=== PATIENT | female | born 1945 | race Caucasian/White ===

== ENCOUNTER 2019-10-05 13:44 | Outpatient (CLI) | payer MEDICARE, SELFPAY ==
[2019-10-05 15:43] LABS: Hepatitis B Surface Antigen Negative (Negative)
[2019-10-05 15:49] LABS: HAV RESULT Negative (Negative); Hepatitis B Core IgM Result Negative (Negative)
[2019-10-05 16:01] LABS: Hepatitis C Virus Antibody Negative (Negative)
[2019-10-08 00:22] LABS: NIL 0.01 IU/mL; Quantiferon TB Plus, 1T NEGATIVE (NEGATIVE); TB1-NIL 0.27 IU/mL
== END 2019-10-05 13:45 | disposition home or self-care (01) ==
PROVIDERS: PCP Family Medicine
DX: L40.0 Psoriasis vulgaris (principal); Z11.9 Encounter for screening for infectious and parasitic diseases, unspecified; Z79.899 Other long term (current) drug therapy
CPT/HCPCS: 36415; 80074; 86480; 86803

== ENCOUNTER 2019-10-08 12:17 | Outpatient (CLI) | payer MEDICARE, SELFPAY ==
--- NOTE | 2019-10-08 13:23 | ECG_ITS ---
Measurements Intervals [place] Rate: 75 P: 33 OR: 180 QRS: -13 QRSD: 84 T: -8 QT: 342 QTc: 383 Interpretive Statements SINUS RHYTHM LOW QRS VOLTAGE IN PRECORDIAL LEADS VOLTAGE CRITERIA FOR LVH BORDERLINE ST-T WAVE ABNORMALITY- ANT/INF LEADS BASELINE ARTIFACT- I, II, III, AVR, AVL, AVF BORDERLINE ECG Electronically Signed On 10-08-2019 13:45:44 AIRCRAFT STRU[employer] DESIGN ENGINEER by Glenn Feliz D.O.
[2019-10-08 13:54] LABS: Albumin Level 4.5 g/dL (3.5-5.1)
[2019-10-08 13:57] LABS: Hemoglobin A1C 5.9 % (<5.7)
[2019-10-08 13:58] LABS: Blood Urea Nitrogen 20 mg/dL (7-17); Calcium 11.7 mg/dL (8.4-10.2); Carbon Dioxide 33 mmol/L (22-30); Chloride 98 mmol/L (98-107); Estimated Glomerular Filt Rate 49; Glucose 94 mg/dL (65-105); Potassium 3.6 mmol/L (3.4-5.0); Sodium 140 mmol/L (137-145)
[2019-10-08 13:59] LABS: Basophils Percent Auto 0.2 % (0.2-1.2); Eosinophils Absolute Auto 0.1 K/mm3 (0-0.3); Eosinophils Percent Auto 1.9 % (0-4.4); Hematocrit 39.6 % (37.0-47.0); Hemoglobin 13.2 g/dL (12.0-15.0); Immature Granulocyte Absolute 0.02 K/mm3 (0.00-0.031); Immature Granulocyte Percent A 0.4 % (0-0.5); Lymphocytes Percent Auto 21.1 % (18.3-44.2); Mean Corpuscular HGB Conc 33.3 g/dl (32-36); Mean Corpuscular Hemoglobin 30.7 pg (26-34); Mean Corpuscular Volume 92.1 fl (80-100); Mean Platelet Volume 11.6 fl (7.4-10.4); Monocytes Absolute Auto 0.3 K/mm3 (0.1-0.6); Monocytes Percent Auto 5.8 % (2.6-8.5); Neutrophils Percent Auto 70.6 % (45.5-73.1); Platelet Count Result 217 k/mm3 (150-375); White Blood Count 5.7 K/mm3 (4.5-10.0)
[2019-10-08 14:00] LABS: Urine Cotinine NEGATIVE
== END 2019-10-08 12:18 | disposition home or self-care (01) ==
LOC: ANHSURGERY 12:21
PROVIDERS: Anesthesiology; PCP Family Medicine; Visit Provider Orthopaedic Surgery
DX: M17.0 Bilateral primary osteoarthritis of knee (principal); I10 Essential (primary) hypertension; R94.31 Abnormal electrocardiogram [ECG] [EKG]
CPT/HCPCS: 36415; 80048; 80307; 82040; 83036; 85025; 87081; 93005

== ENCOUNTER 2019-10-29 09:05 | Inpatient (IN) | payer MEDICARE, SELFPAY ==
[2019-10-08 12:28] VITALS: BMI 31.1
[2019-10-08 13:19] VITALS: BP 141/79; PULSE 74; RESP 18; TEMP 36.9; O2SAT 96
[2019-10-27] VITALS (13 sets, daily range): BP systolic 101–131; BP diastolic 50–93; PULSE 79–94; RESP 14–20; TEMP 36.3–36.9; O2SAT 92–100; BMI 33.3
--- NOTE | 2019-10-27 09:07 | WPDANESEPPF ---
Anes - Initial Pre Proc Eval Procedure: Operation Date: 10/27/19 11:00 Proposed Procedures p Left Total Knee Arthroplasty - Abiodun Santana MD Date/Time: 10/27/19 09:07 Surgeon: Abiodun Santana MD Pre Op Diagnosis: OA Left Knee Patient Data Age: 74 Gender: F Height: 1.55 m Weight: 74.7 kg Last Vital Signs Temp 36.9 C 10/08/19 13:19 Pulse 74 10/08/19 13:19 Resp 18 10/08/19 13:19 BP 141/79 H 10/08/19 13:19 Pulse Ox 96 10/08/19 13:19 Allergies Allergy/AdvReac Type Severity Reaction Status Date / Time No Known Allergies Allergy Unverified 10/27/19 09:32 Home Medications Medication Instructions Recorded Confirmed Type albuterol sulfate [Ventolin HFA] 2 puff INHALATION PRN PRN 10/08/19 10/08/19 History apremilast [Otezla] 30 mg PO BID 10/08/19 10/08/19 History atorvastatin 20 mg PO DAILY 10/08/19 10/08/19 History cholecalciferol (vitamin D3) 2,000 unit PO DAILY 10/08/19 10/08/19 History citalopram 10 mg PO DAILY 10/08/19 10/08/19 History cyanocobalamin (vitamin B-12) 1,000 mcg PO DAILY 10/08/19 10/08/19 History fenofibrate 150 mg PO DAILY 10/08/19 10/08/19 History furosemide 20 mg PO DAILY 10/08/19 10/08/19 History lisinopril-hydrochlorothiazide 1 tablet PO DAILY 10/08/19 10/08/19 History lorazepam 0.5 mg PO PRN PRN 10/08/19 10/08/19 History meloxicam 7.5 mg PO DAILY 10/08/19 10/08/19 History pantoprazole 40 mg PO QAM 10/08/19 10/08/19 History ECG: Date of Service: 10/08/19 Procedure(s): CA 12 lead EKG Accession Number(s): [id number] cc: ~ Measurements Intervals [place] Rate: 75 P: 33 PA: 180 QRS: -13 QRSD: 84 T: -8 QT: 342 QTc: 383 Interpretive Statements SINUS RHYTHM LOW QRS VOLTAGE IN PRECORDIAL LEADS VOLTAGE CRITERIA FOR LVH BORDERLINE ST-T WAVE ABNORMALITY- ANT/INF LEADS BASELINE ARTIFACT- I, II, III, AVR, AVL, AVF BORDERLINE ECG Electronically Signed On 10-08-2019 13:45:44 AIR CREW OFFICER by Glenn Feliz D.O. Dictated By: Glenn Feliz DO 10/08/19 1353 Patient hx anesthesia problems: none Family hx anesthesia problems: none PMFSH Past Medical History Medical History (Updated 10/27/19 @ 09:15 by Scar Ace MD) Anxiety Asthma Cancer UTERINE Diabetes Essential hypertension Gastroesophageal reflux disease Hypercholesterolemia Localized osteoarthritis of left knee Obstructive sleep apnea (adult) (pediatric) DEJA (obstructive sleep apnea) Psoriasis SOB (shortness of breath) Surgical History Surgical History Osteoarthritis of both knees Social History Social History Smoking status: Never smoker Alcohol intake: never Anes - Eval Final PreProcedure Day of Procedure 10/27/19 09:07 Patient weight: obese Heart: regular rate and rhythm Lungs: clear to auscultation and normal air movement Airway: Mallampati scale class II Neurological: alert and oriented Last oral intake: >/= 8 hours ASA classification: III Emergent: no Anesthetic plan: proceed Anesthesia type and monitoring: general LMA Informed Consent: The patient's anesthetic plan and its attendant risks and benefits were discussed with the patient/family/POA. Questions were solicited and answers provided to the satisfaction of the patient/family/POA.
--- NOTE | 2019-10-27 09:57 | WPDANESPNB ---
Anes - Peripheral Nerve Block Date/Time: 10/27/19 09:57 I have discussed with the patient/family/POA the placement of a peripheral nerve block for post-operative pain management, including associated risks, benefits, complications, and side effects. Alternative methods of post-operative analgesia were detailed. Questions were solicited and answers provided to the satisfaction of the patient/family/POA. Time-Out: A pre-procedural Time-Out was completed immediately before starting the procedure and confirmed: Patient Identification, Site, Procedure, Patient Position and the Availability of Requisite Equipment. Clinical Indications: Acute post-operative pain management requested by the operative surgeon. Nerve Block Insertion Note Anes-nerve block: adductor canal left Patient position: supine Skin prep: chlorhexidine Needle: 22 gauge, stimulating, insulated echogenic needle. Needle length: 80 mm Technique: ultrasound Technique comment: in plane Injectate: bupivacaine 0.5% with epi 5 mcg/ml (30cc) Observations: tolerated well Complications: none Procedure start time:: 1105 Procedure end time:: 1110
[2019-10-27] MEDS: LACTATED RINGERS 1,000 ML 30 ML IV CONT ×2 (10:00→13:24)
[2019-10-27 10:01] LABS: Estimated CRCL calculation 45 ml/min; Estimated Glomerular Filt Rate > 60
--- NOTE | 2019-10-27 10:38 | WPDHPUPDATE1 ---
History and Physical Update Update Date/Time: 10/27/19 10:38 History and Physical has been reviewed, including an updated exam of the patient. There are NO changes in the patient's condition. Risks, benefits, and alternatives have been discussed and questions answered. Patient agrees to proceed with procedure.
--- NOTE | 2019-10-27 11:26 | SUR.PREOP ---
[id number]. [facility] AND [facility]VROSE AWARE OF TODAY'S GFR RESULT, WILL PROCEED.
[2019-10-27] MEDS: ceFAZolin 2 GM/D5W 50 ML 2 GM/50 ML BAG IVPB (11:27)
[2019-10-27] MEDS: GENTAMICIN BONE CEMENT REFOBACIN 1 EACH TOPICAL (12:07)
--- NOTE | 2019-10-27 13:17 | PM.PROC ---
Procedure Note - Detailed Date of procedure: 10/27/19 Pre-op diagnosis: OA Left Knee Post-op diagnosis: same Procedure performed: Total knee arthroplasty, left Implants: [place] [employer] size 3 press-fit femur, size 3 cemented low-profile tibia, 13mm CS polyethylene insert, 35mm asymmetric metal backed patellar component. Anesthesia: GETA and regional (subsartorial nerve block) Surgeon: Abiodun Santana MD Drains: No Complications: None Findings: Fair bone quality. Very large medial release. PCL good quality. Standard bone resections. OPERATIVE DETAILS: The patient was given a nerve block preoperatively, and then brought to the operating room. A general anesthetic was administered. The leg was prepped and draped in the usual sterile fashion. The limb was elevated and the tourniquet inflated to 300 mmHg during initial exposure. A longitudinal incision was created along the medial border of the patella and patellar tendon, and a minimally invasive optimized mid-vastus approach to the knee was performed. A large medial release was taken. The knee was then flexed. The osteophytes were carefully removed. The intramedullary guide was placed in the femoral canal. The distal femoral resection was then taken with the oscillating saw. The collateral ligaments were carefully protected. The tibia was carefully exposed. The jig was applied, and the proximal tibia was resected according to preoperative plan. The knee was balanced in extension. Appropriate releases were taken where needed. The anterior cruciate ligament and meniscal remnants were removed. The posterior cruciate ligament was preserved. The patella was measured. Patellar resection was carried out with the oscillating saw. The lug holes drilled. The femur was sized and rotation assessed using a combination of gap balancing, posterior referencing, and the AP axis. The 4 in 1 cutting block was used to finish the femoral cuts after equal gaps were assured. The lug holes were drilled. The osteophytes were carefully removed from the back of the knee. The knee was copiously irrigated with antibiotic solution periodically throughout the procedure. The meniscal remnants were removed. The spacer block was used to confirm equal flexion and extension gaps. Further releases were performed as needed. The tibia was sized and broached. The bony surfaces were prepared for cementing with pulsatile lavage. The real tibial component was cemented into position followed by press fitting the femoral component. Excess cement was carefully removed. The patella component was press-fit. Patellar tracking was carefully assessed. No additional releases were required. The wound was closed with #1 Vycril suture, #2 Quill suture, 0-Quill suture, and 2-0 Quill suture followed by Steri-Strips. A sterile bulky dressing was applied. Meticulous hemostasis was maintained throughout the procedure. There were no complications. The patient was extubated and brought to the recovery room in stable condition after the application of sterile dressing with Zeke bandage.
--- NOTE | 2019-10-27 13:43 | SUR.PHASEI ---
1325 raduiology at bedside to do xray lt knee
--- NOTE | 2019-10-27 14:35 | SUR.PHASEI ---
1435 sbar faxed to floor, family updated and sent to floor
--- NOTE | 2019-10-27 15:28 | ADMGEN ---
This patient, Leia Jane, was admitted to [facility] Surg Room 328-01. Patient/family oriented to hospital policies and general routines including ID bracelet, bed and alarms, visiting hours, pain management, procedures, bathroom and other care routines, personal items, smoking policy, room service/diet, and visiting hours. Valuables list has been completed. Information on how to activate the Rapid Response Team has been discussed. Patient/Family are encouraged to report perceived risks to care and to ask questions if they do not understand what they are told or what they should do.
[2019-10-27] MEDS: DOCUSATE SODIUM 100 MG CAPSULE PO (17:50)
[2019-10-27] MEDS: ASPIRIN 81 MG ENTERIC TABLET PO (17:50)
--- NOTE | 2019-10-27 18:34 | P.CONIM_ITS ---
Assessment and Plan Assessment and plan (1) Localized osteoarthritis of left knee: Code(s): M17.12 - Unilateral primary osteoarthritis, left knee Status: Acute Assessment and Plan: * Doing well POD 0 Left TKA (2) Hypercalcemia: Code(s): E83.52 - Hypercalcemia Status: Acute Assessment and Plan: * DDx includes medication induced (HCTZ), hyperparathyroidism, paraneoplastic, myeloma * Hold HCTZ * f/u BMP, Phos, Mag, PTH, 25-OHD, protein (3) Diabetes: Qualifiers: Diabetes mellitus type: type 2 Diabetes mellitus exterminator helper termite insulin use: without exterminator helper termite use Diabetes mellitus complication status: without compli cation Qualified Code(s): E11.9 - Type 2 diabetes mellitus without complic ations Code(s): E11.9 - Type 2 diabetes mellitus without complications Status: Acute Assessment and Plan: * A1c 5.9 on diet control * Monitor AM sugar (4) Essential hypertension: Code(s): I10 - Essential (primary) hypertension Status: Acute Assessment and Plan: * Hold HCTZ and furosemide * Hold lisinopril as BP is 117 systolic tonight * Monitor (5) Gastroesophageal reflux disease: Qualifiers: Esophagitis presence: without esophagitis Qualified Code(s): K21.9 - Gastro-esophageal reflux disease without esophagitis Code(s): K21.9 - Gastro-esophageal reflux disease without esophagitis Status: Acute Assessment and Plan: * Doing well since weight loss * PRN antacid (6) DEJA (obstructive sleep apnea): Code(s): G47.33 - Obstructive sleep apnea (adult) (pediatric) Status: Acute Assessment and Plan: * Monitor for s/sx (7) Asthma: Qualifiers: Asthma severity: mild Asthma persistence: intermittent Asthma complication type: uncomplicated Qualified Code(s): J45.20 - Mild intermittent asthma, uncomplicated Code(s): J45.909 - Unspecified asthma, uncomplicated Status: Acute Assessment and Plan: * Mild, intermittent * Continue prn albuterol (8) Psoriasis: Code(s): L40.9 - Psoriasis, unspecified Status: Chronic Assessment and Plan: * Continue otezla HPI Data of Consult Consult date: 10/27/19 Requesting Physician: Abiodun Santana MD Primary Care Provider: Khang Greer MD Consult Narrative Narrative: Leia Jane is a 74 year old female with a history of chronic osteoarthritis of her knees. Over last year so she has been getting steroid injections in her knees every 3 months in order to maintain her mobility. The pain is progressed the point where she was having rest pain in her left knee. It would pop in clinic. It interfered with the activities she was to part icipate in. Her right knee was also causing problems. But the left was worsened she wished to fix it 1st. Today she had an uneventful left total knee arthroplasty. She is now alert and enjoying her evening meal. She has only minor pain at the incision site She denied other arthritic pains. She denied swollen hot red or tender joints. She denied fevers chills sweats. She denied chronic cough dyspnea or chest pain. She does have a history of asthma and has occasional wheezing. She has i nhaler to use intermittently. She has no swelling in the feet. No bowel or bladder issues. No abnormal bleeding. She does have sleep apnea but stopped using her CPAP after she lost several lb for her surgery. Review of Systems Review of Systems: All systems reviewed & are unremarkable except as noted in
--- NOTE | 2019-10-27 18:34 | PM.IMCN ---
Assessment and Plan Assessment and plan (1) Localized osteoarthritis of left knee: Code(s): M17.12 - Unilateral primary osteoarthritis, left knee Status: Acute Assessment and Plan: Doing well POD 0 Left TKA (2) Hypercalcemia: Code(s): E83.52 - Hypercalcemia Status: Acute Assessment and Plan: DDx includes medication induced (HCTZ), hyperparathyroidism, paraneoplastic, myeloma Hold HCTZ f/u BMP, Phos, Mag, PTH, 25-OHD, protein (3) Diabetes: Qualifiers: Diabetes mellitus type: type 2 Diabetes mellitus fci insulin use: without oysterman use Diabetes mellitus complication status: without complication Qualified Code(s): E11.9 - Type 2 diabetes mellitus without complications Code(s): E11.9 - Type 2 diabetes mellitus without complications Status: Acute Assessment and Plan: A1c 5.9 on diet control Monitor AM sugar (4) Essential hypertension: Code(s): I10 - Essential (primary) hypertension Status: Acute Assessment and Plan: Hold HCTZ and furosemide Hold lisinopril as BP is 117 systolic tonight Monitor (5) Gastroesophageal reflux disease: Qualifiers: Esophagitis presence: without esophagitis Qualified Code(s): K21.9 - Gastro-esophageal reflux disease without esophagitis Code(s): K21.9 - Gastro-esophageal reflux disease without esophagitis Status: Acute Assessment and Plan: Doing well since weight loss PRN antacid (6) DEJA (obstructive sleep apnea): Code(s): G47.33 - Obstructive sleep apnea (adult) (pediatric) Status: Acute Assessment and Plan: Monitor for s/sx (7) Asthma: Qualifiers: Asthma severity: mild Asthma persistence: intermittent Asthma complication type: uncomplicated Qualified Code(s): J45.20 - Mild intermittent asthma, uncomplicated Code(s): J45.909 - Unspecified asthma, uncomplicated Status: Acute Assessment and Plan: Mild, intermittent Continue prn albuterol (8) Psoriasis: Code(s): L40.9 - Psoriasis, unspecified Status: Chronic Assessment and Plan: Continue otezla HPI Data of Consult Consult date: 10/27/19 Requesting Physician: Abiodun Santana MD Primary Care Provider: Khang Greer MD Consult Narrative Narrative: Leia Jane is a 74 year old female with a history of chronic osteoarthritis of her knees. Over last year so she has been getting steroid injections in her knees every 3 months in order to maintain her mobility. The pain is progressed the point where she was having rest pain in her left knee. It would pop in clinic. It interfered with the activities she was to participate in. Her right knee was also causing problems. But the left was worsened she wished to fix it 1st. Today she had an uneventful left total knee arthroplasty. She is now alert and enjoying her evening meal. She has only minor pain at the incision site She denied other arthritic pains. She denied swollen hot red or tender joints. She denied fevers chills sweats. She denied chronic cough dyspnea or chest pain. She does have a history of asthma and has occasional wheezing. She has inhaler to use intermittently. She has no swelling in the feet. No bowel or bladder issues. No abnormal bleeding. She does have sleep apnea but stopped using her CPAP after she lost several lb for her surgery. Review of Systems Review of Systems: All systems reviewed & are unremarkable except as noted in HPI and below PMFSH Past Medical History Medical History (Updated 10/27/19 @ 18:55 by Rashad Escobar MD) Anxiety Asthma Cancer UTERINE Diabetes Essential hypertension Gastroesophageal reflux disease Hx of malignant neoplasm of uterine body Hypercholesterolemia Localized osteoarthritis of left knee Obstructive sleep apnea (adult) (pediatric) DEJA (obstructive sleep apnea) Psoriasis SOB (shortness of deya
[2019-10-28 02:00] VITALS: BP 107/57; PULSE 68; RESP 18; TEMP 36.4; O2SAT 98
[2019-10-28 06:00] VITALS: BP 108/60; PULSE 69; RESP 18; TEMP 36.4; O2SAT 100
[2019-10-28 06:08] LABS: Basophils Percent Auto 0.1 % (0.2-1.2); Eosinophils Percent Auto 0.1 % (0-4.4); Hematocrit 32.3 % (37.0-47.0); Hemoglobin 10.7 g/dL (12.0-15.0); Immature Granulocyte Absolute 0.04 K/mm3 (0.00-0.031); Immature Granulocyte Percent A 0.5 % (0-0.5); Lymphocytes Absolute Auto 0.79 K/mm3 (0.9-3.2); Lymphocytes Percent Auto 9.7 % (18.3-44.2); Mean Corpuscular HGB Conc 33.1 g/dl (32-36); Mean Corpuscular Hemoglobin 30.7 pg (26-34); Mean Corpuscular Volume 92.8 fl (80-100); Mean Platelet Volume 11.7 fl (7.4-10.4); Monocytes Absolute Auto 0.5 K/mm3 (0.1-0.6); Monocytes Percent Auto 6.4 % (2.6-8.5); Neutrophils Absolute Auto 6.8 K/mm3 (1.3-6.7); Neutrophils Percent Auto 83.2 % (45.5-73.1); Platelet Count Result 166 k/mm3 (150-375); Red Blood Count 3.48 M/mm3 (4.2-5.4); Red Cell Distribution Width 11.9 % (11.5-14.5); White Blood Count 8.1 K/mm3 (4.5-10.0)
[2019-10-28 06:32] LABS: Parathyroid Intact 57.9 pg/mL (7.5-53.5)
[2019-10-28 06:33] LABS: Alanine Aminotransferase 25 U/L (4-35); Albumin Level 3.6 g/dL (3.5-5.1); Alkaline Phosphatase 54 U/L (38-126); Aspartate Amino Transferase 42 U/L (14-36); Bilirubin,Total 0.4 mg/dL (0.2-1.3); Blood Urea Nitrogen 23 mg/dL (7-17); Calcium 11.2 mg/dL (8.4-10.2); Carbon Dioxide 30 mmol/L (22-30); Chloride 98 mmol/L (98-107); Estimated CRCL calculation 42 ml/min; Estimated Glomerular Filt Rate 54; Glucose 136 mg/dL (65-105); Magnesium 1.6 mg/dL (1.6-2.3); Phosphorus 2.8 mg/dL (2.5-4.5); Potassium 3.9 mmol/L (3.4-5.0); Sodium 135 mmol/L (137-145)
[2019-10-28 07:07] LABS: Vitamin D 25 Hydroxy 76.4 ng/mL
[2019-10-28] MEDS: PANTOPRAZOLE 40 MG TABLET PO (07:52)
[2019-10-28] MEDS: FENOFIBRATE 160 MG TABLET PO (07:53)
[2019-10-28] MEDS: CYANOCOBALAMIN 1,000 MCG TABLET 1000 MCG PO (07:53)
[2019-10-28] MEDS: DOCUSATE SODIUM 100 MG CAPSULE PO ×2 (07:53→16:54)
[2019-10-28] MEDS: CHOLECALCIFEROL 1,000 UNIT TABLET 2000 UNITS PO (07:53)
[2019-10-28] MEDS: ASPIRIN 81 MG ENTERIC TABLET PO ×2 (07:53→16:54)
[2019-10-28] MEDS: CITALOPRAM HYDROBROMIDE 10 MG TABLET PO (07:53)
[2019-10-28] MEDS: MELOXICAM 7.5 MG TABLET PO (07:53)
[2019-10-28] MEDS: ATORVASTATIN 20 MG TABLET PO (07:53)
--- NOTE | 2019-10-28 13:37 | P.PNAN_ITS ---
Anes - Prog Note Post-Op Date/Time: 10/28/19 13:37 Cardiovascular status: normal Respiratory status: normal Airway patency: baseline Mental status: baseline Post-Op hydration status: normal Vital Signs: Last Vital Signs Temp 36.4 C 10/28/19 06:00 Pulse 69 10/28/19 06:00 Resp 18 10/28/19 06:00 BP 108/60 10/28/19 06:00 Pulse Ox 100 10/28/19 06:00 I/O: Intake & Output 10/27/19 10/28/19 10/28/19 23:59 07:59 15:59 Intake Total 590 600 270 Output Total 200 Balance 590 400 270 Laboratory Tests 10/28/19 05:44 10/28/19 05:44 10/28/19 10/28/19 10/28/19 05:44 05:44 05:44 WBC 8.1 RBC 3.48 L Hgb 10.7 L Hct 32.3 L MCV 92.8 MCH 30.7 MCHC 33.1 RDW 11.9 Plt Count 166 MPV 11.7 H Immature Gran % (Auto) 0.5 Neut % (Auto) 83.2 H Lymph % (Auto) 9.7 L [place] % (Auto) 6.4 Eos % (Auto) 0.1 Baso % (Auto) 0.1 L Lymph # (Auto) 0.79 L [place] # (Auto) 0.5 Eos # (Auto) 0.0 Baso # (Auto) 0.0 Abs Immat Gran (auto) 0.04 H Absolute Neuts (auto) 6.8 H Absolute Nucleated RBC 0.0 Nucleated RBC % 0.0 Sodium 135 L Potassium 3.9 Chloride 98 Carbon Dioxide 30 BUN 23 H Creatinine 1.00 Estim Creat Clear Calc 42 Estimated GFR 54 L Glucose 136 H Calcium 11.2 H Phosphorus 2.8 Magnesium 1.6 Total Bilirubin 0.4 Direct Bilirubin 0.0 AST 42 H ALT 25 Alkaline Phosphatase 54 Total Protein 6.0 L Albumin 3.6 Vitamin D 25-Hydroxy 76.4 PTH Intact 57.9 H Post-procedural complaints: none Patient Feedback: Patient satisfied with anesthetic care.
[2019-10-28 14:00] VITALS: BP 116/58; PULSE 68; RESP 16; TEMP 36.7; O2SAT 100
--- NOTE | 2019-10-28 14:09 | PM.IMPN ---
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 insulin use: without half-way use Diabetes mellitus complication status: without complication Qualified Code(s): E11.9 - Type 2 diabetes mellitus without complications Code(s): E11.9 - Type 2 diabetes mellitus without complications Status: Acute Assessment and Plan: A1c 5.9 on diet control Monitor AM sugar (4) Essential hypertension: Code(s): I10 - Essential (primary) hypertension Status: Acute Assessment and Plan: Hold HCTZ and furosemide Hold lisinopril as BP is 108/60 Monitor (5) Gastroesophageal reflux disease: Qualifiers: Esophagitis presence: without esophagitis Qualified Code(s): K21.9 - Gastro-esophageal reflux disease without esophagitis Code(s): K21.9 - Gastro-esophageal reflux disease without esophagitis Status: Acute Assessment and Plan: Doing well since weight loss PRN antacid (6) DEJA (obstructive sleep apnea): Code(s): G47.33 - Obstructive sleep apnea (adult) (pediatric) Status: Acute Assessment and Plan: Monitor for s/sx (7) Asthma: Qualifiers: Asthma severity: mild Asthma persistence: intermittent Asthma complication type: uncomplicated Qualified Code(s): J45.20 - Mild intermittent asthma, uncomplicated Code(s): J45.909 - Unspecified asthma, uncomplicated Status: Acute Assessment and Plan: Mild, intermittent Continue prn albuterol (8) Psoriasis: Code(s): L40.9 - Psoriasis, unspecified Status: Chronic Assessment and Plan: Continue otezla Subjective Date/time seen: 10/28/19 14:09 Interval history: Moderate pain and stiffness left knee. No other c/o. Tolerated PT/OT w/o CP or sob or dizziness. No BM yet. No dysuria. Review of Systems Review of Systems: All systems reviewed & are unremarkable except as noted in HPI and below Exam Narrative: Exam Narrative: HEENT: EOMI, PERRL, sclerae nonicteric, pharyngeal mucosa pink and intact NECK: No JVD, adenopathy, or thyromegaly CHEST: Clear to auscultation. Normal effort. HEART: NL S1/S2, regular, no murmur ABDOMEN: BS+, soft, nontender, no mass, no bruits EXTREMITIES: No cyanosis, edema, or clubbing NEUROLOGIC: CN intact and symmetric to inspection. MUSCULOSKELETAL: Tone and strength symmetric. PSYCH: Alert. Oriented to person, place, and time. Objective Data Vital Signs Vital Signs: Vital Signs - 24 hr 10/27/19 14:21 10/27/19 14:38 10/27/19 14:55 Temperature Pulse Rate 92 92 83 Respiratory Rate 14 14 16 Blood Pressure 111/52 L 108/93 H 113/59 L Pulse Oximetry 92 92 95 10/27/19 15:15 10/27/19 16:00 10/27/19 16:30 Temperature 97.5 F L Pulse Rate 84 84 85 Respiratory Rate 16 16 16 Blood Pressure 101/69 112/50 L 101/70 Pulse Oximetry 95 93 93 10/27/19 17:00 10/27/19 22:00 10/28/19 02:00 Temperature 97.8 F 97.8 F 97.5 F L Pulse Rate 94 82 68 Respiratory Rate 16 16 18 Blood Pressure 117/71 127/70 107/57 L Pulse Oximetry 95 97 98 10/28/19 06:00 Temperature 97.6 F Pulse Rate 69 Respiratory Rate 18 Blood Pressure 108/60 Pulse Oximetry 100 Intake/Output Intake/Output: Intake & Output 10/25/19 10/26/19 10/27/19 10/28/19 23:59 23:59 23:59 23:59 Intake Total 1240 870 Output Total 200 Balance 1240 670 Meds/Results Medications: Active Medications Generic Name Dose Route Start Last Admin Trade Name Freq
--- NOTE | 2019-10-28 14:28 | PCCCNOTE ---
On 10/28/19, the student, [ Belinda Elmore], provided care and completed [facility] documentation on this patient. I have reviewed the student's documentation and agree with the findings.
--- NOTE | 2019-10-28 17:28 | PM.PNORT ---
Progress Note: A&P Assessment and Plan (1) Aftercare following knee joint replacement surgery: Code(s): Z47.1 - Aftercare following joint replacement surgery; Z96.659 - Presence of unspecified artificial knee joint Status: Acute Assessment and Plan: Increasing pain. Mobilizing slowly. Possible discharge tomorrow. Subjective Subjective Date/Time Seen: 10/28/19 17:28 Interval history: Patient is doing well. Moderate pain. Mobilizing slowly. Exam Narrative: Exam Narrative: Wound is healing well. No drainage, or hematoma. Anterior tibialis and EHL 5/5. No edema. Calves non tender. Const: Orientation/consciousness: patient oriented x3 Neuro: General: patient oriented x3 Extrem: General: capillary refill normal, no calf tenderness bilaterally and no pedal edema Psych: Affect: normal affect Objective Data Vital Signs Vital Signs: Vital Signs - 24 hr 10/27/19 22:00 10/28/19 02:00 10/28/19 06:00 Temperature 36.6 C 36.4 C L 36.4 C Pulse Rate 82 68 69 Respiratory Rate 16 18 18 Blood Pressure 127/70 107/57 L 108/60 Pulse Oximetry 97 98 100 Intake/Output Intake/Output: Intake & Output 10/25/19 10/26/19 10/27/19 10/28/19 23:59 23:59 23:59 23:59 Intake Total 1240 870 Output Total 200 Balance 1240 670 Meds/Results Medications: Active Medications Generic Name Dose Route Start Last Admin Trade Name Freq PRN Reason Stop Dose Admin Albuterol 2 puff 10/27/19 15:07 Proventil Hfa INHALATION PRN PRN Shortness Of Breath Aspirin 81 mg 10/27/19 17:00 10/28/19 16:54 Aspirin Ec PO 81 mg BID MARK Administration Atorvastatin Calcium 20 mg 10/28/19 09:00 10/28/19 07:53 Lipitor PO 20 mg DAILY MARK Administration Citalopram Hydrobromide 10 mg 10/28/19 09:00 10/28/19 07:53 Celexa PO 10 mg DAILY MARK Administration Cyanocobalamin 1,000 mcg 10/28/19 09:00 10/28/19 07:53 Vitamin B-12 Tab PO 1,000 mcg DAILY MARK Administration Diphenhydramine HCl 25 mg 03/03/20 15:07 Benadryl Inj IV PUSH Q6H PRN Itching Docusate Sodium 100 mg 10/27/19 17:00 10/28/19 16:54 Colace Capsule PO 100 mg BID MARK Administration Fenofibrate 160 mg 10/28/19 09:00 10/28/19 07:53 Fenofibrate PO 11/27/19 09:01 160 mg DAILY MARK Administration Furosemide 20 mg 10/28/19 09:00 Lasix Tablet PO DAILY MARK Hydrochlorothiazide 25 mg 10/28/19 09:00 Hydrochlorothiazide PO QAM MARK Acetaminophen 1,000 mg in 100 mls @ 400 mls/hr 10/27/19 18:00 10/28/19 17:00 Ofirmev 1,000 Mg Ivpb IVPB 10/28/19 18:01 400 mls/hr Q6HR MARK Administration Lisinopril 20 mg 10/28/19 09:00 Prinivil PO QAM MARK Lorazepam 0.5 mg 10/27/19 15:07 Ativan Tab PO PRN PRN Anxiety Meloxicam 7.5 mg 10/28/19 09:00 10/28/19 07:53 Mobic PO 7.5 mg DAILY [facility] Administration Naloxone HCl 0.1 mg 10/27/19 15:07 Narcan IV PUSH Q2M PRN Opiate Reversal Non-Formulary Medication 30 mg 10/27/19 17:00 Apremilast [Otezla] PO 11/26/19 17:01 BID [facility] Ondansetron HCl 4 mg 10/27/19 15:07 Zofran Inj IV PUSH Q4H PRN Nausea And Vomiting Oxycodone HCl 5 mg 10/27/19 15:07 10/27/19 21:37 Roxicodone Ir Tablet PO 5 mg Q4H PRN Administration Pain Rated 4-6 Oxycodone HCl 10 mg 10/27/19 15:07 10/28/19 16:54 Roxicodone Ir Tablet PO 10 mg Q4H PRN Administration Pain Rated 7-10 Pantoprazole Sodium 40 mg 10/28/19 09:00 10/28/19 07:52 Protonix PO 40 mg QAM [facility] Administration Vitamin D 2,000 unit 10/28/19 09:00 10/28/19 07:53 Vitamin D PO 2,000 unit DAILY MARK Administration Radiology Results: ITS Impressions Knee X-Ray 10/27/19 13:42 IMPRESSION: 1. New total left knee arthroplasty. Labs Labs: Laboratory Results - last 24 hr 10/28/19 10/28/19 10/28/19 05:44 05:44 05:44 WBC 8.1 RBC 3.48 L Hgb 10.7
[2019-10-28 22:00] VITALS: BP 122/61; PULSE 77; RESP 16; TEMP 36.6; O2SAT 96
--- NOTE | ~2019-10-29 | XR_ITS ---
EXAMINATION: XR knee LT 2V DATE: 10/27/2019 13:35 INDICATION: Left knee arthroplasty. Postop. TECHNIQUE: 2 views of left knee were obtained. COMPARISON: Left knee radiographs 07/16/2017 FINDINGS: There is a total left knee arthroplasty with patellar resurfacing. Tibia demonstrate 8 degr ees posterior angulation with respect to tibial component. No fracture. There is gas in the knee join t and soft tissues, consistent with recent surgery. IMPRESSION: 1. New total left knee arthroplasty. Reviewed, dictated and finalized at location A. [facility]
[2019-10-29 06:00] VITALS: BP 144/85; PULSE 95; RESP 18; TEMP 36.6; O2SAT 94
[2019-10-29 06:55] LABS: Hematocrit 33.4 % (37.0-47.0); Mean Corpuscular HGB Conc 32.9 g/dl (32-36); Mean Corpuscular Hemoglobin 30.9 pg (26-34); Mean Corpuscular Volume 93.8 fl (80-100); Mean Platelet Volume 11.7 fl (7.4-10.4); Platelet Count Result 168 k/mm3 (150-375); Red Blood Count 3.56 M/mm3 (4.2-5.4); Red Cell Distribution Width 11.9 % (11.5-14.5); White Blood Count 7.7 K/mm3 (4.5-10.0)
[2019-10-29 07:02] LABS: Blood Urea Nitrogen 18 mg/dL (7-17); Calcium 10.6 mg/dL (8.4-10.2); Carbon Dioxide 37 mmol/L (22-30); Chloride 98 mmol/L (98-107); Estimated CRCL calculation 42 ml/min; Estimated Glomerular Filt Rate 54; Glucose 134 mg/dL (65-105); Potassium 4.3 mmol/L (3.4-5.0); Sodium 136 mmol/L (137-145)
[2019-10-29] MEDS: ASPIRIN 81 MG ENTERIC TABLET PO ×2 (08:01→16:18)
[2019-10-29] MEDS: CITALOPRAM HYDROBROMIDE 10 MG TABLET PO (08:01)
[2019-10-29] MEDS: CYANOCOBALAMIN 1,000 MCG TABLET 1000 MCG PO (08:01)
[2019-10-29] MEDS: MELOXICAM 7.5 MG TABLET PO (08:01)
[2019-10-29] MEDS: ATORVASTATIN 20 MG TABLET PO (08:01)
[2019-10-29] MEDS: FENOFIBRATE 160 MG TABLET PO (08:01)
[2019-10-29] MEDS: CHOLECALCIFEROL 1,000 UNIT TABLET 2000 UNITS PO (08:02)
[2019-10-29] MEDS: PANTOPRAZOLE 40 MG TABLET PO (08:02)
[2019-10-29] MEDS: DOCUSATE SODIUM 100 MG CAPSULE PO ×2 (08:04→16:20)
[2019-10-29] MEDS: lisinopriL 20 MG TABLET PO (10:08)
--- NOTE | 2019-10-29 12:33 | P.PNIM_ITS ---
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: without buttermilk drier operator use Diabetes mellitus complication status: without comp lication Qualified Code(s): E11.9 - Type 2 diabetes mellitus without complications Code(s): E11.9 - Type 2 diabetes mellitus without complications Status: Acute Assessment and Plan: * A1c 5.9 on diet control * Monitor AM sugar (4) Essential hypertension: Code(s): I10 - Essential (primary) hypertension Status: Acute Assessment and Plan: * Hold HCTZ and furosemide * Hold lisinopril as BP remains normotensive * Monitor (5) Gastroesophageal reflux disease: Qualifiers: Esophagitis presence: without esophagitis Qualified Code(s): K21.9 - Gastro-esophageal reflux disease without esophagitis Code(s): K21.9 - Gastro-esophageal reflux disease without esophagitis Status: Acute Assessment and Plan: * Doing well since weight loss * PRN antacid (6) DEJA (obstructive sleep apnea): Code(s): G47.33 - Obstructive sleep apnea (adult) (pediatric) Status: Acute Assessment and Plan: * Monitor for s/sx (7) Asthma: Qualifiers: Asthma severity: mild Asthma persistence: intermittent Asthma complication type: uncomplicated Qualified Code(s): J45.20 - Mild intermittent asthma, uncomplicated Code(s): J45.909 - Unspecified asthma, uncomplicated Status: Acute Assessment and Plan: * Mild, intermittent * Continue prn albuterol (8) Psoriasis: Code(s): L40.9 - Psoriasis, unspecified Status: Chronic Assessment and Plan: * Continue otezla Subjective Date/time seen: 10/29/19 12:33 Interval history: Moderate to severe pain and stiffness left knee. Difficulty tolerating even passive ROM. Lives alone. Does not feel safe going home today. No other c/o. Tolerated PT/OT w/o CP or sob or dizziness. No GI c/o. No dysuria. Review of Systems Review of Systems: All systems reviewed & are unremarkable except as noted in HPI and below Exam Narrative: Exam Narrative: HEENT: EOMI, PERRL, sclerae nonicteric, pharyngeal mucosa pink and intact NECK: No JVD, adenopathy, or thyromegaly CHEST: Clear to auscultation. Normal effort. HEART: NL S1/S2, regular, no murmur ABDOMEN: BS+, soft, nontender, no mass, no bruits EXTREMITIES: No cyanosis, edema, or clubbing NEUROLOGIC: CN intact and symmetric to inspection. MUSCULOSKELETAL: Tone and strength symmetric. PSYCH: Alert. Oriented to person, place, and time. Objective Data Vital Signs Vital Signs: Vital Signs - 24 hr 10/28/19 14:00 10/28/19 22:00 10/29/19 06:00 Temperature 98.0 F 98 F 97.8 F Pulse Rate 68 77 95 Respiratory Rate 16 16 18 Blood Pressure 116/58 L 122/61 144/85 H Pulse Oximetr
--- NOTE | 2019-10-29 12:33 | PM.IMPN ---
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: 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 jail use Diabetes mellitus complication status: without complication Qualified Code(s): E11.9 - Type 2 diabetes mellitus without complications Code(s): E11.9 - Type 2 diabetes mellitus without complications Status: Acute Assessment and Plan: A1c 5.9 on diet control Monitor AM sugar (4) Essential hypertension: Code(s): I10 - Essential (primary) hypertension Status: Acute Assessment and Plan: Hold HCTZ and furosemide Hold lisinopril as BP remains normotensive Monitor (5) Gastroesophageal reflux disease: Qualifiers: Esophagitis presence: without esophagitis Qualified Code(s): K21.9 - Gastro-esophageal reflux disease without esophagitis Code(s): K21.9 - Gastro-esophageal reflux disease without esophagitis Status: Acute Assessment and Plan: Doing well since weight loss PRN antacid (6) DEJA (obstructive sleep apnea): Code(s): G47.33 - Obstructive sleep apnea (adult) (pediatric) Status: Acute Assessment and Plan: Monitor for s/sx (7) Asthma: Qualifiers: Asthma severity: mild Asthma persistence: intermittent Asthma complication type: uncomplicated Qualified Code(s): J45.20 - Mild intermittent asthma, uncomplicated Code(s): J45.909 - Unspecified asthma, uncomplicated Status: Acute Assessment and Plan: Mild, intermittent Continue prn albuterol (8) Psoriasis: Code(s): L40.9 - Psoriasis, unspecified Status: Chronic Assessment and Plan: Continue otezla Subjective Date/time seen: 10/29/19 12:33 Interval history: Moderate to severe pain and stiffness left knee. Difficulty tolerating even passive ROM. Lives alone. Does not feel safe going home today. No other c/o. Tolerated PT/OT w/o CP or sob or dizziness. No GI c/o. No dysuria. Review of Systems Review of Systems: All systems reviewed & are unremarkable except as noted in HPI and below Exam Narrative: Exam Narrative: HEENT: EOMI, PERRL, sclerae nonicteric, pharyngeal mucosa pink and intact NECK: No JVD, adenopathy, or thyromegaly CHEST: Clear to auscultation. Normal effort. HEART: NL S1/S2, regular, no murmur ABDOMEN: BS+, soft, nontender, no mass, no bruits EXTREMITIES: No cyanosis, edema, or clubbing NEUROLOGIC: CN intact and symmetric to inspection. MUSCULOSKELETAL: Tone and strength symmetric. PSYCH: Alert. Oriented to person, place, and time. Objective Data Vital Signs Vital Signs: Vital Signs - 24 hr 10/28/19 14:00 10/28/19 22:00 10/29/19 06:00 Temperature 98.0 F 98 F 97.8 F Pulse Rate 68 77 95 Respiratory Rate 16 16 18 Blood Pressure 116/58 L 122/61 144/85 H Pulse Oximetry 100 96 94 Intake/Output Intake/Output: Intake & Output 10/26/19 10/27/19 10/28/19 10/29/19 23:59 23:59 23:59 23:59 Intake Total 1240 1810 320 Output Total 1000 1100 Balance 1240 810 -780 Meds/Results Medications: Active Medications Generic Name Dose Route Start Last Admin Trade Name Freq PRN Reason Stop Dose Admin Albuterol 2 puff 10/27/19 15:07 Proventil Hfa INHALATION PRN PRN Shortness Of Breath Aspirin 81 mg 10/27/19 17:00 10/29/19 08:01 Aspirin Ec PO 81 mg BID MARK Administration
[2019-10-29 14:59] VITALS: BP 134/68; PULSE 93; RESP 16; TEMP 37.2; O2SAT 94
[2019-10-29 22:00] VITALS: BP 109/57; PULSE 88; RESP 18; TEMP 36.6; O2SAT 97
[2019-10-30 06:00] VITALS: BP 136/73; PULSE 86; RESP 18; TEMP 36.6; O2SAT 97
[2019-10-30 06:16] LABS: Hematocrit 32.3 % (37.0-47.0); Hemoglobin 10.5 g/dL (12.0-15.0); Mean Corpuscular HGB Conc 32.5 g/dl (32-36); Mean Corpuscular Hemoglobin 30.3 pg (26-34); Mean Corpuscular Volume 93.4 fl (80-100); Mean Platelet Volume 11.6 fl (7.4-10.4); Platelet Count Result 187 k/mm3 (150-375); Red Blood Count 3.46 M/mm3 (4.2-5.4); Red Cell Distribution Width 11.9 % (11.5-14.5); White Blood Count 6.3 K/mm3 (4.5-10.0)
[2019-10-30 06:33] LABS: Blood Urea Nitrogen 15 mg/dL (7-17); Calcium 10.5 mg/dL (8.4-10.2); Carbon Dioxide 35 mmol/L (22-30); Chloride 97 mmol/L (98-107); Estimated CRCL calculation 52 ml/min; Estimated Glomerular Filt Rate > 60; Glucose 94 mg/dL (65-105); Potassium 3.8 mmol/L (3.4-5.0); Sodium 136 mmol/L (137-145)
[2019-10-30] MEDS: ASPIRIN 81 MG ENTERIC TABLET PO (07:57)
[2019-10-30] MEDS: DOCUSATE SODIUM 100 MG CAPSULE PO (07:57)
[2019-10-30] MEDS: ATORVASTATIN 20 MG TABLET PO (07:57)
[2019-10-30] MEDS: lisinopriL 20 MG TABLET PO (07:58)
[2019-10-30] MEDS: PANTOPRAZOLE 40 MG TABLET PO (07:58)
[2019-10-30] MEDS: FENOFIBRATE 160 MG TABLET PO (07:58)
[2019-10-30] MEDS: CITALOPRAM HYDROBROMIDE 10 MG TABLET PO (07:58)
[2019-10-30] MEDS: MELOXICAM 7.5 MG TABLET PO (07:58)
[2019-10-30] MEDS: CYANOCOBALAMIN 1,000 MCG TABLET 1000 MCG PO (07:58)
[2019-10-30] MEDS: CHOLECALCIFEROL 1,000 UNIT TABLET 2000 UNITS PO (07:58)
--- NOTE | 2019-10-30 13:55 | PM.IMPN ---
Progress Note: A&P Assessment and Plan (1) Localized osteoarthritis of left knee: Code(s): M17.12 - Unilateral primary osteoarthritis, left knee Status: Acute Assessment and Plan: Doing well overall POD 3 Left TKA However, given her level of pain and poor tolerance of mobility, it may not yet be prudent to discharge her to home alone (2) Hypercalcemia: Code(s): E83.52 - Hypercalcemia Status: Acute Assessment and Plan: Lab c/w mild hyperparathyroidism Hold HCTZ Ca down from 11.7 to 10.5 Would benefit from DEXA as outpatient (3) Diabetes: Qualifiers: Diabetes mellitus complication status: without complication 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 detention use Diabetes mellitus type: type 2 Qualified Code(s): E11.9 - Type 2 diabetes mellitus without complications Code(s): E11.9 - Type 2 diabetes mellitus without complications Status: Acute Assessment and Plan: A1c 5.9 on diet control (4) Essential hypertension: Code(s): I10 - Essential (primary) hypertension Status: Acute Assessment and Plan: Hold HCTZ and furosemide Hold lisinopril as BP remains normotensive BP 136/73 without HCTZ and furosemide Will need outpatient f/u in 1-2 weeks (5) Gastroesophageal reflux disease: Qualifiers: Esophagitis presence: without esophagitis Qualified Code(s): K21.9 - Gastro-esophageal reflux disease without esophagitis Code(s): K21.9 - Gastro-esophageal reflux disease without esophagitis Status: Acute Assessment and Plan: Doing well since weight loss PRN antacid (6) DEJA (obstructive sleep apnea): Code(s): G47.33 - Obstructive sleep apnea (adult) (pediatric) Status: Acute Assessment and Plan: Monitor for s/sx (7) Asthma: Qualifiers: Asthma complication type: uncomplicated Asthma persistence: intermittent Asthma severity: mild Qualified Code(s): J45.20 - Mild intermittent asthma, uncomplicated Code(s): J45.909 - Unspecified asthma, uncomplicated Status: Acute Assessment and Plan: Mild, intermittent Continue prn albuterol (8) Psoriasis: Code(s): L40.9 - Psoriasis, unspecified Status: Chronic Assessment and Plan: Continue otezla Subjective Date/time seen: 10/30/19 13:55 Interval history: Feels much better today. Much less left knee pain. Plans outpatient PT. No cp sob gi/gu c/o. No abnormal bleeding. Review of Systems Review of Systems: All systems reviewed & are unremarkable except as noted in HPI and below Exam Narrative: Exam Narrative: HEENT: EOMI, PERRL, sclerae nonicteric, pharyngeal mucosa pink and intact NECK: No JVD, adenopathy, or thyromegaly CHEST: Clear to auscultation. Normal effort. HEART: NL S1/S2, regular, no murmur ABDOMEN: BS+, soft, nontender, no mass, no bruits EXTREMITIES: No cyanosis, edema, or clubbing NEUROLOGIC: CN intact and symmetric to inspection. MUSCULOSKELETAL: Tone and strength symmetric. PSYCH: Alert. Oriented to person, place, and time. Objective Data Vital Signs Vital Signs: Vital Signs - 24 hr 10/29/19 14:59 10/29/19 22:00 10/30/19 06:00 Temperature 98.9 F 97.9 F 97.9 F Pulse Rate 93 88 86 Respiratory Rate 16 18 18 Blood Pressure 134/68 109/57 L 136/73 Pulse Oximetry 94 97 97 Intake/Output Intake/Output: Intake & Output 10/27/19 10/28/19 10/29/19 10/30/19 23:59 23:59 23:59 23:59 Intake Total 1240 1810 1060 590 Output Total 1000 2550 900 Balance 1240 810 -1490 -310 Meds/Results Medications: Active Medications Generic Name Dose Route Start Last Admin Trade Name Freq PRN Reason Stop Dose Admin Albuterol 2 puff 10/27/19 15:07 Proventil Hfa INHALATION PRN PRN Shortness Of Breath Aspirin 81 mg 10/27/19 17:00 10/30/19 07:57 Aspirin Ec PO 81 mg BID MARK Administration Atorvastatin Calcium 20 mg 10/28/19
[2019-10-30 14:27] VITALS: BP 104/56; PULSE 90; RESP 18; TEMP 36.8; O2SAT 97
--- NOTE | 2019-10-30 17:36 | PM.DS ---
DS: Diagnosis Admitting Diagnosis Admitting Diagnosis: Bilateral primary osteoarthritis of knee Discharge Diagnosis (1) Localized osteoarthritis of left knee: Code(s): M17.12 - Unilateral primary osteoarthritis, left knee Status: Acute DS: Summary Hospital Course Reason for hospitalization: Total knee arthroplasty. Hospital Course: Tolerated surgery well. Progressed slowly with therapy. Status at Discharge Functional status at discharge: uses cane/walker Time Spent with Patient Time attestation: Total time spent providing and/or coordinating discharge services: Exam Const: General: no acute distress Resp: Effort & Inspection: normal respiratory effort Skin: Other: Wound healing well. Mepilex dressing intact. No hematoma or drainage. Neuro: Motor exam (neuro): 5/5 motor strength present throughout Sensory Exam: normal sensation Psych: Mental Status: mental status grossly normal Speech and movement: Normal speech and movement present DS: Data Data Completed and Pending Labs on day of discharge: Labs from last 24 hours 10/30/19 10/30/19 05:56 05:56 WBC 6.3 RBC 3.46 L Hgb 10.5 L Hct 32.3 L MCV 93.4 MCH 30.3 MCHC 32.5 RDW 11.9 Plt Count 187 MPV 11.6 H Sodium 136 L Potassium 3.8 Chloride 97 L Carbon Dioxide 35 H BUN 15 Creatinine 0.80 Estim Creat Clear Calc 52 Estimated GFR > 60 Glucose 94 Calcium 10.5 H Discharge Plan Discharge Attending physician on discharge: Abiodun Santana Consulting providers: Hosea Gonzales Discharging Clinician: Abiodun Santana Patient Disposition: Home, Self-Care Activity: december shower Diet: as tolerated Wound Care Instructions: follow printed instructions Discharge Instructions: See instruction sheet. Follow-up/Referrals: Abiodun Santana MD [Physician] - Discharge Medications: New aspirin [Enteric Coated Aspirin] 81 mg tablet,delayed release (DR/EC) 81 mg PO DAILY Qty: 28 RF: 0 oxycodone-acetaminophen 5-325 mg tablet 1 - 2 tablet PO Q4-6H MDD 8 tablets PRN (Reason: pain) Qty: 40 RF: 0 lisinopril 20 mg tablet 20 mg PO DAILY Qty: 30 RF: 0 Continued meloxicam 7.5 mg Tablet 7.5 mg PO DAILY RF: 0 furosemide 20 mg Tablet 20 mg PO DAILY RF: 0 atorvastatin 20 mg Tablet 20 mg PO DAILY RF: 0 citalopram 10 mg Tablet 10 mg PO DAILY RF: 0 lorazepam 0.5 mg Tablet 0.5 mg PO PRN PRN (Reason: Anxiety) RF: 0 pantoprazole 40 mg Tablet,Delayed Release (Dr/Ec) 40 mg PO QAM RF: 0 albuterol sulfate [Ventolin HFA] 90 mcg/actuation Hfa Aerosol Inhaler 2 puff INHALATION PRN PRN (Reason: Shortness Of Breath) RF: 0 fenofibrate 150 mg Capsule 150 mg PO DAILY RF: 0 cholecalciferol (vitamin D3) 50 mcg (2,000 unit) Capsule 2,000 unit PO DAILY RF: 0 Otezla 30 mg Tablet 30 mg PO BID RF: 0 cyanocobalamin (vitamin B-12) 1,000 mcg Capsule 1,000 mcg PO DAILY RF: 0 Discontinued lisinopril-hydrochlorothiazide 20-25 mg Tablet 1 tablet PO DAILY RF: 0 Date of admission: 10/29/19 12:56 Primary Care Provider: Khang Greer Admitting Provider: Abiodun Santana Interventions: Discharge Disposition Last Done: 10/30/19 15:00 Discharge Date/Time: 10/30/19 15:36 Attending physician on admission: Abiodun Santana Condition: Stable Quality VTE Prophylaxis VTE prophylaxis: mechanical ordered
== END 2019-10-30 15:36 | disposition home or self-care (01) | DRG 470 ==
LOC: ANHSURGERY 09:27 → ANH3MEDSUR 09:28
PROVIDERS: Internal Medicine; Admitting Provider Orthopaedic Surgery; PCP Family Medicine; Visit Provider Orthopaedic Surgery
PROC: 0SRD0J9 Replacement of Left Knee Joint with Synthetic Substitute, Cemented, Open Approach (ICD-10-PCS; CPT 27447; principal; 2019-10-27 11:00)
DX: M17.12 Unilateral primary osteoarthritis, left knee (principal); I10 Essential (primary) hypertension; K21.9 Gastro-esophageal reflux disease without esophagitis; E83.52 Hypercalcemia; E11.9 Type 2 diabetes mellitus without complications; L40.9 Psoriasis, unspecified; G47.33 Obstructive sleep apnea (adult) (pediatric); J45.909 Unspecified asthma, uncomplicated; F41.9 Anxiety disorder, unspecified; E66.9 Obesity, unspecified; Z68.33 Body mass index [BMI] 33.0-33.9, adult; Z85.42 Personal history of malignant neoplasm of other parts of uterus; Z90.49 Acquired absence of other specified parts of digestive tract; Z90.710 Acquired absence of both cervix and uterus
CPT/HCPCS: 36415; 73560; 80048; 80076; 82306; 82565; 83735; 83970; 84100; 85025; 85027; 86850; 86900; 86901; 97110; 97116; 97161; 97165; 97530; 97535; A9270; C1713; C1776; G0378; J0131; J0171; J0690; J1100; J1170; J1885; J2250; J2270; J2405; J2704; J2795; J3010; J7120

== ENCOUNTER 2019-11-30 13:15 | Outpatient (RCR) | payer MEDICARE, SELFPAY ==
--- NOTE | 2019-11-11 12:30 | PTOPEVAL ---
Thank you for referring this patient to [facility]. Please review, sign, date and return this plan of care NICHOLE. Pt referred to therapy following left TKR. She demonstrates LE impairments of decreased knee motion, LE weakness, decreased walking speed, decreased balance and decreased performance with daily act. She requires additional skilled therapy 2-3x/wk x 5 wk. I agree with and certify that the following plan of care is medically necessary. Referring Physician Date Attending Provider: Abiodun Santana MD Referring Provider: *PT Outpatient Evaluation Start: 11/11/19 10:36 Freq: Status: Active Protocol: Document 11/11/19 10:35 CAP (Rec: 11/11/19 11:49 CAP [id number]) Therapy Assessment Status Assessment Status Assessment Status Evaluation Outpatient Past Medical History Neurological History Hx Neurological Disorders No Significant History Cardiovascular History Hx Hypercholesterolemia Yes Hx Hypertension Yes Respiratory History Hx Asthma Yes: INHALER PRN Hx Sleep Apnea Yes: NO LONGER USES CPAP. LOST 100 LBS Gastrointestinal History Hx Cholecystectomy Yes: 2018 Hx Gastroesophageal Reflux Disease Yes Hx Pancreatitis Yes: 2018 Genitourinary History Hx Genitourinary Disorders No Significant History Musculoskeletal History Hx Arthritis Yes: KNEES Hx Fractures Yes: right clavicle 2 yrs Hx Joint Replacement Yes: 10/2019 LTKA Hx Orthopedic Surgery Yes: 10/2019 LTKA Hx Other Musculoskeletal Disorders Yes: OA LT KNEE Hematological History Hx Hematological Disorders No Significant History Endocrine History Hx Endocrine Disorders No Significant History HEENT History Hx HEENT Disorders No Significant History Integumentary History Hx Psoriasis Yes: scalp, bilat elbow Reproductive History Hx Hysterectomy Yes: R/T uterine ca Psychosocial History Hx Anxiety Yes: PANIC ATTACKS Pain History Has Past Pain Affected Your Daily Life Yes: LT KNEE Anesthesia History Hx Other Anesthesia Reactions Yes: PANIC ATTACKS WHEN WAKING UP Other History Hx Cancer Yes: UTERINE Evaluation Information Problem Diagnosis left TKR Onset 10/27/19 Cause OA knee Subjective Information Pt referred to therapy due to Query Text:As Reported By Patient/ left TKR. She was in [facility] for 10/26-10/30/19. She went to stay with family for 4 days after surgery. She returned home alone 1 wk ago. She reports she has
--- NOTE | 2019-12-01 14:50 | PCPTNOTE ---
Admitting Provider: Attending Provider: Abiodun Santana MD Patient:Leia Jane Date of :1945 Patient has not returned for any further treatments since 11/30/2019, therefore she will be discharged at this time. Pt informed therapy, her MD requested therapy to be discontinued. She is to continue with home exercise program. Patient?s initial visit was on 11/11/2019 and she had a total of 8 visits. The goals have not been achieved. Thank you for referring this patient to [facility]. Please review, sign, date and return this discharge summary NICHOLE. I have been updated about the patient's current status and I agree with discharge from the above service at this time. Referring Physician Date
== END 2020-01-26 12:56 | disposition home or self-care (01) ==
LOC: ANHPT 13:15
PROVIDERS: PCP Family Medicine; Visit Provider Orthopaedic Surgery
DX: Z48.89 Encounter for other specified surgical aftercare (principal); Z96.652 Presence of left artificial knee joint
CPT/HCPCS: 97110; 97116; 97140; 97162

== ENCOUNTER 2020-03-12 11:42 | Emergency (ER) | payer MEDICARE, SELFPAY ==
--- NOTE | ~2020-03-12 | XR_ITS ---
EXAMINATION: XR abdomen/kub 1V INDICATION: Constipation TECHNIQUE: Supine views of the abdomen were obtained on 2 radiographs. COMPARISON: None FINDINGS: There is a moderate volume of colonic stool. The bowel gas pattern is nonspecific. Cholecys tectomy clips are present in the right upper quadrant. The visualized lung bases are clear. IMPRESSION: 1. Moderate findings of colonic stool. Reviewed, dictated and finalized at location A.
--- NOTE | ~2020-03-12 | CT_ITS ---
EXAMINATION: CT abdomen pelvis w con DATE: 03/12/2020 15:03 INDICATION: Abdominal pain. Dysuria. Constipation. TECHNIQUE: Computed tomography (CT) of the abdomen and pelvis was performed with 100 mL Omnipaque 350 intravenous contrast. Automated exposure control and iterative reconstruction technique were employe d. The dose-length product was 437.91 mGy-cm. COMPARISON: CT abdomen and pelvis 01/21/2018 FINDINGS: The visualized portions of the lung bases demonstrate mild atelectasis. No pleural effusion . The heart size is normal. There are coronary artery calcifications. No pericardial effusion. The li rose demonstrates surface nodularity, consistent with cirrhosis. There are changes of cholecystectomy. There are 5 mm and 6 mm low-attenuation lesions in the spleen, likely granulomatous disease or cysts . The pancreas and adrenal glands are normal. There are cysts in the kidneys measuring up to 11 mm on the right. There is diverticulosis of the colon without evidence of diverticulitis. There are no dil ated loops of bowel. The appendix is normal. There are no pathologically enlarged lymph nodes. There is trace pelvic ascites. There is mild lumbar spondylosis. There are bridging endplate osteophytes at multiple levels in the thoracic spine, consistent with diffuse idiopathic skeletal hyperostosis (DIS H). IMPRESSION: 1. Cirrhosis of the liver. Reviewed, dictated and finalized at location A. IMPRESSION: 1. Cirrhosis of the liver.
[2020-03-12 11:52] VITALS: BP 157/89; PULSE 86; RESP 18; TEMP 36.8; O2SAT 99
[2020-03-12 14:10] LABS: Basophils Percent Auto 0.2 % (0.2-1.2); Eosinophils Absolute Auto 0.2 K/mm3 (0-0.3); Eosinophils Percent Auto 2.9 % (0-4.4); Hematocrit 38.9 % (37.0-47.0); Hemoglobin 13.1 g/dL (12.0-15.0); Immature Granulocyte Absolute 0.02 K/mm3 (0.00-0.031); Immature Granulocyte Percent A 0.3 % (0-0.5); Lymphocytes Absolute Auto 1.26 K/mm3 (0.9-3.2); Lymphocytes Percent Auto 21.6 % (18.3-44.2); Mean Corpuscular HGB Conc 33.7 g/dl (32-36); Mean Platelet Volume 11.3 fl (7.4-10.4); Monocytes Absolute Auto 0.3 K/mm3 (0.1-0.6); Monocytes Percent Auto 5.7 % (2.6-8.5); Neutrophils Percent Auto 69.3 % (45.5-73.1); Platelet Count Result 203 k/mm3 (150-375); Red Blood Count 4.37 M/mm3 (4.2-5.4); Red Cell Distribution Width 12.4 % (11.5-14.5); White Blood Count 5.8 K/mm3 (4.5-10.0)
[2020-03-12 14:16] LABS: Add Urine Microscopic? YES; Appearance Urine Clear (Clear); Bilirubin Urine Negative (Negative); Blood Urine 3+ (Negative); Color Urine Yellow (Yellow); Glucose Urine UA Negative (Negative); Ketones Urine Negative (Negative); Leukocyte Esterase Ur Negative LEU/UL (Negative); Mucus Urine Rare /lpf; Nitrate Urine Negative (Negative); Protein Urine Negative (Negative); RBC Urine >75 /hpf (0-2); Specific Grav Ur 1.015 (1.001-1.035); Squamous Epithelial Cell Urine Occasional /hpf (Few)
[2020-03-12 14:23] LABS: Alanine Aminotransferase 36 U/L (4-35); Albumin Level 4.4 g/dL (3.5-5.1); Alkaline Phosphatase 73 U/L (38-126); Aspartate Amino Transferase 49 U/L (14-36); Blood Urea Nitrogen 21 mg/dL (7-17); Calcium 11.4 mg/dL (8.4-10.2); Carbon Dioxide 31 mmol/L (22-30); Chloride 103 mmol/L (98-107); Estimated CRCL calculation 50 ml/min; Estimated Glomerular Filt Rate > 60; Glucose 104 mg/dL (65-105); Lipase 177 U/L (23-300); Potassium 3.9 mmol/L (3.4-5.0); Sodium 141 mmol/L (137-145)
--- NOTE | 2020-03-12 15:27 | ED.ABDPAIN ---
HPI - Abdominal Pain General Chief Complaint: Abdominal Pain <Lara Bucio PA-C - Last Filed: 03/12/20 16:45> Stated Complaint: constipated <Lara Bucio PA-C - Last Filed: 03/12/20 16:45> Time Seen by Provider: 03/12/20 13:25 <Lara Bucio PA-C - Last Filed: 03/12/20 16:45> Source: patient <JERED Escobar Last Filed: 03/12/20 16:45> Mode of arrival: ambulatory <JERED Escobar Last Filed: 03/12/20 16:45> Limitations: no limitations <JERED Escobar Last Filed: 03/12/20 16:45> History of Present Illness HPI narrative: This is a 75 year old female that presents to the ER for constipation x 3 days. Reports she has been taking senna with little relief. Reports she has also been having trouble urinating. Reports lower abdominal discomfort. Denies fever, nausea, vomiting, or hematuria. <JERED Escobar Last Filed: 03/12/20 16:45> Related Data Home Medications: Home Medications Medication Instructions Recorded Confirmed Otezla 30 mg PO BID 10/08/19 10/27/19 albuterol sulfate [Ventolin HFA] 2 puff INHALATION PRN PRN 10/08/19 10/27/19 atorvastatin 20 mg PO DAILY 10/08/19 10/27/19 cholecalciferol (vitamin D3) 2,000 unit PO DAILY 10/08/19 10/27/19 citalopram 10 mg PO DAILY 10/08/19 10/27/19 cyanocobalamin (vitamin B-12) 1,000 mcg PO DAILY 10/08/19 10/27/19 fenofibrate 150 mg PO DAILY 10/08/19 10/27/19 furosemide 20 mg PO DAILY 10/08/19 10/27/19 lorazepam 0.5 mg PO PRN PRN 10/08/19 10/27/19 meloxicam 7.5 mg PO DAILY 10/08/19 10/27/19 pantoprazole 40 mg PO QAM 10/08/19 10/27/19 <Lara Bucio PA-C - Last Filed: 03/12/20 16:45> Allergies/Adverse Reactions: Allergies Allergy/AdvReac Type Severity Reaction Status Date / Time No Known Allergies Allergy Unverified 03/12/20 15:42 <Lara Bucio PA-C - Last Filed: 03/12/20 16:45> Review of Systems Review of Systems: Narrative: CONSTITUTIONAL: Denies fever GASTROINTESTINAL: Reports abdominal pain. Denies nausea, vomiting, or diarrhea. GENITOURINARY: Reports dysuria. Denies hematuria. <Lara Bucio PA-C - Last Filed: 03/12/20 16:45> All systems reviewed & are unremarkable except as noted in HPI and below <Lara Bucio PA-C - Last Filed: 03/12/20 16:45> PMFSH Past Medical History Medical History: Medical History (Updated 03/12/20 @ 16:40 by Lara Bucio PA-C) Anxiety Asthma Cancer UTERINE Diabetes Essential hypertension Gastroesophageal reflux disease Hx of malignant neoplasm of uterine body Hypercholesterolemia Localized osteoarthritis of left knee Obstructive sleep apnea (adult) (pediatric) DEJA (obstructive sleep apnea) Psoriasis SOB (shortness of breath) <Lara Bucio PA-C - Last Filed: 03/12/20 16:45> Surgical History Surgical History: Surgical History (Updated 12/01/19 @ 11:49 by Abiodun Santana MD) Aftercare following knee joint replacement surgery History of cholecystectomy Hx of hysterectomy Osteoarthritis of both knees <Lara Bucio PA-C - Last Filed: 03/12/20 16:45> Social History Social History: Social History (Updated 10/27/19 @ 18:41 by Rashad Escobar MD) Smoking status: Never smoker Alcohol intake: never Substance use: never Additional living arrangements comments: in her own home, since 1989 Gender identity (if verbalized by the patient): Female Spiritual care concerns: No Agree to blood products: Yes <Lara Bucio PA-C - Last Filed: 03/12/20 16:45> Exam Narrative: Exam Narrative: GENERAL: Well-appearing, well-nourished, and in no acute distress. HEAD: Normocephalic, atraumatic. EYES: EOMI. CHEST: Clear to auscultation. No respiratory distress. No wheezes rales or rhonchi HEART: Regular rate and rhythm. No murmur heard. Normal peripheral pulses. ABDOMEN: Soft, nondistended, normal active bowel sounds. Mild tenderness to palpation throughout the lower abdome
[2020-03-12] MEDS: MAGNESIUM CITRATE 300 ML BTL PO (15:41)
[2020-03-12 17:33] VITALS: BP 152/97; PULSE 74; RESP 18; O2SAT 98
== END 2020-03-12 17:34 | disposition home or self-care (01) ==
PROVIDERS: Physician Assistant; Emergency Provider Emergency Medicine; PCP Family Medicine
DX: K59.00 Constipation, unspecified (principal); J45.909 Unspecified asthma, uncomplicated; I10 Essential (primary) hypertension; K21.9 Gastro-esophageal reflux disease without esophagitis; E78.00 Pure hypercholesterolemia, unspecified; M17.12 Unilateral primary osteoarthritis, left knee; G47.33 Obstructive sleep apnea (adult) (pediatric); F41.9 Anxiety disorder, unspecified; Z96.653 Presence of artificial knee joint, bilateral; Z85.42 Personal history of malignant neoplasm of other parts of uterus; K74.60 Unspecified cirrhosis of liver
CPT/HCPCS: 36415; 74018; 74177; 80053; 81001; 83690; 85025; 87086; 87088; 99284; A9270; Q9967

== ENCOUNTER 2020-03-24 10:43 | Outpatient (CLI) | payer MEDICARE, SELFPAY ==
[2020-03-24 11:36] LABS: Cholesterol 152 mg/dL (0-200); HDL Direct 44 mg/dL; Triglycerides 178 mg/dL (<150)
[2020-03-24 11:46] LABS: LDL Cholesterol Direct 80 mg/dL
[2020-03-24 12:14] LABS: Hemoglobin A1C 5.3 % (<5.7)
== END 2020-03-24 10:44 | disposition home or self-care (01) ==
LOC: ANHLAB 10:51
PROVIDERS: PCP Family Medicine; Visit Provider Nurse Practitioner Family
DX: E78.2 Mixed hyperlipidemia (principal); E11.22 Type 2 diabetes mellitus with diabetic chronic kidney disease
CPT/HCPCS: 36415; 80061; 83036

== ENCOUNTER 2020-05-18 02:26 | Inpatient (IN) | payer MEDICARE, SELFPAY ==
[2020-05-18] VITALS (9 sets, daily range): BP systolic 101–146; BP diastolic 58–72; PULSE 73–97; RESP 16–21; TEMP 36.3–37.1; O2SAT 95–100; BMI 30.5
--- NOTE | ~2020-05-18 | XR_ITS ---
EXAMINATION: XR retrograde pyelo w/stent LT DATE: 05/18/2020 07:44 INDICATION: Left internal ureteral stent placement TECHNIQUE: Fluoroscopic images from a left internal ureteral stent placement are submitted for review . 82 seconds of fluoroscopy time. 10 fluoroscopic images. FINDINGS: There is a left double-J internal ureteral stent projecting in expected position, with proximal [place] loop at the level of the renal pelvis and distal loop in the pelvis within the bladder lumen. IMPRESSION: 1. Left internal ureteral stent placement. Please refer to real-time procedural findings for detail s. Reviewed, dictated and finalized at location A. IMPRESSION: 1. Left internal ureteral stent placement. Please refer to real-time procedur al findings for details.
--- NOTE | ~2020-05-18 | XR_ITS ---
EXAMINATION: XR stent kub - surgery DATE: 05/18/2020 06:52 INDICATION: Left flank pain. TECHNIQUE: A supine view of the abdomen on 2 radiographs was obtained. COMPARISON: Abdomen radiographs 03/12/2020, CT abdomen and pelvis 03/12/2020 FINDINGS: There are no dilated loops of bowel. There is contrast in the renal collecting system. Ther e is mild left hydronephrosis. There is a 4 mm stone in proximal left ureter. Surgical clips in the r ight upper quadrant are likely from cholecystectomy. IMPRESSION: 1. 4 mm stone in proximal left ureter with mild left hydronephrosis. Reviewed, dictated and finalized at location A.
--- NOTE | 2020-05-18 02:51 | ADMGEN ---
This patient, Leia Jane, was admitted to Medical Room 345-. Patient/family oriented to hospital policies and general routines including ID bracelet, bed and alarms, visiting hours, pain management, procedures, bathroom and other care routines, personal items, smoking policy, room service/diet, and visiting hours. Valuables list has been completed. Information on how to activate the Rapid Response Team has been discussed. Patient/Family are encouraged to report perceived risks to care and to ask questions if they do not understand what they are told or what they should do.
--- NOTE | 2020-05-18 03:34 | PM.IMHP ---
H&P: HPI History of Present Illness Date/Time: 05/18/20 03:34 Chief complaint: left flank pain Narrative: Leia Jane is a 75 year old female with a past medical history hypertension, asthma and bronchitis who presented to [facility] due to left-sided flank pain. At [place] she had a CT scan which per demonstrated perinephric stranding, and proximal 4 mm left-sided ureteral stone with associated hydronephrosis. She also had of temperature of a 100.5? and UA suggestive of infection. She had leukocytosis with a left shift. Dr. Salas from urology was contacted by the outside facility and he accepted the patient in transfer. Patient received Rocephin while at [place]. the patient reports that her abdomen is in the anterior left lower abdomen and on exam the patient did have left CVA tenderness. Review of Systems Review of Systems: Narrative: 12 systems were reviewed with pertinent positives and negatives per HPI. Except as documented in the HPI, all other systems were reviewed and are negative. [facility] Past Medical History Medical History (Updated 05/18/20 @ 08:36 by Suellen Galicia DO) Anxiety Asthma Diabetes Hemoglobin A1c 5.26 February 2020 Diverticulosis Essential hypertension Gastroesophageal reflux disease Hypercholesterolemia DEJA (obstructive sleep apnea) No longer on CPAP after 100 lb weight loss Pancreatitis gallstone Psoriasis Surgical History Surgical History History of cholecystectomy History of colonoscopy with polypectomy History of total left knee replacement (10/2019) Hx of hysterectomy Due to uterine cancer Family History Family History Father Cerebrovascular accident Hypertension Mother Hypertension Diabetes mellitus Acute myocardial infarction Sibling End-stage renal disease on hemodialysis sister COPD (chronic obstructive pulmonary disease) brother and sister Acute myocardial infarction 2 brothers Renal cancer sister Social History Social History Social History: She has 2 sons. Code status: Full code Surrogate decision maker: Oldest son Smoking status: Never smoker Alcohol intake: never Substance use: never Additional living arrangements comments: She lives in her own home. She has been since 1989 Gender identity (if verbalized by the patient): Female Spiritual care concerns: No Agree to blood products: Yes Meds Home Medications and Allergies Home Medications Medication Instructions Recorded Confirmed Type Otezla 30 mg PO BID 10/08/19 05/18/20 History albuterol sulfate [Ventolin HFA] 2 puff INHALATION PRN PRN 10/08/19 05/18/20 History citalopram 10 mg PO DAILY 10/08/19 05/18/20 History cyanocobalamin (vitamin B-12) 1,000 mcg PO DAILY 10/08/19 05/18/20 History furosemide 20 mg PO DAILY 10/08/19 05/18/20 History lorazepam 0.5 mg PO BID PRN 10/08/19 05/18/20 History pantoprazole 40 mg PO QAM 10/08/19 05/18/20 History fenofibrate 160 mg PO DAILY 05/18/20 05/18/20 History meloxicam 15 mg PO DAILY 05/18/20 05/18/20 History mometasone 1 applic TOPICAL DAILY 05/18/20 05/18/20 History Allergies Allergy/AdvReac Type Severity Reaction Status Date / Time No Known Allergies Allergy Unverified 05/18/20 07:42 Vital Signs Vital Signs - 24 hr 05/18/20 02:37 Temperature 98.1 F Pulse Rate 80 Respiratory Rate 16 Blood Pressure 141/72 H Pulse Oximetry 98 Exam Narrative: Exam Narrative: PHYSICAL EXAM: WEIGHT 73.4 kg BMI 30.6 General: HEENT: Respiratory: Cardiovascular: Gastrointestinal: Skin: Musculoskeletal: Neurological: Psychiatric: : Hematologic/lymphatic: H&P: Results Labs Labs: labs from outside facility: CBC: WBC 13,600 hemoglobin 13 hematocr
[2020-05-18] MEDS: DEXTROSE 5%/0.9% SOD CHL 1,000 ML 100 ML IV CONT ×2 (04:08→17:46)
[2020-05-18 04:20] LABS: Add Urine Microscopic? YES; Appearance Urine Clear (Clear); Bilirubin Urine Negative (Negative); Blood Urine 2+ (Negative); Color Urine Yellow (Yellow); Glucose Urine UA Negative (Negative); Ketones Urine Negative (Negative); Leukocyte Esterase Ur Trace LEU/UL (Negative); Mucus Urine Rare /lpf; Nitrate Urine Negative (Negative); Protein Urine Negative (Negative); RBC Urine 21-50 /hpf (0-2); Squamous Epithelial Cell Urine Few /hpf (Few); WBC Urine 16-20 /hpf
[2020-05-18 04:22] LABS: Specific Grav Ur 1.047 (1.001-1.035)
[2020-05-18 05:06] LABS: Basophils Percent Auto 0.1 % (0.2-1.2); Eosinophils Percent Auto 0.2 % (0-4.4); Hematocrit 33.6 % (37.0-47.0); Hemoglobin 11.3 g/dL (12.0-15.0); Immature Granulocyte Absolute 0.03 K/mm3 (0.00-0.031); Immature Granulocyte Percent A 0.3 % (0-0.5); Lymphocytes Absolute Auto 1.04 K/mm3 (0.9-3.2); Lymphocytes Percent Auto 10.4 % (18.3-44.2); Mean Corpuscular HGB Conc 33.6 g/dl (32-36); Mean Corpuscular Hemoglobin 30.9 pg (26-34); Mean Corpuscular Volume 91.8 fl (80-100); Mean Platelet Volume 11.4 fl (7.4-10.4); Monocytes Absolute Auto 0.7 K/mm3 (0.1-0.6); Monocytes Percent Auto 6.8 % (2.6-8.5); Neutrophils Absolute Auto 8.2 K/mm3 (1.3-6.7); Neutrophils Percent Auto 82.2 % (45.5-73.1); Platelet Count Result 156 k/mm3 (150-375); Red Blood Count 3.66 M/mm3 (4.2-5.4); Red Cell Distribution Width 12.6 % (11.5-14.5)
[2020-05-18 05:20] LABS: Alanine Aminotransferase 34 U/L (4-35); Albumin Level 3.5 g/dL (3.5-5.1); Alkaline Phosphatase 62 U/L (38-126); Anion Gap 7 mmol/L (8-16); Aspartate Amino Transferase 42 U/L (14-36); Bilirubin,Total 1.6 mg/dL (0.2-1.3); Blood Urea Nitrogen 17 mg/dL (7-17); Calcium 10.1 mg/dL (8.4-10.2); Carbon Dioxide 28 mmol/L (22-30); Chloride 103 mmol/L (98-107); Estimated CRCL calculation 37 ml/min; Estimated Glomerular Filt Rate 49; Glucose 125 mg/dL (65-105); Potassium 3.4 mmol/L (3.4-5.0); Sodium 138 mmol/L (137-145)
--- NOTE | 2020-05-18 07:11 | WPDURCON ---
Assessment and Plan Assessment and plan (1) UTI (urinary tract infection): Code(s): N39.0 - Urinary tract infection, site not specified Status: Acute (2) Hydronephrosis due to obstruction of ureter: Code(s): N13.2 - Hydronephrosis with renal and ureteral calculous obstruction Status: Acute Assessment and Plan: Left ureteral stone, UTI - risks, benefits and alternatives discussed - pt to proceed with left ureteral stent insertion today - understands need for future definitive stone management as an outpatient - continue IV antibiotics Urology Consult Note HPI Date Seen: 05/18/20 Requesting Physician: Suellen Galicia DO Primary Care Provider: Khang Greer MD Consult Narrative Narrative: Leia Jane is a 75 year old female with left flank pain - found to have left ureteral stone at [facility] Review of Systems Constitutional: Constitutional: Reports no additional constitutional complaints Eyes: Eyes: Reports no additional eye complaints ENT: Reports system reviewed and no additional complaints, except as documented Cardiovascular: Cardiovascular: Reports no additional cardiovascular complaints Respiratory: Respiratory: Reports no additional respiratory complaints Gastrointestinal: Gastrointestinal: Reports no additional gastrointestinal complaints Integumentary/Breasts: Skin/Breast: Reports system reviewed and no additional complaints, except as docu Neurologic: Reports system reviewed and no additional complaints, except as documented [facility] Past Medical History Medical History (Updated 05/18/20 @ 03:51 by Suellen Galicia DO) Anxiety Asthma Diabetes Hemoglobin A1c 5.26 February 2020 Diverticulosis Essential hypertension Gastroesophageal reflux disease Hypercholesterolemia DEJA (obstructive sleep apnea) Pancreatitis gallstone Psoriasis Surgical History Surgical History (Updated 05/18/20 @ 03:41 by Suellen Galicia DO) History of cholecystectomy History of colonoscopy with polypectomy History of total left knee replacement (10/2019) Hx of hysterectomy Due to uterine cancer Family History Family History (Updated 05/18/20 @ 03:45 by Suellen Galicia DO) Father Cerebrovascular accident Hypertension Mother Hypertension Diabetes mellitus Acute myocardial infarction Sibling End-stage renal disease on hemodialysis sister COPD (chronic obstructive pulmonary disease) brother and sister Acute myocardial infarction 2 brothers Renal cancer sister Social History Social History (Updated 05/18/20 @ 03:47 by Suellen Galicia DO) Social History: She has 2 sons. Code status: Full code Surrogate decision maker: Oldest son Smoking status: Never smoker Alcohol intake: never Substance use: never Additional living arrangements comments: She lives in her own home. She has been since 1989 Gender identity (if verbalized by the patient): Female Spiritual care concerns: No Agree to blood products: Yes Meds Home Medications and Allergies Home Medications Medication Instructions Recorded Confirmed Type Otezla 30 mg PO BID 10/08/19 05/18/20 History albuterol sulfate [Ventolin HFA] 2 puff INHALATION PRN PRN 10/08/19 05/18/20 History citalopram 10 mg PO DAILY 10/08/19 05/18/20 History cyanocobalamin (vitamin B-12) 1,000 mcg PO DAILY 10/08/19 05/18/20 History furosemide 20 mg PO DAILY 10/08/19 05/18/20 History lorazepam 0.5 mg PO BID PRN 10/08/19 05/18/20 History pantoprazole 40 mg PO QAM 10/08/19 05/18/20 History fenofibrate 160 mg PO DAILY 05/18/20 05/18/20 History meloxicam 15 mg PO DAILY 05/18/20 05/18/20 History mometasone 1 applic TOPICAL DAILY 05/18/20 05/18/20 History Allergies Allergy/AdvReac Type Severity Reaction Status Date / Time No Known Allergies Allergy Unverified 03/12/20 15:42 Vital Signs Vital Signs - 24 hr 05/18/20 02:37 04/27
[2020-05-18] MEDS: ACETAMINOPHEN 500 MG TABLET 1000 MG PO (07:13)
--- NOTE | 2020-05-18 07:13 | WPDANESEPPF ---
Anes - Initial Pre Proc Eval Procedure: Operation Date: 05/18/20 07:30 Proposed Procedures p Cystoscopy, Left Stent Placement - Chaz Salas MD Date/Time: 05/18/20 07:13 Surgeon: Suellen Galicia DO Pre Op Diagnosis: left flank pain Patient Data Age: 75 Gender: F Height: 5 ft 1 in Weight: 73.4 kg Last Vital Signs Temp 36.6 C 05/18/20 04:16 Pulse 85 05/18/20 04:16 Resp 16 05/18/20 04:16 BP 126/65 05/18/20 04:16 Pulse Ox 95 05/18/20 04:16 Allergies Allergy/AdvReac Type Severity Reaction Status Date / Time No Known Allergies Allergy Unverified 03/12/20 15:42 Home Medications Medication Instructions Recorded Confirmed Type Otezla 30 mg PO BID 10/08/19 05/18/20 History albuterol sulfate [Ventolin HFA] 2 puff INHALATION PRN PRN 10/08/19 05/18/20 History citalopram 10 mg PO DAILY 10/08/19 05/18/20 History cyanocobalamin (vitamin B-12) 1,000 mcg PO DAILY 10/08/19 05/18/20 History furosemide 20 mg PO DAILY 10/08/19 05/18/20 History lorazepam 0.5 mg PO BID PRN 10/08/19 05/18/20 History pantoprazole 40 mg PO QAM 10/08/19 05/18/20 History fenofibrate 160 mg PO DAILY 05/18/20 05/18/20 History meloxicam 15 mg PO DAILY 05/18/20 05/18/20 History mometasone 1 applic TOPICAL DAILY 05/18/20 05/18/20 History Laboratory Tests 05/18/20 05/18/20 05/18/20 04:08 04:56 04:56 WBC 10.0 K/mm3 K/mm3 (4.5-10.0) RBC 3.66 M/mm3 L M/mm3 (4.2-5.4) Hgb 11.3 g/dL L g/dL (12.0-15.0) Hct 33.6 % L % (37.0-47.0) MCV 91.8 fl fl (80-100) MCH 30.9 pg pg (26-34) MCHC 33.6 g/dl g/dl (32-36) RDW 12.6 % % (11.5-14.5) Plt Count 156 k/mm3 k/mm3 (150-375) MPV 11.4 fl H fl (7.4-10.4) Immature Gran % (Auto) 0.3 % % (0-0.5) Neut % (Auto) 82.2 % H % (45.5-73.1) Lymph % (Auto) 10.4 % L % (18.3-44.2) [place] % (Auto) 6.8 % % (2.6-8.5) Eos % (Auto) 0.2 % % (0-4.4) Baso % (Auto) 0.1 % L % (0.2-1.2) Lymph # (Auto) 1.04 K/mm3 K/mm3 (0.9-3.2) [place] # (Auto) 0.7 K/mm3 H K/mm3 (0.1-0.6) Eos # (Auto) 0.0 K/mm3 K/mm3 (0-0.3) Baso # (Auto) 0.0 K/mm3 K/mm3 (0.0-0.1) Abs Immat Gran (auto) 0.03 K/mm3 K/mm3 (0.00-0.031) Absolute Neuts (auto) 8.2 K/mm3 H K/mm3 (1.3-6.7) Absolute Nucleated RBC 0.0 K/mm3 K/mm3 (0.0-0.012) Nucleated RBC % 0.0 % % (0.0-0.2) Sodium 138 mmol/L mmol/L (137-145) Potassium 3.4 mmol/L mmol/L (3.4-5.0) Chloride 103 mmol/L mmol/L (98-107) Carbon Dioxide 28 mmol/L mmol/L (22-30) Anion Gap 7 mmol/L L mmol/L (8-16) BUN 17 mg/dL mg/dL (7-17) Creatinine 1.10 mg/dL H mg/dL (0.7-1.0) Estim Creat Clear Calc 37 ml/min ml/min Estimated GFR 49 L (59 - ) Glucose 125 mg/dL H mg/dL (65-105) Calcium 10.1 mg/dL mg/dL (8.4-10.2) Total Bilirubin 1.6 mg/dL H mg/dL (0.2-1.3) AST 42 U/L H U/L (14-36) ALT 34 U/L U/L (4-35) Alkaline Phosphatase 62 U/L U/L (38-126) Total Protein 6.0 g/dL L g/dL (6.3-8.2) Albumin 3.5 g/dL g/dL (3.5-5.1) Urine Color Yellow (Yellow) Urine Appearance Clear (Clear) Urine pH 6.0 (5.0-9.0) Ur Specific Olga 1.047 H (1.001-1.035) Urine Protein Negative mg/dL mg/dL (Negative) Urine Glucose (UA) Negative mg/dL mg/dL (Negative) Urine Ketones Negative mg/dL mg/dL (Negative) Ur Blood (Man) 2+ H (Negative) Urine Nitrate Negative (Negative) Urine Bilirubin Negative (Negative) Urine Urobilinogen 4.0 mg/dL H mg/dL (<2.0) Leukocyte Esterase Rfl Trace SWATHI/UL H SWATHI/UL (Negative) Urine RBC 21-50 /hpf H
[2020-05-18] MEDS: LACTATED RINGERS 1,000 ML 30 ML IV CONT (07:14)
--- NOTE | 2020-05-18 07:14 | WPDHPUPDATE1 ---
History and Physical Update Update Date/Time: 05/18/20 07:14 History and Physical has been reviewed, including an updated exam of the patient. There are NO changes in the patient's condition. Risks, benefits, and alternatives have been discussed and questions answered. Patient agrees to proceed with procedure.
[2020-05-18] MEDS: ceFAZolin 2 GM/D5W 50 ML 2 GM/50 ML BAG IVPB (07:21)
[2020-05-18 07:34] LABS: Glucose Point of Care 110 (65-105)
[2020-05-18] MEDS: LIDOCAINE HCL 2% GEL UROJET 10 ML PKG MUCOUS MEM (07:38)
--- NOTE | 2020-05-18 07:47 | PM.PROC ---
Procedure Note - Detailed Date of procedure: 05/18/20 Pre-op diagnosis: left flank pain Post-op diagnosis: same Procedure performed: cysto, left RPG, left ureteral stent insertion Description of procedure: Informed consent was obtained. Patient was taken the operating room. She was given preoperative IV antibiotics. She was placed into the Dorsal lithotomy position. She has prepped draped in usual fashion. A 22 F rigid cystoscope was inserted through the urethra into the bladder. We inspected the bladder and there were no mucosal abnormalities. The patient had bilateral orthotopic ureteral orifices. The patient had a consumer product advisor film that identified a hydronephrotic left kidney down to a proximal ureteral stone. We then cannulated the left ureter we advanced the wire up to the level of stone - the stone was impacted. We therefore performed a retrograde pyelogram and were able to get some contrast past the level of the stone, and therefore used a angled Glidewire in order to bypass the stone and advance into the renal pelvis. We then exchanged to a Ferrer wire and over the wire placed a 6 F variable length stent with a curl in the renal pelvis and curl in bladder. Bladder was then emptied patient was awakened taken care with ambulation. Anesthesia: MAC Surgeon: Chaz Salas MD Complications: No immediate complications Condition: stable Disposition: PACU
[2020-05-18 08:05] LABS: Glucose Point of Care 115 (65-105)
--- NOTE | 2020-05-18 08:38 | SUR.PHASEI ---
0815; PT PUT DENTURES IN MOUTH
[2020-05-18] MEDS: CYANOCOBALAMIN 1,000 MCG TABLET 1000 MCG PO (10:34)
[2020-05-18] MEDS: CITALOPRAM HYDROBROMIDE 10 MG TABLET PO (10:34)
[2020-05-18] MEDS: FUROSEMIDE 20 MG TABLET PO (10:34)
[2020-05-18] MEDS: PANTOPRAZOLE 40 MG TABLET PO (10:34)
[2020-05-18] MEDS: POTASSIUM CHLORIDE 20 MEQ TABLET 40 MEQ PO (10:34)
[2020-05-18] MEDS: FENOFIBRATE 160 MG TABLET PO (10:34)
--- NOTE | 2020-05-18 14:47 | PM.IMPN ---
Progress Note: A&P Assessment and Plan (1) UTI (urinary tract infection): Qualifiers: Urinary tract infection type: acute pyelonephritis Qualified Code(s): N10 - Acute pyelonephritis Code(s): N39.0 - Urinary tract infection, site not specified Status: Acute Assessment and Plan: 05/18/20 14:47 patient is 75-year-old female initially presented at [facility] with left flank pain and CT scan done showed patient had left ureteral 4 mm kidney stone urologist was consulted and and patient was brought to the hospital for further evaluation, patient was seen by urology and taken the patient to OR had a cystoscopy however the stone was imbedded and was not able to be extracted catheter was placed to drain the kidney, patient also has symptoms of UTI patient is started on Rocephin and will follow-up on urine culture and sensitivity, the patient is sitting in the chair eating her breakfast, pain is better, denies any nausea or vomiting fever or chills. (2) Sepsis: Qualifiers: Hepatic coma status: without hepatic coma Sepsis acute organ dysfunction status: with acute organ dysfunction Sepsis type: sepsis due to unspecified organism Severe sepsis acute organ dysfunction type: acute liver failure Severe sepsis shock status: without septic shock Qualified Code(s): A41.9 - Sepsis, unspecified organism; R65.20 - Severe sepsis without septic shock; K72.00 - Acute and subacute hepatic failure without coma Code(s): A41.9 - Sepsis, unspecified organism Status: Acute Assessment and Plan: patient does not meet the criteria for sepsis, there is no fever, there is no lactic acid to, there is no leukocytosis, patient is not tachypneic or tachycardic upon arrival she does have a UTI (3) Hydronephrosis due to obstruction of ureter: Code(s): N13.2 - Hydronephrosis with renal and ureteral calculous obstruction Status: Acute Assessment and Plan: patient was seen by urologist had a cystoscopy plan is above (4) Ureterolithiasis: Code(s): N20.1 - Calculus of ureter Status: Acute Assessment and Plan: patient seen by Urology had cystoscopy and the plan is above Subjective Date/time seen: 05/18/20 14:47 patient is 75-year-old female initially presented at [facility] with left flank pain and CT scan done showed patient had left ureteral 4 mm kidney stone urologist was consulted and and patient was brought to the hospital for further evaluation, patient was seen by urology and taken the patient to OR had a cystoscopy however the stone was imbedded and was not able to be extracted catheter was placed to drain the kidney, patient also has symptoms of UTI patient is started on Rocephin and will follow-up on urine culture and sensitivity, the patient is sitting in the chair eating her breakfast, pain is better, denies any nausea or vomiting fever or chills. Review of Systems Review of Systems: All systems reviewed & are unremarkable except as noted in HPI and below Exam Const: General: comfortable and no acute distress HENMT: General nose exam: Normal nares present Eyes: Sclera: sclerae normal Neck: Neck: supple Resp: Effort & Inspection: normal respiratory effort Auscultation: clear to auscultation bilaterally Cardio: Rate: regular rate Rhythm: regular rhythm GI: Auscultation: normal bowel sounds Skin: General skin exam: normal color Neuro: Speech: normal speech Sensory Exam: normal sensation Extrem: General: normal to inspection Psych: Affect: Anxious affect present Objective Data Vital Signs Vital Signs: Vital Signs - 24 hr 05/18/20 02:37 05/18/20 04:16 05/18/20 07:00 Temperature 98.1 F 98 F 98.2 F Pulse Rate 80 85 84 Respiratory Rate 16 16 18 Blood Pressure 141/72 H 126/65 136/62 Pulse Oximetry 98 95 98 05/18/20 07:52 05/18/20 08:05 05/18/20 08:19 Temperature 97.4 F L Pulse Rate 97 80 78 Re
[2020-05-18 18:00] LABS: Glucose Point of Care 132 (65-105)
[2020-05-18] MEDS: DOCUSATE SODIUM 100 MG CAPSULE PO (20:38)
[2020-05-18 23:35] LABS: Glucose Point of Care 123 (65-105)
[2020-05-19] VITALS (7 sets, daily range): BP systolic 131–160; BP diastolic 64–89; PULSE 68–79; RESP 16–18; TEMP 35.9–36.8; O2SAT 98–100
[2020-05-19] MEDS: HYDROcodone/acetaminophen (*CRX) 5-325 MG TABLET 1 TAB PO (05:15)
[2020-05-19 05:58] LABS: Anion Gap 3 mmol/L (8-16); Blood Urea Nitrogen 18 mg/dL (7-17); Calcium 10.3 mg/dL (8.4-10.2); Carbon Dioxide 30 mmol/L (22-30); Chloride 107 mmol/L (98-107); Estimated CRCL calculation 40 ml/min; Estimated Glomerular Filt Rate 54; Glucose 115 mg/dL (65-105); Potassium 3.9 mmol/L (3.4-5.0); Sodium 140 mmol/L (137-145)
[2020-05-19] MEDS: DEXTROSE 5%/0.9% SOD CHL 1,000 ML 100 ML IV CONT ×2 (06:12→15:39)
--- NOTE | 2020-05-19 07:25 | WPDANESPN ---
Anes - Prog Note Post-Op Date/Time: 05/19/20 07:25 Cardiovascular status: normal Respiratory status: normal Airway patency: baseline Mental status: baseline Post-Op hydration status: normal Vital Signs: Last Vital Signs Temp 36.8 C 05/19/20 04:00 Pulse 68 05/19/20 04:00 Resp 16 05/19/20 04:00 BP 142/75 H 05/19/20 04:00 Pulse Ox 98 05/19/20 04:00 Pain Score (VAS): 0 I/O: Intake & Output 05/18/20 05/18/20 05/19/20 15:59 23:59 07:59 Intake Total 7412 132 6022 Output Total 50 250 375 Balance 1580 120 825 Laboratory Tests 05/18/20 04:56 05/19/20 05:21 05/18/20 05/18/20 05/18/20 07:11 08:02 17:48 Sodium Potassium Chloride Carbon Dioxide Anion Gap BUN Creatinine Estim Creat Clear Calc Estimated GFR Glucose POC Capillary Glucose 110 115 H 132 H Calcium 05/18/20 05/19/20 20:51 05:21 Sodium 140 Potassium 3.9 Chloride 107 Carbon Dioxide 30 Anion Gap 3 L BUN 18 H Creatinine 1.00 Estim Creat Clear Calc 40 Estimated GFR 54 L Glucose 115 H POC Capillary Glucose 123 H Calcium 10.3 H Post-procedural complaints: none Patient Feedback: Patient satisfied with anesthetic care.
[2020-05-19] MEDS: PANTOPRAZOLE 40 MG TABLET PO (09:08)
[2020-05-19] MEDS: FENOFIBRATE 160 MG TABLET PO (09:08)
[2020-05-19] MEDS: FUROSEMIDE 20 MG TABLET PO (09:08)
[2020-05-19] MEDS: CITALOPRAM HYDROBROMIDE 10 MG TABLET PO (09:08)
[2020-05-19] MEDS: DOCUSATE SODIUM 100 MG CAPSULE PO ×2 (09:08→20:52)
[2020-05-19] MEDS: CYANOCOBALAMIN 1,000 MCG TABLET 1000 MCG PO (09:08)
[2020-05-19] MEDS: polyethylene glycoL 3350 17 GM POWD.PACK PO (09:09)
[2020-05-19] MEDS: BISACODYL 10 MG SUPPOSITORY RECTAL (14:54)
--- NOTE | 2020-05-19 15:19 | PM.IMPN ---
Progress Note: A&P Assessment and Plan (1) UTI (urinary tract infection): Qualifiers: Urinary tract infection type: acute pyelonephritis Qualified Code(s): N10 - Acute pyelonephritis Code(s): N39.0 - Urinary tract infection, site not specified Status: Acute Assessment and Plan: 05/19/20 15:19 patient is 75-year-old female initially presented at [facility] with left flank pain and CT scan done showed patient had left ureteral 4 mm kidney stone urologist was consulted and and patient was brought to the hospital for further evaluation, patient was seen by urology and taken the patient to OR had a cystoscopy however the stone was imbedded and was not able to be extracted catheter was placed to drain the kidney, patient also has symptoms of UTI patient was started on Rocephin and will follow-up on urine culture and sensitivity, today 05/19 the patient is sitting in the chair is states feeling much better denies any abdominal pain nausea or vomiting fever or chills, does complain of constipation has not had a BM in few days, passing gas, will get the patient Colace and MiraLax and monitor, will follow-up on urine culture and sensitivity and further recommendation to follow, will be seen urology service too. (2) Sepsis: Qualifiers: Sepsis type: sepsis due to unspecified organism Sepsis acute organ dysfunction status: with acute organ dysfunction Severe sepsis acute organ dysfunction type: acute liver failure Hepatic coma status: without hepatic coma Severe sepsis shock status: without septic shock Qualified Code(s): A41.9 - Sepsis, unspecified organism; R65.20 - Severe sepsis without septic shock; K72.00 - Acute and subacute hepatic failure without coma Code(s): A41.9 - Sepsis, unspecified organism Status: Acute Assessment and Plan: patient does not meet the criteria for sepsis, there is no fever, there is no lactic acid to, there is no leukocytosis, patient is not tachypneic or tachycardic upon arrival she does have a UTI, culture still pending. (3) Hydronephrosis due to obstruction of ureter: Code(s): N13.2 - Hydronephrosis with renal and ureteral calculous obstruction Status: Acute Assessment and Plan: patient was seen by urologist had a cystoscopy plan is above (4) Ureterolithiasis: Code(s): N20.1 - Calculus of ureter Status: Acute Assessment and Plan: patient seen by Urology had cystoscopy and the plan is above Subjective Date/time seen: 05/19/20 15:19 patient is 75-year-old female initially presented at [facility] with left flank pain and CT scan done showed patient had left ureteral 4 mm kidney stone urologist was consulted and and patient was brought to the hospital for further evaluation, patient was seen by urology and taken the patient to OR had a cystoscopy however the stone was imbedded and was not able to be extracted catheter was placed to drain the kidney, patient also has symptoms of UTI patient was started on Rocephin and will follow-up on urine culture and sensitivity, today 05/19 the patient is sitting in the chair is states feeling much better denies any abdominal pain nausea or vomiting fever or chills, does complain of constipation has not had a BM in few days, passing gas, will get the patient Colace and MiraLax and monitor, will follow-up on urine culture and sensitivity and further recommendation to follow, will be seen urology service too. Review of Systems Review of Systems: All systems reviewed & are unremarkable except as noted in HPI and below Exam Const: General: comfortable and no acute distress HENMT: General nose exam: Normal nares present Eyes: Sclera: sclerae normal Neck: Neck: supple Resp: Effort & Inspection: normal respiratory effort Auscultation: clear to auscultation bilaterally Cardio: Rate: regular rate Rhythm: regular rhythm GI: Auscultation: norm
[2020-05-19] MEDS: ACETAMINOPHEN 325 MG TABLET 650 MG PO (20:56)
[2020-05-20] MEDS: DEXTROSE 5%/0.9% SOD CHL 1,000 ML 100 ML IV CONT ×3 (02:09→20:36)
[2020-05-20 04:54] VITALS: BP 159/78; PULSE 68; RESP 17; TEMP 36.5; O2SAT 97
[2020-05-20 05:58] LABS: Anion Gap 4 mmol/L (8-16); Blood Urea Nitrogen 15 mg/dL (7-17); Carbon Dioxide 28 mmol/L (22-30); Chloride 107 mmol/L (98-107); Estimated CRCL calculation 49 ml/min; Estimated Glomerular Filt Rate > 60; Glucose 103 mg/dL (65-105); Potassium 3.8 mmol/L (3.4-5.0); Sodium 139 mmol/L (137-145)
[2020-05-20] MEDS: FENOFIBRATE 160 MG TABLET PO (08:12)
[2020-05-20] MEDS: FUROSEMIDE 20 MG TABLET PO (08:12)
[2020-05-20] MEDS: DOCUSATE SODIUM 100 MG CAPSULE PO ×2 (08:12→20:36)
[2020-05-20] MEDS: polyethylene glycoL 3350 17 GM POWD.PACK PO (08:12)
[2020-05-20] MEDS: PANTOPRAZOLE 40 MG TABLET PO (08:12)
[2020-05-20] MEDS: CYANOCOBALAMIN 1,000 MCG TABLET 1000 MCG PO (08:12)
[2020-05-20] MEDS: CITALOPRAM HYDROBROMIDE 10 MG TABLET PO (08:12)
--- NOTE | 2020-05-20 13:59 | PM.IMPN ---
Progress Note: A&P Assessment and Plan (1) UTI (urinary tract infection): Qualifiers: Urinary tract infection type: acute pyelonephritis Qualified Code(s): N10 - Acute pyelonephritis Code(s): N39.0 - Urinary tract infection, site not specified Status: Acute Assessment and Plan: 05/20/20 13:59 patient is 75-year-old female initially presented at [facility] with left flank pain and CT scan done showed patient had left ureteral 4 mm kidney stone urologist was consulted and and patient was brought to the hospital for further evaluation, patient was seen by urology and taken the patient to OR had a cystoscopy however the stone was imbedded and was not able to be extracted catheter was placed to drain the kidney, patient also has symptoms of UTI patient was started on Rocephin and will follow-up on urine culture and sensitivity, today 05/20 the patient is sitting in the chair is states feeling much better denies any abdominal pain nausea or vomiting fever or chills, on 05/18 complained of constipation has not had a BM in few days, was passing gas, gave the patient Colace and MiraLax and today patient did hve BM , will follow-up on urine culture and sensitivity for far no growth, however patient first was seen [facility] was treated with Rocephin, will request urine culture results, will be seen urology service too. (2) Sepsis: Qualifiers: Sepsis type: sepsis due to unspecified organism Sepsis acute organ dysfunction status: with acute organ dysfunction Severe sepsis acute organ dysfunction type: acute liver failure Hepatic coma status: without hepatic coma Severe sepsis shock status: without septic shock Qualified Code(s): A41.9 - Sepsis, unspecified organism; R65.20 - Severe sepsis without septic shock; K72.00 - Acute and subacute hepatic failure without coma Code(s): A41.9 - Sepsis, unspecified organism Status: Acute Assessment and Plan: patient does not meet the criteria for sepsis, there is no fever, there is no lactic acid to, there is no leukocytosis, patient is not tachypneic or tachycardic upon arrival she does have a UTI, culture still pending. (3) Hydronephrosis due to obstruction of ureter: Code(s): N13.2 - Hydronephrosis with renal and ureteral calculous obstruction Status: Acute Assessment and Plan: patient was seen by urologist had a cystoscopy plan is above (4) Ureterolithiasis: Code(s): N20.1 - Calculus of ureter Status: Acute Assessment and Plan: patient seen by Urology had cystoscopy and the plan is above Subjective Date/time seen: 05/20/20 13:59 patient is 75-year-old female initially presented at [facility] with left flank pain and CT scan done showed patient had left ureteral 4 mm kidney stone urologist was consulted and and patient was brought to the hospital for further evaluation, patient was seen by urology and taken the patient to OR had a cystoscopy however the stone was imbedded and was not able to be extracted catheter was placed to drain the kidney, patient also has symptoms of UTI patient was started on Rocephin and will follow-up on urine culture and sensitivity, today 05/20 the patient is sitting in the chair is states feeling much better denies any abdominal pain nausea or vomiting fever or chills, on 05/18 complained of constipation has not had a BM in few days, was passing gas, gave the patient Colace and MiraLax and today patient did hve BM , will follow-up on urine culture and sensitivity for far no growth, however patient first was seen [facility] was treated with Rocephin, will request urine culture results, will be seen urology service too. Review of Systems Review of Systems: All systems reviewed & are unremarkable except as noted in HPI and below Exam Const: General: comfortable and no acute distress HENMT: General nose exam: Normal na
[2020-05-20 15:15] VITALS: BP 151/81; PULSE 70; RESP 18; TEMP 36.2; O2SAT 100
[2020-05-21] VITALS: BP 150/76; PULSE 73; RESP 14; TEMP 36.7; O2SAT 99
[2020-05-21] MEDS: ACETAMINOPHEN 325 MG TABLET 650 MG PO (01:27)
[2020-05-21 05:10] VITALS: BP 143/73; PULSE 62; RESP 16; TEMP 36.4; O2SAT 98
[2020-05-21 06:04] LABS: Anion Gap 7 mmol/L (8-16); Blood Urea Nitrogen 16 mg/dL (7-17); Calcium 10.1 mg/dL (8.4-10.2); Carbon Dioxide 32 mmol/L (22-30); Chloride 103 mmol/L (98-107); Estimated CRCL calculation 49 ml/min; Estimated Glomerular Filt Rate > 60; Glucose 104 mg/dL (65-105); Potassium 3.6 mmol/L (3.4-5.0); Sodium 142 mmol/L (137-145)
[2020-05-21] MEDS: DEXTROSE 5%/0.9% SOD CHL 1,000 ML 100 ML IV CONT (06:53)
[2020-05-21] MEDS: FUROSEMIDE 20 MG TABLET PO (08:57)
[2020-05-21] MEDS: CYANOCOBALAMIN 1,000 MCG TABLET 1000 MCG PO (08:57)
[2020-05-21] MEDS: FENOFIBRATE 160 MG TABLET PO (08:57)
[2020-05-21] MEDS: CITALOPRAM HYDROBROMIDE 10 MG TABLET PO (08:57)
[2020-05-21] MEDS: POTASSIUM CHLORIDE 20 MEQ TABLET 40 MEQ PO (08:58)
[2020-05-21] MEDS: PANTOPRAZOLE 40 MG TABLET PO (08:59)
--- NOTE | 2020-05-21 10:19 | PM.DS ---
DS: Admitting Diagnosis Admitting Diagnosis Admitting Diagnosis: left flank pain DS: Discharge Diagnosis Discharge Diagnosis (1) UTI (urinary tract infection): Qualifiers: Urinary tract infection type: acute pyelonephritis Qualified Code(s): N10 - Acute pyelonephritis Code(s): N39.0 - Urinary tract infection, site not specified Status: Acute Assessment and Plan: 05/20/20 13:59 Chief complaint: left flank pain Narrative: Leia Jane is a 75 year old female with a past medical history hypertension, asthma and bronchitis who presented to [facility] due to left-sided flank pain. At [place] she had a CT scan which per demonstrated perinephric stranding, and proximal 4 mm left-sided ureteral stone with associated hydronephrosis. She also had of temperature of a 100.5? and UA suggestive of infection. She had leukocytosis with a left shift. Dr. Salas from urology was contacted by the outside facility and he accepted the patient in transfer. Patient received Rocephin while at [place]. the patient reports that her abdomen is in the anterior left lower abdomen and on exam the patient did have left CVA tenderness. (2) Sepsis: Qualifiers: Sepsis type: sepsis due to unspecified organism Sepsis acute organ dysfunction status: with acute organ dysfunction Severe sepsis acute organ dysfunction type: acute liver failure Hepatic coma status: without hepatic coma Severe sepsis shock status: without septic shock Qualified Code(s): A41.9 - Sepsis, unspecified organism; R65.20 - Severe sepsis without septic shock; K72.00 - Acute and subacute hepatic failure without coma Code(s): A41.9 - Sepsis, unspecified organism Status: Acute Assessment and Plan: patient does not meet the criteria for sepsis, there is no fever, there is no lactic acid to, there is no leukocytosis, patient is not tachypneic or tachycardic upon arrival she does have a UTI, culture still pending. (3) Hydronephrosis due to obstruction of ureter: Code(s): N13.2 - Hydronephrosis with renal and ureteral calculous obstruction Status: Acute Assessment and Plan: patient was seen by urologist had a cystoscopy plan is above (4) Ureterolithiasis: Code(s): N20.1 - Calculus of ureter Status: Acute Assessment and Plan: patient seen by Urology had cystoscopy and the plan is above DS: Summary Hospital Course Reason for hospitalization: Chief complaint: left flank pain Narrative: Leia Jane is a 75 year old female with a past medical history hypertension, asthma and bronchitis who presented to [facility] due to left-sided flank pain. At [place] she had a CT scan which per demonstrated perinephric stranding, and proximal 4 mm left-sided ureteral stone with associated hydronephrosis. She also had of temperature of a 100.5? and UA suggestive of infection. She had leukocytosis with a left shift. Dr. Salas from urology was contacted by the outside facility and he accepted the patient in transfer. Patient received Rocephin while at [place]. the patient reports that her abdomen is in the anterior left lower abdomen and on exam the patient did have left CVA tenderness. Hospital Course: Patient was initially seen at [facility] with kidney stone and UTI was give 1 dose of Rocephin and transferred to the hospital for urologist consult, urine culture done at [place] did not show any bacterial growth similarly there was no microbial growth at the hospital therefore will stop the abx. Chief complaint: left flank pain patient is 75-year-old female initially presented at [facility] with left flank pain and CT scan done showed patient had left ureteral 4 mm kidney stone urologist was consulted and and patient was brought to the hospital for further evaluation, patient was seen by urology and taken the patient to OR had a
== END 2020-05-21 17:25 | disposition home or self-care (01) | DRG 661 ==
PROVIDERS: Urology; Admitting Provider Internal Medicine; PCP Family Medicine; Visit Provider Family Medicine
PROC: 0T778DZ Dilation of Left Ureter with Intraluminal Device, Via Natural or Artificial Opening Endoscopic (ICD-10-PCS; CPT 52352; principal; 2020-05-18 07:30)
DX: N13.6 Pyonephrosis (principal); G47.33 Obstructive sleep apnea (adult) (pediatric); K21.9 Gastro-esophageal reflux disease without esophagitis; J45.909 Unspecified asthma, uncomplicated; F41.9 Anxiety disorder, unspecified; K57.90 Diverticulosis of intestine, part unspecified, without perforation or abscess without bleeding; I10 Essential (primary) hypertension; E78.00 Pure hypercholesterolemia, unspecified; L40.9 Psoriasis, unspecified; E11.9 Type 2 diabetes mellitus without complications; Z96.652 Presence of left artificial knee joint; Z90.49 Acquired absence of other specified parts of digestive tract; Z90.710 Acquired absence of both cervix and uterus; Z85.42 Personal history of malignant neoplasm of other parts of uterus; E66.9 Obesity, unspecified; Z68.30 Body mass index [BMI] 30.0-30.9, adult
CPT/HCPCS: 36415; 74018; 74420; 80048; 80053; 81001; 85025; 87040; 87086; A9270; C1758; C1769; C2617; G0378; J0690; J0696; J2405; J2704; J3010; J7042; J7120; Q9966

== ENCOUNTER 2020-05-24 11:32 | Outpatient (CLI) | payer MEDICARE, SELFPAY | END 2020-05-24 11:33 | disposition home or self-care (01) | PROVIDERS: PCP Family Medicine; Visit Provider Urology | DX: N20.1 Calculus of ureter (principal) | CPT/HCPCS: 87077; 87086; 87088; 87186 ==

== ENCOUNTER 2020-05-30 00:52 | Outpatient (CLI) | payer MEDICARE, SELFPAY ==
[2020-05-31 13:49] LABS: SARS-CoV-2 RNA PCR Negative
== END 2020-05-30 00:53 | disposition home or self-care (01) ==
LOC: ANHCOVIDDT 00:52
PROVIDERS: PCP Family Medicine; Visit Provider Urology
DX: Z01.812 Encounter for preprocedural laboratory examination (principal); Z20.828 Contact with and (suspected) exposure to other viral communicable diseases
CPT/HCPCS: 87635; C9803; U0003

== ENCOUNTER 2020-06-01 02:27 | Day surgery (SDC) | payer MEDICARE, SELFPAY ==
[2020-05-23 12:18] VITALS: BMI 30.2
[2020-06-01] VITALS (8 sets, daily range): BP systolic 136–167; BP diastolic 60–97; PULSE 58–69; RESP 12–20; TEMP 36.1–36.9; O2SAT 97–100; BMI 28.3
--- NOTE | ~2020-06-01 | XR_ITS ---
XR abdomen/kub 1V DATE: 06/01/2020 12:45 INDICATION: Preoperative evaluation for retrograde access of stones TECHNIQUE: AP projection, 2 views COMPARISON: 05/18/2020 KUB and retrograde pyelogram FINDINGS: Left internal urinary stent is present. 4 mm calcified calculus at proximal left ureter. Additional calculi are not excluded. Status post cholecystectomy. No bowel obstruction. The psoas shadows are intact. No visceromegaly is detected. IMPRESSION: Left internal urinary stent Proximal left ureteral calcified calculus Reviewed, dictated and finalized at Location A. Reviewed, dictated and finalized at location A.
--- NOTE | ~2020-06-01 | XR_ITS ---
EXAMINATION: XR retrograde pyelo w/stent LT EXAM DATE: 06/01/2020 14:01 INDICATION: Left-sided obstructive nephropathy. TECHNIQUE: Fluoroscopy used during XR retrograde pyelo w/stent LT performed by Dr. Chaz Salas MD. The DAP for this procedure was 0.6 mGym2. FINDINGS: Images demonstrate left ureter being cannulated, injected, and a double-J ureteral stent p laced. Mild left hydronephrosis. There are cholecystectomy clips. Correlate with procedure note. IMPRESSION: Fluoroscopy used during XR retrograde pyelo w/stent LT. Reviewed, dictated and finalized at location B.
[2020-06-01] MEDS: LACTATED RINGERS 1,000 ML 30 ML IV CONT (12:03)
[2020-06-01] MEDS: ACETAMINOPHEN 500 MG TABLET 1000 MG PO (12:08)
--- NOTE | 2020-06-01 12:23 | WPDANESEFPP ---
Anes - Eval Final PreProcedure Day of Procedure 06/01/20 12:23 Patient weight: overweight Heart: regular rate and rhythm Lungs: clear to auscultation Airway: Mallampati scale class II Neurological: alert and oriented Last oral intake: >/= 8 hours ASA classification: III Emergent: no Anesthetic plan: proceed Anesthesia type and monitoring: general LMA and standard monitoring Informed Consent: The patient's anesthetic plan and its attendant risks and benefits were discussed with the patient/family/POA. Questions were solicited and answers provided to the satisfaction of the patient/family/POA.
--- NOTE | 2020-06-01 12:32 | WPDHPUPDATE1 ---
History and Physical Update Update Date/Time: 06/01/20 12:32 History and Physical has been reviewed, including an updated exam of the patient. There are NO changes in the patient's condition. - Pt has been on antibiotics for Enterococcus UTI/ - Plan for cystoscopy, left ureteroscopy, possible laser, stone extraction, stent exchange, RPG - Risks, benefits, and alternatives have been discussed and questions answered. - Patient agrees to proceed with procedure.
[2020-06-01] MEDS: LIDOCAINE HCL 2% GEL UROJET 10 ML PKG MUCOUS MEM (13:35)
--- NOTE | 2020-06-01 13:58 | PM.PROC ---
Procedure Note - Detailed Date of procedure: 06/01/20 Pre-op diagnosis: Left Ureteral Stone Post-op diagnosis: same Procedure performed: Cystoscopy, left ureteroscopy, retrograde pyelogram, laser lithotripsy, stone extraction, stent exchange Description of procedure: Informed consent was obtained. Patient the upper room. She was given preoperative IV antibiotics. The patient has been on oral antibiotics at home. She was induced with anesthesia. She was placed in dorsal lithotomy position. She was prepped draped normal sterile fashion. A 20 F rigid cystoscope through the urethra and the stent was grasped and brought to the urethral meatus. A wire was then advanced. Then dilated with a 8/10 coaxial dilator. A semi rigid ureteroscope was inserted and did pass easily up to the level of the stone in the proximal ureter. The stone was too large to be removed therefore a laser fiber was used to fragment the stone into multiple fragments. Fragments were then grasped and removed and sent as specimen. We then exchanged the flexible ureteral scope and inspected the length of the ureter and there were no significant stones remaining. We entered the kidney a retrograde pyelogram was performed showing mild hydronephrosis without extravasation. We then inspected each calyx and a 2mm residual stone was found grasped with a Zero tip basket and removed. No additional stones were found. We then again inspected the length of the ureter and there were no residual stones seen. Over a wire replaced a 4.8 variable length stent with a curl in the renal pelvis and in bladder. Bladder was then emptied. 10cc of viscous lidocaine was instilled. Patient taken to recovery in stable condition. Implants: Ureteral stent Anesthesia: GETA Surgeon: Chaz Salas MD Estimated blood loss (mL): 2 Drains: No Packing: No Pathology: yes Complications: No immediate complications Condition: stable Disposition: PACU
[2020-06-01] MEDS: ONDANSETRON INJ 4 MG/2 ML VIAL IV PUSH (14:29)
[2020-06-01 14:38] LABS: Glucose Point of Care 90 (65-105)
[2020-06-01] MEDS: fentaNYL CITRATE INJ (*CRX) 100 MCG/2 ML VIAL 25 MCG IV PUSH (14:38)
[2020-06-01] MEDS: oxyCODONE HCL (*CRX) 5 MG TAB IR PO (15:11)
--- NOTE | 2020-06-01 16:26 | SUR.PHASEII ---
1615 -dr. malone in room talking with patient
== END 2020-06-01 16:35 | disposition home or self-care (01) ==
PROVIDERS: PCP Family Medicine; Visit Provider Urology
PROC: (CPT 52352; principal; 2020-06-01 13:00)
PROC: (CPT 52356; 2020-06-01 13:00)
DX: N13.2 Hydronephrosis with renal and ureteral calculous obstruction (principal); I10 Essential (primary) hypertension; E78.00 Pure hypercholesterolemia, unspecified; E11.9 Type 2 diabetes mellitus without complications; J45.909 Unspecified asthma, uncomplicated; G47.33 Obstructive sleep apnea (adult) (pediatric); F41.9 Anxiety disorder, unspecified; L40.9 Psoriasis, unspecified
CPT/HCPCS: 52356; 74018; 74420; 82365; 88300; A9270; C1769; C2617; J1100; J2405; J2704; J3010; J7120; Q9966

== ENCOUNTER 2020-07-19 11:25 | Outpatient (CLI) | payer MEDICARE, SELFPAY ==
--- NOTE | ~2020-07-19 | XR_ITS ---
XR abdomen/kub 1V 07/19/2020 11:53 Indication: History of left ureteral stone. Procedure: KUB Comparison: 06/01/2020 Findings: Bowel gas pattern is nonobstructive. Moderate colonic fecal loading. There are cholecystect marsha clips. There are vascular calcifications in the left upper abdomen. Lung bases unremarkable. Smal l sclerotic lesion of the right ilium, likely benign bone island. Impression: 1: No acute abdominal abnormality. Reviewed, dictated and finalized at location A. DEALER Impression: 1: No acute abdominal abnormality.
== END 2020-07-19 11:26 | disposition home or self-care (01) ==
LOC: ANHIMG 11:29
PROVIDERS: PCP Family Medicine; Visit Provider Urology
DX: N20.1 Calculus of ureter (principal)
CPT/HCPCS: 74018

== ENCOUNTER 2020-08-24 13:59 | Outpatient (CLI) | payer MEDICARE, SELFPAY ==
--- NOTE | ~2020-08-24 | MM_ITS ---
EXAMINATION: MM screening [facility] BI w hailey HISTORY: Screening TECHNIQUE: Craniocaudal and mediolateral oblique 3-D tomosynthesis images were obtained and synthetic 2-D images were generated. CAD analysis was submitted and interpreted. COMPARISON: Comparison to multiple prior studies sequentially, with oldest reviewed study dated 05/28. BREAST PARENCHYMAL COMPOSITION: There are scattered areas of fibroglandular density. FINDINGS: Stable benign-appearing calcifications. There is no evidence of suspicious mass, calcificat ion, or architectural distortion to suggest malignancy in either breast. There has been no suspicious interval change. IMPRESSION: 1. No mammographic evidence of malignancy. 2. Recommend routine screening mammography in one year. BI-RADS Category 2: Benign finding(s). Reviewed, dictated and finalized at location A. O TAPE DUPLICATOR
== END 2020-08-24 14:00 | disposition home or self-care (01) ==
LOC: ANHIMG 14:05
PROVIDERS: PCP Family Medicine; Visit Provider Family Medicine
DX: Z12.31 Encounter for screening mammogram for malignant neoplasm of breast (principal)
CPT/HCPCS: 77063; 77067

== ENCOUNTER 2020-10-26 14:01 | Outpatient (CLI) | payer MEDICARE, SELFPAY ==
[2020-10-26 14:34] LABS: Basophils Percent Auto 0.4 % (0.2-1.2); Eosinophils Absolute Auto 0.1 K/mm3 (0-0.3); Eosinophils Percent Auto 2.6 % (0-4.4); Hematocrit 38.6 % (37.0-47.0); Hemoglobin 12.9 g/dL (12.0-15.0); Immature Granulocyte Absolute 0.02 K/mm3 (0.00-0.031); Immature Granulocyte Percent A 0.4 % (0-0.5); Lymphocytes Absolute Auto 1.32 K/mm3 (0.9-3.2); Lymphocytes Percent Auto 26.4 % (18.3-44.2); Mean Corpuscular HGB Conc 33.4 g/dl (32-36); Mean Corpuscular Hemoglobin 30.7 pg (26-34); Mean Corpuscular Volume 91.9 fl (80-100); Mean Platelet Volume 11.2 fl (7.4-10.4); Monocytes Absolute Auto 0.4 K/mm3 (0.1-0.6); Monocytes Percent Auto 7.6 % (2.6-8.5); Neutrophils Absolute Auto 3.1 K/mm3 (1.3-6.7); Neutrophils Percent Auto 62.6 % (45.5-73.1); Platelet Count Result 206 k/mm3 (150-375); Red Cell Distribution Width 12.6 % (11.5-14.5)
[2020-10-26 14:58] LABS: Alanine Aminotransferase 31 U/L (4-35); Albumin Level 4.4 g/dL (3.5-5.1); Alkaline Phosphatase 63 U/L (38-126); Anion Gap 3 mmol/L (8-16); Aspartate Amino Transferase 42 U/L (14-36); Bilirubin,Total 0.9 mg/dL (0.2-1.3); Blood Urea Nitrogen 23 mg/dL (7-17); Calcium 11.5 mg/dL (8.4-10.2); Carbon Dioxide 35 mmol/L (22-30); Chloride 100 mmol/L (98-107); Estimated Glomerular Filt Rate 54; Glucose 92 mg/dL (65-105); Sodium 138 mmol/L (137-145)
[2020-10-26 15:02] LABS: Potassium 4.3 mmol/L (3.4-5.0)
== END 2020-10-26 14:02 | disposition home or self-care (01) ==
LOC: ANHLAB 14:09
PROVIDERS: PCP Family Medicine
DX: Z51.81 Encounter for therapeutic drug level monitoring (principal); Z79.899 Other long term (current) drug therapy
CPT/HCPCS: 36415; 80053; 85025

== ENCOUNTER 2021-03-13 10:46 | Inpatient (IN) | payer MEDICARE, SELFPAY ==
[2021-03-13] VITALS (15 sets, daily range): BP systolic 105–143; BP diastolic 59–77; PULSE 81–109; RESP 16–28; TEMP 36.6–36.9; O2SAT 95–100; BMI 22.1
--- NOTE | ~2021-03-13 | XR_ITS ---
EXAMINATION: XR chest 1V portable INDICATION: Shortness of breath and cough TECHNIQUE: Portable AP chest at 1128 hours COMPARISON: 01/30/2018 FINDINGS: The lungs are free of acute opacities. There is no pleural effusion or pneumothorax. The ca rdiomediastinal silhouette is normal. IMPRESSION: 1. No acute cardiopulmonary abnormality. Reviewed, dictated and finalized at location B.
--- NOTE | ~2021-03-13 | XR_ITS ---
EXAMINATION: XR chest 1V portable INDICATION: Shortness of breath TECHNIQUE: Portable AP chest at 0851 hours COMPARISON: 03/13/2021 FINDINGS: The lungs are free acute opacities. There is no pleural effusion or pneumothorax. The cardi omediastinal silhouette is normal. There is osteoarthritis of the shoulders. Surgical clips in the [facility] upper quadrant are likely from prior cholecystectomy. IMPRESSION: 1. No acute cardiopulmonary abnormality. Reviewed, dictated and finalized at location B.
--- NOTE | 2021-03-13 10:55 | ECG_ITS ---
Measurements Intervals [place] Rate: 88 P: 36 [place]: 180 QRS: 13 QRSD: 94 T: 11 QT: 340 QTc: 412 Interpretive Statements SINUS RHYTHM NONSPECIFIC ST & T-WAVE ABNORMALITY- ANT/INF LEADS BASELINE ARTIFACT- I, II, III BORDERLINE ECG Electronically Signed On 03-13-2021 11:41:45 CDT by Glenn Feliz D.O.
--- NOTE | 2021-03-13 10:57 | ED.SOB ---
HPI - SOB/Dyspnea General Chief Complaint: Shortness of Breath/Dyspnea Stated Complaint: SOB x 3 days Time Seen by Provider: 03/13/21 10:47 History of Present Illness HPI Narrative: 76 yo female w/ h/o asthma presents to the ED for SOB. Cough and SOB for the past 3 days. She has bene using albuterol without significnat improvement. No fever or chest pain. She has had fully covid-19 vaccination Related Data Home Medications Medication Instructions Recorded Confirmed Otezla 30 mg PO BID 10/08/19 03/13/21 albuterol sulfate [Ventolin HFA] 2 puff INHALATION PRN PRN 10/08/19 03/13/21 cyanocobalamin (vitamin B-12) 1,000 mcg PO DAILY 10/08/19 03/13/21 furosemide 20 mg PO DAILY 10/08/19 03/13/21 fenofibrate 145 mg PO DAILY 05/18/20 03/13/21 meloxicam 15 mg PO DAILY 05/18/20 03/13/21 mometasone 1 applic TOPICAL DAILY 05/18/20 03/13/21 atorvastatin 20 mg PO DAILY 03/13/21 03/13/21 citalopram 10 mg PO DAILY 03/13/21 03/13/21 lisinopril 20 mg PO DAILY 03/13/21 03/13/21 pantoprazole 40 mg PO QAM 03/13/21 03/13/21 Allergies Allergy/AdvReac Type Severity Reaction Status Date / Time No Known Allergies Allergy Verified 03/13/21 14:46 Review of Systems Review of Systems: All systems reviewed & are unremarkable except as noted in HPI and below Constitutional: Constitutional: Denies fever(s) ENT: Denies dizziness Cardiovascular: Cardiovascular: Denies chest pain Respiratory: Respiratory: Reports cough and Reports dyspnea Gastrointestinal: Gastrointestinal: Denies nausea and Denies vomiting Genitourinary: Genitourinary: Reports no additional female genitourinary complaints Neurologic: Reports system reviewed and no additional complaints, except as documented [facility] Past Medical History Medical History Anxiety Asthma Diabetes Hemoglobin A1c 5.26 February 2020 Diverticulosis Essential hypertension Gastroesophageal reflux disease Hypercholesterolemia DEJA (obstructive sleep apnea) No longer on CPAP after 100 lb weight loss Pancreatitis gallstone Psoriasis Surgical History Surgical History History of cholecystectomy History of colonoscopy with polypectomy History of total left knee replacement (10/2019) Hx of hysterectomy Due to uterine cancer Family History Family History Father Asthma Mother Hypertension Diabetes mellitus Acute myocardial infarction Sibling End-stage renal disease on hemodialysis sister COPD (chronic obstructive pulmonary disease) brother and sister Acute myocardial infarction 2 brothers Renal cancer sister Social History Social History Social History: She has 2 sons. 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 patient is a lifelong nonsmoker. She does not use any alcohol marijuana illicit drugs. The patient desires to be a full code. Her oldest son is the durable power business attorney for healthcare. Code status: Full code Surrogate decision maker: Oldest son Smoking status: Never smoker Alcohol intake: never Substance use: never Substance use type: does not use Additional living arrangements comments: She lives in her own home. She has been since 1989 Spiritual care concerns: No Agree to blood products: Yes Exam Const: General: alert Nutritional Appearance: obese Orientation/consciousness: patient oriented x3 Other: mild distress HENMT: Head: normal to inspection Neck: Neck: normal visual inspection and no lymphadenopathy Resp: Effort & Inspection: tachypneic Auscultation: wheezes scattered wheezes Cardio: Rate: regular rate Rhythm: regular rhythm GI: GI Palp: Yes Soft to palpation and No Tenderness to palpation present (GI) Skin: General skin exam: normal colo
[2021-03-13] MEDS: ALBUTEROL SULFATE NEB 2.5 MG/0.5 ML INH 5 MG INHALATION (11:06)
[2021-03-13] MEDS: IPRATROPIUM BR 0.02% INH SOLN 0.5 MG/2.5 ML VIAL INHALATION ×2 (11:06→21:57)
[2021-03-13 11:34] LABS: Basophils Percent Auto 0.2 % (0.2-1.2); Eosinophils Absolute Auto 0.1 K/mm3 (0-0.3); Eosinophils Percent Auto 1.3 % (0-4.4); Hematocrit 37.9 % (37.0-47.0); Hemoglobin 12.4 g/dL (12.0-15.0); Immature Granulocyte Absolute 0.02 K/mm3 (0.00-0.031); Immature Granulocyte Percent A 0.4 % (0-0.5); Lymphocytes Absolute Auto 0.98 K/mm3 (0.9-3.2); Lymphocytes Percent Auto 21.6 % (18.3-44.2); Mean Corpuscular HGB Conc 32.7 g/dl (32-36); Mean Corpuscular Hemoglobin 30.1 pg (26-34); Mean Platelet Volume 11.3 fl (7.4-10.4); Monocytes Absolute Auto 0.4 K/mm3 (0.1-0.6); Monocytes Percent Auto 9.7 % (2.6-8.5); Neutrophils Percent Auto 66.8 % (45.5-73.1); Platelet Count Result 147 k/mm3 (150-375); Red Blood Count 4.12 M/mm3 (4.2-5.4); Red Cell Distribution Width 12.9 % (11.5-14.5); White Blood Count 4.5 K/mm3 (4.5-10.0)
[2021-03-13 11:44] LABS: Alanine Aminotransferase 40 U/L (4-35); Albumin Level 4.5 g/dL (3.5-5.1); Alkaline Phosphatase 70 U/L (38-126); Anion Gap 13 mmol/L (8-16); Aspartate Amino Transferase 55 U/L (14-36); Bilirubin,Total 1.4 mg/dL (0.2-1.3); Blood Urea Nitrogen 22 mg/dL (7-17); Calcium 11.3 mg/dL (8.4-10.2); Carbon Dioxide 26 mmol/L (22-30); Chloride 100 mmol/L (98-107); Estimated CRCL calculation 48 ml/min; Estimated Glomerular Filt Rate 54; Glucose 102 mg/dL (65-110); Potassium 3.2 mmol/L (3.4-5.0); Prothrombin Time 13.5 Seconds (11.1-14.7); Sodium 139 mmol/L (137-145)
[2021-03-13 11:45] LABS: Partial Thromboplastin Time 34.3 SECONDS (22.3-36.8)
[2021-03-13 11:53] LABS: NT Pro B Type Natriuretic Pept 209 pg/mL (5-100)
[2021-03-13] MEDS: methylPREDNISolone SOD SUCC 125 MG VIAL IV PUSH (12:52)
[2021-03-13] MEDS: MAGNESIUM SULF 2 GM/WATER 50ML 2 GM/50 ML BAG IVPB (13:36)
--- NOTE | 2021-03-13 13:55 | ADMGEN ---
This patient, Leia Jane, was admitted to Medical Room 348-01. Patient/family oriented to hospital policies and general routines including ID bracelet, bed and alarms, visiting hours, pain management, procedures, bathroom and other care routines, personal items, smoking policy, room service/diet, and visiting hours. Information on how to activate the Rapid Response Team has been discussed. Patient/Family are encouraged to report perceived risks to care and to ask questions if they do not understand what they are told or what they should do.
--- NOTE | 2021-03-13 14:57 | PM.IMHP ---
H&P: HPI History of Present Illness Date/Time: 03/13/21 14:57 this is a 76-year-old female patient who has a history of asthma. She also has a history of obstructive sleep apnea and has lost over 100 lb and no longer uses her CPAP. Patient does not use any oxygen at home either. The patient stated that this last Saturday she started with a cough and shortness of breath. She noticed that she was wheezing. She used her inhaler at home which only helped minimally. The patient had audible wheezes. The patient was given Solu-Medrol, and nebulizer treatment. chest x-ray was read as no acute cardiopulmonary abnormality. Potassium was found to be 3.2. Liver enzymes are slightly elevated with total bilirubin 1.4, AST 55, ALT 40. BNP was 209. Oxygen was applied at 2 L per nasal cannula. After the nebulizer treatment the patient was shaky and nervous. I ordered her some Ativan. The patient does have a history of having depression with anxiety. The patient is being admitted for observation status on the date of service 03/13/2021. Chief Complaint: sob Review of Systems Review of Systems: All systems reviewed & are unremarkable except as noted in HPI and below Constitutional: Constitutional: Reports as per HPI and Reports no additional constitutional complaints Eyes: Eyes: Reports as per HPI and Reports no additional eye complaints ENT: Reports system reviewed and no additional complaints, except as documented and Reports Normal hearing present Cardiovascular: Cardiovascular: Reports no additional cardiovascular complaints Respiratory: Respiratory: Reports no additional respiratory complaints and Reports no additional respiratory complaints Gastrointestinal: Gastrointestinal: Reports as per HPI and Reports no additional gastrointestinal complaints Musculoskeletal: Musculoskeletal: Reports no additional musculoskeletal complaints Integumentary/Breasts: Skin/Breast: Reports system reviewed and no additional complaints, except as docu and Reports as per HPI Neurologic: Reports system reviewed and no additional complaints, except as documented, Reports as per HPI and Reports Normal hearing present Psychiatric: Psychiatric: Reports no additional psychiatric complaints and Reports as per HPI Endocrine: Endocrine: Reports no additional endocrine complaints Hematologic/Lymphatic: Hematologic/Lymphatic: Reports no additional hematologic/lymphatic complaints Allergic/Immunologic: Allergic/Immunologic: Reports no additional allergic/immunologic complaints PMFSH Past Medical History Medical History Anxiety Asthma Diabetes Hemoglobin A1c 5.26 February 2020 Diverticulosis Essential hypertension Gastroesophageal reflux disease Hypercholesterolemia DEJA (obstructive sleep apnea) No longer on CPAP after 100 lb weight loss Pancreatitis gallstone Psoriasis Surgical History Surgical History History of cholecystectomy History of colonoscopy with polypectomy History of total left knee replacement (10/2019) Hx of hysterectomy Due to uterine cancer Family History Family History Father Asthma Mother Hypertension Diabetes mellitus Acute myocardial infarction Sibling End-stage renal disease on hemodialysis sister COPD (chronic obstructive pulmonary disease) brother and sister Acute myocardial infarction 2 brothers Renal cancer sister Social History Social History (Updated 03/13/21 @ 15:03 by Angelique Guthrie NP) Social History: She has 2 sons. 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 patient is a lifelong nonsmoker. She does not use any alcohol marijuana illicit drugs. The patient desires to be a full code. Her oldest son is the durable power traffic law attorney for healthcare. Code status: Full code Surrogate decision m
[2021-03-13] MEDS: POTASSIUM CHLORIDE 20 MEQ PACKET (FOR LIQUID) PO (15:27)
--- NOTE | 2021-03-13 15:56 | PHAR ---
HOME MED VERIFIED = OTEZLA 30 MG. 2 TABS IN HOME BOTTLE. MEDS IN 60 TABLET MANUFACTURERS STOCK BOTTLE WITH RX LABEL SHOWING ONLY PATIENT NAME, DRUG NAME & DIRECTIONS. RX# & DISPENSING PHARMACY INFO NOT ON BOTTLE.
[2021-03-13 17:16] LABS: Hemoglobin A1C 5.3 % (<5.7)
[2021-03-13] MEDS: methylPREDNISolone SOD SUCC 125 MG VIAL 60 MG IV PUSH ×2 (17:46→23:48)
[2021-03-14] VITALS (17 sets, daily range): BP systolic 105–143; BP diastolic 55–63; PULSE 69–94; RESP 16–22; TEMP 36.3–36.5; O2SAT 95–99
[2021-03-14] MEDS: IPRATROPIUM BR 0.02% INH SOLN 0.5 MG/2.5 ML VIAL INHALATION ×4 (02:21→21:07)
[2021-03-14 05:56] LABS: Hemoglobin 11.4 g/dL (12.0-15.0); Immature Granulocyte Absolute 0.03 K/mm3 (0.00-0.031); Immature Granulocyte Percent A 0.8 % (0-0.5); Lymphocytes Absolute Auto 0.19 K/mm3 (0.9-3.2); Mean Corpuscular HGB Conc 32.6 g/dl (32-36); Mean Corpuscular Hemoglobin 30.7 pg (26-34); Mean Corpuscular Volume 94.3 fl (80-100); Mean Platelet Volume 11.8 fl (7.4-10.4); Monocytes Absolute Auto 0.1 K/mm3 (0.1-0.6); Monocytes Percent Auto 2.1 % (2.6-8.5); Neutrophils Absolute Auto 3.5 K/mm3 (1.3-6.7); Neutrophils Percent Auto 92.1 % (45.5-73.1); Platelet Count Result 148 k/mm3 (150-375); Red Blood Count 3.71 M/mm3 (4.2-5.4); Red Cell Distribution Width 13.1 % (11.5-14.5); White Blood Count 3.8 K/mm3 (4.5-10.0)
[2021-03-14 06:01] LABS: Alanine Aminotransferase 42 U/L (4-35); Albumin Level 3.9 g/dL (3.5-5.1); Alkaline Phosphatase 57 U/L (38-126); Anion Gap 10 mmol/L (8-16); Aspartate Amino Transferase 54 U/L (14-36); Bilirubin,Total 0.7 mg/dL (0.2-1.3); Blood Urea Nitrogen 24 mg/dL (7-17); Calcium 10.6 mg/dL (8.4-10.2); Carbon Dioxide 24 mmol/L (22-30); Chloride 104 mmol/L (98-107); Estimated CRCL calculation 48 ml/min; Estimated Glomerular Filt Rate 54; Glucose 200 mg/dL (65-110); Magnesium 2.2 mg/dL (1.6-2.3); Potassium 4.2 mmol/L (3.4-5.0); Sodium 138 mmol/L (137-145)
[2021-03-14] MEDS: methylPREDNISolone SOD SUCC 125 MG VIAL 60 MG IV PUSH ×4 (06:01→23:39)
[2021-03-14 06:02] LABS: Lactic Acid Reflex 2.5 mmol/L (0.7-2.1)
[2021-03-14] MEDS: ACETAMINOPHEN 325 MG TABLET 650 MG PO (06:50)
[2021-03-14 07:11] LABS: Thyroid Stimulating Hormone Reflex 0.403 uIU/mL (0.465-4.68)
[2021-03-14 08:17] LABS: CRP 1.3 mg/dL (<1.0); Lactate Dehydrogenase 270 U/L (313-618)
[2021-03-14 08:44] LABS: Reflex Lactic Acid Yes or No Add Lactic
[2021-03-14] MEDS: CYANOCOBALAMIN 1,000 MCG TABLET 1000 MCG PO (08:51)
[2021-03-14] MEDS: ENOXAPARIN 40 MG/0.4 ML SYRINGE SUB-Q (08:51)
[2021-03-14] MEDS: ATORVASTATIN 20 MG TABLET PO (08:51)
[2021-03-14] MEDS: MELOXICAM 7.5 MG TABLET 15 MG PO (08:51)
[2021-03-14] MEDS: FENOFIBRATE NANOCRYSTALLIZED 145 MG TABLET PO (08:51)
[2021-03-14] MEDS: PANTOPRAZOLE 40 MG TABLET PO (08:52)
[2021-03-14] MEDS: lisinopriL 20 MG TABLET PO (08:52)
[2021-03-14] MEDS: TRIAMCINOLONE ACET 0.1% CREAM 15 GM TUBE 1 APPLIC TOPICAL (08:52)
[2021-03-14] MEDS: FUROSEMIDE 20 MG TABLET PO (08:52)
[2021-03-14] MEDS: CITALOPRAM HYDROBROMIDE 10 MG TABLET PO (08:52)
[2021-03-14 09:17] LABS: Lactic Acid 4.2 mmol/L (0.7-2.1)
[2021-03-14 11:19] LABS: Total Triiodothyronine (T3) 0.94 NG/ML (0.97-1.69)
--- NOTE | 2021-03-14 16:13 | PM.IMPN ---
Progress Note: A&P Assessment and Plan (1) Acute respiratory failure with hypoxia: Code(s): J96.01 - Acute respiratory failure with hypoxia Status: Acute Assessment and Plan: the patient was initially requiring 2 L of oxygen in the emergency room. At this time she is resting comfortably on room air. This is due to acute asthma exacerbation. Continue monitoring hypoxia levels and oxygenation during hospitalization. (2) Exacerbation of asthma: Code(s): J45.901 - Unspecified asthma with (acute) exacerbation Status: Acute Assessment and Plan: Patient is a 76-year-old woman with a history of asthma, who came into the emergency room with worsening shortness of breath for the last 1 week. Symptoms were unable to be improved at home with her rescue inhaler, nebulizer treatments so she came in for further evaluation. in the emergency room she was given nebulizer treatments, IV Solu-Medrol,IV magnesium, but she was hypoxic so she was admitted into the hospital with an asthma exacerbation to continue on IV Solu-Medrol, DuoNeb treatments q.6 hours, and further evaluation and monitoring. The patient has seen a medical sales in the past, but not recently. I will consult pulmonology due to her respiratory symptoms for further evaluation monitoring and to help with follow-up after discharge. The patient was able to be wean down on her oxygen and is now resting comfortably on room air. She still has significant wheezing auscultated and dyspnea with exertion and some dyspnea noted with conversation. Continue monitoring. (3) Lactic acid increased: Code(s): E87.2 - Acidosis Status: Acute Assessment and Plan: The patient is here for asthma exacerbation, shortness of breath, wheezing. She was started on IV Levaquin due to COPD exacerbation and coverage for pneumonia. she does not look septic at this time with an elevated lactic acid level of 4.2. This could be due to albuterol. Albuterol has been found to have a rising lactic acid levels. She is not having any abdominal pain because I considered ischemic bowel. She is only having respiratory symptoms at this time and they are improving since her arrival and she is on room air at this time. At this time I will not workup lactic acid further unless she develops worsening symptoms. (4) Anxiety: Code(s): F41.9 - Anxiety disorder, unspecified Status: Acute Assessment and Plan: continue with p.r.n. Ativan as the patient is anxious today. Continue with patient's Celexa (5) Gastroesophageal reflux disease: Qualifiers: Esophagitis presence: without esophagitis Qualified Code(s): K21.9 - Gastro-esophageal reflux disease without esophagitis Code(s): K21.9 - Gastro-esophageal reflux disease without esophagitis Status: Acute Assessment and Plan: continue with her pantoprazole (6) DEJA (obstructive sleep apnea): Code(s): G47.33 - Obstructive sleep apnea (adult) (pediatric) Status: Acute Assessment and Plan: the patient lost 100 lb and states that she no longer uses her CPAP machine. (7) Hypercholesterolemia: Code(s): E78.00 - Pure hypercholesterolemia, unspecified Status: Acute Assessment and Plan: Continue with fenofibrate. Continue with simvastatin (8) Diabetes: Qualifiers: Diabetes mellitus complication status: without complication Diabetes mellitus alf insulin use: without ferry terminal agent use Diabetes mellitus type: type 2 Qualified Code(s): E11.9 - Type 2 diabetes mellitus without complicatio
[2021-03-14] MEDS: BENZOCAINE/MENTHOL (*BKC) 18 EA LOZENGE 1 LOZENGE PO (19:38)
[2021-03-14] MEDS: guaiFENesin/DEXTROMETHORPHAN 10 ML UDC 5 ML PO (19:38)
--- NOTE | 2021-03-14 21:23 | PC.NURSE ---
This patient, Leia Jane, was received from [address] [place] [address] on 03/14/21 at 2123. Patient/family oriented to unit policies and routines
--- NOTE | 2021-03-14 21:30 | PC.NURSE ---
This patient, Leia Jane, was transferred to Med Surg Rm. 333 on 03/14/21 at 2123. Patient's chart, medications, and belongs sent with patient. Report called to JON Cortez.
[2021-03-15] VITALS (12 sets, daily range): BP systolic 110–162; BP diastolic 59–79; PULSE 66–116; RESP 18–24; TEMP 36.2–36.7; O2SAT 96–98
[2021-03-15] MEDS: ACETAMINOPHEN 325 MG TABLET 650 MG PO (00:59)
[2021-03-15] MEDS: IPRATROPIUM BR 0.02% INH SOLN 0.5 MG/2.5 ML VIAL INHALATION ×4 (03:08→21:05)
[2021-03-15] MEDS: guaiFENesin/DEXTROMETHORPHAN 10 ML UDC 5 ML PO ×2 (05:00→10:25)
[2021-03-15] MEDS: methylPREDNISolone SOD SUCC 125 MG VIAL 60 MG IV PUSH (05:01)
[2021-03-15 07:09] LABS: Hematocrit 37.1 % (37.0-47.0); Hemoglobin 11.8 g/dL (12.0-15.0); Mean Corpuscular HGB Conc 31.8 g/dl (32-36); Mean Corpuscular Volume 94.4 fl (80-100); Mean Platelet Volume 12.5 fl (7.4-10.4); Platelet Count Result 174 k/mm3 (150-375); Red Blood Count 3.93 M/mm3 (4.2-5.4); Red Cell Distribution Width 13.1 % (11.5-14.5); White Blood Count 7.9 K/mm3 (4.5-10.0)
[2021-03-15 07:33] LABS: Anion Gap 8 mmol/L (8-16); Blood Urea Nitrogen 35 mg/dL (7-17); Calcium 10.9 mg/dL (8.4-10.2); Carbon Dioxide 24 mmol/L (22-30); Chloride 102 mmol/L (98-107); Estimated CRCL calculation 48 ml/min; Estimated Glomerular Filt Rate 54; Glucose 205 mg/dL (65-110); Potassium 4.3 mmol/L (3.4-5.0); Sodium 134 mmol/L (137-145)
[2021-03-15 08:10] LABS: Glucose Point of Care 167 mg/dl (65-105)
[2021-03-15 09:57] LABS: CRP < 0.5 mg/dL (<1.0); Lactate Dehydrogenase 417 U/L (313-618)
[2021-03-15] MEDS: ENOXAPARIN 40 MG/0.4 ML SYRINGE SUB-Q (10:23)
[2021-03-15] MEDS: MELOXICAM 7.5 MG TABLET 15 MG PO (10:23)
[2021-03-15] MEDS: BENZOCAINE/MENTHOL (*BKC) 18 EA LOZENGE 1 LOZENGE PO (10:23)
[2021-03-15] MEDS: lisinopriL 20 MG TABLET PO (10:24)
[2021-03-15] MEDS: PANTOPRAZOLE 40 MG TABLET PO (10:24)
[2021-03-15] MEDS: TRIAMCINOLONE ACET 0.1% CREAM 15 GM TUBE 1 APPLIC TOPICAL (10:24)
[2021-03-15] MEDS: ATORVASTATIN 20 MG TABLET PO (10:24)
[2021-03-15] MEDS: CYANOCOBALAMIN 1,000 MCG TABLET 1000 MCG PO (10:24)
[2021-03-15] MEDS: FENOFIBRATE NANOCRYSTALLIZED 145 MG TABLET PO (10:24)
[2021-03-15] MEDS: CITALOPRAM HYDROBROMIDE 10 MG TABLET PO (10:24)
[2021-03-15] MEDS: FUROSEMIDE 20 MG TABLET PO (10:24)
--- NOTE | 2021-03-15 12:03 | PM.CNPUL ---
Assessment and Plan Assessment and plan (1) Exacerbation of asthma: Code(s): J45.901 - Unspecified asthma with (acute) exacerbation Status: Acute Assessment and Plan: Patient with a history of lifelong asthma and well controlled on p.r.n. beta agonist prior to developing a cough followed by an asthma exacerbation. Patient was exposed to a grandchild who had a URI prior to her exacerbation and may have a respiratory infection at this time. I see no evidence of fluid overload. Patient has currently improved on Solu-Medrol 40 mg IV q.6. Patient still has end expiratory wheezes today and I will continue this dose today. PE I will also continue ipratropium 0.5 mg nebulization q.6 and leave albuterol 1.25 mg nebulization q.6 hours. Of note patient had shaking with albuterol. I will continue levofloxacin for possible tracheobronchitis. Patient had a chest x-ray with no focal pneumonia. COVID test is pending. Patient's saturations are 96% on room air at this time and I do not think she needs supplemental oxygen. Will follow with you. History of Present Illness History of Present Illness Consult date: 03/15/21 Requesting physician: Dana Segura PA-C Reason for consult: asthma Chief complaint: URI/SOB Narrative: This is a new Pulmonary consultation for asthma 76-year-old with a history of asthma diagnosed at age 4 year for and has been on inhalers all her life. Most recently she is on albuterol p.r.n. which controls her asthma well. She states she can walk 2 miles over 45 minutes without any shortness of breath. She has been controlled using short-acting beta agonist 1 time per month and purging a symptom guidelines she has no daytime asthma symptoms, no nocturnal awakenings, uses her short-acting beta agonist once a month and has no activity limitations due to asthma She has never been intubated. Her last hospitalization was 6-7 years ago and she has had no outpatient exacerbations in the last year.. On 03/07 patient was visiting with her grandchild who had a cough and on 03/08 the patient started to have a cough. On 03/10 patient felt she had an asthma attack with wheezing, rattling in her chest and she tried to take or inhaler through the weekend. On 03/13 her inhaler was running out and she called her doctor's appointment but could not see them. She came to the ER and had a white blood cell count of 4.5 with 1.3% eosinophils, a BNP of 209 a chest x-ray with no active disease. Patient was initiated on Solu-Medrol, ipratropium, leave albuterol, and levofloxacin. 03/15 Today the patient tells me that she is improved than when she arrived to the hospital. Patient states she has 50% back to normal. Her phlegm is clear now and she can take deeper breaths. She denies any fever, rigors or chest pains. COVID test is pending. Room air saturations are 96%. Review of Systems Review of Systems: All systems reviewed & are unremarkable except as noted in HPI and below Eyes: Eyes: Reports no additional eye complaints ENT: Reports system reviewed and no additional complaints, except as documented Cardiovascular: Cardiovascular: Reports no additional cardiovascular complaints Respiratory: Respiratory: Reports no additional respiratory complaints Gastrointestinal: Gastrointestinal: Reports no additional gastrointestinal complaints Musculoskeletal: Musculoskeletal: Reports no additional musculoskeletal complaints Integumentary/Breasts: Skin/Breast: Reports system reviewed and no additional complaints, except as docu Neurologic: Reports system reviewed and no additional complaints, except as documented Psychiatric: Psychiatric: Reports no additional psychiatric complaints Endocrine: Endocrine: Reports no additional endocrine complaints PMFSH Past Medical History Medical History Anxiety Asthma Diabetes Hemoglobin A1c 5.3 March 14
[2021-03-15 12:48] LABS: Glucose Point of Care 257 mg/dl (65-105)
[2021-03-15] MEDS: INSULIN ASPART (*BKC) 100 UNITS/ML SUB-Q (12:57)
[2021-03-15] MEDS: methylPREDNISolone SOD SUCC 40 MG VIAL IV PUSH ×3 (12:57→23:10)
--- NOTE | 2021-03-15 14:44 | PM.IMPN ---
Progress Note: A&P Assessment and Plan (1) Acute respiratory failure with hypoxia: Code(s): J96.01 - Acute respiratory failure with hypoxia Status: Acute Assessment and Plan: the patient was initially requiring 2 L of oxygen in the emergency room. At this time she is resting comfortably on room air. This is due to acute asthma exacerbation and ruling out COVID 19 On RA. Pending covid swab and continuing asthma exac tx . Continue monitoring hypoxia levels and oxygenation during hospitalization. (2) Exacerbation of asthma: Code(s): J45.901 - Unspecified asthma with (acute) exacerbation Status: Acute Assessment and Plan: Patient is a 76-year-old woman with a history of asthma, who came into the emergency room with worsening shortness of breath for the last 1 week. Symptoms were unable to be improved at home with her rescue inhaler, nebulizer treatments so she came in for further evaluation. in the emergency room she was given nebulizer treatments, IV Solu-Medrol,IV magnesium, but she was hypoxic so she was admitted into the hospital with an asthma exacerbation to continue on IV Solu-Medrol, DuoNeb treatments q.6 hours, and further evaluation and monitoring. The patient was able to be wean down on her oxygen and is now resting comfortably on room air. She still has significant wheezing auscultated and dyspnea with exertion and some dyspnea noted with conversation. Sleeve Setter Lockstitch, Dr. Aragon,Evaluated the patient and recommended continuing with current IV Solu-Medrol dosing, DuoNeb treatments Due to wheezing at this time. Continue monitoring. (3) Lactic acid increased: Code(s): E87.2 - Acidosis Status: Acute Assessment and Plan: The patient is here for asthma exacerbation, shortness of breath, wheezing. She was started on IV Levaquin due to COPD exacerbation and coverage for pneumonia. she does not look septic at this time with an elevated lactic acid level of 4.2. This could be due to albuterol. Albuterol has been found to have a rising lactic acid levels. She is not having any abdominal pain because I considered ischemic bowel. She is only having respiratory symptoms at this time and they are improving since her arrival and she is on room air at this time. At this time I will not workup lactic acid further unless she develops worsening symptoms. (4) Anxiety: Code(s): F41.9 - Anxiety disorder, unspecified Status: Acute Assessment and Plan: continue with p.r.n. Ativan as the patient is anxious today. Continue with patient's Celexa (5) Gastroesophageal reflux disease: Qualifiers: Esophagitis presence: without esophagitis Qualified Code(s): K21.9 - Gastro-esophageal reflux disease without esophagitis Code(s): K21.9 - Gastro-esophageal reflux disease without esophagitis Status: Acute Assessment and Plan: continue with her pantoprazole (6) DEJA (obstructive sleep apnea): Code(s): G47.33 - Obstructive sleep apnea (adult) (pediatric) Status: Acute Assessment and Plan: the patient lost 100 lb and states that she no longer uses her CPAP machine. (7) Hypercholesterolemia: Code(s): E78.00 - Pure hypercholesterolemia, unspecified Status: Acute Assessment and Plan: Continue with fenofibrate. Continue with simvastatin (8) Diabetes: Qualifiers: Diabetes mellitus complication status: without complication Diabetes mellitus parts counterman insulin use: without fdc use Diabetes mellitus type: type 2 Qualified Code(s): E11.9 - Type 2
[2021-03-15 18:43] LABS: Glucose Point of Care 142 mg/dl (65-105)
[2021-03-15 19:08] LABS: SARS-CoV-2 RNA PCR Negative
[2021-03-15 20:53] LABS: Glucose Point of Care 180 mg/dl (65-105)
[2021-03-16] VITALS (9 sets, daily range): BP systolic 117–144; BP diastolic 70–97; PULSE 76–86; RESP 16–20; TEMP 36.1–36.8; O2SAT 93–97
[2021-03-16] MEDS: IPRATROPIUM BR 0.02% INH SOLN 0.5 MG/2.5 ML VIAL INHALATION ×4 (02:04→21:20)
[2021-03-16] MEDS: ACETAMINOPHEN 325 MG TABLET 650 MG PO ×2 (03:50→18:23)
[2021-03-16] MEDS: methylPREDNISolone SOD SUCC 40 MG VIAL IV PUSH ×3 (06:32→18:23)
[2021-03-16] MEDS: PANTOPRAZOLE 40 MG TABLET PO (09:42)
[2021-03-16] MEDS: CITALOPRAM HYDROBROMIDE 10 MG TABLET PO (09:42)
[2021-03-16] MEDS: FUROSEMIDE 20 MG TABLET PO (09:42)
[2021-03-16] MEDS: ATORVASTATIN 20 MG TABLET PO (09:42)
[2021-03-16] MEDS: MELOXICAM 7.5 MG TABLET 15 MG PO (09:42)
[2021-03-16] MEDS: ENOXAPARIN 40 MG/0.4 ML SYRINGE SUB-Q (09:43)
[2021-03-16] MEDS: CYANOCOBALAMIN 1,000 MCG TABLET 1000 MCG PO (09:43)
[2021-03-16] MEDS: lisinopriL 20 MG TABLET PO (09:43)
[2021-03-16] MEDS: FENOFIBRATE NANOCRYSTALLIZED 145 MG TABLET PO (09:43)
[2021-03-16] MEDS: TRIAMCINOLONE ACET 0.1% CREAM 15 GM TUBE 1 APPLIC TOPICAL (09:45)
[2021-03-16 09:55] LABS: Glucose Point of Care 199 mg/dl (65-105)
--- NOTE | 2021-03-16 10:04 | PM.IMPN ---
Progress Note: A&P Assessment and Plan (1) Exacerbation of asthma: Code(s): J45.901 - Unspecified asthma with (acute) exacerbation Status: Acute Assessment and Plan: Patient is a 76-year-old woman with a history of asthma, who came into the emergency room with worsening shortness of breath for the last 1 week. Symptoms were unable to be improved at home with her rescue inhaler, nebulizer treatments so she came in for further evaluation. in the emergency room she was given nebulizer treatments, IV Solu-Medrol,IV magnesium, but she was hypoxic so she was admitted into the hospital with an asthma exacerbation to continue on IV Solu-Medrol, DuoNeb treatments q.6 hours, and further evaluation and monitoring. The patient was able to be wean down on her oxygen and is now resting comfortably on room air but continues to have significant wheezing and [place]. 03/16/21- Real Estate Sales Supervisor, Dr. Aragon, evaluated the patient and recommended INCREASING Ipratropium + Xopenex to Q4hrs, and continuing with current IV Solu-Medrol dosing 40 mg q6hrs and IV Levaquin Day #3. Patient is immunocompromised from skyrizi and otezla which she is on from her psoriasis, Dr. Aragon will DISCONTINUE otezla today 03/16/21. Her, next injection of skyrizi is scheduled for 03/26/21. Continue monitoring. (2) Acute respiratory failure with hypoxia: Code(s): J96.01 - Acute respiratory failure with hypoxia Status: Acute Assessment and Plan: the patient was initially requiring 2 L of oxygen in the emergency room. At this time she is resting comfortably on room air. This is due to acute asthma exacerbation and ruling out COVID 19 COVID negative, ruled out On RA but still with significant wheezing and [place]. Will need Home O2 evaluation when stable for discharge. Continue monitoring hypoxia levels and oxygenation during hospitalization. (3) Lactic acid increased: Code(s): E87.2 - Acidosis Status: Acute Assessment and Plan: The patient is here for asthma exacerbation, shortness of breath, wheezing. She was started on IV Levaquin due to COPD exacerbation and coverage for pneumonia. she does not look septic at this time with an elevated lactic acid level of 4.2. This could be due to albuterol. Albuterol has been found to have a rising lactic acid levels. She is not having any abdominal pain because I considered ischemic bowel. She is only having respiratory symptoms at this time and they are improving since her arrival and she is on room air at this time. At this time I will not workup lactic acid further unless she develops worsening symptoms. (4) Anxiety: Code(s): F41.9 - Anxiety disorder, unspecified Status: Acute Assessment and Plan: continue with p.r.n. Ativan as the patient is anxious today. Continue with patient's Celexa (5) Gastroesophageal reflux disease: Qualifiers: Esophagitis presence: without esophagitis Qualified Code(s): K21.9 - Gastro-esophageal reflux disease without esophagitis Code(s): K21.9 - Gastro-esophageal reflux disease without esophagitis Status: Acute Assessment and Plan: continue with her pantoprazole (6) DEJA (obstructive sleep apnea): Code(s): G47.33 - Obstructive sleep apnea (adult) (pediatric) Status: Acute Assessment and Plan: the patient lost 100 lb and states that she no longer uses her CPAP machine. (7) Hypercholesterolemia: Code(s): E78.00 - Pure hypercholesterolemia, unspecified Status: Acute Assessment and Plan: Continue with fenofibrate. Continue with simvastatin
--- NOTE | 2021-03-16 10:48 | PM.PNPUL ---
Progress Note: A&P Assessment and Plan (1) Exacerbation of asthma: Code(s): J45.901 - Unspecified asthma with (acute) exacerbation Status: Acute Assessment and Plan: Patient with a history of lifelong asthma and well controlled on p.r.n. beta agonist prior to developing a cough followed by an asthma exacerbation. Patient was exposed to a grandchild who had a URI prior to her exacerbation and may have a respiratory infection at this time. I see no evidence of fluid overload. She is immunocompromised as she is on skyrizi and otezla for her psoriasis. 03/16 Patient has currently improved on Solu-Medrol 40 mg IV q.6 (started 03/13). Patient still has end expiratory wheezes today and I will continue this dose today. PE I will also continue ipratropium 0.5 mg nebulization q.6 and leave albuterol 1.25 mg nebulization q.6 hours. Of note patient had shaking with albuterol. I will continue levofloxacin for possible tracheobronchitis. Patient had a chest x-ray with no focal pneumonia. COVID test is pending. Patient's saturations are 96% on room air at this time and I do not think she needs supplemental oxygen. 03/17 Patient states she feels essentially unchanged. She is better than when she presented but she still has a dry persistent cough. Her COVID test is negative. I have discontinued her O2 as long a today. patient has worsening wheezing today on exam and I will increase her albuterol and ipratropium nebulizers from q.6 to q.4 hours. I will continue her Solu-Medrol of 40 Q 6. Continue levaquin for now (day 3). Patient complains of nasal congestion And I will add Flonase nasal spray. She is immunocompromised as she is on skyrizi and otezla for her psoriasis and I will DC her otezla today. Next injection of skyrizi is scheduled for 03/26/21 Will follow with you. Subjective Date/time seen: 03/16/21 10:48 Interval history: 03/15 This is a new Pulmonary consultation for asthma 76-year-old with a history of psoriasis on skyrizi since 11/13 (next injection 03/26/21) and otesla for 1.5 years, asthma diagnosed at age 4 year for and has been on inhalers all her life. Most recently she is on albuterol p.r.n. which controls her asthma well. She states she can walk 2 miles over 45 minutes without any shortness of breath. She has been controlled using short-acting beta agonist 1 time per month and purging a symptom guidelines she has no daytime asthma symptoms, no nocturnal awakenings, uses her short-acting beta agonist once a month and has no activity limitations due to asthma She has never been intubated. Her last hospitalization was 6-7 years ago and she has had no outpatient exacerbations in the last year.. On 03/07 patient was visiting with her grandchild who had a cough and on 03/08 the patient started to have a cough. On 03/10 patient felt she had an asthma attack with wheezing, rattling in her chest and she tried to take or inhaler through the weekend. On 03/13 her inhaler was running out and she called her doctor's appointment but could not see them. She came to the ER and had a white blood cell count of 4.5 with 1.3% eosinophils, a BNP of 209 a chest x-ray with no active disease. Patient was initiated on Solu-Medrol, ipratropium, leave albuterol, and levofloxacin. 03/15 Today the patient tells me that she is improved than when she arrived to the hospital. Patient states she has 50% back to normal. Her phlegm is clear now and she can take deeper breaths. She denies any fever, rigors or chest pains. COVID test is pending. Room air saturations are 96%. 03/16 Patient states she feels essentially unchanged. She is better than when she presented but she still has a dry persistent cough. Her COVID test is negative. I have discontinued her O2 as long a today. patient has worsening wheezing today on exam and I will increase her albuterol and ipratropium nebulizers from q.6 to q.4 hours. I will continue her Solu-Medrol of
[2021-03-16 12:40] LABS: Glucose Point of Care 109 mg/dl (65-105)
[2021-03-16] MEDS: FLUTICASONE PROPIONATE 0.05% NA SPR 16 GM BTL (*BKC) 2 SPRAY NASAL (13:07)
[2021-03-16 17:52] LABS: Glucose Point of Care 137 mg/dl (65-105)
[2021-03-16 21:55] LABS: Glucose Point of Care 143 mg/dl (65-105)
[2021-03-17] VITALS (13 sets, daily range): BP systolic 125–143; BP diastolic 69–85; PULSE 76–100; RESP 18; TEMP 36.1–36.7; O2SAT 90–94
[2021-03-17] MEDS: methylPREDNISolone SOD SUCC 40 MG VIAL IV PUSH ×4 (00:16→17:23)
[2021-03-17] MEDS: IPRATROPIUM BR 0.02% INH SOLN 0.5 MG/2.5 ML VIAL INHALATION ×5 (01:35→21:11)
--- NOTE | 2021-03-17 05:34 | PCRCNOTE ---
Window of time for administration has passed. See next scheduled administration.
[2021-03-17 08:09] LABS: Glucose Point of Care 232 mg/dl (65-105)
[2021-03-17] MEDS: INSULIN ASPART (*BKC) 100 UNITS/ML SUB-Q (08:49)
[2021-03-17] MEDS: ENOXAPARIN 40 MG/0.4 ML SYRINGE SUB-Q (08:51)
[2021-03-17] MEDS: FLUTICASONE PROPIONATE 0.05% NA SPR 16 GM BTL (*BKC) 2 SPRAY NASAL (08:52)
[2021-03-17] MEDS: MELOXICAM 7.5 MG TABLET 15 MG PO (08:53)
[2021-03-17] MEDS: CITALOPRAM HYDROBROMIDE 10 MG TABLET PO (08:53)
[2021-03-17] MEDS: ATORVASTATIN 20 MG TABLET PO (08:54)
[2021-03-17] MEDS: FENOFIBRATE NANOCRYSTALLIZED 145 MG TABLET PO (08:54)
[2021-03-17] MEDS: FUROSEMIDE 20 MG TABLET PO (08:54)
[2021-03-17] MEDS: lisinopriL 20 MG TABLET PO (08:54)
[2021-03-17] MEDS: PANTOPRAZOLE 40 MG TABLET PO (08:54)
[2021-03-17] MEDS: CYANOCOBALAMIN 1,000 MCG TABLET 1000 MCG PO (08:54)
[2021-03-17] MEDS: TRIAMCINOLONE ACET 0.1% CREAM 15 GM TUBE 1 APPLIC TOPICAL (08:55)
--- NOTE | 2021-03-17 09:15 | PM.PNPUL ---
Progress Note: A&P Assessment and Plan (1) Exacerbation of asthma: Code(s): J45.901 - Unspecified asthma with (acute) exacerbation Status: Acute Assessment and Plan: Patient with a history of lifelong asthma and well controlled on p.r.n. beta agonist prior to developing a cough followed by an asthma exacerbation. Patient was exposed to a grandchild who had a URI prior to her exacerbation and may have a respiratory infection at this time. I see no evidence of fluid overload. She is immunocompromised as she is on skyrizi and otezla for her psoriasis. 03/15 Patient has currently improved on Solu-Medrol 40 mg IV q.6 (started 03/13). Patient still has end expiratory wheezes today and I will continue this dose today. PE I will also continue ipratropium 0.5 mg nebulization q.6 and leave albuterol 1.25 mg nebulization q.6 hours. Of note patient had shaking with albuterol. I will continue levofloxacin for possible tracheobronchitis. Patient had a chest x-ray with no focal pneumonia. COVID test is pending. Patient's saturations are 96% on room air at this time and I do not think she needs supplemental oxygen. 03/16 Patient states she feels essentially unchanged. She is better than when she presented but she still has a dry persistent cough. Her COVID test is negative. I have discontinued her O2 as long a today. patient has worsening wheezing today on exam and I will increase her albuterol and ipratropium nebulizers from q.6 to q.4 hours. I will continue her Solu-Medrol of 40 Q 6. Continue levaquin for now (day 3). Patient complains of nasal congestion And I will add Flonase nasal spray. She is immunocompromised as she is on skyrizi and otezla for her psoriasis and I will DC her otezla today. Next injection of skyrizi is scheduled for 03/26/21. 03/17 Patient tells me that she feels much better today. She states her cough is better and her shortness of breath is better. She slept well and is walking in the room. She states she is 80% back to normal. No wheezes on exam today. Room air saturations 91%. I will DC solumedrol and place on prednsione 50 mg PO Q day (Day 5 steroids, started 03/13). Continue albuterol and ipratropium nebulizers q.4 hours. Anticipate DC home tomorrow if stable on oral steroids If stable overnight, discharge on these pulmonary medications: Prednisone 50 mg PO Q day X 2 days (last dose 03/20) Levofloxacin 750 mg p.o. q.day X 2 days (last does 03/20) Symbicort 80/4.5 at 2 puffs BID with step down as toelrated per follow up with primary physician Rescue albuterol 2 puffs Q 4 hors PRN SOB and wheezing Will follow with you. Subjective Date/time seen: 03/17/21 09:15 Interval history: 03/15 This is a new Pulmonary consultation for asthma 76-year-old with a history of psoriasis on skyrizi since 11/13 (next injection 03/26/21) and otesla for 1.5 years, asthma diagnosed at age 4 year for and has been on inhalers all her life. Most recently she is on albuterol p.r.n. which controls her asthma well. She states she can walk 2 miles over 45 minutes without any shortness of breath. She has been controlled using short-acting beta agonist 1 time per month and purging a symptom guidelines she has no daytime asthma symptoms, no nocturnal awakenings, uses her short-acting beta agonist once a month and has no activity limitations due to asthma She has never been intubated. Her last hospitalization was 6-7 years ago and she has had no outpatient exacerbations in the last year.. On 03/07 patient was visiting with her grandchild who had a cough and on 03/08 the patient started to have a cough. On 03/10 patient felt she had an asthma attack with wheezing, rattling in her chest and she tried to take or inhaler through the weekend. On 03/13 her inhaler was running out and she called her doctor's appointment but could not see them. She came to the ER and had a white blood cell count of 4.5 with 1.3% eosinophils, a BNP of 209 a
[2021-03-17 10:55] LABS: Anion Gap 8 mmol/L (8-16); Blood Urea Nitrogen 37 mg/dL (7-17); Carbon Dioxide 26 mmol/L (22-30); Chloride 98 mmol/L (98-107); Estimated CRCL calculation 48 ml/min; Estimated Glomerular Filt Rate 54; Glucose 200 mg/dL (65-110); Potassium 4.6 mmol/L (3.4-5.0); Sodium 132 mmol/L (137-145)
[2021-03-17 12:23] LABS: Glucose Point of Care 118 mg/dl (65-105)
[2021-03-17] MEDS: ACETAMINOPHEN 325 MG TABLET 650 MG PO ×2 (12:45→22:45)
--- NOTE | 2021-03-17 13:58 | PM.IMPN ---
Progress Note: A&P Assessment and Plan (1) Exacerbation of asthma: Code(s): J45.901 - Unspecified asthma with (acute) exacerbation Status: Acute Assessment and Plan: Patient is a 76-year-old woman with a history of asthma, who came into the emergency room with worsening shortness of breath for the last 1 week. Symptoms were unable to be improved at home with her rescue inhaler, nebulizer treatments so she came in for further evaluation. in the emergency room she was given nebulizer treatments, IV Solu-Medrol,IV magnesium, but she was hypoxic so she was admitted into the hospital with an asthma exacerbation to continue on IV Solu-Medrol, DuoNeb treatments q.6 hours, and further evaluation and monitoring. The patient was able to be wean down on her oxygen and is now resting comfortably on room air but continues to have significant wheezing and S[place]. 03/17/21- Repeat CXR showed no acute cardiopulmonary disease. Ekg Tech, Dr. Aragon, evaluated the patient and recommended discontinuing Solu-medrol, placed on Prednisone 50 mg PO QD. Continue Duoneb treatments Q4hrs while here. If the patient is feeling better tomorrow can be discharged from his standpoint with his recommendations. ------Prednisone 50 mg PO Q day X 2 days (last dose 03/20) ------Levofloxacin 750 mg p.o. q.day X 2 days (last does 03/20) ------Symbicort 80/4.5 at 2 puffs BID with step down as toelrated per follow up with primary physician ------Rescue albuterol 2 puffs Q 4 hors PRN SOB and wheezing Patient is immunocompromised from skyrizi and otezla which she is on from her psoriasis, Dr. Aragon will DISCONTINUE otezla 03/16/21. Her, next injection of skyrizi is scheduled for 03/26/21. Continue monitoring. (2) Acute respiratory failure with hypoxia: Code(s): J96.01 - Acute respiratory failure with hypoxia Status: Acute Assessment and Plan: the patient was initially requiring 2 L of oxygen in the emergency room. At this time she is resting comfortably on room air. This is due to acute asthma exacerbation and ruling out COVID 19 COVID negative, ruled out On RA but still with significant wheezing and SCHOFIELD. Will need Home O2 evaluation when stable for discharge. Continue monitoring hypoxia levels and oxygenation during hospitalization. (3) Lactic acid increased: Code(s): E87.2 - Acidosis Status: Acute Assessment and Plan: The patient is here for asthma exacerbation, shortness of breath, wheezing. She was started on IV Levaquin due to COPD exacerbation and coverage for pneumonia. she does not look septic at this time with an elevated lactic acid level of 4.2. This could be due to albuterol. Albuterol has been found to have a rising lactic acid levels. She is not having any abdominal pain because I considered ischemic bowel. She is only having respiratory symptoms at this time and they are improving since her arrival and she is on room air at this time. At this time I will not workup lactic acid further unless she develops worsening symptoms. (4) Anxiety: Code(s): F41.9 - Anxiety disorder, unspecified Status: Acute Assessment and Plan: continue with p.r.nMae Ativan as the patient is anxious today. Continue with patient's Celexa (5) Gastroesophageal reflux disease: Qualifiers: Esophagitis presence: without esophagitis Qualified Code(s): K21.9 - Gastro-esophageal reflux disease without esophagitis Code(s): K21.9 - Gastro-esophageal reflux disease without esophagitis Status: Acute Assessment and Plan: continue with her pantoprazole (6) DEJA (obstructive sleep apnea): Code(s): G47.33 - Obstructive sleep apnea (
[2021-03-17 17:55] LABS: Glucose Point of Care 188 mg/dl (65-105)
[2021-03-17 22:54] LABS: Glucose Point of Care 262 mg/dl (65-105)
[2021-03-18] VITALS (7 sets, daily range): BP systolic 125; BP diastolic 82; PULSE 77–89; RESP 18–20; TEMP 36.4; O2SAT 92
[2021-03-18] MEDS: methylPREDNISolone SOD SUCC 40 MG VIAL IV PUSH ×2 (00:28→06:51)
[2021-03-18] MEDS: FLUTICASONE PROPIONATE 0.05% NA SPR 16 GM BTL (*BKC) 2 SPRAY NASAL (00:30)
[2021-03-18] MEDS: IPRATROPIUM BR 0.02% INH SOLN 0.5 MG/2.5 ML VIAL INHALATION ×3 (01:24→09:51)
[2021-03-18] MEDS: ACETAMINOPHEN 325 MG TABLET 650 MG PO ×2 (06:40→09:34)
[2021-03-18 06:52] LABS: Glucose Point of Care 170 mg/dl (65-105)
[2021-03-18 08:29] LABS: Glucose Point of Care 271 mg/dl (65-105)
--- NOTE | 2021-03-18 09:17 | PM.PNPUL ---
Progress Note: A&P Assessment and Plan (1) Exacerbation of asthma: Code(s): J45.901 - Unspecified asthma with (acute) exacerbation Status: Acute Assessment and Plan: Patient with a history of lifelong asthma and well controlled on p.r.n. beta agonist prior to developing a cough followed by an asthma exacerbation. Patient was exposed to a grandchild who had a URI prior to her exacerbation and may have a respiratory infection at this time. I see no evidence of fluid overload. She is immunocompromised as she is on skyrizi and otezla for her psoriasis. 03/15 Patient has currently improved on Solu-Medrol 40 mg IV q.6 (started 03/13). Patient still has end expiratory wheezes today and I will continue this dose today. I will also continue ipratropium 0.5 mg nebulization q.6 and leave albuterol 1.25 mg nebulization q.6 hours. Of note patient had shaking with albuterol. I will continue levofloxacin for possible tracheobronchitis. Patient had a chest x-ray with no focal pneumonia. COVID test is pending. Patient's saturations are 96% on room air at this time and I do not think she needs supplemental oxygen. 03/16 Patient states she feels essentially unchanged. She is better than when she presented but she still has a dry persistent cough. Her COVID test is negative. I have discontinued her O2 as long a today. patient has worsening wheezing today on exam and I will increase her albuterol and ipratropium nebulizers from q.6 to q.4 hours. I will continue her Solu-Medrol of 40 Q 6. Continue levaquin for now (day 3). Patient complains of nasal congestion And I will add Flonase nasal spray. She is immunocompromised as she is on skyrizi and otezla for her psoriasis and I will DC her otezla today. Next injection of skyrizi is scheduled for 03/26/21. 03/17 Patient tells me that she feels much better today. She states her cough is better and her shortness of breath is better. She slept well and is walking in the room. She states she is 80% back to normal. No wheezes on exam today. Room air saturations 91%. I will continue solumedrol and place on prednsione 50 mg PO Q day on morning (Day 5 steroids, started 03/13). Continue albuterol and ipratropium nebulizers q.4 hours. Anticipate DC home tomorrow if stable on oral steroids 03/18 Patient tells me she continues to improve and states she is 90% back to normal. Room air saturations 92%. No wheezes on exam. Patient feels she is stable to go home today. Suitable for discharge from pulmonary perspective on these pulmonary medications: Prednisone 50 mg PO Q day X 2 days (last dose 03/20) Levofloxacin 750 mg p.o. q.day X 2 days (last does 03/20) Symbicort 80/4.5 at 2 puffs BID with step down as tolerated per follow up with us in pulmonary clinic Rescue albuterol 2 puffs Q 4 hors PRN SOB and wheezing Follow up in pulmonary clinic in 4 weeks. I gave her our business card and informed our wire stitcher machine. Subjective Date/time seen: 03/18/21 09:17 Interval history: 03/15 This is a new Pulmonary consultation for asthma 76-year-old with a history of psoriasis on skyrizi since 11/13 (next injection 03/26/21) and otesla for 1.5 years, asthma diagnosed at age 4 year for and has been on inhalers all her life. Most recently she is on albuterol p.r.n. which controls her asthma well. She states she can walk 2 miles over 45 minutes without any shortness of breath. She has been controlled using short-acting beta agonist 1 time per month and purging a symptom guidelines she has no daytime asthma symptoms, no nocturnal awakenings, uses her short-acting beta agonist once a month and has no activity limitations due to asthma She has never been intubated. Her last hospitalization was 6-7 years ago and she has had no outpatient exacerbations in the last year.. On 03/07 patient was visiting with her grandchild who had a cough and on 03/08 the patient started to have a cough. On 03/10 patient felt she had an asthma a
[2021-03-18] MEDS: MELOXICAM 7.5 MG TABLET 15 MG PO (09:35)
[2021-03-18] MEDS: FUROSEMIDE 20 MG TABLET PO (09:35)
[2021-03-18] MEDS: INSULIN ASPART (*BKC) 100 UNITS/ML SUB-Q (09:36)
[2021-03-18] MEDS: FENOFIBRATE NANOCRYSTALLIZED 145 MG TABLET PO (09:36)
[2021-03-18] MEDS: CYANOCOBALAMIN 1,000 MCG TABLET 1000 MCG PO (09:36)
[2021-03-18] MEDS: PANTOPRAZOLE 40 MG TABLET PO (09:36)
[2021-03-18] MEDS: CITALOPRAM HYDROBROMIDE 10 MG TABLET PO (09:36)
[2021-03-18] MEDS: lisinopriL 20 MG TABLET PO (09:36)
[2021-03-18] MEDS: ATORVASTATIN 20 MG TABLET PO (09:36)
[2021-03-18] MEDS: ENOXAPARIN 40 MG/0.4 ML SYRINGE SUB-Q (09:37)
[2021-03-18] MEDS: predniSONE 20 MG TABLET 40 MG PO (09:48)
[2021-03-18] MEDS: TRIAMCINOLONE ACET 0.1% CREAM 15 GM TUBE 1 APPLIC TOPICAL (09:53)
[2021-03-18 09:54] LABS: Anion Gap 12 mmol/L (8-16); Blood Urea Nitrogen 48 mg/dL (7-17); Calcium 11.1 mg/dL (8.4-10.2); Carbon Dioxide 25 mmol/L (22-30); Chloride 95 mmol/L (98-107); Estimated CRCL calculation 44 ml/min; Estimated Glomerular Filt Rate 48; Glucose 258 mg/dL (65-110); Magnesium 1.9 mg/dL (1.6-2.3); Phosphorus 3.3 mg/dL (2.5-4.5); Potassium 4.7 mmol/L (3.4-5.0); Sodium 132 mmol/L (137-145)
[2021-03-18 10:07] LABS: Vitamin D 25 Hydroxy 69.9 ng/mL
[2021-03-18 10:12] LABS: Parathyroid Intact 80.7 pg/mL (7.5-53.5)
--- NOTE | 2021-03-18 10:29 | PM.DS ---
DS: Admitting Diagnosis Admitting Diagnosis Asthma exacerbation DS: Discharge Diagnosis Discharge Diagnosis (1) Exacerbation of asthma: Qualifiers: Asthma severity: severe Asthma persistence: persistent Qualified Code(s): J45.51 - Severe persistent asthma with (acute) exacerbation Code(s): J45.901 - Unspecified asthma with (acute) exacerbation Status: Acute Assessment and Plan: Patient is a 76-year-old woman with a history of asthma, who came into the emergency room with worsening shortness of breath for the last 1 week. Symptoms were unable to be improved at home with her rescue inhaler, nebulizer treatments so she came in for further evaluation. in the emergency room she was given nebulizer treatments, IV Solu-Medrol,IV magnesium, but she was hypoxic so she was admitted into the hospital with an asthma exacerbation to continue on IV Solu-Medrol, DuoNeb treatments q.6 hours, and further evaluation and monitoring. The patient was able to be wean down on her oxygen and is now resting comfortably on room air but continues to have significant wheezing and [place]. 03/17/21- Repeat CXR showed no acute cardiopulmonary disease. Application Penetration Tester, Dr. Aragon, evaluated the patient and recommended discontinuing Solu-medrol, placed on Prednisone 50 mg PO QD. Continue Duoneb treatments Q4hrs while here. Discharge home 03/18 on the following regimen: ------Prednisone 50 mg PO Q day X 2 days (last dose 03/20) ------Levofloxacin 750 mg p.o. q.day X 2 days (last does 03/20) ------Symbicort 80/4.5 at 2 puffs BID with step down as toelrated per follow up with primary physician ------Rescue albuterol 2 puffs Q 4 hors PRN SOB and wheezing Patient is immunocompromised from skyrizi and otezla which she is on from her psoriasis, Dr. Aragon DISCONTINUED otezla 03/16/21. Her, next injection of skyrizi is scheduled for 03/26/21. (2) Hyperparathyroidism: Code(s): E21.3 - Hyperparathyroidism, unspecified Status: Acute Assessment and Plan: patient was not aware of this issue or hypercalcemia she will discuss further with her primary physician discussed risk of osteoporosis, kidney stones (3) Acute respiratory failure with hypoxia: Code(s): J96.01 - Acute respiratory failure with hypoxia Status: Acute Assessment and Plan: the patient was initially requiring 2 L of oxygen in the emergency room. At this time she is resting comfortably on room air. This is due to acute asthma exacerbation and ruling out COVID 19 COVID negative, ruled out On RA but still with significant wheezing and SCHOFIELD. March 18 stable on room air (4) Lactic acid increased: Code(s): E87.2 - Acidosis Status: Acute Assessment and Plan: related to acute asthma exacerbation and resolved (5) Anxiety: Code(s): F41.9 - Anxiety disorder, unspecified Status: Acute Assessment and Plan: continue home regimen (6) Gastroesophageal reflux disease: Qualifiers: Esophagitis presence: without esophagitis Qualified Code(s): K21.9 - Gastro-esophageal reflux disease without esophagitis Code(s): K21.9 - Gastro-esophageal reflux disease without esophagitis Status: Acute Assessment and Plan: continue with her pantoprazole (7) DEJA (obstructive sleep apnea): Code(s): G47.33 - Obstructive sleep apnea (adult) (pediatric) Status: Acute Assessment and Plan: the patient lost 100 lb and states that she no longer uses her CPAP machine. (8) Hypercholesterolemia: Code(s): E78.00 - Pure hypercholesterolemia, unspecified Status: Acute Assessment
[2021-03-18 12:25] LABS: Glucose Point of Care 142 mg/dl (65-105)
--- NOTE | 2021-03-18 15:10 | PC.NURSE ---
Patient discharged and ambulated to private vehicle to discharge home at 1325. Discharge instructions discussed. Home medications returned. Scripts transmitted to pharmacy on file. All questions answered prior to discharge.
== END 2021-03-18 13:25 | disposition home or self-care (01) | DRG 202 ==
LOC: ANHED 11:32 → ANH3MED 13:17 → ANH3MEDSUR 03-18 10:49 → ANH3MED 03-21 12:25 → ANH3MEDSUR 03-21 12:25
PROVIDERS: Nurse Practitioner; Physician Assistant; Admitting Provider Internal Medicine; Emergency Provider Emergency Medicine; PCP Family Medicine; Visit Provider Internal Medicine
DX: J45.901 Unspecified asthma with (acute) exacerbation (principal); J96.01 Acute respiratory failure with hypoxia; E87.2 Acidosis; G47.33 Obstructive sleep apnea (adult) (pediatric); K21.9 Gastro-esophageal reflux disease without esophagitis; I10 Essential (primary) hypertension; F41.9 Anxiety disorder, unspecified; E78.00 Pure hypercholesterolemia, unspecified; E11.9 Type 2 diabetes mellitus without complications; E87.6 Hypokalemia; L40.9 Psoriasis, unspecified; Z20.822 Contact with and (suspected) exposure to COVID-19; E21.3 Hyperparathyroidism, unspecified
CPT/HCPCS: 36415; 71045; 80048; 80053; 82306; 82728; 82948; 83036; 83605; 83615; 83735; 83880; 83970; 84100; 84439; 84443; 84480; 85025; 85027; 85610; 85730; 86140; 93005; 94640; 96365; 96366; 96367; 96372; 96375; 96376; 97161; 97165; 99285; A9270; C9803; G0378; J1650; J1815; J1956; J2920; J2930; J3475; J7512; U0003; U0005

== ENCOUNTER 2021-03-27 14:51 | Emergency (ER) | payer MEDICARE, SELFPAY ==
--- NOTE | ~2021-03-27 | US_ITS ---
EXAMINATION: US venous doppler LE RT DATE: 03/27/2021 15:19 INDICATION: Right lower limb pain TECHNIQUE: Dowling scale images without and with compression and Doppler images of the right lower extre mity veins were obtained. COMPARISON: None FINDINGS: The right common femoral vein, profunda femoral vein, femoral vein, popliteal vein, peronea l trunk, posterior tibial veins, and greater saphenous vein are patent. IMPRESSION: 1. Patent right lower extremity veins. No evidence of deep venous thrombosis. Reviewed, dictated and finalized at location A.
[2021-03-27 14:53] VITALS: BP 142/86; PULSE 82; RESP 14; TEMP 37.1; O2SAT 98
--- NOTE | 2021-03-27 17:00 | ED.LOWEXIN ---
HPI - Extremity Injury (Lower) General Chief Complaint: Extremity Injury, Lower Stated Complaint: ? BLOOD CLOT R LEG Time Seen by Provider: 03/27/21 16:54 Source: patient Mode of arrival: ambulatory Limitations: no limitations History of Present Illness HPI Narrative: Patient is a 76 year old female who presents complaining of right lower extremity pain and swelling x 2 days. Patient reports recently admitted and discharged with URI. Patient reports edema to RLE. Reports pain with palpation. Patient denies injury. Denies shortness of breath or all other complaints at this time. Patient reports full range of motion. MD complaint: other (leg pain) Related Data Home Medications Medication Instructions Recorded Confirmed albuterol sulfate [Ventolin HFA] 2 puff INHALATION PRN PRN 10/08/19 03/13/21 cyanocobalamin (vitamin B-12) 1,000 mcg PO DAILY 10/08/19 03/13/21 furosemide 20 mg PO DAILY 10/08/19 03/13/21 fenofibrate 145 mg PO DAILY 05/18/20 03/13/21 meloxicam 15 mg PO DAILY 05/18/20 03/13/21 mometasone 1 applic TOPICAL DAILY 05/18/20 03/13/21 atorvastatin 20 mg PO DAILY 03/13/21 03/13/21 citalopram 10 mg PO DAILY 03/13/21 03/13/21 lisinopril 20 mg PO DAILY 03/13/21 03/13/21 pantoprazole 40 mg PO QAM 03/13/21 03/13/21 Allergies Allergy/AdvReac Type Severity Reaction Status Date / Time No Known Allergies Allergy Verified 03/13/21 14:46 Review of Systems Review of Systems: CONSTITUTIONAL: Denies fever, chills, or sweats. EYES: Denies visual changes, redness, or discharge. ENT: Denies rhinorrhea, congestion, sore throat, or otalgia. CARDIOVASCULAR: Denies chest pain, palpitations, or edema. RESPIRATORY: Denies cough or dyspnea. GASTROINTESTINAL: Denies abdominal pain, nausea, vomiting, or diarrhea. GENITOURINARY: Denies dysuria or hematuria. SKIN: Denies rash or itching. MUSCULOSKELETAL: Right leg pain and swelling NEUROLOGIC: Denies headache, numbness, dizziness, or weakness. PSYCHIATRIC: Denies anxiety or depression. 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 patient is a lifelong nonsmoker. She does not use any alcohol marijuana illicit drugs. The patient desires to be a full code. Her oldest son is the durable power commercial attorney for healthcare. Code status: Full code Surrogate decision maker: Oldest son Smoking status: Never smoker Alcohol intake: never Substance use: never Substance use type: does not use Additional living arrangements comments: She lives in her own home. She has been since 1989 Spiritual care concerns: No Agree to blood products: Yes Comments At the time of signature, I have reviewed and agree with nursing past medical, surgical, social, and family history unless otherwise noted. Please see nursing chart for further information. There is no releva
[2021-03-27 18:02] VITALS: BP 128/76; PULSE 78; RESP 16; O2SAT 98
== END 2021-03-27 18:00 | disposition home or self-care (01) ==
LOC: ANHED 17:54
PROVIDERS: Emergency Provider Nurse Practitioner; PCP Family Medicine
DX: R60.0 Localized edema (principal); F41.9 Anxiety disorder, unspecified; J45.909 Unspecified asthma, uncomplicated; E11.9 Type 2 diabetes mellitus without complications; I10 Essential (primary) hypertension; K57.90 Diverticulosis of intestine, part unspecified, without perforation or abscess without bleeding; K21.9 Gastro-esophageal reflux disease without esophagitis; E78.00 Pure hypercholesterolemia, unspecified; G47.33 Obstructive sleep apnea (adult) (pediatric); Z96.652 Presence of left artificial knee joint; Z85.42 Personal history of malignant neoplasm of other parts of uterus; Z86.010 Personal history of colon polyps; Z79.84 Long term (current) use of oral hypoglycemic drugs
CPT/HCPCS: 93971; 99284

== ENCOUNTER 2021-09-13 13:19 | Outpatient (CLI) | payer MEDICARE, SELFPAY ==
--- NOTE | ~2021-09-13 | MM_ITS ---
EXAMINATION: MM screening luca BI w hailey HISTORY: Screening TECHNIQUE: Craniocaudal and mediolateral oblique 3-D tomosynthesis images were obtained and synthetic 2-D images were generated. CAD analysis was submitted and interpreted. COMPARISON: Comparison to multiple prior studies sequentially, with oldest reviewed study dated 06/26. BREAST PARENCHYMAL COMPOSITION: Breast composed of scattered areas of fibroglandular density FINDINGS: There is no evidence of suspicious mass, calcification, or architectural distortion to sugg est malignancy in either breast. There has been no suspicious interval change. IMPRESSION: 1. No mammographic evidence of malignancy. 2. Recommend routine screening mammography in one year. BI-RADS Category 1: Negative Reviewed, dictated and finalized at location A. [employer]CK[employer]ER
== END 2021-09-13 13:20 | disposition home or self-care (01) ==
LOC: ANHIMG 13:22
PROVIDERS: PCP Student in an Organized Health Care Education/Training Program; Visit Provider Student in an Organized Health Care Education/Training Program
DX: Z12.31 Encounter for screening mammogram for malignant neoplasm of breast (principal)
CPT/HCPCS: 77063; 77067

== ENCOUNTER 2021-11-07 12:16 | Outpatient (CLI) | payer MEDICARE, SELFPAY ==
[2021-11-07 13:58] LABS: Alanine Aminotransferase 41 U/L (4-35); Albumin Level 4.2 g/dL (3.5-5.1); Alkaline Phosphatase 62 U/L (38-126); Anion Gap 7 mmol/L (8-16); Aspartate Amino Transferase 50 U/L (14-36); Bilirubin,Total 1.6 mg/dL (0.2-1.3); Blood Urea Nitrogen 26 mg/dL (7-17); Calcium 10.2 mg/dL (8.4-10.2); Carbon Dioxide 33 mmol/L (22-30); Chloride 98 mmol/L (98-107); Estimated Glomerular Filt Rate > 60; Glucose 155 mg/dL (65-110); Potassium 3.9 mmol/L (3.4-5.0); Sodium 138 mmol/L (137-145)
[2021-11-07 13:59] LABS: Basophils Percent Auto 0.3 % (0.2-1.2); Eosinophils Absolute Auto 0.1 K/mm3 (0-0.3); Eosinophils Percent Auto 3.1 % (0-4.4); Hematocrit 39.6 % (37.0-47.0); Hemoglobin 13.4 g/dL (12.0-15.0); Immature Granulocyte Absolute 0.01 K/mm3 (0.00-0.031); Immature Granulocyte Percent A 0.3 % (0-0.5); Lymphocytes Absolute Auto 1.03 K/mm3 (0.9-3.2); Lymphocytes Percent Auto 26.4 % (18.3-44.2); Mean Corpuscular HGB Conc 33.8 g/dl (32-36); Mean Corpuscular Hemoglobin 31.7 pg (26-34); Mean Corpuscular Volume 93.6 fl (80-100); Mean Platelet Volume 11.9 fl (7.4-10.4); Monocytes Absolute Auto 0.4 K/mm3 (0.1-0.6); Monocytes Percent Auto 9.2 % (2.6-8.5); Neutrophils Absolute Auto 2.4 K/mm3 (1.3-6.7); Neutrophils Percent Auto 60.7 % (45.5-73.1); Platelet Count Result 169 k/mm3 (150-375); Red Blood Count 4.23 M/mm3 (4.2-5.4); Red Cell Distribution Width 12.9 % (11.5-14.5); White Blood Count 3.9 K/mm3 (4.5-10.0)
[2021-11-09 15:17] LABS: NIL 0.13 IU/mL; Quantiferon TB Plus, 1T NEGATIVE (NEGATIVE); TB1-NIL 0.13 IU/mL; TB2-NIL 0.13 IU/mL
== END 2021-11-07 12:17 | disposition home or self-care (01) ==
PROVIDERS: PCP Student in an Organized Health Care Education/Training Program
DX: Z79.899 Other long term (current) drug therapy (principal)
CPT/HCPCS: 36415; 80053; 85025; 86480

== ENCOUNTER 2021-12-29 14:46 | Outpatient (CLI) | payer MEDICARE, SELFPAY ==
[2021-12-29 15:47] LABS: Basophils Percent Auto 0.3 % (0.2-1.2); Eosinophils Absolute Auto 0.1 K/mm3 (0-0.3); Eosinophils Percent Auto 3.6 % (0-4.4); Hematocrit 41.3 % (37.0-47.0); Hemoglobin 13.8 g/dL (12.0-15.0); Immature Granulocyte Absolute 0.01 K/mm3 (0.00-0.031); Immature Granulocyte Percent A 0.3 % (0-0.5); Lymphocytes Percent Auto 28.3 % (18.3-44.2); Mean Corpuscular HGB Conc 33.4 g/dl (32-36); Mean Corpuscular Hemoglobin 31.5 pg (26-34); Mean Corpuscular Volume 94.3 fl (80-100); Mean Platelet Volume 12.2 fl (7.4-10.4); Monocytes Absolute Auto 0.3 K/mm3 (0.1-0.6); Neutrophils Absolute Auto 2.3 K/mm3 (1.3-6.7); Neutrophils Percent Auto 59.5 % (45.5-73.1); Platelet Count Result 173 k/mm3 (150-375); Red Blood Count 4.38 M/mm3 (4.2-5.4); Red Cell Distribution Width 12.4 % (11.5-14.5); White Blood Count 3.9 K/mm3 (4.5-10.0)
[2021-12-29 17:09] LABS: Alanine Aminotransferase 34 U/L (4-35); Albumin Level 4.2 g/dL (3.5-5.1); Alkaline Phosphatase 67 U/L (38-126); Anion Gap 5 mmol/L (8-16); Aspartate Amino Transferase 48 U/L (14-36); Bilirubin,Total 1.2 mg/dL (0.2-1.3); Blood Urea Nitrogen 30 mg/dL (7-17); Calcium 9.9 mg/dL (8.4-10.2); Carbon Dioxide 30 mmol/L (22-30); Chloride 102 mmol/L (98-107); Estimated Glomerular Filt Rate 48; Glucose 125 mg/dL (65-110); Potassium 4.1 mmol/L (3.4-5.0); Sodium 137 mmol/L (137-145)
== END 2021-12-29 14:47 | disposition home or self-care (01) ==
LOC: ANHLAB 14:53
PROVIDERS: PCP Student in an Organized Health Care Education/Training Program
DX: Z79.899 Other long term (current) drug therapy (principal)
CPT/HCPCS: 36415; 80053; 85025

== ENCOUNTER → 2022-04-26 12:35 | Outpatient (CLI) | payer MEDICARE, SELFPAY ==
--- NOTE | ~2022-04-26 | CT_ITS ---
EXAMINATION: CT diagnostic chest w con DATE: 04/26/2022 13:12 INDICATION: Soft tissue mass of the chest TECHNIQUE: Computed tomography (CT) of the chest was performed with 75 CC Omnipaque 350 intravenous c ontrast. Automated exposure control and iterative reconstruction technique were employed. Exam dose: 434.53 mGy-cm total exam DLP. COMPARISON: 03/17/2021 portable AP chest FINDINGS: Approximately 11.7 mm hypoenhancing lesion of the lower aspect of the right lobe of the thy roid gland. No hilar or mediastinal mass lesion or lymphadenopathy. Normal heart size. No thoracic aortic aneurysm or dissection. There is aortic and coronary artery calcification. No pericardial or pleural effusion. Normal morphology of the adrenal glands. There are prominent discoid densities consistent with discoid atelectasis or scarring in the medial r ight upper lobe, middle lobe, lingula and left lower lobe. No pulmonary infiltrate or consolidation o r suspicious pulmonary mass lesion is detected. Mild bilateral apical scarring. Degenerative disc disease at C5-6 and C6-7. Diffuse idiopathic skeletal hyperostosis of the thoracic spine. No suspicious osteolytic or osteoblastic lesions. IMPRESSION: Bilateral discoid atelectasis and/or scarring Reviewed, dictated and finalized at Location [facility]. Reviewed, dictated and finalized at location B.
[2022-04-26 13:02] LABS: Estimated Glomerular Filt Rate 54
== END ==
PROVIDERS: PCP Student in an Organized Health Care Education/Training Program; Visit Provider Registered Nurse
DX: M79.89 Other specified soft tissue disorders (principal)
CPT/HCPCS: 71260; Q9967

== ENCOUNTER → 2022-05-25 10:40 | Outpatient (CLI) | payer MEDICARE, SELFPAY ==
--- NOTE | ~2022-05-25 | US_ITS ---
US thyroid INDICATION: Thyroid nodules TECHNIQUE: Real-time sonographic images of the thyroid gland were obtained. COMPARISON: No prior studies for comparison. FINDINGS: The right thyroid lobe measures 4.4 x 2.2 x 1.7 cm. The left thyroid lobe measures 4 x 1.6 x 1.3 cm. There is mildly heterogeneous thyroid echotexture. There are multiple nodules in the right thyroid gland, largest dominant nodule measuring 1.4 x 1.2 x 0.9 cm which is solid, very hypoechoic, wider than tall, smoothly marginated without echogenic foci, TR 4. In the left lobe there is a 5 mm cyst. IMPRESSION: 1. Dominant right thyroid nodule measuring up to 1.4 cm with characteristics compatible with TR clas sification 4. This does not meet sonographic criteria for biopsy. Follow-up thyroid ultrasound in 12 months recommended. Reviewed, dictated and finalized at location B. IMPRESSION: 1. Dominant right thyroid nodule measuring up to 1.4 cm with characteristics c ompatible with TR classification 4. This does not meet sonographic criteria for biopsy. Follow-up thyroid ultrasound in 12 months recommended.
== END ==
PROVIDERS: PCP Student in an Organized Health Care Education/Training Program; Visit Provider Student in an Organized Health Care Education/Training Program
DX: E04.1 Nontoxic single thyroid nodule (principal)
CPT/HCPCS: 76536

== ENCOUNTER 2022-07-04 12:56 | Outpatient (CLI) | payer MEDICARE, SELFPAY ==
--- NOTE | ~2022-07-04 | DEXA_ITS ---
Bone Density Report Name: SHARYN DILLON Age: 77 Sex: Female Ethnicity: White Date of : 1945 Indication: postmenopausal; screening for osteoporosis; prior fracture; cancer; asthma or emphysema; hysterectomy; Referring Provider: ZENA, SHANTELL Study: Bone densitometry was performed. Exam Date: July 04, 2022 Accession number: [id number] Bone Density: Region BMD T-score Z-score Classification AP Spine(L1-L4) 0.933 -1.0 1.4 Normal Femoral Neck (Left) 0.588 -2.4 -0.2 Osteopenia Total Hip (Left) 0.721 -1.8 0.0 Osteopenia Femoral Neck (Right) 0.595 -2.3 -0.1 Osteopenia Total Hip (Right) 0.711 -1.9 0.0 Osteopenia Total Hip Mean 0.716 -1.9 0.0 Osteopenia World Health Organization criteria for BMD impression classify patients as: Normal (T-score at or above -1.0), Osteopenia (T-score between -1.0 and -2.5), or Osteoporosis (T-score at or below -2.5). 10-year Fracture Risk(1): Major Osteoporotic Fracture 23% Hip Fracture 6.3% Reported Risk Factors: [place] (), Neck BMD=0.588, BMI=31.8, previous fracture (1) FRAX(R) Version 3.08. Fracture probability calculated for an untreated patient. Fracture probability may be lower if the patient has received treatment. Clinical Information Provided by Patient: Has had a low trauma fracture Has the following medical conditions: Asthma or Emphysema, Cancer, Hysterectomy Patient maximum height was 61.5 Menopause Age: 51 No regular weight bearing exercise Drinks caffeinated beverages Onset of menses at age 16 Number of children 0 Missed period for more than 6 months in a row Impression: The patient has low bone mass, based on the Left Femoral Neck T-score. The patient has an estimated ten-year risk of hip fracture of 6.3% and an estimated ten-year risk of major fracture of 23%, based on the WHO FRAX algorithm. The patient has risk factors, including: previous fracture. Discussion: BONE DENSITY IS LOW AT ONE OR MORE SKELETAL SITES. THE PATIENT'S BMD AND CLINICAL RISK FACTORS CONTRIBUTE TO THIS PATIENT'S HIGH RISK OF FRACTURE. This patient's lowest T-score is low at one or more skeletal sites. It meets the World Health Organization's (WHO) criteria for ?low bone mass? (T-score between -1.0 and -2.5). The patient's 10-year risk of hip fracture and 10 year risk of a major osteoporotic fracture as calculated by FRAX exceeds the threshold where pharmacological therapy is recommended by the National Osteoporosis Foundation (NOF). However, all treatment decisions require clinical judgment and consideration of individual patient factors, including patient preferences, comorbidities, previous drug use, risk factors not captured in the FRAX model (e.g., frailty, falls, vitamin D deficiency, increased bone turnover, interval significant de
== END 2022-07-04 12:57 | disposition home or self-care (01) ==
PROVIDERS: PCP Student in an Organized Health Care Education/Training Program; Visit Provider Student in an Organized Health Care Education/Training Program
DX: Z78.0 Asymptomatic menopausal state (principal); M85.852 Other specified disorders of bone density and structure, left thigh; M85.851 Other specified disorders of bone density and structure, right thigh
CPT/HCPCS: 77080

== ENCOUNTER 2022-11-13 15:05 | Outpatient (CLI) | payer MEDICARE, SELFPAY ==
--- NOTE | ~2022-11-13 | MM_ITS ---
EXAMINATION: MM screening [facility] BI w hailey HISTORY: Screening TECHNIQUE: Craniocaudal and mediolateral oblique 3-D tomosynthesis images were obtained and synthetic 2-D images were generated. CAD analysis was submitted and interpreted. COMPARISON: Comparison to multiple prior studies sequentially, with oldest reviewed study dated 06/26. BREAST PARENCHYMAL COMPOSITION: Breast composed of scattered areas of fibroglandular density FINDINGS: There is no evidence of suspicious mass, calcification, or architectural distortion to sugg est malignancy in either breast. There has been no suspicious interval change. IMPRESSION: 1. No mammographic evidence of malignancy. 2. Recommend routine screening mammography in one year. BI-RADS Category 1: Negative Reviewed, dictated and finalized at location A.
== END 2022-11-13 15:06 | disposition home or self-care (01) ==
LOC: ANHIMG 15:07
PROVIDERS: PCP Student in an Organized Health Care Education/Training Program; Visit Provider Student in an Organized Health Care Education/Training Program
DX: Z12.31 Encounter for screening mammogram for malignant neoplasm of breast (principal)
CPT/HCPCS: 77063; 77067

== ENCOUNTER → 2023-03-14 09:43 | Outpatient (CLI) | payer MEDICARE, SELFPAY ==
--- NOTE | ~2023-03-14 | US_ITS ---
Corrected Report Correction to Ordering Site 03/14/2023 Alicia Limited Abdominal Sonogram: Real-time sonographic imaging of the right upper quadrant was performed. Clinical History: Abnormal liver enzymes Findings: The liver appears mildly heterogeneous, with no evidence of mass lesion or bile duct dilatation. Main portal vein demonstrates normal direction of flow. The gallbladder is well distended, and appears normal with no evidence of gallstone or wall thickening. The common bile duct measures 5 mm. The visualized pancreas, aorta, and IVC are unremarkable. Impression: Questionable fatty infiltration of liver or other chronic liver disease. Reviewed, dictated and finalized at location . COSMED
== END ==
PROVIDERS: PCP Student in an Organized Health Care Education/Training Program; Visit Provider Student in an Organized Health Care Education/Training Program
DX: R74.8 Abnormal levels of other serum enzymes (principal)
CPT/HCPCS: 76705

== ENCOUNTER 2023-04-18 11:56 | Outpatient (CLI) | payer MEDICARE, SELFPAY ==
[2023-04-18 13:49] LABS: Basophils Percent Auto 0.3 % (0.2-1.2); Eosinophils Absolute Auto 0.1 K/mm3 (0-0.3); Eosinophils Percent Auto 2.7 % (0-4.4); Hematocrit 36.6 % (37.0-47.0); Immature Granulocyte Absolute 0.01 K/mm3 (0.00-0.031); Immature Granulocyte Percent A 0.3 % (0-0.5); Lymphocytes Percent Auto 21.6 % (18.3-44.2); Mean Corpuscular HGB Conc 32.8 g/dl (32-36); Mean Corpuscular Hemoglobin 31.6 pg (26-34); Mean Corpuscular Volume 96.3 fl (80-100); Mean Platelet Volume 12.2 fl (7.4-10.4); Monocytes Absolute Auto 0.3 K/mm3 (0.1-0.6); Monocytes Percent Auto 6.8 % (2.6-8.5); Neutrophils Absolute Auto 2.5 K/mm3 (1.3-6.7); Neutrophils Percent Auto 68.3 % (45.5-73.1); Platelet Count Result 119 k/mm3 (150-375); Red Cell Distribution Width 13.2 % (11.5-14.5); White Blood Count 3.7 K/mm3 (4.5-10.0)
[2023-04-18 14:49] LABS: Iron 129 ug/dL (37-170)
[2023-04-18 14:59] LABS: Percent Iron Saturation 29 % (20-50)
[2023-04-21 17:23] LABS: GGT 64 U/L (3-65)
[2023-04-23 04:42] LABS: Ceruloplasmin 28 mg/dL (18-53)
[2023-04-23 23:10] LABS: Actin Antibody (IgG) 30 U (<20)
== END 2023-04-18 11:57 | disposition home or self-care (01) ==
PROVIDERS: PCP Student in an Organized Health Care Education/Training Program; Visit Provider Nurse Practitioner Family
DX: K21.9 Gastro-esophageal reflux disease without esophagitis (principal); E11.9 Type 2 diabetes mellitus without complications; R74.8 Abnormal levels of other serum enzymes
CPT/HCPCS: 36415; 82104; 82390; 82728; 82977; 83540; 83550; 85025; 85610; 86038; 86364

== ENCOUNTER 2023-05-27 10:51 | Outpatient (CLI) | payer MEDICARE, SELFPAY ==
[2023-05-29 12:34] LABS: Hepatitis A Antibody Total Nonreactive (Nonreactive)
[2023-05-30 05:18] LABS: LKM 1 Antibody <=20.0 U (<=20.0)
[2023-05-31 00:29] LABS: Mitochondrial (M2) Ab (IgG) <=20.0 U (<=20.0)
[2023-06-03 13:47] LABS: ALT 34 U/L (6-29); Alpha-2-Macroglobulin 224 mg/dL (106-279); Apolipoprotein A1 128 mg/dL (101-198); Fibrosis Score 0.69; Fibrosis Stage F3; GGT 58 U/L (3-65); Haptoglobin 47 mg/dL (43-212); Necroinflammat Act Grade A0-A1; Total Bilirubin 0.7 mg/dL (0.2-1.2)
== END 2023-05-27 10:52 | disposition home or self-care (01) ==
PROVIDERS: PCP Student in an Organized Health Care Education/Training Program; Visit Provider Nurse Practitioner Family
DX: R74.8 Abnormal levels of other serum enzymes (principal)
CPT/HCPCS: 36415; 81596; 83520; 86376; 86708

== ENCOUNTER → 2023-06-14 11:45 | Outpatient (CLI) | payer MEDICARE, SELFPAY ==
--- NOTE | ~2023-06-14 | US_ITS ---
US thyroid INDICATION: Thyroid nodules. TECHNIQUE: Real-time sonographic images of the thyroid gland were obtained. COMPARISON: Ultrasound dated 05/25/2022 FINDINGS: The thyroid gland is diffusely enlarged. Thyroid echotexture is heterogeneous. Right lobe m easures 4.1 x 2.1 x 2 cm. Left lobe measures 4 x 2.2 x 1.9 cm. Isthmus measures 4 mm. There are multi ple ill-defined thyroid masses. Largest discrete mass in the right thyroid lobe is mostly solid, hypo echoic, wider than tall, smoothly marginated with punctate echogenic foci measuring 1 cm, TR 5. This was not seen on prior examination allowing for differences of technique. There is a 6 mm cyst of the right lobe. Left lobe is diffusely heterogeneous. There is a heterogeneous mass of the left lobe omer uring 1.7 x 1.5 x 1.2 cm. This mass is solid, hypoechoic, taller than wide, ill-defined margins witho ut echogenic foci, TR 5. IMPRESSION: 1. Abnormal bilateral thyroid masses which meet sonographic criteria for biopsy. Fine-needle aspirat ion recommended for dominant bilateral thyroid nodules. Reviewed, dictated and finalized at location A. IMPRESSION: 1. Abnormal bilateral thyroid masses which meet sonographic criteria for biops y. Fine-needle aspiration recommended for dominant bilateral thyroid nodules.
== END ==
PROVIDERS: PCP Student in an Organized Health Care Education/Training Program; Visit Provider Student in an Organized Health Care Education/Training Program
DX: E04.1 Nontoxic single thyroid nodule (principal)
CPT/HCPCS: 76536

== ENCOUNTER 2023-07-23 12:36 | Outpatient (CLI) | payer MEDICARE, SELFPAY ==
--- NOTE | ~2023-07-23 | US_ITS ---
EXAMINATION: 1. US FNA w image guidance 2. US FNA additional DATE: 07/23/2023 14:12 INDICATION: Multinodular goiter. TECHNIQUE: The procedure and its benefits and risks were discussed with the patient. Risks specifically discusse d included bleeding. The patient verbalized understanding of the risks and agreed to proceed. The nec k was prepped and draped in the usual sterile manner. 1% lidocaine was used for local anesthesia. 6 passes were made with a 25G needle into the lesion in right thyroid lobe under ultrasound guidance. 6 passes were made with a 25-gauge needle into the lesion in left thyroid lobe under ultrasound carlos nce. There were no immediate complications. FINDINGS: Grayscale ultrasound images demonstrate needles advanced into an 11 mm nodule in right thyroid lobe f or biopsy. Grayscale ultrasound images demonstrate needles advanced into a 17 mm nodule in left thyro id lobe. IMPRESSION: 1. Ultrasound-guided fine needle aspiration of a right thyroid nodule. 2. Ultrasound-guided fine-needle aspiration of a left thyroid nodule. Reviewed, dictated and finalized at location A. 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 Ultrasound-guided fine needle aspiration of a right thyroid nodule. 2. Ultrasound-guided fine-needle aspiration of a left thyroid nodule.
== END 2023-07-23 12:37 | disposition home or self-care (01) ==
PROVIDERS: PCP Student in an Organized Health Care Education/Training Program; Visit Provider Otolaryngology
DX: E04.2 Nontoxic multinodular goiter (principal)
CPT/HCPCS: 10005; 10006; 88173; 88305

== ENCOUNTER 2023-11-21 13:48 | Outpatient (CLI) | payer MEDICARE, SELFPAY ==
[2023-11-21 15:30] LABS: INR 1.2; Prothrombin Time 15.9 Seconds (11.1-14.7)
[2023-11-21 15:32] LABS: Hematocrit 33.3 % (37.0-47.0); Hemoglobin 10.8 g/dL (12.0-15.0); Mean Corpuscular HGB Conc 32.4 g/dl (32-36); Mean Corpuscular Volume 98.5 fl (80-100); Platelet Count Result 105 k/mm3 (150-375); Red Blood Count 3.38 M/mm3 (4.2-5.4); Red Cell Distribution Width 15.8 % (11.5-14.5); White Blood Count 3.1 K/mm3 (4.5-10.0)
[2023-11-21 15:33] LABS: Alanine Aminotransferase 43 U/L (6-35); Albumin Level 3.9 g/dL (3.5-5.1); Alkaline Phosphatase 82 U/L (38-126); Anion Gap 6 mmol/L (4-12); Aspartate Amino Transferase 65 U/L (14-36); Bilirubin,Total 1.6 mg/dL (0.2-1.3); Blood Urea Nitrogen 24 mg/dL (7-17); Calcium 10.1 mg/dL (8.4-10.2); Carbon Dioxide 30 mmol/L (22-30); Chloride 104 mmol/L (98-107); Estimated Glomerular Filt Rate > 60; Glucose 128 mg/dL (65-110); Potassium 3.5 mmol/L (3.4-5.0); Sodium 140 mmol/L (137-145)
[2023-11-21 15:40] LABS: Immunoglobulin G 981 mg/dL (700-1600)
== END 2023-11-21 13:49 | disposition home or self-care (01) ==
LOC: ANHLAB 13:54
PROVIDERS: PCP Student in an Organized Health Care Education/Training Program; Visit Provider Nurse Practitioner Family
DX: R89.9 Unspecified abnormal finding in specimens from other organs, systems and tissues (principal); R74.8 Abnormal levels of other serum enzymes; K76.0 Fatty (change of) liver, not elsewhere classified; J45.20 Mild intermittent asthma, uncomplicated
CPT/HCPCS: 36415; 80053; 82784; 85027; 85610; 86364

== ENCOUNTER 2023-12-05 12:52 | Outpatient (CLI) | payer MEDICARE, SELFPAY ==
--- NOTE | ~2023-12-05 | CT_ITS ---
EXAMINATION: CT abdomen pelvis wo/w con DATE: 12/05/2023 13:24 INDICATION: Unspecified cirrhosis of liver. TECHNIQUE: Computed tomography (CT) of the abdomen and pelvis was performed without and with 100 mL O mnipaque 350 intravenous contrast. Automated exposure control and iterative reconstruction technique were employed. The dose-length product was 1478.03 mGy-cm. COMPARISON: None. FINDINGS: The visualized portions of the lung bases demonstrate mild atelectasis. There is a trace ri ght pleural effusion. The heart size is normal. There are coronary artery calcifications. No pericard ial effusion. The liver demonstrates surface nodularity, consistent with cirrhosis. There are changes of cholecystectomy. The spleen is normal in size. There are cysts in the spleen measuring up to 8 mm . The pancreas and adrenal glands are normal. There is cortical thinning of the kidneys. There are cy sts in the kidneys measuring up to 11 mm on the right. There is diverticulosis of the colon without e vidence of diverticulitis. The appendix is normal. Gastric varices are noted. There are no pathologic ally enlarged lymph nodes. There is a small volume of ascites. There is mild lumbar spondylosis. Ther e are bridging endplate osteophytes at multiple levels in the thoracic spine, consistent with diffuse idiopathic skeletal hyperostosis (DISH). IMPRESSION: 1. Cirrhosis of the liver with portal venous hypertension. 2. Small volume of ascites. Reviewed, dictated and finalized at location A.
[2023-12-05 20:04] LABS: Iron 126 ug/dL (37-170)
[2023-12-05 20:14] LABS: Percent Iron Saturation 29 % (20-50)
[2023-12-05 21:38] LABS: Folic Acid 14.4 ng/mL (2.76->20)
== END 2023-12-05 12:53 | disposition home or self-care (01) ==
LOC: ANHIMG 12:57
PROVIDERS: PCP Student in an Organized Health Care Education/Training Program; Visit Provider Nurse Practitioner Family
DX: K74.69 Other cirrhosis of liver (principal); R18.8 Other ascites
CPT/HCPCS: 36415; 74178; 82607; 82728; 82746; 83540; 83550; Q9967

== ENCOUNTER 2024-01-06 14:58 | Outpatient (CLI) | payer MEDICARE, SELFPAY ==
--- NOTE | ~2024-01-06 | MM_ITS ---
EXAMINATION: MM screening [facility] BI w hailey HISTORY: Screening mammogram TECHNIQUE: Craniocaudal and mediolateral oblique 3-D tomosynthesis images were obtained and synthetic 2-D images were generated. CAD analysis was submitted and interpreted. COMPARISON: 11/13/2022, 09/13/2021 bilateral screening mammogram examinations BREAST PARENCHYMAL COMPOSITION: There are scattered areas of fibroglandular density. FINDINGS: There is no evidence of suspicious mass, calcification, or architectural distortion to sugg est malignancy in either breast. There has been no suspicious interval change. IMPRESSION: 1. No mammographic evidence of malignancy. 2. Recommend routine screening mammography in one year. BI-RADS Category 1: Negative Reviewed, dictated and finalized at location A.
== END 2024-01-06 14:59 | disposition home or self-care (01) ==
LOC: ANHIMG 15:01
PROVIDERS: PCP Student in an Organized Health Care Education/Training Program; Visit Provider Student in an Organized Health Care Education/Training Program
DX: Z12.31 Encounter for screening mammogram for malignant neoplasm of breast (principal)
CPT/HCPCS: 77063; 77067

== ENCOUNTER 2024-01-24 12:07 | Emergency (ER) | payer MEDICARE, SELFPAY ==
--- NOTE | ~2024-01-24 | CT_ITS ---
EXAMINATION: CT facial & cervical spine wo DATE: 01/24/2024 12:51 INDICATION: Head injury. TECHNIQUE: Computed tomography (CT) of the maxillofacial region and cervical spine was performed with out intravenous contrast. Automated exposure control and iterative reconstruction technique were empl oyed. The dose-length product was 505.41 mGy-cm. COMPARISON: None FINDINGS: MAXILLOFACIAL CT: There is a right frontal scalp hematoma. There is soft tissue swelling in the periorbital regions. Th ere are likely changes of ocular lens replacement surgeries. There is mild mucosal thickening in left frontal sinus and left maxillary sinus. The mastoid air cells are normal. CERVICAL SPINE CT: There is a small right pleural effusion. There is 12 degrees levoscoliosis of the cervicothoracic spi ne. There is mild chronic height loss of C7 and T1 vertebral bodies. There is moderately decreased di sc height at C5-C6 and severely decreased disc height at C6-C7. The following disc levels are specifi florentino discussed: C2-C3: There is no uncovertebral joint osteoarthritis. There is severe bilateral facet joint osteoart hritis. There is mild left neural foraminal stenosis. There is no central canal stenosis. C3-C4: There is mild bilateral uncovertebral joint osteoarthritis. There is severe bilateral facet gabino int osteoarthritis. There is mild bilateral neural foraminal stenosis. There is no central canal sten osis. C4-C5: There is no uncovertebral joint osteoarthritis. There is severe bilateral facet joint osteoart hritis. There is mild right neural foraminal stenosis. There is no central canal stenosis. C5-C6: There is severe bilateral uncovertebral joint osteoarthritis. There is moderate bilateral face t joint osteoarthritis. There is mild bilateral neural foraminal stenosis. There is mild central alvino l stenosis. C6-C7: There is severe bilateral uncovertebral joint osteoarthritis. There is severe bilateral facet joint osteoarthritis. There is mild bilateral neural foraminal stenosis. There is mild central canal stenosis. C7-T1: There is no uncovertebral joint osteoarthritis. There is severe bilateral facet joint osteoart hritis. There is mild left neural foraminal stenosis. There is no central canal stenosis. IMPRESSION: 1. No fracture. 2. Severe cervical spondylosis. Reviewed, dictated and finalized at location A.
--- NOTE | ~2024-01-24 | CT_ITS ---
EXAMINATION: CT brain wo con DATE: 01/24/2024 12:50 INDICATION: Head injury. TECHNIQUE: Computed tomography (CT) of the head was performed without intravenous contrast. The mA wa s adjusted according to patient size. Iterative reconstruction technique was employed. The dose-lengt h product was 681.00 mGy-cm. 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 There is an acute subdural hematoma at the falx measuring up to 6 mm in thickness on the left adjacent to the left parietal lobe. There is no a cute infarction or abnormal intracranial mass lesion. The ventricles are normal in size. There are li imtiaz changes of ocular lens replacement surgeries. There is a right frontal scalp hematoma. There is soft tissue swelling of the periorbital regions. There is mild mucosal thickening in left frontal sin us. The mastoid air cells are normal. IMPRESSION: 1. Small acute subdural hematoma at the falx. 2. 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 Reviewed, dictated and finalized at location A.
[2024-01-24 12:09] VITALS: BP 134/59; PULSE 72; RESP 20; TEMP 36.7; O2SAT 100
[2024-01-24 12:41] VITALS: BP 145/62; PULSE 67; RESP 16; TEMP 36.6; O2SAT 98
[2024-01-24 13:00] VITALS: BP 142/80; PULSE 67; RESP 17; TEMP 36.8; O2SAT 99
[2024-01-24 14:00] VITALS: BP 138/78; PULSE 68; RESP 16; TEMP 36.7; O2SAT 98
--- NOTE | 2024-01-24 14:06 | ED.GENADULT ---
HPI - General Adult General Chief complaint: Head Injury Stated complaint: head injury Time Seen by Provider: 01/24/24 13:04 History of Present Illness HPI narrative: 79-year-old female presenting to the emergency department for evaluation after having a ground level fall last night. Patient was walking in her house tripped over the metal threshold and struck her face. Patient denies any loss consciousness. Patient is not on any blood thinners. Patient was cared for by her family overnight ice packs were applied. Patient does have extensive contusion over her forehead and ecchymosis involving both eyes. Patient does have difficulty seen because of the swelling but denies any change in vision. Related Data Home Medications Medication Instructions Recorded Confirmed cyanocobalamin (vitamin B-12) 1,000 mcg PO DAILY 10/08/19 12/05/23 1,000 mcg capsule furosemide 20 mg tablet 20 mg PO DAILY 10/08/19 12/05/23 fenofibrate 160 mg tablet 145 mg PO DAILY 05/18/20 12/05/23 meloxicam 15 mg tablet 15 mg PO DAILY 05/18/20 12/05/23 atorvastatin 20 mg tablet 20 mg PO DAILY 03/13/21 12/05/23 citalopram 10 mg tablet 10 mg PO DAILY 03/13/21 12/05/23 lisinopril 20 mg tablet 20 mg PO DAILY 03/13/21 12/05/23 pantoprazole 40 mg tablet,delayed 40 mg PO QAM 03/13/21 12/05/23 release Allergies Allergy/AdvReac Type Severity Reaction Status Date / Time No Known Allergies Allergy Verified 01/24/24 12:15 Review of Systems Review of Systems: All systems reviewed & are unremarkable except as noted in HPI and below PMFSH Past Medical History Medical History (Updated 01/24/24 @ 14:24 by Beka Haji MD) Abnormal laboratory test Anxiety Asthma Cirrhosis Colon cancer screening Diabetes Hemoglobin A1c 5.26 February 2020 Diverticulosis Essential hypertension Gastroesophageal reflux disease Hypercholesterolemia DEJA (obstructive sleep apnea) No longer on CPAP after 100 lb weight loss Pancreatitis gallstone Pancytopenia Psoriasis Thrombocytopenia Surgical History Surgical History History of cholecystectomy History of colonoscopy with polypectomy History of total left knee replacement (10/2019) Hx of hysterectomy Due to uterine cancer Family History Family History Father Asthma Mother Hypertension Diabetes mellitus Acute myocardial infarction Sibling End-stage renal disease on hemodialysis sister COPD (chronic obstructive pulmonary disease) brother and sister Acute myocardial infarction 2 brothers Renal cancer sister Social History Social History Social History: She has 2 sons. 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 patient is a lifelong nonsmoker. She does not use any alcohol marijuana illicit drugs. The patient desires to be a full code. Her oldest son is the durable power defense attorney for healthcare. Code status: Full code Surrogate decision maker: Oldest son Smoking status: Never smoker Alcohol intake: never Substance use: never Substance use type: does not use Living arrangements: alone Additional living arrangements comments: She lives in her own home. She has been since 1989 Occupation/Education: retired Spiritual care concerns: No Agree to blood products: Yes Exam Narrative: APPEARANCE: Well appearing, no pain, no distress, well-nourished. HEAD: normocephalic, atraumatic. EYES: PERRLA/EOMI, conjunctivae clear. NOSE: Normal no drainage EARS:TMS clear with good light reflex. THROAT: Pharynx clear, no exudate. NECK: Supple. No adenopathy, no masses. RESPIRATORY: Airway patent, respirations nonlabored. Clear to auscultation bilaterally, no rales, rhonchi, wheezing. CARDIOVASCULAR: Regular rate and rhythm without murmurs rubs or gallops. ABD
--- NOTE | 2024-01-24 14:08 | PC.NURSE ---
ambulated in [place]- gait was unsteady but pt reports she will use walker or cane at home until swelling improves around eyes.
--- NOTE | 2024-01-24 14:19 | ECG_ITS ---
[facility] [address] Test Date: 2024-01-24 Pat Name: Leia Jane Department: Room: Gender: F [facility] Aide: : 1945 Requested By: Beka Hawkins Order Number: [id number] Shukri MD: Glenn Feliz D.O. Measurements Intervals [place] Rate: 70 P: 79 NH: 180 QRS: -9 QRSD: 138 T: -13 QT: 399 QTc: 431 Interpretive Statements SINUS RHYTHM RIGHT BUNDLE BRANCH BLOCK LEFT VENTRICULAR HYPERTROPHY BORDERLINE ST-T WAVE ABNORMALITY- INFERIOR LEADS ABNORMAL ECG No previous ECG available for comparison Electronically Signed On 01-24-2024 16:58:04 CDT by Glenn Feliz D.O.
[2024-01-24 15:00] VITALS: BP 164/72; PULSE 82; RESP 18; TEMP 36.6; O2SAT 100
[2024-01-24 15:06] LABS: Basophils Percent Auto 0.3 % (0.2-1.2); Eosinophils Absolute Auto 0.1 K/mm3 (0-0.3); Eosinophils Percent Auto 2.7 % (0-4.4); Hematocrit 29.3 % (37.0-47.0); Hemoglobin 9.3 g/dL (12.0-15.0); Immature Granulocyte Absolute 0.02 K/mm3 (0.00-0.031); Immature Granulocyte Percent A 0.6 % (0-0.5); Lymphocytes Absolute Auto 0.82 K/mm3 (0.9-3.2); Lymphocytes Percent Auto 24.6 % (18.3-44.2); Mean Corpuscular HGB Conc 31.7 g/dl (32-36); Mean Corpuscular Hemoglobin 31.6 pg (26-34); Mean Corpuscular Volume 99.7 fl (80-100); Mean Platelet Volume 11.6 fl (7.4-10.4); Monocytes Absolute Auto 0.3 K/mm3 (0.1-0.6); Monocytes Percent Auto 8.4 % (2.6-8.5); Neutrophils Absolute Auto 2.1 K/mm3 (1.3-6.7); Neutrophils Percent Auto 63.4 % (45.5-73.1); Platelet Count Result 113 k/mm3 (150-375); Red Blood Count 2.94 M/mm3 (4.2-5.4); Red Cell Distribution Width 16.3 % (11.5-14.5); White Blood Count 3.3 K/mm3 (4.5-10.0)
[2024-01-24 15:18] LABS: INR 1.3; Prothrombin Time 16.8 Seconds (11.1-14.7)
[2024-01-24 15:19] LABS: Partial Thromboplastin Time 41.8 Seconds (22.3-36.8)
[2024-01-24 15:29] LABS: Alanine Aminotransferase 47 U/L (6-35); Albumin Level 3.8 g/dL (3.5-5.1); Alkaline Phosphatase 82 U/L (38-126); Anion Gap 6 mmol/L (4-12); Aspartate Amino Transferase 69 U/L (14-36); Bilirubin,Total 1.4 mg/dL (0.2-1.3); Blood Urea Nitrogen 26 mg/dL (7-17); Calcium 10.2 mg/dL (8.4-10.2); Carbon Dioxide 29 mmol/L (22-30); Chloride 107 mmol/L (98-107); Estimated CRCL calculation 46 ml/min; Estimated Glomerular Filt Rate > 60; Glucose 96 mg/dL (65-110); Potassium 4.1 mmol/L (3.4-5.0); Sodium 142 mmol/L (137-145)
== END 2024-01-24 15:15 | disposition short-term general hospital (02) ==
PROVIDERS: Emergency Provider Emergency Medicine; PCP Student in an Organized Health Care Education/Training Program
DX: S06.5X0A Traumatic subdural hemorrhage without loss of consciousness, initial encounter (principal); S00.83XA Contusion of other part of head, initial encounter; S00.12XA Contusion of left eyelid and periocular area, initial encounter; S00.11XA Contusion of right eyelid and periocular area, initial encounter; J45.909 Unspecified asthma, uncomplicated; I10 Essential (primary) hypertension; E78.00 Pure hypercholesterolemia, unspecified; G47.33 Obstructive sleep apnea (adult) (pediatric); L40.9 Psoriasis, unspecified; K21.9 Gastro-esophageal reflux disease without esophagitis; F41.9 Anxiety disorder, unspecified; Z96.659 Presence of unspecified artificial knee joint; Z85.42 Personal history of malignant neoplasm of other parts of uterus; Z90.49 Acquired absence of other specified parts of digestive tract; Z90.710 Acquired absence of both cervix and uterus; M47.812 Spondylosis without myelopathy or radiculopathy, cervical region; I45.10 Unspecified right bundle-branch block; I51.7 Cardiomegaly; R94.31 Abnormal electrocardiogram [ECG] [EKG]; W18.09XA Striking against other object with subsequent fall, initial encounter
CPT/HCPCS: 36415; 70450; 70486; 72125; 80053; 85025; 85610; 85730; 93005; 99291

== ENCOUNTER 2024-02-12 01:37 | Day surgery (SDC) | payer MEDICARE, SELFPAY ==
[2024-01-30 10:47] VITALS: BMI 30.4
[2024-02-12 11:33] VITALS: BP 132/66; PULSE 80; RESP 19; TEMP 36.9; O2SAT 99
[2024-02-12] MEDS: LACTATED RINGERS 1,000 ML 150 ML IV CONT (11:45)
--- NOTE | 2024-02-12 11:55 | WPDANESEPPF ---
Anes - Initial Pre Proc Eval Procedure: Operation Date: 02/12/24 12:30 Proposed Procedures p Esophagogastroduodenoscopy & Colonoscopy - Kannan Christian MD Date/Time: 02/12/24 11:55 Surgeon: Kannan Christian MD Pre Op Diagnosis: unspecified cirrhosis of liver, personal history Patient Data Age: 79 Gender: F Height: 1.55 m Weight: 70.2 kg Last Vital Signs Temp 98.4 F 02/12/24 11:33 Pulse 80 02/12/24 11:33 Resp 19 02/12/24 11:33 BP 132/66 02/12/24 11:33 Pulse Ox 99 02/12/24 11:33 O2 Del Method Room Air 02/12/24 11:33 Allergies Allergy/AdvReac Type Severity Reaction Status Date / Time No Known Allergies Allergy Verified 02/12/24 11:32 Home Medications Medication Instructions Recorded Confirmed Type cyanocobalamin (vitamin B-12) 1,000 mcg PO DAILY 10/08/19 01/30/24 History 1,000 mcg capsule furosemide 20 mg tablet 20 mg PO DAILY 10/08/19 01/30/24 History fenofibrate 160 mg tablet 145 mg PO DAILY 05/18/20 01/30/24 History meloxicam 15 mg tablet 15 mg PO DAILY 05/18/20 01/30/24 History atorvastatin 20 mg tablet 20 mg PO DAILY 03/13/21 01/30/24 History citalopram 10 mg tablet 10 mg PO DAILY 03/13/21 01/30/24 History lisinopril 20 mg tablet 40 mg PO DAILY 03/13/21 01/30/24 History pantoprazole 40 mg tablet,delayed 40 mg PO QAM 03/13/21 01/30/24 History release fluticasone propionate 50 2 spray intranasal QAM #16 grams 03/18/21 01/30/24 Rx mcg/actuation nasal spray,suspension albuterol sulfate 90 mcg/actuation 2 puff inhalation PRN PRN 06/22/21 01/30/24 Rx aerosol inhaler (Ventolin HFA) Shortness Of Breath #8.5 grams Patient hx anesthesia problems: none Family hx anesthesia problems: none Results Review: All pre-operative results and documents have been reviewed as part of the pre-operative evaluation. PMFSH Past Medical History Medical History Abnormal laboratory test Anxiety Asthma Cirrhosis Colon cancer screening Diabetes Hemoglobin A1c 5.26 February 2020 Diverticulosis Essential hypertension Gastroesophageal reflux disease Hypercholesterolemia DEJA (obstructive sleep apnea) No longer on CPAP after 100 lb weight loss Pancreatitis gallstone Pancytopenia Psoriasis Thrombocytopenia Surgical History Surgical History History of cholecystectomy History of colonoscopy with polypectomy History of total left knee replacement (10/2019) Hx of hysterectomy Due to uterine cancer Family History Family History Father Asthma Mother Hypertension Diabetes mellitus Acute myocardial infarction Sibling End-stage renal disease on hemodialysis sister COPD (chronic obstructive pulmonary disease) brother and sister Acute myocardial infarction 2 brothers Renal cancer sister Social History Social History Social History: She has 2 sons. 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 patient is a lifelong nonsmoker. She does not use any alcohol marijuana illicit drugs. The patient desires to be a full code. Her oldest son is the durable power workers compensation defense attorney for healthcare. Code status: Full code Surrogate decision maker: Oldest son Smoking status: Never smoker Alcohol intake: never Substance use: never Substance use type: does not use Living arrangements: alone Additional living arrangements comments: She lives in her own home. She has been since 1989 Occupation/Education: retired Spiritual care concerns: No Agree to blood products: Yes Anes - Eval Final PreProcedure Day of Procedure 02/12/24 11:55 Patient weight: obese Heart: regular rate and rhythm Lungs: clear to auscultation Airway: Mallampati scale and s
--- NOTE | 2024-02-12 11:56 | PM.HPGS ---
History of Present Illness History of Present Illness Consent: Risks, benefits, and alternatives have been discussed and questions answered. Patient agrees to proceed with procedure. Chief complaint: unspecified cirrhosis of liver, personal history Narrative: Leia Jane is a 79 year old female here for egd and colonoscopy, found to have cirrhosis, colon polyp in 2017 Review of Systems Review of Systems: All systems reviewed & are unremarkable except as noted in HPI and below PMFSH Past Medical History Medical History (Updated 02/12/24 @ 11:57 by Kannan Christian MD) Abnormal laboratory test Adenomatous colon polyp Anxiety Asthma Cirrhosis Colon cancer screening Diabetes Hemoglobin A1c 5.26 February 2020 Diverticulosis Essential hypertension Gastroesophageal reflux disease Hypercholesterolemia DEJA (obstructive sleep apnea) No longer on CPAP after 100 lb weight loss Pancreatitis gallstone Pancytopenia Psoriasis Thrombocytopenia Surgical History Surgical History History of cholecystectomy History of colonoscopy with polypectomy History of total left knee replacement (10/2019) Hx of hysterectomy Due to uterine cancer Family History Family History Father Asthma Mother Hypertension Diabetes mellitus Acute myocardial infarction Sibling End-stage renal disease on hemodialysis sister COPD (chronic obstructive pulmonary disease) brother and sister Acute myocardial infarction 2 brothers Renal cancer sister Social History Social History Social History: She has 2 sons. 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 patient is a lifelong nonsmoker. She does not use any alcohol marijuana illicit drugs. The patient desires to be a full code. Her oldest son is the durable power employment attorney for healthcare. Code status: Full code Surrogate decision maker: Oldest son Smoking status: Never smoker Alcohol intake: never Substance use: never Substance use type: does not use Living arrangements: alone Additional living arrangements comments: She lives in her own home. She has been since 1989 Occupation/Education: retired Spiritual care concerns: No Agree to blood products: Yes Meds Home Medications and Allergies Home Medications Medication Instructions Recorded Confirmed Type cyanocobalamin (vitamin B-12) 1,000 mcg PO DAILY 10/08/19 01/30/24 History 1,000 mcg capsule furosemide 20 mg tablet 20 mg PO DAILY 10/08/19 01/30/24 History fenofibrate 160 mg tablet 145 mg PO DAILY 05/18/20 01/30/24 History meloxicam 15 mg tablet 15 mg PO DAILY 05/18/20 01/30/24 History atorvastatin 20 mg tablet 20 mg PO DAILY 03/13/21 01/30/24 History citalopram 10 mg tablet 10 mg PO DAILY 03/13/21 01/30/24 History lisinopril 20 mg tablet 40 mg PO DAILY 03/13/21 01/30/24 History pantoprazole 40 mg tablet,delayed 40 mg PO QAM 03/13/21 01/30/24 History release fluticasone propionate 50 2 spray intranasal QAM #16 grams 03/18/21 01/30/24 Rx mcg/actuation nasal spray,suspension albuterol sulfate 90 mcg/actuation 2 puff inhalation PRN PRN 06/22/21 01/30/24 Rx aerosol inhaler (Ventolin HFA) Shortness Of Breath #8.5 grams Allergies Allergy/AdvReac Type Severity Reaction Status Date / Time No Known Allergies Allergy Verified 02/12/24 11:32 Vital Signs Vital Signs - 24 hr 02/12/24 11:33 Temperature 98.4 F Pulse Rate 80 Respiratory Rate 19 Blood Pressure 132/66 Pulse Oximetry 99 Oxygen Delivery Room Air Exam Const: General: comfortable and no acute distress HENMT: Face/Nose/Sinus: Normal nares present Other: bruise in forehead- h/o fall weeks ago Eyes: General: appearance normal, both eyes and all related structur
--- NOTE | 2024-02-12 12:04 | SUR.OPER ---
EGD COMPLETED AT 1201, COLONOSCOPY STARTED AT 1205
[2024-02-12 12:20] VITALS: BP 94/45; PULSE 66; RESP 17; O2SAT 99
[2024-02-12 12:30] VITALS: BP 111/62; PULSE 73; RESP 19; O2SAT 100
[2024-02-12 12:40] VITALS: BP 134/60; PULSE 70; RESP 17; O2SAT 100
== END 2024-02-12 12:58 | disposition home or self-care (01) ==
PROVIDERS: PCP Student in an Organized Health Care Education/Training Program; Visit Provider Internal Medicine Gastroenterology
PROC: 0DJ08ZZ Inspection of Upper Intestinal Tract, Via Natural or Artificial Opening Endoscopic (ICD-10-PCS; CPT 43235; principal; 2024-02-12 12:30)
DX: Z12.11 Encounter for screening for malignant neoplasm of colon (principal); K51.40 Inflammatory polyps of colon without complications; K63.5 Polyp of colon; K57.30 Diverticulosis of large intestine without perforation or abscess without bleeding; K64.8 Other hemorrhoids; K74.60 Unspecified cirrhosis of liver; K29.70 Gastritis, unspecified, without bleeding; J45.909 Unspecified asthma, uncomplicated; E11.9 Type 2 diabetes mellitus without complications; I10 Essential (primary) hypertension; K21.9 Gastro-esophageal reflux disease without esophagitis; E78.00 Pure hypercholesterolemia, unspecified; G47.33 Obstructive sleep apnea (adult) (pediatric); Z85.42 Personal history of malignant neoplasm of other parts of uterus; E66.9 Obesity, unspecified; Z68.29 Body mass index [BMI] 29.0-29.9, adult; Z79.51 Long term (current) use of inhaled steroids
CPT/HCPCS: 45385; 43235; 88305; J2704; J7120

== ENCOUNTER 2024-03-20 12:05 | Outpatient (CLI) | payer MEDICARE, SELFPAY ==
--- NOTE | ~2024-03-20 | XR_ITS ---
XR knee RT min 4V Ordering provider: Abiodun Santana MD History: . M25.561 - Pain in right knee, NO INJURY . Comparison: July 16, 2019 FINDINGS: BONES: No acute fracture or dislocation. JOINT SPACES: Narrowing of the medial compartment. SOFT TISSUES: Normal. IMPRESSION: No acute osseous abnormality right knee. Severe osteoarthritic changes. Reviewed, dictated and finalized at location A.
--- NOTE | ~2024-03-20 | XR_ITS ---
XR knee LT 3V Ordering provider: Abiodun Snatana MD History: . Z96.652 - Presence of left artificial knee joint . Comparison: October 26, 2020. FINDINGS: BONES: No acute fracture or dislocation. JOINT SPACES: Total knee arthroplasty. SOFT TISSUES: Normal. IMPRESSION: No acute osseous abnormality left knee. Total knee arthroplasty. Reviewed, dictated and finalized at location A.
== END 2024-03-20 12:06 | disposition home or self-care (01) ==
LOC: ANHIMG 12:08
PROVIDERS: PCP Student in an Organized Health Care Education/Training Program; Visit Provider Orthopaedic Surgery
DX: M25.562 Pain in left knee (principal); Z96.652 Presence of left artificial knee joint; M17.11 Unilateral primary osteoarthritis, right knee
CPT/HCPCS: 73562; 73564

== ENCOUNTER 2024-03-20 23:04 | Emergency (ER) | payer MEDICARE, SELFPAY ==
--- NOTE | ~2024-03-20 | CT_ITS ---
EXAMINATION: CT abdomen pelvis w con DATE: 03/21/2024 04:08 INDICATION: Weakness. Abnormal blood test. Anemia. Possible GI bleed. TECHNIQUE: Computed tomography (CT) of the abdomen and pelvis was performed with 100 cc Omnipaque 350 intravenous contrast. The dose-length product was 749.24 mGy-cm. Automated exposure control and iter ative reconstruction technique were employed. COMPARISON: CT dated 12/05/2023. FINDINGS: There is cirrhosis of the liver with portal venous hypertension. Splenomegaly. Small low-de nsity lesions in the spleen, most likely benign cysts. Status post cholecystectomy. Mild bilateral re nal atrophy. Trace free fluid in the pelvis. Mild lumbar spondylosis. Grade 1 degenerative spondyloli sthesis at L4-5. The pancreas, adrenal glands are unremarkable. No significant vascular abnormality. No lymphadenopathy. No free air. IMPRESSION: 1. Cirrhosis with portal venous hypertension. Reviewed, dictated and finalized at location B.
--- NOTE | ~2024-03-20 | XR_ITS ---
XR chest 1V portable 03/21/2024 02:24 Indication: Generalized weakness Procedure: AP portable chest Comparison: Comparison to multiple prior studies sequentially, with oldest reviewed study dated 01/22. Findings: Borderline heart size. No focal air space disease, pulmonary edema, pleural effusion or adal pected pneumothorax. Impression: 1: No acute cardiopulmonary disease. Reviewed, dictated and finalized at location B. Impression: 1: No acute cardiopulmonary disease.
[2024-03-20 23:06] VITALS: BP 131/48; PULSE 80; RESP 16; TEMP 36.8; O2SAT 100
--- NOTE | 2024-03-21 01:55 | ED.GENADULT ---
HPI - General Adult General Chief complaint: Unspecified Stated complaint: blood test results low Time Seen by Provider: 03/21/24 01:47 Source: patient and family Mode of arrival: EMS Limitations: no limitations History of Present Illness HPI narrative: Patient presents after being notified by her physician that she had a lab value the required that she present to the emergency department. Patient's physician Dr Shivam Da Silva ([facility]) called EMS on her behalf. Patient does not know what lab value this is initially though through detailed questioning it is later determined that she states that she was told that she would need a blood transfusion. She has been more weak lately, dizzy and with difficulty walking. She denies any chest pain. She does intermittently get short of breath but has a baseline history of asthma. Labs were drawn today. Denies any obvious bleeding such as vaginal bleeding, bloody bowel movements hemoptysis, hematemesis, or hematuria. Has a history of anemia but has never required transfusion. Related Data Home Medications Medication Instructions Recorded Confirmed cyanocobalamin (vitamin B-12) 1,000 mcg PO DAILY 10/08/19 01/30/24 1,000 mcg capsule furosemide 20 mg tablet 20 mg PO DAILY 10/08/19 01/30/24 fenofibrate 160 mg tablet 145 mg PO DAILY 05/18/20 01/30/24 meloxicam 15 mg tablet 15 mg PO DAILY 05/18/20 01/30/24 atorvastatin 20 mg tablet 20 mg PO DAILY 03/13/21 01/30/24 citalopram 10 mg tablet 10 mg PO DAILY 03/13/21 01/30/24 lisinopril 20 mg tablet 40 mg PO DAILY 03/13/21 01/30/24 pantoprazole 40 mg tablet,delayed 40 mg PO QAM 03/13/21 01/30/24 release Allergies Allergy/AdvReac Type Severity Reaction Status Date / Time No Known Allergies Allergy Verified 02/12/24 11:32 [facility] Past Medical History Medical History (Updated 03/22/24 @ 00:00 by Background Daemon) Abnormal laboratory test Adenomatous colon polyp Anxiety Asthma Cirrhosis Colon cancer screening Diabetes Hemoglobin A1c 5.26 February 2020 Diverticulosis Essential hypertension Gastroesophageal reflux disease Hypercholesterolemia DEJA (obstructive sleep apnea) No longer on CPAP after 100 lb weight loss Pancreatitis gallstone Pancytopenia Psoriasis Thrombocytopenia Surgical History Surgical History History of cholecystectomy History of colonoscopy with polypectomy History of total left knee replacement (10/2019) Hx of hysterectomy Due to uterine cancer Family History Family History Father Asthma Mother Hypertension Diabetes mellitus Acute myocardial infarction Sibling End-stage renal disease on hemodialysis sister COPD (chronic obstructive pulmonary disease) brother and sister Acute myocardial infarction 2 brothers Renal cancer sister Social History Social History Social History: She has 2 sons. 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 patient is a lifelong nonsmoker. She does not use any alcohol marijuana illicit drugs. The patient desires to be a full code. Her oldest son is the durable power assistant prosecuting attorney for healthcare. Code status: Full code Surrogate decision maker: Oldest son Smoking status: Never smoker Alcohol intake: never Substance use: never Substance use type: does not use Living arrangements: alone Additional living arrangements comments: She lives in her own home. She has been since 1989 Occupation/Education: retired Spiritual care concerns: No Agree to blood products: Yes Exam Narrative: GENERAL: Well-appearing, well-nourished, and in no acute distress. HEAD: Normocephalic, atraumatic. EYES: Non injected, mildly icteric. Conjunctival pallor. ENT: Nares clear, no rhinorrhea or epistaxis. NECK: [place]
[2024-03-21 02:51] LABS: Mean Corpuscular HGB Conc 31.1 g/dl (32-36); Mean Corpuscular Hemoglobin 30.3 pg (26-34); Mean Corpuscular Volume 97.6 fl (80-100); Mean Platelet Volume 11.1 fl (7.4-10.4); Platelet Count Result 128 k/mm3 (150-375); Red Blood Count 2.11 M/mm3 (4.2-5.4); Red Cell Distribution Width 14.4 % (11.5-14.5); White Blood Count 3.3 K/mm3 (4.5-10.0)
[2024-03-21 02:53] LABS: Hematocrit 20.6 % (37.0-47.0); Hemoglobin 6.4 g/dL (12.0-15.0)
[2024-03-21 03:04] LABS: Anion Gap 6 mmol/L (4-12); Blood Urea Nitrogen 39 mg/dL (7-17); Calcium 10.8 mg/dL (8.4-10.2); Carbon Dioxide 32 mmol/L (22-30); Chloride 102 mmol/L (98-107); Estimated CRCL calculation 25 ml/min; Estimated Glomerular Filt Rate 34; Glucose 115 mg/dL (65-110); Magnesium 2.2 mg/dL (1.6-2.3); Potassium 3.6 mmol/L (3.4-5.0); Sodium 140 mmol/L (137-145)
[2024-03-21 03:14] LABS: INR 1.2; Partial Thromboplastin Time 37.4 Seconds (22.3-36.8); Prothrombin Time 15.6 Seconds (11.1-14.7)
[2024-03-21 03:14] LABS: Appearance Urine Clear (Clear); Bacteria Urine 1+ /hpf; Bilirubin Urine Negative (Negative); Blood Urine Negative (Negative); Color Urine Yellow (Yellow); Glucose Urine UA Negative (Negative); Hyaline Casts Urine Present /lpf; Ketones Urine Trace mg/dL (Negative); Leukocyte Esterase Ur 2+ LEU/UL (Negative); Need Manual Microscopic Reviewed; Nitrate Urine Negative (Negative); Non Pathogenic Casts >20; Protein Urine Negative (Negative); RBC Urine 0-2 /hpf (0-2); Specific Grav Ur 1.018 (1.001-1.035); Squamous Epithelial Cell Urine Few /hpf (Few)
[2024-03-21 03:16] LABS: Add Urine Microscopic? YES
[2024-03-21 03:29] LABS: Influenza A QL RT-PCR Negative (Negative); Influenza B QL RT-PCR Negative (Negative); RSV RNA, RT-PCR Negative (Negative); SARS-CoV-2 RNA PCR Negative (Negative)
[2024-03-21 03:59] LABS: Iron 31 ug/dL (37-170)
[2024-03-21 04:11] LABS: Creatine Kinase 31 U/L (30-135)
[2024-03-21 04:12] LABS: Percent Iron Saturation 6 % (20-50)
[2024-03-21] MEDS: SODIUM CHLORIDE 0.9% IV 1,000 ML 999 ML IV CONT (04:25)
[2024-03-21 04:39] LABS: Ferritin 9.07 ng/mL (11.1-264)
[2024-03-21 04:43] VITALS: BP 142/64; PULSE 79; RESP 16; TEMP 36.7; O2SAT 100
[2024-03-21] MEDS: SODIUM CHLORIDE 0.9% IV 250 ML 30 ML IV CONT (04:53)
[2024-03-21] MEDS: CEPHALEXIN 500 MG CAPSULE PO (04:53)
[2024-03-21 05:02] VITALS: BP 120/58; PULSE 84; RESP 18; TEMP 36.6; O2SAT 100
[2024-03-21] MEDS: TUBING, BLOOD PLUM PUMP TUBING 1 EACH XX (05:28)
[2024-03-21 06:39] VITALS: BP 156/82; PULSE 82; RESP 16; O2SAT 100
[2024-03-21 07:37] VITALS: BP 140/66
== END 2024-03-21 07:48 | disposition home or self-care (01) ==
PROVIDERS: Emergency Provider Student in an Organized Health Care Education/Training Program; PCP Student in an Organized Health Care Education/Training Program
DX: D50.9 Iron deficiency anemia, unspecified (principal); D61.818 Other pancytopenia; N39.0 Urinary tract infection, site not specified; I27.20 Pulmonary hypertension, unspecified; K74.60 Unspecified cirrhosis of liver; J45.909 Unspecified asthma, uncomplicated; I10 Essential (primary) hypertension; E11.9 Type 2 diabetes mellitus without complications; E78.00 Pure hypercholesterolemia, unspecified; K21.9 Gastro-esophageal reflux disease without esophagitis; G47.33 Obstructive sleep apnea (adult) (pediatric); L40.9 Psoriasis, unspecified; Z86.010 Personal history of colon polyps; Z96.652 Presence of left artificial knee joint; Z85.41 Personal history of malignant neoplasm of cervix uteri; Z90.49 Acquired absence of other specified parts of digestive tract; Z90.710 Acquired absence of both cervix and uterus; Z79.899 Other long term (current) drug therapy
CPT/HCPCS: 36415; 36430; 71045; 73562; 73564; 74177; 80048; 81001; 82550; 82728; 83540; 83550; 83735; 85025; 85610; 85730; 86850; 86900; 86901; 86923; 87077; 87086; 87088; 87186; 87637; 96360; 96361; 99285; A9270; J7030; J7050; P9016; Q9967

== ENCOUNTER 2024-03-30 11:04 | Emergency (ER) | payer MEDICARE, SELFPAY ==
[2024-03-30] VITALS (47 sets, daily range): BP systolic 108–151; BP diastolic 49–85; PULSE 68–80; RESP 14–20; TEMP 36.4–36.7; O2SAT 96–100
--- NOTE | ~2024-03-30 | CT_ITS ---
EXAMINATION: CTA abdomen pelvis DATE: 03/30/2024 14:38 INDICATION: Gastrointestinal hemorrhage. TECHNIQUE: Computed tomographic angiography (CTA) of the abdomen and pelvis was performed without and with 100 mL Omnipaque-350 intravenous contrast. Automated exposure control and iterative reconstruct ion technique were employed. The dose-length product was 889.07 mGy-cm. Maximum intensity projection 3D-reconstructions of the aorta and other arteries were constructed by the technologist on a separate workstation. COMPARISON: CT abdomen and pelvis 03/21/2024 FINDINGS: The visualized portions of the lung bases demonstrate mild atelectasis. There is a small ri ght pleural effusion. Cardiomegaly is noted. No pericardial effusion. The liver demonstrates a nodula r surface contour, consistent with cirrhosis. There are 2 cysts in the spleen measuring up to 8 mm. T he pancreas and adrenal glands are normal. There is a splenorenal venous shunt. There is a 10 mm cyst in right kidney. Left kidney is normal. There are no dilated loops of bowel. The appendix is normal. Aortic atherosclerosis is noted. There is no significant stenosis of celiac axis, superior mesenteri c artery, the renal arteries, or inferior mesenteric artery. There is a small volume of pelvic ascite s. There are no pathologically enlarged lymph nodes. There is mild lumbar spondylosis. IMPRESSION: 1. Cirrhosis of the liver with portal venous hypertension. 2. Small volume of ascites. 3. Small right pleural effusion. Reviewed, dictated and finalized at location A.
--- NOTE | 2024-03-30 11:44 | ECG_ITS ---
Test Date: 2024-03-30 11:49:09 Measurements Intervals [place] Rate: 71 P: 0 OK: 0 QRS: -11 QRSD: 133 T: -11 QT: 374 QTc: 409 Interpretive Statements ATRIAL FIBRILLATION RIGHT BUNDLE BRANCH BLOCK [120+ ms QRS DURATION, UPRIGHT V1, 40+ ms S IN I/aVL/V4/V5/V6] VOLTAGE CRITERIA FOR LVH [MEETS CRITERIA IN ONE OF: R(aVL), S(V1), R(V5), R(V5/V6)+S(V1)] ABNORMAL ECG Compared to ECG 01/24/2024 14:56:58 NO DIFFERENCE Electronically Signed On 03-30-2024 17:14:02 CDT by Tony Roque M.D.
[2024-03-30 11:55] LABS: Eosinophils Absolute Auto 0.1 K/mm3 (0-0.3); Eosinophils Percent Auto 2.8 % (0-4.4); Hematocrit 23.1 % (37.0-47.0); Hemoglobin 7.1 g/dL (12.0-15.0); Immature Granulocyte Absolute 0.01 K/mm3 (0.00-0.031); Immature Granulocyte Percent A 0.3 % (0-0.5); Lymphocytes Absolute Auto 0.84 K/mm3 (0.9-3.2); Lymphocytes Percent Auto 26.3 % (18.3-44.2); Mean Corpuscular HGB Conc 30.7 g/dl (32-36); Mean Corpuscular Hemoglobin 30.5 pg (26-34); Mean Corpuscular Volume 99.1 fl (80-100); Mean Platelet Volume 11.4 fl (7.4-10.4); Monocytes Absolute Auto 0.3 K/mm3 (0.1-0.6); Monocytes Percent Auto 10.3 % (2.6-8.5); Neutrophils Absolute Auto 1.9 K/mm3 (1.3-6.7); Neutrophils Percent Auto 60.3 % (45.5-73.1); Platelet Count Result 126 k/mm3 (150-375); Red Blood Count 2.33 M/mm3 (4.2-5.4); Red Cell Distribution Width 17.3 % (11.5-14.5); White Blood Count 3.2 K/mm3 (4.5-10.0)
[2024-03-30 12:05] LABS: Alanine Aminotransferase 37 U/L (6-35); Albumin Level 3.5 g/dL (3.5-5.1); Alkaline Phosphatase 63 U/L (38-126); Anion Gap 9 mmol/L (4-12); Aspartate Amino Transferase 68 U/L (14-36); Bilirubin,Total 0.9 mg/dL (0.2-1.3); Blood Urea Nitrogen 33 mg/dL (7-17); Calcium 10.6 mg/dL (8.4-10.2); Carbon Dioxide 29 mmol/L (22-30); Chloride 100 mmol/L (98-107); Estimated CRCL calculation 36 ml/min; Estimated Glomerular Filt Rate 54; Glucose 122 mg/dL (65-110); Potassium 4.3 mmol/L (3.4-5.0); Sodium 138 mmol/L (137-145)
[2024-03-30 12:08] LABS: INR 1.3; Partial Thromboplastin Time 36.7 Seconds (22.3-36.8); Prothrombin Time 16.1 Seconds (11.1-14.7)
--- NOTE | 2024-03-30 14:05 | ED.RECABL ---
HPI - Recheck/Abnormal Lab/Rx General Chief Complaint: Recheck/Abnormal Lab/Rx Stated Complaint: abnormal labs Time Seen by Provider: 03/30/24 12:45 History of Present Illness HPI narrative: This is a 79-year-old female with a history of hypertension, pancreatitis, and anemia requiring a transfusion approximately 1 week ago, returns to the emergency department after being told by primary care doctor's office her she was anemic. She complains of lightheadedness and fatigue with dyspnea on exertion. She states she has had formed black stools since a previous colonoscopy approximately 2 months ago (demonstrating noncancerous appearing polyps and diverticulosis without bleeding) and EGD demonstrating gastritis without bleeding ulcer. She denies no bleeding from elsewhere. She has no other complaints at this time. Related Data Home Medications Medication Instructions Recorded Confirmed cyanocobalamin (vitamin B-12) 1,000 mcg PO DAILY 10/08/19 01/30/24 1,000 mcg capsule furosemide 20 mg tablet 20 mg PO DAILY 10/08/19 01/30/24 fenofibrate 160 mg tablet 145 mg PO DAILY 05/18/20 01/30/24 meloxicam 15 mg tablet 15 mg PO DAILY 05/18/20 01/30/24 atorvastatin 20 mg tablet 20 mg PO DAILY 03/13/21 01/30/24 citalopram 10 mg tablet 10 mg PO DAILY 03/13/21 01/30/24 lisinopril 20 mg tablet 40 mg PO DAILY 03/13/21 01/30/24 pantoprazole 40 mg tablet,delayed 40 mg PO QAM 03/13/21 01/30/24 release Allergies Allergy/AdvReac Type Severity Reaction Status Date / Time No Known Allergies Allergy Verified 02/12/24 11:32 Review of Systems Review of Systems: All systems reviewed & are unremarkable except as noted in HPI and below PMFSH Past Medical History Medical History Abnormal laboratory test Adenomatous colon polyp Anxiety Asthma Cirrhosis Colon cancer screening Diabetes Hemoglobin A1c 5.26 February 2020 Diverticulosis Essential hypertension Gastroesophageal reflux disease Hypercholesterolemia DEJA (obstructive sleep apnea) No longer on CPAP after 100 lb weight loss Pancreatitis gallstone Pancytopenia Psoriasis Thrombocytopenia Surgical History Surgical History History of cholecystectomy History of colonoscopy with polypectomy History of total left knee replacement (10/2019) Hx of hysterectomy Due to uterine cancer Family History Family History Father Asthma Mother Hypertension Diabetes mellitus Acute myocardial infarction Sibling End-stage renal disease on hemodialysis sister COPD (chronic obstructive pulmonary disease) brother and sister Acute myocardial infarction 2 brothers Renal cancer sister Social History Social History Social History: She has 2 sons. 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 patient is a lifelong nonsmoker. She does not use any alcohol marijuana illicit drugs. The patient desires to be a full code. Her oldest son is the durable power ip attorney for healthcare. Code status: Full code Surrogate decision maker: Oldest son Smoking status: Never smoker Alcohol intake: never Substance use: never Substance use type: does not use Living arrangements: alone Additional living arrangements comments: She lives in her own home. She has been since 1989 Occupation/Education: retired Spiritual care concerns: No Agree to blood products: Yes Exam Narrative: GENERAL: Well-developed, well-nourished, and in no acute distress. HEAD: Normocephalic, atraumatic. EYES: PERRLA and EOMI. Pale conjunctiva CHEST: Clear to auscultation. No respiratory distress. No wheezes rales or rhonchi HEART: Regular rate and rhythm. No murmur heard. Normal peripheral pulses. ABDOMEN: Soft, nontender, nondist
[2024-03-30] MEDS: TUBING, BLOOD SET 1 EACH XX (14:58)
[2024-03-30] MEDS: SODIUM CHLORIDE 0.9% IV 250 ML 30 ML IV CONT (14:58)
[2024-03-30 17:52] LABS: Hematocrit 24.4 % (37.0-47.0); Hemoglobin 7.5 g/dL (12.0-15.0)
== END 2024-03-30 19:29 | disposition home or self-care (01) ==
PROVIDERS: Emergency Medicine; Emergency Provider Preventive Medicine Aerospace Medicine; PCP Student in an Organized Health Care Education/Training Program
DX: D64.9 Anemia, unspecified (principal); K74.60 Unspecified cirrhosis of liver; F41.9 Anxiety disorder, unspecified; J45.909 Unspecified asthma, uncomplicated; E11.9 Type 2 diabetes mellitus without complications; I10 Essential (primary) hypertension; K21.9 Gastro-esophageal reflux disease without esophagitis; G47.30 Sleep apnea, unspecified
CPT/HCPCS: 36415; 36430; 74174; 80053; 85014; 85018; 85025; 85610; 85730; 86850; 86900; 86901; 86923; 93005; 96360; 96361; 99285; J7050; P9016; Q9967

== ENCOUNTER 2024-04-28 05:27 | Outpatient (CLI) | payer MEDICARE, SELFPAY ==
--- NOTE | 2024-04-23 11:13 | PC.NURSE ---
Pt called after receiving instructions in the mail. Reviewed instructions and answered questions. Pt verbalizes understanding.
--- NOTE | 2024-04-28 06:52 | SUR.OPER ---
Patient brought to GI Lab. Instructions for patient undergoing Capsule Endoscopy reviewed with patient. Consent form signed. Sensor array applied to patient's abdomen and connected to recorded. Patient swallowed capsule with 2 cups of water infused with Simethicone. Patient instructed they may have clear liquids at 0830 this AM and eat or drink at 1030 this AM. Patient instructed to return to GI Lab at 1500 this afternoon for removal of recording device and to call [phone] or to return to the hospital if any nausea and vomiting or abdominal pain is experienced.
== END 2024-04-28 05:28 | disposition home or self-care (01) ==
PROVIDERS: PCP Student in an Organized Health Care Education/Training Program; Referring Provider Nurse Practitioner Family; Visit Provider Internal Medicine Gastroenterology
PROC: 0DJ07ZZ Inspection of Upper Intestinal Tract, Via Natural or Artificial Opening (ICD-10-PCS; CPT 91110; principal; 2024-04-28 07:00)
DX: Z01.818 Encounter for other preprocedural examination (principal); D50.9 Iron deficiency anemia, unspecified
CPT/HCPCS: 91110

== ENCOUNTER 2024-05-01 14:03 | Emergency (ER) | payer MEDICARE, SELFPAY ==
--- NOTE | ~2024-05-01 | XR_ITS ---
EXAMINATION: XR chest 2V DATE: 05/01/2024 15:45 INDICATION: Weakness. TECHNIQUE: Frontal and lateral views of the chest were obtained. COMPARISON: Chest view 03/21/2024 FINDINGS: There is mild atelectasis at the lung bases. No pleural effusion or pneumothorax. Cardiomeg asim is noted. Surgical clips in the right upper quadrant are likely from cholecystectomy. IMPRESSION: 1. Mild atelectasis at the lung bases. 2. Cardiomegaly. Reviewed, dictated and finalized at location A.
--- NOTE | ~2024-05-01 | CT_ITS ---
EXAMINATION: CTA chest PE protocol DATE: 05/01/2024 21:04 INDICATION: Generalized weakness. Leg swelling. TECHNIQUE: Computed tomography angiography (CTA) of the chest was performed with 100 mL Omnipaque-350 intravenous contrast timed to evaluate the pulmonary arteries. Coronal maximum intensity projection 3D-reconstructions were created by the technologist. Automated exposure control and iterative reconst ruction technique were employed. The dose-length product was 448.61 mGy-cm. COMPARISON: Chest CT 04/26/2022 FINDINGS: There is mild scarring at the lung apices. There is mild atelectasis bilaterally. No pleura l effusion. Cardiomegaly is noted. There are coronary artery calcifications. No pericardial effusion. There is no pulmonary embolus. The liver demonstrates surface nodularity, consistent with cirrhosis. There are changes of cholecystectomy. There is mild splenomegaly. Thoracic kyphosis is noted. There are bridging endplate osteophytes at multiple levels in the spine, consistent with diffuse idiopathic skeletal hyperostosis (DISH). IMPRESSION: 1. No pulmonary embolus. 2. Cirrhosis of the liver with portal venous hypertension. Reviewed, dictated and finalized at location A.
[2024-05-01 14:56] VITALS: BP 152/59; PULSE 70; RESP 8; TEMP 36.6; O2SAT 99
--- NOTE | 2024-05-01 14:58 | ECG_ITS ---
Test Date: 2024-05-01 20:32:43 Measurements Intervals [place] Rate: 66 P: -6 [place]: 185 QRS: -18 QRSD: 131 T: -3 QT: 457 QTc: 481 Interpretive Statements SINUS RHYTHM RIGHT BUNDLE BRANCH BLOCK LEFT VENTRICULAR HYPERTROPHY BASELINE ARTIFACT- I ,II ,AVR, AVL, AVF, V1-V6 ABNORMAL ECG Compared to ECG 03/30/2024 11:49:09 NO SIGNIFICANT CHANGE Electronically Signed On 05-02-2024 06:38:52 CDT by Glenn Feliz D.O.
--- NOTE | 2024-05-01 14:59 | ED.WEAKNESS ---
HPI - Weakness General Chief complaint: Weakness <Lara Bucio PA-C - Last Filed: 05/02/24 14:22> Stated complaint: weakness, pcp sent with low b/p <Lara Bucio PA-C - Last Filed: 05/02/24 14:22> Time Seen by Provider: 05/01/24 14:59 <Lara Bucio PA-C - Last Filed: 05/02/24 14:22> Focused HPI: This is a 79-year-old female that presents to the emergency department for generalized weakness. Reports ongoing over the last couple of days. She was at her therapy appointment for her knees today and her blood pressure was low. They were concerned and told her she should go to the ER for further evaluation. Reports she is a little short of breath currently. She has history of anemia and needs transfusions sometimes GENERAL: Well-appearing, well-nourished, and in no acute distress. HEAD: Normocephalic, atraumatic. CHEST: Clear to auscultation. ?No respiratory distress. HEART: Regular rate and rhythm.? NEURO: ?Alert and oriented x3. Patient screened in triage and initial orders placed.? ?Additional care and disposition to be based upon?diagnostic testing and treatment. <Lara Bucio PA-C - Last Filed: 05/02/24 14:22> History of Present Illness HPI Narrative: Concur with the above following additions or corrections: Patient reports whole body generalized weakness. She has not had any unilateral symptoms. She notes that she has been feeling this way over the past several days but she did try to go to physical therapy this morning. When she arrived they told her that she looked unwell and they did not feel she should participate in physical therapy given her appearance. Her blood pressure at that time was 139/42 and they were concerned about the low diastolic blood pressure. They contacted her primary care physician, Dr. Shivam James, who recommended that she go to the emergency department. She recently discontinued for iron supplementation for her chronic anemia while she was undergoing the swallow pill study under the direction of her export freight manager Dr. Christian. She started to feel unwell when she stopped taking her iron but her pill study is now completed she has resumed iron supplementation yesterday. She has not yet had follow-up regarding the results of her pill study but has an upcoming appointment with her export freight manager. She has had an occasional cough but she states this is chronic her with no acute changes. She does feel short of breath though she attributes the dose to her asthma. She notes that she gets dyspnea on exertion particularly when going to the mailbox. She denies any chest pain. No fevers. She has previously required a blood transfusion for her anemia, in February 2024.. <Sole Dumont MD - Last Filed: 05/01/24 23:34> Related Data Home medications: Home Medications Medication Instructions Recorded Confirmed cyanocobalamin (vitamin B-12) 1,000 mcg PO DAILY 10/08/19 01/30/24 1,000 mcg capsule furosemide 20 mg tablet 20 mg PO DAILY 10/08/19 01/30/24 fenofibrate 160 mg tablet 145 mg PO DAILY 05/18/20 01/30/24 meloxicam 15 mg tablet 15 mg PO DAILY 05/18/20 01/30/24 atorvastatin 20 mg tablet 20 mg PO DAILY 03/13/21 01/30/24 citalopram 10 mg tablet 10 mg PO DAILY 03/13/21 01/30/24 lisinopril 20 mg tablet 40 mg PO DAILY 03/13/21 01/30/24 pantoprazole 40 mg tablet,delayed 40 mg PO QAM 03/13/21 01/30/24 release ferrous sulfate 325 mg (65 mg 325 mg PO DAILY 04/09/24 iron) tablet <Lara Bucio PA-C - Last Filed: 05/02/24 14:22> Allergies/Adverse reactions: Allergies Allergy/AdvReac Type Severity Reaction Status Date / Time No Known Allergies Allergy Verified 05/01/24 14:59 <Lara Bucio PA-C - Last Filed: 05/02/24 14:22> Review of Systems Review of Systems: All systems reviewed & are unremarkable except as noted in HPI and below <Lara Bucio PA-C - Last Filed: 05/02/24 14:22> PMFSH Past Medical History Me
[2024-05-01 15:11] LABS: Basophils Percent Auto 0.4 % (0.2-1.2); Eosinophils Absolute Auto 0.1 K/mm3 (0-0.3); Eosinophils Percent Auto 5.1 % (0-4.4); Hematocrit 26.9 % (37.0-47.0); Hemoglobin 8.6 g/dL (12.0-15.0); Immature Granulocyte Absolute 0.01 K/mm3 (0.00-0.031); Immature Granulocyte Percent A 0.4 % (0-0.5); Lymphocytes Absolute Auto 0.71 K/mm3 (0.9-3.2); Lymphocytes Percent Auto 27.7 % (18.3-44.2); Mean Corpuscular Volume 97.1 fl (80-100); Mean Platelet Volume 10.7 fl (7.4-10.4); Monocytes Absolute Auto 0.3 K/mm3 (0.1-0.6); Monocytes Percent Auto 9.8 % (2.6-8.5); Neutrophils Absolute Auto 1.5 K/mm3 (1.3-6.7); Neutrophils Percent Auto 56.6 % (45.5-73.1); Platelet Count Result 103 k/mm3 (150-375); Red Blood Count 2.77 M/mm3 (4.2-5.4); Red Cell Distribution Width 14.4 % (11.5-14.5); White Blood Count 2.6 K/mm3 (4.5-10.0)
[2024-05-01 15:33] LABS: Alanine Aminotransferase 28 U/L (6-35); Albumin Level 3.5 g/dL (3.5-5.1); Alkaline Phosphatase 98 U/L (38-126); Anion Gap 5 mmol/L (4-12); Aspartate Amino Transferase 50 U/L (14-36); Bilirubin,Total 0.7 mg/dL (0.2-1.3); Blood Urea Nitrogen 20 mg/dL (7-17); Calcium 10.2 mg/dL (8.4-10.2); Carbon Dioxide 33 mmol/L (22-30); Chloride 100 mmol/L (98-107); Estimated CRCL calculation 50 ml/min; Estimated Glomerular Filt Rate > 60; Glucose 105 mg/dL (65-110); Sodium 138 mmol/L (137-145)
[2024-05-01 20:35] VITALS: BP 153/71; PULSE 67; RESP 16; O2SAT 99
[2024-05-01 20:38] LABS: D Dimer 1.02 ug/mL (<0.48)
[2024-05-01 20:41] LABS: NT Pro B Type Natriuretic Pept 119 pg/mL (19.9-100); Troponin I < 0.012 ng/mL (0.000-0.034)
[2024-05-01] MEDS: SODIUM CHLORIDE 0.9% IV 1,000 ML 999 ML IV CONT (21:06)
[2024-05-01 21:07] VITALS: BP 160/68; PULSE 72; RESP 20; O2SAT 99
[2024-05-01 21:38] LABS: Add Urine Microscopic? NO; Appearance Urine Clear (Clear); Bilirubin Urine Negative (Negative); Blood Urine Negative (Negative); Color Urine Yellow (Yellow); Glucose Urine UA Negative (Negative); Ketones Urine Negative (Negative); Leukocyte Esterase Ur Negative LEU/UL (Negative); Nitrate Urine Negative (Negative); Protein Urine Negative (Negative); Specific Grav Ur 1.023 (1.001-1.035); pH Urine 8.5 (5.0-9.0)
[2024-05-01 22:13] LABS: Influenza A QL RT-PCR Negative (Negative); Influenza B QL RT-PCR Negative (Negative); RSV RNA, RT-PCR Negative (Negative); SARS-CoV-2 RNA PCR Negative (Negative)
[2024-05-01 22:15] VITALS: BP 149/62; BP 151/72; BP 155/70; PULSE 67; PULSE 70; PULSE 72
== END 2024-05-01 22:37 | disposition home or self-care (01) ==
PROVIDERS: Physician Assistant; Emergency Provider Student in an Organized Health Care Education/Training Program; PCP Student in an Organized Health Care Education/Training Program
DX: R53.1 Weakness (principal); R06.02 Shortness of breath; D61.818 Other pancytopenia; K74.60 Unspecified cirrhosis of liver; K76.6 Portal hypertension; D64.9 Anemia, unspecified; E11.9 Type 2 diabetes mellitus without complications; I10 Essential (primary) hypertension; K21.9 Gastro-esophageal reflux disease without esophagitis; E78.00 Pure hypercholesterolemia, unspecified; G47.33 Obstructive sleep apnea (adult) (pediatric); J45.909 Unspecified asthma, uncomplicated; Z20.822 Contact with and (suspected) exposure to COVID-19
CPT/HCPCS: 36415; 71046; 71275; 80053; 81003; 83880; 84484; 85025; 85380; 86850; 86900; 86901; 87637; 93005; 96360; 99284; J7030; Q9967

== ENCOUNTER 2024-05-13 14:02 | Outpatient (CLI) | payer MEDICARE, SELFPAY ==
[2024-05-13 14:22] LABS: Basophils Percent Auto 0.3 % (0.2-1.2); Eosinophils Absolute Auto 0.1 K/mm3 (0-0.3); Eosinophils Percent Auto 4.7 % (0-4.4); Hematocrit 23.5 % (37.0-47.0); Hemoglobin 7.4 g/dL (12.0-15.0); Immature Granulocyte Absolute 0.02 K/mm3 (0.00-0.031); Immature Granulocyte Percent A 0.7 % (0-0.5); Lymphocytes Absolute Auto 0.84 K/mm3 (0.9-3.2); Lymphocytes Percent Auto 27.9 % (18.3-44.2); Mean Corpuscular HGB Conc 31.5 g/dl (32-36); Mean Corpuscular Hemoglobin 31.9 pg (26-34); Mean Corpuscular Volume 101.3 fl (80-100); Mean Platelet Volume 10.3 fl (7.4-10.4); Monocytes Absolute Auto 0.3 K/mm3 (0.1-0.6); Neutrophils Absolute Auto 1.7 K/mm3 (1.3-6.7); Neutrophils Percent Auto 55.4 % (45.5-73.1); Platelet Count Result 119 k/mm3 (150-375); Red Blood Count 2.32 M/mm3 (4.2-5.4); Red Cell Distribution Width 16.7 % (11.5-14.5)
[2024-05-13 14:30] LABS: Anisocytosis 1+; Microcytosis 1+ (NORMAL); Platelet Estimate Decreased (Adequate); Schistocytes None Seen
[2024-05-13 18:42] LABS: Iron 188 ug/dL (37-170)
[2024-05-13 18:50] LABS: Alanine Aminotransferase 25 U/L (6-35); Albumin Level 3.5 g/dL (3.5-5.1); Alkaline Phosphatase 100 U/L (38-126); Anion Gap 6 mmol/L (4-12); Aspartate Amino Transferase 42 U/L (14-36); Bilirubin,Total 0.7 mg/dL (0.2-1.3); Blood Urea Nitrogen 26 mg/dL (7-17); Calcium 10.2 mg/dL (8.4-10.2); Carbon Dioxide 33 mmol/L (22-30); Chloride 96 mmol/L (98-107); Estimated Glomerular Filt Rate > 60; Glucose 129 mg/dL (65-110); Potassium 3.8 mmol/L (3.4-5.0); Sodium 135 mmol/L (137-145)
[2024-05-13 18:52] LABS: Percent Iron Saturation 52 % (20-50)
[2024-05-13 19:43] LABS: Vitamin B12 > 1000.0 pg/mL (239-931)
[2024-05-16 17:14] LABS: Methylmalonic Acid 216 nmol/L (69-390)
[2024-05-19 12:24] LABS: Soluble Transferrin Receptor 2.06 mg/L (0.76-1.76)
== END 2024-05-13 14:03 | disposition home or self-care (01) ==
LOC: ANHLAB 14:05
PROVIDERS: PCP Student in an Organized Health Care Education/Training Program; Visit Provider Internal Medicine Hematology & Oncology
DX: D64.9 Anemia, unspecified (principal)
CPT/HCPCS: 36415; 80053; 82607; 82728; 83540; 83550; 83921; 84238; 85025

== ENCOUNTER 2024-06-03 07:51 | Outpatient (CLI) | payer MEDICARE, SELFPAY ==
--- NOTE | ~2024-06-03 | US_ITS ---
Limited Abdominal Sonogram: Real-time sonographic imaging of the right upper quadrant was performed. Clinical History: Cirrhosis Findings: The liver appears heterogeneous, with no evidence of mass lesion or bile duct dilatation. Probable mildly nodular contour of liver. Main portal vein demonstrates normal direction of flow. The gallbladder is absent, compatible prior cholecystectomy. The common bile duct measures 4 mm. The vi sualized pancreas, aorta, and IVC are unremarkable. Impression: Heterogeneous hepatic echotexture with mildly nodular contour are findings compatible with cirrhosis. No focal hepatic mass or biliary dilatation seen. Status post cholecystectomy. Reviewed, dictated and finalized at [facility]. Impression: Heterogeneous hepatic echotexture with mildly nodular contour are findings comp atible with cirrhosis. No focal hepatic mass or biliary dilatation seen. Status post cholecystectomy.
== END 2024-06-03 07:52 | disposition home or self-care (01) ==
PROVIDERS: PCP Student in an Organized Health Care Education/Training Program; Visit Provider Internal Medicine Gastroenterology
DX: K74.60 Unspecified cirrhosis of liver (principal); Z90.49 Acquired absence of other specified parts of digestive tract
CPT/HCPCS: 76705

== ENCOUNTER 2024-06-12 16:19 | Emergency (ER) | payer MEDICARE, SELFPAY ==
--- NOTE | ~2024-06-12 | CT_ITS ---
CT cervical spine wo con Ordering provider: Angela Stewart PA-C History: . fall, hi . Comparison: January 24, 2024 Technique: CT of the cervical spine was performed without contrast. Sagittal and coronal reformatted images were also obtained and reviewed. Automated exposure control and iterative reconstruction kylie hnique were employed. The dose-length product was 386.81 mGy-cm. FINDINGS: VERTEBRAE: No subluxation or acute fracture. The occipital condyles are intact. Small hemangioma in T3. DISC SPACES: Degenerative disc disease at the level of C5-C6 and C6-C7. Multilevel facet joint diseas e. Multilevel uncovertebral joint osteoarthritic changes PARASPINOUS SOFT TISSUES: Normal. IMPRESSION: No acute osseous abnormality cervical spine. Reviewed, dictated and finalized at location A.
--- NOTE | ~2024-06-12 | CT_ITS ---
CT brain wo con Ordering provider: Angela Stewart PA-C History: 79 years Female with . fall, hi . Comparison: January 24, 2024 Technique: CT of the head without contrast. Radiation reduction technique utilized. The dose-length product was 681 mGy-cm. FINDINGS: BRAIN PARENCHYMA AND CSF SPACES: Mild leukoaraiosis and diffuse cortical atrophy. Mild atheromatous d isease. No midline shift, mass effect or hemorrhage. The brain parenchyma and CSF spaces are otherwi se normal. VISUALIZED PARANASAL SINUSES: Well aerated. MASTOIDS: Well aerated. BONES: The bones appear intact. SOFT TISSUES: Visualized nasopharynx is normal. Frontal scalp hematoma. Otherwise, Superficial soft tissues are normal. IMPRESSION: No acute intracranial findings. Reviewed, dictated and finalized at location A.
--- NOTE | ~2024-06-12 | CT_ITS ---
CT chest abdomen pelvis w con Ordering provider: Angela Stewart PA-C History: 79 years Female with . fall, L side pain/rib/abd . Comparison: None. Technique: CT chest with IV contrast. CT abdomen and pelvis CT abdomen and pelvis with IV and with or al contrast. Radiation reduction technique utilized. The dose-length product was 1089.18 mGy-cm. 100 mL Omnipaque 350 was given IV. FINDINGS: CHEST: --VISUALIZED THORACIC INLET: Nodules in both lobes of the thyroid larger on the right side. --MEDIASTINUM: Aorta/coronary arteries: Mild atheromatous disease. Heart/other: The heart is slightly enlarged.. Lymph nodes: No mediastinal or hilar adenopathy. --LUNGS: No pulmonary nodules or masses. No infiltrates or effusions. No pneumothorax. --MUSCULOSKELETAL: Soft tissues: The superficial soft tissues are normal. Bones: Age appropriate degenerative changes of the spine. No suspicious bony lytic or sclerotic lesio ns. ABDOMEN/PELVIS: --MUSCULOSKELETAL: Bones: Age appropriate degenerative changes of the spine. No suspicious bony lytic or sclerotic lesio ns. Superficial soft tissues: Minimal fat stranding in the left abdominal wall. Otherwise, The superficia l soft tissues are normal. --UPPER ABDOMINAL ORGANS: Liver: Lobulated outline which may indicate cirrhosis. Clinical correlation advised. Gallbladder: Status post cholecystectomy. Spleen: Small hypodensity which may be a cyst is seen measuring 9 mm. Stomach/duodenum: Slightly thickened wall. Clinical correlation advised. Pancreas: Normal. Adrenals: Normal. Kidneys: Small cyst in the right kidney mid pole. --PELVIC ORGANS: The bladder is underfilled. No bladder stones. --BOWEL AND MESENTERY: Colon: No evidence of diverticulitis. Impacted fecal material in the rectum. Normal appendix. Small Bowel: Normal. No obstruction. Peritoneum/mesentery: No free air or free fluid. No mesenteric lymphadenopathy. --RETROPERITONEUM: Mild atheromatous disease of the abdominal aorta. No retroperitoneal lymphadenop athy. IMPRESSION: CHEST: 1. No acute cardiopulmonary pathology. 2. No evidence of pneumothorax. No fractures seen. ABDOMEN/PELVIS: 1. No evidence of solid organ injury. 2. Minimal fat stranding in the subcutaneous tissues in the left abdominal wall. 3. No evidence of appendicitis, diverticulitis or intestinal obstruction. 4. Minimal lobulation of the liver outline. Clinical correlation for cirrhosis is advised. Reviewed, dictated and finalized at location A. IMPRESSION: CHEST: 1. No acute cardiopulmonary pathology. 2. No evidence of pneumothorax. No fractures seen. ABDOMEN/PELVIS: 1. No evidence of solid organ injury. 2. Minimal fat stranding in the subcutaneous tissues in the left abdominal wal l. 3. No evidence of appendicitis, diverticulitis or intestinal obstruction. 4. Minimal lobulation of the liver outline. Clinical correlation for cirrhosis is advised.
[2024-06-12 16:26] VITALS: BP 121/54; PULSE 79; RESP 15; TEMP 36.5; O2SAT 100
--- NOTE | 2024-06-12 17:10 | ED.FALL ---
HPI - Fall General Chief Complaint: Fall Stated Complaint: fell last night Time Seen by Provider: 06/12/24 16:52 Source: patient Mode of arrival: ambulatory Limitations: no limitations History of Present Illness HPI Narrative: Patient is a 79 y/o female who presents to the ED with c/o a fall. Patient reports she slipped in her socks as she was going to the bathroom in the middle the night around 3:00 a.m.. She did hit her head, sustained contusion to frontal region. Denies LOC. also complains of pain to her left side. Has bruising to her left-sided abdomen. Reports pain is worse with movement, coughing, sitting up. Has not taken anything for pain. Denies neck or back pain, dizziness, lightheadedness, vision changes, shortness of breath. No blood thinners. Related Data Home Medications Medication Instructions Recorded Confirmed cyanocobalamin (vitamin B-12) 1,000 mcg PO DAILY 10/08/19 05/29/24 1,000 mcg capsule furosemide 20 mg tablet 20 mg PO DAILY 10/08/19 05/29/24 fenofibrate 160 mg tablet 145 mg PO DAILY 05/18/20 05/29/24 meloxicam 15 mg tablet 15 mg PO DAILY 05/18/20 05/29/24 atorvastatin 20 mg tablet 20 mg PO DAILY 03/13/21 05/29/24 citalopram 10 mg tablet 10 mg PO DAILY 03/13/21 05/29/24 lisinopril 20 mg tablet 40 mg PO DAILY 03/13/21 05/29/24 pantoprazole 40 mg tablet,delayed 40 mg PO QAM 03/13/21 05/29/24 release ferrous sulfate 325 mg (65 mg 325 mg PO DAILY 04/09/24 05/29/24 iron) tablet Allergies Allergy/AdvReac Type Severity Reaction Status Date / Time No Known Allergies Allergy Verified 06/12/24 16:20 Review of Systems Review of Systems: All systems reviewed & are unremarkable except as noted in HPI. All systems reviewed & are unremarkable except as noted in HPI and below PMFSH Past Medical History Medical History Abnormal laboratory test Adenomatous colon polyp Anxiety Asthma Cirrhosis Colon cancer screening Diabetes Hemoglobin A1c 5.26 February 2020 Diverticulosis Essential hypertension Gastroesophageal reflux disease Hypercholesterolemia DEJA (obstructive sleep apnea) No longer on CPAP after 100 lb weight loss Pancreatitis gallstone Pancytopenia Psoriasis Thrombocytopenia Surgical History Surgical History History of cholecystectomy History of colonoscopy with polypectomy History of total left knee replacement (10/2019) Hx of hysterectomy Due to uterine cancer Family History Family History Father Asthma Mother Hypertension Diabetes mellitus Acute myocardial infarction Sibling End-stage renal disease on hemodialysis sister COPD (chronic obstructive pulmonary disease) brother and sister Acute myocardial infarction 2 brothers Renal cancer sister Social History Social History Social History: She has 2 sons. 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 patient is a lifelong nonsmoker. She does not use any alcohol marijuana illicit drugs. The patient desires to be a full code. Her oldest son is the durable power insurance defense attorney for healthcare. Code status: Full code Surrogate decision maker: Oldest son Smoking status: Never smoker Alcohol intake: never Substance use: never Substance use type: does not use Living arrangements: alone Additional living arrangements comments: She lives in her own home. She has been since 1989 Occupation/Education: retired Spiritual care concerns: No Agree to blood products: Yes Exam Narrative: GENERAL: Elderly, well-nourished, non-toxic, in no acute distress. HEAD: Normocephalic. Contusions to forehead and superior scalp. No bleeding or wounds. NECK: No midline spinal tenderness. RESPIRATORY: Airway p
[2024-06-12] MEDS: ACETAMINOPHEN 500 MG TABLET 1000 MG PO (17:21)
[2024-06-12] MEDS: traMADol HCL (*CRX) 25 MG TABLET PO (17:22)
[2024-06-12 17:31] VITALS: BP 111/48; PULSE 67; RESP 16; O2SAT 98
[2024-06-12 17:41] LABS: Estimated CRCL calculation 34 ml/min; Estimated Glomerular Filt Rate 48
[2024-06-12 19:02] VITALS: BP 117/52; PULSE 68; RESP 20; TEMP 36.6; O2SAT 100
== END 2024-06-12 19:10 | disposition home or self-care (01) ==
PROVIDERS: Emergency Provider Physician Assistant; PCP Student in an Organized Health Care Education/Training Program
DX: S00.83XA Contusion of other part of head, initial encounter (principal); S30.1XXA Contusion of abdominal wall, initial encounter; I10 Essential (primary) hypertension; E11.9 Type 2 diabetes mellitus without complications; E78.00 Pure hypercholesterolemia, unspecified; J45.909 Unspecified asthma, uncomplicated; K74.60 Unspecified cirrhosis of liver; K21.9 Gastro-esophageal reflux disease without esophagitis; G47.33 Obstructive sleep apnea (adult) (pediatric); L40.9 Psoriasis, unspecified; F41.9 Anxiety disorder, unspecified; Z96.652 Presence of left artificial knee joint; Z86.0101 Personal history of adenomatous and serrated colon polyps; Z85.42 Personal history of malignant neoplasm of other parts of uterus; Z90.49 Acquired absence of other specified parts of digestive tract; Z90.710 Acquired absence of both cervix and uterus; Z79.899 Other long term (current) drug therapy; W01.0XXA Fall on same level from slipping, tripping and stumbling without subsequent striking against object, initial encounter
CPT/HCPCS: 70450; 71260; 72125; 74177; 99284; A9270; Q9967

== ENCOUNTER 2024-06-17 12:27 | Outpatient (CLI) | payer MEDICARE, SELFPAY ==
[2024-06-17 12:55] LABS: Basophils Percent Auto 0.4 % (0.2-1.2); Eosinophils Absolute Auto 0.1 K/mm3 (0-0.3); Eosinophils Percent Auto 4.3 % (0-4.4); Hematocrit 28.6 % (37.0-47.0); Hemoglobin 8.8 g/dL (12.0-15.0); Immature Granulocyte Absolute 0.01 K/mm3 (0.00-0.031); Immature Granulocyte Percent A 0.4 % (0-0.5); Lymphocytes Percent Auto 24.9 % (18.3-44.2); Mean Corpuscular HGB Conc 30.8 g/dl (32-36); Mean Corpuscular Hemoglobin 32.6 pg (26-34); Mean Corpuscular Volume 105.9 fl (80-100); Mean Platelet Volume 10.8 fl (7.4-10.4); Monocytes Absolute Auto 0.3 K/mm3 (0.1-0.6); Monocytes Percent Auto 9.6 % (2.6-8.5); Neutrophils Absolute Auto 1.7 K/mm3 (1.3-6.7); Neutrophils Percent Auto 60.4 % (45.5-73.1); Platelet Count Result 113 k/mm3 (150-375); Red Cell Distribution Width 13.6 % (11.5-14.5); White Blood Count 2.8 K/mm3 (4.5-10.0)
[2024-06-17 19:47] LABS: Alanine Aminotransferase 17 U/L (6-35); Albumin Level 3.8 g/dL (3.5-5.1); Alkaline Phosphatase 59 U/L (38-126); Anion Gap 5 mmol/L (4-12); Aspartate Amino Transferase 32 U/L (14-36); Bilirubin,Total 0.7 mg/dL (0.2-1.3); Blood Urea Nitrogen 30 mg/dL (7-17); Calcium 10.3 mg/dL (8.4-10.2); Carbon Dioxide 32 mmol/L (22-30); Chloride 100 mmol/L (98-107); Estimated Glomerular Filt Rate > 60; Glucose 116 mg/dL (65-110); Iron 201 ug/dL (37-170); Potassium 4.1 mmol/L (3.4-5.0); Sodium 137 mmol/L (137-145)
[2024-06-17 19:57] LABS: Percent Iron Saturation 45 % (20-50)
[2024-06-17 21:23] LABS: Folic Acid > 20.0 ng/mL (2.76->20); Vitamin B12 > 1000.0 pg/mL (239-931)
== END 2024-06-17 12:28 | disposition home or self-care (01) ==
LOC: ANHLAB 12:30
PROVIDERS: PCP Student in an Organized Health Care Education/Training Program; Visit Provider Internal Medicine Hematology & Oncology
DX: D64.9 Anemia, unspecified (principal)
CPT/HCPCS: 36415; 80053; 82607; 82728; 82746; 83540; 83550; 85025

== ENCOUNTER 2024-08-10 10:52 | Outpatient (CLI) | payer MEDICARE, SELFPAY ==
--- NOTE | ~2024-08-10 | XR_ITS ---
Right Knee Technique: AP, lateral, and sunrise views were obtained. Clinical History: Pain Findings: No fracture or dislocation is seen. There is mild medial compartment narrowing. Mild tricom partmental degenerative spurring present. Soft tissues are unremarkable. No joint effusion is seen. Impression: Degenerative change, as above. Reviewed, dictated and finalized at location M. [facility] Impression: Degenerative change, as above.
--- NOTE | ~2024-08-10 | XR_ITS ---
Left Knee Technique: AP, lateral, and sunrise views were obtained. Clinical History: Pain Findings: No fracture or dislocation is seen. Left knee arthroplasty in place. Soft tissues are unrem arkable. No joint effusion is seen. Impression: No acute abnormality. Left knee arthroplasty. Reviewed, dictated and finalized at location . [facility] Impression: No acute abnormality. Left knee arthroplasty.
== END 2024-08-10 10:53 | disposition home or self-care (01) ==
PROVIDERS: PCP Student in an Organized Health Care Education/Training Program; Visit Provider Orthopaedic Surgery
DX: M17.11 Unilateral primary osteoarthritis, right knee (principal); Z96.652 Presence of left artificial knee joint
CPT/HCPCS: 73562; 73564

== ENCOUNTER 2024-09-29 13:47 | Emergency (ER) | payer MEDICARE, SELFPAY ==
--- NOTE | ~2024-09-29 | US_ITS ---
EXAMINATION: US venous doppler LE RT DATE: 09/29/2024 15:07 INDICATION: Right calf pain. TECHNIQUE: Grayscale ultrasound images without and with compression and Doppler ultrasound images of the right lower extremity veins were obtained. COMPARISON: None. FINDINGS: The visualized portions of right common femoral vein, profunda (deep) femoral vein, femoral vein, pop liteal vein, peroneal veins, posterior tibial veins, and greater saphenous vein outflow are patent. IMPRESSION: 1. No deep venous thrombosis. Reviewed, dictated and finalized at location A. CE MANAGER
--- NOTE | ~2024-09-29 | XR_ITS ---
EXAMINATION: XR chest 2V DATE: 09/29/2024 15:20 INDICATION: Rib cage pain. TECHNIQUE: Frontal and lateral views of the chest were obtained. COMPARISON: Chest 2 views 05/01/2024 FINDINGS: There is no pneumonia, pleural effusion, or pneumothorax. Cardiomegaly is noted. IMPRESSION: 1. Cardiomegaly. Reviewed, dictated and finalized at location A. ARCH AND DEVELOPMENT RESEARCHER IMPRESSION: 1. Cardiomegaly.
--- NOTE | ~2024-09-29 | CT_ITS ---
EXAMINATION: CT brain wo con DATE: 09/29/2024 15:05 INDICATION: Head injury. TECHNIQUE: Computed tomography (CT) of the head was performed without intravenous contrast. The mA wa s adjusted according to patient size. Iterative reconstruction technique was employed. The dose-lengt h product was 681.00 mGy-cm. COMPARISON: Head CT 06/12/2024 FINDINGS: There is no intracranial hemorrhage, acute infarction, or abnormal intracranial mass lesion . The ventricles are normal in size. The paranasal sinuses are clear. There are likely changes of ocu lar lens replacement surgeries. The mastoid air cells are normal. IMPRESSION: 1. Normal brain. Reviewed, dictated and finalized at location A. WORKER IMPRESSION: 1. Normal brain.
--- NOTE | ~2024-09-29 | XR_ITS ---
EXAMINATION: XR knee RT min 4V DATE: 09/29/2024 15:20 INDICATION: Right knee pain. Fall. TECHNIQUE: 5 views of right knee were obtained. COMPARISON: Right knee radiographs 08/10/2024 FINDINGS: Alignment is normal. No fracture. There is severe osteoarthritis of medial compartment and moderate osteoarthritis of lateral and patellofemoral compartments. There is a small knee joint effus ion. IMPRESSION: 1. Severe right knee osteoarthritis. 2. Small right knee joint effusion. Reviewed, dictated and finalized at location A. GATION SECRETARY
--- OUTSIDE RECORDS SUMMARY | 2024-09-29 13:58 | XMS_ITS | Clinical Summary ---
Author Organization [facility] Address [address], [address] [place] [address] Phone Care Team Providers Care Ship Engines Operating Engineer Name Role Phone Grupo Shivam P DO Primary Care Provider + Trini Lazaro MD Unavailable Jordi Olguin MD Unavailable [phone] Allergies No known active allergies Medications citalopram (CeleXA) 10 MG Tablet Take 1 Tablet by mouth daily. 4 Active furosemide (LASIX) 20 MG Tablet Take 1 Tablet by mouth daily. 4 Active pantoprazole (PROTONIX) 40 MG Tablet Delayed Response Take 1 Tablet by mouth daily. 4 Active Cyanocobalamin (VITAMIN B-12 PO) Take by mouth. Active Cholecalciferol (VITAMIN D-3 PO) Take by mouth. Active FeroSul 325 (65 Fe) MG Tablet Take 325 mg by mouth. 4 Active acetaminophen (TYLENOL) 325 MG Tablet Take 650 mg by mouth. 4 Active fenofibrate (TRICOR) 145 MG Tablet Take 1 Tablet by mouth daily. 3 Active lisinopril (PRINIVIL, ZESTRIL) 20 MG Tablet Take 20 mg by mouth daily. 4 05/20/20 25 Active atorvastatin (LIPITOR) 80 MG Tablet Take 80 mg by mouth. 09/24/19 Discontinu ed(Med List Clean Up) CALCIUM-MAGNESI UM-ZINC PO Take 1 Tablet by mouth daily. 09/24/19 Discontinu ed(Med List Clean Up) Active Problems Problem Noted Date Diagnosed Date MDS (myelodysplastic syndrome), low grade 2023 Pancytopenia 01/06/2024 Hypertension Encounters Date Type Department Care Team Description 09/28/2024 11:00 AM ARMED GUARD Lab [facility] [address] [address] Nurse, Cc Lynette MDS (myelodysplastic syndrome), low grade (HCC) (Primary Dx); Pancytopenia (HCC) 09/28/2024 Telephone [facility] [address] [address] Jordi Olguin MD 09/28/2024 Travel 09/28/2024 Telephone [facility] [address] [address] Jordi Olguin MD Canopy Call / Weekly CBC and EPO 09/24/2024 1:00 PM ARMED GUARD Office Visit [facility] [address] [address] Jordi Olguin MD MDS (myelodysplastic syndrome), low grade (HCC) (Primary Dx) 09/21/2024 2:15 PM ARMED GUARD Clinical Support [facility] [address] [address] Nurse, Cc Lynette MDS (myelodysplastic syndrome), low grade (HCC) (Primary Dx) 09/21/2024 2:00 PM ARMED GUARD Office Visit [facility] [address] [address] Renetta Urbina APRN, ATTRACTIONS ASSOCIATE MDS (myelodysplastic syndrome), low grade (HCC) (Primary Dx); Pancytopenia (HCC) 09/21/2024 1:45 PM ARMED GUARD Lab [facility] [address] [address] Lab, Cc [place] Pancytopenia (HCC); MDS (myelodysplastic syndrome), low grade (HCC) 09/21/2024 Telephone [facility] [address] [phone] Jordi Olguin MD 09/21/2024 Travel 09/07/2024 1:30 PM ARMED GUARD Clinical Support [facility] [address] [phone] Nurse, Cc Ofallon MDS (myelodysplastic syndrome), low grade (HCC) (Primary Dx); Pancytopenia (HCC) 09/07/2024 Travel 08/24/2024 2:15 PM ARMED GUARD Clinical Support [facility] [address] [phone] Nurse, Cc [place]on MDS (myelodysplastic syndrome), low grade (HCC) (Primary Dx) 08/24/2024 2:00 PM ARMED GUARD Office Visit [facility] [address] [phone] Renetta Urbina APRN, [place] Pancytopenia (HCC) (Primary Dx); MDS (myelodysplastic syndrome), low grade (HCC) 08/24/2024 1:45 PM ARMED GUARD Lab [facility] [address] [phone] Lab, Cc [place] Pancytopenia (HCC); MDS (myelodysplastic syndrome), low grade (HCC) 08/24/2024 Travel 08/10/2024 2:15 PM ARMED GUARD Clinical Support [facility] [address] [phone] Nurse, Cc [place] Pancytopenia (HCC) (Primary Dx); MDS (myelodysplastic syndrome), low grade (HCC) 08/10/2024 Travel 07/27/2024 2:15 PM ARMED GUARD Clinical Support [facility] [address] [phone] Nurse, Cc [place] MDS (myelodysplastic syndrome), low grade (HCC) (Primary Dx); Pancytopenia (HCC) 07/27/2024 2:00 PM ARMED GUARD Office Visit [facility] [address] [phone] Gay Dye APRN, [place] MDS (myelodysplastic syndrome), low grade (HCC) (Primary Dx); Pancytopenia (HCC) 07/27/2024 1:45 PM ARMED GUARD Lab [facility] [address] [phone] Lab, Cc [place] Pancytopenia (HCC); MDS (myelodysplastic syndrome), low grade (HCC) 07/27/2024 Travel 07/13/2024 1:45 PM ARMED GUARD Clinical Support [facility] [address] [phone] Nurse, Cc [place] MDS (myelodysplastic syndrome), low grade (HCC) (Primary Dx) 07/13/2024 1:35 PM ARMED GUARD Lab [facility] [address] [phone] Lab, Cc [place] Pancytopenia (HCC); MDS (myelodysplastic syndrome), low grade (HCC) 07/13/2024 Telephone [facility] [address] [phone] Jordi Olguin MD 07/13/2024 Travel 06/29/2024 2:00 PM ARMED GUARD Clinical Support [facility] [address] [phone] Nurse, Cc [place] MDS (myelodysplastic syndrome), low grade (HCC) (Primary Dx) 06/29/2024 2:00 PM ARMED GUARD Office Visit [facility] [address] [phone] Jordi Olguin MD Pancytopenia (HCC) (Primary Dx); MDS (myelodysplastic syndrome), low grade (HCC) 06/29/2024 Travel from Last 3 Months Immunizations Immunization Administration Dates Next Due Influenza, High-dose, Quadrivalent 06/13/2022,,06/18/2020 Influenza, Quadrivalent, Adjuvanted 07/01/2023 Influenza, Trivalent, Adjuvanted, PF 06/23/2024 RSV, Bivalent, Protein Subun it Rsvpref, Diluent Reconstit (Abrysvo) 06/23/2024 Family History Medical History Relation Name Comments Chronic Obstructive Pulmonary Disease Brother 1 Cancer Brother 2 Diabetes Maternal Grandmother Dementia Mother Diabetes Mother Cancer Sister 1 Dementia Sister 2 Diabetes Sister 2 Heart Disease Sister 2 Relation Name Status Comments Brother 1 Brother 2 Child 1 Alive Child 2 Alive Father Maternal Grandmother Mother Sister 1 Sister 2 Social History Tobacco Use Types Packs/Day Years Used Date Smoking Tobacco: Never Smokeless Tobacco: Never Tobacco Cessation:Counseling Given: Not Answered Alcohol Use Standard Drinks/Week Comments Never 0 (1 standard drink = 0.6 oz pur e alcohol) Comments Unknown Sex and Gender Information Value Date Recorded Sex Assigned at Not on file Legal Sex Female 1:28 PM CDT Gender Identity Not on file Sexual Orientation Not on file Last Filed Vital Signs Vital Sign Reading Time Taken Comments Blood Pressure 118/62 09/24/2024 1:09 PM ARMED GUARD Pulse 77 09/24/2024 1:09 PM ARMED GUARD Temperature 36.4 ??C (97.5 ??F) 09/24/2024 1:09 PM CS T Respiratory Rate 18 09/24/2024 1:09 PM ARMED GUARD Oxygen Saturation 97% 09/24/2024 1:09 PM ARMED GUARD Inhaled Oxygen Concentration - - Weight 73.8 kg (162 lb 9.6 oz) 09/24/2024 1:09 P M ARMED GUARD Height 154.9 cm (5' 1 ) 09/24/2024 1:09 PM ARMED GUARD Body Mass Index 30.72 09/24/2024 1:09 PM ARMED GUARD Plan of Treatment Upcoming Encounters Date Type Department Care Team (Late st Contact Info) Description 10/05/2024 1:35 PM ARMED GUARD Lab [facility] [address] [address] Lab, [facility] 10/05/2024 1:45 PM ARMED GUARD [facility] [address] [phone] Jordi Olguin MD [address] [place], [place] [phone] 10/12/2024 11:00 AM ARMED GUARD Lab [facility] [address] [address] Lab, [facility] 10/19/2024 11:00 AM ARMED GUARD Lab [facility] [address] [phone] Lab, [facility] 10/26/2024 12:45 AM ARMED GUARD Lab [facility] [address] [phone] Lab, [facility] 10/26/2024 1:00 PM ARMED GUARD Office Visit [facility] [address] [phone] Jordi Olguin MD [facility] [place], [place] [phone] Health Maintenance Due Date Last Done Comments DEXA Bone Density 1945 TdaP Immunization 1945 Zoster Immunization (1 of 2) 1965 SARS-COV-2 Immunization (7 - Pfizer risk 2023- season) 2024 06/23/2024, 07/01/2023, 06/13/2022, Additional history exists Pneumococcal Immunization (50+ years) Completed 02/18/2018, 02/08/2017 Hepatitis C Virus (HCV) Screening Completed 02/04/2024, 02/01/2023 Influenza Immunization Completed , 07/01/2023, 06/13/2022, Additional history exists Respiratory Syncytial Virus (RSV) Immunization (Adult) Completed 06/23/2024 Hepatitis B Immunization Aged Out No longer eligible based on patient's age to complete this topic Meningococcal Immunization (ACWY) Aged Out No longer eligible based on patient's age to complete this topic Rotavirus Immunization Aged Out No lo nger eligible based on patient's age to complete this topic Procedures Procedure Name Priority Date/Time Associated Diagnosis Comments COMPLETE BLOOD COUNT (CBC) WITH DIFF Routine 09/28/2024 11:02 AM ARMED GUARD Pancytopenia (HCC) MDS (myelodysplastic syndrome), low grade (HCC) CMP (COMPREHENSIVE METABOLIC PANEL) Routine 09/21/2024 1:55 PM ARMED GUARD Pancytopenia (HCC) MDS (myelodysplastic syndrome), low grade (HCC) COMPLETE BLOOD COUNT (CBC) WITH DIFF Routine 09/21/2024 1:55 PM ARMED GUARD Pancytopenia (HCC) MDS (myelodysplastic syndrome), low grade (HCC) IRON W/ IRON BINDING CAPACITY OH Routine 09/21/2024 1:55 PM ARMED GUARD Pancytopenia (HCC) MDS (myelodysplastic syndrome), low grade (HCC) FERRITIN Routine 09/21/2024 1:55 PM ARMED GUARD Pancytopenia (HCC) MDS (myelodysplastic syndrome), low grade (HCC) CBC WITH AUTO DIFF OH Routine 09/07/2024 1:30 PM ARMED GUARD MDS (myelodysplastic syndrome), low grade (HCC) COMPLETE BLOOD COUNT (CBC) WITH DIFF Routine 08/24/2024 2:05 PM ARMED GUARD Pancytopenia (HCC) MDS (myelodysplastic syndrome), low grade (HCC) IRON W/ IRON BINDING CAPACITY OH Routine 08/24/2024 2:05 PM ARMED GUARD Pancytopenia (HCC) MDS (myelodysplastic syndrome), low grade (HCC) RETICULOCYTE COUNT (RETIC) Routine 08/24/2024 2:05 PM ARMED GUARD Pancytopenia (HCC) MDS (myelodysplastic syndrome), low grade (HCC) FERRITIN Routine 08/24/2024 2:05 PM ARMED GUARD Pancytopenia (HCC) MDS (myelodysplastic syndrome), low grade (HCC) CBC WITH AUTO DIFF OH Routine 08/10/2024 1:48 PM ARMED GUARD Pancytopenia (HCC) CBC WITH AUTO DIFF OH Routine 07/27/2024 1:52 PM ARMED GUARD MDS (myelodysplastic syndrome), low grade (HCC) COMPLETE BLOOD COUNT (CBC) WITH DIFF Routine 07/13/2024 1:41 PM ARMED GUARD Pancytopenia (HCC) MDS (myelodysplastic syndrome), low grade (HCC) COMPLETE BLOOD COUNT (CBC) WITH DIFF Routine 06/29/2024 2:44 PM ARMED GUARD MDS (myelodysplastic syndrome), low grade (HCC) from Last 3 Months Results * (ABNORMAL) COMPLETE BLOOD COUNT (CBC) WITH DIFF (09/28/2024 11:02 AM ARMED GUARD) Only the most recent of5 resultswithin the time period is included. WBC 2.6(L) 4.0 - 10.0 10*3/uL [facility] HGB 6.4(LL) 11.2 - 15.7 g/dL [facility] Comment: Critical Result reported to Keerthi Briones on 09/28/2024 11:24 by ? Nathanael Hansen. Results were read back to caller. HCT 21.4(L) 34.1 - 44.9 % [facility] PLT 93(L) 163 - 369 10*3/uL [facility] MPV 11.0 9.4 - 12.4 fL [facility] RBC 2.16(L) 3.93 - 5.22 10*6/uL [facility] MCV 99(H) 79 - 95 fL [facility] MCH 29.6 25.6 - 32.2 pg [facility] MCHC 29.9(L) 32.2 - 36.5 g/dL [facility] RDW 14.7(H) 11.6 - 14.4 % [facility] Absolute Neutrophil Count 1,415 cells/uL [facility] Absolute Seg Count 1,415(L) 1,440 - 6,600 cells/uL [facility] Absolute Lymph Count 996 760 - 4,000 cells/uL [facility] Absolute Bullitt Count 210 160 - 1,200 cells/uL [facility] Segmented Neutrophils 54 36 - 66 % [facility]ICE [facility] Lymphocytes 38 19 - 40 % [facility]CER C ENTER [facility] Monocytes 8 4 - 12 % CANCER CODY TER SPECIALISTS [facility] WBC Estimate Low [facility] Platelet Estimate Low [facility] RBC Morphology Abnormal CANCE R SERVICE CAPTAIN [facility] Macrocytosis 1+ [facility]ICE [facility] Blood 09/28/2024 11:0 2 AM ARMED GUARD Narrative [facility] - 09/28/2024 1:24 PM ARMED GUARD Release to patient->Immediate Renetta Urbina APRN, ATTRACTIONS ASSOCIATE HEMATOLOGY ORDERABLES Final Result Performing Organization Address [facility] Co de Phone Number [facility] SERVICE [facility] Cancer Care [place] [address] [place] [address], [place] [phone] * (ABNORMAL) IRON W/ IRON BINDING CAPACITY [place] (09/21/2024 1:55 PM ARMED GUARD) Only the most recent of2 resultswithin the time period is included. IRON 263(H) 50 - 212 ug/dL [facility] UIBC 80(L) 155 - 355 ug/dL [facility] SERVICE [facility] TIBC 343 261 - 478 ug/dl [facility] SERVICE [facility] % Saturation 77(H) 20 - 50 % [facility] 09/21/2024 1:55 PM ARMED GUARD Narrative [facility] - 09/21/2024 2:44 PM ARMED GUARD Release to patient->Immediate Renetta Urbina APRN, ATTRACTIONS ASSOCIATE LAB SEND OUTS Final Result Performing Organization Address City/[facility]/ZIP Co de Phone Number [facility] SERVICE [facility] Cancer Care [address] [place] [address], * FERRITIN (09/21/2024 1:55 PM ARMED GUARD) Only the most recent of2 resultswithin the time period is included. Ferritin 16 11 - 307 ng/mL [facility] SERVICE [facility] Blood 09/21/2024 1:55 PM ARMED GUARD Narrative [facility] - 09/22/2024 2:20 PM ARMED GUARD Release to patient->Immediate Renetta Urbina VEGETABLE THINNER, ATTRACTIONS ASSOCIATE CHEMISTRY ORDERABLES Final Result [facility] Cancer Care Special[facility] [place] [address], * (ABNORMAL) CMP (COMPREHENSIVE METABOLIC PANEL) (09/21/2024 1:55 PM ARMED GUARD) Glucose 181(H) 70 - 105 mg/dL [facility] Blood Urea Nitrogen 28(H) 7 - 25 mg/dL [facility] Creatinine 0.8 0.6 - 1.2 mg/dL [facility] Sodium 140 136 - 145 mEq/L [facility] Potassium 3.9 3.5 - 5.1 mEq/L [facility] Chloride 104 98 - 107 mEq/L [facility] Bicarbonate 31 21 - 31 mEq/L [facility] Total Bilirubin 0.9 0.3 - 1.0 mg/dL [facility] Alk. Phosphatase 66 34 - 104 U/L [facility] Aspartate Aminotransferase 23 13 - 39 U/L [facility] Alanine Aminotransferase 15 7 - 52 U/L [facility] Total Protein 5.3(L) 6.4 - 8.9 g/dL [facility] Albumin 3.3(L) 3.5 - 5.7 g/dL [facility] Calcium 9.9 8.6 - 10.3 mg/dL [facility] Anion Gap 8.9 7.0 - 15.0 mEq/L [facility] Globulin 2.0 2.0 - 3.5 g/dL [facility] EGFR 75 >60 ml/min/1. 73m2 [facility] Comment: This eGFR is calculated using 2020 CKD-EPI Creatinine equation without race modifier based on the NKF-ASN task force recommendations Blood 09/21/2024 1:55 PM ARMED GUARD Narrative [facility] - 09/21/2024 2:44 PM ARMED GUARD Release to patient->Immediate IS THE PATIENT REQUIRED TO BE FASTING FOR 8 HOURS?->No us Renetta Urbina VEGETABLE THINNER, ATTRACTIONS ASSOCIATE CHEMISTRY ORDERABLES Final Result [facility] Cancer [facility] Special[facility] [place] [address], * (ABNORMAL) CBC WITH AUTO DIFF [place] (09/07/2024 1:30 PM ARMED GUARD) Only the most recent of3 resultswithin the time period is included. WBC 3.8(L) 4.0 - 10.0 10*3/uL [facility] HGB 9.0(L) 11.2 - 15.7 g/dL [facility] HCT 28.4(L) 34.1 - 44.9 % [facility] PLT 87(L) 163 - 369 10*3/uL [facility] MPV 10.8 9.4 - 12.4 fL [facility] RBC 2.81(L) 3.93 - 5.22 10*6/uL [facility] MCV 101(H) 79 - 95 fL [facility] MCH 32.0 25.6 - 32.2 pg [facility] MCHC 31.7(L) 32.2 - 36.5 g/dL [facility] RDW 14.5(H) 11.6 - 14.4 % [facility] Neutrophils % 57.0 36.0 - 66.0 % [facility] Lymphocytes % 27.6 19.0 - 40.0 % [facility] Monocytes % 12.7(H) 4.1 - 12.1 % [facility] Eosinophils % 2.1 0.0 - 3.5 % [facility] Basophils % 0.3 0.0 - 1.0 % [facility] Absolute Neutrophils 2.2 1.4 - 6.6 10*3/uL [facility] Absolute Lymphocytes 1.0 0.8 - 4.0 10*3/uL [facility] Absolute Monocytes 0.5 0.2 - 1.2 10*3/uL [facility] Absolute Eosinophils 0.1 0.0 - 0.4 10*3/uL [facility] Absolute Basophils 0.0 0.0 - 0.1 10*3/uL [facility] 09/07/2024 1:30 PM ARMED GUARD Renetta Urbina VEGETABLE THINNER, ATTRACTIONS ASSOCIATE LAB SEND OUTS Final Result Performing Organization Address [facility] de Phone Number [facility] [place] [address], * (ABNORMAL) RETICULOCYTE COUNT (RETIC) (08/24/2024 2:05 PM ARMED GUARD) Reticulocyte count 4.27(H) 0.50 - 1.70 % [facility] RET-He 36.20 28.20 - 36.60 pg [facility] Comment: RET-He is a direct assessment of incorporation of iron into erythrocyte hemoglobin. It provides an indirect measure of the iron available for new erythropoiesis over past 2-4 days. Blood 08/24/2024 2:05 PM ARMED GUARD Narrative [facility] - 08/24/2024 2:15 PM ARMED GUARD Release to patient->Immediate Gay Dye APRN, ATTRACTIONS ASSOCIATE HEMATOLOGY ORDERABL ES Final Result Performing Organization Address [facility] Co de Phone Number [facility] [place] [address], from Last 3 Months Insurance [employer] Care Teams Ship Engines Operating Engineer Relationship Specialty Start Date End Date Shivam Lombardo DO [address] [place] [address] PCP - General Family Medicine 11/15/23 Trini Lazaro MD [address] [place] [address] Consulting Physician Oncology 11/15/23 Jordi Olguin MD [address] [place] [phone] Consulting Physician Oncology 05/11/24
--- OUTSIDE RECORDS SUMMARY | 2024-09-29 13:58 | XMS_ITS ---
Author Organization [facility] Address [address], [facility] [address] [place] [address] Phone Care Team Providers Care Wood Dowel Machine Operator Name Role Phone Shivam Lomabrdo Primary Care Provider + Trini Lazaro MD Unavailable Jordi Olguin MD Unavailable [phone] Active Problems Problem Noted Date Diagnosed Date MDS (myelodysplastic syndrome), low grade 2023 Pancytopenia 01/06/2024 Hypertension Current Treatment and Therapy Plans SUPPORT - PROCRIT - 2 WEEK - CCSCI* Plan Start Date:06/29/2024 Plan Provider:Jordi Olguin MD Linked Problems MDS (myelodysplastic syndrom e), low grade (HCC) Treatment Medications No medications scheduled. Past Treatment and Therapy Plans No past plan information found.
--- OUTSIDE RECORDS SUMMARY | 2024-09-29 13:58 | XMS_ITS | Encounter Summary ---
Author Organization [facility] Address [address] [place] [address]. [place], [place] [phone] [place] [address] Care Team Providers Care Mail Sorting Supervisor Name Role Phone Shivam Lombardo DO Primary Care Provider + Kimberly Vieira RN Unavailable [phone] Encounter Details Date Type Department Care Team (Late st Contact Info) Description 02/20/2023 [employer] Message Enc [facility] - [facility] [address] [place] [address] Store Eyes, [facility] Provider Air Quality Message Social History Tobacco Use Types Packs/Day Years Used Date Smoking Tobacco: Never Smokeless Tobacco: Never Alcohol Use Standard Drinks/Week Comments Never 0 (1 standard drink = 0.6 oz pur e alcohol) PHQ-2 Answer Date Recorded Patient Health Questionnaire-2 Score 0 10/15/2022 Comments No Sex and Gender Information Value Date Recorded Sex Assigned at Female 07/29/2024 1:13 PM VETERINARY PRACTITIONER Legal Sex Female 8:19 PM CDT Gender Identity Female 09/04/2021 4:46 PM VETERINARY PRACTITIONER Sexual Orientation Not on file Occupation Industry Job Start Date Job End Date Not on file Not on file Not on file Not on file documented as of this encounter Plan of Treatment Not on file documented as of this encounter Visit Diagnoses Not on filedocumented in this encounter Care Teams Mail Sorting Supervisor Relationship Specialty Start Date End Date Shivam Lombardo DO [address] [place] [address] PCP - General FAMILY PRACTICE 05/29/21 Kimberly Vieira, RN [address] [facility] [address] [place] [address] Registered Nurse CARE MANAGEMENT 03/23/24 documented as of this encounter
--- OUTSIDE RECORDS SUMMARY | 2024-09-29 13:58 | XMS_ITS | Encounter Summary ---
Author Organization [facility] Address [address] [place] [address] [address] Care Team Providers Care Freight Breaker Name Role Phone Shivam Lombardo DO Primary Care Provider + Kimberly Vieira RN Unavailable [phone] Encounter Details Date Type Department Care Team (Late st Contact Info) Description 11/15/2022 SocialComt Message Enc [facility] Family & Internal Medicine [facility] [address] [place] [address] Shivam Lombardo DO [address] [place] [address] Mammogram Results Social History Tobacco Use Types Packs/Day Years Used Date Smoking Tobacco: Never Smokeless Tobacco: Never Alcohol Use Standard Drinks/Week Comments Never 0 (1 standard drink = 0.6 oz pur e alcohol) PHQ-2 Answer Date Recorded Patient Health Questionnaire-2 Score 0 10/15/2022 Comments No Sex and Gender Information Value Date Recorded Sex Assigned at Female 07/29/2024 1:13 PM SEARCH ENGINE OPTIMIZATION STRATEGIST Legal Sex Female 8:19 PM CDT Gender Identity Female 09/04/2021 4:46 PM SEARCH ENGINE OPTIMIZATION STRATEGIST Sexual Orientation Not on file Occupation Industry Job Start Date Job End Date Not on file Not on file Not on file Not on file documented as of this encounter Plan of Treatment Not on file documented as of this encounter Visit Diagnoses Not on filedocumented in this encounter Care Teams Freight Breaker Relationship Specialty Start Date End Date Shivam Lombardo DO [address] [place] [address] PCP - General FAMILY PRACTICE 05/29/21 Kimberly Vieira, RN [address] [place] [address] Registered Nurse CARE MANAGEMENT 03/23/24 documented as of this encounter
--- OUTSIDE RECORDS SUMMARY | 2024-09-29 13:59 | XMS_ITS | Encounter Summary ---
Author Organization [facility] Address [address] [place] [address] Phone Care Team Providers Care Stock Analyst Name Role Phone Shivam Lombardo Primary Care Provider + Trini Lazaro MD Unavailable Jordi Olguin MD Unavailable [phone] Encounter Details Date Type Department Care Team (Late st Contact Info) Description 09/28/2024 Telephone [facility] [address] [address] Jordi Olguin MD [address] [address] Social History Tobacco Use Types Packs/Day Years Used Date Smoking Tobacco: Never Smokeless Tobacco: Never Alcohol Use Standard Drinks/Week Comments Never 0 (1 standard drink = 0.6 oz pur e alcohol) Comments Unknown Sex and Gender Information Value Date Recorded Sex Assigned at Not on file Legal Sex Female 1:28 PM CDT Gender Identity Not on file Sexual Orientation Not on file documented as of this encounter Miscellaneous Notes * Telephone Encounter - Keerthi Briones RN - 09/28/2024 11:[address] Olguin:give epo plus 1 unit prbc and weekly cbc epo Blood transfusion orders placed. Patient discharged to [facility] after injection to receive transfusion. Orders faxed to lynda Del Rosariohousekeeper/laundry assistant. Copy provided to patient prior to discharge. RESCUE CRAFTSMAN * Telephone Encounter - Keerthi Briones RN - 09/28/2024 11:25 AM CST Critical from lab Hgb 6.4 Hct 21.4 Please advise RESCUE CRAFTSMAN documented in this encounter Plan of Treatment Upcoming Encounters Date Type Department Care Team (Late st Contact Info) Description 10/05/2024 1:35 PM PARARESCUE CRAFTSMAN Lab [facility] [address] [address] Lab, [facility] 10/05/2024 1:45 PM PARARESCUE CRAFTSMAN Office Visit [facility] [address] [address] Jordi Olguin MD [address] [place], [place] [id number] 10/12/2024 11:00 AM PARARESCUE CRAFTSMAN Lab [facility] [address] [address] Lab, [facility] 10/19/2024 11:00 AM PARARESCUE CRAFTSMAN Lab [facility] [address] [address] Lab, [facility] 10/26/2024 12:45 AM PARARESCUE CRAFTSMAN Lab [facility] [address] [address] Lab, [facility] 10/26/2024 1:00 PM PARARESCUE CRAFTSMAN Office Visit [facility] [address] [address] Jordi Olguin MD [address] [place], [place] [address] documented as of this encounter Visit Diagnoses Not on filedocumented in this encounter Care Teams Stock Analyst Relationship Specialty Start Date End Date Shivam Lombardo DO [address] [place] [address] PCP - General Family Medicine 11/15/23 Trini Lazaro MD [address] [place] [address] Consulting Physician Oncology 11/15/23 Jordi Olguin MD [address] [place] [address] Consulting Physician Oncology 05/11/24 documented as of this encounter
--- OUTSIDE RECORDS SUMMARY | 2024-09-29 13:59 | XMS_ITS | Encounter Summary ---
Author Organization [facility] Address [address] [place] [address] Phone Care Team Providers Care Hammer Smith Name Role Phone Shivam Lombardo Primary Care Provider + Trini Lazaro MD Unavailable Jordi Olguin MD Unavailable [phone] Reason for Visit * Reason Onset Date Comments Canopy Call / Weekly CBC and EPO 09/28/2024 Encounter Details Date Type Department Care Team (Late st Contact Info) Description 09/28/2024 Telephone [facility] [address] [address] Jordi Olguin MD [address] [facility] [address] [address] Canopy Call / Weekly CBC and EPO Social History Tobacco Use Types Packs/Day Years [...] encounter Miscellaneous Notes * Telephone Encounter - Corrie Thornton RN - 09/28/2024 9:26 AM CST Pt is wanting to know if her weekly Saturday visits are to start this week, or next. Pt said this wasdiscussed at 09/24 appt with Gabino Patient advised to come in today for weekly CBC and possible EPO. SOL SUPERVISOR documented in this encounter Plan of Treatment Upcoming Encounters Date Type Department Care Team (Late st Contact Info) Description 10/05/2024 1:35 PM AEROSOL SUPERVISOR Lab [facility] [address] [address] Lab, [facility] 10/05/2024 1:45 PM AEROSOL SUPERVISOR Office Visit [facility] [address] [phone] Jordi Olguin MD [address] [place] [address] 10/12/2024 11:00 AM AEROSOL SUPERVISOR Lab [facility] [address] [address] Lab, [facility] 10/19/2024 11:00 AM AEROSOL SUPERVISOR Lab [facility] [address] [address] Lab, [facility] 10/26/2024 12:45 AM AEROSOL SUPERVISOR Lab [facility] [address] [address] Lab, [facility] 10/26/2024 1:00 PM AEROSOL SUPERVISOR Office Visit [facility] [address] [address] Jordi Olguin MD [address] [place] [phone] documented as of this encounter Visit Diagnoses Not on filedocumented in this encounter Care Teams Hammer Smith Relationship Specialty Start Date End Date Shivam Lombardo DO [address] [place] [address] PCP - General Family Medicine 11/15/23 Trini Lazaro MD [address] [place] [address] Consulting Physician Oncology 11/15/23 Jordi Olguin MD [address] [place] [phone] Consulting Physician Oncology 05/11/24 documented as of this encounter
--- OUTSIDE RECORDS SUMMARY | 2024-09-29 13:59 | XMS_ITS | Encounter Summary ---
Author Organization [facility] Address [address] [place] [address] Phone Care Team Providers Care Operations Label Clerk Name Role Phone Shivam Lombardo Lulu RICO Primary Care Provider + Trini Lazaro MD Unavailable Jordi Olguin MD Unavailable [phone] Reason for Visit * Episode Based Medications (Routine) - Authorized Specialty Diagnoses / Procedures Referred By Contac t Referred To Contact Diagnoses MDS (myelodysplastic syndrome), low grade (HCC) Procedures EPOGEN 1000 UNITS NON ESRD INJ Jordi Olguin MD [address] [address] Phone: tel: fax: [facility] [address] [address] Phone: tel: fax: Referral ID Status Reason Start Date Expiration Date V isits Requested Visits Authorized [id number] Authorized 06/22/2024 08/25/2027 1 1 Encounter Details Date Type Department Care Team (Late st Contact Info) Description 09/28/2024 11:00 AM GUIDANCE SERVICES COORDINATOR Lab [facility] [address] [address] Nurse, Мария [facility] MDS (myelodysplastic syndrome), low grade (HCC) (Primary Dx); Pancytopenia (HCC) Social History Tobacco Use Types Packs/Day Years [...] on file documented as of this encounter Progress Notes * Kayla Lopez RN - 09/28/2024 11:00 AM CST Labs drawn in clinic today, gauze and coban applied to site. HGB 6.4 and Hct 21.4 BP and HR taken. Patient tolerated Procrit injection well. Patient's performance status has not changed since arrival to clinic. Patient discharged ambulatory unaccompanied. ANCE SERVICES COORDINATOR documented in this encounter Plan of Treatment Upcoming Encounters Date Type Department Care Team (Late st Contact Info) Description 10/05/2024 1:35 PM GUIDANCE SERVICES COORDINATOR Lab [facility] [address] [address] Lab, [facility] 10/05/2024 1:45 PM GUIDANCE SERVICES COORDINATOR Office Visit [facility] [address] [phone] Jordi Olguin MD [address] [place] [place] [address] 10/12/2024 11:00 AM GUIDANCE SERVICES COORDINATOR Lab [facility] [address] [address] Lab, [facility] 10/19/2024 11:00 AM GUIDANCE SERVICES COORDINATOR Lab [facility] [address] [phone] Lab, [facility] 10/26/2024 12:45 AM GUIDANCE SERVICES COORDINATOR Lab [facility] [address] [address] Lab, [facility] 10/26/2024 1:00 PM GUIDANCE SERVICES COORDINATOR Office Visit [facility] [place] [address] [place] [address] Jordi Olguin MD [address] [place] [address] Scheduled Orders Name Type Priority Associated Diagnoses Orde r Schedule TYPE & SCREEN (CROSSMATCH CONVERTIBLE) Blood Bank Routine Pancytopenia (HCC) MDS (myelodysplastic syndrome), low grade (HCC) Expected: 09/28/2024, Expires: 10/26/2024 ONC BLOOD ADMIN COMMUNICATION - PRBC Blood Bank Routine Pancytopenia (HCC) MDS (myelodysplastic syndrome), low grade (HCC) Expected: 09/28/2024, Expires: 10/26/2024 documented as of this encounter Procedures Procedure Name Priority Date/Time Associated Diagnosis Comments COMPLETE BLOOD COUNT (CBC) WITH DIFF Routine 09/28/2024 11:02 AM GUIDANCE SERVICES COORDINATOR Pancytopenia (HCC) MDS (myelodysplastic syndrome), low grade (HCC) documented in this encounter Results * (ABNORMAL) COMPLETE BLOOD COUNT (CBC) WITH DIFF (09/28/2024 11:02 AM GUIDANCE SERVICES COORDINATOR) WBC 2.6(L) 4.0 - 10.0 10*3/uL [facility] HGB 6.4(LL) 11.2 - 15.7 g/dL [facility] Comment: Critical Result reported to Keerthi Briones on 09/28/2024 11:24 by ? Nathanael Hansen. Results were read back to caller. HCT 21.4(L) 34.1 - 44.9 % [facility] PLT 93(L) 163 - 369 10*3/uL [facility] MPV 11.0 9.4 - 12.4 fL [facility] RBC 2.16(L) 3.93 - 5.22 10*6/uL [facility] MCV 99(H) 79 - 95 fL [facility] MCH 29.6 25.6 - 32.2 pg [facility] MCHC 29.9(L) 32.2 - 36.5 g/dL [facility] RDW 14.7(H) 11.6 - 14.4 % [facility] Absolute Neutrophil Count 1,415 cells/uL [facility] Absolute Seg Count 1,415(L) 1,440 - 6,600 cells/uL [facility] Absolute Lymph Count 996 760 - 4,000 cells/uL [facility] Absolute Latimer Count 210 160 - 1,200 cells/uL [facility] Segmented Neutrophils 54 36 - 66 % [facility] Lymphocytes 38 19 - 40 % [facility] Monocytes 8 4 - 12 % [facility] WBC Estimate Low [facility] Platelet Estimate [facility] RBC Morphology Abnormal [facility] Macrocytosis 1+ [facility] Blood 09/28/2024 11:0 2 AM GUIDANCE SERVICES COORDINATOR Narrative [facility] - 09/28/2024 1:24 PM GUIDANCE SERVICES COORDINATOR Release to patient->Immediate us Renetta Urbina APRN, SEEING EYE DOG TRAINER HEMATOLOGY ORDERABLES Final Result [facility] [address] [place] [address], documented in this encounter Visit Diagnoses Diagnosis MDS (myelodysplastic syndrome), low grade (HCC)- Primary Low grade myelodysplastic syndrome lesions Pancytopenia (HCC) Other pancytopenia documented in this encounter Administered Medications Inactive Administered Medications - up to 3 most recent administrations Medication Order MAR Action Action Date Dose Rate Site epoetin jose (EPOGEN;PROCRIT) injection 40,000 Units 40,000 Units, Subcutaneous, ONCE, 1 dose, On Sat09/28/24 at 1200, Obtain blood pressure AND check H&H prior to administering Procrit. NOTE: For Medicare patients, please contact Physician or Business Office to verify guidelines for administration.Indication s:MDS (myelodysplastic syndrome), low grade (HCC) Given 09/28/2024 12:00 PM GUIDANCE SERVICES COORDINATOR 40,000 Units Right Abdomen documented in this encounter Care Teams Operations Label Clerk Relationship Specialty Start Date End Date Shivam Lombardo DO [address] [place] [address] PCP - General Family Medicine 11/15/23 Trini Lazaro MD [address] [place] [address] Consulting Physician Oncology 11/15/23 Jordi Olguin MD [address] [place] [phone] Consulting Physician Oncology 05/11/24 documented as of this encounter
--- OUTSIDE RECORDS SUMMARY | 2024-09-29 13:59 | XMS_ITS | Clinical Summary ---
Author Organization [facility] Address [address] [place] [address] Care Team Providers Care Valuation Manager Name Role Phone Grupo Shivam Lawson DO Primary Care Provider + Allergies No known active allergies Medications atorvastatin (LIPITOR) 80 mg tablet Take 1 Tablet by mouth daily. 4 Active citalopram (CeleXA) 10 mg tablet Take 1 Tablet by mouth daily. 4 Active fenofibrate nanocrystallized (TRICOR) 145 mg tablet Take 1 Tablet by mouth daily. 3 Active ferrous sulfate 325 mg (65 mg iron) tablet Take 325 mg by mouth. 4 Active furosemide (LASIX) 20 mg tablet Take 1 Tablet by mouth daily. 4 Active lisinopriL (PRINIVIL) 40 mg tablet Take 1 Tablet by mouth daily. 4 Active pantoprazole (PROTONIX) 40 mg Tablet, Delayed Release (E.C.) Take 1 Tablet by mouth daily. 4 Active potassium/magnesium (MAGNESIUM-POTASSIUM ORAL) Take by mouth. Active meloxicam (MOBIC) 15 mg tablet Take 15 mg by mouth daily. Active CYANOCOBALAMIN, VITAMIN B-12, ORAL Take by mouth. Active CALCIUM CITRATE-VITAMIN D3 ORAL Take by mouth. Active Active Problems No known active problems Encounters Date Type Department Care Team Description 09/23/2024 External Device Data [facility] ABSTRACTION Provider, Abstract 09/17/2024 External Device Data [facility] ABSTRACTION Provider, Abstract from Last 3 Months Family History Medical History Relation Name Comments Heart Disease Father Heart Disease Mother Relation Name Status Comments Father Mother Social History Tobacco Use Types Packs/Day Years Used Date Smoking Tobacco: Never Tobacco Cessation:Counseling Given: Not Answered Alcohol Use Standard Drinks/Week Comments Not Currently 0 (1 standard drink = 0.6 oz pur e alcohol) Comments Unknown Sex and Gender Information Value Date Recorded Sex Assigned at Not on file Legal Sex Female 9:02 AM CDT Gender Identity Not on file Sexual Orientation Not on file Last Filed Vital Signs Vital Sign Reading Time Taken Comments Blood Pressure 139/73 06/19/2024 9:41 AM CDT Pulse 87 06/19/2024 9:41 AM CDT Temperature 36.8 ??C (98.2 ??F) 06/19/2024 9:41 AM CD T Respiratory Rate 20 06/19/2024 9:41 AM CDT Oxygen Saturation 96% 06/19/2024 9:41 AM CDT Inhaled Oxygen Concentration - - Weight 69.4 kg (153 lb) 06/19/2024 9:41 AM CDT Height 149.9 cm (4' 11 ) 05/13/2024 1:22 PM CDT Body Mass Index 30.9 05/13/2024 1:22 PM CDT Plan of Treatment Health Maintenance Due Date Last Done Comments DIABETES ANNUAL FOOT EXAM 01/22/1963 DIABETES MICROALBUMIN ANNUAL SCREEN 01/22/1964 LDL CHOLESTEROL ANNUAL 01/22/1964 DTAP/TDAP/TD VACCINES (1 - Tdap) 1965 ZOSTER VACCINE (1 of 2) 01/22/1996 RSV VACCINE (60+ or ) (1 - 1-dose 75+ series) 2021 INFLUENZA VACCINE (#1) 2024 , 06/13/2022, 05/29/2021, Additional history exists COVID-19 Vaccine (3 - 2023-2 5 season) 2024 06/13/2022, 06/08/2021 DIABETES ANNUAL RETINAL EXAM 09/02/202403/2024, 09/02/2023, 08/28/2022, Additional history exists DIABETES HBA1C Q 6 MONTHS 09/20/20242023, 11/11/2023, 08/08/2023, Additional history exists PNEUMOCOCCAL VACCINE 65+ YEARS Completed 02/18/2018 , 02/08/2017 OSTEOPOROSIS SCREENING Completed 07/04/2022, [address] [place] [address] MEDICARE PART A AND B [employer] MEDICARE SUPP AESSI Care Teams Valuation Manager Relationship Specialty Start Date End Date Shivam Lombardo DO [address] [place] [phone] PCP - General Family Practice 05/13/24
--- OUTSIDE RECORDS SUMMARY | 2024-09-29 13:59 | XMS_ITS | Encounter Summary ---
Author Organization [facility] Address [address] [place] [address]. [place] [address] [place] [address] Care Team Providers Care Division Officer Weapons Department Name Role Phone Shivam Lombardo DO Primary Care Provider + Kimberly Vieira RN Unavailable [phone] Encounter Details Date Type Department Care Team (Latest Contact Info) Description 09/28/2024 12:50 PM VETERINARY ASSISTANT TECHNICIAN - 09/28/2024 5:05 PM VETERINARY ASSISTANT TECHNICIAN Hospital Encounter [facility] Clinical Decision Unit [address] [place], [place] [id number] Jordi Olguin MD [address] [id number] Discharge Disposition: Home or Self Care (Routine Discharge) Social History Tobacco Use Types Packs/Day Years Used Date Smoking Tobacco: Never Passive Smoke Exposure: Never Smokeless Tobacco: Never Alcohol Use Standard Drinks/Week Comments Never 0 (1 standard drink = 0.6 oz pur e alcohol) PHQ-2 Answer Date Recorded Patient Health Questionnaire-2 Score 0 11/11/2023 PRAPARE - Transportation Answer Date Re corded In the past 12 months, has l ack of transportation kept you from medical appointments or from getting medications? No 01/2024 In the past 12 months, has l ack of transportation kept you from meetings, work, or from getting things needed for daily living? No 03/31/2024 Comments No Sex and Gender Information Value Date Recorded Sex Assigned at Female 07/29/2024 1:13 PM VETERINARY ASSISTANT TECHNICIAN Legal Sex Female 8:19 PM CDT Gender Identity Female 09/04/2021 4:46 PM VETERINARY ASSISTANT TECHNICIAN Sexual Orientation Not on file Occupation Industry Job Start Date Job End Date Not on file Not on file Not on file Not on file documented as of this encounter Last Filed Vital Signs Vital Sign Reading Time Taken Comments Blood Pressure 123/75 09/28/2024 4:46 PM VETERINARY ASSISTANT TECHNICIAN Pulse 71 09/28/2024 4:46 PM VETERINARY ASSISTANT TECHNICIAN Temperature 36.4 ??C (97.6 ??F) 09/28/2024 4:46 PM CS T Respiratory Rate 17 09/28/2024 4:46 PM VETERINARY ASSISTANT TECHNICIAN Oxygen Saturation 99% 09/28/2024 4:46 PM VETERINARY ASSISTANT TECHNICIAN Inhaled Oxygen Concentration - - Weight - - Height - - Body Mass Index - - documented in this encounter Medications at Time of Discharge acetaminophen (TYLENOL) 325 MG tablet Take 2 tablets (650 mg total) by mouth every 6 (six) hours as needed. 01/26/2024 Blood Glucose Monitoring Suppl (ONE TOUCH ULTRA 2) w/Device KitIndications:Typ e 2 diabetes mellitus without complication, without long-term current use of insulin ([facility]) Check blood sugar once daily in AM when fasting 1 kit 05/30/2022 Cholecalciferol (D3) 50 MCG (1999 UT) Tab Take 1 tablet by mouth daily. citalopram (CELEXA) 10 MG tabletIndications: SYEDA (generalized anxiety disorder) TAKE 1 TABLET EVERY DAY 90 tablet 3 09/01/2024 ferrous sulfate, 65 mg elemental, (FEROSUL) 325 (65 FE) MG tabletIndications: Anemia, unspecified type TAKE 1 TABLET EVERY DAY WITH BREAKFAST 90 tablet 07/29/2024 furosemide (LASIX) 20 MG tabletIndications: Type 2 diabetes mellitus without complication, without long-term current use of insulin ([facility]) take 1 tablet every day 90 tablet 3 11/11/2023 Glucose Blood test stripIndications:T ype 2 diabetes mellitus without complication, without long-term current use of insulin ([facility]) Check blood sugar once daily in AM when fasting 100 strip 11 05/30/2022 Lancets (KipoTOUCH ULTRASOFT) lancetsIndications :Type 2 diabetes mellitus without complication, without long-term current use of insulin ([facility]) Check blood sugar once daily in AM when fasting 1 each 05/30/2022 lisinopril (PRINIVIL) 20 MG tabletIndications: Primary hypertension Take 1 tablet (20 mg total) by mouth daily. 90 tablet 3 05/20/2024 pantoprazole EC (PROTONIX) 40 MG tabletIndications: Gastroesophageal reflux disease, unspecified whether esophagitis present take 1 tablet every day 90 tablet 3 11/11/2023 polyethylene glycol (MIRALAX) 17 GM/SCOOP powderIndications: Constipation Take 17 g by mouth daily. Dissolve powder in 240 mL water 255 g 03/26/2024 triamcinolone (KENALOG) 0.1 % creamIndications:P soriasis Apply topically 2 (two) times daily. 45 g 05/21/2024 VENTOLIN HFA 108 (90 Base) MCG/ACT inhalerIndications :Mild intermittent asthma without complication ([facility]) Inhale 2 puffs into the lungs every 6 (six) hours as needed for Wheezing. 54 g 1 01/17/2024 documented as of this encounter Nursing Notes * Keerthi Christian RN - 09/28/2024 4:47 PM CST Blood transfusion complete at this time. All questions/concerns addressed, no s/s of transfusion reaction. VSS, RR even and unlabored, pt ambulatory with steady gait. All belongings sent home with pt. RINARY ASSISTANT TECHNICIAN documented in this encounter Plan of Treatment Not on file documented as of this encounter Goals Goal Patient Goal Type Associated Problems Recent Progress Patient-Stated? Author Establish Plan for Symptom Monitoring for anemia aeb the below: Lifestyle On track(2024 3:18 PM VETERINARY ASSISTANT TECHNICIAN) No Kimberly Vieira RN Note: .1) Patient will be knowledge in symptoms to report to their provider including: fatique, palpitations or fast heartbeat, chest pain, sob, light-headness, headache, and weakness 2) Patient will follow prescribed diet and or consume diet in high in iron-rich foods including: red meat, shellfish, poultry, eggs, beans, raisins, whole-grain breat, and leafy green veg(steam vegetable help keep their iron content) 3) patient will follow up with pcp and or specialists as directed 4) Patient will have all required/recommended labs done as recommended by their physicians 03/31/24 see note/status section moving forward for goal completion Establish Plan for Symptom Monitoring for cirrhosis aeb the below: Lifestyle On track(2024 3:18 PM VETERINARY ASSISTANT TECHNICIAN) No Kimberly Vieira RN Note: 1) Patient will take all medications as prescribed 2) Patient will follow up with physician/specialists as directed. 3) Patient will be knowledgeable in symptoms to report including: swelling in belly,ankles, or legs; poor appetite, N/V,muscle weakness or cramps, and or pain on the top right side of your belly 03/31/24 see note/status section moving forward for goal completion Establish Plan for Symptom Monitoring for MDS aeb the below: Lifestyle On track(2024 3:18 PM VETERINARY ASSISTANT TECHNICIAN) Kimberly Dupree RN Note: .1) patient will follow up with oncologist as directed 2) patient will be knowledgeable in s/e of chemo and when to contact physician 3) patient will take all medications as prescribed 4) patient will be knowledgeable in oxygen management when applicable 5)patient will stop smoking when applicable 07/08/24 see note/status section moving forward for progress towards goal completion documented as of this encounter Procedures Procedure Name Priority Date/Time Associated Diagnosis Comments TRANSFUSE RED BLOOD CELLS Routine 09/28/2024 2:45 PM VETERINARY ASSISTANT TECHNICIAN TYPE & SCREEN Routine 09/28/2024 1:15 PM VETERINARY ASSISTANT TECHNICIAN MDS (myelodysplastic syndrome), low grade (CMS/HCC HHS/HCC) documented in this encounter Results * TRANSFUSE RED BLOOD CELLS (09/28/2024 4:46 PM VETERINARY ASSISTANT TECHNICIAN) us Jordi Olguin MD NURSING TREATMENT ORDERABLES - BLOOD ADMIN Final Result * TRANSFUSE RED BLOOD CELLS, 1 Units (09/28/2024 4:46 PM VETERINARY ASSISTANT TECHNICIAN) Jordi Olguin MD NURSING TREATMENT ORDERABLES - BLOOD ADMIN Final Result * TYPE & SCREEN (09/28/2024 1:15 PM VETERINARY ASSISTANT TECHNICIAN) UNITS ORDERED 1 09/28/2024 2:12 PM VETERINARY ASSISTANT TECHNICIAN [facility] ABO/RH A POSITIVE 09/28/2024 2:12 PM VETERINARY ASSISTANT TECHNICIAN [facility] ANTIBODY SCREEN NEGATIVE 2:12 PM VETERINARY ASSISTANT TECHNICIAN [facility] SAMPLE EXPIRATION 10/01/2024,2359 09/28/2024 2:12 PM VETERINARY ASSISTANT TECHNICIAN [facility] BLOOD UNIT NUMBER [id number] 09/28/2024 2:12 PM VETERINARY ASSISTANT TECHNICIAN [facility] PRODUCT: PC LEUKOPOOR 09/28/2024 2:12 PM VETERINARY ASSISTANT TECHNICIAN [facility] UNIT DIVISION 00 09/28/2024 2:12 PM VETERINARY ASSISTANT TECHNICIAN [facility] BLOOD UNIT STATUS TRANSFUSED,FINAL 09/29/2024 6:16 AM [facility] ISSUE DATE/TIME [id number] 025 6:16 AM [facility] PRODUCT CODE [id number] 09/29/2024 6:16 AM VETERINARY ASSISTANT TECHNICIAN [facility] ABO/RH Unit A POS 09/29/2024 6:16 AM [facility] ABO/RH UNIT ISBT CODE [id number] 09/29/2024 6:16 AM VETERINARY ASSISTANT TECHNICIAN [facility] BLOOD UNIT EXPIRATION DATE [id number] 09/29/2024 6:16 AM [facility] TRANSFUSION STATUS OK TO TRANSFUSE 09/28/2024 2:12 PM VETERINARY ASSISTANT TECHNICIAN [facility] CROSSMATCH COMPATIBLE-EXM 09/28/2024 2:12 PM VETERINARY ASSISTANT TECHNICIAN [facility] 09/28/2024 1:15 PM VETERINARY ASSISTANT TECHNICIAN us Jordi Olguin MD BLOOD BANK TEST ORDERABLES F inal Result [facility] [address] [place] [address], [place] [phone] documented in this encounter Visit Diagnoses Diagnosis MDS (myelodysplastic syndrome), low grade (CMS/HCC HHS/HCC)- Primary Low grade myelodysplastic syndrome lesions documented in this encounter Administered Medications Inactive Administered Medications - up to 3 most recent administrations Medication Order MAR Action Action Date Dose Rate Site sodium chloride 0.9% infusion at 10 mL/hr, Intravenous, Continuous, Starting on Sat09/28/24 at 1315, Until Sat09/28/24 at 1905, Infuse at TKO rate New Bag 09/28/2024 3:06 PM VETERINARY ASSISTANT TECHNICIAN 100 mLs 10 mL/hr documented in this encounter Active and Recently Administered Medications Times are shown in VETERINARY ASSISTANT TECHNICIAN. Continuous Medication Order 09/26/2024 09/27/2024 09/28/2024 sodium chloride 0.9% infusion at 10 mL/hr, Intravenous, Continuous, Starting on Sat09/28/24 at 1315, Until Sat09/28/24 at 1905, Infuse at TKO rate 1506 (New Bag - Prov ider: Keerthi Christian RN) documented in this encounter Care Teams Division Officer Weapons Department Relationship Specialty Start Date End Date Shivam Lombardo DO [address] [place] [id number] PCP - General FAMILY PRACTICE 05/29/21 Kimberly Vieira, RN [phone] [facility] [address] [place] [address] Registered Nurse CARE MANAGEMENT 03/23/24 documented as of this encounter
--- OUTSIDE RECORDS SUMMARY | 2024-09-29 13:59 | XMS_ITS | Encounter Summary ---
Author Organization [facility] Address [address] [place] [address]. [place], [place] [id number] [place] [id number] Care Team Providers Care Drum Maker Name Role Phone Shivam Lombardo DO Primary Care Provider + Kimberly Vieira RN Unavailable [phone] Encounter Details Date Type Department Care Team (Latest Contact Info) Description 09/28/2024 Travel Social History Tobacco Use Types Packs/Day Years [...] Sex Assigned at Female 07/29/2024 1:13 PM FITNESS CENTER ATTENDANT Legal Sex Female 8:19 PM CDT Gender Identity Female 09/04/2021 4:46 PM FITNESS CENTER ATTENDANT Sexual Orientation Not on file Occupation Industry [...] the below: Lifestyle On track(2024 3:18 PM FITNESS CENTER ATTENDANT) Kimberly Dupree RN Note: .1) Patient will be knowledge [...] the below: Lifestyle On track(2024 3:18 PM FITNESS CENTER ATTENDANT) Kimberly Dupree RN Note: 1) Patient will take all [...] the below: Lifestyle On track(2024 3:18 PM FITNESS CENTER ATTENDANT) Kimberly Dupree RN Note: .1) patient will [...] goal completion documented as of this encounter Visit Diagnoses Not on filedocumented in this encounter Care Teams Drum Maker Relationship Specialty Start Date End Date Shivam Lombardo DO [address] [place] [id number] PCP - General FAMILY PRACTICE 05/29/21 Kimberly Vieira, RN [address] [facility] [address] [place] [address] Registered Nurse CARE MANAGEMENT 03/23/24 documented as of this encounter
--- OUTSIDE RECORDS SUMMARY | 2024-09-29 13:59 | XMS_ITS | Clinical Summary ---
Author Organization [facility] Address [address] [place] [address]. [place], [place] [id number] [place] [id number] Care Team Providers Care Assistant Sales Center Manager Name Role Phone Shivam Lombardo DO Primary Care Provider + Kimberly Vieira RN Unavailable [phone] Allergies No known active allergies Medications Glucose Blood test stripIndications :Type 2 diabetes mellitus without complication, without long-term current use of insulin ([facility]) Check blood sugar once daily in AM when fasting 100 strip 11 05/30/20 22 Active Blood Glucose Monitoring Suppl (ONE TOUCH ULTRA 2) w/Device KitIndications:T ype 2 diabetes mellitus without complication, without long-term current use of insulin ([facility]) Check blood sugar once daily in AM when fasting 1 kit 05/30/20 22 Active Lancets (ONETOUCH ULTRASOFT) lancetsIndicatio ns:Type 2 diabetes mellitus without complication, without long-term current use of insulin ([facility]) Check blood sugar once daily in AM when fasting 1 each 11 05/30/20 22 Active pantoprazole EC (PROTONIX) 40 MG tabletIndication s:Gastroesophage al reflux disease, unspecified whether esophagitis present take 1 tablet every day 90 tablet 3 11/11/19 24 Active furosemide (LASIX) 20 MG tabletIndication s:Type 2 diabetes mellitus without complication, without long-term current use of insulin ([facility]) take 1 tablet every day 90 tablet 3 11/11/19 24 Active VENTOLIN HFA 108 (90 Base) MCG/ACT inhalerIndicatio ns:Mild intermittent asthma without complication (HHS/HCC) Inhale 2 puffs into the lungs every 6 (six) hours as needed for Wheezing. 54 g 1 01/17/20 24 Active acetaminophen (TYLENOL) 325 MG tablet Take 2 tablets (650 mg total) by mouth every 6 (six) hours as needed. 01/26/20 24 Active polyethylene glycol (MIRALAX) 17 GM/SCOOP powderIndication s:Constipation Take 17 g by mouth daily. Dissolve powder in 240 mL water 255 g 03/26/20 24 Active Cholecalciferol (D3) 50 MCG (1999 UT) Tab Take 1 tablet by mouth daily. Active lisinopril (PRINIVIL) 20 MG tabletIndication s:Primary hypertension Take 1 tablet (20 mg total) by mouth daily. 90 tablet 3 05/20/20 24 025 Active triamcinolone (KENALOG) 0.1 % creamIndications :Psoriasis Apply topically 2 (two) times daily. 45 g 05/21/20 24 Active ferrous sulfate, 65 mg elemental, (FEROSUL) 325 (65 FE) MG tabletIndication s:Anemia, unspecified type TAKE 1 TABLET EVERY DAY WITH BREAKFAST 90 tablet 07/29/20 24 Active citalopram (CELEXA) 10 MG tabletIndication s:SYEDA (generalized anxiety disorder) TAKE 1 TABLET EVERY DAY 90 tablet 3 09/01/19 25 Active citalopram (CELEXA) 10 MG tabletIndication s:SYEDA (generalized anxiety disorder) take 1 tablet every day 90 tablet 3 11/11/19 24 025 Discontinued doxycycline hyclate (VIBRAMYCIN) 100 MG capsuleIndicatio ns:Upper respiratory tract infection, unspecified type Take 1 capsule (100 mg total) by mouth 2 (two) times daily for 10 days. 20 capsule 09/02/19 25 025 benzonatate (TESSALON) 100 MG capsuleIndicatio ns:Upper respiratory tract infection, unspecified type Take 1-2 capsules (100-200 mg total) by mouth 3 (three) times daily as needed for Cough. 40 capsule 09/04/19 25 025 Active Problems Problem Noted Date Diagnosed Date MDS (myelodysplastic syndrome), low grade (CMS/H CC HHS/HCC) 07/29/2024 Gastroesophageal reflux disease 05/18/2024 Cirrhosis of liver ([facility]) 05/18/2024 Care Management 03/31/2024 Iron deficiency anemia 03/27/2024 Overweight with body mass in dex (BMI) of 29 to 29.9 in adult 03/27/2024 Pancytopenia ([facility]) 01/06/2024 SYEDA (generalized anxiety disorder) 05/29/2021 Primary hypertension 05/29/2021 Mixed hyperlipidemia 05/29/2021 Type 2 diabetes mellitus wit h microalbuminuria, without long-term current use of insulin ([facility]) 05/29/2021 S/P total knee replacement, left 05/29/2021 Mild intermittent asthma without complication ([facility] /[facility]) 05/29/2021 Psoriasis 05/29/2021 Resolved Problems Problem Noted Date Diagnosed Date Resolved Date SDH (subdural hematoma) ([facility]) 01/25/2024 01/31/2024 Encounters Date Type Department Care Team Description 09/28/2024 12:50 PM HOIST MECHANIC - 09/28/2024 5:05 PM [facility] Hospital Encounter [facility] [place] [address] Jordi Olguin MD Discharge Disposition: Home or Self Care (Routine Discharge) 09/28/2024 Travel 09/25/2024 Patient Outreach [facility] & Internal [address] [address] Kimberly Vieira, RN Care Management (CCM) 09/22/2024 Telephone [facility] [address] [phone] Shivam Lombardo, DO Information 09/21/2024 4:05 PM HOIST MECHANIC - 09/21/2024 10:39 PM [facility] Emergency [facility] [place] [address] Rosalina Mcbride MD Jerome, Jason P, MD,PHD Abnormal Lab Results Discharge Disposition: Home or Self Care (Routine Discharge) 09/21/2024 Travel 09/16/2024 Patient Outreach [facility] Internal [address] [phone] Kimberly Vieira RN Care Management (CCM/) 09/10/[address] [address] Shivam Lombardo, DO Information 09/02/[address] [phone] Shivam Lombardo, DO Medication Request 08/24/2024 [facility] Scanned, [facility] 08/04/2024 Patient Outreach [address] [phone] Kimberly Vieira RN Care Management (CCM) 07/29/2024 1:00 PM HOIST MECHANIC Office Visit [address] [phone] Shivam Lombardo, DO Diabetes (Routine follow up. ); Constipation (The patient states she is more constipated than anything. ) 07/29/2024 Travel 07/27/2024 [facility] Scanned, [facility] 07/08/2024 Patient Outreach [facility] Internal [address] [address] Kimberly Vieira RN Care Management (CCM) 07/06/2024 10:44 AM HOIST MECHANIC - 07/06/2024 11:59 PM HOIST MECHANIC Hospital Encounter [facility] [place] [address] Jordi Olguin MD Discharge Disposition: Home or Self Care (Routine Discharge) 07/06/2024 Travel 06/29/2024 Scan [facility] Scanned, [facility] from Last 3 Months Immunizations Name Administration Dates Next Due Abrysvo Respiratory Syncytia l Virus (RSV) 0.5 mL, PF 06/23/2024 FLUAD (IIV, Trivalent, 0.5 M L Pre-filled Syringe) 06/23/2024 Fluzone High Dose - >Age 65 (Prefilled Syringe) 07/01/2023,06/13/2022,05/29/2021,2019,07/22/2019,06/21/2018,04/11/2016 Influenza Adult (Generic) 07/22/2019,06/21/2018, 04/11/2016 PFIZER COVID-19 (ORIGINAL FORMULATION, PURPLE CAP) mRNA, LNP-S, PF, 30 MCG/0.3 ML DOSE 06/08/2021 PFIZER COVID-19 BIVALENT (12 +) mRNA, LNP-S, PF, 30 MCG/0.3 ML DOSE 06/13/2022 Pneumococcal (Pneumovax 23) 02/18/2018 Pneumococcal (Prevnar 13) 02/08/2017 Family History Medical History Relation Comments COPD Brother 4 Cancer Brother 6 Diabetes Maternal Grandfather Diabetes Maternal Grandmother Dementia Mother Diabetes Mother Dementia Sister 1 Diabetes Sister 1 Cancer Sister 2 Relation Status Comments Brother 1 Alive blind Brother 2 Alive Brother 3 Alive Brother 4 Alive Brother 5 Alive Brother 6 Alive Brother 7 Alive Brother 8 Alive Father Maternal Grandfather Maternal Grandmother Mother Paternal Grandfather Paternal Grandmother Sister 1 Alive Sister 2 Alive Sister 3 Alive Son 1 Alive Son 2 Alive Social History Tobacco Use Types Packs/Day Years Used Date Smoking Tobacco: Never Passive Smoke Exposure: Never Smokeless Tobacco: Never Tobacco Cessation:Counseling Given: No Alcohol Use Standard Drinks/Week Comments Never 0 [...] Sex Assigned at Female 07/29/2024 1:13 PM HOIST MECHANIC Legal Sex Female 8:19 PM CDT Gender Identity Female 09/04/2021 4:46 PM HOIST MECHANIC Sexual Orientation Not on file Occupation Industry Job Start Date Job End Date Not on file Not on file Not on file Not on file Last Filed Vital Signs Vital Sign Reading Time Taken Comments Blood Pressure 123/75 09/28/2024 4:46 PM HOIST MECHANIC Pulse 71 09/28/2024 4:46 PM HOIST MECHANIC Temperature 36.4 ??C (97.6 ??F) 09/28/2024 4:46 PM CS T Respiratory Rate 17 09/28/2024 4:46 PM HOIST MECHANIC Oxygen Saturation 99% 09/28/2024 4:46 PM HOIST MECHANIC Inhaled Oxygen Concentration - - Weight 72.1 kg (159 lb) 09/21/2024 3:29 PM HOIST MECHANIC Height 157.5 cm (5' 2 ) 09/21/2024 3:29 PM HOIST MECHANIC Body Mass Index 29.08 09/21/2024 3:29 PM HOIST MECHANIC Plan of Treatment Health Maintenance Due Date Last Done Comments Kidney Health Evaluation 1945 Annual Medicare Wellness Visit 2011 Lipid Panel 08/08/2024 08/08/2023, 04/28, 06/08/2021 COVID-19 Vaccine ( season) 2024 06/23/2024, 07/01/2023, 06/13/2022, Additional history exists PHQ-2 (Physician [place]) 08/26/2024 11/11/2023 Diabetes: Retinopathy Eye Exam 09/02/2024 09/02/2023, 08/28/2022 DTaP, Tdap and Td Vaccines (1 - Tdap) 11/10/2024 Postponed from 1965 (No Insurance Coverage) Zoster Vaccines (1 of 2) 11/10/2024 Pos tponed from 01/22/1996 (Going to Outside Clinic) Hemoglobin A1C 01/27/2025 07/29/2024, 07/2 01/2024, 11/11/2023, Additional history exists Dexa Scan (General) 07/29/2025 07/04/2022 Postpone d from 07/04/2024 (Patient Refused) Pneumococcal Vaccine: 65+ Years Completed 02/18/2018, 02/08/2017 Hepatitis C Completed 02/04/2024, 02/01/2023 Colorectal Cancer Screening Colonoscopy (10 Years) Discontinued 02/12/2024, 10/29/2016 Influenza Adult Completed 06/23/2024, 110 01/2023, 06/13/2022, Additional history exists RSV Immunization or 60+ Years Completed 06/23/2024 Meningococcal B Vaccine Aged Out No l onger eligible based on patient's age to complete this topic Meningococcal Vaccine Aged Out No ema alma delia eligible based on patient's age to complete this topic RSV Immunizations Under 20 Months Aged Out No longer eligible based on patient's age to complete this topic Goals Goal Patient Goal Type Associated Problems Recent Progress Patient-Stated? Author Establish Plan for Symptom Monitoring for anemia aeb the below: Lifestyle On track(2024 3:18 PM HOIST MECHANIC) Kimberly Dupree RN Note: .1) Patient will [...] the below: Lifestyle On track(2024 3:18 PM HOIST MECHANIC) No Kimberly Vieira RN Note: 1) Patient [...] the below: Lifestyle On track(2024 3:18 PM HOIST MECHANIC) Kimberly Dupree RN Note: .1) patient will follow up with oncologist as directed 2) patient will be knowledgeable in s/e of chemo and when to contact physician 3) patient will take all medications as prescribed 4) patient will be knowledgeable in oxygen management when applicable 5)patient will stop smoking when applicable 07/08/24 see note/status section moving forward for progress towards goal completion Procedures Procedure Name Priority Date/Time Associated Diagnosis Comments TRANSFUSE RED BLOOD CELLS Routine 09/28/2024 2:45 PM HOIST MECHANIC TYPE & SCREEN Routine 09/28/2024 1:15 PM HOIST MECHANIC MDS (myelodysplastic syndrome), low grade (CMS/HCC HHS/HCC) TRANSFUSE RED BLOOD CELLS STAT 09/21/2024 8:12 PM HOIST MECHANIC TRANSFUSE RED BLOOD CELLS STAT 09/21/2024 5:51 PM HOIST MECHANIC ECG 12-LEAD Routine 09/21/2024 4:33 PM HOIST MECHANIC IRON SAT PANEL (IRON,IBC,%SAT) STAT 09/21/2024 4:15 PM HOIST MECHANIC TROPONIN, QUANT STAT 09/21/2024 4:15 PM HOIST MECHANIC COMPREHENSIVE METABOLIC PANEL STAT 09/21/2024 4:15 PM HOIST MECHANIC PROTHROMBIN TIME, VENOUS STAT 09/21/2024 4:15 PM HOIST MECHANIC CBC W/DIFF AUTOMATED STAT 09/21/2024 4:15 PM HOIST MECHANIC TYPE & SCREEN STAT 09/21/2024 4:14 PM HOIST MECHANIC XR CHEST PORTABLE STAT 09/21/2024 4:1 2 PM HOIST MECHANIC COLLECT.CAPILLARY (FNGR,HEEL,EAR) Routine 07/29/2024 1:18 PM HOIST MECHANIC Type 2 diabetes mellitus with stage 2 chronic kidney disease, without long-term current use of insulin (CMS/HCC HHS/HCC) HEMOGLOBIN, GLYCOSYLATED Routine 07/29/2024 Type 2 diabetes mellitus with stage 2 chronic kidney disease, without long-term current use of insulin (CMS/HCC HHS/HCC) US ABD LIMITED Routine 07/06/2024 11:28 AM HOIST MECHANIC MDS (myelodysplastic syndrome), low grade (CMS/HCC HHS/HCC) COLONOSCOPY GENERIC (SCAN ORDER) 02/12/2024 HEPATITIS PANEL,ACUTE Routine 02/04/2024 11:05 AM CDT Pancytopenia, acquired (CMS/HCC HHS/HCC) Elevated liver enzymes Other cirrhosis of liver (CMS/HCC HHS/HCC) DIABETIC RETINOPATHY EXAM (NEGATIVE)(SCAN ORDER) Routine 09/02/2023 LIPID PANEL Routine 08/08/2023 11:25 AM HOIST MECHANIC Type 2 diabetes mellitus with microalbuminuria, without long-term current use of insulin (CMS/HCC HHS/HCC) Mixed hyperlipidemia Primary hypertension BONE DENSITY GENERIC (SCAN ORDER) 07/04/2022 from Last 3 Months or Most Recently Relevant to Health Maintenance Results * TRANSFUSE RED BLOOD CELLS (09/28/2024 4:46 PM HOIST MECHANIC) Only the most recent of3 resultswithin the time period is included. us Jordi Olguin MD NURSING TREATMENT ORDERABLES - BLOOD ADMIN Final Result * TYPE & SCREEN (09/28/2024 1:15 PM HOIST MECHANIC) Only the most recent of2 resultswithin the time period is included. UNITS ORDERED 1 09/28/2024 2:[address] [facility] ABO/RH A POSITIVE 09/28/2024 2:[address] [facility] ANTIBODY SCREEN NEGATIVE 2:[address] [facility] SAMPLE EXPIRATION 10/01/2024,2358 09/28/2024 2:[address] [facility] BLOOD UNIT NUMBER [id number] 09/28/2024 2:[address] [facility] PRODUCT: PC LEUKOPOOR 09/28/2024 2:[address] [facility] UNIT DIVISION 00 09/28/2024 2:[address] [facility] BLOOD UNIT STATUS TRANSFUSED,FINAL 09/29/2024 6:[address] [facility] ISSUE DATE/TIME [id number] 025 6:[address] [facility] PRODUCT CODE [id number] 09/29/2024 6:[address] [facility] ABO/RH Unit A POS 09/29/2024 6:[address] [facility] ABO/RH UNIT ISBT CODE 6200 09/29/2024 6:[address] [facility] BLOOD UNIT EXPIRATION DATE [id number] 09/29/2024 6:16 AM [facility] TRANSFUSION STATUS OK TO TRANSFUSE 09/28/2024 2:[address] [facility] CROSSMATCH COMPATIBLE-EXM 09/28/2024 2:[address] [facility] 09/28/2024 1:15 PM HOIST MECHANIC us Jordi Olguin MD BLOOD BANK TEST ORDERABLES F inal Result [facility] [address] [place] [address], [place] [phone] * ECG 12 lead (09/21/2024 4:33 PM HOIST MECHANIC) 09/21/2024 4:33 PM HOIST MECHANIC Narrative [facility] - 09/21/2024 9:50 PM HOIST MECHANIC ?[facility] ? [address], [place] ? Test Date: ?2024-09-21 Pat Name: ? LEIA DILLON ? Department: ?? 41 ? Room: ? Gender: ? Female ? 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 : ?1945 ? Requested By: BONNIE ROSE Order Number: [id number] ? Reading MD: ?? Tony Khannahion ? Measurements Intervals ?[place] ? Rate: ? 80 ? P: ?89 WI: ? 165 ?QRS: ?-11 QRSD: ? 134 ?T: ?-2 QT: ? 419 ? QTc: ?486 ? 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: : 1945 Requested By: BONNIE ROSE Order Number: [id number] Shukri MD: Tony Tanner Measurements Intervals [place] Rate: 80 P: 89 WI: 165 QRS: -11 QRSD: 134 T: -2 QT: 419 QTc: 486 Interpretive Statements SINUS RHYTHM RIGHT BUNDLE BRANCH BLOCK [120+ ms QRS DURATION, UPRIGHT V1, 40+ ms S IN I/aVL/V4/V5/V6] MINIMAL VOLTAGE CRITERIA FOR LVH, CONSIDER NORMAL VARIANT [MEETS CRITERIAIN ONE OF: R(aVL), S(V1), R(V5), R(V5/V6)+S(V1)] No previous ECG available for comparison Other ischemic changes, not STEMI T MECHANIC Bonnie Rose FACILITY PLANNER ECG ORDERABLES Final Result Performing Organization Address [facility] Co de Phone Number [facility] * IRON SAT PANEL (IRON,IBC,%SAT) (09/21/2024 4:15 PM HOIST MECHANIC) IRON 144 50.0 - 170.0 MCG/DL 09/21/2024 4:[address] [facility] IRON BINDING CAPACITY 329 250 - 450 MCG/DL 09/21/2024 4:[address] [facility] IRON SATURATION 44 20 - 55 % 4:[address] [facility] 09/21/2024 4:15 PM HOIST MECHANIC Bonnie Rose FACILITY PLANNER LABORATORY Final Result Performing Organization Address [facility] de Phone Number [facility] [address] [place] [address], [place] [phone] * (ABNORMAL) PROTIME/INR, VENOUS (09/21/2024 4:15 PM HOIST MECHANIC) PROTIME 14.1(H) 10.2 - 12.9 SEC 09/21/2024 4:[address] [facility] INR 1.2 09/21/2024 4:[address] [facility] Comment: Recommended INR Therapeutic Goals: ??2.0-3.0 Routine Therapy ??2.5-3.5 Mechanical Prosthetic Valves (High Risk) 09/21/2024 4:15 PM HOIST MECHANIC Bonnie Rose NP LABORATORY Final Result Performing Organization Address [facility] Co de Phone Number [facility] [address] [place] [address], * (ABNORMAL) COMPREHENSIVE METABOLIC PANEL (09/21/2024 4:15 PM HOIST MECHANIC) [facility] GLUCOSE 101(H) 70 - 99 MG/DL 09/21/2024 4:[address] [facility] BUN 29(H) 7 - 18 MG/DL 09/21/2024 4:54 PM [facility] CREATININE S/P/B 0.91 0.55 - 1.02 MG/DL 09/21/2024 4:54 PM [facility] SODIUM S/P/B 140 136 - 145 MMOL/L 09/21/2024 4:54 PM [facility] POTASSIUM S/P/B 3.8 3.5 - 5.1 MMOL/L 09/21/2024 4:54 PM [facility] CHLORIDE S/P/B 104 97 - 115 MMOL/L 09/21/2024 4:54 PM [facility] CO2 30.5 21 - 32 MMOL/L 09/21/2024 4:54 PM [facility] CALCIUM S/P/B 9.6 8.5 - 10.1 MG/DL 09/21/2024 4:54 PM [facility] BILIRUBIN TOTAL S/P/B 0.7 0.2 - 1.2 MG/DL 09/21/2024 4:54 PM [facility] Comment: THIS ASSAY IS NOT RECOMMENDED FOR PATIENTS UNDERGOING TREATMENT WITH ELTROMBOPAG DUE TO THE POTENTIAL FOR FALSELY ELEVATED RESULTS. TOTAL PROTEIN S/P/B 5.8(L) 6.4 - 8.2 G/DL 09/21/2024 4:54 PM [facility] ALBUMIN S/P/B 2.9(L) 3.4 - 5.0 G/DL 09/21/2024 4:54 PM [facility] AST 39(H) 15 - 37 U/L 09/21/2024 4:54 PM [facility] ALT 23 14 - 55 U/L 09/21/2024 4:54 PM [facility] ALKALINE PHOSPHATASE S/P/B 79 50 - 136 U/L 09/21/2024 4:54 PM [facility] ANION GAP 5.5 2 - 10 MMOL/L 09/21/2024 4:54 PM [facility] BUN CREATININE RATIO 31.9(H) 6 - 26 09/21/2024 4:54 PM [facility] A/G RATIO 1.0 1.0 - 2.0 RATIO 09/21/2024 4:54 PM [facility] GFR ESTIMATE 65(L) >90 ML/MIN/1.7 3 M2 09/21/2024 4:54 PM [facility] Comment: NOTE: eGFR is not calculated for patients <18 years of age or gender unknown. This is an estimated GFR calculation using the new CKD EPI creatinine equation without race and so does not require a correction factor for race. This estimated GFR should not be used for calculating drug doses. 09/21/2024 4:15 PM HOIST MECHANIC us Bonnie Rose NP LABORATORY Final Result [facility] [address] [place] [address], * (ABNORMAL) CBC W/DIFF AUTOMATED (09/21/2024 4:15 PM HOIST MECHANIC) WBC 2.96(L) 4.5 - 11.0 x10'3/uL 09/21/2024 4:34 PM [facility] RBC 1.95(L) 4.20 - 5.40 x10'6/uL 09/21/2024 4:34 PM [facility] HGB 6.3(LL) 12.0 - 16.0 G/DL 09/21/2024 4:34 PM [facility] Comment: This result has been called to GIA MELO by [id number] on 09/21/2024 16:34:00, and has been read back. HCT 20.3(L) 38.0 - 48.0 % 09/21/2024 4:34 PM [facility] MCV 104.1(H) 81.0 - 99.0 FL 09/21/2024 4:34 PM [facility] MCH 32.3(H) 27.0 - 31.0 PG 09/21/2024 4:34 PM [facility] MCHC 31.0(L) 32.0 - 36.0 G/DL 09/21/2024 4:34 PM [facility] RDW 14.3 11.5 - 14.5 % 09/21/2024 4:34 PM [facility] PLT 113(L) 130 - 400 x10'3/uL 09/21/2024 4:34 PM [facility] MPV 10.9 9.3 - 12.2 FL 09/21/2024 4:34 PM [facility] DIFFERENTIAL TYPE AUTOMATED DIFFERENTIAL 09/21/2024 4:34 PM [facility] NEUTROPHILS % 61.2 % 09/21/2024 4:34 PM [facility] LYMPHOCYTES % 26.0 % 09/21/2024 4:34 PM [facility] MONOCYTES % 9.8 % 09/21/2024 4:34 PM [facility] EOSINOPHILS 2.7 % 09/21/2024 4:[address] [facility] BASOPHILS 0.3 % 09/21/2024 4:[address] [facility] IMMATURE GRANS % 0.0 % 09/21/19 4:[address] [facility] ABS. NEUTROPHILS 1.81 1.80 - 7.70 x10'3/uL 09/21/2024 4:[address] [facility] ABS. LYMPHOCYTES 0.77(L) 1.00 - 4.80 x10'3/uL 09/21/2024 4:[address] [facility] ABS. MONOCYTES 0.29 0.24 - 0.86 x10'3/uL 09/21/2024 4:[address] [facility] ABS. EOSINOPHILS 0.08 0.04 - 0.36 x10'3/uL 09/21/2024 4:[address] [facility] ABS. BASOPHILS 0.01 0.01 - 0.08 x10'3/uL 09/21/2024 4:[address] [facility] ABS. IMMATURE GRANULOCYTES 0.00 0.00 - 0.49 x10'3/uL 09/21/2024 4:[address] [facility] 09/21/2024 4:15 PM HOIST MECHANIC us Bonnie Rose NP LABORATORY Final Result [facility] [address] [place] [address], [place] [phone] * TROPONIN, QUANT (09/21/2024 4:15 PM HOIST MECHANIC) TROPONIN I HIGH SENSITIVITY 8 <54 ng/L 09/21/2024 4:[address] [facility] Comment: HIGH DOSES OF BIOTIN, TROPONIN-SPECIFIC AUTOANTIBODIES, AND ANTIBODY THERAPY CONTAINING HAMA MAY INTERFERE WITH THIS TEST RESULT. CORRELATION TO CLINICAL HISTORY AND PRESENTATION RECOMMENDED. 09/21/2024 4:15 PM HOIST MECHANIC us Bonnie Rose FACILITY PLANNER LABORATORY Final Result [facility] [address] [place] [address], * XR CHEST PORTABLE (09/21/2024 4:12 PM HOIST MECHANIC) Anatomical Region Laterality Modality Chest Radiographic Nae ging 09/21/2024 4:14 PM HOIST MECHANIC Impressions 09/21/2024 4:15 PM HOIST MECHANIC =====IMPRESSION:===== No radiographic evidence of active chest disease. Ordered By: BONNIE ROSE Interpreted By: Benji Izquierdo MD, 09/21/2024 4:14 PM Narrative 09/21/2024 4:15 PM HOIST MECHANIC [address] [address] Examination: Chest x-ray 1 view Exam date/time: 09/21/2024 3:46 PM Reason For Exam: ??Weakness. Low hemoglobin. ?? Comparison: 06/19/2022 PA chest Technique: Upright AP view of the chest demonstrated. Findings: ??Cardiac silhouette and pulmonary vasculature are within normal limits. Lungs appear clear. No evidence of pleural effusion. External metallic type density related to a bra. Overall, no radiographic evidence of active chest disease. Procedure Note Benji Izquierdo MD - 09/21/2024 [facility] [address] [place], [place] [address] Examination: Chest x-ray 1 view Exam date/time: 09/21/2024 3:46 PM Reason For Exam: Weakness. Low hemoglobin. Comparison: 06/19/2022 PA chest Technique: Upright AP view of the chest demonstrated. Findings: Cardiac silhouette and pulmonary vasculature are within normallimits. Lungs appear clear. No evidence of pleural effusion. Externalmetallic type density related to a bra. Overall, no radiographic evidenceof active chest disease. =====IMPRESSION:===== No radiographic evidence of active chest disease. Ordered By: BONNEI ROSE Interpreted By: Benji Izquierdo MD, 09/21/2024 4:14 PM us Bonnie Rose [facility] Final Result * HEMOGLOBIN, GLYCOSYLATED (07/29/2024) HGB A1C 5.2 % [facility] 07/29/2024 us Shivam Lombardo DO LABORATORY Final Re sult Performing Organization Address City/[facility] Co de Phone Number [facility] [address] [place] [address], [place] * US ABD LIMITED (07/06/2024 11:28 AM HOIST MECHANIC) Anatomical Region Laterality Modality Abdomen Ultrasound 07/08/2024 4:04 PM HOIST MECHANIC Impressions 07/08/2024 4:10 PM HOIST MECHANIC IMPRESSION: 1. Mild splenomegaly. 2. Liver length is similar to previous study. Ordered By: JORDI OLGUIN Interpreted By: Nick Acuna, 07/08/2024 4:04 PM Narrative 07/08/2024 4:10 PM HOIST MECHANIC [address] [address] IMAGING STUDIES: ??US ABD LIMITED ?DATE: ??07/06/2024 10:52 AM HISTORY: ??MDS ?79-year-old female. Myelodysplastic syndrome. Liver cirrhosis. COMPARISON: ??Ultrasound limited abdomen 01/02/2024 DISCUSSION: Limited imaging of the liver for determination of the liver length. Liver length of 18.1 cm (17.6 cm on 01/02/2024). Color doppler imaging and pulse Doppler imaging of the portal vein. Appropriate flow direction in the portal vein. Color Doppler imaging of the hepatic veins is within normal limits. Spleen is 14.1 x 5.2 x 6.1 cm (13.6 x 6.9 x 6.6 cm on 01/02/2024) (upper limits normal for splenic length on ultrasound is 12 cm). Normal color Doppler signal within the spleen. No visualized abdominal free fluid. On limited views of the right kidney, thin renal cortex with no appreciable hydronephrosis. Procedure Note Nick Acuna MD - 07/08/[address] [address] IMAGING STUDIES: US ABD LIMITEDDATE: 07/06/2024 10:52 AM HISTORY: MDS 79-year-old female. Myelodysplastic syndrome. Livercirrhosis. COMPARISON: Ultrasound limited abdomen 01/02/2024 DISCUSSION: Limited imaging of the liver for determination of the liver length. Liverlength of 18.1 cm (17.6 cm on 01/02/2024). Color doppler imaging and pulseDoppler imaging of the portal vein. Appropriate flow direction in theportal vein. Color Doppler imaging of the hepatic veins is within normallimits. Spleen is 14.1 x 5.2 x 6.1 cm (13.6 x 6.9 x 6.6 cm on 01/02/2024) (upperlimits normal for splenic length on ultrasound is 12 cm). Normal colorDoppler signal within the spleen. No visualized abdominal free fluid. On limited views of the right kidney, thin renal cortex with noappreciable hydronephrosis. IMPRESSION: 1. Mild splenomegaly. 2. Liver length is similar to previous study. Ordered By: JORDI OLGUIN Interpreted By: Nick Acuna, 07/08/2024 4:04 PM us Jordi Olguin MD ULTRASOUND Final Result * COLONOSCOPY GENERIC (SCAN ORDER) (02/12/2024) 02/12/2024 [facility] Scanned SCANNING Final Resu lt * HEPATITIS PANEL,ACUTE (02/04/2024 11:05 AM CDT) HEPATITIS B SURFACE AG NON-REACT SANTIAGO NON-REACT SANTIAGO 02/04/2024 7:22 PM CDT [facility] Comment:HBsAg NOT DETECTED. HEP B CORE IGM NON-REACT SANTIAGO NON-REACT SANTIAGO 02/04/2024 7:22 PM CDT [facility] Comment: IgM ANTI HBc NOT DETECTED. DOES NOT EXCLUDE THE POSSIBILITY OF EXPOSURE TO OR INFECTION WITH HBV. NO RETEST REQUIRED. HIGH DOSES OF BIOTIN MAY INTERFERE WITH THIS TEST RESULT. CORRELATION TO CLINICAL HISTORY AND PRESENTATION RECOMMENDED. HAV IGM NON-REACT SANTIAGO NON-REACT SANTIAGO 02/04/2024 7:22 PM CDT [facility] Comment: IgM ANTI HAV NOT DETECTED. DOES NOT EXCLUDE THE POSSIBILITY OF EXPOSURE TO OR INFECTION WITH HAV. LEVELS OF IgM ANTI HAV MAY BE BELOW THE CUTOFF IN EARLY INFECTION. HEPATITIS C AB NON-REACT SANTIAGO NON-REACT SANTIAGO 02/04/2024 7:22 PM CDT [facility] Comment: ANTIBODIES TO HCV NOT DETECTED. DOES NOT EXCLUDE THE POSSIBILITY OF EXPOSURE TO HCV. 02/04/2024 11:0 5 AM CDT Shivam Lombardo DO LABORATORY Final Re sult Performing Organization Address [facility] Co de Phone Number [facility] [address] [place] [address], [place] [phone] * DIABETIC RETINOPATHY EXAM (NEGATIVE) (09/02/2023) [facility] Scanned SCANNING Final Resu lt Performing Organization Address [facility] de Phone Number [facility] ONBASE * (ABNORMAL) LIPID PANEL (08/08/2023 11:25 AM HOIST MECHANIC) CHOLESTEROL 123 100 - 199 mg/dL [facility] TRIGLYCERIDES 123 0 - 149 mg/dL [facility] HDL 32(L) >39 mg/dL [facility] VLDL CALCULATION 22 5 - 40 mg/dL [facility] LDL (CALCULATED) 69 0 - 99 mg/dL [facility] 1 08/08/2023 11:2 5 AM HOIST MECHANIC 08/08/2023 Narrative [facility] - 08/09/2023 9:11 AM HOIST MECHANIC Performed at: ??01 - [facility] [address] ??[id number] Violin Restorer: Luciano Lawrence PhD, Phone: ??[phone] Shivam Lombardo DO LABORATORY Final Re sult Performing Organization Address [facility] de Phone Number [facility] [address] [place] [address] [facility] 1 * BONE DENSITY GENERIC (07/04/2022) Anatomical Region Laterality Modality Other 07/04/2022 [facility] Scanned SCANNING Final Resu lt from Last 3 Months or Most Recently Relevant to Health Maintenance Insurance MEDICARE [employer] Care Teams Assistant Sales Center Manager Relationship Specialty Start Date End Date Shivam Lombardo DO [address] [place] [address] PCP - General FAMILY PRACTICE 05/29/21 Kimberly Vieira, RN [address] [place] [address] Registered Nurse CARE MANAGEMENT 03/23/24
--- OUTSIDE RECORDS SUMMARY | 2024-09-29 13:59 | XMS_ITS | CONTINUITY OF CARE DOCUMENT ---
Author Name sami gallardo Address Unknown Organization [facility] Address [address] [address] [place] [address] Phone [phone] Care Team Providers Care Methods Analyst Data Processing Name Role Phone Dawood PEREZ, Pee Unavailable [phone] DEON PEREZ, KODI Unavailable REESE NERI, SUDHA Bolden Unavailable INSURANCE PROVIDERS Payer name Policy type / Coverage type [place] [employer] party ID [id number] PAY [id number]
--- OUTSIDE RECORDS SUMMARY | 2024-09-29 13:59 | XMS_ITS | Encounter Summary ---
Author Organization [employer] Care Team Providers Care Blood Bank Calendar Control Clerk Name Role Phone Shivam Lombardo Primary Care Provider + Trini Lazaro MD Unavailable Jordi Olguin MD Unavailable [phone] Encounter Details Date Type Department Care Team [...] as of this encounter Plan of Treatment Upcoming Encounters Date Type Department Care Team (Late st Contact Info) Description 10/05/2024 1:35 PM PERSONAL COMPUTER NETWORK ENGINEER Lab [facility] [address] [phone] Lab, [facility] 10/05/2024 1:45 PM PERSONAL COMPUTER NETWORK ENGINEER Office Visit [facility] [address] [phone] Jordi Olguin MD [address] [place] [address] DR BARKER [address] [place] [address] 10/12/2024 11:00 AM PERSONAL COMPUTER NETWORK ENGINEER Lab [facility] [address] [phone] Lab, [facility] 10/19/2024 11:00 AM PERSONAL COMPUTER NETWORK ENGINEER Lab [facility] [address] [address] Lab, [facility] 10/26/2024 12:45 AM PERSONAL COMPUTER NETWORK ENGINEER Lab [facility] [address] [address] Lab, [facility] 10/26/2024 1:00 PM PERSONAL COMPUTER NETWORK ENGINEER Office Visit [facility] [address] [phone] Jordi Olguin MD [address] [place] [phone] documented as of this encounter Visit Diagnoses Not on filedocumented in this encounter Care Teams Blood Bank Calendar Control Clerk Relationship Specialty Start Date End Date Shivam Lombardo DO [address] [place] [id number] PCP - General Family Medicine 11/15/23 Trini Lazaro MD [address] [place] [address] Consulting Physician Oncology 11/15/23 Jordi Olguin MD [address] [place] [phone] Consulting Physician Oncology 05/11/24 documented as of this encounter
--- OUTSIDE RECORDS SUMMARY | 2024-09-29 13:59 | XMS_ITS | Referral Summary ---
Author Organization [facility] Dsg[employer] Address [address] [place] [address] Care Team Providers Care Flap Presser Name Role Phone Khang Greer MD Primary Care Provider Source Comments [facility],non-[facility] health Affiliates and Associated Physician Practices is amultiple site organization consisting of ambulatory clinics and hospital sitesin [place], [place], [place] and [place]. This disclosure is being madepursuant to the Care Everywhere program and may not contain all information available regarding this patient. Last updated 18.[facility] Allergies No known active allergies Medications * Be aware that medications may not be up to date on this document. Alwaysverify current medications with the patient. Medication Sig Dispensed Refills Start Date End Date Status Ventolin HFA 108 (90 Base) MCG/ACT inhaler Inhale 2 (two) puffs by mouth every 6 hours as needed for Wheezing 01/17/2024 Active lisinopril (Prinivil; Zestril) 40 MG tablet Take 1 (one) tablet by mouth once daily 11/11/2023 Active pantoprazole EC (Protonix) 40 MG tablet Take 1 (one) tablet by mouth once daily 11/11/2023 Active atorvastatin (Lipitor) 80 MG tablet Take 1 (one) tablet by mouth once daily 11/27/2023 Active fenofibrate (Tricor) 145 MG tablet Take 1 (one) tablet by mouth once daily 04/05/2023 Active citalopram (CeleXA) 10 MG tablet Take 1 (one) tablet by mouth once daily 11/11/2023 Active acetaminophen (Tylenol) 325 MG tabletIndications: Fall, initial encounter,SDH (subdural hematoma) (HCC) Take 2 (two) tablets by mouth every 6 hours as needed for Fever or Pain Maximum allowable Acetaminophen amount = 4 Grams (4000 mg) / 24 hours. 01/26/2024 Active senna (Senokot) 8.6 MG tablet Take 1 (one) tablet by mouth 2 times daily 01/26/2024 Active oxyCODONE, immediate release, (Roxicodone) 5 MG tabletIndications: Fall, initial encounter,SDH (subdural hematoma) (HCC) Take 1 (one) tablet by mouth every 6 hours as needed for Pain 12 tablet 01/26/2024 Active Active Problems Problem Noted Date Diagnosed Date SDH (subdural hematoma) 01/25/2024 Fall, initial encounter 01/25/2024 Overweight 06/09/2015 Malignant neoplasm of endometrium 02/27/2011 Social History Tobacco Use Types Packs/Day Years Used Date Smoking Tobacco: Never Smokeless Tobacco: Never Alcohol Use Standard Drinks/Week Comments No 0 (1 standard drink = 0.6 oz pur e alcohol) AUDIT-C Answer Date Recorded Q1: How often do you have a drink containing alcohol? Never 01/25/2024 Q2: How many drinks containi ng alcohol do you have on a typical day when you are drinking? Patient does not drink Q3: How often do you have si x or more drinks on one occasion? Never 01/25/2024 Sex and Gender Information Value Date Recorded Sex Assigned at Not on file Gender Identity Not on file Sexual Orientation Not on file Last Filed Vital Signs Vital Sign Reading Time Taken Comments Blood Pressure 134/50 01/26/2024 11:05 AM CDT Pulse 65 01/26/2024 11:05 AM CDT Temperature 36.5 ??C (97.7 ??F) 01/26/2024 11:05 AM C DT Respiratory Rate 16 01/26/2024 11:05 AM CDT Oxygen Saturation 98% 01/26/2024 11:05 AM CDT Inhaled Oxygen Concentration - - Weight 97.5 kg (215 lb) 01/25/2024 5:01 PM CDT Height 156 cm (5' 1.42 ) 01/25/2024 5:01 PM CDT Body Mass Index 40.07 01/25/2024 5:01 PM CDT Plan of Treatment Upcoming Encounters Date Type Department Care Team (Late st Contact Info) Description 11/23/2024 2:30 PM CDT Office Visit [facility] [address] [facility] [place] [phone] Chad Reza MD [facility] [place] [address] Advance Directives * Full Code (Latest Code Status on File) Date Activated Date Inactivated Comments 01/25/2024 2:29 AM 01/26/2024 4:42 PM Care Teams Flap Presser Relationship Specialty Start Date End Date Khang Greer MD [address] [place] [address] PCP - General 10/31/16
--- OUTSIDE RECORDS SUMMARY | 2024-09-29 13:59 | XMS_ITS | Patient Health Summary ---
Author Organization [facility] [employer] Address [address] [place] [address] Care Team Providers Care Sheriff Sergeant Name Role Phone Khang Greer MD Primary Care Provider Note from [facility],non-owned Affiliates and Associated Physician Practices is amultiple site organization consisting of ambulatory clinics and hospital sitesin [place], [place], [place] and [place]. This disclosure is being madepursuant to the Care Everywhere program and may not contain all information available regarding this patient. Last updated 18.[facility] Allergies No known active allergies Medications * Be aware that medications may not be up to date on this document. Alwaysverify current medications with the patient. * Ventolin HFA 108 (90 Base) MCG/ACT inhaler(Started 01/17/2024) Inhale 2 (two) puffs by mouth every 6 hours as needed for Wheezing * lisinopril (Prinivil; Zestril) 40 MG tablet(Started 11/11/2023) Take 1 (one) tablet by mouth once daily * pantoprazole EC (Protonix) 40 MG tablet(Started 11/11/2023) Take 1 (one) tablet by mouth once daily * atorvastatin (Lipitor) 80 MG tablet(Started 11/27/2023) Take 1 (one) tablet by mouth once daily * fenofibrate (Tricor) 145 MG tablet(Started 04/05/2023) Take 1 (one) tablet by mouth once daily * citalopram (CeleXA) 10 MG tablet(Started 11/11/2023) Take 1 (one) tablet by mouth once daily * acetaminophen (Tylenol) 325 MG tablet(Started 01/26/2024) Take 2 (two) tablets by mouth every 6 hours as needed for Fever or Pain Maximum allowable Acetaminophen amount = 4 Grams (4000 mg) / 24 hours. * senna (Senokot) 8.6 MG tablet(Started 01/26/2024) Take 1 (one) tablet by mouth 2 times daily * oxyCODONE, immediate release, (Roxicodone) 5 MG tablet(Started 01/26/2024) Take 1 (one) tablet by mouth every 6 hours as needed for Pain Active Problems Problem Noted Date Diagnosed Date [...] Mass Index 40.07 01/25/2024 5:01 PM CDT Procedures * CBC W/O DIFFERENTIAL(Performed 01/26/2024) Performed for Fall, initial encounter, SDH (subdural hematoma) (HCC) * BASIC METABOLIC PANEL (CALCIUM TOTAL)(Performed 01/26/2024) Performed for Fall, initial encounter, SDH (subdural hematoma) (HCC) * EKG 12-LEAD(Performed 01/25/2024) Performed for SDH (subdural hematoma) (HCC) * CT HEAD WO CONTRAST(Performed 01/25/2024) Performed for Fall, initial encounter * CBC W/O DIFFERENTIAL(Performed 01/25/2024) Performed for Fall, initial encounter, SDH (subdural hematoma) (HCC) * BASIC METABOLIC PANEL (CALCIUM TOTAL)(Performed 01/25/2024) Performed for Fall, initial encounter, SDH (subdural hematoma) (HCC) * CT FACIAL BONES WO CONTRAST(Performed 01/24/2024) Performed for Fall, initial encounter * CT HEAD WO CONTRAST(Performed 01/24/2024) Performed for Fall, initial encounter * BLOOD TYPE VERIFICATION(Performed 01/24/2024) * XR CHEST 1VW PORTABLE(Performed 01/24/2024) Performed for Fall, initial encounter * XR PELVIS 1 OR 2VW(Performed 01/24/2024) Performed for Fall, initial encounter * TYPE + SCREEN PANEL(Performed 01/24/2024) Performed for Fall, initial encounter * ALCOHOL ETHYL BLOOD(Performed 01/24/2024) Performed for Fall, initial encounter * CBC W AUTO DIFFERENTIAL(Performed 01/24/2024) Performed for Fall, initial encounter * BASIC METABOLIC PANEL (CALCIUM TOTAL)(Performed 01/24/2024) Performed for Fall, initial encounter * MAGNESIUM BLOOD(Performed 01/24/2024) Performed for Fall, initial encounter * PHOSPHORUS BLOOD(Performed 01/24/2024) Performed for Fall, initial encounter * PT-INR SLH(Performed 01/24/2024) Performed for Fall, initial encounter * TEG 6S PLATELET MAPPING(Performed 01/24/2024) Performed for Fall, initial encounter * TEG 6 GLOBAL HEMOSTASIS W/ LYSIS(Performed 01/24/2024) Performed for Fall, initial encounter * PTT SLH(Performed 01/24/2024) Performed for Fall, initial encounter * PATHOLOGY/GENETICS HISTORICAL-ONBASE(Performed 02/16/2014) * PATHOLOGY/GENETICS HISTORICAL-ONBASE(Performed 02/16/2014) * PAP IG RFLX HPV ASCU(Performed 07/21/2013) * PAP IG RFLX HPV ASCU(Performed 12/09/2012) * PAP IG RFLX HPV ASCU(Performed 04/22/2012) * PAP IG RFLX HPV ASCU(Performed 10/19/2011) * LAB HISTORICAL RESULTS-ONBASE(Performed 03/09/2011) * LAB HISTORICAL RESULTS-ONBASE(Performed 03/09/2011) * PATHOLOGY/GENETICS HISTORICAL-ONBASE(Performed 03/08/2011) * LAB HISTORICAL RESULTS-ONBASE(Performed 03/05/2011) Results * (ABNORMAL) CBC W/O DIFFERENTIAL (01/26/2024 4:44 AM CDT) Only the most recent of2 resultswithin the time period is included. WBC 4.1 4.0 - 10.7 x10E9/L 01/26/2024 5:52 AM [facility] RBC Count 2.82(L) 3.90 - 5.20 x10E12/L 01/26/2024 5:52 AM [facility] Hemoglobin 8.9(L) 11.9 - 15.8 g/dL 01/26/2024 5:52 AM [facility] Hematocrit 27.2(L) 34.8 - 46.1 % 01/26/2024 5:52 AM [facility] MCV 96.5 80.0 - 98.0 fL 01/26/2024 5:52 AM [facility] MCH 31.6 26.7 - 33.6 pg 01/26/2024 5:52 AM [facility] MCHC 32.7 31.7 - 36.3 g/dL 01/26/2024 5:52 AM [facility] RDW-CV 16.3(H) 11.3 - 14.8 % 01/26/2024 5:52 AM [facility] Platelet Count 96(L) 150 - 420 x10E9/L 01/26/2024 5:52 AM [facility] MPV 11.8(H) 7.8 - 11.4 fL 01/26/2024 5:52 AM [facility] Blood BLOOD SPECIMEN / Unknown Lab Venipuncture / Unknown 01/26/2024 4:44 AM CDT 01/26/2024 5:11 AM CDT Juan Miguel Gonzalez MD LAB - HEMATOLOGY ORD ERABLES [facility] [address] [place] [address], [facility] [phone] * (ABNORMAL) BASIC METABOLIC PANEL (CALCIUM TOTAL) (01/26/2024 4:44 AM T) Only the most recent of3 resultswithin the time period is included. BUN 21 7 - 26 mg/dL 01/26/2024 5:32 AM [facility] Creatinine 0.88 0.56 - 0.96 mg/dL 01/26/2024 5:32 AM [facility] Sodium 140 136 - 145 mmol/L 01/26/2024 5:32 AM [facility] Potassium 4.1 3.5 - 4.5 mmol/L 01/26/2024 5:32 AM [facility] Chloride 107 98 - 107 mmol/L 01/26/2024 5:32 AM [facility] CO2 27 22 - 29 mmol/L 01/26/2024 5:32 AM [facility] Glucose 107 70 - 115 mg/dL 01/26/2024 5:32 AM [facility] Calcium 10.0 8.4 - 10.2 mg/dL 01/26/2024 5:32 AM [facility] Anion Gap 6 6 - 16 01/26/2024 5:32 AM [facility] BUN/Creatinine Ratio 24(H) 7 - 23 01/26/2024 5:32 AM [facility] Osmolality Calculated 293 275 - 295 mOsm/kg 01/26/2024 5:32 AM [facility] eGFR by CKD-EPI 67(L) >=90 mL/min/1.7 3 m2 01/26/2024 5:32 AM CDT [facility] Blood BLOOD SPECIMEN / Unknown Lab Venipuncture / Unknown 01/26/2024 4:44 AM CDT 01/26/2024 5:10 AM CDT Juan Miguel Gonzalez MD LAB - CHEMISTRY NAEEM PIZARRO Performing Organization Address [facility] Co de Phone Number [facility] [address] [place] [address], [facility] [phone] * EKG 12-LEAD (01/25/2024 4:33 PM CDT) Pathologist [facility] Ventricular Rate 74 BPM SL MUSE Atrial Rate 74 BPM [facility] MUSE P-R Interval 160 ms [facility] MUSE QRS Duration ms 122 ms [facility] MUSE Q-T Interval ms 390 ms [facility] MUSE QTC Calculation (Bezet) 432 ms [facility] MUSE Calculated R [place] -170 degrees SL MUSE Calculated T [place] -163 degrees [facility] MUSE Interpretation EKG NORMAL SINUS RHYTHM RIGHT BUNDLE BRANCH BLOCK T WAVE ABNORMALITY, CONSIDER INFERIOR ISCHEMIA ABNORMAL ECG NO PREVIOUS ECGS AVAILABLE Confirmed by ANYA RICKS MD ([id number]) on 01/26/2024 7:30:32 AM [facility] 01/25/2024 4:33 PM CDT 01/26/2024 7:30 AM CDT Azalia Goodson MD ECG ORDERABLES Performing Organization Address [facility] Co de Phone Number [facility] MUSE * CT HEAD WO CONTRAST (01/25/2024 7:04 AM CDT) Only the most recent of2 resultswithin the time period is included. Anatomical Region Laterality Modality Head Computed Tomogra phy 01/25/2024 12:5 3 PM CDT Impressions 01/25/2024 2:23 PM CDT IMPRESSION: 1.Redemonstrated acute subdural hematoma along the interhemispheric falx with extension along the left tentorial leaflet measuring 6 mm in thickness, grossly unchanged from prior. 2.No new acute intracranial hemorrhage. > Dictated by Juan Miguel Francisco DO (residential real estate assistant) Elaine Wright MD have personally reviewed and interpreted this examination/study. > Interpreting Provider: Elaine Milton MD on 01/25/2024 2:23 PM Narrative 01/25/2024 2:23 PM CDT PROCEDURE: ??CT HEAD WO CONTRAST, DATE/TIME OF EXAM: ??01/25/2024 7:04 AM, LOCATION ??[facility] INDICATION: [id number].XXXA: Fall, initial encounter ADDITIONAL CLINICAL INFORMATION: Ordering Provider Reason For Exam: ??R/O worsening ICH COMPARISON: CT head 01/24/2024 at 10:02 PM TECHNIQUE: CT of the head was performed without contrast according to standard protocol. CT dose reduction technique was used, including Automated Exposure Control. FINDINGS: Redemonstrated acute subdural hematoma along the interhemispheric falx with mild local mass effect causing effacement of the adjacent sulci, overall relatively unchanged from prior exam and measuring 6 mm in thickness (image 53 series 6, image 13 series 4). There is extension of the subdural hematoma along the left tentorial leaflet. Questionable trace extra-axial blood products along the left cerebral convexity (image 21 series 4, image 36 series 6), unchanged from prior. There is mild cerebral volume loss with associated ex vacuo ventricular dilatation. The basilar cisterns are patent. No mass effect or midline shift is seen. The pickard-white matter differentiation is normal. Periventricular white matter hypoattenuation is indicative of chronic small vessel ischemic disease. There is vascular calcification of the carotid siphons and V4 segments of the vertebral arteries. The orbits appear normal. The paranasal sinuses are clear. The mastoid air cells are clear. Redemonstrated frontal scalp hematoma. Redemonstrated hyperostosis frontalis interna. Procedure Note Elaine Milton MD - 01/25/2024 PROCEDURE: CT HEAD WO CONTRAST, DATE/TIME OF EXAM: 01/25/2024 7:04 AM, LOCATION [facility] INDICATION: [id number].XXXA: Fall, initial encounter ADDITIONAL CLINICAL INFORMATION: Ordering Provider Reason For Exam: R/O worsening ICH COMPARISON: CT head 01/24/2024 at 10:02 PM TECHNIQUE: CT of the head was performed without contrast according to standard protocol. CT dose reduction technique was used, including Automated Exposure Control. FINDINGS: Redemonstrated acute subdural hematoma along the interhemispheric falxwith mild local mass effect causing effacement of the adjacent sulci, overall relatively unchanged from prior exam and measuring 6 mm in thickness(image 53 series 6, image 13 series 4). There is extension of the subdural hematoma along the left tentorial leaflet. Questionable traceextra-axial blood products along the left cerebral convexity (image 21 series 4,image 36 series 6), unchanged from prior. There is mild cerebral volume loss with associated ex vacuo ventricular dilatation. The basilar cisterns are patent. No mass effect or midline shift is seen. The pickard-white matter differentiation is normal. Periventricular white matter hypoattenuation is indicative of chronicsmall vessel ischemic disease. There is vascular calcification of the carotid siphons and V4 segments of the vertebral arteries. The orbits appear normal. The paranasal sinuses are clear. The mastoid air cells areclear. Redemonstrated frontal scalp hematoma. Redemonstrated hyperostosis frontalis interna. IMPRESSION: 1.Redemonstrated acute subdural hematoma along the interhemispheric falx with extension along the left tentorial leaflet measuring 6 mm in thickness, grossly unchanged from prior. 2.No new acute intracranial hemorrhage. > Dictated by Juan Miguel Francisco DO (residential real estate assistant) Elaine Wright MD have personally reviewed and interpretedthis examination/study. > Interpreting Provider: Elaine Milton MD on 01/25/2024 2:23 PM Juan Miguel Gonzalez MD CT ORDERABLES * CT FACIAL BONES WO CONTRAST (01/24/2024 10:05 PM CDT) Anatomical Region Laterality Modality Head Computed Tomogra phy 01/24/2024 10:3 0 PM CDT Impressions 01/24/2024 11:50 PM CDT IMPRESSION: 1.Small volume acute subdural hematoma along the superior parasagittal falx causing mild local mass effect and effacement of the adjacent sulci extending into the left tentorial leaflet, measuring up to 6 cm maximum diameter. 2.Large soft tissue hematoma within the anterior frontal scalp. 3.No acute facial bone fractures identified. > Dictated by Ricky Roach MD ([employer]) I, Elaine Milton MD have personally reviewed and interpreted this examination/study. > Interpreting Provider: Elaine Milton MD on 01/24/2024 11:50 PM Narrative 01/24/2024 11:50 PM CDT PROCEDURE: ??CT HEAD WO CONTRAST, CT FACIAL BONES WO CONTRAST, DATE/TIME OF EXAM: ??01/24/2024 10:05 PM, LOCATION ??[facility] INDICATION: [id number].XXXA: Fall, initial encounter EXAMINATION: 1. Computed tomography (CT) of the head without contrast 2. CT of the maxillofacial bones, orbits, and paranasal sinuses without contrast TECHNIQUE: CT of the head ??and maxillofacial bones, orbits, and paranasal sinuses was performed without contrast according to standard protocol. CT dose reduction technique was used, including Automated Exposure Control. COMPARISON: No prior study is available for comparison at the time of this dictation. FINDINGS: Head: Acute subdural hematoma along the superior parasagittal falx causing mild local mass effect and effacement of the adjacent sulci extending into the left tentorial leaflet, measuring up to 6 mm in thickness (series 4, image 13 and series 7, image 51). Large soft tissue hematoma/swelling within the anterior frontal scalp, measuring up to 3.7 x 1.5 cm. It is unclear whether there is trace left cerebral convexity blood products versus artifacts. There is mild cerebral volume loss with associated ex vacuo ventricular dilatation. The basilar cisterns are patent. No midline shift is seen. The pickard-white matter differentiation otherwise appears normal. Periventricular white matter hypoattenuation is indicative of chronic small vessel ischemic disease. There is vascular calcification of the carotid siphons and faintly the V4 segments of the vertebral arteries. No acute calvarial fracture is identified. Hyperostosis frontalis interna is incidentally noted. Maxillofacial: Other than bilateral cataract extractions, the orbits appear normal. 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 There is mild paranasal sinus disease. The nasal septum is deviated to the right. There is a prominent pablo bullosa of the right middle turbinate. ??Scattered periodontal disease with dental work and cerclage wires. The hard palate, mandible, and temporomandibular joints appear otherwise grossly unremarkable. No acute facial bone fractures are identified. Decreased pneumatization of the bilateral mastoid air cells. Procedure Note Elaine Milton MD - 01/24/2024 PROCEDURE: CT HEAD WO CONTRAST, CT FACIAL BONES WO CONTRAST, DATE/TIMEOF EXAM: 01/24/2024 10:05 PM, LOCATION [facility] INDICATION: [id number].XXXA: Fall, initial encounter EXAMINATION: 1. Computed tomography (CT) of the head without contrast 2. CT of the maxillofacial bones, orbits, and paranasal sinuses without contrast TECHNIQUE: CT of the head and maxillofacial bones, orbits, andparanasal sinuses was performed without contrast according to standard protocol.CT dose reduction technique was used, including Automated Exposure Control. COMPARISON: No prior study is available for comparison at the time ofthis dictation. FINDINGS: Head: Acute subdural hematoma along the superior parasagittal falx causingmild local mass effect and effacement of the adjacent sulci extending intothe left tentorial leaflet, measuring up to 6 mm in thickness (series 4,image 13 and series 7, image 51). Large soft tissue hematoma/swelling withinthe anterior frontal scalp, measuring up to 3.7 x 1.5 cm. It is unclearwhether there is trace left cerebral convexity blood products versus artifacts. There is mild cerebral volume loss with associated ex vacuo ventricular dilatation. The basilar cisterns are patent. No midline shift is seen.The pickard-white matter differentiation otherwise appears normal.Periventricular white matter hypoattenuation is indicative of chronic small vesselischemic disease. There is vascular calcification of the carotid siphons andfaintly the V4 segments of the vertebral arteries. No acute calvarial fractureis identified. Hyperostosis frontalis interna is incidentally noted. Maxillofacial: Other than bilateral cataract extractions, the orbits appear normal. A 1cm osteoma within the left frontal sinus. There is mild paranasal sinus disease. The nasal septum is deviated to the right. There is a prominent pablo bullosa of the right middle turbinate. Scattered periodontal disease with dental work and cerclage wires. The hard palate, mandible,and temporomandibular joints appear otherwise grossly unremarkable. No acute facial bone fractures are identified. Decreased pneumatization of the bilateral mastoid air cells. IMPRESSION: 1.Small volume acute subdural hematoma along the superior parasagittalfalx causing mild local mass effect and effacement of the adjacent sulci extending into the left tentorial leaflet, measuring up to 6 cm maximum diameter. 2.Large soft tissue hematoma within the anterior frontal scalp. 3.No acute facial bone fractures identified. > Dictated by Ricky Roach MD ([employer]) IElaine MD have personally reviewed and interpretedthis examination/study. > Interpreting Provider: Elaine Milton MD on 01/24/2024 11:50 PM Juan Miguel Gonzalez MD CT ORDERABLES * BLOOD TYPE VERIFICATION (01/24/2024 5:37 PM CDT) ABO Rh A POS 01/24/2024 6:2 2 PM CDT [facility] BLOOD B[facility] LAB Blood Bank BLOOD SPECIMEN / Unknown Venipuncture / Unknown 01/24/2024 5:37 PM CDT 01/24/2024 5:46 PM CDT Juan Miguel Gonzalez MD LAB - BLOOD BANK ORD ERABLES [facility]OD [facility] [address] [place] [address], [facility] [phone] * XR CHEST 1VW PORTABLE (01/24/2024 4:31 PM CDT) Anatomical Region Laterality Modality Chest Radiographic Nae ging 01/24/2024 4:31 PM CDT Narrative 01/25/2024 8:14 AM CDT PROCEDURE: ??XR CHEST 1VW PORTABLE, DATE/TIME OF EXAM: ??01/24/2024 4:31 PM, LOCATION ??[facility] INDICATION: W19.XXXA: Fall, initial encounter COMPARISON: Chest radiograph dated 05/19/2005 TECHNIQUE: Frontal radiograph of the chest. FINDINGS/IMPRESSION: Mild bibasilar, right greater than left airspace opacification. Findings are favored to represent atelectasis. Airspace disease including aspiration cannot be excluded. There is no pleural effusion or pneumothorax. The cardiac silhouette is enlarged for this AP view. The mediastinal silhouette is normal. Atherosclerotic calcifications the aorta. Degenerative changes are noted in the thoracic spine and shoulders. Report dictated by Ricky Roach MD, ([employer]). Rosas Wright MD have personally reviewed and interpreted this examination/study. > Interpreting Provider: Rosas Davenport MD on 01/25/2024 8:14 AM Procedure Note Rosas Davenport MD - 01/25/2024 PROCEDURE: XR CHEST 1VW PORTABLE, DATE/TIME OF EXAM: 01/24/2024 4:31PM, LOCATION [facility] INDICATION: W19.XXXA: Fall, initial encounter COMPARISON: Chest radiograph dated 05/19/2005 TECHNIQUE: Frontal radiograph of the chest. FINDINGS/IMPRESSION: Mild bibasilar, right greater than left airspace opacification. Findings are favored to represent atelectasis. Airspace disease includingaspiration cannot be excluded. There is no pleural effusion or pneumothorax. The cardiac silhouette is enlarged for this AP view. The mediastinalsilhouette is normal. Atherosclerotic calcifications the aorta. Degenerativechanges are noted in the thoracic spine and shoulders. Report dictated by Ricky Roach MD, ([employer]). Rosas Wright MD have personally reviewed and interpreted this examination/study. > Interpreting Provider: Rosas Davenport MD on 01/25/2024 8:14 AM Juan Miguel Gonzalez MD DIAGNOSTIC IMAGING O RDERABLES * XR PELVIS 1 OR 2VW (01/24/2024 4:31 PM CDT) Anatomical Region Laterality Modality Pelvis Radiographic Nae ging 01/24/2024 4:35 PM CDT Impressions 01/25/2024 8:14 AM CDT IMPRESSION: No acute fracture identified. Report dictated by Ricky Roach MD, ([employer]). Rosas Wright MD have personally reviewed and interpreted this examination/study. > Interpreting Provider: Rosas Davenport MD on 01/25/2024 8:14 AM Narrative 01/25/2024 8:14 AM CDT PROCEDURE: ??XR PELVIS 1 OR 2VW, DATE/TIME OF EXAM: ??01/24/2024 4:31 PM, LOCATION ??[facility] INDICATION: W19.XXXA: Fall, initial encounter COMPARISON: None. FINDINGS: No acute fracture is identified. The femoral heads appear well-seated within their respective acetabula. Degenerative changes of bilateral hip joints. The pubic symphysis is intact. The bones are mildly diffusely demineralized. The sacroiliac joints are normal. Procedure Note Rosas Davenport MD - 01/25/2024 PROCEDURE: XR PELVIS 1 OR 2VW, DATE/TIME OF EXAM: 01/24/2024 4:31 PM, LOCATION [facility] INDICATION: W19.XXXA: Fall, initial encounter COMPARISON: None. FINDINGS: No acute fracture is identified. The femoral heads appear well-seated within their respective acetabula. Degenerative changes of bilateral hip joints. The pubic symphysis is intact. The bones are mildly diffusely demineralized. The sacroiliac joints are normal. IMPRESSION: No acute fracture identified. Report dictated by Ricky Roach MD, ([employer]). I, Rosas Davenport MD have personally reviewed and interpreted this examination/study. > Interpreting Provider: Rosas Davenport MD on 01/25/2024 8:14 AM Juan Miguel Gonzalez MD DIAGNOSTIC IMAGING O RDERABLES * TEG 6 GLOBAL HEMOSTASIS W/ LYSIS (01/24/2024 4:20 PM CDT) Citrated Kaolin R (Reaction Time) 5.1 4.6 - 9.1 min 01/24/2024 5:31 PM CDT [facility] Citrated Kaolin LY30 (Lysis) 0.1 0.0 - 2.6 % 01/24/2024 5:31 PM CDT [facility] Citrated Functional Fibrinogen MA (Max Amplitude) 27.4 15.0 - 32.0 mm 01/24/2024 5:31 PM CDT [facility] Citrated RapidTEG MA (Max Amplitude) 64.7 52.0 - 70.0 mm 01/24/2024 5:31 PM CDT [facility] Blood BLOOD SPECIMEN / Unknown Venipuncture / Unknown 01/24/2024 4:20 PM CDT 01/24/2024 4:34 PM CDT Juan Miguel Gonzalez MD LAB - HEMATOLOGY ORD ERABLES [facility] [address] [place] [address], [facility] [phone] * TEG 6S PLATELET MAPPING (01/24/2024 4:20 PM CDT) TEGPLM (Max Amplitude) Koalin 64.7 53.0 - 68.0 mm 01/24/2024 5:31 PM CDT [facility] TEGPLM (Max Amplitude) ACTF 19.0 2.0 - 19.0 mm 01/24/2024 5:31 PM CDT [facility] TEGPLM (Max Amplitude) ADP 61.6 45.0 - 69.0 mm 01/24/2024 5:31 PM CDT [facility] TEGPLM (Max Amplitude) AA 61.6 51.0 - 71.0 mm 01/24/2024 5:31 PM CDT [facility] TEGPLM %Inhibition ADP 6.8 0.0 - 17.0 % 01/24/2024 5:31 PM CDT [facility] TEGPLM %Inhibition AA 6.8 0.0 - 11.0 % 01/24/2024 5:31 PM CDT [facility] TEGPLM %Aggregation ADP 93.2 83.0 - 100.0 % 01/24/2024 5:31 PM T [facility] TEGPLM % Aggregation AA 93.2 89.0 - 100.0 % 01/24/2024 5:31 PM CDT [facility] Blood BLOOD SPECIMEN / Unknown Venipuncture / Unknown 01/24/2024 4:20 PM CDT 01/24/2024 4:34 PM CDT Juan Miguel Gonzalez MD LAB - HEMATOLOGY ORD ERABLES [address] [address], [facility] [phone] * PTT [facility] (01/24/2024 4:20 PM CDT) APTT 36.1 23.0 - 38.4 Seconds 01/24/2024 5:02 PM CDT [facility] Comment:Suggested therapeuti c range for full dose I.V. unfractionated heparin therapy for venous thromboembolism is 71 to 109 seconds. Blood BLOOD SPECIMEN / Unknown Venipuncture / Unknown 01/24/2024 4:20 PM CDT 01/24/2024 4:26 PM CDT Juan Miguel Gonzalez MD LAB - COAGULATION OR DERABLES Performing Organization Address [facility] Co de Phone Number [address] [address], [facility] [phone] * (ABNORMAL) PT-INR [facility] (01/24/2024 4:20 PM CDT) PT 16.3(H) 12.1 - 14.8 Seconds 01/24/2024 5:02 PM CDT [facility] INR 1.4 See Comment 01/24/2024 5:02 PM CDT [facility] Comment:The suggested therap eutic range for standard coumadin (warfarin) therapy is an INR of 2.0-3.0. For high-risk patients (Mechanical Mitral Valve Prosthesis, etc.), the suggested prophylactic therapeutic range is an INR of 2.5-3.5. Blood BLOOD SPECIMEN / Unknown Venipuncture / Unknown 01/24/2024 4:20 PM CDT 01/24/2024 4:26 PM CDT Juan Miguel Gonzalez MD LAB - COAGULATION OR DERABLES Performing Organization Address [facility] Co de Phone Number [address] [address], [place] [phone] * TYPE + SCREEN PANEL (01/24/2024 4:20 PM CDT) [facility] Antibody Screen NEG 5:15 PM CDT [facility] ABO Rh A POS 01/24/2024 5:15 PM CDT [facility] Blood Bank BLOOD SPECIMEN / Unknown Venipuncture / Unknown 01/24/2024 4:20 PM CDT 01/24/2024 4:29 PM CDT Juan Miguel Gonzalez MD LAB - BLOOD BANK ORD ERABLES [facility] [address] [place] [address], [facility] [phone] * (ABNORMAL) CBC W AUTO DIFFERENTIAL (01/24/2024 4:20 PM CDT) [facility] WBC 3.2(L) 4.0 - 10.7 x10E9/L 01/24/2024 4:41 PM [facility] RBC Count 2.88(L) 3.90 - 5.20 x10E12/L 01/24/2024 4:41 PM [facility] Hemoglobin 9.0(L) 11.9 - 15.8 g/dL 01/24/2024 4:41 PM [facility] Hematocrit 27.3(L) 34.8 - 46.1 % 01/24/2024 4:41 PM [facility] MCV 94.8 80.0 - 98.0 fL 01/24/2024 4:41 PM [facility] MCH 31.3 26.7 - 33.6 pg 01/24/2024 4:41 PM [facility] MCHC 33.0 31.7 - 36.3 g/dL 01/24/2024 4:41 PM [facility] RDW-CV 16.2(H) 11.3 - 14.8 % 01/24/2024 4:41 PM [facility] Platelet Count 103(L) 150 - 420 x10E9/L 01/24/2024 4:41 PM [facility] MPV 11.2 7.8 - 11.4 fL 01/24/2024 4:41 PM [facility] Neutrophil % 64.0 41.0 - 74.0 % 01/24/2024 4:41 PM [facility] Lymphocyte % 25.6 17.0 - 47.0 % 01/24/2024 4:41 PM [facility] Monocyte % 7.6 3.0 - 11.0 % 01/24/2024 4:41 PM [facility] Eosinophil % 2.2 0.0 - 7.0 % 01/24/2024 4:41 PM [facility] Basophil % 0.3 0.0 - 1.6 % 01/24/2024 4:41 PM [facility] Immature Granulocytes % 0.3 0.0 - 1.0 % 01/24/2024 4:41 PM [facility] Neutrophil Absolute 2.03 1.60 - 7.50 x10E9/L 01/24/2024 4:41 PM [facility] Lymphocyte Absolute 0.81(L) 1.00 - 4.40 x10E9/L 01/24/2024 4:41 PM [facility] Monocyte Absolute 0.24 0.15 - 1.00 x10E9/L 01/24/2024 4:41 PM [facility] Eosinophil Absolute 0.07 0.00 - 0.60 x10E9/L 01/24/2024 4:41 PM [facility] Basophil Absolute 0.01 0.00 - 0.13 x10E9/L 01/24/2024 4:41 PM [facility] Blood BLOOD SPECIMEN / Unknown Venipuncture / Unknown 01/24/2024 4:20 PM CDT 01/24/2024 4:28 PM CDT Juan Miguel Gonzalez MD LAB - HEMATOLOGY ORD ERABLES [facility] [address] [place] [address], [facility] [phone] * (ABNORMAL) PHOSPHORUS BLOOD (01/24/2024 4:20 PM CDT) Phosphorus 2.4(L) 2.9 - 5.1 mg/dL 01/24/2024 5:06 PM CDT [facility] Blood BLOOD SPECIMEN / Unknown Venipuncture / Unknown 01/24/2024 4:20 PM CDT 01/24/2024 4:53 PM CDT Juan Miguel Gonzalez MD LAB - CHEMISTRY NAEEM PIZARRO [address] [address], [facility] [phone] * MAGNESIUM BLOOD (01/24/2024 4:20 PM CDT) Magnesium 2.2 1.6 - 2.6 mg/dL 01/24/2024 5:06 PM CDT [facility] Blood BLOOD SPECIMEN / Unknown Venipuncture / Unknown 01/24/2024 4:20 PM CDT 01/24/2024 4:53 PM CDT Juan Miguel Gonzalez MD LAB - CHEMISTRY NAEEM PIZARRO [address] [address], [facility] [phone] * ALCOHOL ETHYL BLOOD (01/24/2024 4:20 PM CDT) Ethanol (mg/dL) <10 <10 mg/dL 5:06 PM CDT [facility] Ethanol Calculated (g/dL) <0.010 <=0.010 g/dL 01/24/2024 5:06 PM CDT [facility] Blood BLOOD SPECIMEN / Unknown Venipuncture / Unknown 01/24/2024 4:20 PM CDT 01/24/2024 4:53 PM CDT Narrative [facility] - 01/24/2024 5:06 PM CDT Ethanol Interp <10: None Detected. Depression of GLOBAL ENGINEERING MANAGER: >100 mg/dl Potentially Critical: >250 mg/dl Potentially Fatal >400 mg/dl Ethanol in the patient's blood will contribute to the osmolar gap. Ethanol's contribution to the osmolar gap can be estimated by dividing the concentration of ethanol in mg/dL by 4.6. This test is for clinical use only and does not equal a DONN for legal purposes. Juan Miguel Gonzalez MD LAB - CHEMISTRY NAEEM PIZARRO Performing Organization Address City/[facility]/ZIP Co de Phone Number [facility] [address] [place] [address], [facility] [phone] * PATHOLOGY/GENETICS HISTORICAL-ONBASE (02/16/2014) Only the most recent of3 resultswithin the time period is included. 02/16/2014 Narrative [facility] - 02/23/2014 7:41 AM CDT Lisa aPrra MD LAB - CHEMISTRY NAEEM PIZARRO Performing Organization Address [facility] [place] [address], [facility] * PAP IG RFLX HPV ASCU (07/21/2013) Only the most recent of4 resultswithin the time period is included. Endocervical 07/21/2013 Narrative [facility] - 07/29/2013 7:49 AM APPLIANCE SERVICE SUPERVISOR Lisa Parra MD LAB - PATHOLOGY/CYTO LOGY ORDERABLES Performing Organization Address [facility] [place] [address], [facility] * LAB HISTORICAL RESULTS-ONBASE (03/09/2011) Only the most recent of3 resultswithin the time period is included. 03/09/2011 Historical Provider LAB - CHEMISTRY O RDERABLES Performing Organization Address City/[facility]/ZIP Co de Phone Number [facility] Care Teams Sheriff Sergeant Relationship Specialty Start Date End Date Khang Greer MD [address] [place] [address] PCP - General 10/31/16
--- OUTSIDE RECORDS SUMMARY | 2024-09-29 13:59 | XMS_ITS | Clinical Summary ---
Author Organization [facility] Address [address] [place] [address] Care Team Providers Care Disk Grinder Name Role Phone Khang Greer MD Primary Care Provider Source Comments [facility],non-[facility] Affiliates and Associated Physician Practices is amultiple site organization consisting of ambulatory clinics and hospital sitesin [place], [place], [place] and [place]. This disclosure is being madepursuant to the Care Everywhere program and may not contain all information available regarding this patient. Last updated 18.[facility] Allergies No known active allergies Medications * [...] Visit [facility] [address] [place] [id number] Chad Reza MD [facility] [place] [address] Health Maintenance Due Date Last Done Comments BONE DENSITY TESTING 1945 MEDICARE AWV ? 12 MONTHS 1945 HEPATITIS C SCREENING 01/17/1964 DTAP/TDAP/TD VACCINES (1 - Tdap) 1965 PNEUMOCOCCAL VACCINE 50+ (1 of 2 - PCV) 1965 ZOSTER VACCINE (1 of 2) 01/22/1996 Respiratory Syncytial Virus (RSV) Vaccine Pt: or over 60 yrs (1 - 1-dose 75+ series) 2021 COVID-19 VACCINE ( season) 2024 07/01/2023, 06/13/2022, 06/08/2021, Additional history exists INFLUENZA VACCINE (#1) 2024 , 05/29/2021, 06/18/2020, Additional history exists DEPRESSION SCREENING 08/26/2024 HEPATITIS B VACCINE Aged Out No longe r eligible based on patient's age to complete this topic HIB VACCINE Aged Out No longer eligi ble based on patient's age to complete this topic HPV VACCINE Aged Out No longer eligi ble based on patient's age to complete this topic MENINGOCOCCAL (Group B) VACCINE Aged Out No longer eligible based on patient's age to complete this topic MENINGOCOCCAL VACCINE Aged Out No ema alma delia eligible based on patient's age to complete this topic Advance Directives * Full Code (Latest Code Status on File) Date Activated Date Inactivated Comments 01/25/2024 2:29 AM 01/26/2024 4:42 PM Care Teams Disk Grinder Relationship Specialty Start Date End Date Khang Greer MD [address] [place] [address] PCP - General 10/31/16
[2024-09-29 14:12] VITALS: BP 98/47; PULSE 76; RESP 16; TEMP 36.9; O2SAT 98
--- NOTE | 2024-09-29 17:28 | ED_ITS ---
HPI - Extremity Injury (Lower) General Chief Complaint: Extremity Injury, Lower Stated Complaint: Fall @ PT-Rt knee-hit head head on window no LOC Time Seen by Provider: 09/29/24 14:30 Focused HPI: Patient is a 71-year-old female who presents to the ER with complaints of right knee pain, R calf pain, and right rib cage pain f ollowing a fall prior to arrival. She reports she was walking into her therapy appointment, attempted to step up outside the building, and reports my R knee gave out on me. She reports she also hit her head during the fall. Patient reports she is not on blood thinners. She endorses a history of congestive heart failure, blood pressure, and COPD. Patient denies any decreased range of motion, extreme swelling, recent signs/symptoms of illness, one-sided weakness/numbness/tingling. GENERAL: Well-appearing, obese, and in no acute distress. HEAD: Normocephalic, atraumatic. CHEST: Clear to auscultation. ?No respiratory distress. HEART: Regular rate and rhythm.? NEURO: ?Alert and oriented x3. Patient screened in triage and initial orders placed.? ?Additional care and disposition to be based upon?diagnostic testing and treatment. Related Data Home Medications ?Medication ?Instructions ?Recorded ?Confirmed ?Last Taken ?Type cyanocobalamin (vitamin B-12) 1,000 mcg PO DAILY 10/08/19 08/14/24 10/25/19 History 1,000 mcg capsule furosemide 20 mg tablet 20 mg PO DAILY 10/08/19 08/14/24 10/26/19 History fenofibrate 160 mg tablet 145 mg PO DAILY 05/18/20 08/14/24 Unknown History meloxicam 15 mg tablet 15 mg PO DAILY 05/18/20 08/14/24 Unknown History citalopram 10 mg tablet 10 mg PO DAILY 03/13/21 08/14/24 Unknown History lisinopril 20 mg tablet 40 mg PO DAILY 03/13/21 08/14/24 Unknown History pantoprazole 40 mg tablet,delayed 40 mg PO QAM 03/13/21 08/14/24 Unknown History release ferrous sulfate 325 mg (65 mg 325 mg PO DAILY 04/09/24 08/14/24 Unknown History iron) tablet Allergies Allergy/AdvReac Type Severity Reaction Status Date / Time No Known Allergies Allergy Verified 08/14/24 10:14 Review of Systems Review of Systems: All systems reviewed & are unremarkable except as noted in HPI and below PMFSH Past Medical History Medical History Falls Adenomatous colon polyp Thrombocytopenia Colon cancer screening Pancytopenia Cirrhosis Abnormal laboratory test Diverticulosis Pancreatitis gallstone Anxiety Gastroesophageal reflux disease DEJA (obstructive sleep apnea) No longer on CPAP after 100 lb weight loss Asthma Hypercholesterolemia Diabetes Hemoglobin A1c 5.26 February 2020 Essential hypertension Psoriasis Surgical History Surgical History History of colonoscopy with polypectomy History of total left knee replacement (10/2019) Hx of hysterectomy Due to uterine cancer History of cholecystectomy Family History Family History Father Asthma Mother Hypertension Diabetes mellitus Acute myocardial infarction Sibling End-stage renal disease on hemodialysis sister COPD (chronic obstructive pulmonary disease) brother and sister Acute myocardial infarction 2 brothers Renal cancer sister Social History Social History Social History: She has 2 sons. 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 patient is a lifelong nonsmoker. She does not use any alcohol marijuana illicit drugs. The patient desires to be a full code. Her oldest son is the durable power document review attorney for healthcare. Code status: Full code Surrogate decision maker: Oldest son Smoking status: Never smoker Alcohol intake: never Substance use: never Substance use type: does not use Do You Feel Safe in your Home?: Yes Lack of Transportation: No Lack of Food: Never True Current Housing: I Have Housing Concerned About Future Housing: No Difficulty Paying Gas/Electric Bills: No Difficulty Paying for Meds: No Currently Unemployed: No Education: High School Diploma/GED Difficulty w/ Childcare or Family Care: No Living arrangements: alone Additional living arrangements comments: She lives in her own home. She has been since 1989 Occupation/Education: retired Spiritual care concerns: No Agree to blood products: Yes Exam Narrative: GENERAL: Well appearing, obese, non-toxic, in no acute distress. HEAD: Normocephalic, atraumatic. NECK: Supple. No adenopathy, no masses. RESPIRATORY: Airway patent, respirations nonlabored. Clear to auscultation bilaterally, no rales, rhonchi, wheezing. CARDIOVASCULAR: Regular rate and rhythm without murmurs, rubs, or gallops. Peripheral pulses 2+ and equal bilaterally. ABDOMINAL: Soft, nontender, nondistended, no hepatosplenomegaly. Normoactive BS. MUSCULOSKELETAL: Moves all extremities. Strength/ROM intact without gross deformities. Endorses right knee pain with manipulation, R rib cage pain. SKIN: Warm, dry, normal color. No rashes. NEURO: A&O X3. Speech clear. Cranial nerves II-XII grossly intact. Steady gait. No ataxic movements. PSYCHIATRIC: Appropriate mood and affect. Normal interaction. Course Vital Signs Vital signs: Vital Signs Temperature 36.9 C 09/29/24 14:12 Pulse Rate 76 09/29/24 14:12 Respiratory Rate 16 09/29/24 14:12 Blood Pressure 98/47 L 09/29/24 14:12 Pulse Oximetry 98 09/29/24 14:12 Temperature 36.9 C 09/29/24 14:12 Pulse Rate 76 09/29/24 14:12 Respiratory Rate 16 09/29/24 14:12 Blood Pressure 98/47 L 09/29/24 14:12 Pulse Oximetry 98 09/29/24 14:12 MDM - Extremity Injury (Lower) MDM Narrative Medical decision making narrative: Patient is a 71-year-old female who presents to the ER with complaints of right knee pain, R calf pain, and right rib cage pain following a fall prior to arrival. She reports she was walking into her therapy appointment, attempted to step up outside the building, and reports my R knee gave out on me. She reports she also hit her head during the fall. Patient reports she is not on blood thinners. She endorses a history of congestive heart failure, blood pressure, and COPD. Patient denies any decreased range of motion, extreme swelling, recent signs/symptoms of illness, one-sided weakness/numbness/tingling. Labs Ordered: None necessary Imaging Ordered: Right knee x-ray, right lower extremity Doppler US, head CT, chest x-ray Medications Ordered: Toradol 30 mg IM Results: No acute findings on any of patient's imaging Diagnosis: Concussion without loss of consciousness, right knee sprain, costochondritis Patient Education/Shared MDM: Results shared with patient. She will receive an injection of Toradol 30mg IM prior to discharge. Patient strongly advised to maintain hydration status upon discharge and follow-up with her PCP. She will be discharged home with no new prescription. Strict return precautions provided. Patient verbalized understanding and is in agreement with plan. Vital signs stable at time of discharge. All questions answered. Differential Diagnosis Differential diagnosis: Likely other (R knee fracture, R knee sprain, concussion without loss of consciousness, R rib fracture, R-sided chest costochondritis) Imaging Data Attestation: I personally reviewed and interpreted this imaging study as follows: Radiologist's impression: Impressions Head CT 09/29/24 15:06 IMPRESSION: 1. Normal brain. Venous Doppler Study 09/29/24 15:07 IMPRESSION: 1. No deep venous thrombosis. Chest X-Ray 09/29/24 15:24 IMPRESSION: 1. Cardiomegaly. Knee X-Ray 09/29/24 15:28 IMPRESSION: 1. Severe right knee osteoarthritis. 2. Small right knee joint effusion. Discharge Plan Discharge Clinical Impression: Right knee sprain, Concussion without loss of consciousness, Costochondral chest pain Patient Disposition: Home, Self-Care Condition: Stable Instructions: Antibiotic Form Additional Instructions: Please return to the ER with an worsening symptoms. Follow-up with primary care provider in the next 2-3 days. Take all regular medications as prescribed. Patient Language: Divehi Prescriptions: No Action albuterol sulfate [Ventolin HFA] 90 mcg/actuation HFA aerosol inhaler 2 puff INHALATION PRN PRN (Reason: Shortness Of Breath) Qty: 8.5 2RF ferrous sulfate 325 mg (65 mg iron) tablet 325 mg PO DAILY furosemide 20 mg Tablet 20 mg PO DAILY cyanocobalamin (vitamin B-12) 1,000 mcg Capsule 1,000 mcg PO DAILY meloxicam 15 mg Tablet 15 mg PO DAILY fenofibrate 160 mg Tablet 145 mg PO DAILY citalopram 10 mg Tablet 10 mg PO DAILY lisinopril 20 mg Tablet 40 mg PO DAILY pantoprazole 40 mg Tablet,Delayed Release (Dr/Ec) 40 mg PO QAM fluticasone propionate 50 mcg/actuation [place],Suspension 2 spray intranasal QAM Qty: 16 0RF lidocaine 5 % adhesive patch,medicated 1 patch topical DAILY PRN (Reason: pain) Qty: 15 0RF Rx Instructions: leave on most painful area for up to 12 hrs tramadol 50 mg tablet 25 mg PO Q6H PRN (Reason: pain) Qty: 10 0RF Follow-up/Referrals: Grupo,DO Shivam [Primary Care Provider] - Time of Disposition: 17:42
[2024-09-29] MEDS: KETOROLAC 30 MG/ML VIAL (*BKC) IM (17:49)
--- OUTSIDE RECORDS SUMMARY | 2024-09-29 18:06 | XMS_ITS ---
Author Organization [facility] Address [address], [facility] [address] [place] [address] Phone Care Team Providers Care Parasitologist Name Role Phone Shivam Lombardo Primary Care Provider + Trini Lazaro MD Unavailable Jordi Olguin MD Unavailable [phone] Active Problems Problem Noted Date Diagnosed Date [...]
--- OUTSIDE RECORDS SUMMARY | 2024-09-29 18:06 | XMS_ITS | Clinical Summary ---
Author Organization [facility] Address [address] [place] [address] Care Team Providers Care Pharmacy Data Analyst Name Role Phone [facility] Shivam Lawson DO [...] OSTEOPOROSIS SCREENING Completed 07/04/2022, [address] [place] [address] MEDICARE PART A AND B [employer] MEDICARE SUPP AESSI Care Teams Pharmacy Data Analyst Relationship Specialty Start Date End Date Shivam Lombardo DO [address] [place] [phone] PCP - General Family Practice 05/13/24
--- OUTSIDE RECORDS SUMMARY | 2024-09-29 18:06 | XMS_ITS | Clinical Summary ---
Author Organization [facility] Address [address] [place] [address] Care Team Providers Care Trench Shovel Operator Name Role Phone Grupo Shivam Lawson DO Primary Care Provider + Kimberly Vieira RN Unavailable [phone] Allergies No known active allergies Medications Glucose Blood test stripIndications :Type 2 diabetes mellitus without complication, without long-term current use of insulin ([facility]) Check blood sugar once daily in AM when fasting 100 strip 11 05/30/20 22 Active Blood Glucose Monitoring Suppl (ONE TOUCH ULTRA 2) w/Device KitIndications:T ype 2 diabetes mellitus without complication, without long-term current use of insulin ([facility]) Check blood sugar once daily in AM when fasting 1 kit 05/30/20 22 Active Lancets (ONETOUCH ULTRASOFT) lancetsIndicatio ns:Type 2 diabetes mellitus without complication, without long-term current use of insulin ([facility]) Check blood sugar once daily in AM when fasting 1 each 11 05/30/20 22 Active pantoprazole EC (PROTONIX) 40 MG tabletIndication s:Gastroesophage al reflux disease, unspecified whether esophagitis present take 1 tablet every day 90 tablet 3 11/11/19 24 Active furosemide (LASIX) 20 MG tabletIndication s:Type 2 diabetes mellitus without complication, without long-term current use of insulin ([facility]) take 1 tablet every day 90 tablet [...] 24 Active citalopram (CELEXA) 10 MG tabletIndication s:YSEDA (generalized anxiety disorder) TAKE 1 TABLET EVERY [...] Gastroesophageal reflux disease 05/18/2024 Cirrhosis of liver ([facility]) 05/18/2024 Care Management 03/31/2024 Iron deficiency anemia 03/27/2024 Overweight with body mass in dex (BMI) of 29 to 29.9 in adult 03/27/2024 Pancytopenia ([facility]) 01/06/2024 SYEDA (generalized anxiety disorder) 05/29/2021 Primary hypertension 05/29/2021 Mixed hyperlipidemia 05/29/2021 Type 2 diabetes mellitus wit h microalbuminuria, without long-term current use of insulin ([facility]) 05/29/2021 S/P total knee replacement, left 05/29/2021 Mild intermittent asthma without complication ([facility] /[facility]) 05/29/2021 Psoriasis 05/29/2021 Resolved Problems Problem Noted Date Diagnosed Date Resolved Date SDH (subdural hematoma) ([facility]) 01/25/2024 01/31/2024 Encounters Date Type Department Care Team Description 09/28/2024 12:50 PM BILLING AND INSURANCE COORDINATOR - 09/28/2024 5:05 PM [facility] Hospital Encounter [facility] [place] [address] Jordi Olguin MD Discharge Disposition: Home or Self Care (Routine Discharge) 09/28/2024 Travel 09/25/2024 Patient Outreach [facility] [address] [address] Kimberly Vieira RN Care Management (CCM) 09/22/2024 Telephone [facility] [address] [address] Shivam Lombardo, DO Information 09/21/2024 4:05 PM BILLING AND INSURANCE COORDINATOR - 09/21/2024 10:39 PM [facility] Emergency [facility] [place] [address] Rosalina Mcbride MD Jerome, Jason P, MD,PHD Abnormal Lab Results Discharge Disposition: Home or Self Care (Routine Discharge) 09/21/2024 Travel 09/16/2024 Patient Outreach [facility] [address] [address] Kimberly Vieira RN Care Management (CCM/) 09/10/[address] [address] Shivam Lombardo, DO Information 09/02/2024 Telephone [facility] [address] [address] Shivam Lombardo, DO Medication Request 08/24/2024 Scan [facility] Scanned, [facility] 08/04/2024 Patient Outreach [address] [address] Kimberly Vieira RN Care Management (CCM) 07/29/2024 1:00 PM BILLING AND INSURANCE COORDINATOR Office Visit [facility] [address] [address] Shivam Lombardo, DO Diabetes (Routine follow up. ); Constipation (The patient states she is more constipated than anything. ) 07/29/2024 Travel 07/27/2024 Scan [facility] INFO [facility]CS Scanned, [facility] 07/08/2024 Patient Outreach [facility] [address] [address] Kimberly Vieira RN Care Management (CCM) 07/06/2024 10:44 AM BILLING AND INSURANCE COORDINATOR - 07/06/2024 11:59 PM BILLING AND INSURANCE COORDINATOR Hospital Encounter [facility] [place] [address] Jordi Olguin MD Discharge Disposition: Home or [...] Sex Assigned at Female 07/29/2024 1:13 PM BILLING AND INSURANCE COORDINATOR Legal Sex Female 8:19 PM CDT Gender Identity Female 09/04/2021 4:46 PM BILLING AND INSURANCE COORDINATOR Sexual Orientation Not on file Occupation Industry Job Start Date Job End Date Not on file Not on file Not on file Not on file Last Filed Vital Signs Vital Sign Reading Time Taken Comments Blood Pressure 123/75 09/28/2024 4:46 PM BILLING AND INSURANCE COORDINATOR Pulse 71 09/28/2024 4:46 PM BILLING AND INSURANCE COORDINATOR Temperature 36.4 ??C (97.6 ??F) 09/28/2024 4:46 PM CS T Respiratory Rate 17 09/28/2024 4:46 PM BILLING AND INSURANCE COORDINATOR Oxygen Saturation 99% 09/28/2024 4:46 PM BILLING AND INSURANCE COORDINATOR Inhaled Oxygen Concentration - - Weight 72.1 kg (159 lb) 09/21/2024 3:29 PM BILLING AND INSURANCE COORDINATOR Height 157.5 cm (5' 2 ) 09/21/2024 3:29 PM BILLING AND INSURANCE COORDINATOR Body Mass Index 29.08 09/21/2024 3:29 PM BILLING AND INSURANCE COORDINATOR Plan of Treatment Health Maintenance Due Date Last Done Comments Kidney Health Evaluation 1945 Annual Medicare Wellness Visit 2011 Lipid Panel 08/08/2024 08/08/2023, 04/28, 06/08/2021 COVID-19 Vaccine ( season) 2024 06/23/2024, 07/01/2023, 06/13/2022, Additional history exists PHQ-2 (Physician Huslia) 08/26/2024 11/11/2023 Diabetes: Retinopathy Eye Exam 09/02/2024 09/02/2023, 08/28/2022 DTaP, Tdap and Td Vaccines (1 - Tdap) 11/10/2024 Postponed from 1965 (No Insurance Coverage) Zoster Vaccines (1 of 2) 11/10/2024 Pos tponed from 01/22/1996 (Going to Outside Clinic) Hemoglobin A1C 01/27/2025 07/29/2024, 0701/2024, 11/11/2023, Additional history exists Dexa Scan (General) 07/29/2025 07/04/2022 Postpone d from 07/04/2024 (Patient Refused) Pneumococcal Vaccine: 65+ Years Completed 02/18/2018, 02/08/2017 Hepatitis C Completed 02/04/2024, 02/01/2023 Colorectal Cancer Screening Colonoscopy (10 Years) Discontinued 02/12/2024, 10/29/2016 Influenza Adult Completed 06/23/2024, 11/0 01/2023, 06/13/2022, Additional history exists RSV Immunization [...] the below: Lifestyle On track(2024 3:18 PM BILLING AND INSURANCE COORDINATOR) Kimberly Dupree RN Note: .1) Patient will [...] the below: Lifestyle On track(2024 3:18 PM BILLING AND INSURANCE COORDINATOR) Kimberly Dupree RN Note: 1) Patient will [...] the below: Lifestyle On track(2024 3:18 PM BILLING AND INSURANCE COORDINATOR) Kimberly Dupree RN Note: .1) patient will [...] RED BLOOD CELLS Routine 09/28/2024 2:45 PM BILLING AND INSURANCE COORDINATOR TYPE & SCREEN Routine 09/28/2024 1:15 PM BILLING AND INSURANCE COORDINATOR MDS (myelodysplastic syndrome), low grade (CMS/HCC HHS/HCC) TRANSFUSE RED BLOOD CELLS STAT 09/21/2024 8:12 PM BILLING AND INSURANCE COORDINATOR TRANSFUSE RED BLOOD CELLS STAT 09/21/2024 5:51 PM BILLING AND INSURANCE COORDINATOR ECG 12-LEAD Routine 09/21/2024 4:33 PM BILLING AND INSURANCE COORDINATOR IRON SAT PANEL (IRON,IBC,%SAT) STAT 09/21/2024 4:15 PM BILLING AND INSURANCE COORDINATOR TROPONIN, QUANT STAT 09/21/2024 4:15 PM BILLING AND INSURANCE COORDINATOR COMPREHENSIVE METABOLIC PANEL STAT 09/21/2024 4:15 PM BILLING AND INSURANCE COORDINATOR PROTHROMBIN TIME, VENOUS STAT 09/21/2024 4:15 PM BILLING AND INSURANCE COORDINATOR CBC W/DIFF AUTOMATED STAT 09/21/2024 4:15 PM BILLING AND INSURANCE COORDINATOR TYPE & SCREEN STAT 09/21/2024 4:14 PM BILLING AND INSURANCE COORDINATOR XR CHEST PORTABLE STAT 09/21/2024 4:1 2 PM BILLING AND INSURANCE COORDINATOR COLLECT.CAPILLARY (FNGR,HEEL,EAR) Routine 07/29/2024 1:18 PM BILLING AND INSURANCE COORDINATOR Type 2 diabetes mellitus with stage 2 chronic kidney disease, without long-term current use of insulin (CMS/HCC HHS/HCC) HEMOGLOBIN, GLYCOSYLATED Routine 07/29/2024 Type 2 diabetes mellitus with stage 2 chronic kidney disease, without long-term current use of insulin (CMS/HCC HHS/HCC) US ABD LIMITED Routine 07/06/2024 11:28 AM BILLING AND INSURANCE COORDINATOR MDS (myelodysplastic syndrome), low grade (CMS/HCC HHS/HCC) COLONOSCOPY GENERIC (SCAN ORDER) 02/12/2024 HEPATITIS PANEL,ACUTE Routine 02/04/2024 11:05 AM CDT Pancytopenia, acquired (CMS/HCC HHS/HCC) Elevated liver enzymes Other cirrhosis of liver (CMS/HCC HHS/HCC) DIABETIC RETINOPATHY EXAM (NEGATIVE)(SCAN ORDER) Routine 09/02/2023 LIPID PANEL Routine 08/08/2023 11:25 AM BILLING AND INSURANCE COORDINATOR Type 2 diabetes mellitus with microalbuminuria, without long-term current use of insulin (CMS/HCC HHS/HCC) Mixed hyperlipidemia Primary hypertension BONE DENSITY GENERIC (SCAN ORDER) 07/04/2022 from Last 3 Months or Most Recently Relevant to Health Maintenance Results * TRANSFUSE RED BLOOD CELLS (09/28/2024 4:46 PM BILLING AND INSURANCE COORDINATOR) Only the most recent of3 resultswithin the time period is included. us Jordi Olguin MD NURSING TREATMENT ORDERABLES - BLOOD ADMIN Final Result * TYPE & SCREEN (09/28/2024 1:15 PM BILLING AND INSURANCE COORDINATOR) Only the most recent of2 resultswithin the time period is included. UNITS ORDERED 1 09/28/2024 2:12 PM BILLING AND INSURANCE COORDINATOR [facility] ABO/RH A POSITIVE 09/28/2024 2:12 PM BILLING AND INSURANCE COORDINATOR [facility] ANTIBODY SCREEN NEGATIVE 2:12 PM BILLING AND INSURANCE COORDINATOR [facility] SAMPLE EXPIRATION 10/01/2024,2359 09/28/2024 2:12 PM BILLING AND INSURANCE COORDINATOR [facility] BLOOD UNIT NUMBER [id number] 09/28/2024 2:12 PM BILLING AND INSURANCE COORDINATOR [facility] PRODUCT: PC LEUKOPOOR 09/28/2024 2:12 PM BILLING AND INSURANCE COORDINATOR [facility] UNIT DIVISION 00 09/28/2024 2:12 PM BILLING AND INSURANCE COORDINATOR [facility] BLOOD UNIT STATUS TRANSFUSED,FINAL 09/29/2024 6:16 AM BILLING AND INSURANCE COORDINATOR [facility] ISSUE DATE/TIME [id number] 025 6:16 AM BILLING AND INSURANCE COORDINATOR [facility] PRODUCT CODE [id number] 09/29/2024 6:16 AM BILLING AND INSURANCE COORDINATOR [facility] ABO/RH Unit A POS 09/29/2024 6:16 AM BILLING AND INSURANCE COORDINATOR [facility] ABO/RH UNIT ISBT CODE 6200 09/29/2024 6:16 AM BILLING AND INSURANCE COORDINATOR [facility] BLOOD UNIT EXPIRATION DATE [id number] 09/29/2024 6:16 AM BILLING AND INSURANCE COORDINATOR [facility] TRANSFUSION STATUS OK TO TRANSFUSE 09/28/2024 2:12 PM BILLING AND INSURANCE COORDINATOR [facility] CROSSMATCH COMPATIBLE-EXM 09/28/2024 2:12 PM BILLING AND INSURANCE COORDINATOR [facility] 09/28/2024 1:15 PM BILLING AND INSURANCE COORDINATOR Jordi Olguin MD BLOOD BANK TEST ORDERABLES F inal Result [facility] [address] [place] [address], [place] [phone] * ECG 12 lead (09/21/2024 4:33 PM BILLING AND INSURANCE COORDINATOR) 09/21/2024 4:33 PM BILLING AND INSURANCE COORDINATOR Narrative [facility] - 09/21/2024 9:50 PM BILLING AND INSURANCE COORDINATOR ?[place] [place] ? [address], [place] ? Test Date: ?2024-09-21 Pat Name: ? LEIA DILLON ? Department: ?? 41 ? Room: ? Gender: ? Female ? [place]: ?? : ?1945 ? Requested By: BONNIE ROSE Order Number: [id number] ? Reading MD: ?? Tony Hushion ? Measurements Intervals ?Ada ? Rate: ? 80 ? P: ?89 TX: ? 165 ?QRS: ?-11 QRSD: ? 134 ?T: ?-2 QT: ? 419 ? QTc: ?486 ? Interpretive Statements SINUS RHYTHM RIGHT BUNDLE BRANCH BLOCK [120+ ms QRS DURATION, UPRIGHT V1, 40+ ms S IN I/aVL/V4/V5/V6] MINIMAL VOLTAGE CRITERIA FOR LVH, CONSIDER NORMAL VARIANT [MEETS CRITERIA IN ONE OF: R(aVL), S(V1), R(V5), R(V5/V6)+S(V1)] No previous ECG available for comparison Other ischemic changes, not STEMI ING AND INSURANCE COORDINATOR Procedure Note Tony Tanner MD - 09/21/[address] [place] Test Date: 2024-09-21 Pat Name: LEIA DILLON Department: 41 Room: Gender: Female [place]: : 1945 Requested By: BONNIE ROSE Order Number: [id number] Shukri PEREZ: Tony Tanner Measurements Intervals Ada Rate: 80 P: 89 TX: 165 QRS: -11 QRSD: 134 T: -2 QT: 419 QTc: 486 Interpretive Statements SINUS RHYTHM RIGHT BUNDLE BRANCH BLOCK [120+ ms QRS DURATION, UPRIGHT V1, 40+ ms S IN I/aVL/V4/V5/V6] MINIMAL VOLTAGE CRITERIA FOR LVH, CONSIDER NORMAL VARIANT [MEETS CRITERIAIN ONE OF: R(aVL), S(V1), R(V5), R(V5/V6)+S(V1)] No previous ECG available for comparison Other ischemic changes, not STEMI ING AND INSURANCE COORDINATOR Bonnie Rose STEEL ERECTOR APPRENTICE ECG ORDERABLES Final Result [facility] * IRON SAT PANEL (IRON,IBC,%SAT) (09/21/2024 4:15 PM BILLING AND INSURANCE COORDINATOR) IRON 144 50.0 - 170.0 MCG/DL 09/21/2024 4:54 PM BILLING AND INSURANCE COORDINATOR [facility] IRON BINDING CAPACITY 329 250 - 450 MCG/DL 09/21/2024 4:54 PM BILLING AND INSURANCE COORDINATOR [facility] IRON SATURATION 44 20 - 55 % 4:54 PM BILLING AND INSURANCE COORDINATOR [facility] 09/21/2024 4:15 PM BILLING AND INSURANCE COORDINATOR Bonnie Rose STEEL ERECTOR APPRENTICE LABORATORY Final Result Performing Organization Address [facility] de Phone Number [facility] [address] [place] [address], [place] [phone] * (ABNORMAL) PROTIME/INR, VENOUS (09/21/2024 4:15 PM BILLING AND INSURANCE COORDINATOR) PROTIME 14.1(H) 10.2 - 12.9 SEC 09/21/2024 4:52 PM BILLING AND INSURANCE COORDINATOR [facility] INR 1.2 09/21/2024 4:52 PM BILLING AND INSURANCE COORDINATOR [facility] Comment: Recommended INR Therapeutic Goals: ??2.0-3.0 Routine Therapy ??2.5-3.5 Mechanical Prosthetic Valves (High Risk) 09/21/2024 4:15 PM BILLING AND INSURANCE COORDINATOR Bonnie Rose STEEL ERECTOR APPRENTICE LABORATORY Final Result Performing Organization Address City/[facility]/ZIP Co de Phone Number [facility] [address] [place] [address], [place] [phone] * (ABNORMAL) COMPREHENSIVE METABOLIC PANEL (09/21/2024 4:15 PM BILLING AND INSURANCE COORDINATOR) [facility] GLUCOSE 101(H) 70 - 99 MG/DL 09/21/2024 4:54 PM BILLING AND INSURANCE COORDINATOR [facility] BUN 29(H) 7 - 18 MG/DL 09/21/2024 4:54 PM [facility] CREATININE S/P/B 0.91 0.55 - 1.02 MG/DL 09/21/2024 4:54 PM [facility] SODIUM S/P/B 140 136 - 145 MMOL/L 09/21/2024 4:54 PM [facility] POTASSIUM S/P/B 3.8 3.5 - 5.1 MMOL/L 09/21/2024 4:54 PM [facility] CHLORIDE S/P/B 104 97 - 115 MMOL/L 09/21/2024 4:54 PM [facility] CO2 30.5 21 - 32 MMOL/L 09/21/2024 4:54 PM [facility] CALCIUM S/P/B 9.6 8.5 - 10.1 MG/DL 09/21/2024 4:54 PM [facility] BILIRUBIN TOTAL S/P/B 0.7 0.2 - 1.2 MG/DL 09/21/2024 4:54 PM [facility] Comment: THIS ASSAY IS NOT RECOMMENDED FOR PATIENTS UNDERGOING TREATMENT WITH ELTROMBOPAG DUE TO THE POTENTIAL FOR FALSELY ELEVATED RESULTS. TOTAL PROTEIN S/P/B 5.8(L) 6.4 - 8.2 G/DL 09/21/2024 4:54 PM [facility] ALBUMIN S/P/B 2.9(L) 3.4 - 5.0 G/DL 09/21/2024 4:54 PM BILLING AND INSURANCE COORDINATOR [facility] AST 39(H) 15 - 37 U/L 09/21/2024 4:54 PM BILLING AND INSURANCE COORDINATOR [facility] ALT 23 14 - 55 U/L 09/21/2024 4:54 PM [facility] ALKALINE PHOSPHATASE S/P/B 79 50 - 136 U/L 09/21/2024 4:54 PM BILLING AND INSURANCE COORDINATOR [facility] ANION GAP 5.5 2 - 10 MMOL/L 09/21/2024 4:54 PM [facility] BUN CREATININE RATIO 31.9(H) 6 - 26 09/21/2024 4:54 PM [facility] A/G RATIO 1.0 1.0 - 2.0 RATIO 09/21/2024 4:54 PM [facility] GFR ESTIMATE 65(L) >90 ML/MIN/1.7 3 M2 09/21/2024 4:54 PM [facility] Comment: NOTE: eGFR is not calculated for patients <18 years of age or gender unknown. This is an estimated GFR calculation using the new CKD EPI creatinine equation without race and so does not require a correction factor for race. This estimated GFR should not be used for calculating drug doses. 09/21/2024 4:15 PM BILLING AND INSURANCE COORDINATOR us Bonnie Rose NP LABORATORY Final Result [facility] [address] [place] [address], [place] [phone] * (ABNORMAL) CBC W/DIFF AUTOMATED (09/21/2024 4:15 PM BILLING AND INSURANCE COORDINATOR) WBC 2.96(L) 4.5 - 11.0 x10'3/uL 09/21/2024 4:34 PM BILLING AND INSURANCE COORDINATOR [facility] RBC 1.95(L) 4.20 - 5.40 x10'6/uL 09/21/2024 4:34 PM [facility] HGB 6.3(LL) 12.0 - 16.0 G/DL 09/21/2024 4:34 PM [facility] Comment: This result has been called to GIA MELO by [id number] on 09/21/2024 16:34:00, and has been read back. HCT 20.3(L) 38.0 - 48.0 % 09/21/2024 4:34 PM [facility] MCV 104.1(H) 81.0 - 99.0 FL 09/21/2024 4:34 PM [facility] MCH 32.3(H) 27.0 - 31.0 PG 09/21/2024 4:34 PM [facility] MCHC 31.0(L) 32.0 - 36.0 G/DL 09/21/2024 4:34 PM [facility] RDW 14.3 11.5 - 14.5 % 09/21/2024 4:34 PM [facility] PLT 113(L) 130 - 400 x10'3/uL 09/21/2024 4:34 PM [facility] MPV 10.9 9.3 - 12.2 FL 09/21/2024 4:34 PM [facility] DIFFERENTIAL TYPE AUTOMATED DIFFERENTIAL 09/21/2024 4:34 PM [facility] NEUTROPHILS % 61.2 % 09/21/2024 4:34 PM [facility] LYMPHOCYTES % 26.0 % 09/21/2024 4:34 PM [facility] MONOCYTES % 9.8 % 09/21/2024 4:34 PM [facility] EOSINOPHILS 2.7 % 09/21/2024 4:34 PM BILLING AND INSURANCE COORDINATOR [facility] BASOPHILS 0.3 % 09/21/2024 4:34 PM BILLING AND INSURANCE COORDINATOR [facility] IMMATURE GRANS % 0.0 % 09/21/19 4:34 PM BILLING AND INSURANCE COORDINATOR [facility] ABS. NEUTROPHILS 1.81 1.80 - 7.70 x10'3/uL 09/21/2024 4:34 PM BILLING AND INSURANCE COORDINATOR [facility] ABS. LYMPHOCYTES 0.77(L) 1.00 - 4.80 x10'3/uL 09/21/2024 4:34 PM BILLING AND INSURANCE COORDINATOR [facility] ABS. MONOCYTES 0.29 0.24 - 0.86 x10'3/uL 09/21/2024 4:34 PM BILLING AND INSURANCE COORDINATOR [facility] ABS. EOSINOPHILS 0.08 0.04 - 0.36 x10'3/uL 09/21/2024 4:34 PM BILLING AND INSURANCE COORDINATOR [facility] ABS. BASOPHILS 0.01 0.01 - 0.08 x10'3/uL 09/21/2024 4:34 PM BILLING AND INSURANCE COORDINATOR [facility] ABS. IMMATURE GRANULOCYTES 0.00 0.00 - 0.49 x10'3/uL 09/21/2024 4:34 PM [facility] 09/21/2024 4:15 PM BILLING AND INSURANCE COORDINATOR us Bonnie Rose NP LABORATORY Final Result [facility] [address] [place] [address], * TROPONIN, QUANT (09/21/2024 4:15 PM BILLING AND INSURANCE COORDINATOR) TROPONIN I HIGH SENSITIVITY 8 <54 ng/L 09/21/2024 4:54 PM BILLING AND INSURANCE COORDINATOR [facility] Comment: HIGH DOSES OF BIOTIN, TROPONIN-SPECIFIC AUTOANTIBODIES, AND ANTIBODY THERAPY CONTAINING HAMA MAY INTERFERE WITH THIS TEST RESULT. CORRELATION TO CLINICAL HISTORY AND PRESENTATION RECOMMENDED. 09/21/2024 4:15 PM BILLING AND INSURANCE COORDINATOR us Bonnie Rose STEEL ERECTOR APPRENTICE LABORATORY Final Result [facility] [address] [place] [address], * XR CHEST PORTABLE (09/21/2024 4:12 PM BILLING AND INSURANCE COORDINATOR) Anatomical Region Laterality Modality Chest Radiographic Nae ging 09/21/2024 4:14 PM BILLING AND INSURANCE COORDINATOR Impressions 09/21/2024 4:15 PM BILLING AND INSURANCE COORDINATOR =====IMPRESSION:===== No radiographic evidence of active chest disease. Ordered By: BONNIE ROSE Interpreted By: Benji Izquierdo MD, 09/21/2024 4:14 PM Narrative 09/21/2024 4:15 PM BILLING AND INSURANCE COORDINATOR [address] [address] Examination: Chest x-ray 1 view Exam date/time: [...] Procedure Note Benji Izquierdo MD - 09/21/2024 [address] [place], [place] [address] Examination: Chest x-ray 1 view Exam date/time: [...] MD, 09/21/2024 4:14 PM us Bonnie Rose STEEL ERECTOR APPRENTICE GENERAL IMAGING Final Result * HEMOGLOBIN, GLYCOSYLATED (07/29/2024) HGB A1C 5.2 % [facility] 07/29/2024 us Shivam Lombardo DO LABORATORY Final Re sult Performing Organization Address City/[facility]/ZIP Co de Phone Number [facility] [address] [place] [address], [place] * US ABD LIMITED (07/06/2024 11:28 AM BILLING AND INSURANCE COORDINATOR) Anatomical Region Laterality Modality Abdomen Ultrasound 07/08/2024 4:04 PM BILLING AND INSURANCE COORDINATOR Impressions 07/08/2024 4:10 PM BILLING AND INSURANCE COORDINATOR IMPRESSION: 1. Mild splenomegaly. 2. Liver length is similar to previous study. Ordered By: JORDI OLGUIN Interpreted By: Nick Acuna, 07/08/2024 4:04 PM Narrative 07/08/2024 4:10 PM BILLING AND INSURANCE COORDINATOR [facility] [place] [address] IMAGING STUDIES: ??US ABD LIMITED ?DATE: ??07/06/2024 [...] Procedure Note Nick Acuna MD - 07/08/[address] [address] IMAGING STUDIES: US ABD LIMITEDDATE: 07/06/2024 10:52 [...] SANTIAGO NON-REACT SANTIAGO 02/04/2024 7:22 PM CDT [facility] Comment:HBsAg NOT DETECTED. HEP B CORE IGM NON-REACT SANTIAGO NON-REACT SANTIAGO 02/04/2024 7:22 PM CDT [facility] Comment: IgM ANTI HBc NOT DETECTED. DOES NOT EXCLUDE THE POSSIBILITY OF EXPOSURE TO OR INFECTION WITH HBV. NO RETEST REQUIRED. HIGH DOSES OF BIOTIN MAY INTERFERE WITH THIS TEST RESULT. CORRELATION TO CLINICAL HISTORY AND PRESENTATION RECOMMENDED. HAV IGM NON-REACT SANTIAGO NON-REACT SANTIAGO 02/04/2024 7:22 PM CDT [facility] Comment: IgM ANTI HAV NOT DETECTED. DOES NOT EXCLUDE THE POSSIBILITY OF EXPOSURE TO OR INFECTION WITH HAV. LEVELS OF IgM ANTI HAV MAY BE BELOW THE CUTOFF IN EARLY INFECTION. HEPATITIS C AB NON-REACT SANTIAGO NON-REACT SANTIAGO 02/04/2024 7:22 PM CDT [facility] Comment: ANTIBODIES TO HCV NOT DETECTED. DOES NOT EXCLUDE THE POSSIBILITY OF EXPOSURE TO HCV. 02/04/2024 11:0 5 AM CDT Shivam Lombardo DO LABORATORY Final Re sult Performing Organization Address [facility]/ZIP Co de Phone Number [facility] [address] [place] [address], [place] [phone] * DIABETIC RETINOPATHY EXAM (NEGATIVE) (09/02/2023) [facility] Scanned SCANNING Final Resu lt Performing Organization Address [facility] Co de Phone Number [facility] ONBASE * (ABNORMAL) LIPID PANEL (08/08/2023 11:25 AM BILLING AND INSURANCE COORDINATOR) CHOLESTEROL 123 100 - 199 mg/dL [facility] TRIGLYCERIDES 123 0 - 149 mg/dL [facility] HDL 32(L) >39 mg/dL [facility] VLDL CALCULATION 22 5 - 40 mg/dL [facility] LDL (CALCULATED) 69 0 - 99 mg/dL [facility] 1 08/08/2023 11:2 5 AM BILLING AND INSURANCE COORDINATOR 08/08/2023 Narrative [facility] - 08/09/2023 9:11 AM BILLING AND INSURANCE COORDINATOR Performed at: ??01 - [facility] [address] ??[id number] Offset Press Operator Apprentice: Luciano Lawrence PhD, Phone: ??[phone] Shivam Lombardo DO LABORATORY Final Re sult Performing Organization Address [facility] Co de Phone Number [facility] [address] [place] [address] [facility] 1 * BONE DENSITY GENERIC (07/04/2022) Anatomical Region Laterality Modality Other 07/04/2022 [employer] Scanned SCANNING Final Resu lt from Last 3 Months or Most Recently Relevant to Health Maintenance Insurance MEDICARE AETNA Care Teams Trench Shovel Operator Relationship Specialty Start Date End Date Shivam Lombardo DO [address] [place] [phone] PCP - General FAMILY PRACTICE 05/29/21 Kimberly Vieira, RN [address] [facility] [address] [place] [phone] Registered Nurse CARE MANAGEMENT 03/23/24
--- OUTSIDE RECORDS SUMMARY | 2024-09-29 18:06 | XMS_ITS | Encounter Summary ---
Author Organization [employer] Care Team Providers Care Electric Milkers Installer Name Role Phone Shivam Lombardo Primary Care Provider + Trini Lazaro MD Unavailable oJrdi Olguin MD Unavailable [phone] Encounter Details Date Type Department Care Team [...] st Contact Info) Description 10/05/2024 1:35 PM REELING OPERATOR Lab [facility] [address] [phone] Lab, [facility] 10/05/2024 1:45 PM REELING OPERATOR Office Visit [facility] [address] [phone] Jordi Olguin MD [address] [place] [address] [address] [place] [address] 10/12/2024 11:00 AM REELING OPERATOR Lab [facility] [address] [address] Lab, [facility] 10/19/2024 11:00 AM REELING OPERATOR Lab [facility] [address] [address] Lab, [facility] 10/26/2024 12:45 AM REELING OPERATOR Lab [facility] [address] [address] Lab, [facility] 10/26/2024 1:00 PM REELING OPERATOR Office Visit [facility] [address] [phone] Jordi Olguin MD [address] [place] [address] documented as of this encounter Visit Diagnoses Not on filedocumented in this encounter Care Teams Electric Milkers Installer Relationship Specialty Start Date End Date Shivam Lombardo DO [address] [place] [phone] PCP - General Family Medicine 11/15/23 Trini Lazaro MD [address] [place] [address] Consulting Physician Oncology 11/15/23 Jordi Olguin MD [address] [place] [phone] Consulting Physician Oncology 05/11/24 documented as of this encounter
--- OUTSIDE RECORDS SUMMARY | 2024-09-29 18:06 | XMS_ITS | Patient Health Summary ---
Author Organization [facility] [employer] Address [address] [facility] [place] [address] Care Team Providers Care Health Companion Name Role Phone Khang Greer MD Primary Care Provider Note from [facility],non-owned Affiliates and Associated Physician Practices is amultiple site organization consisting of ambulatory clinics and hospital sitesin [place], [place], [place] and [place]. This disclosure is being madepursuant to the Care Everywhere program and may not contain all information available regarding this patient. Last updated 18.[facility] Allergies No known active allergies Medications * [...] 4.0 - 10.7 x10E9/L 01/26/2024 5:52 AM [facility] RBC Count 2.82(L) 3.90 - 5.20 x10E12/L 01/26/2024 5:52 AM [facility] Hemoglobin 8.9(L) 11.9 - 15.8 g/dL 01/26/2024 5:52 AM [facility] Hematocrit 27.2(L) 34.8 - 46.1 % 01/26/2024 5:52 AM [facility] MCV 96.5 80.0 - 98.0 fL 01/26/2024 5:52 AM [facility] MCH 31.6 26.7 - 33.6 pg 01/26/2024 5:52 AM [facility] MCHC 32.7 31.7 - 36.3 g/dL 01/26/2024 5:52 AM [facility] RDW-CV 16.3(H) 11.3 - 14.8 % 01/26/2024 5:52 AM [facility] Platelet Count 96(L) 150 - 420 x10E9/L 01/26/2024 5:52 AM [facility] MPV 11.8(H) 7.8 - 11.4 fL 01/26/2024 5:52 AM [facility] Blood BLOOD SPECIMEN / Unknown Lab Venipuncture / Unknown 01/26/2024 4:44 AM CDT 01/26/2024 5:11 AM CDT Juan Miguel Gonzalez MD LAB - HEMATOLOGY ORD ERABLES [facility] [address] [place] [address], [facility] [phone] * (ABNORMAL) BASIC METABOLIC PANEL (CALCIUM TOTAL) (01/26/2024 4:44 AM T) Only the most recent of3 resultswithin the time period is included. BUN 21 7 - 26 mg/dL 01/26/2024 5:32 AM [facility] Creatinine 0.88 0.56 - 0.96 mg/dL 01/26/2024 5:32 AM [facility] Sodium 140 136 - 145 mmol/L 01/26/2024 5:32 AM [facility] Potassium 4.1 3.5 - 4.5 mmol/L 01/26/2024 5:32 AM [facility] Chloride 107 98 - 107 mmol/L 01/26/2024 5:32 AM [facility] CO2 27 22 - 29 mmol/L 01/26/2024 5:32 AM [facility] Glucose 107 70 - 115 mg/dL 01/26/2024 5:32 AM [facility] Calcium 10.0 8.4 - 10.2 mg/dL 01/26/2024 5:32 AM [facility] Anion Gap 6 6 - 16 01/26/2024 5:32 AM [facility] BUN/Creatinine Ratio 24(H) 7 - 23 01/26/2024 5:32 AM [facility] Osmolality Calculated 293 275 - 295 mOsm/kg 01/26/2024 5:32 AM [facility] eGFR by CKD-EPI 67(L) >=90 mL/min/1.7 3 m2 01/26/2024 5:32 AM CDT [facility] Blood BLOOD SPECIMEN / Unknown Lab Venipuncture / Unknown 01/26/2024 4:44 AM CDT 01/26/2024 5:10 AM CDT Juan Miguel Gonzalez MD LAB - CHEMISTRY NAEEM PIZARRO Performing Organization Address [facility] Co de Phone Number [facility] [address] [place] [address], [facility] [phone] * EKG 12-LEAD (01/25/2024 4:33 PM CDT) Pathologist [facility] Ventricular Rate 74 BPM SL MUSE Atrial Rate 74 BPM [facility] MUSE P-R Interval 160 ms [facility] MUSE QRS Duration ms 122 ms [facility] MUSE Q-T Interval ms 390 ms [facility] MUSE QTC Calculation (Bezet) 432 ms [facility] MUSE Calculated R [place] -170 degrees SL MUSE Calculated T [place] -163 degrees [facility] MUSE Interpretation EKG NORMAL SINUS RHYTHM RIGHT BUNDLE BRANCH BLOCK T WAVE ABNORMALITY, CONSIDER INFERIOR ISCHEMIA ABNORMAL ECG NO PREVIOUS ECGS AVAILABLE Confirmed by ANYA RICKS MD ([id number]) on 01/26/2024 7:30:32 AM [facility] 01/25/2024 4:33 PM CDT 01/26/2024 7:30 AM CDT Azalia Goodson MD ECG ORDERABLES Performing Organization Address [facility] Co de Phone Number [facility] MUSE * CT HEAD WO CONTRAST (01/25/2024 [...] > Dictated by Juan Miguel Francisco DO (president & ceo [employer]) Elaine Wright MD have personally reviewed and interpreted this examination/study. > Interpreting Provider: Elaine Milton MD on 01/25/2024 2:23 PM Narrative 01/25/2024 2:23 PM CDT PROCEDURE: ??CT HEAD WO CONTRAST, DATE/TIME OF EXAM: ??01/25/2024 7:04 AM, LOCATION ??[facility] INDICATION: W19.XXXA: Fall, initial encounter ADDITIONAL [...] DATE/TIME OF EXAM: 01/25/2024 7:04 AM, LOCATION [facility] INDICATION: W19.XXXA: Fall, initial encounter ADDITIONAL [...] > Dictated by Juan Miguel Francisco DO (president & ceo [employer]) Elaine Wright MD have personally reviewed and [...] identified. > Dictated by Ricky Roach MD (Oxygen System Tester) I, Elaine Milton MD have personally reviewed and interpreted this examination/study. > Interpreting Provider: Elaine Milton MD on 01/24/2024 11:50 PM Narrative 01/24/2024 11:50 PM CDT PROCEDURE: ??CT HEAD WO CONTRAST, CT FACIAL BONES WO CONTRAST, DATE/TIME OF EXAM: ??01/24/2024 10:05 PM, LOCATION ??[facility] INDICATION: W19.XXXA: Fall, initial encounter EXAMINATION: [...] CONTRAST, DATE/TIMEOF EXAM: 01/24/2024 10:05 PM, LOCATION [facility] INDICATION: W19.XXXA: Fall, initial encounter EXAMINATION: [...] identified. > Dictated by Ricky Roach MD (Oxygen System Tester) IEaline MD have personally reviewed and interpretedthis examination/study. > Interpreting Provider: Elaine Milton MD on 01/24/2024 11:50 PM uJan Miguel Gonzalez MD CT ORDERABLES * BLOOD TYPE VERIFICATION (01/24/2024 5:37 PM CDT) ABO Rh A POS 01/24/2024 6:2 2 PM CDT [facility] BLOOD BANK LAB Blood Bank BLOOD SPECIMEN / Unknown Venipuncture / Unknown 01/24/2024 5:37 PM CDT 01/24/2024 5:46 PM CDT Juan Miguel Gonzalez MD LAB - BLOOD BANK ORD ERABLES [facility] BLOOD BANK LAB [address] [place] [address], [facility] [phone] * XR CHEST 1VW PORTABLE (01/24/2024 4:31 PM CDT) Anatomical Region Laterality Modality Chest Radiographic Nae ging 01/24/2024 4:31 PM CDT Narrative 01/25/2024 8:14 AM CDT PROCEDURE: ??XR CHEST 1VW PORTABLE, DATE/TIME OF EXAM: ??01/24/2024 4:31 PM, LOCATION ??[facility] INDICATION: W19.XXXA: Fall, initial encounter COMPARISON: [...] shoulders. Report dictated by Ricky Roach MD, (Oxygen System Tester). Rosas Wright MD have personally reviewed and interpreted this examination/study. > Interpreting Provider: Rosas Davenport MD on 01/25/2024 8:14 AM Procedure Note Rosas Davenport MD - 01/25/2024 PROCEDURE: XR CHEST 1VW PORTABLE, DATE/TIME OF EXAM: 01/24/2024 4:31PM, LOCATION [facility] INDICATION: W19.XXXA: Fall, initial encounter COMPARISON: [...] shoulders. Report dictated by Ricky Roach MD, (Oxygen System Tester). Rosas Wright MD have personally reviewed and [...] identified. Report dictated by Ricky Roach MD, (Oxygen System Tester). Rosas Wright MD have personally reviewed and interpreted this examination/study. > Interpreting Provider: Rosas Davenport MD on 01/25/2024 8:14 AM Narrative 01/25/2024 8:14 AM CDT PROCEDURE: ??XR PELVIS 1 OR 2VW, DATE/TIME OF EXAM: ??01/24/2024 4:31 PM, LOCATION ??[facility] INDICATION: W19.XXXA: Fall, initial encounter COMPARISON: [...] DATE/TIME OF EXAM: 01/24/2024 4:31 PM, LOCATION [facility] INDICATION: W19.XXXA: Fall, initial encounter COMPARISON: None. FINDINGS: No acute fracture is identified. The femoral heads appear well-seated within their respective acetabula. Degenerative changes of bilateral hip joints. The pubic symphysis is intact. The bones are mildly diffusely demineralized. The sacroiliac joints are normal. IMPRESSION: No acute fracture identified. Report dictated by Ricky Roach MD, (Oxygen System Tester). I, Rosas Davenport MD have personally reviewed and interpreted this examination/study. > Interpreting Provider: Rosas Davenport MD on 01/25/2024 8:14 AM Juan Miguel Gonzalez MD DIAGNOSTIC IMAGING O RDERABLES * TEG 6 GLOBAL HEMOSTASIS W/ LYSIS (01/24/2024 4:20 PM CDT) Citrated Kaolin R (Reaction Time) 5.1 4.6 - 9.1 min 01/24/2024 5:31 PM CDT [facility] Citrated Kaolin LY30 (Lysis) 0.1 0.0 - 2.6 % 01/24/2024 5:31 PM CDT [facility] Citrated Functional Fibrinogen MA (Max Amplitude) 27.4 15.0 - 32.0 mm 01/24/2024 5:31 PM CDT [facility] Citrated RapidTEG MA (Max Amplitude) 64.7 52.0 - 70.0 mm 01/24/2024 5:31 PM CDT [facility] Blood BLOOD SPECIMEN / Unknown Venipuncture / Unknown 01/24/2024 4:20 PM CDT 01/24/2024 4:34 PM CDT Juan Miguel Gonzalez MD LAB - HEMATOLOGY ORD ERABLES [facility] [address] [place] [address], [facility] [phone] * TEG 6S PLATELET MAPPING (01/24/2024 4:20 PM CDT) TEGPLM (Max Amplitude) Koalin 64.7 53.0 - 68.0 mm 01/24/2024 5:31 PM CDT [facility] TEGPLM (Max Amplitude) ACTF 19.0 2.0 - 19.0 mm 01/24/2024 5:31 PM CDT [facility] TEGPLM (Max Amplitude) ADP 61.6 45.0 - 69.0 mm 01/24/2024 5:31 PM CDT [facility] TEGPLM (Max Amplitude) AA 61.6 51.0 - 71.0 mm 01/24/2024 5:31 PM CDT [facility] TEGPLM %Inhibition ADP 6.8 0.0 - 17.0 % 01/24/2024 5:31 PM CDT [facility] TEGPLM %Inhibition AA 6.8 0.0 - 11.0 % 01/24/2024 5:31 PM CDT [facility] TEGPLM %Aggregation ADP 93.2 83.0 - 100.0 % 01/24/2024 5:31 PM T [facility] TEGPLM % Aggregation AA 93.2 89.0 - 100.0 % 01/24/2024 5:31 PM CDT [facility] Blood BLOOD SPECIMEN / Unknown Venipuncture / Unknown 01/24/2024 4:20 PM CDT 01/24/2024 4:34 PM CDT Juan Miguel Gonzalez MD LAB - HEMATOLOGY ORD ERABLES [address] [address], [facility] [phone] * PTT [facility] (01/24/2024 4:20 PM CDT) APTT 36.1 23.0 - 38.4 Seconds 01/24/2024 5:02 PM CDT [facility] Comment:Suggested therapeuti c range for full dose I.V. unfractionated heparin therapy for venous thromboembolism is 71 to 109 seconds. Blood BLOOD SPECIMEN / Unknown Venipuncture / Unknown 01/24/2024 4:20 PM CDT 01/24/2024 4:26 PM CDT Juan Miguel Gonzalez MD LAB - COAGULATION OR DERABLES Performing Organization Address [facility] Co de Phone Number [address] [address], [facility] [phone] * (ABNORMAL) PT-INR [facility] (01/24/2024 4:20 PM CDT) PT 16.3(H) 12.1 - 14.8 Seconds 01/24/2024 5:02 PM CDT [facility] INR 1.4 See Comment 01/24/2024 5:02 PM CDT [facility] Comment:The suggested therap eutic range for standard coumadin (warfarin) therapy is an INR of 2.0-3.0. For high-risk patients (Mechanical Mitral Valve Prosthesis, etc.), the suggested prophylactic therapeutic range is an INR of 2.5-3.5. Blood BLOOD SPECIMEN / Unknown Venipuncture / Unknown 01/24/2024 4:20 PM CDT 01/24/2024 4:26 PM CDT Juan Miguel Gonzalez MD LAB - COAGULATION OR DERABLES Performing Organization Address [facility] Co de Phone Number [address] [address], [place] [phone] * TYPE + SCREEN PANEL (01/24/2024 4:20 PM CDT) [facility] Antibody Screen NEG 5:15 PM CDT [facility] BLOOD BANK LAB ABO Rh A POS 01/24/2024 5:15 PM CDT [facility] BLOOD BANK LAB Blood Bank BLOOD SPECIMEN / Unknown Venipuncture / Unknown 01/24/2024 4:20 PM CDT 01/24/2024 4:29 PM CDT Juan Miguel Gonzalez MD LAB - BLOOD BANK ORD ERABLES [facility] BLOOD BANK LAB [address] [place] [address], [facility] [phone] * (ABNORMAL) CBC W AUTO DIFFERENTIAL (01/24/2024 4:20 PM CDT) [facility] WBC 3.2(L) 4.0 - 10.7 x10E9/L 01/24/2024 4:41 PM [facility] RBC Count 2.88(L) 3.90 - 5.20 x10E12/L 01/24/2024 4:41 PM [facility] Hemoglobin 9.0(L) 11.9 - 15.8 g/dL 01/24/2024 4:41 PM [facility] Hematocrit 27.3(L) 34.8 - 46.1 % 01/24/2024 4:41 PM [facility] MCV 94.8 80.0 - 98.0 fL 01/24/2024 4:41 PM [facility] MCH 31.3 26.7 - 33.6 pg 01/24/2024 4:41 PM [facility] MCHC 33.0 31.7 - 36.3 g/dL 01/24/2024 4:41 PM [facility] RDW-CV 16.2(H) 11.3 - 14.8 % 01/24/2024 4:41 PM [facility] Platelet Count 103(L) 150 - 420 x10E9/L 01/24/2024 4:41 PM [facility] MPV 11.2 7.8 - 11.4 fL 01/24/2024 4:41 PM [facility] Neutrophil % 64.0 41.0 - 74.0 % 01/24/2024 4:41 PM [facility] Lymphocyte % 25.6 17.0 - 47.0 % 01/24/2024 4:41 PM [facility] Monocyte % 7.6 3.0 - 11.0 % 01/24/2024 4:41 PM [facility] Eosinophil % 2.2 0.0 - 7.0 % 01/24/2024 4:41 PM [facility] Basophil % 0.3 0.0 - 1.6 % 01/24/2024 4:41 PM [facility] Immature Granulocytes % 0.3 0.0 - 1.0 % 01/24/2024 4:41 PM [facility] Neutrophil Absolute 2.03 1.60 - 7.50 x10E9/L 01/24/2024 4:41 PM [facility] Lymphocyte Absolute 0.81(L) 1.00 - 4.40 x10E9/L 01/24/2024 4:41 PM [facility] Monocyte Absolute 0.24 0.15 - 1.00 x10E9/L 01/24/2024 4:41 PM [facility] Eosinophil Absolute 0.07 0.00 - 0.60 x10E9/L 01/24/2024 4:41 PM [facility] Basophil Absolute 0.01 0.00 - 0.13 x10E9/L 01/24/2024 4:41 PM [facility] Blood BLOOD SPECIMEN / Unknown Venipuncture / Unknown 01/24/2024 4:20 PM CDT 01/24/2024 4:28 PM CDT Juan Miguel Gonzalez MD LAB - HEMATOLOGY ORD ERABLES [facility] [address] [place] [address], [facility] [phone] * (ABNORMAL) PHOSPHORUS BLOOD (01/24/2024 4:20 PM CDT) Phosphorus 2.4(L) 2.9 - 5.1 mg/dL 01/24/2024 5:06 PM CDT [facility] Blood BLOOD SPECIMEN / Unknown Venipuncture / Unknown 01/24/2024 4:20 PM CDT 01/24/2024 4:53 PM CDT Juan Miguel Gonzalez MD LAB - CHEMISTRY NAEEM PIZARRO [address] [address], [facility] [phone] * MAGNESIUM BLOOD (01/24/2024 4:20 PM CDT) Magnesium 2.2 1.6 - 2.6 mg/dL 01/24/2024 5:06 PM CDT [facility] Blood BLOOD SPECIMEN / Unknown Venipuncture / Unknown 01/24/2024 4:20 PM CDT 01/24/2024 4:53 PM CDT Juan Miguel Gonzalez MD LAB - CHEMISTRY NAEEM PIZARRO [address] [address], [facility] [phone] * ALCOHOL ETHYL BLOOD (01/24/2024 4:20 PM CDT) Ethanol (mg/dL) <10 <10 mg/dL 5:06 PM CDT [facility] Ethanol Calculated (g/dL) <0.010 <=0.010 g/dL 01/24/2024 5:06 PM CDT [facility] Blood BLOOD SPECIMEN / Unknown Venipuncture / Unknown 01/24/2024 4:20 PM CDT 01/24/2024 4:53 PM CDT Narrative [facility] - 01/24/2024 5:06 PM CDT Ethanol Interp <10: None Detected. Depression of PET CARE ATTENDANT: >100 mg/dl Potentially Critical: >250 mg/dl Potentially [...] - CHEMISTRY NAEEM PIZARRO Performing Organization Address City/[facility]/ZIP Co de Phone Number [facility] [address] [place] [address], [facility] [phone] * PATHOLOGY/GENETICS HISTORICAL-ONBASE (02/16/2014) Only the most recent of3 resultswithin the time period is included. 02/16/2014 Narrative [facility] - 02/23/2014 7:41 AM CDT Lisa Parra MD LAB - CHEMISTRY NAEEM PIZARRO Performing Organization Address [facility] [place] [address], [facility] * PAP IG RFLX HPV ASCU (07/21/2013) Only the most recent of4 resultswithin the time period is included. Endocervical 07/21/2013 Narrative [facility] - 07/29/2013 7:49 AM INSURANCE AGENCY SALES MANAGER Lisa Parra MD LAB - PATHOLOGY/CYTO LOGY ORDERABLES Performing Organization Address [facility] [place] [address], [facility] * LAB HISTORICAL RESULTS-ONBASE (03/09/2011) Only the most recent of3 resultswithin the time period is included. 03/09/2011 Historical Provider LAB - CHEMISTRY O RDERABLES Performing Organization Address City/[facility]/ZIP Co de Phone Number [facility] Care Teams Health Companion Relationship Specialty Start Date End Date Khang Greer MD [address] [place] [address] PCP - General 10/31/16
--- OUTSIDE RECORDS SUMMARY | 2024-09-29 18:06 | XMS_ITS | Encounter Summary ---
Author Organization [facility] Address [address] [place] [address] Phone Care Team Providers Care Meat Service Team Member Name Role Phone Shivam Lombardo Primary Care Provider + Trini Lazaro MD Unavailable Jordi Olguin MD Unavailable [phone] Reason for Visit * Reason Onset Date Comments Canopy Call / Weekly CBC and EPO 09/28/2024 Encounter Details Date Type Department Care Team (Late st Contact Info) Description 09/28/2024 Telephone [facility] [address] [address] Jordi Olguin MD [address] [facility] [place] [address] [address] Canopy Call / Weekly CBC [...] today for weekly CBC and possible EPO. CAL ADMINISTRATIVE ASSISTANT documented in this encounter Plan of Treatment Upcoming Encounters Date Type Department Care Team (Late st Contact Info) Description 10/05/2024 1:35 PM MEDICAL ADMINISTRATIVE ASSISTANT Lab [facility] [address] [address] Lab, [facility] 10/05/2024 1:45 PM MEDICAL ADMINISTRATIVE ASSISTANT Office Visit [facility] [address] [phone] Jordi Olguin MD [address] [place] [address] 10/12/2024 11:00 AM MEDICAL ADMINISTRATIVE ASSISTANT Lab [facility] [address] [address] Lab, [facility] 10/19/2024 11:00 AM MEDICAL ADMINISTRATIVE ASSISTANT Lab [facility] [address] [address] Lab, [facility] 10/26/2024 12:45 AM MEDICAL ADMINISTRATIVE ASSISTANT Lab [facility] [address] [address] Lab, [facility] 10/26/2024 1:00 PM MEDICAL ADMINISTRATIVE ASSISTANT Office Visit [facility] [address] [phone] Jordi Olguin MD [address] [place] [phone] documented as of this encounter Visit Diagnoses Not on filedocumented in this encounter Care Teams Meat Service Team Member Relationship Specialty Start Date End Date Shivam Lombardo DO [address] [place] [address] PCP - General Family Medicine 11/15/23 Trini Lazaro MD [address] [place] [address] Consulting Physician Oncology 11/15/23 Jordi Olguin MD [address] [place] [phone] Consulting Physician Oncology 05/11/24 documented as of this encounter
--- OUTSIDE RECORDS SUMMARY | 2024-09-29 18:06 | XMS_ITS | Referral Summary ---
Author Organization [facility] [employer] Address [address] [place] [address] Care Team Providers Care Glass Ribbon Machine Operator Assistant Name Role Phone Khang Greer MD Primary Care Provider Source Comments [facility]ili[facility] and Associated Physician Practices is amultiple site organization consisting of ambulatory clinics and hospital sitesin [place], [place], [place] and [place]. This disclosure is being madepursuant to the Care Everywhere program and may not contain all information available regarding this patient. Last updated 18.[facility] [employer] Allergies No known active allergies Medications * [...] Visit [facility] [address] [place] [id number] Chad Reza MD [facility] [place] [address] Advance Directives * Full Code (Latest Code Status on File) Date Activated Date Inactivated Comments 01/25/2024 2:29 AM 01/26/2024 4:42 PM Care Teams Glass Ribbon Machine Operator Assistant Relationship Specialty Start Date End Date Khang Greer MD [address] [place] [address] PCP - General 10/31/16
--- OUTSIDE RECORDS SUMMARY | 2024-09-29 18:06 | XMS_ITS | Encounter Summary ---
Author Organization [facility] Address [address] [place] [address] Phone Care Team Providers Care Food And Beverage Director Name Role Phone Shivam Lombardo Primary Care Provider + Trini Lazaro MD Unavailable Jordi Olguin MD Unavailable [phone] Encounter Details Date Type Department Care Team (Late st Contact Info) Description 09/28/2024 Telephone [facility] [address] [address] Jordi Olguin MD [address] [address] Social History Tobacco Use Types [...] Blood transfusion orders placed. Patient discharged to [facility] after injection to receive transfusion. Orders faxed to [facility] inventory clerk. Copy provided to patient prior to discharge. MAKER MACHINE * Telephone Encounter - Keerthi Briones RN - 09/28/2024 11:25 AM CST Critical from lab Hgb 6.4 Hct 21.4 Please advise MAKER MACHINE documented in this encounter Plan of Treatment Upcoming Encounters Date Type Department Care Team (Late st Contact Info) Description 10/05/2024 1:35 PM PIE MAKER MACHINE Lab [facility] [address] [address] Lab, [facility] 10/05/2024 1:45 PM PIE MAKER MACHINE Office Visit [facility] [address] [address] Jordi Olguin MD [address] [place], [place] [id number] 10/12/2024 11:00 AM PIE MAKER MACHINE Lab [facility] [address] [address] Lab, [facility] 10/19/2024 11:00 AM PIE MAKER MACHINE Lab [facility] [address] [address] Lab, [facility] 10/26/2024 12:45 AM PIE MAKER MACHINE Lab [facility] [address] [address] Lab, [facility] 10/26/2024 1:00 PM PIE MAKER MACHINE Office Visit [facility] [address] [address] Jordi Olguin MD [address] [place], [place] [address] documented as of this encounter Visit Diagnoses Not on filedocumented in this encounter Care Teams Food And Beverage Director Relationship Specialty Start Date End Date Shivam Lombardo DO [address] [place] [address] PCP - General Family Medicine 11/15/23 Trini Lazaro MD [address] [place] [address] Consulting Physician Oncology 11/15/23 Jordi Olguin MD [address] [place] [address] Consulting Physician Oncology 05/11/24 documented as of this encounter
--- OUTSIDE RECORDS SUMMARY | 2024-09-29 18:06 | XMS_ITS | Encounter Summary ---
Author Organization [facility] Address [address] [place] [address] Phone Care Team Providers Care Mortgage Field Inspector Name Role Phone Shivam Lombardo Lulu RICO Primary Care Provider + Trini Lazaro MD Unavailable Jordi Olguin MD Unavailable [phone] Reason for Visit * Episode Based Medications (Routine) - Authorized Specialty Diagnoses / Procedures Referred By Contac t Referred To Contact Diagnoses MDS (myelodysplastic syndrome), low grade (HCC) Procedures EPOGEN 1000 UNITS NON ESRD INJ Jordi Olguin MD [address] [address] Phone: tel: fax: [facility] [address] [address] Phone: tel: fax: Referral ID Status Reason Start Date Expiration Date V isits Requested Visits Authorized [id number] Authorized 06/22/2024 08/25/2027 1 1 Encounter Details Date Type Department Care Team (Late st Contact Info) Description 09/28/2024 11:00 AM HAND TENNIS BALL COVERER Lab [facility] [address] [address] Nurse, Мария [facility] MDS (myelodysplastic syndrome), low grade (HCC) (Primary [...] arrival to clinic. Patient discharged ambulatory unaccompanied. TENNIS BALL COVERER documented in this encounter Plan of Treatment Upcoming Encounters Date Type Department Care Team (Late st Contact Info) Description 10/05/2024 1:35 PM HAND TENNIS BALL COVERER Lab [facility] [address] [address] Lab, [facility] 10/05/2024 1:45 PM HAND TENNIS BALL COVERER Office Visit [facility] [address] [phone] Jordi Olguin MD [address] [place] [address] 10/12/2024 11:00 AM HAND TENNIS BALL COVERER Lab [facility] [address] [address] Lab, [facility] 10/19/2024 11:00 AM HAND TENNIS BALL COVERER Lab [facility] [address] [phone] Lab, [facility] 10/26/2024 12:45 AM HAND TENNIS BALL COVERER Lab [facility] [address] [address] Lab, [facility] 10/26/2024 1:00 PM HAND TENNIS BALL COVERER Office Visit [facility] [place] [address] [place] [address] Jordi Olguin MD [address] [place] [address] Scheduled Orders Name Type Priority Associated Diagnoses [...] (CBC) WITH DIFF Routine 09/28/2024 11:02 AM HAND TENNIS BALL COVERER Pancytopenia (HCC) MDS (myelodysplastic syndrome), low grade (HCC) documented in this encounter Results * (ABNORMAL) COMPLETE BLOOD COUNT (CBC) WITH DIFF (09/28/2024 11:02 AM HAND TENNIS BALL COVERER) WBC 2.6(L) 4.0 - 10.0 10*3/uL CANCER LINING MACHINE TENDER [facility] HGB 6.4(LL) 11.2 - 15.7 g/dL CANCER LINING MACHINE TENDER [facility] Comment: Critical Result reported to Keerthi Briones on 09/28/2024 11:24 by ? Nathanael Hansen. Results were read back to caller. HCT 21.4(L) 34.1 - 44.9 % CANCER LINING MACHINE TENDER [facility] PLT 93(L) 163 - 369 10*3/uL CANCER LINING MACHINE TENDER [facility] MPV 11.0 9.4 - 12.4 fL CANCER LINING MACHINE TENDER [facility] RBC 2.16(L) 3.93 - 5.22 10*6/uL CANCER LINING MACHINE TENDER [facility] MCV 99(H) 79 - 95 fL CANCER LINING MACHINE TENDER [facility] MCH 29.6 25.6 - 32.2 pg CANCER LINING MACHINE TENDER [facility] MCHC 29.9(L) 32.2 - 36.5 g/dL CANCER LINING MACHINE TENDER [facility] RDW 14.7(H) 11.6 - 14.4 % CANCER LINING MACHINE TENDER [facility] Absolute Neutrophil Count 1,415 cells/uL [facility] CENT ER [facility] Absolute Seg Count 1,415(L) 1,440 - 6,600 cells/uL CANCER LINING MACHINE TENDER [facility] Absolute Lymph Count 996 760 - 4,000 cells/uL CANCER LINING MACHINE TENDER [facility] Absolute Wells Count 210 160 - 1,200 cells/uL CANCER LINING MACHINE TENDER [facility] Segmented Neutrophils 54 36 - 66 % CANCER LINING MACHINE TENDER [facility] Lymphocytes 38 19 - 40 % [facility] C ENTER [facility] Monocytes 8 4 - 12 % [facility]CER CODY TER [facility] WBC Estimate Low CANCER LINING MACHINE TENDER [facility] Platelet Estimate [facility] LINING MACHINE TENDER [facility] RBC Morphology Abnormal [facility] Macrocytosis 1+ CANCER LINING MACHINE TENDER [facility] Blood 09/28/2024 11:0 2 AM HAND TENNIS BALL COVERER Narrative CANCER LINING MACHINE TENDER [facility] - 09/28/2024 1:24 PM HAND TENNIS BALL COVERER Release to patient->Immediate us Renetta Urbina APRN, RESTAURANT TEAM MEMBER HEMATOLOGY ORDERABLES Final Result CANCER LINING MACHINE TENDER [facility] [address] [place] [address], documented in this encounter Visit Diagnoses Diagnosis [...] low grade (HCC) Given 09/28/2024 12:00 PM HAND TENNIS BALL COVERER 40,000 Units Right Abdomen documented in this encounter Care Teams Mortgage Field Inspector Relationship Specialty Start Date End Date Shivam Lombardo DO [address] [place] [address] PCP - General Family Medicine 11/15/23 Trini Lazaro MD [address] [place] [address] Consulting Physician Oncology 11/15/23 Jordi Olguin MD [address] [place] [phone] Consulting Physician Oncology 05/11/24 documented as of this encounter
--- OUTSIDE RECORDS SUMMARY | 2024-09-29 18:06 | XMS_ITS | Encounter Summary ---
Author Organization [facility] Address [address] [place] [address] Phone Care Team Providers Care Director Of Real Estate Name Role Phone Shivam Lombardo Primary Care Provider + Trini Lazaro MD Unavailable Jordi Olguin MD Unavailable [phone] Reason for Visit * Reason Onset Date Comments Canopy Call / Er visit 09/29/2024 Encounter Details Date Type Department Care Team (Late st Contact Info) Description 09/29/2024 Telephone [facility] [address] [address] Jordi Olguin MD [address] [facility] [address] [address] Canopy Call / Er visit Social History Tobacco Use Types Packs/Day Years [...] Telephone Encounter - Corrie Thornton RN - 09/29/2024 3:22 PM CST recd call from daughter in law (not shown on auth) stated pt feel and is in the ER. NotesLVM to return call to clinic. Per Care everywhere patient in CDU at [facility] TATION OPERATOR HELPER documented in this encounter Plan of Treatment Upcoming Encounters Date Type Department Care Team (Late st Contact Info) Description 10/05/2024 1:35 PM SUBSTATION OPERATOR HELPER Lab [facility] [address] [phone] Lab, [facility] 10/05/2024 1:45 PM SUBSTATION OPERATOR HELPER Office Visit [facility] [address] [phone] Jordi Olguin MD [address] [place], [place] [phone] 10/12/2024 11:00 AM SUBSTATION OPERATOR HELPER Lab [facility] [address] [phone] Lab, [facility] 10/19/2024 11:00 AM SUBSTATION OPERATOR HELPER Lab [facility] [address] [phone] Lab, [facility] 10/26/2024 12:45 AM SUBSTATION OPERATOR HELPER Lab [facility] [address] [phone] Lab, [facility] 10/26/2024 1:00 PM SUBSTATION OPERATOR HELPER Office Visit [facility] [address] [phone] Jordi Olguin MD [address] [place], [place] [phone] documented as of this encounter Visit Diagnoses Not on filedocumented in this encounter Care Teams Director Of Real Estate Relationship Specialty Start Date End Date Shivam Lombardo DO [address] [place] [phone] PCP - General Family Medicine 11/15/23 Trini Lazaro MD [address] [facility] [place] [address] Consulting Physician Oncology 11/15/23 Jordi Olguin MD [address] [facility] [place] [address] Consulting Physician Oncology 05/11/24 documented as of this encounter
--- OUTSIDE RECORDS SUMMARY | 2024-09-29 18:06 | XMS_ITS | Clinical Summary ---
Author Organization [facility] Address [address] [place] [address] Care Team Providers Care Cd Storage And Materials Make Up Helper Name Role Phone Khang Greer MD Primary Care Provider Source Comments [facility] Affiliates and Associated Physician Practices is amultiple site organization consisting of ambulatory clinics and hospital sitesin [place], [place], [place] and [place]. This disclosure is being madepursuant to the Care Everywhere program and may not contain all information available regarding this patient. Last updated 18.[facility] Allergies No known active allergies Medications * [...] Visit [facility] [address] [facility], [place] [phone] Chad Reza MD [facility] [place] [address] Health Maintenance Due Date Last Done Comments [...] 2:29 AM 01/26/2024 4:42 PM Care Teams Cd Storage And Materials Make Up Helper Relationship Specialty Start Date End Date Khang Greer MD [address] [place] [address] PCP - General 10/31/16
--- OUTSIDE RECORDS SUMMARY | 2024-09-29 18:06 | XMS_ITS | Encounter Summary ---
Author Organization [facility] Address [address] [place] [address] Care Team Providers Care Health Type Technician Name Role Phone Shivam Lombardo Lulu RICO Primary Care Provider + Kimberly Vieira RN Unavailable [phone] Encounter Details Date Type Department Care Team [...] medical appointments or from getting medications? No 0801/2024 In the past 12 months, has l ack of transportation kept you from meetings, work, or from getting things needed for daily living? No 03/31/2024 Comments No Sex and Gender Information Value Date Recorded Sex Assigned at Female 07/29/2024 1:13 PM COTTON JAMMER Legal Sex Female 8:19 PM CDT Gender Identity Female 09/04/2021 4:46 PM COTTON JAMMER Sexual Orientation Not on file Occupation Industry [...] the below: Lifestyle On track(2024 3:18 PM COTTON JAMMER) Kimberly Dupree RN Note: .1) Patient will [...] the below: Lifestyle On track(2024 3:18 PM COTTON JAMMER) Kimberly Dupree RN Note: 1) Patient will [...] the below: Lifestyle On track(2024 3:18 PM COTTON JAMMER) Kimberly Dupree RN Note: .1) patient will [...] on filedocumented in this encounter Care Teams Health Type Technician Relationship Specialty Start Date End Date Shivam Lombardo DO [address] [place] [address] PCP - General FAMILY PRACTICE 05/29/21 Kimberly Vieira, RN [address] [facility] [address] [place] [address] Registered Nurse CARE MANAGEMENT 03/23/24 documented as of this encounter
--- OUTSIDE RECORDS SUMMARY | 2024-09-29 18:06 | XMS_ITS | Encounter Summary ---
Author Organization [facility] Address [address] [place] [address] Care Team Providers Care Nurse First Assist Name Role Phone Shivam Lombardo DO Primary Care Provider + Kimberly Vieira RN Unavailable [phone] Encounter Details Date Type Department Care Team (Late st Contact Info) Description 02/20/2023 [employer] Message [facility] [address] [place] [address] [employer], [facility] Provider Air Quality Message Social History Tobacco Use Types Packs/Day Years Used Date Smoking Tobacco: Never Smokeless Tobacco: Never Alcohol Use Standard Drinks/Week Comments Never 0 (1 standard drink = 0.6 oz pur e alcohol) PHQ-2 Answer Date Recorded Patient Health Questionnaire-2 Score 0 10/15/2022 Comments No Sex and Gender Information Value Date Recorded Sex Assigned at Female 07/29/2024 1:13 PM STRAPPER Legal Sex Female 8:19 PM CDT Gender Identity Female 09/04/2021 4:46 PM STRAPPER Sexual Orientation Not on file Occupation Industry Job Start Date Job End Date Not on file Not on file Not on file Not on file documented as of this encounter Plan of Treatment Not on file documented as of this encounter Visit Diagnoses Not on filedocumented in this encounter Care Teams Nurse First Assist Relationship Specialty Start Date End Date Shivam Lombardo DO [address] [place] [address] PCP - General FAMILY PRACTICE 05/29/21 Kimberly Vieira, RN [address] [facility] [address] [place] [address] Registered Nurse CARE MANAGEMENT 03/23/24 documented as of this encounter
--- OUTSIDE RECORDS SUMMARY | 2024-09-29 18:06 | XMS_ITS | Encounter Summary ---
Author Organization [facility] Address [address] [place] [address] Care Team Providers Care Oil Heat Technician Name Role Phone Grupo Shivam Lawson DO Primary Care Provider + Kimberly Vieira RN Unavailable [phone] Encounter Details Date Type Department Care Team (Latest Contact Info) Description 09/28/2024 12:50 PM THREAD TRIMMER - 09/28/2024 5:05 PM THREAD TRIMMER Hospital Encounter [facility] [place] [address] Jordi Olguin MD [facility] [address] Discharge Disposition: Home or Self Care (Routine [...] Sex Assigned at Female 07/29/2024 1:13 PM THREAD TRIMMER Legal Sex Female 8:19 PM CDT Gender Identity Female 09/04/2021 4:46 PM THREAD TRIMMER Sexual Orientation Not on file Occupation Industry Job Start Date Job End Date Not on file Not on file Not on file Not on file documented as of this encounter Last Filed Vital Signs Vital Sign Reading Time Taken Comments Blood Pressure 123/75 09/28/2024 4:46 PM THREAD TRIMMER Pulse 71 09/28/2024 4:46 PM THREAD TRIMMER Temperature 36.4 ??C (97.6 ??F) 09/28/2024 4:46 PM CS T Respiratory Rate 17 09/28/2024 4:46 PM THREAD TRIMMER Oxygen Saturation 99% 09/28/2024 4:46 PM THREAD TRIMMER Inhaled Oxygen Concentration - - Weight - - Height - - Body Mass Index - - documented in this encounter Medications at Time of Discharge acetaminophen (TYLENOL) 325 MG tablet Take 2 tablets (650 mg total) by mouth every 6 (six) hours as needed. 01/26/2024 Blood Glucose Monitoring Suppl ([employer]dimensional [employer] logo TOUCH ULTRA 2) w/Device KitIndications:Typ e 2 diabetes mellitus without complication, without long-term current use of insulin ([facility]) Check blood sugar once daily in AM [...] complication, without long-term current use of insulin ([facility]) take 1 tablet every day 90 tablet 3 11/11/2023 Glucose Blood test stripIndications:T ype 2 diabetes mellitus without complication, without long-term current use of insulin ([facility]) Check blood sugar once daily in AM when fasting 100 strip 11 05/30/2022 Lancets (City[employer]dimensional network logoTOUCH ULTRASOFT) lancetsIndications :Type 2 diabetes mellitus without complication, without long-term current use of insulin ([facility]) Check blood sugar once daily in AM when fasting 1 each 11 05/30/2022 lisinopril (PRINIVIL) 20 MG tabletIndications: Primary [...] MCG/ACT inhalerIndications :Mild intermittent asthma without complication ([facility]) Inhale 2 puffs into the lungs every [...] gait. All belongings sent home with pt. AD TRIMMER documented in this encounter Plan of Treatment Not on file documented as of this encounter Goals Goal Patient Goal Type Associated Problems Recent Progress Patient-Stated? Author Establish Plan for Symptom Monitoring for anemia aeb the below: Lifestyle On track(2024 3:18 PM THREAD TRIMMER) No Kimberly Vieira RN Note: .1) Patient [...] the below: Lifestyle On track(2024 3:18 PM THREAD TRIMMER) Kimberly Dupree RN Note: 1) Patient will [...] the below: Lifestyle On track(2024 3:18 PM THREAD TRIMMER) Kimberly Dupree RN Note: .1) patient will [...] RED BLOOD CELLS Routine 09/28/2024 2:45 PM THREAD TRIMMER TYPE & SCREEN Routine 09/28/2024 1:15 PM THREAD TRIMMER MDS (myelodysplastic syndrome), low grade (CMS/HCC HHS/HCC) documented in this encounter Results * TRANSFUSE RED BLOOD CELLS (09/28/2024 4:46 PM THREAD TRIMMER) Result Ryan Olguin MD NURSING TREATMENT ORDERABLES - BLOOD ADMIN Final Result * TRANSFUSE RED BLOOD CELLS, 1 Units (09/28/2024 4:46 PM THREAD TRIMMER) us Jordi Olguin MD NURSING TREATMENT ORDERABLES - BLOOD ADMIN Final Result * TYPE & SCREEN (09/28/2024 1:15 PM THREAD TRIMMER) UNITS ORDERED 1 09/28/2024 2:12 PM THREAD TRIMMER [facility] ABO/RH A POSITIVE 09/28/2024 2:12 PM THREAD TRIMMER [facility] ANTIBODY SCREEN NEGATIVE 2:12 PM THREAD TRIMMER [facility] SAMPLE EXPIRATION 10/01/2024,2359 09/28/2024 2:12 PM THREAD TRIMMER [facility] BLOOD UNIT NUMBER [id number] 09/28/2024 2:12 PM [facility] PRODUCT: PC LEUKOPOOR 09/28/2024 2:12 PM THREAD TRIMMER [facility] UNIT DIVISION 00 09/28/2024 2:12 PM THREAD TRIMMER [facility] BLOOD UNIT STATUS TRANSFUSED,FINAL 09/29/2024 6:16 AM THREAD TRIMMER [facility] ISSUE DATE/TIME [id number] 025 6:16 AM [facility] PRODUCT CODE [id number] 09/29/2024 6:16 AM THREAD TRIMMER [facility] ABO/RH Unit A POS 09/29/2024 6:16 AM THREAD TRIMMER [facility] ABO/RH UNIT ISBT CODE 6200 09/29/2024 6:16 AM THREAD TRIMMER [facility] BLOOD UNIT EXPIRATION DATE [id number] 09/29/2024 6:16 AM [facility] TRANSFUSION STATUS OK TO TRANSFUSE 09/28/2024 2:12 PM THREAD TRIMMER [facility] CROSSMATCH COMPATIBLE-EXM 09/28/2024 2:12 PM [facility] 09/28/2024 1:15 PM THREAD TRIMMER us Jordi Olguin MD BLOOD BANK TEST ORDERABLES F inal Result [facility] [address] [place] [address], [place] [phone] documented in this encounter Visit Diagnoses Diagnosis [...] TKO rate New Bag 09/28/2024 3:06 PM THREAD TRIMMER 100 mLs 10 mL/hr documented in this encounter Active and Recently Administered Medications Times are shown in THREAD TRIMMER. Continuous Medication Order 09/26/2024 09/27/2024 09/28/2024 sodium chloride 0.9% infusion at 10 mL/hr, Intravenous, Continuous, Starting on Sat09/28/24 at 1315, Until Sat09/28/24 at 1905, Infuse at TKO rate 1506 (New Bag - Prov ider: Keerthi Christian RN) documented in this encounter Care Teams Oil Heat Technician Relationship Specialty Start Date End Date Shivam Lombardo DO [address] [place] [address] PCP - General FAMILY PRACTICE 05/29/21 Kimberly Vieira, RN [address] [facility] [address] [place] [address] Registered Nurse CARE MANAGEMENT 03/23/24 documented as of this encounter
--- OUTSIDE RECORDS SUMMARY | 2024-09-29 18:06 | XMS_ITS | CONTINUITY OF CARE DOCUMENT ---
Author Name sami gallardo Address Unknown Organization [facility] Address [address] [facility] [address] [place] [address] Phone [phone] Care Team Providers Care Jacket Changer Name Role Phone Dawood PEREZ, Pee Unavailable [phone] DEON PEREZ, KODI Unavailable [phone] REESE NERI, SUDHA Bolden Unavailable INSURANCE PROVIDERS Payer name Policy type / Coverage type [place] [employer] party ID [id number] PAY [id number]
--- OUTSIDE RECORDS SUMMARY | 2024-09-29 18:06 | XMS_ITS | Encounter Summary ---
Author Organization [facility] Address [address] [place] [address] Care Team Providers Care Hydraulic Hammer Operator Name Role Phone Shivam Lombardo DO Primary Care Provider + Kimberly Vieira RN Unavailable [phone] Encounter Details Date Type Department Care Team (Late st Contact Info) Description 11/15/2022 Airpersonst Message Enc [facility] Family & Internal [facility] [address] [place] [address] Shivam Lombardo DO [address] [place] [address] Mammogram Results Social History Tobacco Use Types Packs/Day Years Used Date Smoking Tobacco: Never Smokeless Tobacco: Never Alcohol Use Standard Drinks/Week Comments Never 0 (1 standard drink = 0.6 oz pur e alcohol) PHQ-2 Answer Date Recorded Patient Health Questionnaire-2 Score 0 10/15/2022 Comments No Sex and Gender Information Value Date Recorded Sex Assigned at Female 07/29/2024 1:13 PM CITY DISTRIBUTION CLERK Legal Sex Female 8:19 PM CDT Gender Identity Female 09/04/2021 4:46 PM CITY DISTRIBUTION CLERK Sexual Orientation Not on file Occupation Industry Job Start Date Job End Date Not on file Not on file Not on file Not on file documented as of this encounter Plan of Treatment Not on file documented as of this encounter Visit Diagnoses Not on filedocumented in this encounter Care Teams Hydraulic Hammer Operator Relationship Specialty Start Date End Date Shivam Lombardo DO [address] [place] [id number] PCP - General FAMILY PRACTICE 05/29/21 Kimberly Vieira, RN [address] [facility] [address] [place] [address] Registered Nurse CARE MANAGEMENT 03/23/24 documented as of this encounter
--- OUTSIDE RECORDS SUMMARY | 2024-09-29 18:06 | XMS_ITS | Clinical Summary ---
Author Organization [facility] Address [address] [place] [address] Phone Care Team Providers Care Casket Trimmer Name Role Phone Grupo Shivam P DO Primary Care Provider + Trini Lazaro MD Unavailable Jordi Olguin MD Unavailable [phone] Allergies No known active allergies Medications citalopram [...] Encounters Date Type Department Care Team Description 09/29/2024 Telephone [facility] [address] [address] Jordi Olguin MD Canopy Call / Er visit 09/28/2024 11:00 AM DROP WIRE OPERATOR Lab [facility] [address] [address] Nurse, Cc Lynette MDS (myelodysplastic syndrome), low grade (HCC) (Primary Dx); Pancytopenia (HCC) 09/28/2024 Telephone [facility] [address] [address] Jordi Olguin MD 09/28/2024 Travel 09/28/2024 Telephone [facility] [address] [address] Jordi Olguin MD Canopy Call / Weekly CBC and EPO 09/24/2024 1:00 PM DROP WIRE OPERATOR Office Visit [facility] [address] [address] Jordi Olguin MD MDS (myelodysplastic syndrome), low grade (HCC) (Primary Dx) 09/21/2024 2:15 PM DROP WIRE OPERATOR Clinical Support [facility] [address] [address] Nurse, Cc Lynette MDS (myelodysplastic syndrome), low grade (HCC) (Primary Dx) 09/21/2024 2:00 PM DROP WIRE OPERATOR Office Visit [facility] [address] [address] Renetta Urbina, CONSULTING IT ARCHITECT, PHOTOGRAPHIC ENLARGER OPERATOR MDS (myelodysplastic syndrome), low grade (HCC) (Primary Dx); Pancytopenia (HCC) 09/21/2024 1:45 PM DROP WIRE OPERATOR Lab [facility] [address] [phone] Lab, Cc Ofallon Pancytopenia (HCC); MDS (myelodysplastic syndrome), low grade (HCC) 09/21/2024 Telephone [facility] [address] [phone] Jordi Olguin MD 09/21/2024 Travel 09/07/2024 1:30 PM DROP WIRE OPERATOR Clinical Support [facility] [address] [phone] Nurse, Cc Ofallon MDS (myelodysplastic syndrome), low grade (HCC) (Primary Dx); Pancytopenia (HCC) 09/07/2024 Travel 08/24/2024 2:15 PM DROP WIRE OPERATOR Clinical Support [facility] [address] [phone] Nurse, Cc Ofallon MDS (myelodysplastic syndrome), low grade (HCC) (Primary Dx) 08/24/2024 2:00 PM DROP WIRE OPERATOR Office Visit [facility] [address] [phone] Renetta Urbina APRN, [place] Pancytopenia (HCC) (Primary Dx); MDS (myelodysplastic syndrome), low grade (HCC) 08/24/2024 1:45 PM DROP WIRE OPERATOR Lab [facility] [address] [phone] Lab, Cc Of[place]on Pancytopenia (HCC); MDS (myelodysplastic syndrome), low grade (HCC) 08/24/2024 Travel 08/10/2024 2:15 PM DROP WIRE OPERATOR Clinical Support [facility] [address] [phone] Nurse, Cc Ofallon Pancytopenia (HCC) (Primary Dx); MDS (myelodysplastic syndrome), low grade (HCC) 08/10/2024 Travel 07/27/2024 2:15 PM DROP WIRE OPERATOR Clinical Support [facility] [address] [phone] Nurse, Cc Ofallon MDS (myelodysplastic syndrome), low grade (HCC) (Primary Dx); Pancytopenia (HCC) 07/27/2024 2:00 PM DROP WIRE OPERATOR Office Visit [facility] [address] [phone] Gay Dye APRN, PHOTOGRAPHIC ENLARGER OPERATOR MDS (myelodysplastic syndrome), low grade (HCC) (Primary Dx); Pancytopenia (HCC) 07/27/2024 1:45 PM DROP WIRE OPERATOR Lab [facility] [address] [phone] Lab, Cc Of[place]on Pancytopenia (HCC); MDS (myelodysplastic syndrome), low grade (HCC) 07/27/2024 Travel 07/13/2024 1:45 PM DROP WIRE OPERATOR Clinical Support [facility] [address] [phone] Nurse, Cc Ofallon MDS (myelodysplastic syndrome), low grade (HCC) (Primary Dx) 07/13/2024 1:35 PM DROP WIRE OPERATOR Lab [facility] [address] [phone] Lab, Cc [place] Pancytopenia (HCC); MDS (myelodysplastic syndrome), low grade (HCC) 07/13/2024 Telephone [facility] [address] [address] Jordi Olguin MD 07/13/2024 Travel 06/29/2024 2:00 PM DROP WIRE OPERATOR Clinical Support [facility] [address] [phone] Nurse, Cc Ofallon MDS (myelodysplastic syndrome), low grade (HCC) (Primary Dx) 06/29/2024 2:00 PM DROP WIRE OPERATOR Office Visit [facility] [address] [phone] Jordi Olguin MD Pancytopenia (HCC) (Primary Dx); [...] Comments Blood Pressure 118/62 09/24/2024 1:09 PM DROP WIRE OPERATOR Pulse 77 09/24/2024 1:09 PM DROP WIRE OPERATOR Temperature 36.4 ??C (97.5 ??F) 09/24/2024 1:09 PM CS T Respiratory Rate 18 09/24/2024 1:09 PM DROP WIRE OPERATOR Oxygen Saturation 97% 09/24/2024 1:09 PM DROP WIRE OPERATOR Inhaled Oxygen Concentration - - Weight 73.8 kg (162 lb 9.6 oz) 09/24/2024 1:09 P M DROP WIRE OPERATOR Height 154.9 cm (5' 1 ) 09/24/2024 1:09 PM DROP WIRE OPERATOR Body Mass Index 30.72 09/24/2024 1:09 PM DROP WIRE OPERATOR Plan of Treatment Upcoming Encounters Date Type Department Care Team (Late st Contact Info) Description 10/05/2024 1:35 PM DROP WIRE OPERATOR Lab [facility] [address] [phone] Lab, [facility] 10/05/2024 1:45 PM DROP WIRE OPERATOR Office Visit [facility] [address] [phone] Jordi Olguin MD [address] [place], [place] [address] 10/12/2024 11:00 AM DROP WIRE OPERATOR Lab [facility] [address] [address] Lab, [facility] 10/19/2024 11:00 AM DROP WIRE OPERATOR Lab [facility] [address] [address] Lab, [facility] 10/26/2024 12:45 AM DROP WIRE OPERATOR Lab [facility] [address] [address] Lab, [facility] 10/26/2024 1:00 PM DROP WIRE OPERATOR Office Visit [facility] [address] [phone] Jordi Olguin MD [facility] [place], [place] [phone] Health Maintenance Due Date Last Done Comments [...] (CBC) WITH DIFF Routine 09/28/2024 11:02 AM DROP WIRE OPERATOR Pancytopenia (HCC) MDS (myelodysplastic syndrome), low grade (HCC) CMP (COMPREHENSIVE METABOLIC PANEL) Routine 09/21/2024 1:55 PM DROP WIRE OPERATOR Pancytopenia (HCC) MDS (myelodysplastic syndrome), low grade (HCC) COMPLETE BLOOD COUNT (CBC) WITH DIFF Routine 09/21/2024 1:55 PM DROP WIRE OPERATOR Pancytopenia (HCC) MDS (myelodysplastic syndrome), low grade (HCC) IRON W/ IRON BINDING CAPACITY OH Routine 09/21/2024 1:55 PM DROP WIRE OPERATOR Pancytopenia (HCC) MDS (myelodysplastic syndrome), low grade (HCC) FERRITIN Routine 09/21/2024 1:55 PM DROP WIRE OPERATOR Pancytopenia (HCC) MDS (myelodysplastic syndrome), low grade (HCC) CBC WITH AUTO DIFF OH Routine 09/07/2024 1:30 PM DROP WIRE OPERATOR MDS (myelodysplastic syndrome), low grade (HCC) COMPLETE BLOOD COUNT (CBC) WITH DIFF Routine 08/24/2024 2:05 PM DROP WIRE OPERATOR Pancytopenia (HCC) MDS (myelodysplastic syndrome), low grade (HCC) IRON W/ IRON BINDING CAPACITY OH Routine 08/24/2024 2:05 PM DROP WIRE OPERATOR Pancytopenia (HCC) MDS (myelodysplastic syndrome), low grade (HCC) RETICULOCYTE COUNT (RETIC) Routine 08/24/2024 2:05 PM DROP WIRE OPERATOR Pancytopenia (HCC) MDS (myelodysplastic syndrome), low grade (HCC) FERRITIN Routine 08/24/2024 2:05 PM DROP WIRE OPERATOR Pancytopenia (HCC) MDS (myelodysplastic syndrome), low grade (HCC) CBC WITH AUTO DIFF OH Routine 08/10/2024 1:48 PM DROP WIRE OPERATOR Pancytopenia (HCC) CBC WITH AUTO DIFF OH Routine 07/27/2024 1:52 PM DROP WIRE OPERATOR MDS (myelodysplastic syndrome), low grade (HCC) COMPLETE BLOOD COUNT (CBC) WITH DIFF Routine 07/13/2024 1:41 PM DROP WIRE OPERATOR Pancytopenia (HCC) MDS (myelodysplastic syndrome), low grade (HCC) COMPLETE BLOOD COUNT (CBC) WITH DIFF Routine 06/29/2024 2:44 PM DROP WIRE OPERATOR MDS (myelodysplastic syndrome), low grade (HCC) from Last 3 Months Results * (ABNORMAL) COMPLETE BLOOD COUNT (CBC) WITH DIFF (09/28/2024 11:02 AM DROP WIRE OPERATOR) Only the most recent of5 resultswithin the time period is included. WBC 2.6(L) 4.0 - 10.0 10*3/uL [facility] HGB 6.4(LL) 11.2 - 15.7 g/dL [facility] Comment: Critical Result reported to Keerthi Briones on 09/28/2024 11:24 by ? Nathanael Hansen. Results were read back to caller. HCT 21.4(L) 34.1 - 44.9 % [facility] PLT 93(L) 163 - 369 10*3/uL [facility] MPV 11.0 9.4 - 12.[address] [facility] RBC 2.16(L) 3.93 - 5.22 10*6/uL [facility] MCV 99(H) 79 - [address] [facility] MCH 29.6 25.6 - 32.[address] [facility] MCHC 29.9(L) 32.2 - 36.5 g/dL [facility] RDW 14.7(H) 11.6 - 14.4 % [facility] Absolute Neutrophil Count 1,415 cells/uL [facility] Absolute Seg Count 1,415(L) 1,440 - 6,600 cells/uL [facility] Absolute Lymph Count 996 760 - 4,000 cells/uL [facility] Absolute [place] Count 210 160 - 1,200 cells/uL [facility] Segmented Neutrophils 54 36 - 66 % [facility] Lymphocytes 38 19 - 40 % [facility] Monocytes 8 4 - 12 % [facility] WBC Estimate Low [facility] Platelet Estimate Low [facility] RBC Morphology Abnormal [facility] Macrocytosis 1+ [facility] Blood 09/28/2024 11:0 2 AM DROP WIRE OPERATOR Narrative [facility] - 09/28/2024 1:24 PM DROP WIRE OPERATOR Release to patient->Immediate Renetta Urbina APRN, PHOTOGRAPHIC ENLARGER OPERATOR HEMATOLOGY ORDERABLES Final Result [facility] [place] [address], [place] [phone] * (ABNORMAL) IRON W/ IRON BINDING CAPACITY [place] (09/21/2024 1:55 PM DROP WIRE OPERATOR) Only the most recent of2 resultswithin the time period is included. IRON 263(H) 50 - 212 ug/dL [facility] UIBC 80(L) 155 - 355 ug/dL [facility] TIBC 343 261 - 478 ug/dl [facility] % Saturation 77(H) 20 - 50 % [facility] 09/21/2024 1:55 PM DROP WIRE OPERATOR Narrative [facility] - 09/21/2024 2:44 PM DROP WIRE OPERATOR Release to patient->Immediate Renetta Urbina APRN, PHOTOGRAPHIC ENLARGER OPERATOR LAB SEND OUTS Final Result Performing Organization Address City/[facility]/ZIP Co de Phone Number [facility] [place] [address], * FERRITIN (09/21/2024 1:55 PM DROP WIRE OPERATOR) Only the most recent of2 resultswithin the time period is included. Ferritin 16 11 - 307 ng/mL [facility] Blood 09/21/2024 1:55 PM DROP WIRE OPERATOR Narrative [facility] - 09/22/2024 2:20 PM DROP WIRE OPERATOR Release to patient->Immediate Renetta Urbina APRN, CNP CHEMISTRY ORDERABLES Final Result Performing Organization Address [facility] Co de Phone Number [facility] [place] [address], * (ABNORMAL) CMP (COMPREHENSIVE METABOLIC PANEL) (09/21/2024 1:55 PM DROP WIRE OPERATOR) Glucose 181(H) 70 - 105 mg/dL [facility] Blood Urea Nitrogen 28(H) 7 - 25 mg/dL [facility] Creatinine 0.8 0.6 - 1.2 mg/dL [facility] Sodium 140 136 - 145 mEq/L [facility] Potassium 3.9 3.5 - 5.1 mEq/L [facility] Chloride 104 98 - 107 mEq/L [facility] Bicarbonate 31 21 - 31 mEq/L [facility] Total Bilirubin 0.9 0.3 - 1.0 mg/dL [facility] Alk. Phosphatase 66 34 - 104 U/L [facility] Aspartate Aminotransferase 23 13 - 39 U/L [facility] Alanine Aminotransferase 15 7 - 52 U/L [facility] Total Protein 5.3(L) 6.4 - 8.9 g/dL [facility] Albumin 3.3(L) 3.5 - 5.7 g/dL [facility] Calcium 9.9 8.6 - 10.3 mg/dL [facility] Anion Gap 8.9 7.0 - 15.0 mEq/L [facility] Globulin 2.0 2.0 - 3.5 g/dL [facility] EGFR 75 >60 ml/min/1. 73m2 [facility] Comment: This eGFR is calculated using 2020 CKD-EPI Creatinine equation without race modifier based on the NKF-ASN task force recommendations Blood 09/21/2024 1:55 PM DROP WIRE OPERATOR Narrative [facility] - 09/21/2024 2:44 PM DROP WIRE OPERATOR Release to patient->Immediate IS THE PATIENT REQUIRED TO BE FASTING FOR 8 HOURS?->No Renetta Urbina APRN, PHOTOGRAPHIC ENLARGER OPERATOR CHEMISTRY ORDERABLES Final Result [facility] [place] [address], * (ABNORMAL) CBC WITH AUTO DIFF [place] (09/07/2024 1:30 PM DROP WIRE OPERATOR) Only the most recent of3 resultswithin the time period is included. WBC 3.8(L) 4.0 - 10.0 10*3/uL [facility] HGB 9.0(L) 11.2 - 15.7 g/dL [facility] HCT 28.4(L) 34.1 - 44.9 % [facility] PLT 87(L) 163 - 369 10*3/uL [facility] MPV 10.8 9.4 - 12.[address] f[address] [facility] RBC 2.81(L) 3.93 - 5.22 10*6/uL [facility] MCV 101(H) 79 - 95 fL [facility] MCH 32.0 25.6 - 32.2 [address] [facility] MCHC 31.7(L) 32.2 - 36.5 g/dL [facility] RDW 14.5(H) 11.6 - 14.4 % [facility] Neutrophils % 57.0 36.0 - 66.0 % [facility] Lymphocytes % 27.6 19.0 - 40.0 % [facility] Monocytes % 12.7(H) 4.1 - 12.1 % [facility] Eosinophils % 2.1 0.0 - 3.5 % [facility] Basophils % 0.3 0.0 - 1.0 % [facility] Absolute Neutrophils 2.2 1.4 - 6.6 10*3/uL [facility] Absolute Lymphocytes 1.0 0.8 - 4.0 10*3/uL [facility] Absolute Monocytes 0.5 0.2 - 1.2 10*3/uL [facility] Absolute Eosinophils 0.1 0.0 - 0.4 10*3/uL [facility] Absolute Basophils 0.0 0.0 - 0.1 10*3/uL [facility] 09/07/2024 1:30 PM DROP WIRE OPERATOR Renetta Urbina APRN, PHOTOGRAPHIC ENLARGER OPERATOR LAB SEND OUTS Final Result [facility] [place] [address], * (ABNORMAL) RETICULOCYTE COUNT (RETIC) (08/24/2024 2:05 PM DROP WIRE OPERATOR) Reticulocyte count 4.27(H) 0.50 - 1.70 % [facility] RET-He 36.20 28.20 - 36.60 [address] [facility] Comment: RET-He is a direct assessment of incorporation of iron into erythrocyte hemoglobin. It provides an indirect measure of the iron available for new erythropoiesis over past 2-4 days. Blood 08/24/2024 2:05 PM DROP WIRE OPERATOR Narrative [facility] - 08/24/2024 2:15 PM DROP WIRE OPERATOR Release to patient->Immediate Gay E DeMattei CONSULTING IT ARCHITECT, PHOTOGRAPHIC ENLARGER OPERATOR HEMATOLOGY ORDERABL ES Final Result [facility] [place] [address], from Last 3 Months Insurance [employer] [facility] MEDICARE Care Teams Casket Trimmer Relationship Specialty Start Date End Date Shivam Lombardo DO [address] [place] [id number] PCP - General Family Medicine 11/15/23 Trini Lazaro MD [address] [place] [address] Consulting Physician Oncology 11/15/23 Jordi Olguin MD [address] [place] [address] Consulting Physician Oncology 05/11/24
== END 2024-09-29 18:21 | disposition home or self-care (01) ==
LOC: ANHED 18:04
PROVIDERS: Emergency Provider Registered Nurse; PCP Student in an Organized Health Care Education/Training Program
DX: S83.91XA Sprain of unspecified site of right knee, initial encounter (principal); S06.0X0A Concussion without loss of consciousness, initial encounter; R07.89 Other chest pain; F41.9 Anxiety disorder, unspecified; K21.9 Gastro-esophageal reflux disease without esophagitis; G47.30 Sleep apnea, unspecified; J45.909 Unspecified asthma, uncomplicated; E78.5 Hyperlipidemia, unspecified; E11.9 Type 2 diabetes mellitus without complications; I10 Essential (primary) hypertension; W01.0XXA Fall on same level from slipping, tripping and stumbling without subsequent striking against object, initial encounter
CPT/HCPCS: 70450; 71046; 73564; 93971; 96372; 99284; J1885

== ENCOUNTER 2024-10-22 10:23 | Outpatient (CLI) | payer MEDICARE, SELFPAY | END 2024-10-22 10:24 | disposition home or self-care (01) | PROVIDERS: PCP Student in an Organized Health Care Education/Training Program; Visit Provider Internal Medicine Gastroenterology | DX: K74.60 Unspecified cirrhosis of liver (principal) | CPT/HCPCS: 76705 ==

== ENCOUNTER 2024-11-05 13:01 | Outpatient (CLI) | payer MEDICARE, SELFPAY ==
[2024-11-05 13:45] LABS: Hematocrit 31.5 % (37.0-47.0); Hemoglobin 9.6 g/dL (12.0-15.0); Mean Corpuscular HGB Conc 30.5 g/dl (32-36); Mean Corpuscular Hemoglobin 30.4 pg (26-34); Mean Corpuscular Volume 99.7 fl (80-100); Mean Platelet Volume 10.7 fl (7.4-10.4); Platelet Count Result 116 k/mm3 (150-375); Red Blood Count 3.16 M/mm3 (4.2-5.4); Red Cell Distribution Width 16.4 % (11.5-14.5); White Blood Count 3.1 K/mm3 (4.5-10.0)
[2024-11-05 13:59] LABS: INR 1.1; Prothrombin Time 14.9 Seconds (11.1-14.7)
[2024-11-05 14:10] LABS: Alanine Aminotransferase 20 U/L (6-35); Albumin Level 3.1 g/dL (3.5-5.1); Alkaline Phosphatase 110 U/L (38-126); Anion Gap 4 mmol/L (4-12); Aspartate Amino Transferase 30 U/L (14-36); Bilirubin,Total 1.6 mg/dL (0.2-1.3); Blood Urea Nitrogen 14 mg/dL (7-17); Calcium 9.5 mg/dL (8.4-10.2); Carbon Dioxide 34 mmol/L (22-30); Chloride 101 mmol/L (98-107); Estimated Glomerular Filt Rate 60; Glucose 94 mg/dL (65-110); Potassium 3.6 mmol/L (3.4-5.0); Sodium 139 mmol/L (137-145)
--- OUTSIDE RECORDS SUMMARY | 2024-11-05 14:36 | XMS_ITS | Clinical Summary ---
Author Organization [facility] Address [address] [place] [id number] Care Team Providers Care Classroom Paraprofessional Name Role Phone Shivam Lombardo Lulu DO Primary Care Provider + Kimberly Vieira RN Unavailable [phone] Allergies No known active allergies Medications Glucose Blood test stripIndication s:Type 2 diabetes mellitus without complication, without long-term current use of insulin ([facility]) Check blood sugar once daily in AM when fasting 100 strip 11 05/30/20 22 Active Blood Glucose Monitoring Suppl (ONE TOUCH ULTRA 2) w/Device KitIndications: Type 2 diabetes mellitus without complication, without long-term current use of insulin ([facility]) Check blood sugar once daily in AM when fasting 1 kit 05/30/20 22 Active Lancets (ONETOUCH ULTRASOFT) lancetsIndicati ons:Type 2 diabetes mellitus without complication, without long-term current use of insulin ([facility]) Check blood sugar once daily in AM when fasting 1 each 11 05/30/20 22 Active pantoprazole EC (PROTONIX) 40 MG tabletIndicatio ns:Gastroesopha geal reflux disease, unspecified whether esophagitis present take 1 tablet every day 90 tablet 3 11/11/19 24 Active furosemide (LASIX) 20 MG tabletIndicatio ns:Type 2 diabetes mellitus without complication, without long-term current use of insulin ([facility]) take 1 tablet every day 90 tablet 3 11/11/19 24 Active Additional Information Patient taking differently: 80 mg Oral Daily, Reported on 10/14/2024 acetaminophen (TYLENOL) 325 MG tablet Take 2 tablets (650 mg total) by mouth every 6 (six) hours as needed. 01/26/20 24 Active polyethylene glycol (MIRALAX) 17 GM/SCOOP powderIndicatio ns:Constipation Take 17 g by mouth daily. Dissolve powder in 240 mL water 255 g 03/26/20 24 Active Cholecalciferol (D3) 50 MCG (1999 UT) Tab Take 1 tablet by mouth daily. Active lisinopril (PRINIVIL) 20 MG tabletIndicatio ns:Primary hypertension Take 1 tablet (20 mg total) by mouth daily. 90 tablet 3 05/20/20 24 025 Active triamcinolone (KENALOG) 0.1 % creamIndication s:Psoriasis Apply topically 2 (two) times daily. 45 g 05/21/20 24 Active ferrous sulfate, 65 mg elemental, (FEROSUL) 325 (65 FE) MG tabletIndicatio ns:Anemia, unspecified type TAKE 1 TABLET EVERY DAY WITH BREAKFAST 90 tablet 07/29/20 24 Active citalopram (CELEXA) 10 MG tabletIndicatio ns:SYEDA (generalized anxiety disorder) TAKE 1 TABLET EVERY DAY 90 tablet 3 09/01/19 25 Active VENTOLIN HFA 108 (90 Base) MCG/ACT inhalerIndicati ons:Mild intermittent asthma without complication (HHS/HCC) INHALE 2 PUFFS INTO THE LUNGS EVERY 6 (SIX) HOURS NEEDED FOR WHEEZING. 54 g 10/27/19 25 Active VENTOLIN HFA 108 (90 Base) MCG/ACT inhalerIndicati ons:Mild intermittent asthma without complication (HHS/HCC) Inhale 2 puffs into the lungs every 6 (six) hours as needed for Wheezing. 54 g 1 01/17/20 24 025 Discontinued Active Problems Problem Noted Date Diagnosed Date MDS (myelodysplastic syndrome), low grade (CMS/H CC HHS/HCC) 07/29/2024 Gastroesophageal reflux disease 05/18/2024 Cirrhosis of liver (CMS/HCC HHS/HCC) 05/18/2024 Care Management 03/31/2024 Iron deficiency anemia 03/27/2024 Overweight with body mass in dex (BMI) of 29 to 29.9 in adult 03/27/2024 Pancytopenia 01/06/2024 SYEDA (generalized anxiety disorder) 05/29/2021 Primary hypertension 05/29/2021 Mixed hyperlipidemia 05/29/2021 Type 2 diabetes mellitus wit h microalbuminuria, without long-term current use of insulin ([facility] HHS/HCC) 05/29/2021 S/P total knee replacement, left 05/29/2021 Mild intermittent asthma without complication (H HS/HCC) 05/29/2021 Psoriasis 05/29/2021 Resolved Problems Problem Noted Date Diagnosed Date Resolved Date SDH (subdural hematoma) 01/25/2024 06/0 02/2024 Encounters Date Type Department Care Team Description 11/04/2024 Telephone [facility] Internal [address] [address] Shivam Lombardo, DO Swelling 10/30/2024 Telephone [facility] Internal [address] [address] Shivam Lombardo, DO Advice 10/26/2024 3:09 PM CARNIVAL WORKER - 10/26/2024 11:59 PM CARNIVAL WORKER Hospital Encounter [facility] [place] [address] Jordi Olguin MD Discharge Disposition: Home or Self Care (Routine Discharge) 10/26/2024 3:09 PM CARNIVAL WORKER - 10/26/2024 8:50 PM CARNIVAL WORKER Hospital Encounter [facility] [place] [address] Jordi Olguin MD Discharge Disposition: Home or Self Care (Routine Discharge) 10/26/2024 Travel 10/26/2024 [place] [address] Jordi Olguin MD 10/26/2024 Patient Outreach [facility] Internal [address] [address] Elin Ni, [employer] 10/22/2024 Scan [facility] Scanned, [facility] Ultrasound (SCAN) 10/22/2024 Patient Outreach [facility] Internal [place] [address] [place] [address] Kimberly Vieira, RN Care Management (CCM) 10/12/2024 Scan [facility] Scanned, [facility] Lab (SCAN) 10/12/[address] [address] Shivam Lombardo, DO Information 10/05/2024 3:11 PM CARNIVAL WORKER - 10/06/2024 1:01 AM [facility] Emergency [facility] [place] [address] Khnag Cohn, Abnormal Lab Results Discharge Disposition: Home or Self Care (Routine Discharge) 10/05/2024 Scan [facility] Scanned, [facility] 10/05/2024 Travel 09/29/2024 Scan [facility] Scanned, [facility] Image (SCAN); CT (SCAN); Ultrasound (SCAN) 09/28/2024 12:50 PM CARNIVAL WORKER - 09/28/2024 5:05 PM [facility] Hospital Encounter [facility] [place] [address] Jordi Olguin MD Discharge Disposition: Home or Self Care (Routine Discharge) 09/28/2024 Travel 09/25/2024 Patient Outreach [address] [phone] Kimberly Vieira, RN Care Management (CCM) 09/24/2024 Scan [facility] Scanned, [facility] 09/22/2024 Scan [facility] Scanned, [facility] 09/22/2024 Telephone [facility] Internal [address] [address] Shivam Lombardo, DO Information 09/21/2024 4:05 PM CARNIVAL WORKER - 09/21/2024 10:39 PM [facility] Emergency [facility] [place] [address] Rosalina Mcbride MD Jerome, Jason P, MD,PHD Abnormal Lab Results Discharge Disposition: Home or Self Care (Routine Discharge) 09/21/2024 Scan [employer] SRVCS Scanned, [facility] 09/21/2024 Travel 09/16/2024 Patient Outreach [address] [phone] Kimberly Vieira RN Care Management (CCM/) 09/10/2024 Telephone [facility] Internal [address] [phone] Shivam Lombardo, DO Information 09/02/[address] [phone] Shivam Lombardo, DO Medication Request 08/24/2024 Scan [employer] SRVCS Scanned, [facility] from Last [...] Sex Assigned at Female 07/29/2024 1:13 PM CARNIVAL WORKER Legal Sex Female 8:19 PM CDT Gender Identity Female 09/04/2021 4:46 PM CARNIVAL WORKER Sexual Orientation Not on file Occupation Industry Job Start Date Job End Date Not on file Not on file Not on file Not on file Last Filed Vital Signs Vital Sign Reading Time Taken Comments Blood Pressure 122/57 10/26/2024 8:09 PM CARNIVAL WORKER Pulse 79 10/26/2024 8:09 PM CARNIVAL WORKER Temperature 36.8 C (98.3 F) 10/26/2024 8:09 PM CARNIVAL WORKER Respiratory Rate 18 10/26/2024 8:09 PM CARNIVAL WORKER Oxygen Saturation 99% 10/26/2024 8:09 PM CARNIVAL WORKER Inhaled Oxygen Concentration - - Weight 77.1 kg (170 lb) 10/05/2024 2:42 PM CARNIVAL WORKER Height 152.4 cm (5') 10/05/2024 2:42 PM CARNIVAL WORKER Body Mass Index 33.2 10/05/2024 2:42 PM CARNIVAL WORKER Plan of Treatment Upcoming Encounters Date Type Department Care Team (Late st Contact Info) Description 11/06/2024 1:00 PM CDT Office Visit [facility] Family [facility] - [place] [address] [place] [address] Shivam Lobmardo, [address] [place] [id number] Health Maintenance Due Date Last Done Comments Kidney Health Evaluation 1945 Annual Medicare Wellness Visit 2011 Lipid Panel 08/08/2024 08/08/2023, 04/28, 06/08/2021 COVID-19 Vaccine ( season) 2024 06/23/2024, 07/01/2023, 06/13/2022, Additional history exists PHQ-2 (Physician [place]) 08/26/2024 11/11/2023 Diabetes: Retinopathy Eye Exam 09/02/2024 [...] Discontinued 02/12/2024, 10/29/2016 Influenza Adult Completed 06/23/2024, 01/2023, 06/13/2022, Additional history exists RSV Immunization [...] anemia aeb the below: Lifestyle On track(2024 1:44 PM CARNIVAL WORKER) Kimberly Dupree RN Note: .1) Patient will [...] cirrhosis aeb the below: Lifestyle On track(2024 1:44 PM CARNIVAL WORKER) Kimberly Dupree RN Note: 1) Patient will [...] MDS aeb the below: Lifestyle On track(2024 1:44 PM CARNIVAL WORKER) Kimberly Dupree RN Note: .1) patient will [...] Diagnosis Comments TRANSFUSE RED BLOOD CELLS Routine 10/26/2024 5:09 PM CARNIVAL WORKER TYPE & SCREEN Routine 10/26/2024 3:18 PM CARNIVAL WORKER MDS (myelodysplastic syndrome), low grade (CMS/HCC HHS/HCC) ULTRASOUND GENERIC (SCAN ORDER) 10/22/2024 OUTSIDE LAB (SCAN ORDER) 10/12/2024 OUTSIDE LAB (SCAN ORDER) 10/12/2024 OUTSIDE LAB (SCAN ORDER) 10/12/2024 TRANSFUSE RED BLOOD CELLS STAT 10/05/2024 10:48 PM CARNIVAL WORKER TRANSFUSE RED BLOOD CELLS STAT 10/05/2024 7:11 PM CARNIVAL WORKER TYPE & SCREEN STAT 10/05/2024 3:20 PM CARNIVAL WORKER PROTHROMBIN TIME, VENOUS STAT 10/05/2024 3:20 PM CARNIVAL WORKER PARTIAL THROMBOPLASTIN TIME,PTT STAT 10/05/2024 3:20 PM CARNIVAL WORKER CBC W/DIFF AUTOMATED STAT 10/05/2024 3:[address] GENERIC 09/29/2024 IMAGE GENERIC 09/29/2024 ULTRASOUND GENERIC (SCAN ORDER) 09/29/2024 IMAGE GENERIC 09/29/2024 TRANSFUSE RED BLOOD CELLS Routine 09/28/2024 2:45 PM CARNIVAL WORKER TYPE & SCREEN Routine 09/28/2024 1:15 PM CARNIVAL WORKER MDS (myelodysplastic syndrome), low grade (CMS/HCC HHS/HCC) TRANSFUSE RED BLOOD CELLS STAT 09/21/2024 8:12 PM CARNIVAL WORKER TRANSFUSE RED BLOOD CELLS STAT 09/21/2024 5:51 PM CARNIVAL WORKER ECG 12-LEAD Routine 09/21/2024 4:33 PM CARNIVAL WORKER IRON SAT PANEL (IRON,IBC,%SAT) STAT 09/21/2024 4:15 PM CARNIVAL WORKER TROPONIN, QUANT STAT 09/21/2024 4:15 PM CARNIVAL WORKER COMPREHENSIVE METABOLIC PANEL STAT 09/21/2024 4:15 PM CARNIVAL WORKER PROTHROMBIN TIME, VENOUS STAT 09/21/2024 4:15 PM CARNIVAL WORKER CBC W/DIFF AUTOMATED STAT 09/21/2024 4:15 PM CARNIVAL WORKER TYPE & SCREEN STAT 09/21/2024 4:14 PM CARNIVAL WORKER XR CHEST PORTABLE STAT 09/21/2024 4:1 2 PM CARNIVAL WORKER HEMOGLOBIN, GLYCOSYLATED Routine 07/29/2024 Type 2 diabetes mellitus with stage 2 chronic kidney disease, without long-term current use of insulin (CMS/HCC HHS/HCC) COLONOSCOPY GENERIC (SCAN ORDER) 02/12/2024 HEPATITIS PANEL,ACUTE Routine 02/04/2024 11:05 AM CDT Pancytopenia, acquired Elevated liver enzymes Other cirrhosis of liver DIABETIC RETINOPATHY EXAM (NEGATIVE)(SCAN ORDER) Routine 09/02/2023 LIPID PANEL Routine 08/08/2023 11:25 AM CARNIVAL WORKER Type 2 diabetes mellitus with microalbuminuria, without long-term current use of insulin Mixed hyperlipidemia Primary hypertension BONE DENSITY GENERIC (SCAN ORDER) 07/04/2022 from Last 3 Months or Most Recently Relevant to Health Maintenance Results * TRANSFUSE RED BLOOD CELLS (10/26/2024 8:32 PM CARNIVAL WORKER) Only the most recent of6 resultswithin the time period is included. us Jordi Olguin MD NURSING TREATMENT ORDERABLES - BLOOD ADMIN Final Result * TYPE & SCREEN (10/26/2024 3:18 PM CARNIVAL WORKER) Only the most recent of4 resultswithin the time period is included. UNITS ORDERED 1 10/27/2024 6:31 AM CARNIVAL WORKER [facility] ABO/RH A POSITIVE 10/26/2024 4:47 PM CARNIVAL WORKER [facility] ANTIBODY SCREEN NEGATIVE 4:47 PM CARNIVAL WORKER [facility] SAMPLE EXPIRATION 10/29/2024,2359 10/26/2024 4:47 PM CARNIVAL WORKER [facility] BLOOD UNIT NUMBER [id number] 10/26/2024 4:47 PM CARNIVAL WORKER [facility] PRODUCT: PC LEUKOPOOR 10/26/2024 4:47 PM CARNIVAL WORKER [facility] UNIT DIVISION 00 10/26/2024 4:47 PM CARNIVAL WORKER [facility] BLOOD UNIT STATUS TRANSFUSED,FINAL 10/27/2024 6:36 AM CARNIVAL WORKER [facility] ISSUE DATE/TIME [id number] 6:36 AM CARNIVAL WORKER [facility] PRODUCT CODE [id number] 10/27/2024 6:36 AM CARNIVAL WORKER [facility] ABO/RH Unit A POS 10/27/2024 6:36 AM CARNIVAL WORKER [facility] ABO/RH UNIT ISBT CODE 6200 10/27/2024 6:36 AM CARNIVAL WORKER [facility] BLOOD UNIT EXPIRATION DATE [id number] 10/27/2024 6:36 AM CARNIVAL WORKER [facility] TRANSFUSION STATUS OK TO TRANSFUSE 10/26/2024 4:47 PM CARNIVAL WORKER [facility] CROSSMATCH COMPATIBLE-EXM 10/26/2024 4:47 PM CARNIVAL WORKER [facility] 10/26/2024 3:18 PM CARNIVAL WORKER us Jordi Olguin MD BLOOD BANK TEST ORDERABLES F inal Result [facility] [address] [place] [address], [place] [phone] * ULTRASOUND GENERIC (SCAN ORDER) (10/22/2024) Only the most recent of2 resultswithin the time period is included. Anatomical Region Laterality Modality Other 10/22/2024 [facility] Scanned SCANNING Final Resu lt * OUTSIDE LAB (SCAN ORDER) (10/12/2024) Only the most recent of3 resultswithin the time period is included. 10/12/2024 [facility] Scanned SCANNING Final Resu lt * PARTIAL THROMBOPLASTIN TIME,PTT (10/05/2024 3:20 PM CARNIVAL WORKER) PTT 36.5 25.1 - 36.5 SEC 10/05/2024 3:53 PM CARNIVAL WORKER [facility] 10/05/2024 3:20 PM CARNIVAL WORKER Tony Jenkins MD LABORATORY Final Resul t [facility] [address] [place] [address], * PROTIME/INR, VENOUS (10/05/2024 3:20 PM CARNIVAL WORKER) Only the most recent of2 resultswithin the time period is included. PROTIME 12.9 10.2 - 12.9 SEC 10/05/2024 3:53 PM CARNIVAL WORKER [facility] INR 1.1 10/05/2024 3:53 PM CARNIVAL WORKER [facility] Comment: Recommended INR Therapeutic Goals: 2.0-3.0 Routine Therapy 2.5-3.5 Mechanical Prosthetic Valves (High Risk) 10/05/2024 3:20 PM CARNIVAL WORKER us Tony NERI LABORATORY Final Resul t [facility] [address] [place] [address], [place] [phone] * (ABNORMAL) CBC W/DIFF AUTOMATED (10/05/2024 3:20 PM CARNIVAL WORKER) Only the most recent of2 resultswithin the time period is included. WBC 3.08(L) 4.5 - 11.0 x10'3/uL 10/05/2024 3:35 PM CARNIVAL WORKER [facility] RBC 2.25(L) 4.20 - 5.40 x10'6/uL 10/05/2024 3:35 PM CARNIVAL WORKER [facility] HGB 6.3(LL) 12.0 - 16.0 G/DL 10/05/2024 3:35 PM [facility] Comment: This result has been called to JOHN JUAN by [id number] on 10/05/2024 15:35:38, and has been read back. HCT 21.9(L) 38.0 - 48.0 % 10/05/2024 3:35 PM CARNIVAL WORKER [facility] MCV 97.3 81.0 - 99.0 FL 10/05/2024 3:35 PM CARNIVAL WORKER [facility] MCH 28.0 27.0 - 31.0 PG 10/05/2024 3:35 PM CARNIVAL WORKER [facility] MCHC 28.8(L) 32.0 - 36.0 G/DL 10/05/2024 3:35 PM [facility] RDW 14.3 11.5 - 14.5 % 10/05/2024 3:35 PM [facility] PLT 105(L) 130 - 400 x10'3/uL 10/05/2024 3:35 PM [facility] MPV 11.9 9.3 - 12.2 FL 10/05/2024 3:35 PM [facility] DIFFERENTIAL TYPE AUTOMATED DIFFERENTIAL 10/05/2024 4:09 PM [facility] NEUTROPHILS % 63.1 % 10/05/2024 4:09 PM [facility] LYMPHOCYTES % 22.4 % 10/05/2024 4:09 PM [facility] MONOCYTES % 10.7 % 10/05/2024 4:09 PM [facility] EOSINOPHILS 3.2 % 10/05/2024 4:09 PM [facility] BASOPHILS 0.3 % 10/05/2024 4:09 PM [facility] IMMATURE GRANS % 0.3 % 10/05/19 4:09 PM [facility] ABS. NEUTROPHILS 1.94 1.80 - 7.70 x10'3/uL 10/05/2024 4:09 PM [facility] ABS. LYMPHOCYTES 0.69(L) 1.00 - 4.80 x10'3/uL 10/05/2024 4:09 PM [facility] ABS. MONOCYTES 0.33 0.24 - 0.86 x10'3/uL 10/05/2024 4:09 PM [facility] ABS. EOSINOPHILS 0.10 0.04 - 0.36 x10'3/uL 10/05/2024 4:09 PM [facility] ABS. BASOPHILS 0.01 0.01 - 0.08 x10'3/uL 10/05/2024 4:09 PM [facility] ABS. IMMATURE GRANULOCYTES 0.01 0.00 - 0.49 x10'3/uL 10/05/2024 4:09 PM CARNIVAL WORKER [facility] RBC MORPHOLOGY RBC MORPHOLOGY APPEARS NORMAL. SLIDE REVIEWED. 10/05/2024 4:09 PM CARNIVAL WORKER [facility] PLT EST. ADEQUATE 10/05/2024 4:09 PM CARNIVAL WORKER [facility] 10/05/2024 3:20 PM CARNIVAL WORKER Tony NERI LABORATORY Final Resul t [facility] [address] [place] [address], [place] [phone] * CT GENERIC (09/29/2024) Anatomical Region Laterality Modality Other 09/29/2024 [facility] Scanned SCANNING Final Resu lt * IMAGE GENERIC (09/29/2024) Only the most recent of2 resultswithin the time period is included. Anatomical Region Laterality Modality Other 09/29/2024 [facility] Scanned SCANNING Final Resu lt * ECG 12 lead (09/21/2024 4:33 PM CARNIVAL WORKER) 09/21/2024 4:33 PM CARNIVAL WORKER Narrative [facility] - 09/21/2024 9:50 PM CARNIVAL WORKER [address] Test Date: 2024-09-21 Pat Name: LEIA DILLON Department: 41 Room: Gender: Female Physical Chemist: : 1945 Requested By: BONNIE ROSE Order Number: [id number] Shukri MD: Tony Tanner Measurements Intervals [place] Rate: 80 P: 89 MS: 165 QRS: -11 QRSD: 134 T: -2 QT: 419 QTc: 486 Interpretive Statements SINUS RHYTHM RIGHT BUNDLE BRANCH BLOCK [120+ ms QRS DURATION, UPRIGHT V1, 40+ ms S IN I/aVL/V4/V5/V6] MINIMAL VOLTAGE CRITERIA FOR LVH, CONSIDER NORMAL VARIANT [MEETS CRITERIA IN ONE OF: R(aVL), S(V1), R(V5), R(V5/V6)+S(V1)] No previous ECG available for comparison Other ischemic changes, not STEMI IVAL WORKER Procedure Note Tony Tanner MD - 09/21/[address] [place] Test Date: 2024-09-21 Pat Name: LEIA DILLON Department: Room: Gender: Female Physical Chemist: : 1945 Requested By: BONNIE ROSE Order Number: [id number] Reading MD: Tony Tanner Measurements Intervals [place] Rate: 80 P: 89 MS: 165 QRS: -11 QRSD: 134 T: -2 QT: 419 QTc: 486 Interpretive Statements SINUS RHYTHM RIGHT BUNDLE BRANCH BLOCK [120+ ms QRS DURATION, UPRIGHT V1, 40+ ms S IN I/aVL/V4/V5/V6] MINIMAL VOLTAGE CRITERIA FOR LVH, CONSIDER NORMAL VARIANT [MEETS CRITERIAIN ONE OF: R(aVL), S(V1), R(V5), R(V5/V6)+S(V1)] No previous ECG available for comparison Other ischemic changes, not STEMI IVAL WORKER us Bonnie Rose SYSTEM CONFIGURATION SPECIALIST ECG ORDERABLES Final Result [facility] RAD * IRON SAT PANEL (IRON,IBC,%SAT) (09/21/2024 4:15 PM CARNIVAL WORKER) IRON 144 50.0 - 170.0 MCG/DL 09/21/2024 4:54 PM [facility] IRON BINDING CAPACITY 329 250 - 450 MCG/DL 09/21/2024 4:54 PM CARNIVAL WORKER [facility] IRON SATURATION 44 20 - 55 % 4:54 PM [facility] 09/21/2024 4:15 PM CARNIVAL WORKER Bonnie Rose NP LABORATORY Final Result [facility] [address] [place] [address], * (ABNORMAL) COMPREHENSIVE METABOLIC PANEL (09/21/2024 4:15 PM CARNIVAL WORKER) GLUCOSE 101(H) 70 - 99 MG/DL 09/21/2024 4:54 PM [facility] BUN 29(H) 7 - 18 MG/DL 09/21/2024 4:54 PM [facility] CREATININE S/P/B 0.91 0.55 - 1.02 MG/DL 09/21/2024 4:54 PM [facility] SODIUM S/P/B 140 136 - 145 MMOL/L 09/21/2024 4:54 PM [facility] POTASSIUM S/P/B 3.8 3.5 - 5.1 MMOL/L 09/21/2024 4:54 PM [facility] CHLORIDE S/P/B 104 97 - 115 MMOL/L 09/21/2024 4:54 PM [facility] CO2 30.5 21 - 32 MMOL/L 09/21/2024 4:54 PM [facility] CALCIUM S/P/B 9.6 8.5 - 10.1 MG/DL 09/21/2024 4:54 PM CARNIVAL WORKER [facility] BILIRUBIN TOTAL S/P/B 0.7 0.2 - 1.2 MG/DL 09/21/2024 4:54 PM [facility] Comment: THIS ASSAY IS NOT RECOMMENDED FOR PATIENTS UNDERGOING TREATMENT WITH ELTROMBOPAG DUE TO THE POTENTIAL FOR FALSELY ELEVATED RESULTS. TOTAL PROTEIN S/P/B 5.8(L) 6.4 - 8.2 G/DL 09/21/2024 4:54 PM [facility] ALBUMIN S/P/B 2.9(L) 3.4 - 5.0 G/DL 09/21/2024 4:54 PM [facility] AST 39(H) 15 - 37 U/L 09/21/2024 4:54 PM [facility] ALT 23 14 - 55 U/L 09/21/2024 4:54 PM [facility] ALKALINE PHOSPHATASE S/P/B 79 50 - 136 U/L 09/21/2024 4:54 PM [facility] ANION GAP 5.5 2 - 10 MMOL/L 09/21/2024 4:54 PM [facility] BUN CREATININE RATIO 31.9(H) 6 - 26 09/21/2024 4:54 PM [facility] A/G RATIO 1.0 1.0 - 2.0 RATIO 09/21/2024 4:54 PM [facility] GFR ESTIMATE 65(L) >90 ML/MIN/1.7 3 M2 09/21/2024 4:54 PM [facility] Comment: NOTE: eGFR is not calculated for patients <18 years of age or gender unknown. This is an estimated GFR calculation using the new CKD EPI creatinine equation without race and so does not require a correction factor for race. This estimated GFR should not be used for calculating drug doses. 09/21/2024 4:15 PM CARNIVAL WORKER Bonnie Rose SYSTEM CONFIGURATION SPECIALIST LABORATORY Final Result [facility] [address] [place] [address], [place] [phone] * TROPONIN, QUANT (09/21/2024 4:15 PM CARNIVAL WORKER) TROPONIN I HIGH SENSITIVITY 8 <54 ng/L 09/21/2024 4:54 PM CARNIVAL WORKER [facility] Comment: HIGH DOSES OF BIOTIN, TROPONIN-SPECIFIC AUTOANTIBODIES, AND ANTIBODY THERAPY CONTAINING HAMA MAY INTERFERE WITH THIS TEST RESULT. CORRELATION TO CLINICAL HISTORY AND PRESENTATION RECOMMENDED. 09/21/2024 4:15 PM CARNIVAL WORKER Bonnie Rose SYSTEM CONFIGURATION SPECIALIST LABORATORY Final Result Performing Organization Address City/[facility]/ZIP Co de Phone Number [facility] [address] [place] [address], [place] [phone] * XR CHEST PORTABLE (09/21/2024 4:12 PM CARNIVAL WORKER) Anatomical Region Laterality Modality Chest Radiographic Nae ging 09/21/2024 4:14 PM CARNIVAL WORKER Impressions 09/21/2024 4:15 PM CARNIVAL WORKER =====IMPRESSION:===== No radiographic evidence of active chest disease. Ordered By: BONNIE ROSE Interpreted By: Benji Izquierdo MD, 09/21/2024 4:14 PM Narrative 09/21/2024 4:15 PM CARNIVAL WORKER [facility] [address] [place], [place] [address] Examination: Chest x-ray 1 view Exam date/time: 09/21/2024 3:46 PM Reason For Exam: Weakness. Low hemoglobin. Comparison: 06/19/2022 PA chest Technique: Upright AP view of the chest demonstrated. Findings: Cardiac silhouette and pulmonary vasculature are within normal limits. Lungs appear clear. No evidence of pleural effusion. External metallic type density related to a bra. Overall, no radiographic evidence of active chest disease. Procedure Note Benji Izquierdo MD - 09/21/[address] [address] Examination: Chest x-ray 1 view Exam date/time: [...] By: Benji Izquierdo MD, 09/21/2024 4:14 PM Bonnie Rose SYSTEM CONFIGURATION SPECIALIST GENERAL IMAGING Final Result * HEMOGLOBIN, GLYCOSYLATED (07/29/2024) HGB A1C 5.2 % [facility] 07/29/2024 us Shivam Lombardo DO LABORATORY Final Re sult [facility] [address] [place] [address], [place] * COLONOSCOPY GENERIC (SCAN ORDER) (02/12/2024) 02/12/2024 [place] [facility] Scanned SCANNING Final Resu lt * HEPATITIS PANEL,ACUTE (02/04/2024 11:05 AM CDT) HEPATITIS B SURFACE AG NON-REACT SANTIAGO NON-REACT SANTIAGO 02/04/2024 7:22 PM CDT [facility] Comment:HBsAg NOT DETECTED. HEP B CORE IGM NON-REACT SANTIAGO NON-REACT SANTIAGO 02/04/2024 7:22 PM CDT [facility] Comment: IgM ANTI HBc NOT DETECTED. DOES NOT EXCLUDE THE POSSIBILITY OF EXPOSURE TO OR INFECTION WITH HBV. NO RETEST REQUIRED. HIGH DOSES OF BIOTIN MAY INTERFERE WITH THIS TEST RESULT. CORRELATION TO CLINICAL HISTORY AND PRESENTATION RECOMMENDED. HAV IGM NON-REACT SANTIAGO NON-REACT SANTIAGO 02/04/2024 7:22 PM CDT [facility] Comment: IgM ANTI HAV NOT DETECTED. DOES NOT EXCLUDE THE POSSIBILITY OF EXPOSURE TO OR INFECTION WITH HAV. LEVELS OF IgM ANTI HAV MAY BE BELOW THE CUTOFF IN EARLY INFECTION. HEPATITIS C AB NON-REACT SANTIAGO NON-REACT SANTIAGO 02/04/2024 7:22 PM CDT [facility] Comment: ANTIBODIES TO HCV NOT DETECTED. DOES NOT EXCLUDE THE POSSIBILITY OF EXPOSURE TO HCV. 02/04/2024 11:0 5 AM CDT Shivam Lombardo DO LABORATORY Final Re sult [facility] [address] [place] [address], [id number] * DIABETIC RETINOPATHY EXAM (NEGATIVE) (09/02/2023) [facility] Scanned SCANNING Final Resu lt Performing Organization Address City/[facility]/ZIP Co de Phone Number [facility] ONBASE * (ABNORMAL) LIPID PANEL (08/08/2023 11:25 AM CARNIVAL WORKER) CHOLESTEROL 123 100 - 199 mg/dL [facility] TRIGLYCERIDES 123 0 - 149 mg/dL [facility] HDL 32(L) >39 mg/dL [facility] VLDL CALCULATION 22 5 - 40 mg/dL [facility] LDL (CALCULATED) 69 0 - 99 mg/dL [facility] 1 08/08/2023 11:2 5 AM CARNIVAL WORKER 08/08/2023 Narrative [facility] - 08/09/2023 9:11 AM CARNIVAL WORKER Performed at: 01 - [facility] [address] [id number] Section Supervisor: Luciano Lawrence PhD, Phone: [phone] us Shivam Lombardo DO LABORATORY Final Re sult [facility] [address] [place] [address] [facility] * BONE DENSITY GENERIC (07/04/2022) Anatomical Region Laterality Modality Other 07/04/2022 us Doc [facility] Scanned SCANNING Final Resu lt from Last 3 Months or Most Recently Relevant to Health Maintenance Insurance MEDICARE AET Care Teams Classroom Paraprofessional Relationship Specialty Start Date End Date Shivam Lombardo DO [address] [place] [id number] PCP - General FAMILY PRACTICE 05/29/21 Kimberly Vieira, RN [phone] [address] Registered Nurse CARE MANAGEMENT 03/23/24
--- OUTSIDE RECORDS SUMMARY | 2024-11-05 14:36 | XMS_ITS | Clinical Summary ---
Author Organization [facility] Nhi Padilladolores Address [address] [place] [address] Care Team Providers Care Extension Clerk Name Role Phone Grupo Shivam Lawson DO [...] Encounters Date Type Department Care Team Description 10/14/2024 External Device Data [facility] ABSTRACTION Provider, Abstract 09/23/2024 External Device Data [facility] ABSTRACTION Provider, [...] 87 06/19/2024 9:41 AM CDT Temperature 36.8 C (98.2 F) 06/19/2024 9:41 AM CDT Respiratory Rate 20 06/19/2024 9:41 AM CDT [...] 11/11/2023, 08/08/2023, Additional history exists PNEUMOCOCCAL VACCINE 50+ YEARS Completed 02/18/2018 , 02/08/2017 OSTEOPOROSIS SCREENING Completed 07/04/2022, 2021 [place] [address] MEDICARE PART A AND B [employer] MEDICARE SUPP AESSI Care Teams Extension Clerk Relationship Specialty Start Date End Date Shivam Lombardo DO [address] [place] [phone] PCP - General Family Practice 05/13/24
--- OUTSIDE RECORDS SUMMARY | 2024-11-05 14:36 | XMS_ITS | Patient Health Summary ---
Author Organization [facility] [employer] Address [address] [facility] [place] [address] Care Team Providers Care Sales Agent Pest Control Service Name Role Phone Khang Greer MD Primary Care Provider [phone] Note from [facility],non-owned Affiliates and Associated Physician Practices is amultiple site organization consisting of ambulatory clinics and hospital sitesin [place], [place] and [place]. This disclosure is being madepursuant to the Care Everywhere program and may not contain all information available regarding this patient. Last updated 18.[facility] Allergies No known active allergies Medications [...] 65 01/26/2024 11:05 AM CDT Temperature 36.5 C (97.7 F) 01/26/2024 11:05 AM CDT Respiratory Rate 16 01/26/2024 11:05 AM CDT [...] 4.0 - 10.7 x10E9/L 01/26/2024 5:52 AM [facility] RBC Count 2.82(L) 3.90 - 5.20 x10E12/L 01/26/2024 5:52 AM [facility] Hemoglobin 8.9(L) 11.9 - 15.8 g/dL 01/26/2024 5:52 AM [facility] Hematocrit 27.2(L) 34.8 - 46.1 % 01/26/2024 5:52 AM [facility] MCV 96.5 80.0 - 98.0 fL 01/26/2024 5:52 AM [facility] MCH 31.6 26.7 - 33.6 pg 01/26/2024 5:52 AM [facility] MCHC 32.7 31.7 - 36.3 g/dL 01/26/2024 5:52 AM [facility] RDW-CV 16.3(H) 11.3 - 14.8 % 01/26/2024 5:52 AM [facility] Platelet Count 96(L) 150 - 420 x10E9/L 01/26/2024 5:52 AM [facility] MPV 11.8(H) 7.8 - 11.4 fL 01/26/2024 5:52 AM [facility] Blood BLOOD SPECIMEN / Unknown Lab Venipuncture / Unknown 01/26/2024 4:44 AM CDT 01/26/2024 5:11 AM CDT Juan Miguel Gonzalez MD LAB - HEMATOLOGY ORD ERABLES [facility] [address] [place] [address], [facility] [phone] * (ABNORMAL) BASIC METABOLIC PANEL (CALCIUM TOTAL) (01/26/2024 4:44 AM CDT) Only the most recent of3 resultswithin the time period is included. BUN 21 7 - 26 mg/dL 01/26/2024 5:32 AM [facility] Creatinine 0.88 0.56 - 0.96 mg/dL 01/26/2024 5:32 AM [facility] Sodium 140 136 - 145 mmol/L 01/26/2024 5:32 AM [facility] Potassium 4.1 3.5 - 4.5 mmol/L 01/26/2024 5:32 AM [facility] Chloride 107 98 - 107 mmol/L 01/26/2024 5:32 AM [facility] CO2 27 22 - 29 mmol/L 01/26/2024 5:32 AM [facility] Glucose 107 70 - 115 mg/dL 01/26/2024 5:32 AM [facility] Calcium 10.0 8.4 - 10.2 mg/dL 01/26/2024 5:32 AM [facility] Anion Gap 6 6 - 16 01/26/2024 5:32 AM [facility] BUN/Creatinine Ratio 24(H) 7 - 23 01/26/2024 5:32 AM [facility] Osmolality Calculated 293 275 - 295 mOsm/kg 01/26/2024 5:32 AM [facility] eGFR by CKD-EPI 67(L) >=90 mL/min/1.7 3 m2 01/26/2024 5:32 AM CDT [facility] Blood BLOOD SPECIMEN / Unknown Lab Venipuncture / Unknown 01/26/2024 4:44 AM CDT 01/26/2024 5:10 AM CDT Juan Miguel Gonzalez MD LAB - CHEMISTRY NAEEM PIZARRO Performing Organization Address [facility]/ZIP Co de Phone Number [facility] [address] [place] [address], [facility] [phone] * EKG 12-LEAD (01/25/2024 4:33 PM CDT) Pathologist [facility] Ventricular Rate 74 BPM SL MUSE Atrial Rate 74 BPM [facility] MUSE P-R Interval 160 ms [facility] MUSE QRS Duration ms 122 ms [facility] MUSE Q-T Interval ms 390 ms [facility] MUSE QTC Calculation (Bezet) 432 ms [facility] MUSE Calculated R [place] -170 degrees SL MUSE Calculated T [place] -163 degrees [facility] MUSE Interpretation EKG NORMAL SINUS RHYTHM RIGHT BUNDLE BRANCH BLOCK T WAVE ABNORMALITY, CONSIDER INFERIOR ISCHEMIA ABNORMAL ECG NO PREVIOUS ECGS AVAILABLE Confirmed by ANYA RICKS MD ([id number]) on 01/26/2024 7:30:32 AM [facility] 01/25/2024 4:33 PM CDT 01/26/2024 7:30 AM CDT Azalia Goodson MD ECG ORDERABLES Performing Organization Address [facility] Co de Phone Number [facility] * CT HEAD WO CONTRAST (01/25/2024 7:04 [...] > Dictated by Juan Miguel Francisco DO (vice president of talent acquisition) Elaine Wright MD have personally reviewed and interpreted this examination/study. > Interpreting Provider: Elaine Milton MD on 01/25/2024 2:23 PM Narrative 01/25/2024 2:23 PM CDT PROCEDURE: CT HEAD WO CONTRAST, DATE/TIME OF EXAM: 01/25/2024 7:04 AM, LOCATION [facility] INDICATION: W19.XXXA: Fall, initial [...] DATE/TIME OF EXAM: 01/25/2024 7:04 AM, LOCATION [facility] INDICATION: W19.XXXA: Fall, initial [...] > Dictated by Juan Miguel Francisco DO (vice president of talent acquisition) IElaine MD have personally reviewed and interpretedthis [...] identified. > Dictated by Ricky Roach MD (Professional Caster) I, Elaine Milton MD have personally reviewed and interpreted this examination/study. > Interpreting Provider: Elaine Milton MD on 01/24/2024 11:50 PM Narrative 01/24/2024 11:50 PM CDT PROCEDURE: CT HEAD WO CONTRAST, CT FACIAL BONES WO CONTRAST, DATE/TIME OF EXAM: 01/24/2024 10:05 PM, LOCATION [facility] INDICATION: W19.XXXA: Fall, initial encounter EXAMINATION: 1. Computed tomography (CT) of the head without contrast 2. CT of the maxillofacial bones, orbits, and paranasal sinuses without contrast TECHNIQUE: CT of the head and maxillofacial bones, orbits, and paranasal sinuses was [...] CONTRAST, DATE/TIMEOF EXAM: 01/24/2024 10:05 PM, LOCATION [facility] INDICATION: W19.XXXA: Fall, initial [...] identified. > Dictated by Ricky Roach MD (Professional Caster) I, Elaine Milton MD have personally reviewed and interpretedthis examination/study. > Interpreting Provider: Elaine Milton MD on 01/24/2024 11:50 PM Juan Miguel Gonzalez MD CT ORDERABLES * BLOOD TYPE VERIFICATION (01/24/2024 5:37 PM CDT) ABO Rh A POS 01/24/2024 6:2 2 PM CDT [facility] B[facility]OD [facility]ANK LAB Blood Bank BLOOD SPECIMEN / Unknown Venipuncture / Unknown 01/24/2024 5:37 PM CDT 01/24/2024 5:46 PM CDT Juan Miguel Gonzalez MD LAB - BLOOD BANK ORD ERABLES [facility] LAB [address] [place] [address], [facility] [phone] * XR CHEST 1VW PORTABLE (01/24/2024 4:31 PM CDT) Anatomical Region Laterality Modality Chest Radiographic Nae ging 01/24/2024 4:3 1 PM CDT Narrative 01/25/2024 8:14 AM CDT PROCEDURE: XR CHEST 1VW PORTABLE, DATE/TIME OF EXAM: 01/24/2024 4:31 PM, LOCATION [facility] INDICATION: W19.XXXA: Fall, initial [...] shoulders. Report dictated by Ricky Roach MD, (Professional Caster). Rosas Wright MD have personally reviewed and interpreted this examination/study. > Interpreting Provider: Rosas Davenport MD on 01/25/2024 8:14 AM Procedure Note Rosas Davenport MD - 01/25/2024 PROCEDURE: XR CHEST 1VW PORTABLE, DATE/TIME OF EXAM: 01/24/2024 4:31PM, LOCATION [facility] INDICATION: W19.XXXA: Fall, initial [...] shoulders. Report dictated by Ricky Roach MD, (Professional Caster). Rosas Wright MD have personally reviewed and [...] identified. Report dictated by Ricky Roach MD, (Professional Caster). Rosas Wright MD have personally reviewed and interpreted this examination/study. > Interpreting Provider: Rosas Davenport MD on 01/25/2024 8:14 AM Narrative 01/25/2024 8:14 AM CDT PROCEDURE: XR PELVIS 1 OR 2VW, DATE/TIME OF EXAM: 01/24/2024 4:31 PM, LOCATION [facility] INDICATION: W19.XXXA: Fall, initial [...] DATE/TIME OF EXAM: 01/24/2024 4:31 PM, LOCATION [facility] INDICATION: W19.XXXA: Fall, initial encounter COMPARISON: None. FINDINGS: No acute fracture is identified. The femoral heads appear well-seated within their respective acetabula. Degenerative changes of bilateral hip joints. The pubic symphysis is intact. The bones are mildly diffusely demineralized. The sacroiliac joints are normal. IMPRESSION: No acute fracture identified. Report dictated by Ricky Roach MD, (Professional Caster). I, Rosas Davenport MD have personally reviewed and interpreted this examination/study. > Interpreting Provider: Rosas Davenport MD on 01/25/2024 8:14 AM Juan Miguel Gonzalez MD DIAGNOSTIC IMAGING O RDERABLES * TEG 6 GLOBAL HEMOSTASIS W/ LYSIS (01/24/2024 4:20 PM CDT) Citrated Kaolin R (Reaction Time) 5.1 4.6 - 9.1 min [facility]/24/2024 5:31 PM [facility] Cit[facility] Kaolin LY30 (Lysis) 0.1 0.0 - 2.6 % 01/24/2024 5:31 PM CDT [facility] Citrated Functional Fibrinogen MA (Max Amplitude) 27.4 15.0 - 32.0 mm 01/24/2024 5:31 PM CDT [facility] Citrated RapidTEG MA (Max Amplitude) 64.7 52.0 - 70.0 mm 01/24/2024 5:31 PM [facility] Blood BLOOD SPECIMEN / Unknown Venipuncture / Unknown 01/24/2024 4:20 PM CDT 01/24/2024 4:34 PM CDT Juan Miguel Gonzalez MD LAB - HEMATOLOGY ORD ERABLES [facility] [address] [place] [address], [place] [phone] * TEG 6S PLATELET MAPPING (01/24/2024 4:20 PM CDT) [facility] TEGPLM (Max Amplitude) Koalin 64.7 53.0 - 68.0 mm 01/24/2024 5:31 PM CDT [facility] TEGPLM (Max Amplitude) ACTF 19.0 2.0 - 19.0 mm 01/24/2024 5:31 PM CDT [facility] TEGPLM (Max Amplitude) ADP 61.6 45.0 - 69.0 mm 01/24/2024 5:31 PM T [facility] TEGPLM (Max Amplitude) AA 61.6 51.0 - 71.0 mm 01/24/2024 5:31 PM CDT [facility] TEGPLM %Inhibition ADP 6.8 0.0 - 17.0 % 01/24/2024 5:31 PM T [facility] TEGPLM %Inhibition AA 6.8 0.0 - 11.0 % 01/24/2024 5:31 PM T [facility] TEGPLM %Aggregation ADP 93.2 83.0 - 100.0 % 01/24/2024 5:31 PM T [facility] TEGPLM % Aggregation AA 93.2 89.0 - 100.0 % 01/24/2024 5:31 PM T [facility] Blood BLOOD SPECIMEN / Unknown Venipuncture / Unknown 01/24/2024 4:20 PM CDT 01/24/2024 4:34 PM CDT Juan Miguel Gonzalez MD LAB - HEMATOLOGY ORD ERABLES [facility] [address] [place] [address], [place] [phone] * PTT [facility] (01/24/2024 4:20 PM CDT) Pathologist [facility] APTT 36.1 23.0 - 38.4 Seconds 01/24/2024 5:02 PM CDT [facility] Comment:Suggested therapeuti c range for full dose I.V. unfractionated heparin therapy for venous thromboembolism is 71 to 109 seconds. Blood BLOOD SPECIMEN / Unknown Venipuncture / Unknown 01/24/2024 4:20 PM CDT 01/24/2024 4:26 PM CDT Juan Miguel Gonzalez MD LAB - COAGULATION OR DERABLES [address] [address], [place] [phone] * (ABNORMAL) PT-INR [facility] (01/24/2024 4:20 PM CDT) [facility] PT 16.3(H) 12.1 - 14.8 Seconds 01/24/2024 5:02 PM CDT [facility] INR 1.4 See Comment 01/24/2024 5:02 PM CDT [facility] Comment:The suggested therap eutic range for standard coumadin (warfarin) therapy is an INR of 2.0-3.0. For high-risk patients (Mechanical Mitral Valve Prosthesis, etc.), the suggested prophylactic therapeutic range is an INR of 2.5-3.5. Blood BLOOD SPECIMEN / Unknown Venipuncture / Unknown 01/24/2024 4:20 PM CDT 01/24/2024 4:26 PM CDT Juan Miguel Gonzalez MD LAB - COAGULATION OR DERABLES [facility] [address] [place] [address], [place] [phone] * TYPE + SCREEN PANEL (01/24/2024 4:20 PM CDT) Pathologist [facility] Antibody Screen NEG 5:15 PM CDT [facility] BLOOD BANK LAB ABO Rh A POS 01/24/2024 5:15 PM T [facility] BLOOD BANK LAB Blood Bank BLOOD SPECIMEN / Unknown Venipuncture / Unknown 01/24/2024 4:20 PM CDT 01/24/2024 4:29 PM CDT Juan Miguel Gonzalez MD LAB - BLOOD BANK ORD ERABLES [facility] BLOOD [facility] LAB [address] [place] [address], [facility] [phone] * (ABNORMAL) CBC W AUTO DIFFERENTIAL (01/24/2024 4:20 PM CDT) WBC 3.2(L) 4.0 - 10.7 x10E9/L 01/24/2024 4:41 PM [facility] RBC Count 2.88(L) 3.90 - 5.20 x10E12/L 01/24/2024 4:41 PM [facility] Hemoglobin 9.0(L) 11.9 - 15.8 g/dL 01/24/2024 4:41 PM [facility] Hematocrit 27.3(L) 34.8 - 46.1 % 01/24/2024 4:41 PM [facility] MCV 94.8 80.0 - 98.0 fL 01/24/2024 4:41 PM [facility] MCH 31.3 26.7 - 33.6 pg 01/24/2024 4:41 PM [facility] MCHC 33.0 31.7 - 36.3 g/dL 01/24/2024 4:41 PM [facility] RDW-CV 16.2(H) 11.3 - 14.8 % 01/24/2024 4:41 PM [facility] Platelet Count 103(L) 150 - 420 x10E9/L 01/24/2024 4:41 PM [facility] MPV 11.2 7.8 - 11.4 fL 01/24/2024 4:41 PM [facility] Neutrophil % 64.0 41.0 - 74.0 % 01/24/2024 4:41 PM [facility] Lymphocyte % 25.6 17.0 - 47.0 % 01/24/2024 4:41 PM [facility] Monocyte % 7.6 3.0 - 11.0 % 01/24/2024 4:41 PM [facility] Eosinophil % 2.2 0.0 - 7.0 % 01/24/2024 4:41 PM [facility] Basophil % 0.3 0.0 - 1.6 % 01/24/2024 4:41 PM [facility] Immature Granulocytes % 0.3 0.0 - 1.0 % 01/24/2024 4:41 PM [facility] Neutrophil Absolute 2.03 1.60 - 7.50 x10E9/L 01/24/2024 4:41 PM [facility] Lymphocyte Absolute 0.81(L) 1.00 - 4.40 x10E9/L 01/24/2024 4:41 PM [facility] Monocyte Absolute 0.24 0.15 - 1.00 x10E9/L 01/24/2024 4:41 PM [facility] Eosinophil Absolute 0.07 0.00 - 0.60 x10E9/L 01/24/2024 4:41 PM [facility] Basophil Absolute 0.01 0.00 - 0.13 x10E9/L 01/24/2024 4:41 PM [facility] Blood BLOOD SPECIMEN / Unknown Venipuncture / Unknown 01/24/2024 4:20 PM CDT 01/24/2024 4:28 PM CDT Juan Miguel Gonzalez MD LAB - HEMATOLOGY ORD ERABLES [facility] [address] [place] [address], [facility] [phone] * (ABNORMAL) PHOSPHORUS BLOOD (01/24/2024 4:20 PM CDT) Phosphorus 2.4(L) 2.9 - 5.1 mg/dL 01/24/2024 5:06 PM [facility] Blood BLOOD SPECIMEN / Unknown Venipuncture / Unknown 01/24/2024 4:20 PM CDT 01/24/2024 4:53 PM CDT Juan Miguel Gonzalez MD LAB - CHEMISTRY NAEEM PIZARRO Performing Organization Address [facility]/ZIP Co de Phone Number [address] [address], [facility] [phone] * MAGNESIUM BLOOD (01/24/2024 4:20 PM CDT) Magnesium 2.2 1.6 - 2.6 mg/dL 01/24/2024 5:06 PM CDT [facility] Blood BLOOD SPECIMEN / Unknown Venipuncture / Unknown 01/24/2024 4:20 PM CDT 01/24/2024 4:53 PM CDT Juan Miguel Gonzalez MD LAB - CHEMISTRY NAEEM PIZARRO Performing Organization Address [facility] Co de Phone Number [address] [address], [facility] [phone] * ALCOHOL ETHYL BLOOD (01/24/2024 4:20 PM CDT) Ethanol (mg/dL) <10 <10 mg/dL 5:06 PM CDT [facility] Ethanol Calculated (g/dL) <0.010 <=0.010 g/dL 01/24/2024 5:06 PM CDT [facility] Blood BLOOD SPECIMEN / Unknown Venipuncture / Unknown 01/24/2024 4:20 PM CDT 01/24/2024 4:53 PM CDT Narrative [facility] - 01/24/2024 5:06 PM CDT Ethanol Interp <10: None Detected. Depression of MONOTYPIST: >100 mg/dl Potentially Critical: >250 mg/dl Potentially [...] - CHEMISTRY NAEEM PIZARRO Performing Organization Address City/[facility]/ZIP Co de Phone Number [facility] [address] [place] [address], [facility] [phone] * PATHOLOGY/GENETICS HISTORICAL-ONBASE (02/16/2014) Only the most recent of3 resultswithin the time period is included. 02/16/[address] [facility] - 02/23/2014 7:41 AM CDT Lisa Parra MD LAB - CHEMISTRY NAEEM PIZARRO Performing Organization Address [facility] Co de Phone Number [facility] [address] * PAP IG RFLX HPV ASCU (07/21/2013) Only the most recent of4 resultswithin the time period is included. Endocervical 07/21/[address] [facility] - 07/29/2013 7:49 AM BLENDER Lisa Parra MD LAB - PATHOLOGY/CYTO LOGY ORDERABLES Performing Organization Address [facility] Co de Phone Number [place] [phone] [address] * LAB HISTORICAL RESULTS-ONBASE (03/09/2011) Only the most recent of3 resultswithin the time period is included. 03/09/2011 Historical Provider LAB - CHEMISTRY O RDERABLES Performing Organization Address City/[facility]/ZIP Co de Phone Number [facility] Care Teams Sales Agent Pest Control Service Relationship Specialty Start Date End Date Khang Greer MD [address] [place] [address] PCP - General 10/31/16
--- OUTSIDE RECORDS SUMMARY | 2024-11-05 14:36 | XMS_ITS | Clinical Summary ---
Author Organization [facility] Address [address] [place] [address] Phone Care Team Providers Care Assurance Services Manager Health Care Name Role Phone Shivam Lombardo DO Primary Care Provider + Trini Lazaro MD Unavailable Jordi Olguin MD Unavailable [phone] Allergies No known active allergies Medications citalopram (CeleXA) 10 MG Tablet Take 1 Tablet by mouth daily. 4 Active furosemide (LASIX) 20 MG Tablet Take 1 Tablet by mouth daily. 4 Active pantoprazole (PROTONIX) 40 MG Tablet Delayed Response Take 1 Tablet by mouth daily. 4 Active Cyanocobalamin (VITAMIN B-12 PO) Take by mouth. Active Cholecalciferol (VITAMIN D-3 PO) Take by mouth. Active acetaminophen (TYLENOL) 325 MG Tablet Take 650 mg by mouth. 4 Active fenofibrate (TRICOR) 145 MG Tablet Take 1 Tablet by mouth daily. 3 Active lisinopril (PRINIVIL, ZESTRIL) 20 MG Tablet Take 20 mg by mouth daily. 4 05/20/20 25 Active FeroSul 325 (65 Fe) MG Tablet Take 325 mg by mouth. 4 10/27/19 25 Discontinu ed(Med List Clean Up) Active Problems Problem Noted Date Diagnosed Date Anemia, unspecified 11/05/2024 Iron deficiency 10/05/2024 Low grade myelodysplastic syndrome lesions 06/08 Pancytopenia 01/06/2024 Hypertension Encounters Date Type Department Care Team Description 11/02/2024 1:30 PM CDT Clinical Support [facility] [address] [phone] Nurse, Cc Lynette MDS (myelodysplastic syndrome), low grade (HCC) (Primary Dx); Pancytopenia (HCC) 11/02/2024 Travel 11/02/2024 Telephone [facility] [address] [phone] Jordi Olguin MD Canopy Call / CBC and EPO 10/27/2024 Telephone [facility] [address] [phone] Jordi Olguin MD Canopy Call / GI referral 10/26/2024 1:15 PM MINERAL TECHNOLOGIST Clinical Support [facility] [address] [phone] Nurse, Cc Lynette MDS (myelodysplastic syndrome), low grade (HCC) (Primary Dx) 10/26/2024 1:00 PM MINERAL TECHNOLOGIST Office Visit [facility] [address] [phone] Jordi Olguin MD MDS (myelodysplastic syndrome), low grade (HCC) (Primary Dx) 10/26/2024 12:45 PM MINERAL TECHNOLOGIST Lab [facility] [address] [phone] Lab, Cc Lynette MDS (myelodysplastic syndrome), low grade (HCC) 10/26/2024 Telephone [facility] [address] [phone] Jordi Olguin MD 10/26/2024 Travel 10/19/2024 11:15 AM MINERAL TECHNOLOGIST Clinical Support [facility] [address] [phone] Nurse, Cc Ofallon MDS (myelodysplastic syndrome), low grade (HCC) (Primary Dx); Pancytopenia (HCC) 10/19/2024 11:00 AM MINERAL TECHNOLOGIST Lab [facility] [address] [phone] Lab, Cc Of[place]on 10/19/2024 Travel 10/12/2024 9:00 AM MINERAL TECHNOLOGIST Clinical Support [facility] [address] [phone] Nurse, Cc Of[place]on Iron deficiency (Primary Dx); Pancytopenia (HCC) 10/12/2024 8:00 AM MINERAL TECHNOLOGIST Procedure Visit [facility] [address] [phone] Jordi Olguin MD MDS (myelodysplastic syndrome), low grade (HCC) (Primary Dx) 10/12/2024 7:45 AM MINERAL TECHNOLOGIST Clinical Support [facility] [address] [phone] Nurse, Cc Ofallon MDS (myelodysplastic syndrome), low grade (HCC) (Primary Dx) 10/12/2024 Travel 10/05/2024 2:15 PM MINERAL TECHNOLOGIST Clinical Support [facility] [address] [phone] Nurse, Cc Of[place] Pancytopenia (HCC) (Primary Dx); MDS (myelodysplastic syndrome), low grade (HCC) 10/05/2024 1:45 PM MINERAL TECHNOLOGIST Office Visit [facility] [address] [phone] Cristina Maldonado, [place] SIEGEL Pancytopenia (HCC) (Primary Dx); MDS (myelodysplastic syndrome), low grade (HCC) 10/05/2024 1:35 PM MINERAL TECHNOLOGIST Lab [facility] [address] [phone] Lab, Cc [place] Pancytopenia (HCC); MDS (myelodysplastic syndrome), low grade (HCC) 10/05/2024 Results Follow-Up [facility] [address] [phone] Renetta Urbina APRN, CRITICAL CARE NURSE SPECIALIST 10/05/2024 Telephone [facility] [address] [phone] Jordi Olguin MD 10/05/2024 Travel 09/29/2024 Telephone [facility] [address] [phone] Jordi Olguin MD Canopy Call / Er visit 09/28/2024 11:00 AM MINERAL TECHNOLOGIST Lab [facility] [address] [phone] Nurse, Cc Lynette MDS (myelodysplastic syndrome), low grade (HCC) (Primary Dx); Pancytopenia (HCC) 09/28/2024 Telephone [facility] [address] [phone] Jordi Olguin MD 09/28/2024 Travel 09/28/2024 Telephone [facility] [address] [phone] Jordi Olguin MD Canopy Call / Weekly CBC and EPO 09/24/2024 1:00 PM MINERAL TECHNOLOGIST Office Visit [facility] [address] [phone] Jordi Olguin MD MDS (myelodysplastic syndrome), low grade (HCC) (Primary Dx) 09/21/2024 2:15 PM MINERAL TECHNOLOGIST Clinical Support [facility] [address] [phone] Nurse, Cc Lynette MDS (myelodysplastic syndrome), low grade (HCC) (Primary Dx) 09/21/2024 2:00 PM MINERAL TECHNOLOGIST Office Visit [facility] [address] [phone] Renetta Urbina APRN, CRITICAL CARE NURSE SPECIALIST MDS (myelodysplastic syndrome), low grade (HCC) (Primary Dx); Pancytopenia (HCC) 09/21/2024 1:45 PM MINERAL TECHNOLOGIST Lab [facility] [address] [phone] Lab, Cc Ofallon Pancytopenia (HCC); MDS (myelodysplastic syndrome), low grade (HCC) 09/21/2024 Telephone [facility] [address] [phone] Jordi Olguin MD 09/21/2024 Travel 09/07/2024 1:30 PM MINERAL TECHNOLOGIST Clinical Support [facility] [address] [phone] Nurse, Cc Ofallon MDS (myelodysplastic syndrome), low grade (HCC) (Primary Dx); Pancytopenia (HCC) 09/07/2024 Travel 08/24/2024 2:15 PM MINERAL TECHNOLOGIST Clinical Support [facility] [address] [phone] Nurse, Cc Of[place] MDS (myelodysplastic syndrome), low grade (HCC) (Primary Dx) 08/24/2024 2:00 PM MINERAL TECHNOLOGIST Office Visit [facility] [address] [phone] Renetta Urbina APRN, CRITICAL CARE NURSE SPECIALIST Pancytopenia (HCC) (Primary Dx); MDS (myelodysplastic syndrome), low grade (HCC) 08/24/2024 1:45 PM MINERAL TECHNOLOGIST Lab [facility] [address] [phone] Lab, Cc Of[place]on Pancytopenia (HCC); MDS (myelodysplastic syndrome), low grade (HCC) 08/24/2024 Travel 08/10/2024 2:15 PM MINERAL TECHNOLOGIST Clinical Support [facility] [address] [phone] Nurse, Cc [place] Pancytopenia (HCC) (Primary Dx); MDS (myelodysplastic syndrome), low grade (HCC) 08/10/2024 Travel from Last 3 Months Immunizations Immunization [...] Sign Reading Time Taken Comments Blood Pressure 106/60 10/26/2024 1:29 PM MINERAL TECHNOLOGIST Pulse 85 10/26/2024 1:29 PM MINERAL TECHNOLOGIST Temperature 36.5 C (97.7 F) 10/26/2024 1:29 PM MINERAL TECHNOLOGIST Respiratory Rate 18 10/26/2024 1:29 PM MINERAL TECHNOLOGIST Oxygen Saturation 95% 10/26/2024 1:29 PM MINERAL TECHNOLOGIST Inhaled Oxygen Concentration - - Weight 75.4 kg (166 lb 3.2 oz) 10/26/2024 1:29 P M MINERAL TECHNOLOGIST Height 152.4 cm (5') 10/26/2024 1:29 PM MINERAL TECHNOLOGIST Body Mass Index 32.46 10/26/2024 1:29 PM MINERAL TECHNOLOGIST Plan of Treatment Upcoming Encounters Date Type Department Care Team (Late st Contact Info) Description 11/09/2024 1:30 PM CDT Clinical Support [facility] [address] [phone] Nurse, Felisha [facility] 11/16/2024 1:30 PM CDT Office Visit [facility] [address] [phone] Jordi Olguin MD [address] [place], [place] [address] 11/16/2024 1:45 PM CDT Clinical Support [facility] [address] [phone] Nurse, Cc [facility] Health Maintenance Due Date Last Done Comments DEXA Bone Density 1945 TdaP Immunization 1945 Zoster Immunization (1 of 2) 1965 SARS-COV-2 Immunization (7 - Pfizer risk season) 2024 06/23/2024, 07/01/2023, 06/13/2022, Additional history [...] Procedure Name Priority Date/Time Associated Diagnosis Comments CBC WITH AUTO DIFF OH Routine 11/02/2024 1:05 PM CDT Pancytopenia (HCC) MDS (myelodysplastic syndrome), low grade (HCC) IRON W/ IRON BINDING CAPACITY OH Routine 10/26/2024 1:16 PM MINERAL TECHNOLOGIST MDS (myelodysplastic syndrome), low grade (HCC) FERRITIN Routine 10/26/2024 1:16 PM MINERAL TECHNOLOGIST MDS (myelodysplastic syndrome), low grade (HCC) COMPLETE BLOOD COUNT (CBC) WITH DIFF Routine 10/26/2024 1:16 PM MINERAL TECHNOLOGIST MDS (myelodysplastic syndrome), low grade (HCC) CBC WITH AUTO DIFF OH Routine 10/19/2024 11:11 AM MINERAL TECHNOLOGIST MDS (myelodysplastic syndrome), low grade (HCC) CBC WITH AUTO DIFF OH Routine 10/12/2024 8:44 AM MINERAL TECHNOLOGIST Iron deficiency CCS-ACUTE LEUKEMIA PNL (NON-NY) OH B504-2 Routine 10/12/2024 8:10 AM MINERAL TECHNOLOGIST CHROMOSOME ANALYSIS OH 5250-6 Routine 10/12/2024 8:10 AM MINERAL TECHNOLOGIST MDS (myelodysplastic syndrome), low grade (HCC) INTEGRATED HEMATOPATHOLOGY SUMMARY REPORT HL7 OH A023-4 Routine 10/12/2024 8:10 AM MINERAL TECHNOLOGIST ONKOSIGHT ADVANCED NGS MYELOID PANEL Routine 10/12/2024 8:10 AM MINERAL TECHNOLOGIST TWO (2) ANTIBODY OH 5137-5 Routine 10/12/2024 8:10 AM MINERAL TECHNOLOGIST BONE MARROW MORPHOLOGY OH 5199-5 Routine 10/12/2024 8:10 AM MINERAL TECHNOLOGIST MDS (myelodysplastic syndrome), low grade (HCC) COMPLETE BLOOD COUNT (CBC) WITH DIFF Routine 10/05/2024 1:29 PM MINERAL TECHNOLOGIST Pancytopenia (HCC) MDS (myelodysplastic syndrome), low grade (HCC) CMP (COMPREHENSIVE METABOLIC PANEL) Routine 10/05/2024 1:29 PM MINERAL TECHNOLOGIST Pancytopenia (HCC) MDS (myelodysplastic syndrome), low grade (HCC) IRON W/ IRON BINDING CAPACITY OH Routine 10/05/2024 1:29 PM MINERAL TECHNOLOGIST Pancytopenia (HCC) MDS (myelodysplastic syndrome), low grade (HCC) FERRITIN Routine 10/05/2024 1:29 PM MINERAL TECHNOLOGIST Pancytopenia (HCC) MDS (myelodysplastic syndrome), low grade (HCC) COMPLETE BLOOD COUNT (CBC) WITH DIFF Routine 09/28/2024 11:02 AM MINERAL TECHNOLOGIST Pancytopenia (HCC) MDS (myelodysplastic syndrome), low grade (HCC) CMP (COMPREHENSIVE METABOLIC PANEL) Routine 09/21/2024 1:55 PM MINERAL TECHNOLOGIST Pancytopenia (HCC) MDS (myelodysplastic syndrome), low grade (HCC) COMPLETE BLOOD COUNT (CBC) WITH DIFF Routine 09/21/2024 1:55 PM MINERAL TECHNOLOGIST Pancytopenia (HCC) MDS (myelodysplastic syndrome), low grade (HCC) IRON W/ IRON BINDING CAPACITY OH Routine 09/21/2024 1:55 PM MINERAL TECHNOLOGIST Pancytopenia (HCC) MDS (myelodysplastic syndrome), low grade (HCC) FERRITIN Routine 09/21/2024 1:55 PM MINERAL TECHNOLOGIST Pancytopenia (HCC) MDS (myelodysplastic syndrome), low grade (HCC) CBC WITH AUTO DIFF OH Routine 09/07/2024 1:30 PM MINERAL TECHNOLOGIST MDS (myelodysplastic syndrome), low grade (HCC) COMPLETE BLOOD COUNT (CBC) WITH DIFF Routine 08/24/2024 2:05 PM MINERAL TECHNOLOGIST Pancytopenia (HCC) MDS (myelodysplastic syndrome), low grade (HCC) IRON W/ IRON BINDING CAPACITY OH Routine 08/24/2024 2:05 PM MINERAL TECHNOLOGIST Pancytopenia (HCC) MDS (myelodysplastic syndrome), low grade (HCC) RETICULOCYTE COUNT (RETIC) Routine 08/24/2024 2:05 PM MINERAL TECHNOLOGIST Pancytopenia (HCC) MDS (myelodysplastic syndrome), low grade (HCC) FERRITIN Routine 08/24/2024 2:05 PM MINERAL TECHNOLOGIST Pancytopenia (HCC) MDS (myelodysplastic syndrome), low grade (HCC) CBC WITH AUTO DIFF OH Routine 08/10/2024 1:48 PM MINERAL TECHNOLOGIST Pancytopenia (HCC) from Last 3 Months Results * (ABNORMAL) CBC WITH AUTO DIFF OH (11/02/2024 1:05 PM CDT) Only the most recent of5 resultswithin the time period is included. WBC 3.0(L) 4.0 - 10.0 10*3/uL [facility] HGB 9.0(L) 11.2 - 15.7 g/dL [facility] HCT 29.5(L) 34.1 - 44.9 % [facility] PLT 123(L) 163 - 369 10*3/uL [facility] MPV 11.2 9.4 - 12.4 fL [facility] RBC 2.93(L) 3.93 - 5.22 10*6/uL [facility] MCV 101(H) 79 - 95 fL [facility] MCH 30.7 25.6 - 32.2 pg [facility] MCHC 30.5(L) 32.2 - 36.5 g/dL [facility] RDW 17.8(H) 11.6 - 14.4 % [facility] Neutrophils % 59.5 36.0 - 66.0 % [facility] Lymphocytes % 29.8 19.0 - 40.0 % [facility] Monocytes % 7.7 4.1 - 12.1 % [facility] Eosinophils % 2.7 0.0 - 3.5 % [facility] Basophils % 0.3 0.0 - 1.0 % [facility] Absolute Neutrophils 1.8 1.4 - 6.6 10*3/uL [facility] Absolute Lymphocytes 0.9 0.8 - 4.0 10*3/uL [facility] Absolute Monocytes 0.2 0.2 - 1.2 10*3/uL [facility] Absolute Eosinophils 0.1 0.0 - 0.4 10*3/uL [facility] Absolute Basophils 0.0 0.0 - 0.1 10*3/uL [facility] 11/02/2024 1:05 PM CDT Renetta Urbina LANGUAGE ASST, CRITICAL CARE NURSE SPECIALIST LAB SEND OUTS Final Result Performing Organization Address [facility]/ZIP Co de Phone Number [facility] [place] [address], * IRON W/ IRON BINDING CAPACITY OH (10/26/2024 1:16 PM MINERAL TECHNOLOGIST) Only the most recent of4 resultswithin the time period is included. IRON 54 50 - 212 ug/dL [facility] RE[facility]ER[facility] UIBC 208 155 - 355 ug/dL [facility] REFRIGERATING [facility] TIBC 262 261 - 478 ug/dl [facility] RE[facility]IGERATING [facility] % Saturation 21 20 - 50 % [facility] 10/26/2024 1:16 PM MINERAL TECHNOLOGIST Narrative [facility] RE[facility]ER[facility] - 10/26/2024 1:54 PM MINERAL TECHNOLOGIST Release to patient->Immediate us Jordi Olguin MD LAB SEND OUTS Final Result Performing Organization Address [facility] Co de Phone Number [facility] RE[facility]ERATING [facility] [place] [address], * FERRITIN (10/26/2024 1:16 PM MINERAL TECHNOLOGIST) Only the most recent of4 resultswithin the time period is included. Ferritin 118 11 - 307 ng/mL [facility] Blood 10/26/2024 1:16 PM MINERAL TECHNOLOGIST Narrative [facility] RE[facility]IGERATING [facility] - 10/27/2024 2:09 PM MINERAL TECHNOLOGIST Release to patient->Immediate us Jordi Olguin MD CHEMISTRY ORDERABLES Final R esult [facility] [place] [address], [place] [phone] * (ABNORMAL) COMPLETE BLOOD COUNT (CBC) WITH DIFF (10/26/2024 1:16 PM MINERAL TECHNOLOGIST) Only the most recent of5 resultswithin the time period is included. WBC 2.3(L) 4.0 - 10.0 10*3/uL [facility] HGB 6.6(LL) 11.2 - 15.7 g/dL [facility] Comment: Critical Result reported to Ghazal King on 10/26/2024 13:28 by Nathanael Hansen. Results were read back to caller. HCT 22.3(L) 34.1 - 44.9 % [facility] PLT 109(L) 163 - 369 10*3/uL [facility] MPV 11.3 9.4 - 12.4 fL [facility] RBC 2.16(L) 3.93 - 5.22 10*6/uL [facility] MCV 103(H) 79 - 95 fL [facility] MCH 30.6 25.6 - 32.2 pg [facility] MCHC 29.6(L) 32.2 - 36.5 g/dL [facility] RDW 20.7(H) 11.6 - 14.4 % [facility] Absolute Neutrophil Count 1,548 cells/uL [facility] Absolute Seg Count 1,548 1,440 - 6,600 cells/uL [facility] Absolute Lymph Count 624(L) 760 - 4,000 cells/uL [facility] Absolute [place] Count 69(L) 160 - 1,200 cells/uL [facility] Absolute Eos Count 69 0 - 300 cells/uL [facility] Segmented Neutrophils 67(H) 36 - 66 % [facility] Lymphocytes 27 19 - 40 % [facility] Monocytes 3(L) 4 - 12 % [facility] Eosinophils 3 0 - 3 % [facility] WBC Estimate Low [facility] Platelet Estimate Low [facility] RBC Morphology Abnormal [facility] REFRIGERATING MACHINE [facility] Macrocytosis 1+ [facility] Anisocytosis 2+ [facility] Blood 10/26/2024 1:16 PM MINERAL TECHNOLOGIST Narrative [facility] - 10/27/2024 11:46 AM MINERAL TECHNOLOGIST Release to patient->Immediate us Jordi Olguin MD HEMATOLOGY ORDERABLES Final Result [facility] [place] [address], * (ABNORMAL) [employer] ADVANCED NGS MYELOID PANEL (10/12/2024 8:10 AM MINERAL TECHNOLOGIST) [facility] [employer] NGS MYELOID PANEL, [place] TL95-4 ABNORMAL (A) [facility]ATING [facility] Comment: [employer]. Advanced NGS Myeloid Panel Final Report - RESULT SUMMARY: ABNORMAL - DETECTED GENOMIC ALTERATIONS: - Tier II: Variants of Potential Clinical Significance TET2 [id number] DNMT3A p.? Tier III: Variants of Unknown Clinical Significance DNMT3A [id number] - TUMOR TYPE: Myelodysplastic Neoplasm - CLINICAL INFORMATION: Reported a clinical history of pancytopenia and MDS. Concurrent bone marrow morphology analysis showed hypercellular for age bone marrow with maturing trilineage hematopoiesis, erythroid hyperplasia with dyserythropoiesis, megakaryocytes adequate in number with focal cytologic atypia, and no increase in blasts. The overall bone marrow findings were compatible with a history of myelodysplastic neoplasm with low blasts (MDS-LB, #[id number]). - PERTINENT NEGATIVE RESULTS: The following genes are NEGATIVE for clinically relevant mutations. Mutational hotspots and surrounding exonic regions were interrogated for DNA level point mutations and indels (fusions not assayed). ABL1, ANKRD26, ASXL1, ATRX, BCOR, BCORL1, BRAF, CALR, CBL, CCND2, CDKN2A, CEBPA, CSF3R, CUX1, DDX41, ETNK1, ETV6, EZH2, FBXW7, FLT3, GATA2, HRAS, IDH1, IDH2, JAK2, KDM6A, KIT, KMT2A, KRAS, MAP2K1, MPL, MYD88, NF1, NPM1, NRAS, PDGFRA, PHF6, PTEN, PTPN11, RUNX1, SETBP1, SF3B1, SRSF2, STAG2, TP53, U2AF1, WT1, ZRSR2 - MUTATIONAL HOTSPOTS: The following recurrently mutated codons demonstrated adequate sequencing coverage depths and show wild type sequences only. Gene: ABL1 Codons: 235, 244, 250, 252, 253, 255, 299, 311, 315, 317, 351, 359, 396 Gene: ASXL1 Codons: 635, 646 Gene: BCOR Codons: 1459 Gene: BRAF Codons: 581, 594, 597, 600, 601 Gene: CALR Codons: 367, 385 Gene: CBL Codons: 420 Gene: CSF3R Codons: 618 Gene: DNMT3A Codons: 882 Gene: EZH2 Codons: 646 Gene: FLT3 Codons: 835 Gene: HRAS Codons: 12, 13, 61 Gene: IDH1 Codons: 132 Gene: IDH2 Codons: 140, 172 Gene: JAK2 Codons: 533, 534, 535, 536, 537, 538, 539, 540, 541, 542, 543, 544, 545, 546, 547, 617 Gene: KIT Codons: 557, 559, 560, 576, 642, 816, 820, 822 Gene: KRAS Codons: 12, 13, 59, 60, 61 Gene: MPL Codons: 515 Gene: MYD88 Codons: 265 Gene: NPM1 Codons: 288 Gene: NRAS Codons: 12, 13, 61 Gene: PTEN Codons: 92, 93, 130, 132, 136, 212, 233 Gene: PTPN11 Codons: 61, 69, 72, 76, 503, 510 Gene: SETBP1 Codons: 868, 870 Gene: SF3B1 Codons: 623, 666, 700, 741 Gene: SRSF2 Codons: 95 Gene: TP53 Codons: 175, 213, 245, 248, 273, 282 Gene: U2AF1 Codons: 34, 157 The following recurrently mutated codons demonstrated inadequate sequencing coverage depths (<100x), and the possibility of undersensitive detection cannot be excluded. Not Applicable - TRANSCRIPT ACCESSIONS FOR INTERROGATED GENES: Gene: ABL1 Transcript ID: [id number] Gene: ANKRD26 Transcript ID: [id number] Gene: ASXL1 Transcript ID: [id number] Gene: ATRX Transcript ID: [id number] Gene: BCOR Transcript ID: [id number] Gene: BCORL1 Transcript ID: [id number] Gene: BRAF Transcript ID: [id number] Gene: CALR Transcript ID: [id number] Gene: CBL Transcript ID: [id number] Gene: CCND2 Transcript ID: [id number] Gene: CDKN2A Transcript ID: [id number] Gene: CEBPA Transcript ID: [id number] Gene: CSF3R Transcript ID: NM_000760.3 Gene: CUX1 Transcript ID: NM_001913.4 Gene: DDX41 Transcript ID: NM_016222.2 Gene: DNMT3A Transcript ID: NM_022552.4 Gene: ETNK1 Transcript ID: NM_018638.4 Gene: ETV6 Transcript ID: NM_001987.4 Gene: EZH2 Transcript ID: NM_004456.4 Gene: FBXW7 Transcript ID: NM_033632.3 Gene: FLT3 Transcript ID: NM_004119.2 Gene: GATA2 Transcript ID: NM_032638.4 Gene: HRAS Transcript ID: NM_005343.2 Gene: IDH1 Transcript ID: NM_005896.3 Gene: IDH2 Transcript ID: NM_002168.3 Gene: JAK2 Transcript ID: NM_004972.3 Gene: KDM6A Transcript ID: [id number] Gene: KIT Transcript ID: NM_000222.2 Gene: KMT2A Transcript ID: NM_005933.3 Gene: KRAS Transcript ID: NM_033360.3 Gene: MAP2K1 Transcript ID: NM_002755.3 Gene: MPL Transcript ID: NM_005373.2 Gene: MYD88 Transcript ID: NM_002468.4 Gene: NF1 Transcript ID: [id number] Gene: NPM1 Transcript ID: NM_002520.6 Gene: NRAS Transcript ID: NM_002524.4 Gene: PDGFRA Transcript ID: NM_006206.4 Gene: PHF6 Transcript ID: [id number] Gene: PTEN Transcript ID: NM_000314.4 Gene: PTPN11 Transcript ID: NM_002834.3 Gene: RUNX1 Transcript ID: NM_001754.4 Gene: SETBP1 Transcript ID: NM_015559.2 Gene: SF3B1 Transcript ID: NM_012433.2 Gene: SRSF2 Transcript ID: NM_003016.4 Gene: STAG2 Transcript ID: NM_006603.4 Gene: TET2 Transcript ID: NM_017628.4 Gene: TP53 Transcript ID: NM_000546.5 Gene: U2AF1 Transcript ID: NM_006758.2 Gene: WT1 Transcript ID: NM_024426.4 Gene: ZRSR2 Transcript ID: NM_005089.3 - COVERAGE DEPTHS: Among the following targeted exons, >50% of coding sequences failed to achieve >100x coverage depths. Analytic sensitivity for potentially relevant genomic alterations may therefore be limited among the following interrogated loci: Not Applicable THERAPEUTIC ASSOCIATIONS AND PROGNOSTIC ASSOCIATIONS, O SEE BELOW [facility] Comment: PROGNOSTIC ASSOCIATIONS: Gene: DNMT3A Alteration: p.? - Associated with Increased Risk of Leukemic Transformation and Decreased Overall Survival Disease Association: Myelodysplastic Syndromes INTERPRETATION SUMMARY, [place] 939976-0 SEE BELOW(A) [facility] Comment: INTERPRETATION SUMMARY: - It should be noted that this patient has had one or more additional NGS studies. The most recent study showed the following mutation(s): TET2 p.Foi733Gnk (33%) and DNMT3A p.? (36%). Please see the previous OnkoSightAdvanced NGS Myeloid Report, Collection Date: May 11, 2024, Specimen ID: [id number]. Presence of 2 pathogenic mutations each exhibiting >10% variant allele frequency has been shown in some studies to be positively predictive for involvement by myelodysplasia (NCCN Guidelines, Myelodysplastic Syndromes, Version 2.2024; 93992668). In the absence of overt morphologic dysplasia or other disease-defining ancillary data, clonal cytopenias of undetermined significance (CCUS) or clonal hematopoiesis of indeterminate potential (CHIP) may also be considered. Correlation with morphologic features and other clinical and laboratory parameters will be required to further assess the significance of the present study results.ar. A mutation in TET2 (p.Zze664Jyr) was detected in this patients sample. Mutations in TET2 are common in myelodysplastic syndromes (MDS) and other clonal myeloid neoplasms (NCCN Guidelines, Myelodysplastic Syndromes, Version 2.2025). TET2 mutations are also common and recurrent in age-related clonal hematopoiesis of indeterminate potential (CHIP), and isolated TET2 mutations should not be utilized as sole presumptive evidence of overt involvement by myelodysplasia (NCCN Guidelines, Myelodysplastic Syndromes, Version 2.2025; 73684155; 32098353; 62377436). TET2 mutations may be predictive of improved responses to hypomethylating agents (e.g. Azacytidine), according to some studies (44346268; 91421998; (NCCN Guidelines, Myelodysplastic Syndromes, Version 2.2025)). A mutation in DNMT3A (p.?) was detected in this patients sample. DNMT3A mutations are frequently seen in myelodysplastic syndromes (MDS) and are also seen in other myeloid disorders. Of note, DNMT3A mutations may also be seen in the setting of age related clonal hematopoiesis of indeterminate potential (CHIP) (NCCN Guidelines, Myelodysplastic Syndromes, Version 2.2025; 14237096; 65943559; 64275427). In cases of confirmed MDS, DNMT3A mutations may be associated with inferior clinical outcomes including risk of transformation to acute myeloid leukemia (AML) and inferior overall prognosis (86840398; NCCN Guidelines, Myelodysplastic Syndromes, Version 2.2025). An unclear variant in DNMT3A (p.Add263Lbs) was detected in this patients sample. This variant has been reported in a limited number of tumor samples (COSMIC) and has not been reported as a population variant in publicly available databases (gnomAD). Therefore, due to the paucity of functional and clinical evidence, its significance is currently unclear. Clinical and pathologic correlation is required to interpret these findings. ALLELE FREQUENCIES SEE BELOW [facility] Comment: ALLELE FREQUENCIES: ,05/11/2024,10/12/2024 DNMT3A p.?,35.68,36.16 TET2 p.R847Omv,32.94,32.04 DNMT3A p.I310T,0.0,3.01 DETAILED GENETIC INTERPRETATION, [place] 792882-[address] 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 The introduction of a stop codon at this position results in a truncated form of the protein. This mutation occurs N-terminal to the catalytic core of the protein ([id number]). TET2 nonsense mutations in the N-terminal region leading to a truncated protein with a loss of a TET2 catalytic domain have been described across a range of hematological malignancies (30144900; 90628987). The TET2 gene (Tet methylcytosine dioxygenase 2) is located on chromosome 4q24. The gene encodes an epigenetic modifier involved in myelopoiesis. TET2 is frequently deleted or mutated in myeloid malignancies, including acute myeloid leukemia (AML), myelodysplastic syndrome (MDS), myeloproliferative neoplasms (MPN), and other tumor types (06329413; 26776368). Most TET2 variants are heterozygous nonsense, frameshift and missense variants that occur throughout the gene and result in loss of function, with homozygous and hemizygous variants also reported (95051098; 26150564). The prognostic impact of somatic TET2 variants remains under investigation, with some studies showing association with worse prognosis in some AML subgroups (e.g. intermediate-risk or karyotypically normal AML cases), while other studies showing no impact on survival in AML and other myeloid neoplasms ([id number]; 43764253; 53393525; 10313703). - Genomic Alteration: DNMT3A p.? c.1667+1G>A Allele frequency: 36% allele frequency Exon: 14 Transcript : [id number] Interpretation: This variant, c.1667+1G>A (p.?), represents a splice site mutation disrupting the normal splice site downstream of exon 14 of DNMT3A. Disruption of this consensus sequence may result in an altered transcript impacting the wild type protein sequence. Without analyzing the transcript RNA, the exact impact on protein expression or protein structure is unknown. The DNMT3A gene (DNA (Cytosine-5-)-methyltransferase 3 alpha) is located on chromosome 2p23.3 and encodes an epigenetic modifier involved in de astrid DNA methylation and in hematopoietic stem cell differentiation. Most common somatic DNMT3A variations are missense variations that target amino acid R882 in the methyltransferase domain and affect catalytic activity and DNA binding, with other missense, nonsense and frameshift variations occurring throughout the gene (48498826; 35739081). DNMT3A variations have been reported in myelodysplastic syndrome (MDS), acute myeloid leukemia (AML) and myeloproliferative neoplasms (MPN), associated with poor prognosis in subsets of MDS and AML, dependent on the clinical and molecular context (66344976; 03773885; 27200240). - Genomic Alteration: DNMT3A p.Zdq286Esy c.929T>C Allele frequency: 3% allele frequency Exon: 8 Transcript : [id number] Interpretation: p.Ehw342Anq represents a missense variant in exon 8 of DNMT3A at amino acid 310 converting the wild type residue, Isoleucine, into a Threonine This variant has been reported in a limited number of tumor samples (COSMIC) and has not been reported as a population variant in publicly available databases (gnomAD). Therefore, due to the paucity of functional and clinical evidence, its significance is currently unclear. The DNMT3A gene (DNA (Cytosine-5-)-methyltransferase 3 alpha) is located on chromosome 2p23.3 and encodes an epigenetic modifier involved in de astrid DNA methylation and in hematopoietic stem cell differentiation. Most common somatic DNMT3A variations are missense variations that target amino acid R882 in the methyltransferase domain and affect catalytic activity and DNA binding, with other missense, nonsense and frameshift variations occurring throughout the gene (88779632; 20489827). DNMT3A variations have been reported in myelodysplastic syndrome (MDS), acute myeloid leukemia (AML) and myeloproliferative neoplasms (MPN), associated with poor prognosis in subsets of MDS and AML, dependent on the clinical and molecular context (69073575; 37321023; 94473091). TECHNICAL [place], [place] 125592-6 SEE BELOW [facility] Comment: TECHNICAL SUMMARY: Specimen Source: Bone Marrow - Gene: TET2 Alteration: p.Pup338Avb Variant Category: Disease Associated Chr: 4 Pos: [id number] Ref: C Alt: T Coverage: 362 Allele Freq: 32.04 cDNA change: c.1441C>T Exon: 3 ClinVar ID: - Gene: DNMT3A Alteration: p.? Variant Category: Disease Associated Chr: 2 Pos: [id number] Ref: C Alt: T Coverage: 1380 Allele Freq: 36.16 cDNA change: c.1667+1G>A Exon: 14 ClinVar ID: - Gene: DNMT3A Alteration: p.Xhu214Xar Variant Category: Unclear Variant Chr: 2 Pos: [id number] Ref: A Alt: G Coverage: 465 Allele Freq: 3.01 cDNA change: c.929T>C Exon: 8 ClinVar ID: [place], [place] [id number] SEE BELOW [facility] Comment: METHODS: Tissue macrodissection and DNA isolation from tumor enriched areas are based on histologic review by an appropriately board certified pathologist; specimens with minimal tumor cellularity may be rejected. Nucleic acid is isolated from the submitted specimen. Anchored Multiplex PCR (AMP) is performed to generate target-enriched next generation sequencing (NGS) libraries. AMP utilizes unidirectional gene-specific primer (GSP) oligonucleotides that enrich for both known and unknown mutations. Each genomic DNA fragment is also tagged with a unique molecular identifier sequence (YENNI), used after sequencing on an Illumina Uevoc instrument ([place], [place]) with paired end, 151 base pair reads to collapse PCR duplicates and enable accurate counting of variant allelic frequencies. A minimum number of 100 unique reads (after removal of PCR duplicates) to detect a mutation is required. An automated process that takes into account statistical confidence of base calling and alignment and mapping quality identifies variants (Webtogs Analysis Software version 6.2.7, Released 20 Jan 2020). Following mapping of the read data to the human genome (reference build [id number]), single nucleotide variants (SNVs), and insertion deletion events (Indels) with an allele frequency (AF) greater than 2% are detected utilizing Wave[employer] Analysis bioinformatic analytical pipeline with the exception of FLT3 (0.8% AF), JAK2 p.V617F (0.8% AF) and MYD88 p.L265P (1% AF). Detection of Insertions larger than 63 bases have not been validated. Detection of Deletions larger than 52 bases have not been validated. Reported variants include known disease associated mutations and unclear variants with little or no literature support. Benign population polymorphisms are not included in the report. For low level FLT3 internal tandem duplication (ITD) and/or FLT3 tyrosine kinase domain (TKD) variant(s) orthogonal polymerase chain reaction (PCR) testing confirmations, a multiplex PCR is performed followed by digestion with a restriction endonuclease. Products are by capillary electrophoresis using an LISA Genetic Analyzer ([employer], [place], [place]) and data was analyzed with [employer] 6. The FLT3-ITD mutation status is determined by calculating the allele ratio (AR) as the ratio of the area under the curve of mutant to wild type alleles. The FLT3-TKD mutation status is determined by calculating the variant allele frequency (VAF) as a percentage of mutant alleles to mutant and wild type alleles. The limit of detection is 0.07 AR and 5% VAF for FLT3-ITD and FLT3-TKD (D835, I836) variants, respectively. The mutation hotspots of the following genes were interrogated by this test: ABL1, ANKRD26, ASXL1, ATRX, BCOR, BCORL1, BRAF, CALR, CBL, CCND2, CDKN2A, CEBPA, CSF3R, CUX1, DDX41, DNMT3A,ETNK1, ETV6, EZH2, FBXW7, FLT3, GATA2, HRAS, IDH1, IDH2, JAK2 (inclusive of V617F & exon 12), KDM6A, KIT, KMT2A, KRAS, MAP2K1, MPL, MYD88, NF1, NPM1, NRAS, PDGFRA, PHF6, PTEN, PTPN11, RUNX1, SETBP1, SF3B1, SRSF2, STAG2, TET2, TP53, U2AF1, WT1, ZRSR2.Variant Tier categorization is rendered in accordance with the AMP/ASCO/CAP consensus recommendations (see Li et al. Standards and Guidelines for the Interpretation and Reporting of Sequence Variants in Cancer: A Joint Consensus Recommendation of the Association for Molecular Pathology, [place] Society of Clinical Oncology, and College of [place] Pathologists. The Journal of molecular diagnostics: JMD. 2017 Aug;19(1):4-23. doi: 10.1016/j.jmoldx.2016.10.002. PubMed Central PMCID: [id number]. PubMed PMID: (94791477)). OnkoSightAdvanced was developed and its performance characteristics were determined by [employer], a division of [employer]. This test has not been cleared or approved by the [place] Food and Drug Administration (FDA). The FDA has determined that such a clearance or approval is not necessary. Pursuant to the requirements of CLIA'88, this laboratory has established and verified the tests accuracy and precision. However, a false positive or false negative result incurred during any phase of the testing cannot be completely excluded. Large insertion/deletion (eg. FLT3-ITD aberrations) may not be detected by this assay due to the limit of sequencing read length and bioinformatics processing. This assay does not detect translocation/gene fusion. This assay does not determine variant causality, or whether a variant is inherited or somatically acquired. These results may be used for clinical or research purposes and therefore should be carefully considered within the context of other clinical and laboratory data. In the absence of an appropriate clinical context, the clinical utility of OnkoSighttesting is not clearly defined. The information contained in this report reflects the current interpretation of the findings as of the date of the report, based on the available scientific information. This information, which comes from numerous sources, is subject to warp changer time in response to future scientific and medical findings and correlations. [employer]. makes no representation or warranty of any kind regarding the accuracy of information provided or contained in these manuscripts, references or other sources of information. If any of the information provided by or contained in the referenced material is later deemed to be inaccurate, this may impact the accuracy of this report and interpretation of the findings. [facility] is not obligated to notify you of any impact that additional or modified information, or future scientific or medical research may have on this report. The laboratory is not responsible for reanalysis of the data or updated classification of this report or past reportsfindings as the knowledge evolves. A medical provider can request a reassessment of clinical significance of variants and/or re-review of the clinical interpretation of the findings. Additional charges may apply for the updated report. Please contact the laboratory for more information if update is requested. This assay has been approved by the [facility] based on initial validation; orthogonal testing for full validation is currently ongoing. Please contact the laboratory for more information if update is requested. [place], [place] 822314-3 SEE BELOW [facility] Comment: REFERENCES: 1. Jennifer MM, Lamar M, Shirley EJ, Kendrick S, Deion NI, Maximino S, Donato AM, Cristina CL, Aime DJ, Charles A, Jyoti MN. Standards and Guidelines for the Interpretation and Reporting of Sequence Variants in Cancer: A Joint Consensus Recommendation of the Association for Molecular Pathology, [place] Society of Clinical Oncology, and College of [place] Pathologists. The Journal of molecular diagnostics : JMD. 2017 Aug;19(1):4-23. doi: 10.1016/j.jmoldx.2016.10.002. PubMed PMID: 97228275. PubMed Central PMCID: [id number]. 2. Genome Aggregation Database (gnomAD), [place], [place] (URL: https://gnomad.broadElliptictitute.org) [September,] 3. Catalogue of Somatic Mutations in Cancer (COSMIC), (URL: http://cancer.bindu.ac.uk/cosmic) [September,] 4. Cara , Nemesio P, Angel D, Luis Alfredo M, Jhon CH, Juan U, von Med M, Mahesh G, Paxton LUA, Julianne D, Sharri Armas, Andres K, Kavita H, Luis MACK, Kaylie Nobles, Kavita K. 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 Journal of clinical oncology : official journal of the [place] Society of Clinical Oncology. 2011Dec 13;30(12):1350-7. Epub 2011Nov 11. doi: 10.1200/JCO.2010.39.2886. PubMed PMID: 45337189. 5. Magi SM, Suzie RP, Bercolby M, Kned R, Augustus MG, Kitty M, Ar-Gordo E, van Carloz P, van Parmjit AG, Rebecca RA, Rachel EJ, Verhoef GE, Verburgh E, Chader A, Vandenberghe P, de Fabienne T, van daniela Reijden BA, Ky JH. Acquired mutations in TET2 are common in myelodysplastic syndromes. Nature genetics. 2009 Jose M;41(7):838-42. Epub 2008January 23. doi: 10.1038/ng.391. PubMed PMID: 22004010. 6. Kimberlyn Robles, Etta PATRICIO, Thomas S, Anastasia H, Koki K, Wilian K, Gerardo PEREZ, Mary Grace J, Mayra D, Oscar SP, Dane NyZ, Jossue BL, Nikolas TH, Malinda JE, Saniya Armas, Larry SILVA, Anthony MR, Tony CRAWFORD, Adrian MA, Blaine RA, Adina CD. Age-related prognostic impact of different types of DNMT3A mutations in adults with primary cytogenetically normal acute myeloid leukemia. Journal of clinical oncology : official journal of the [place] Society of Clinical Oncology. 2011Oct 24;30(7):742-50. Epub 2011Sep 24. doi: 10.1200/JCO.2010.39.2092. PubMed PMID: 97494036. PubMed Central PMCID: [id number]. 7. Humphrey ROOPA, Leeann M, Sam ME, Willi H, Marylin Z, Santiago J, Van Fausto P, Doljesusev I, Anupam S, Aminotyra O, Merissa K, Bhavik J, Gabby A, Denys ND, Manish A, Taylor A, Shivam G, Hong RR, Aracely RP, Kadeem RE, Ai M, van dominic Morris MR, David HM, Vishnu JM, Karson S, Reuben A, Alexis E, Ruslan MS, Betsy A, Jayleen-Teressa O, Luz RL. Prognostic relevance of integrated genetic profiling in acute myeloid leukemia. The [place] journal of medicine. 2011Nov 14;366(12):1079-89. Epub 2011Nov 06. doi: 10.1056/DPFCpq3242733. PubMed PMID: 06511981. PubMed Central PMCID: [id number]. 8. Salima F, Krystina S, Jenise Alyce V, Parveen C, Willow S, Cl Martinez O, Collette Santiago ROOPA, Corky F, Sharmila A, Lcluse Y, Plo I, Dar FJ, Feliberto C, Casadecorinal N, [place] C, Zamzam SP, Dessen P, Gertrudeer J, GeronimoF, Mahnaz M, Faith W, Doug OA. Mutation in TET2 in myeloid cancers. The [place] journal of medicine. 2008January 20;360(22):2289-301. doi: 10.1056/SLFNap6925728. PubMed PMID: 23093979. 9. Isrrael Muniz, Nabil KE, Yuan DOBSON, Doni Gunderson, Ren DP, Kim N, Gianni A, Nelda H, Luz LIGHT, Ayan D, Ayush-Iwona G, Anamaria BL. Validation of a prognostic model and the impact of mutations in patients with lower-risk myelodysplastic syndromes. Journal of clinical oncology : official journal of the [place] Society of Clinical Oncology. 2011May 15;30(27):3376-82. Epub 2011Mar 31. doi: 10.1200/JCO.2010.40.7379. PubMed PMID: 36227198. PubMed Central PMCID: [id number]. 10. Stone H, Huy H. TET2 as an epigenetic master regulator for normal and malignant hematopoiesis. Cancer science. 2014 Apr;105(9):1093-9. Epub 2013Apr 28. doi: 10.1111/shruti.91946. PubMed PMID: 81609459. PubMed Central PMCID: BOQ3307696. 11. Jj LOUIS, Doni Gunderson, Humphrey ROOPA, Luz LIGHT. The role of mutations in epigenetic regulators in myeloid malignancies. Nature reviews. Cancer. 2012 Apr;12(9):599-612. Epub 2011Apr 11. doi: 10.1038/lth6961. PubMed PMID: 54230967. 12. Doni Reyna Levine RL, Valentine Wright. TET family proteins and their role in stem cell differentiation and transformation. Cell stem cell. 2010Apr 27;9(3):193-204. doi: 10.1016/j.stem.2011.08.007. PubMed PMID: 10213481. PubMed Central PMCID: AGP1530574. 13. Lesley F, Austen B, Lilli F, Allen M, Tita G, Schlegelberger B, Kralorenza J, Hezer M, Doug OA, Stephen A. TET2 mutations in cytogenetically normal acute myeloid leukemia: clinical implications and evolutionary patterns. Genes, chromosomes & cancer. 2014 May;53(10):824-32. Epub 2013Jan 28. doi: 10.1002/gcc.88532. PubMed PMID: 98334298. 14. Jennifer KK, Bijan LF, Scott Y, Alonso J, Garibay Z, Garibay SJ. DNA methyltransferases in hematologic malignancies. Seminars in hematology. 2013 Aug;50(1):48-60. doi: 10.1053/j.seminhematol.2013005. PubMed PMID: 39164479. 15. Mecca GIBBONS, River Nobles, Mahesh ADAMS, Nadir PEREZ, Rory T, Blaine DE, Jacinta C, Keerthi JE, Anant J, Juarez J, Brice CC, Lili CF, Marcie RR, Fernanda RS, Lamin DJ, Brenda GORDON, Prashant H, Jules Q, Michelle JR, Jessica L, O'Alana M, Antonio JF, Maribeth KD, Mihai SD, Fernanda LA, Bruce MariaJ, Beatriz TL, Rosalba J, Martinez LL, Lisa VargasJ, Eileen GW, Perico ROOPA, Kelly PA, Jose David T, Robert J, Evelia J, Bo MA, Justo S, Suellen WD, Ronny N, Winston R, Danisha P, Jason MH, Sid DC, Janna TA, Jose JF, Alejandro ER, Oscar RK. 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 The [place] journal of medicine. 2010 Aug 10;363(25):2424-33. Epub 2009Jul 05. doi: 10.1056/RKSIhj1240580. PubMed PMID: 24369717. PubMed Central PMCID: OTR4082973. 16. Caeleazarola M, Jenisebecky Penaa MG, Deepti L. The genetic basis of myelodysplasia and its clinical relevance. Blood. 2013 Aug 06;122(25):4021-34. Epub 2012Jun 11. doi: 10.1182/mjxph-4252-53-280466. PubMed PMID: 92583296. PubMed Central PMCID: JHQ0126305. 17. Raul Nobles, Jennifer Alatorre, Bhavik J, Matthew Q, Katina W, Ramu M, Loreto NyG, Becca Vargas, Bro P, Alonso Y. Crystal structure of TET2-DNA complex: insight into TET-mediated 5mC oxidation. Cell. 2013 Aug 13;155(7):1545-55. Epub 2012Jul 30. doi: 10.1016/j.cell.2013.11.020. PubMed PMID: 94350088. 18. Etta PATRICIO, Koki Catherine, Gerardo PEREZ, Wilian K, Luz D, Anastasia H, Nani J, Scott KB, Thomas S, Oscar SP, Vela YZ, Clari W, Jossue BL, Nikolas TH, Saniya M, Tony YVETTE, Malinda JE, Anthony MR, Larry AJ, Blaine RA, Adrian MAYNARD, Kimberlyn G, Adina CD. TET2 mutations improve the new LeukemiaNet risk classification of acute myeloid leukemia: a Cancer and Leukemia Group B study. Journal of clinical oncology : official journal of the [place] Society of Clinical Oncology. 2010Nov 24;29(10):1373-81. Ep2010Oct 17. doi: 10.1200/JCO.2009.32.7742. PubMed PMID: 09491245. PubMed Central PMCID: [id number]. 19. Matheus S, Maite P, Narciso J, Keshav A, Payam PV, Kaila BG, Mckay RC, Lian CH, Santy N, Rene A, Pitts JM, Molvangie V, Kaci FC, Dexter MJ, Geremias B, Segun L, Geraldine LUA, Martha C, Unique G, Condon A, Seraahan BF, Nikos S, Kathiresan S, Hector HM, Elsie NV, Reinier M, Anilao J, Richard C, Jihan L, Atuyen G, Oscar JG, Neuberg D, Altshchar D, Anamaria BL. Age-related clonal hematopoiesis associated with adverse outcomes. The [place] journal of medicine. 2013Aug 19;371(26):2488-98. Epub 2013Jul 21. doi: 10.1056/IABRla4044702. PubMed PMID: 18983216. PubMed Central PMCID: [id number]. 20. Norberto G, Jessy AK, Baylee RE, Georgi Vargas, Allyson SA, Svetlana SF, Cruzito K, Damon E, Sarahi BM, Rashmi M, Edwards SM, Svhermesson O, Luigi Armas, Dulce Maria M, Tracey S, Nikos SB, Nettie JL, Malorie ES, Bill PF, Diana P, Trav H, Saúl CM, Wiliam SA. Clonal hematopoiesis and blood-cancer risk inferred from blood DNA sequence. The [place] journal of medicine. 2013Aug 19;371(26):2477-87. Epub 2013Jul 21. doi: 10.1056/ISJWhy7628911. PubMed PMID: 97663871. PubMed Central PMCID: XXV2820697. 21. Rufino K, Guanako D, Nora S, Favian R, Ellis CRAWFORD. Implications of Mutation Profiling in Myeloid Malignancies-PART 2: Myeloproliferative Neoplasms and Other Myeloid Malignancies. Oncology ([place] 2018 January 07;32(5):e45-e51. Epub 2017January 07. PubMed PMID: 52744708. 22. NCCN Guidelines, Myelodysplastic Syndromes, Version 2.2024 23. Mahesh ADAMS, River L, Tyler D, Laron J, Sai M, Nadir M, Fernanda R, Prashant H, Erma J, O'Alana M, Jacinta C, Anant J, Danisha P, Jose JF, Alejandro ER, Oscar RK, Mecca GIBBONS, Janna TA. Recurrent DNMT3A mutations in patients with myelodysplastic syndromes. Leukemia. 2011 Feb;25(7):1153-8. Epub 2010Nov 10. doi: 10.1038/ross.2010.44. PubMed PMID: 58870938. PubMed Central PMCID: [id number]. [facility] [place] SEE BELOW CANCER REFRIGERATING MACHINE OPERATOR OF [facility] Comment: Hanna Hall M.D., Manager Property Electronically signed by Brice Barber is a division of [employer] [address] [place] [address] Created SatOct 22 16:34:03 EST 2024 10/12/2024 8:10 AM MINERAL TECHNOLOGIST Narrative [facility] REFR[facility]ER[facility] - 10/22/2024 4:45 PM MINERAL TECHNOLOGIST Testing performed at: [facility]. [facility] [place] [address], Manager Property: Dr. Parveen Hoffman M.D.; PAAY Accn#:[id number] Jordi Olguin MD LAB SEND OUTS Final Result CANCER REFRIGERATING MACHINE OPERATOR OF [facility] [place] [address], * (ABNORMAL) INTEGRATED HEMATOPATHOLOGY SUMMARY REPORT HL7 [place] A023-4 (10/12/2024 8:10 AM MINERAL TECHNOLOGIST) COMP. BONE MARROW REPORT Positive (A) [facility] REFRIGERATING [facility]INE [facility] Clinical Information D46.Z, D61.818 [facility]FR[facility]ERATING [facility] Specimen Comment See Note [facility] REFRIGERATING [facility]ACHINE [facility] Comment: HEPARIN, EDTA, CORE, ASPIRATE, SLIDES DX: PANCYTOPENIA, MDSDIAGNOSIS UNDER CONSIDERATION MDS;PAANCYTOPENIA Diagnosis See Note [facility] Comment: BONE MARROW; ILIAC CREST; CORE BIOPSY, CLOT AND ASPIRATE SMEARS. 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 - Hypercellular for age bone marrow with maturing trilineage hematopoiesis, erythroid hyperplasia with dyserythropoiesis, megakaryocytes adequate in number with focal cytologic atypia, no increase in blasts. - Marrow cellularity: 40-50%; - Number of blasts (blasts equivalents) = 1%; - Iron storage: trace to absent without ring sideroblasts; - Blood CBC: Hgb, 6.3g/dL; plt, 99k/uL; WBC, 3.0k/uL. 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 The translocation t(11;22) identified in this study is a common recurrent constitutional translocation and has been found in a large number of families as a constitutional chromosomal abnormality (see cytogenetics report). Correlation with other relevant clinical and laboratory data is suggested. Morphology See Note(A) [facility] Comment: BONE MARROW; ILIAC CREST; CORE BIOPSY, CLOT AND ASPIRATE SMEARS. - Hypercellular for age bone marrow with maturing trilineage hematopoiesis, erythroid hyperplasia with dyserythropoiesis, megakaryocytes adequate in number with focal cytologic atypia, no increase in blasts. 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 - Marrow cellularity: 40-50%; - Number of blasts (blasts equivalents) = 1%; - Iron storage: trace to absent without ring sideroblasts; - Blood CBC: Hgb, 6.3g/dL; plt, 99k/uL; WBC, 3.0k/uL. - Cytogenetics: pending; - Genotype (NGS): pending; See comments. FLOW CYTOMETRY:FLOW CYTOMETRY ANALYSIS FOR MYELOID/LYMPHOID OH See Note [facility] Comment: Bone marrow aspirate: - Flow cytometric analysis of the bone marrow specimen does not show acute leukemia or increased blasts. - There is no evidence of an abnormal myeloid population. - No evidence of B-cell lymphoma or atypical T-cell population. - No evidence of monocytosis. See comments. ImmunophenotypicAnalysis: Percentage of abnormal cells: -- Cell Size: -- There is a mixed population of granulocytes/maturing myeloid precursors, blasts, monocytes, and lymphocytes. Granulocytes/maturing myeloid precursors (%) do not display overt phenotypic atypia associated with dysmaturation and/or asynchronous shift to the left. No aberrant maturation pattern is noted. CD117+/HLA-DR+ myeloblasts comprise (%) of total events. Myeloid-committed CD34+ population comprise (%) of the total events. Monocytes (%) appear mature without overt phenotypic atypia. The B-cells (%) are polytypic. T-cells (%) show no deletion or abnormal dim expression of frye-T-cell antigens on significant subset of cells. The CD4:CD8 ratio is (:1). The T-LGL cells comprise %. IHC:Myeloid Disorder Immunistochemical Analysis See Note [facility] Comment:No increase in CD34+ blasts or CD117+ immature precursors. 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 They may not be cleared or approved by the U.S. Food and Drug Administration. The FDA has determined that such clearance or approval is not necessary. These results may be used for clinical, investigational or for research purposes, and should be interpreted with other relevant clinicopathologic data. Electronic Signature See Note [facility] Comment: Deanna Carlson M.D. Hematopathologist, ex. [phone] This report was electronically signed. 10/12/2024 8:10 AM MINERAL TECHNOLOGIST Narrative [facility] - 10/26/2024 8:17 PM MINERAL TECHNOLOGIST Testing performed at: [facility] [employer]. [address] [place] [address], Manager Property: Dr. Parveen Hoffman M.D.; [facility] Accn#:[id number] Jordi Olguin MD LAB SEND OUTS Final Result [facility] [place] [address], * TWO (2) ANTIBODY [place] 5137-5 (10/12/2024 8:10 AM MINERAL TECHNOLOGIST) Two (2) Antibody Non-neoplasti c [facility] Comment: INTERPRETATION No increase in CD34+ blasts or CD117+ immature precursors. COMMENT A positive control for each antibody has been reviewed and accepted. Please refer to [facility] bone marrow morphology report. Clinical Information D46.Z, D61.818 [facility]ERATING [facility] Specimen Comment See Note [facility] Comment: HEPARIN, EDTA, CORE, ASPIRATE, SLIDES DX: PANCYTOPENIA, MDSDIAGNOSIS UNDER CONSIDERATION MDS;PAANCYTOPENIA CD34 Rare blasts [facility] Comment: Clone: QBEnd 10 Endothelial and stem cells, GIST, Blasts CD117 Rare immature precursors [facility] REFRIGERATING MACHINE O[facility] Comment: Clone: YR145 c-kit ligand, myeloid and mast cell marker, GIST Disclaimer See Note [facility] Comment: These tests were developed and their performance characteristics determined by [facility]. They may not be cleared or approved by the U.S. Food and Drug Administration. The FDA has determined that such clearance or approval is not necessary. These tests are used for clinical purposes. They should not be regarded as investigational or for research. This laboratory has been approved by [facility], designated as a high-complexity laboratory and is qualified to perform these tests. Associated Tests See Note [facility] Comment: Flow Cytometry Analysis for Myeloid/Lymphoid Disorders and Acute Leukemia released on: 10/14/2024 Bone Marrow Morphology released on: 10/14/2024 OnOpal(TM) Advanced NGS Myeloid Report Cytogenetics Electronic Signature See Note [facility] Comment: Deanna Carlson M.D. Pathologist, ex. [phone] This report was electronically signed. 10/12/2024 8:10 AM MINERAL TECHNOLOGIST Narrative [facility] - 10/15/2024 9:19 AM MINERAL TECHNOLOGIST Testing performed at: [facility]. [address] [place], [place] [address] [address], Manager Property: Dr. Parveen Hoffman M.D.; [facility] Accn#:[id number] Jordi Olguin MD LAB SEND OUTS Final Result [facility]ER REFRIGERATING MACHINE [facility]PERATOR [facility] [address] [place] [address], * CCS-ACUTE LEUKEMIA PNL (NON-[place]) [place] B504-2 (10/12/2024 8:10 AM MINERAL TECHNOLOGIST) ACUTE LEUKEMIA FLOW PC Negative [facility] REFRIGERATING [facility]ACHINE [facility] Comment: INTERPRETATION Bone marrow aspirate: - Flow cytometric analysis of the bone marrow specimen does not show acute leukemia or increased blasts. - There is no evidence of an abnormal myeloid population. - No evidence of B-cell lymphoma or atypical T-cell population. - No evidence of monocytosis. See comments. COMMENT Myeloid neoplasms may not display antigenic variation on the maturing myeloid component, and cannot be excluded by a normal flow cytometry immunophenotype. Please refer to [facility] bone marrow morphology report. CLINICAL INFORMATION: D46.Z, D61.818 DIAGNOSIS CODE(S): D46.Z, D61.818 SPECIMEN COMMENT: HEPARIN, EDTA, CORE, ASPIRATE, SLIDES DX: PANCYTOPENIA, MDSDIAGNOSIS UNDER CONSIDERATION MDS;PAANCYTOPENIA IMMUNOPHENTYPIC ANALYSIS: No Abnormal Cells Present Viability 7AAD: 97.64% There is a mixed population of granulocytes/maturing myeloid precursors, blasts, monocytes, and lymphocytes. Granulocytes/maturing myeloid precursors (%) do not display overt phenotypic atypia associated with dysmaturation and/or asynchronous shift to the left. No aberrant maturation pattern is noted. CD117+/HLA-DR+ myeloblasts comprise (%) of total events. Myeloid-committed CD34+ population comprise (%) of the total events. Monocytes (%) appear mature without overt phenotypic atypia. The B-cells (%) are polytypic. T-cells (%) show no deletion or abnormal dim expression of frye-T-cell antigens on significant subset of cells. The CD4:CD8 ratio is (:1). The T-LGL cells comprise %. DISCLAIMER: Antibodies Analyzed: CD19,CD20,CD22,CD10,CD11c,CD23,FMC7,[place],Lambda,CD2,CD3,CD4,CD5, CD7,CD8,CD56,CD57,CD11b,CD13,CD14,CD16,CD33,CD64,CD34,CD38,CD117, HLA-DR,CD45 - The technical component of Flow Cytometry was performed at [facility] [place], [address] [address]. These tests were developed and their performance characteristics were determined by [facility] They may not be cleared or approved by the U.S. Food and Drug Administration. The FDA has determined that such clearance or approval is not necessary. These results may be used for clinical, investigational or for research purposes, and should be interpreted with other relevant clinicopathologic data. ASSOCIATED TESTS: Bone Marrow Morphology released on: 10/14/2024 OnGeorgiaakilah(TM) Advanced NGS Myeloid Report Cytogenetics Myeloid Disorder Immunohistochemical Analysis released on: 10/14/2024 [employer] SIGNATURE: Deanna Carlson M.D. Hematopathologist, ex. [phone] This report was electronically signed. 10/12/2024 8:10 AM MINERAL TECHNOLOGIST Narrative [facility] REFRIGERATING MACHINE [facility] - 10/15/2024 9:19 AM MINERAL TECHNOLOGIST Testing performed at: [facility]. [address] [place] [address], Manager Property: Dr. Parveen Hoffman M.D.; [facility] Accn#:[id number] Jordi Olguin MD PATHOLOGY/CYTOLOGY ORDERABLE S Final Result [facility]ER REFRIGERATING MACHINE [facility]PER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 Normal cells were not found. - NOTE: translocation t(11;22) was identified in a prior bone marrow specimen (please refer to a prior bone marrow cytogenetic report [id number], 05/11/2024). The translocation t(11;22) identified in this study is a common recurrent constitutional translocation and has been found in a large number of families as a constitutional chromosomal abnormality (not associated with bone marrow disease). However a bone marrow disease-associated clone cannot be excluded. Follow-up bone marrow studies and cytogenetic performed on peripheral blood are recommended. - NOTE: the possibility of a constitutional translocation (11;22) identified in this specimen could be evaluated by cytogenetic analysis of a peripheral blood specimen (in the absence of leukemia or increased white blood cells, please send 5ml whole blood in green-top sodium Heparin tube and mention as clinical indication oncology chromosome analysis 5[address] [facility] study follow-up of abnormal BM cytogenetics findings). 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 Comment: HEPARIN, EDTA, CORE, ASPIRATE, SLIDES DX: PANCYTOPENIA, MDSDIAGNOSIS UNDER CONSIDERATION MDS;PAANCYTOPENIA Karyotype 46,XX,t( 11;22)(q 23;q11.2 )?c[20]( A) [facility]FRIGER[facility] Metaphases Counted 20 C [facility]FRIGERATING MACH[facility]ATOR [facility] Metaphases Analyzed 20 [facility]FR[facility] Metaphases Karyotyped 3 [facility]ENTER[facility]FR[facility]ER[facility] M[facility] GTG Band Level 400 [facility]FRIGER[facility] Culture Type(s) 24hrU CAN ER REFRIGERATING MACHINE OPERATOR [facility] Comment: REFERENCES: Ispriti L, Natasha J, Tano A, Frafelishaaro M, Leora C, Cristina AM, Jasper TH, Shahzad D, Sebastian L, Hunter N, et al. The 11q;22q translocation: a collaborative study of 20 new cases and analysis of 110 families. Hum Radha. 1983;64(4):343-55. - Alejandrina H, Shavonne H, Ministerio T, Ken H, Tswinnie M, Huan T, Tal Armas, Juan Antonio BS. The constitutional t(11;22): implications for a novel mechanism responsible for gross chromosomal rearrangements. Clin Radha. 2010 May;78(4):299-309. - Iftikhar LIN, Juan Antonio BS. Site-specific reciprocal translocation, t(11;22) (q23;q11), in several unrelated families with 3:1 meiotic disjunction. Am J Med Radha. 1980;7(4):507-21. DISCLAIMER: Due to the limits of this technology, the presence of low level mosaicism and/or subtle chromosome abnormalities cannot be completely excluded. This test was developed and its performance characteristics were determined by [facility] It has not been cleared or approved by the FDA. The FDA has determined that such clearance or approval is not necessary. This laboratory is regulated under CLIA as qualified to perform high-complexity testing. This test is used for clinical purposes. The test results should be interpreted with other relevant clinicopathologic data. ASSOCIATED TESTS: Flow Cytometry Analysis for Myeloid/Lymphoid Disorders and Acute Leukemia released on: 10/14/2024 Bone Marrow Morphology released on: 10/14/2024 Estefania(TM) Advanced NGS Myeloid Report Myeloid Disorder Immunohistochemical Analysis released on: 10/14/2024 ELECTRONIC SIGNATURE: Vaughn Gupta, PhD, FACMG Director, Cancer Cytogenetics This report was electronically signed. 10/12/2024 8:10 AM MINERAL TECHNOLOGIST Narrative [facility] - 10/16/2024 3:16 PM MINERAL TECHNOLOGIST Testing performed at: [facility]. [address] [place] [address], Manager Property: Dr. Parveen Hoffman M.D.; [facility] Accn#:[id number] Release to patient->Immediate us Jordi Olguin MD PATHOLOGY/CYTOLOGY ORDERABLE S Final Result Performing Organization Address City/State/[facility] Co de Phone Number CANCER REFRIGERATING MACHINE [facility]PER[facility] [place] [address], * (ABNORMAL) BONE MARROW MORPHOLOGY [place] 5199-5 (10/12/2024 8:10 AM MINERAL TECHNOLOGIST) BONE MARROW ANALYSIS Positive (A) [facility] REFRIGERATING MACHINE [facility] Comment: COMMENT Correlation with pending genetic studies and other relevant clinical and laboratory data is suggested for further characterization. Clinical Information D46.Z, D61.818 [facility] REFRIGERATING MACHINE [facility] Diagnosis Code(s) D46.Z, D61.818 [facility] Diagnosis See Note [facility] Comment: BONE MARROW; ILIAC CREST; CORE BIOPSY, CLOT AND ASPIRATE SMEARS. - Hypercellular for age bone marrow with maturing trilineage hematopoiesis, erythroid hyperplasia with dyserythropoiesis, megakaryocytes adequate in number with focal cytologic atypia, no increase in blasts. 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 - Marrow cellularity: 40-50%; - Number of blasts (blasts equivalents) = 1%; - Iron storage: trace to absent without ring sideroblasts; - Blood CBC: Hgb, 6.3g/dL; plt, 99k/uL; WBC, 3.0k/uL. - Cytogenetics: pending; - Genotype (NGS): pending; See comments. Specimen Comment See Note [facility] REFRIGERATING MACHINE [facility] Comment: HEPARIN, EDTA, CORE, ASPIRATE, SLIDES DX: PANCYTOPENIA, MDSDIAGNOSIS UNDER CONSIDERATION MDS;PAANCYTOPENIA Plasma Cells <1 0-1% % [facility] REFRIGERATING MACHINE [facility] Myeloblasts 1 0-3% % [facility] Promyelocytes 3 2-8% % [facility] REFRIGERATING MACHINE O[facility] Myelocytes 10 10-13% % [facility] Metamyelocytes 11 10-15% % CANCE R REFRIGERATING MACHINE OPERATOR [facility] Neutrophils / Bands 24 25-40% % [facility] REFRIGERATING MACHINE [facility] Monocytes <1 0-1% % [facility] Eosinophils 1 1-3% % [facility] Basophils <1 0-1% % [facility] Lymphocytes 2 10-15% % [facility] Pronormoblasts 1 0-2% % CANCE R REFRIGERATING MACHINE OPERATOR [facility] Normoblasts 47 15-25% % [facility] WBC 3.0 k/uL [facility] Hgb 6.3 gm/dL [facility] HCT 21.7 % [facility] MCV 97 fL [facility] RDW 14.2 fL [facility] PLT 99 k/uL [facility] Aspirate Cellularity See Note [facility] REFRIGERATING MACHINE OPERATOR [facility] Comment: Satisfactory quality. The submitted bone marrow aspirate smear is cellular with adequate spicules and maturing trilineage hematopoiesis. Myeloid Precursors See Note [facility] REFR[facility] Comment: The myeloid series shows complete granulocytic maturation to segmented neutrophils. There is no increase in number of blasts. Erythroid Precursors See Note CANCER REFRIGERATING MACHINE OPERATOR OF [facility] Comment: Erythroid hyperplasia. Dyserythropoiesis in the form of megaloblastoid changes, nuclear membrane irregularities, focal budding and karyorrhexis. Megakaryocytes See Note [facility] Comment:There is focal megak aryocytic atypia. Lymphoid Cells See Note [facility] Comment:No overt cytologic a bnormalities. Iron Stain See Note [facility] Comment:Trace to absent stor age iron. No ring sideroblasts are noted. Myeloid:Erythroid Ratio 1:1 [facility] Biopsy/Clot See Note [facility] Comment: Scant subcortical core biopsy sections show predominantly cortical bone and focally maturing trilineage hematopoiesis. Clot: Satisfactory quality. Hypercellular for age bone marrow (40-50% cellularity) with maturing trilineage hematopoiesis. The M:E ratio is decreased due to erythroid hyperplasia. Collections of mononuclear blast-like cells are not identified. Blasts appear to comprise <5% of the marrow cellularity, confirmed by immunostaining with CD34). Megakaryocytes are adequate in number with focal cytologic atypia. No significant lymphoid or plasma cell infiltrates are noted. Reticulin: No significant increase in reticulin fibers. Iron: No iron particles are present in decalcified core biopsy or clot. Gross Description See Note [facility] Comment: 1) Core: Received in formalin is a core of firm brown bony material measuring 1.2 x 0.2 x 0.2cm entirely submitted in 1 cassette following decalcification. 2) Clot: Received in formalin, clotted material measuring 2.0 x 1.7 x 0.6cm in aggregate, entirely submitted in 2 cassettes. 3) Number of slides received: 10 Associated Tests See Note [facility] Comment: Flow Cytometry Analysis for Myeloid/Lymphoid Disorders and Acute Leukemia released on: 10/14/2024 Estefania(KUNAL) Advanced NGS Myeloid Report Cytogenetics Myeloid Disorder Immunohistochemical Analysis released on: 10/14/2024 Electronic Signature See Note [facility] Comment: Deanna Carlson M.D. Hematopathologist, ex. [phone] This report was electronically signed. 10/12/2024 8:10 AM MINERAL TECHNOLOGIST Narrative [facility] - 10/14/2024 7:45 PM MINERAL TECHNOLOGIST Testing performed at: [employer] [address] [place] [address], [place] [address], Manager Property: Dr. Parveen Hoffman M.D.; [facility] Accn#:[id number] Release to patient->Immediate us Jordi Olguin MD LAB SEND OUTS Final Result [facility] REFRIGERATING MACHINE OPERATOR [facility] [place] [address] [place] [address], [place] [phone] * (ABNORMAL) CMP (COMPREHENSIVE METABOLIC PANEL) (10/05/2024 1:29 PM MINERAL TECHNOLOGIST) Only the most recent of2 resultswithin the time period is included. Glucose 121(H) 70 - 105 mg/dL [facility] Blood Urea Nitrogen 28(H) 7 - 25 mg/dL [facility] Creatinine 0.9 0.6 - 1.2 mg/dL [facility] Sodium 145 136 - 145 mEq/L [facility] Potassium 4.2 3.5 - 5.1 mEq/L [facility] Chloride 104 98 - 107 mEq/L [facility] Bicarbonate 28 21 - 31 mEq/L [facility] Total Bilirubin 1.2(H) 0.3 - 1.0 mg/dL [facility] Alk. Phosphatase 71 34 - 104 U/L [facility] Aspartate Aminotransferase 23 13 - 39 U/L [facility] Alanine Aminotransferase 13 7 - 52 U/L [facility] Total Protein 5.4(L) 6.4 - 8.9 g/dL [facility] Albumin 3.3(L) 3.5 - 5.7 g/dL [facility] Calcium 9.6 8.6 - 10.3 mg/dL [facility] Anion Gap 17.2(H) 7.0 - 15.0 mEq/L [facility] Globulin 2.1 2.0 - 3.5 g/dL [facility] EGFR 65 >60 ml/min/1. 73m2 [facility] REFRIGERATING MACHINE OPERATOR [facility] Comment: This eGFR is calculated using 2020 CKD-EPI Creatinine equation without race modifier based on the NKF-ASN task force recommendations Blood 10/05/2024 1:29 PM MINERAL TECHNOLOGIST Narrative [facility] - 10/05/2024 2:35 PM MINERAL TECHNOLOGIST Release to patient->Immediate IS THE PATIENT REQUIRED TO BE FASTING FOR 8 HOURS?->No Renetta Urbina LANGUAGE ASST, CRITICAL CARE NURSE SPECIALIST CHEMISTRY ORDERABLES Final Result Performing Organization Address [facility] de Phone Number CANCER REFRIGERATING MACHINE OPERATOR [facility] Cancer Care [address] [address], * (ABNORMAL) RETICULOCYTE COUNT (RETIC) (08/24/2024 2:05 PM MINERAL TECHNOLOGIST) Reticulocyte count 4.27(H) 0.50 - 1.70 % [facility] RET-He 36.20 28.20 - 36.60 pg [facility] REFRIGERATING MACHINE OPERATOR [facility] Comment: RET-He is a direct assessment of incorporation of iron into erythrocyte hemoglobin. It provides an indirect measure of the iron available for new erythropoiesis over past 2-4 days. Blood 08/24/2024 2:05 PM MINERAL TECHNOLOGIST [facility] - 08/24/2024 2:15 PM MINERAL TECHNOLOGIST Release to patient->Immediate Gay Dye APRN, CRITICAL CARE NURSE SPECIALIST HEMATOLOGY ORDERABL ES Final Result Performing Organization Address [facility] de Phone Number CAN[facility]ER REFRIGERATING M[facility] [place] [address], from Last 3 Months Insurance [employer] SENIOR SUPPLEMENTAL MEDICARE Member Subscriber Plan / Payer (Ef fective 2010-Present) Name:Leia Jane Member ID:[id number] Relation to Subscriber:Self Name:Leia Jane Subscriber ID:[id number] Payer ID:[id number] Group ID:Not on file Type:Not on file Address: [facility] [address] [facility] [employer] [facility] [address] Care Teams Assurance Services Manager Health Care Relationship Specialty Start Date End Date Shivam Lombardo DO [address] [place] [address] PCP - General Family Medicine 11/15/23 Trini Lazaro MD [address] [place] [address] Consulting Physician Oncology 11/15/23 Jordi Olguin MD [address] [place] [address] Consulting Physician Oncology 05/11/24
--- OUTSIDE RECORDS SUMMARY | 2024-11-05 14:36 | XMS_ITS | Encounter Summary ---
Author Organization [facility] Address [address] [place] [address] Care Team Providers Care Threshing Operator Name Role Phone Shivam Lombardo DO Primary Care Provider + Kimberly Vieira RN Unavailable [phone] Reason for Visit * Reason Onset Date Comments Advice 10/30/2024 Encounter Details Date Type Department Care Team (Late st Contact Info) Description 10/30/2024 Telephone [facility] Medical Group Family & Internal Medicine [address] [place] [address] Shivam Lombardo DO [facility] [place] [address] Advice Social History Tobacco Use Types Packs/Day Years [...] Sex Assigned at Female 07/29/2024 1:13 PM PSYCHIATRIC TECHNICIAN ASSISTANT Legal Sex Female 8:19 PM CDT Gender Identity Female 09/04/2021 4:46 PM PSYCHIATRIC TECHNICIAN ASSISTANT Sexual Orientation Not on file Occupation Industry Job Start Date Job End Date Not on file Not on file Not on file Not on file documented as of this encounter Progress Notes * Halie Rice MA - 11/04/2024 11:33 AM CDT Spoke with patient on 11/04/2024 see task on swelling. Informed her ok to take tylenol. Patient is having other sx as well. * Leanna See - 11/02/2024 11:46 AM CDT Pt called in regarding this. Pt states okay to leave detailed message. * Halie Rice MA - 10/30/2024 2:59 PM CST Called and LMOM. Will try contacting again. HIATRIC TECHNICIAN ASSISTANT * Shivam Lombardo DO - 10/30/2024 2:51 PM CST I would start with Tylenol OTC dosing. May need OV to evaluate though; pain management for her is not straight forward with her chronic conditions. HIATRIC TECHNICIAN ASSISTANT * Leanna See - 10/30/2024 1:25 PM CST Pt asking for recommendations for medication for leg pain. Asking what she should be taking. Pleaseadvise. HIATRIC TECHNICIAN ASSISTANT documented in this encounter Plan of Treatment Upcoming Encounters Date Type Department Care Team (Late st Contact Info) Description 11/06/2024 1:00 PM CDT Office Visit [facility] Medical Group Family & Internal Medicine [address] [address] Becky Lombardory Lulu, [address] [place] [address] documented as of this encounter Goals Goal Patient Goal Type Associated Problems Recent Progress Patient-Stated? Author Establish Plan for Symptom Monitoring for anemia aeb the below: Lifestyle On track(2024 1:44 PM PSYCHIATRIC TECHNICIAN ASSISTANT) Kimberly Dupree RN Note: .1) Patient will [...] the below: Lifestyle On track(2024 1:44 PM PSYCHIATRIC TECHNICIAN ASSISTANT) Kimberly Dupree, RN Note: 1) Patient will take all [...] the below: Lifestyle On track(2024 1:44 PM PSYCHIATRIC TECHNICIAN ASSISTANT) Kimberly Dupree, RN Note: .1) patient will follow up [...] on filedocumented in this encounter Care Teams Threshing Operator Relationship Specialty Start Date End Date Shivam Lombardo DO [address] [place] [address] PCP - General FAMILY PRACTICE 05/29/21 Kimberly Vieira, RN [address] [address] Registered Nurse CARE MANAGEMENT 03/23/24 documented as of this encounter
--- OUTSIDE RECORDS SUMMARY | 2024-11-05 14:36 | XMS_ITS | Encounter Summary ---
Author Organization [facility] Address [address] [place] [address] Care Team Providers Care Multimedia Engineer Name Role Phone Shivam Lombardo DO Primary Care Provider + Kimberly Vieira RN Unavailable [phone] Encounter Details Date Type Department Care Team (Late st Contact Info) Description 11/15/2022 MyChart Message Enc [facility] Medical Group Family & Internal Medicine [address] [place] [address] Shivam Lombardo DO [address] [place] [address] Mammogram Results Social History Tobacco Use Types Packs/Day Years Used Date Smoking Tobacco: Never Smokeless Tobacco: Never Alcohol Use Standard Drinks/Week Comments Never 0 (1 standard drink = 0.6 oz pur e alcohol) PHQ-2 Answer Date Recorded Patient Health Questionnaire-2 Score 0 10/15/2022 Comments No Sex and Gender Information Value Date Recorded Sex Assigned at Female 07/29/2024 1:13 PM QUALITY TECHNICIAN Legal Sex Female 8:19 PM CDT Gender Identity Female 09/04/2021 4:46 PM QUALITY TECHNICIAN Sexual Orientation Not on file Occupation Industry Job Start Date Job End Date Not on file Not on file Not on file Not on file documented as of this encounter Plan of Treatment Upcoming Encounters Date Type Department Care Team (Late st Contact Info) Description 11/06/2024 1:00 PM CDT Office Visit [facility] Family [facility] Medicine - [place] [address] [place] [address] Shivam Lombardo DO [address] [place] [address] documented as of this encounter Visit Diagnoses Not on filedocumented in this encounter Care Teams Multimedia Engineer Relationship Specialty [place] [address] [place] [address] PCP - General FAMILY PRACTICE 05/29/21 Kimberly Vieira, RN [address] [address] Registered Nurse CARE MANAGEMENT 03/23/24 documented as of this encounter
--- OUTSIDE RECORDS SUMMARY | 2024-11-05 14:36 | XMS_ITS | Encounter Summary ---
Author Organization [facility] Address [address] [place] [address] Care Team Providers Care Drug Discovery Informatics Specialist Name Role Phone Shivam Lombardo DO Primary Care Provider + Kimberly Vieira RN Unavailable [phone] Encounter Details Date Type Department Care Team (Late Contact Info) Description 02/20/2023 MyChart Message Enc [facility] Medical Group [facility] [address] [place], [place] [address] [facility], [facility] Provider Air Quality Message Social History Tobacco Use Types Packs/Day Years Used Date Smoking Tobacco: Never Smokeless Tobacco: Never Alcohol Use Standard Drinks/Week Comments Never 0 (1 standard drink = 0.6 oz pur e alcohol) PHQ-2 Answer Date Recorded Patient Health Questionnaire-2 Score 0 10/15/2022 Comments No Sex and Gender Information Value Date Recorded Sex Assigned at Female 07/29/2024 1:13 PM SHED WORKERS SUPERVISOR Legal Sex Female 8:19 PM CDT Gender Identity Female 09/04/2021 4:46 PM SHED WORKERS SUPERVISOR Sexual Orientation Not on file Occupation Industry Job Start Date Job End Date Not on file Not on file Not on file Not on file documented as of this encounter Plan of Treatment Upcoming Encounters Date Type Department Care Team (Late Contact Info) Description 11/06/2024 1:00 PM CDT Office Visit [facility] Medical Group Family & Internal Medicine [address] [phone] Shivam Lombardo DO [address] [place] [address] documented as of this encounter Visit Diagnoses Not on filedocumented in this encounter Care Teams Drug Discovery Informatics Specialist Relationship Specialty Start Date End Date Shivam Lombardo DO [address] [place] [address] PCP - General FAMILY PRACTICE 05/29/21 Kimberly Vieira, RN [address] [facility] [address] [place] [address] Registered Nurse CARE MANAGEMENT 03/23/24 documented as of this encounter
--- OUTSIDE RECORDS SUMMARY | 2024-11-05 14:36 | XMS_ITS | Clinical Summary ---
Author Organization [facility] [employer] Address [address] [place] [address] Care Team Providers Care Regulatory Affairs Internship Name Role Phone Khang Greer MD Primary Care Provider [phone] Source Comments [facility],non-[facility] Affiliates and Associated Physician Practices is amultiple site organization consisting of ambulatory clinics and hospital sitesin [place], [place], [place] and [place]. This disclosure is being madepursuant to the Care Everywhere program and may not contain all information available regarding this patient. Last updated 18.[facility] [employer] Allergies No known active allergies Medications * [...] Visit [facility] [address] [facility], [place] [address] Chad Reza MD [facility] [place] [address] Health Maintenance Due Date Last Done Comments BONE DENSITY TESTING 1945 MEDICARE AWV 12 MONTHS 1945 HEPATITIS C SCREENING 01/17/1964 [...] complete this topic MENINGOCOCCAL (Group B) VACCINE SHARED DECISION-MAKING Aged Out No longer eligible based on patient's age to complete this topic MENINGOCOCCAL GROUPS A/C/Y/W VACCINE Aged Out No longer eligible based on patient's age to complete this topic Advance Directives * Full Code (Latest Code Status on File) Date Activated Date Inactivated Comments 01/25/2024 2:29 AM 01/26/2024 4:42 PM Care Teams Regulatory Affairs Internship Relationship Specialty Start Date End Date Khang Greer MD [address] [place] [address] PCP - General 10/31/16
--- OUTSIDE RECORDS SUMMARY | 2024-11-05 14:36 | XMS_ITS | Encounter Summary ---
Author Organization [facility] Address [address] [place] [address] Care Team Providers Care Glycerin Supervisor Name Role Phone Shivam Lombardo DO Primary Care Provider + Kimberly Vieira RN Unavailable [phone] Reason for Visit * Reason Onset Date Comments Swelling 11/04/2024 Encounter Details Date Type Department Care Team (Late st Contact Info) Description 11/04/2024 Telephone [facility] Medical Group Family & Internal Medicine [address] [place] [address] Shivam Lombardo DO [facility] [place] [address] Swelling Social History Tobacco Use Types Packs/Day Years [...] Sex Assigned at Female 07/29/2024 1:13 PM COMMUNITY ORGANIZATION AIDE Legal Sex Female 8:19 PM CDT Gender Identity Female 09/04/2021 4:46 PM COMMUNITY ORGANIZATION AIDE Sexual Orientation Not on file Occupation Industry Job Start Date Job End Date Not on file Not on file Not on file Not on file documented as of this encounter Progress Notes * Halie Rice MA - 11/04/2024 1:42 PM CDT Spoke with patient and informed her of increase in furosemide and scheduled appt. * Shivam Lombardo DO - 11/04/2024 11:42 AM CDT Have her go back on 80 mg of furosemide and see me on Saturday. * Halie Rice MA - 11/04/2024 11:22 AM CDT The patient called in stating both her legs are swelling. The patient states the swelling did go down when she was on 80mg of furosemide. This increase happened on 10/12/2024 for one week. The patient states her swelling is getting so bad she cannot wear shoes. I had a previous message on patient about leg pain as well and tylenol was recommended. I advised her of recommendation. She states the pain has improved or she has gotten use to having the pain. My concern is is these sx related? The patient states she checks her b/p daily and today is was 126/79 p89, yesterday 130/79 p85. documented in this encounter Plan of Treatment Upcoming Encounters Date Type Department Care Team (Late st Contact Info) Description 11/06/2024 1:00 PM CDT Office Visit [facility] Medical Group Family & Internal Medicine - [place] [address] [place] [address] Shivam Lombardo DO [address] [place] [address] documented as of this encounter Goals Goal Patient Goal Type Associated Problems Recent Progress Patient-Stated? Author Establish Plan for Symptom Monitoring for anemia aeb the below: Lifestyle On track(2024 1:44 PM COMMUNITY ORGANIZATION AIDE) Kimberly Dupree, RN Note: .1) Patient will be knowledge [...] the below: Lifestyle On track(2024 1:44 PM COMMUNITY ORGANIZATION AIDE) Kimberly Dupree RN Note: 1) Patient will [...] the below: Lifestyle On track(2024 1:44 PM COMMUNITY ORGANIZATION AIDE) Kimberly Dupree RN Note: .1) patient will [...] on filedocumented in this encounter Care Teams Glycerin Supervisor Relationship Specialty Start Date End Date Shivam Lombardo DO [address] [place] [address] PCP - General FAMILY PRACTICE 05/29/21 Kimberly Vieira, RN [address] [address] Registered Nurse CARE MANAGEMENT 03/23/24 documented as of this encounter
--- OUTSIDE RECORDS SUMMARY | 2024-11-05 14:36 | XMS_ITS ---
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 Other Current Plans [facility]SCI: Support - Monoferric* Plan Start Date:10/12/2024 Plan Provider:Renetta Urbina APRN, IMCU SPECIALIST Linked Problems Iron deficiency Treatment Medications No medications scheduled. Past Treatment and Therapy Plans No past plan information found.
--- OUTSIDE RECORDS SUMMARY | 2024-11-05 14:36 | XMS_ITS | CONTINUITY OF CARE DOCUMENT ---
Author Name sami gallardo Address Unknown Organization [facility] Address [address] [facility] [address] [place] [address] Phone [phone] Care Team Providers Care Keel Press Operator Name Role Phone Dawood PEREZ, Pee Unavailable DEON PEREZ, KODI Unavailable REESE NERI, SUDHA Bolden Unavailable INSURANCE PROVIDERS Payer name Policy type / Coverage type Spring red green party ID [id number] PAY [id number]
--- OUTSIDE RECORDS SUMMARY | 2024-11-05 14:36 | XMS_ITS | Referral Summary ---
Author Organization [facility] Address [address] [place] [address] Care Team Providers Care Seamer Name Role Phone Khang Greer MD Primary Care Provider [phone] Source Comments [facility] Affiliates and Associated Physician Practices is amultiple site organization consisting of ambulatory clinics and hospital sitesin [place], [place], [place] and [place]. This disclosure is being madepursuant to the Care Everywhere program and may not contain all information available regarding this patient. Last updated 18.[facility] Allergies No known active allergies Medications * [...] Description 11/23/2024 2:30 PM CDT Office Visit [facility] [address] [facility], [place] [phone] Chad Reza MD [facility] [address] Advance Directives * Full Code (Latest Code Status on File) Date Activated Date Inactivated Comments 01/25/2024 2:29 AM 01/26/2024 4:42 PM Care Teams Seamer Relationship Specialty Start Date End Date Khang Greer MD [address] [place] [address] PCP - General 10/31/16
== END 2024-11-05 13:02 | disposition home or self-care (01) ==
LOC: ANHLAB 13:03
PROVIDERS: PCP Student in an Organized Health Care Education/Training Program; Visit Provider Internal Medicine Gastroenterology
DX: J45.20 Mild intermittent asthma, uncomplicated (principal); K74.60 Unspecified cirrhosis of liver
CPT/HCPCS: 36415; 80053; 85027; 85610

== ENCOUNTER 2024-11-11 15:19 | Outpatient (CLI) | payer MEDICARE, SELFPAY ==
--- NOTE | ~2024-11-11 | US_ITS ---
RIGHT LOWER EXTREMITY VENOUS ULTRASOUND Ordering provider: Shivam Lombardo, DO History: . Rt leg swelling . Comparison: None. FINDINGS: --COMMON FEMORAL: Patent and free of thrombus. Normal compressibility, phasic flow and augmentation. --PROXIMAL SUPERFICIAL FEMORAL: Patent and free of thrombus. Normal compressibility, phasic flow and augmentation. --DISTAL SUPERFICIAL FEMORAL: Patent and free of thrombus. Normal compressibility, phasic flow and au gmentation. --POPLITEAL: Patent and free of thrombus. Normal compressibility, phasic flow and augmentation. --POSTERIOR TIBIAL: Thrombosed. IMPRESSION: Thrombosis of the posterior tibial vein suggestive of deep vein thrombosis. Reviewed, dictated and finalized at location A.
--- OUTSIDE RECORDS SUMMARY | 2024-11-11 16:52 | XMS_ITS | Encounter Summary ---
Author Organization [facility] Address [address] [place] [address] Care Team Providers Care Substation Engineer Name Role Phone Shivam Lombardo DO Primary Care Provider + Kimberly Vieira RN Unavailable [phone] Encounter Details Date Type Department Care Team (Late st Contact Info) Description 11/15/2022 MyChart Message Enc [facility] Medical Group Family & Internal Medicine [address] [place] [address] Shivam Lombardo DO [address] [place] [address] Mammogram Results Social History Tobacco Use Types Packs/Day Years Used Date Smoking Tobacco: Never Smokeless Tobacco: Never Alcohol Use Standard Drinks/Week Comments Never 0 (1 standard drink = 0.6 oz pur e alcohol) PHQ-2 Answer Date Recorded Patient Health Questionnaire-2 Score 0 10/15/2022 Comments No Sex and Gender Information Value Date Recorded Sex Assigned at Female 07/29/2024 1:13 PM PIGMENT MAKING SUPERVISOR Legal Sex Female 8:19 PM CDT Gender Identity Female 09/04/2021 4:46 PM PIGMENT MAKING SUPERVISOR Sexual Orientation Not on file Occupation Industry Job Start Date Job End Date Not on file Not on file Not on file Not on file documented as of this encounter Plan of Treatment Upcoming Encounters Date Type Department Care Team (Late st Contact Info) Description 01/13/2025 1:40 PM CDT Office Visit [facility] Family & Internal Medicine - [place] [address] [place] [address] Shivam Lombardo DO [address] [place] [address] documented as of this encounter Visit Diagnoses Not on filedocumented in this encounter Care Teams Substation Engineer Relationship Specialty [place] [address] [place] [address] PCP - General FAMILY PRACTICE 05/29/21 Kimberly Vieira, RN [address] [address] Registered Nurse CARE MANAGEMENT 03/23/24 documented as of this encounter
--- OUTSIDE RECORDS SUMMARY | 2024-11-11 16:52 | XMS_ITS | Encounter Summary ---
Author Organization [facility] Address [address] [place] [address] Care Team Providers Care Calender Operator Name Role Phone Shivam Lombardo DO Primary Care Provider + Kimberly Vieira RN Unavailable [phone] Encounter Details Date Type Department Care Team (Latest Contact Info) Description 10/26/2024 Scan HEALTH INFO [facility] Scanned, Doc Med Group Social History Tobacco Use Types Packs/Day Years Used Date Smoking Tobacco: Never Passive Smoke Exposure: Never Smokeless Tobacco: Never Alcohol Use Standard Drinks/Week Comments Never 0 (1 standard drink = 0.6 oz pur e alcohol) PHQ-2 Answer Date Recorded Patient Health Questionnaire-2 Score 0 11/06/2024 PRAPARE - Transportation Answer Date Re corded [...] Sex Assigned at Female 07/29/2024 1:13 PM PRESS HAND SUPERVISOR Legal Sex Female 8:19 PM CDT Gender Identity Female 09/04/2021 4:46 PM PRESS HAND SUPERVISOR Sexual Orientation Not on file Occupation Industry Job Start Date Job End Date Not on file Not on file Not on file Not on file documented as of this encounter Plan of Treatment Upcoming Encounters Date Type Department Care Team ( Contact Info) Description 01/13/2025 1:40 PM CDT Office Visit [facility] Medical Group Family & Internal Medicine [address] [place] [address] Shivam Lombardo DO [address] [place] [address] documented as of this encounter Goals Goal Patient Goal Type Associated Problems Recent Progress Patient-Stated? Author Establish Plan for Symptom Monitoring for anemia aeb the below: Lifestyle On track(2024 1:44 PM PRESS HAND SUPERVISOR) Kimberly Dupree, RN Note: .1) Patient will [...] the below: Lifestyle On track(2024 1:44 PM PRESS HAND SUPERVISOR) Kimberly Dupree RN Note: 1) Patient will [...] the below: Lifestyle On track(2024 1:44 PM PRESS HAND SUPERVISOR) Kimberly Dupree RN Note: .1) patient will [...] on filedocumented in this encounter Care Teams Calender Operator Relationship Specialty Start Date End Date Shivam Lombardo DO [address] [place] [address] PCP - General FAMILY PRACTICE 05/29/21 Kimberly Vieira, RN [address] [address] Registered Nurse CARE MANAGEMENT 03/23/24 documented as of this encounter
--- OUTSIDE RECORDS SUMMARY | 2024-11-11 16:52 | XMS_ITS | Encounter Summary ---
Author Organization [facility] Address [address] [place] [address] Care Team Providers Care Director Of Research Name Role Phone Shivam Lombardo DO Primary Care Provider + Kimberly Vieira RN Unavailable [phone] Encounter Details Date Type Department Care Team (Late Contact Info) Description 02/20/2023 MyChart Message Enc [facility] Medical Group [facility] [address] [place], [place] [address] [employer], [facility] Provider Air Quality Message Social History Tobacco Use Types Packs/Day Years Used Date Smoking Tobacco: Never Smokeless Tobacco: Never Alcohol Use Standard Drinks/Week Comments Never 0 (1 standard drink = 0.6 oz pur e alcohol) PHQ-2 Answer Date Recorded Patient Health Questionnaire-2 Score 0 10/15/2022 Comments No Sex and Gender Information Value Date Recorded Sex Assigned at Female 07/29/2024 1:13 PM COMMUNICATIONS SUPERVISOR Legal Sex Female 8:19 PM CDT Gender Identity Female 09/04/2021 4:46 PM COMMUNICATIONS SUPERVISOR Sexual Orientation Not on file Occupation Industry Job Start Date Job End Date Not on file Not on file Not on file Not on file documented as of this encounter Plan of Treatment Upcoming Encounters Date Type Department Care Team (Late Contact Info) Description 01/13/2025 1:40 PM CDT Office Visit [facility] Medical Group Family & Internal Medicine [address] [phone] Shivam Lombardo DO [address] [place] [address] documented as of this encounter Visit Diagnoses Not on filedocumented in this encounter Care Teams Director Of Research Relationship Specialty Start Date End Date Shivam Lombardo DO [address] [place] [address] PCP - General FAMILY PRACTICE 05/29/21 Kimberly Vieira, RN [address] [facility] [address] [place] [address] Registered Nurse CARE MANAGEMENT 03/23/24 documented as of this encounter
--- OUTSIDE RECORDS SUMMARY | 2024-11-11 16:52 | XMS_ITS | Encounter Summary ---
Author Organization [facility] Address [address] [place] [address] Care Team Providers Care Motocross Racer Name Role Phone Shivam Lombardo DO Primary Care Provider + Kimberly Vieira RN Unavailable [phone] Reason for Referral * Imaging (Emergency) - Authorized Specialty Diagnoses / Procedures Referred By Korina isbell Referred To Contact RADIOLOGY Diagnoses Right leg swelling Procedures USV ALYSSA DUPLEX LOW EXT LT Shivam Lombardo DO [address] [place] [address] Phone: tel: fax: [address] [address] Phone: tel: fax: Referral ID Status Reason Start Date Expiration Date V isits Requested Visits Authorized [id number] Authorized 11/11/2024 11/11/2025 1 1 Reason for Visit * Reason Onset Date Comments Results 11/11/2024 Encounter Details Date Type Department Care Team (Late st Contact Info) Description 11/11/2024 Telephone [facility] Family & Internal Medicine [facility] [address] [place] [id number] Shivam Lombardo DO [address] [place] [address] Results Social History Tobacco Use Types Packs/Day [...] Sex Assigned at Female 07/29/2024 1:13 PM HAND FLESHER Legal Sex Female 8:19 PM CDT Gender Identity Female 09/04/2021 4:46 PM HAND FLESHER Sexual Orientation Not on file Occupation Industry Job Start Date Job End Date Not on file Not on file Not on file Not on file documented as of this encounter Progress Notes * Halie Jeong MA - 11/11/2024 3:10 PM CDTAddended by: HALIE JEONG on: 11/11/2024 03:10 PM Modules accepted: Orders * Halie Jeong MA - 11/11/2024 2:37 PM CDT The patient states she saw Dr. Fabian's HELP DESK CONSULTANT today. She brought a spot on her RT calf to the providers attention. The area is warm and vascular look. The HELP DESK CONSULTANT states it is concerning for a DVT. The HELP DESK CONSULTANT informed patient to contact pcp for stat orders. Verbal orders given and scheduled. Patient will be a stat hold and call. Dr. Lombardo documented in this encounter Plan of Treatment Upcoming Encounters Date Type Department Care Team (Late st Contact Info) Description 01/13/2025 1:40 PM CDT Office Visit [facility] Family & Internal Medicine [id number] [place] [address] Candace Lombardoad LawsonDO Formerly named [facility] [place] [address] Scheduled Orders Name Type Priority Associated Diagnoses Orde r Schedule USV ALYSSA DUPLEX LOW EXT LT US VASC STAT Right leg swelling Expected: 11/11/2024, Expires: 11/11/2025 documented as of this encounter Goals Goal Patient Goal Type Associated Problems Recent Progress Patient-Stated? Author Establish Plan for Symptom Monitoring for anemia aeb the below: Lifestyle On track(2024 1:44 PM HAND FLESHER) Kimberly Dupree RN Note: .1) Patient will [...] the below: Lifestyle On track(2024 1:44 PM HAND FLESHER) Kimberly Dupree RN Note: 1) Patient will [...] the below: Lifestyle On track(2024 1:44 PM HAND FLESHER) No Dariel, Kimberly F, RN Note: .1) patient will follow up [...] documented as of this encounter Visit Diagnoses Diagnosis Right leg swelling- Primary Acute deep vein thrombosis (DVT) of proximal vein of right lower extremity (CMS/HCC HHS/HCC) documented in this encounter Care Teams Motocross Racer Relationship Specialty Start Date End Date Shivam Lombardo DO [address] [place] [address] PCP - General FAMILY PRACTICE 05/29/21 Kimberly Vieira, RN [address] [address] Registered Nurse CARE MANAGEMENT 03/23/24 documented as of this encounter
--- OUTSIDE RECORDS SUMMARY | 2024-11-11 16:52 | XMS_ITS | Encounter Summary ---
Author Organization [facility] Address [address] [place] [address] Care Team Providers Care Forklift Wheel Loader Name Role Phone Shivam Lombardo DO Primary Care Provider + Kimberly Vieira RN Unavailable [phone] Reason for Visit * Reason Onset Date Comments Information 11/10/2024 Encounter Details Date Type Department Care Team (Late st Contact Info) Description 11/10/2024 Telephone [facility] Medical [facility] Family & Internal Medicine [id number] [place] [address] Shivam Lombardo DO [facility] [place] [address] Information Social History Tobacco Use Types Packs/Day Years [...] Sex Assigned at Female 07/29/2024 1:13 PM [employer] Legal Sex Female 8:19 PM CDT Gender Identity Female 09/04/2021 4:46 PM [employer] Sexual Orientation Not on file Occupation Industry Job Start Date Job End Date Not on file Not on file Not on file Not on file documented as of this encounter Progress Notes * Halie Rice MA - 11/10/2024 1:59 PM CDT Spoke with patient when she returned call and informed her we have not ordered a CGM for her nor was it documented in her ERENDIRA. The patient v/u and will not give out personal information and that she did the correct thing by calling us. The patient v/u and did not have questions at this time. * Halie Rice MA - 11/10/2024 1:33 PM CDT Called patient and unable to lmom. * Leanna See - 11/10/2024 1:21 PM CDT PT called in stating received call from someone claiming to be with Medicare stating PCP had ordered CGMs for her. Pt was asked to provided medicare number and SSN. PT did not provided information and informed them she was going to call PCP office. Pt asking if PCP ordered CGM for her, wanting callback to confirm or deny. Pt did not have number they called from at this time. Please advise. documented in this encounter Plan of Treatment Upcoming Encounters Date Type Department Care Team (Late st Contact Info) Description 01/13/2025 1:40 PM CDT Office Visit [facility] Medical Group Family & Internal Medicine [address] [phone] Shivam Lombardo, [address] [place] [address] documented as of this encounter Goals Goal Patient Goal Type Associated Problems Recent Progress Patient-Stated? Author Establish Plan for Symptom Monitoring for anemia aeb the below: Lifestyle On track(2024 1:44 PM [employer]) Kimberly Dupree RN Note: .1) Patient will [...] the below: Lifestyle On track(2024 1:44 PM [employer]) Kimberly Dupree, RN Note: 1) Patient will [...] the below: Lifestyle On track(2024 1:44 PM [employer]) Kimberly Dupree RN Note: .1) patient will [...] on filedocumented in this encounter Care Teams Forklift Wheel Loader Relationship Specialty Start Date End Date Shivam Lombardo DO [address] [place] [address] PCP - General FAMILY PRACTICE 05/29/21 Kimberly Vieira, RN [address] [facility] [address] [place] [address] Registered Nurse CARE MANAGEMENT 03/23/24 documented as of this encounter
--- OUTSIDE RECORDS SUMMARY | 2024-11-11 16:53 | XMS_ITS | Clinical Summary ---
Author Organization [facility] Address [address] [facility] [place] [address] Care Team Providers Care As400 Developer Name Role Phone Khang Greer MD Primary Care Provider Source Comments [facility],non-owned Affiliates and Associated Physician Practices is amultiple site organization consisting of ambulatory clinics and hospital sitesin [place], [place], [place] and [place]. This disclosure is being madepursuant to the Care Everywhere program and may not contain all information available regarding this patient. Last updated 18.[facility] [employer] Allergies No known active allergies Medications * [...] Visit [facility] [address] [facility], [place] [phone] Chad Reza MD [facility] [place] [address] Health Maintenance Due Date Last Done Comments BONE DENSITY TESTING 1945 MEDICARE AWV 12 MONTHS 1945 DTAP/TDAP/TD VACCINES (1 - Tdap) 1965 PNEUMOCOCCAL VACCINE 50+ (1 of 2 - PCV) 1965 ZOSTER VACCINE (1 of 2) 01/22/1996 Respiratory Syncytial Virus (RSV) Vaccine Pt: or over 60 yrs (1 - 1-dose 75+ series) 2021 COVID-19 VACCINE ( season) 2024 07/01/2023, 06/13/2022, 06/08/2021, Additional history exists INFLUENZA VACCINE (#1) 2024 , 05/29/2021, 06/18/2020, Additional history exists DEPRESSION SCREENING 08/26/2024 HEPATITIS C SCREENING Completed 02/04/2024, 023 HEPATITIS B VACCINE Aged Out No longe [...] 2:29 AM 01/26/2024 4:42 PM Care Teams As400 Developer Relationship Specialty Start Date End Date Khang Greer MD [address] [facility] [address] [place] [address] PCP - General 10/31/16
--- OUTSIDE RECORDS SUMMARY | 2024-11-11 16:53 | XMS_ITS | Clinical Summary ---
Author Organization [facility] Address [address], [address] [place] [address] Phone Care Team Providers Care Photocopying Equipment Mechanic Name Role Phone Shivam Lombardo DO Primary Care Provider + Trini Lazaro MD Unavailable Jordi Olguin MD Unavailable [phone] Allergies No known active allergies Medications citalopram [...] Encounters Date Type Department Care Team Description 11/10/2024 Telephone [facility] [address] [phone] Jordi Olguin MD Canopy Call / questions 11/09/2024 1:30 PM CDT Clinical Support [facility] [address] [phone] Nurse, Cc Ofarnie 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); Pancytopenia (HCC); MDS (myelodysplastic syndrome), low grade (HCC) 11/09/2024 Travel 11/02/2024 1:30 PM CDT Clinical Support [facility] [address] [phone] Nurse, Cc Lynette MDS (myelodysplastic syndrome), low grade (HCC) (Primary Dx); Pancytopenia (HCC) 11/02/2024 Travel 11/02/2024 Telephone [facility] [address] [phone] Jordi Olguin MD Canopy Call / CBC and EPO 10/27/2024 Telephone [facility] [address] [phone] Jordi Olguin MD Canopy Call / GI referral 10/26/2024 1:15 PM NONFARM ANIMAL CARETAKER Clinical Support [facility] [address] [phone] Nurse, Cc Lynette MDS (myelodysplastic syndrome), low grade (HCC) (Primary Dx) 10/26/2024 1:00 PM NONFARM ANIMAL CARETAKER Office Visit [facility] [address] [phone] Jordi Olguin MD MDS (myelodysplastic syndrome), low grade (HCC) (Primary Dx) 10/26/2024 12:45 PM NONFARM ANIMAL CARETAKER Lab [facility] [address] [address] Lab, Cc Ofallon MDS (myelodysplastic syndrome), low grade (HCC) 10/26/2024 Telephone [facility] [address] [address] Jordi Olguin MD 10/26/2024 Travel 10/19/2024 11:15 AM NONFARM ANIMAL CARETAKER Clinical Support [facility] [address] [phone] Nurse, Cc Ofallon MDS (myelodysplastic syndrome), low grade (HCC) (Primary Dx); Pancytopenia (HCC) 10/19/2024 11:00 AM NONFARM ANIMAL CARETAKER Lab [facility] [address] [address] Lab, Cc Ofallon 10/19/2024 Travel 10/12/2024 9:00 AM NONFARM ANIMAL CARETAKER Clinical Support [facility] [address] [phone] Nurse, Cc Ofallon Iron deficiency (Primary Dx); Pancytopenia (HCC) 10/12/2024 8:00 AM NONFARM ANIMAL CARETAKER Procedure Visit [facility] [address] [phone] Jordi Olguin MD MDS (myelodysplastic syndrome), low grade (HCC) (Primary Dx) 10/12/2024 7:45 AM NONFARM ANIMAL CARETAKER Clinical Support [facility] [address] [address] Nurse, Cc Ofallon MDS (myelodysplastic syndrome), low grade (HCC) (Primary Dx) 10/12/2024 Travel 10/05/2024 2:15 PM NONFARM ANIMAL CARETAKER Clinical Support [facility] [address] [address] Nurse, Cc Ofizaiahon Pancytopenia (HCC) (Primary Dx); MDS (myelodysplastic syndrome), low grade (HCC) 10/05/2024 1:45 PM NONFARM ANIMAL CARETAKER Office Visit [facility] [address] [phone] Cristina Maldonado, ABSTRACTOR, CANNONEER Pancytopenia (HCC) (Primary Dx); MDS (myelodysplastic syndrome), low grade (HCC) 10/05/2024 1:35 PM NONFARM ANIMAL CARETAKER Lab [facility] [address] [address] Lab, Cc Ofallon Pancytopenia (HCC); MDS (myelodysplastic syndrome), low grade (HCC) 10/05/2024 Results Follow-Up [facility] [address] [phone] Renetta Urbina ABSTRACTOR, CANNONEER 10/05/2024 Telephone [facility] [address] [phone] Jordi Olguin MD 10/05/2024 Travel 09/29/2024 Telephone [facility] [address] [phone] Jordi Ogluin MD Canopy Call / Er visit 09/28/2024 11:00 AM NONFARM ANIMAL CARETAKER Lab [facility] [address] [phone] Nurse, Cc Ofallon MDS (myelodysplastic syndrome), low grade (HCC) (Primary Dx); Pancytopenia (HCC) 09/28/2024 Telephone [facility] [address] [phone] Jordi Olguin MD 09/28/2024 Travel 09/28/2024 Telephone [facility] [address] [phone] Jordi Olguin MD Canopy Call / Weekly CBC and EPO 09/24/2024 1:00 PM NONFARM ANIMAL CARETAKER Office Visit [facility] [address] [phone] Jordi Olguin MD MDS (myelodysplastic syndrome), low grade (HCC) (Primary Dx) 09/21/2024 2:15 PM NONFARM ANIMAL CARETAKER Clinical Support [facility] [address] [phone] Nurse, Cc Ofallon MDS (myelodysplastic syndrome), low grade (HCC) (Primary Dx) 09/21/2024 2:00 PM NONFARM ANIMAL CARETAKER Office Visit [facility] [address] [phone] Renetta Urbina APRN, CANNONEER MDS (myelodysplastic syndrome), low grade (HCC) (Primary Dx); Pancytopenia (HCC) 09/21/2024 1:45 PM NONFARM ANIMAL CARETAKER Lab [facility] [address] [phone] Lab, Cc Ofallon Pancytopenia (HCC); MDS (myelodysplastic syndrome), low grade (HCC) 09/21/2024 Telephone [facility] [address] [phone] Jordi Olguin MD 09/21/2024 Travel 09/07/2024 1:30 PM NONFARM ANIMAL CARETAKER Clinical Support [facility] [address] [phone] Nurse, Cc Ofallon MDS (myelodysplastic syndrome), low grade (HCC) (Primary Dx); Pancytopenia (HCC) 09/07/2024 Travel 08/24/2024 2:15 PM NONFARM ANIMAL CARETAKER Clinical Support [facility] [address] [phone] Nurse, Cc Ofallon MDS (myelodysplastic syndrome), low grade (HCC) (Primary Dx) 08/24/2024 2:00 PM NONFARM ANIMAL CARETAKER Office Visit [facility] [address] [phone] Renetta Urbina, ABSTRACTOR, CANNONEER Pancytopenia (HCC) (Primary Dx); MDS (myelodysplastic syndrome), low grade (HCC) 08/24/2024 1:45 PM NONFARM ANIMAL CARETAKER Lab [facility] [address] [phone] Lab, Cc [facility] Pancytopenia (HCC); MDS (myelodysplastic syndrome), low grade (HCC) 08/24/2024 Travel from Last 3 Months Immunizations Immunization [...] Sign Reading Time Taken Comments Blood Pressure 110/64 11/09/2024 1:59 PM CDT Pulse 85 10/26/2024 1:29 PM NONFARM ANIMAL CARETAKER Temperature 36.5 C (97.7 F) 10/26/2024 1:29 PM NONFARM ANIMAL CARETAKER Respiratory Rate 18 10/26/2024 1:29 PM NONFARM ANIMAL CARETAKER Oxygen Saturation 95% 10/26/2024 1:29 PM NONFARM ANIMAL CARETAKER Inhaled Oxygen Concentration - - Weight 75.4 kg (166 lb 3.2 oz) 10/26/2024 1:29 P M NONFARM ANIMAL CARETAKER Height 152.4 cm (5') 10/26/2024 1:29 PM NONFARM ANIMAL CARETAKER Body Mass Index 32.46 10/26/2024 1:29 PM NONFARM ANIMAL CARETAKER Plan of Treatment Upcoming Encounters Date Type Department Care Team (Late st Contact Info) Description 11/16/2024 1:30 PM CDT Office Visit [facility] [address] [phone] Jordi Olguin MD [address] [place] [address] [place] [address] 11/16/2024 1:45 PM CDT Clinical Support [facility] [address] [phone] Nurse, Cc [facility] Health Maintenance Due Date Last Done Comments [...] Comments CBC WITH AUTO DIFF OH Routine 11/09/2024 1:23 PM CDT Pancytopenia (HCC) MDS (myelodysplastic syndrome), low grade (HCC) Low grade myelodysplastic syndrome lesions (HCC) CBC WITH AUTO DIFF OH Routine 11/02/2024 1:05 PM CDT Pancytopenia (HCC) MDS (myelodysplastic syndrome), low grade (HCC) IRON W/ IRON BINDING CAPACITY OH Routine 10/26/2024 1:16 PM NONFARM ANIMAL CARETAKER MDS (myelodysplastic syndrome), low grade (HCC) FERRITIN Routine 10/26/2024 1:16 PM NONFARM ANIMAL CARETAKER MDS (myelodysplastic syndrome), low grade (HCC) COMPLETE BLOOD COUNT (CBC) WITH DIFF Routine 10/26/2024 1:16 PM NONFARM ANIMAL CARETAKER MDS (myelodysplastic syndrome), low grade (HCC) CBC WITH AUTO DIFF OH Routine 10/19/2024 11:11 AM NONFARM ANIMAL CARETAKER MDS (myelodysplastic syndrome), low grade (HCC) CBC WITH AUTO DIFF OH Routine 10/12/2024 8:44 AM NONFARM ANIMAL CARETAKER Iron deficiency CCS-ACUTE LEUKEMIA PNL (NON-NY) OH B504-2 Routine 10/12/2024 8:10 AM NONFARM ANIMAL CARETAKER CHROMOSOME ANALYSIS OH 5250-6 Routine 10/12/2024 8:10 AM NONFARM ANIMAL CARETAKER MDS (myelodysplastic syndrome), low grade (HCC) INTEGRATED HEMATOPATHOLOGY SUMMARY REPORT HL7 OH A023-4 Routine 10/12/2024 8:10 AM NONFARM ANIMAL CARETAKER ONKOSIGHT ADVANCED NGS MYELOID PANEL Routine 10/12/2024 8:10 AM NONFARM ANIMAL CARETAKER TWO (2) ANTIBODY OH 5137-5 Routine 10/12/2024 8:10 AM NONFARM ANIMAL CARETAKER BONE MARROW MORPHOLOGY OH 5199-5 Routine 10/12/2024 8:10 AM NONFARM ANIMAL CARETAKER MDS (myelodysplastic syndrome), low grade (HCC) COMPLETE BLOOD COUNT (CBC) WITH DIFF Routine 10/05/2024 1:29 PM NONFARM ANIMAL CARETAKER Pancytopenia (HCC) MDS (myelodysplastic syndrome), low grade (HCC) CMP (COMPREHENSIVE METABOLIC PANEL) Routine 10/05/2024 1:29 PM NONFARM ANIMAL CARETAKER Pancytopenia (HCC) MDS (myelodysplastic syndrome), low grade (HCC) IRON W/ IRON BINDING CAPACITY OH Routine 10/05/2024 1:29 PM NONFARM ANIMAL CARETAKER Pancytopenia (HCC) MDS (myelodysplastic syndrome), low grade (HCC) FERRITIN Routine 10/05/2024 1:29 PM NONFARM ANIMAL CARETAKER Pancytopenia (HCC) MDS (myelodysplastic syndrome), low grade (HCC) COMPLETE BLOOD COUNT (CBC) WITH DIFF Routine 09/28/2024 11:02 AM NONFARM ANIMAL CARETAKER Pancytopenia (HCC) MDS (myelodysplastic syndrome), low grade (HCC) CMP (COMPREHENSIVE METABOLIC PANEL) Routine 09/21/2024 1:55 PM NONFARM ANIMAL CARETAKER Pancytopenia (HCC) MDS (myelodysplastic syndrome), low grade (HCC) COMPLETE BLOOD COUNT (CBC) WITH DIFF Routine 09/21/2024 1:55 PM NONFARM ANIMAL CARETAKER Pancytopenia (HCC) MDS (myelodysplastic syndrome), low grade (HCC) IRON W/ IRON BINDING CAPACITY OH Routine 09/21/2024 1:55 PM NONFARM ANIMAL CARETAKER Pancytopenia (HCC) MDS (myelodysplastic syndrome), low grade (HCC) FERRITIN Routine 09/21/2024 1:55 PM NONFARM ANIMAL CARETAKER Pancytopenia (HCC) MDS (myelodysplastic syndrome), low grade (HCC) CBC WITH AUTO DIFF OH Routine 09/07/2024 1:30 PM NONFARM ANIMAL CARETAKER MDS (myelodysplastic syndrome), low grade (HCC) COMPLETE BLOOD COUNT (CBC) WITH DIFF Routine 08/24/2024 2:05 PM NONFARM ANIMAL CARETAKER Pancytopenia (HCC) MDS (myelodysplastic syndrome), low grade (HCC) IRON W/ IRON BINDING CAPACITY OH Routine 08/24/2024 2:05 PM NONFARM ANIMAL CARETAKER Pancytopenia (HCC) MDS (myelodysplastic syndrome), low grade (HCC) RETICULOCYTE COUNT (RETIC) Routine 08/24/2024 2:05 PM NONFARM ANIMAL CARETAKER Pancytopenia (HCC) MDS (myelodysplastic syndrome), low grade (HCC) FERRITIN Routine 08/24/2024 2:05 PM NONFARM ANIMAL CARETAKER Pancytopenia (HCC) MDS (myelodysplastic syndrome), low grade (HCC) from Last 3 Months Results * (ABNORMAL) CBC WITH AUTO DIFF OH (11/09/2024 1:23 PM CDT) Only the most recent of5 resultswithin the time period is included. WBC 3.1(L) 4.0 - 10.0 10*3/uL [facility] [employer] [facility] HGB 9.8(L) 11.2 - 15.7 g/dL [facility] [employer] [facility] HCT 31.9(L) 34.1 - 44.9 % [facility] [employer] [facility] PLT 116(L) 163 - 369 10*3/uL [facility] MPV 11.5 9.4 - 12.4 fL [facility] [employer] [facility] RBC 3.29(L) 3.93 - 5.22 10*6/uL [facility] MCV 97(H) 79 - 95 fL [facility] [employer] [facility] MCH 29.8 25.6 - 32.2 pg [facility] [employer] [facility] MCHC 30.7(L) 32.2 - 36.5 g/dL [facility] [employer] [facility] RDW 15.8(H) 11.6 - 14.4 % [facility] [employer] [facility] Neutrophils % 58.4 36.0 - 66.0 % [facility] [employer] [facility] Lymphocytes % 29.4 19.0 - 40.0 % [facility] [employer] [facility] Monocytes % 8.1 4.1 - 12.1 % [facility] [employer] [facility] Eosinophils % 3.5 0.0 - 3.5 % [facility] [employer] [facility] Basophils % 0.3 0.0 - 1.0 % [facility] [employer] [facility] Absolute Neutrophils 1.8 1.4 - 6.6 10*3/uL [facility] [employer] [facility] Absolute Lymphocytes 0.9 0.8 - 4.0 10*3/uL [facility] [employer] [facility] Absolute Monocytes 0.3 0.2 - 1.2 10*3/uL [facility] [employer] [facility] Absolute Eosinophils 0.1 0.0 - 0.4 10*3/uL [facility] [employer] [facility] Absolute Basophils 0.0 0.0 - 0.1 10*3/uL [facility] [employer] [facility] 11/09/2024 1:23 PM CDT Renetta Urbina APRN, CANNONEER LAB SEND OUTS Final Result Performing Organization Address City/[facility]/ZIP Co de Phone Number [facility] [facility] [place] [address], * IRON W/ IRON BINDING CAPACITY OH (10/26/2024 1:16 PM NONFARM ANIMAL CARETAKER) Only the most recent of4 resultswithin the time period is included. IRON 54 50 - 212 ug/dL [facility] [employer] [facility] UIBC 208 155 - 355 ug/dL [facility] [employer] [facility] TIBC 262 261 - 478 ug/dl [facility] [employer] [facility] % Saturation 21 20 - 50 % [facility] [employer] [facility] 10/26/2024 1:16 PM NONFARM ANIMAL CARETAKER Narrative [facility] - 10/26/2024 1:54 PM NONFARM ANIMAL CARETAKER Release to patient->Immediate Jordi Olguin MD LAB SEND OUTS Final Result Performing Organization Address City/[facility]/ZIP Co de Phone Number [facility] [employer] [facility] [address] [place] [address], * FERRITIN (10/26/2024 1:16 PM NONFARM ANIMAL CARETAKER) Only the most recent of4 resultswithin the time period is included. Ferritin 118 11 - 307 ng/mL [facility] [employer] [facility] Blood 10/26/2024 1:16 PM NONFARM ANIMAL CARETAKER Narrative [facility] - 10/27/2024 2:09 PM NONFARM ANIMAL CARETAKER Release to patient->Immediate us Jordi Olguin MD CHEMISTRY ORDERABLES Final R esult [facility] [employer] [facility] [place] [address], [place] [phone] * (ABNORMAL) COMPLETE BLOOD COUNT (CBC) WITH DIFF (10/26/2024 1:16 PM NONFARM ANIMAL CARETAKER) Only the most recent of5 resultswithin the time period is included. WBC 2.3(L) 4.0 - 10.0 10*3/uL [facility] [employer] [facility] HGB 6.6(LL) 11.2 - 15.7 g/dL [facility] [employer] [facility] Comment: Critical Result reported to Ghazal King on 10/26/2024 13:28 by Nathanael Hansen. Results were read back to caller. HCT 22.3(L) 34.1 - 44.9 % [facility] [employer] [facility] PLT 109(L) 163 - 369 10*3/uL [facility] [employer] [facility] MPV 11.3 9.4 - 12.4 fL [facility] [employer] [facility] RBC 2.16(L) 3.93 - 5.22 10*6/uL [facility] [employer] [facility] MCV 103(H) 79 - 95 fL [facility] [employer] [facility] MCH 30.6 25.6 - 32.2 pg [facility] [employer] [facility] MCHC 29.6(L) 32.2 - 36.5 g/dL [facility] [employer] [facility] RDW 20.7(H) 11.6 - 14.4 % [facility] [employer] [facility] Absolute Neutrophil Count 1,548 cells/uL [facility] Absolute Seg Count 1,548 1,440 - 6,600 cells/uL [facility] [employer] [facility] Absolute Lymph Count 624(L) 760 - 4,000 cells/uL [facility] [employer] [facility] Absolute Davie Count 69(L) 160 - 1,200 cells/uL [facility] [employer] [facility] Absolute Eos Count 69 0 - 300 cells/uL [facility] [employer] [facility] Segmented Neutrophils 67(H) 36 - 66 % [facility] [employer] [facility] Lymphocytes 27 19 - 40 % [facility] C [facility]TER [facility] Monocytes 3(L) 4 - 12 % [facility] CODY [facility] Eosinophils 3 0 - 3 % [facility] C [facility]TER [facility] WBC Estimate Low [facility] [employer] [facility] Platelet Estimate Low [facility] [employer] [facility] RBC Morphology Abnormal CANCE R [employer] [facility] Macrocytosis 1+ [facility] [employer] [facility] Anisocytosis 2+ [facility] [employer] [facility] Blood 10/26/2024 1:16 PM NONFARM ANIMAL CARETAKER Narrative [facility] [employer] [facility] - 10/27/2024 11:46 AM NONFARM ANIMAL CARETAKER Release to patient->Immediate us Jordi Olguin MD HEMATOLOGY ORDERABLES Final Result [facility] [employer] [facility] [place] [address], [place] [phone] * (ABNORMAL) [employer] Hat ADVANCED NGS MYELOID PANEL (10/12/2024 8:10 AM NONFARM ANIMAL CARETAKER) Pathologist [facility] AD[facility] MYELOID PANEL, SD TL95-4 ABNORMAL (A) [facility] [employer] [facility] Comment: OnUntangle Advanced NGS Myeloid Panel Final Report - RESULT SUMMARY: ABNORMAL - DETECTED GENOMIC ALTERATIONS: - Tier II: Variants of Potential Clinical Significance TET2 p.[id number] DNMT3A p.? Tier III: Variants of Unknown Clinical Significance DNMT3A p.[id number] - TUMOR TYPE: Myelodysplastic Neoplasm - CLINICAL [...] of myelodysplastic neoplasm with low blasts (MDS-LB, #[id number]). - PERTINENT NEGATIVE RESULTS: The following genes [...] ASSOCIATIONS AND PROGNOSTIC ASSOCIATIONS, O SEE BELOW [facility] Comment: PROGNOSTIC ASSOCIATIONS: Gene: DNMT3A Alteration: p.? - Associated with Increased Risk of Leukemic Transformation and Decreased Overall Survival Disease Association: Myelodysplastic Syndromes INTERPRETATION SUMMARY, [place] 230818-3 SEE BELOW(A) [facility] Comment: INTERPRETATION SUMMARY: - It should be noted that this patient has had one or more additional NGS studies. The most recent study showed the following mutation(s): TET2 p.[id number] (33%) and DNMT3A p.? (36%). Please see the previous OnkoSightAdvanced NGS Myeloid Report, Collection Date: May 11, 2024, Specimen ID: [id number]. Presence of 2 pathogenic mutations each exhibiting >10% variant allele frequency has been shown in some studies to be positively predictive for involvement by myelodysplasia (NCCN Guidelines, Myelodysplastic Syndromes, Version 2.2024; 48158642). In the absence of overt morphologic dysplasia or other disease-defining ancillary data, clonal cytopenias of undetermined significance (CCUS) or clonal hematopoiesis of indeterminate potential (CHIP) may also be considered. Correlation with morphologic features and other clinical and laboratory parameters will be required to further assess the significance of the present study results.ar. A mutation in TET2 (p.Osw017Mdw) was detected in this patients sample. Mutations [...] myelodysplasia (NCCN Guidelines, Myelodysplastic Syndromes, Version 2.2025; 53210604; 21217810; 72632285). TET2 mutations may be predictive of improved responses to hypomethylating agents (e.g. Azacytidine), according to some studies (75068109; 15287686; (NCCN Guidelines, Myelodysplastic Syndromes, Version 2.2025)). A mutation in DNMT3A (p.?) was detected in this patients sample. DNMT3A mutations are frequently seen in myelodysplastic syndromes (MDS) and are also seen in other myeloid disorders. Of note, DNMT3A mutations may also be seen in the setting of age related clonal hematopoiesis of indeterminate potential (CHIP) (NCCN Guidelines, Myelodysplastic Syndromes, Version 2.2025; 64147198; 45594469; 00893136). In cases of confirmed MDS, DNMT3A mutations may be associated with inferior clinical outcomes including risk of transformation to acute myeloid leukemia (AML) and inferior overall prognosis (61396377; NCCN Guidelines, Myelodysplastic Syndromes, Version 2.2025). An unclear variant in DNMT3A (p.Jae299Rsy) was detected in this patients sample. This variant has been reported in a limited number of tumor samples (COSMIC) and has not been reported as a population variant in publicly available databases (gnomAD). Therefore, due to the paucity of functional and clinical evidence, its significance is currently unclear. Clinical and pathologic correlation is required to interpret these findings. 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 The introduction of a stop codon at this position results in a truncated form of the protein. This mutation occurs N-terminal to the catalytic core of the protein ([id number]). TET2 nonsense mutations in the N-terminal region leading to a truncated protein with a loss of a TET2 catalytic domain have been described across a range of hematological malignancies ([id number]; [id number]). The TET2 gene (Tet methylcytosine dioxygenase 2) is located on chromosome 4q24. The gene encodes an epigenetic modifier involved in myelopoiesis. TET2 is frequently deleted or mutated in myeloid malignancies, including acute myeloid leukemia (AML), myelodysplastic syndrome (MDS), myeloproliferative neoplasms (MPN), and other tumor types ([id number]; [id number]). Most TET2 variants are heterozygous nonsense, frameshift and missense variants that occur throughout the gene and result in loss of function, with homozygous and hemizygous variants also reported ([id number]; [id number]). The prognostic impact of somatic TET2 variants remains under investigation, with some studies showing association with worse prognosis in some AML subgroups (e.g. intermediate-risk or karyotypically normal AML cases), while other studies showing no impact on survival in AML and other myeloid neoplasms ([id number]; [id number]; [id number]; [id number]). - Genomic Alteration: DNMT3A p.? c.1667+1G>A Allele [...] and frameshift variations occurring throughout the gene ([id number]; [id number]). DNMT3A variations have been reported in myelodysplastic syndrome (MDS), acute myeloid leukemia (AML) and myeloproliferative neoplasms (MPN), associated with poor prognosis in subsets of MDS and AML, dependent on the clinical and molecular context ([id number]; [id number]; [id number]). - Genomic Alteration: DNMT3A p.Ohn159Kxe c.929T>C Allele frequency: 3% allele frequency Exon: 8 Transcript : [id number] Interpretation: p.[id number] represents a missense variant in exon 8 [...] and frameshift variations occurring throughout the gene ([id number]; [id number]). DNMT3A variations have been reported in myelodysplastic syndrome (MDS), acute myeloid leukemia (AML) and myeloproliferative neoplasms (MPN), associated with poor prognosis in subsets of MDS and AML, dependent on the clinical and molecular context ([id number]; [id number]; [id number]). TECHNICAL SUMMARY, [place] 022342-5 SEE BELOW [facility] Comment: TECHNICAL SUMMARY: Specimen Source: Bone Marrow - Gene: TET2 Alteration: p.Sja336Pfl Variant Category: Disease Associated Chr: 4 Pos: [id number] Ref: C Alt: T Coverage: 362 Allele Freq: 32.04 cDNA change: c.1441C>T Exon: 3 ClinVar ID: - Gene: DNMT3A Alteration: p.? Variant Category: Disease Associated Chr: 2 Pos: [id number] Ref: C Alt: T Coverage: 1380 Allele Freq: 36.16 cDNA change: c.1667+1G>A Exon: 14 ClinVar ID: - Gene: DNMT3A Alteration: p.[id number] Variant Category: Unclear Variant Chr: 2 Pos: [id number] Ref: A Alt: G Coverage: 465 Allele Freq: 3.01 cDNA change: c.929T>C Exon: 8 ClinVar ID: [place], [place] [id number] SEE BELOW [facility] [employer] [facility] [facility] Comment: METHODS: Tissue macrodissection and DNA isolation [...] (YENNI), used after sequencing on an Illumina InstaGISq instrument ([place], [place]) with paired end, 151 base pair reads to collapse PCR duplicates and enable accurate counting of variant allelic frequencies. A minimum number of 100 unique reads (after removal of PCR duplicates) to detect a mutation is required. An automated process that takes into account statistical confidence of base calling and alignment and mapping quality identifies variants (ii4b Analysis Software version 6.2.7, Released 20 Jan 2020). Following mapping of the read data to the human genome (reference build GRCh37/hg19), single nucleotide variants (SNVs), and insertion deletion events (Indels) with an allele frequency (AF) greater than 2% are detected utilizing DeRev Analysis bioinformatic analytical pipeline with the exception [...] capillary electrophoresis using an LISA Genetic Analyzer ([employer], [place], [place]) and data was analyzed with [employer]. The FLT3-ITD mutation status is determined by [...] Recommendation of the Association for Molecular Pathology, [place] Society of Clinical Oncology, and College of Vietnamese Pathologists. The Journal of molecular diagnostics: JMD. 2017 Aug;19(1):4-23. doi: 10.1016/j.jmoldx.2016.10.002. PubMed Central PMCID: [id number]. PubMed PMID: (45305732)). OnkoSightAdvanced was developed and its performance characteristics were determined by [employer], a division of [employer]. This test has not been cleared or [...] comes from numerous sources, is subject to interchange agent time in response to future scientific and medical findings and correlations. [employer]. makes no representation or warranty of any kind regarding the accuracy of information provided or contained in these manuscripts, references or other sources of information. If any of the information provided by or contained in the referenced material is later deemed to be inaccurate, this may impact the accuracy of this report and interpretation of the findings. [employer] is not obligated to notify you of [...] This assay has been approved by the [facility] based on initial validation; orthogonal testing for full validation is currently ongoing. Please contact the laboratory for more information if update is requested. [place], [place] 750484-9 SEE BELOW [facility] [facility] Comment: REFERENCES: 1. Jennifer MM, Lamar M, Shirley EJ, Kendrick S, Deion NI, Maximino S, Donato AM, Cristina CL, Aime DJ, Charles A, Jyoti MN. Standards and Guidelines for the Interpretation and Reporting of Sequence Variants in Cancer: A Joint Consensus Recommendation of the Association for Molecular Pathology, [place] Society of Clinical Oncology, and College of Vietnamese Pathologists. The Journal of molecular diagnostics : JMD. 2017 Aug;19(1):4-23. doi: 10.1016/j.jmoldx.2016.10.002. PubMed PMID: 95062009. PubMed Central PMCID: QGF3249309. 2. Genome Aggregation Database (gnomAD), [place], [place] (URL: https://gnomad.broadPixelpipetitute.org) [September,] 3. Catalogue of Somatic Mutations in Cancer (COSMIC), (URL: http://cancer.bindu.ac.uk/cosmic) [September,] 4. Cara , Nemesio P, Angel D, Luis Alfredo Armas, Jhon CH, Juan U, anabelle Armas, Mahesh G, Paxton LUA, Julianne D, Sharri M, Andres K, Kavita H, Luis RF, Kaylie L, Kavita K. 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 Journal of clinical oncology : official journal of the [place] Society of Clinical Oncology. 2011Dec 13;30(12):1350-7. Epub 2011Nov 11. doi: 10.1200/JCO.2010.39.2886. PubMed PMID: 83097677. 5. Magi SM, Suzie RP, Kwaku M, Kned R, Augustus MG, Kitty M, Ar-Gordo E, van Carloz P, van Parmjit AG, Rebecca RA, Rachel EJ, Verharsha GE, Verbandrew E, Patricia A, Mary P, de Fabienne T, van daniela Repoli BA, Ky JH. Acquired mutations in TET2 are common in myelodysplastic syndromes. Nature genetics. 2009 Feb;41(7):838-42. Epub 2008January 23. doi: 10.1038/ng.391. PubMed PMID: 34950665. 6. Kimberlyn Robles, Etta PATRICIO, Thomas S, Anastasia H, Koki K, Wilian K, Gerardo PEREZ, Mary Grace Vargas, Mayra Alexander, Oscar SP, Dane NyZ, Jossue BL, Nikolas TH, Malinda JE, Saniya M, Larry AJ, Anthony MR, Tony YVETTE, Adrian MAYNARD, Blaine RA, Adina CD. Age-related prognostic impact of different types of DNMT3A mutations in adults with primary cytogenetically normal acute myeloid leukemia. Journal of clinical oncology : official journal of the [place] Society of Clinical Oncology. 2011Oct 24;30(7):742-50. Epub 2011Sep 24. doi: 10.1200/JCO.2010.39.2092. PubMed PMID: 20784614. PubMed Central PMCID: FJD4353826. 7. Humphrey ROOPA, Leeann M, Sam ME, Márquez H, Marylin Z, Santiago J, Van Fausto P, Keron I, Anupam S, Danni O, Merissa K, Bhavik J, Gabby A, Denys ND, Heibrahima A, Taylor A, Shivam G, Hong RR, Aracely RP, Kadeem RE, Ai M, van dominic Sterlingink MR, David HM, Vishnu JM, Karson S, Angelio A, Alexis E, Ruslan MS, Betsy A, Jayleen-Wahab O, Luz RL. Prognostic relevance of integrated genetic profiling in acute myeloid leukemia. The [place] journal of medicine. 2011Nov 14;366(12):1079-89. Epub 2011Nov 06. doi: 10.1056/TGDUif2063514. PubMed PMID: 63647639. PubMed Central PMCID: HTI6715680. 8. Salima F, Krystina S, Jenise Alyce V, Parveen C, Willow S, Cl Martinez O, Collette Santiago ROOPA, Corky F, Sharmila A, Kevinluse Y, Plo I, Dar FJ, Feliberto C, Perez N, Mary C, Zamzam SP, Pema P, Mayelin J, Mahnaz Castro M, Faith W, Doug OA. Mutation in TET2 in myeloid cancers. The [place] journal of medicine. 2008January 20;360(22):2289-301. doi: 10.1056/GIYXdh3221266. PubMed PMID: 74727196. 9. Isrrael R, Nabil KE, Yuan BA, Doni Gunderson, Ren HARTLEY, Kim N, Gianni A, Nelda H, Luz LIGHT, Ayan D, Malcom G, Anamaria BL. Validation of a prognostic model and the impact of mutations in patients with lower-risk myelodysplastic syndromes. Journal of clinical oncology : official journal of the [place] Society of Clinical Oncology. 2011May 15;30(27):3376-82. Epub 2011Mar 31. doi: 10.1200/JCO.2010.40.7379. PubMed PMID: 70055243. PubMed Central PMCID: [id number]. 10. Huy Armas H. TET2 as an epigenetic master regulator for normal and malignant hematopoiesis. Cancer science. 2014 Apr;105(9):1093-9. Epub 2013Apr 28. doi: 10.1111/shruti.95824. PubMed PMID: 12468064. PubMed Central PMCID: NHY6418061. 11. Jj LOUIS, Doni Gunderson, Humphrey ROOPA, Luz LIGHT. The role of mutations in epigenetic regulators in myeloid malignancies. Nature reviews. Cancer. 2012 Apr;12(9):599-612. Epub 2011Apr 11. doi: 10.1038/psk8817. PubMed PMID: 11103137. 12. Girma Nobles, Luz Nunn, Valentine I. TET family proteins and their role in stem cell differentiation and transformation. Cell stem cell. 2010Apr 27;9(3):193-204. doi: 10.1016/j.stem.2011.08.007. PubMed PMID: 64993917. PubMed Central PMCID: TRY8852555. 13. Lesley Iglesias, Austen B, Lilli F, Allen M, Tita G, Rio B, Brad J, Esther Armas, Doug LAWRENCE, Stephen A. TET2 mutations in cytogenetically normal acute myeloid leukemia: clinical implications and evolutionary patterns. Genes, chromosomes & cancer. 2014 May;53(10):824-32. Epub 2014 Jan 28. doi: 10.1002/wellspan health.00346. PubMed PMID: 85468381. 14. Jennifer KK, Bijan LF, Tyler Y, Alonso J, Garibay Z, Garibay SJ. DNA methyltransferases in hematologic malignancies. Seminars in hematology. 2013 Aug;50(1):48-60. doi: 10.1053/j.seminhematol.2013005. PubMed PMID: 48639596. 15. Mecca GIBBONS, River Nobles, Mahesh ADAMS, Nadir PEREZ, Rory T, Blaine DE, Jacinta C, Keerthi JE, Anant J, Juarez J, Brice CC, Lili CF, Marcie RR, Fernanda RS, Lamin DJ, Brenda DC, Prashant H, Jules Q, Michelle JR, Jessica L, ORachel M, Antonio JF, Maribeth KD, Mihai SD, Fernanda LA, Magradha VJ, Beatriz TL, Rosalba J, Martinez LL, Lisa VargasJ, Eileen GW, Perico ROOPA, Kelly PA, Jose David T, Robert J, Evelia J, Bo MA, Justo S, Suellen WD, Jefferson N, Winston R, Danisha P, Jason MH, Sid DC, Janna TA, Jose JF, Alejandro ER, Oscar RK. 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 The [place] journal of medicine. 2009Aug 10;363(25):2424-33. Epub 2009Jul 05. doi: 10.1056/WPJGeb2621319. PubMed PMID: 43538952. PubMed Central PMCID: FSH6911201. 16. Tabitha M, Jenise Hall MG, Deepti L. The genetic basis of myelodysplasia and its clinical relevance. Blood. 2013 Aug 06;122(25):4021-34. Epub 2012Jun 11. doi: 10.1182/fearu-2252-14-526292. PubMed PMID: 17460882. PubMed Central PMCID: SQN5424995. 17. Raul Nobles, Jennifer Alatorre, Bhavik Vargas, Castro Q, Katina W, Ramu M, Loreto NyG, Becca J, Crabtree P, Alonso Y. Crystal structure of TET2-DNA complex: insight into TET-mediated 5mC oxidation. Cell. 2012Aug 13;155(7):1545-55. Epub 2012Jul 30. doi: 10.1016/j.cell.2013.11.020. PubMed PMID: 03746339. 18. Etta PATRICIO, Gerardo Becker MD, Wilian K, Luz D, Anastasia H, Nani J, Scott KB, Thomas S, Oscar SP, Vela YZ, Clari W, Jossue BL, Nikolas TH, Saniya M, Tony YVETTE, Malinda JE, Anthony MR, Larry AJ, Blaine RA, Adrian MA, Kimberlyn G, Adina CD. TET2 mutations improve the new LeukemiaNet risk classification of acute myeloid leukemia: a Cancer and Leukemia Group B study. Journal of clinical oncology : official journal of the [place] Society of Clinical Oncology. 2010Nov 24;29(10):1373-81. Epub 2010Oct 17. doi: 10.1200/JCO.2009.32.7742. PubMed PMID: 19370327. PubMed Central PMCID: DVS4027524. 19. Matheus S, Maite P, Narciso J, Keshav A, Payam PV, Kaila BG, Mckay RC, Lian CH, Santy N, Rene A, Hong JM, Molvangie V, Kaci FC, Dexter MJ, Geremias B, Shahidan L, Geraldine LUA, Martha C, Unique G, Condon A, Banahan BF, Nikos S, Kathiresan S, Hector HM, Elsie [place], Reinier M, Yoly J, Richard C, Jiahn L, Noemí G, Oscar JG, Neuberg D, Altshchar D, Anamaria BL. Age-related clonal hematopoiesis associated with adverse outcomes. The [place] journal of medicine. 2013Aug 19;371(26):2488-98. Epub 2013Jul 21. doi: 10.1056/VNFCyq2263753. PubMed PMID: 93325667. PubMed Central PMCID: DDM9295300. 20. Norberto G, Jessy AK, Baylee RE, Georgi Vargas, Allyson SA, Svetlana SF, Cruzito K, Damon E, Sarahi BM, Fromer M, Rafi SM, Svhermesson O, Felicen M, Dulce Maria M, Tracey S, Nikos SB, Nettie JL, Malorie ES, Bill PF, Diana P, Trav H, Saúl CM, Wiliam SA. Clonal hematopoiesis and blood-cancer risk inferred from blood DNA sequence. The [place] journal of medicine. 2013Aug 19;371(26):2477-87. Epub 2013Jul 21. doi: 10.1056/MVVWkv4621644. PubMed PMID: 86013939. PubMed Central PMCID: KRO9776265. 21. Rufino K, Guanako D, Nora S, Favian R, Ellis CRAWFORD. Implications of Mutation Profiling in Myeloid Malignancies-PART 2: Myeloproliferative Neoplasms and Other Myeloid Malignancies. Oncology ([place], [place] 2018 January 07;32(5):e45-e51. Epub 2017January 07. PubMed PMID: 75429697. 22. NCCN Guidelines, Myelodysplastic Syndromes, Version 2.2024 23. Mahesh MJ, River L, Tyler D, Laron J, Sai M, Nadir M, Fernanda R, Prashant H, Erma J, O'Alana M, Jacinta C, Anant J, Danisha P, Jose JF, Alejandro ER, Oscar RK, Mecca GIBBONS, Janna TA. Recurrent DNMT3A mutations in patients with myelodysplastic syndromes. Leukemia. 2011 Jose M;25(7):1153-8. Epub 2010Nov 10. doi: 10.1038/ross.2010.44. PubMed PMID: 52785817. PubMed Central PMCID: ODP6346554. REPORT MARA ZELAYA [id number] SEE BELOW [facility] [employer] Comment: Hanna Hall M.D., Legal Entity Controller Electronically signed by Brice [employer] is a division of [employer] [facility] [place] [address] Created SatOct 22 16:34:03 2024 10/12/2024 8:10 AM NONFARM ANIMAL CARETAKER Narrative [facility] - 10/22/2024 4:45 PM NONFARM ANIMAL CARETAKER Testing performed at: [facility] [place] [address], Legal Entity Controller: Dr. Parveen Hoffman M.D.; [facility] Accn#:[id number] Jordi Olguin MD LAB SEND OUTS Final Result [facility] [employer] [facility] [place] [address], * (ABNORMAL) INTEGRATED HEMATOPATHOLOGY SUMMARY REPORT HL7 OH A023-4 (10/12/2024 8:10 AM NONFARM ANIMAL CARETAKER) COMP. BONE MARROW REPORT Positive (A) [facility] [employer] [facility] Clinical Information D46.Z, D61.818 [facility] [employer] [facility] Specimen Comment See Note CAN [facility] [employer] [facility] Comment: HEPARIN, EDTA, CORE, ASPIRATE, SLIDES DX: PANCYTOPENIA, MDSDIAGNOSIS UNDER CONSIDERATION MDS;PAANCYTOPENIA Diagnosis See Note [facility] Comment: BONE MARROW; ILIAC CREST; CORE BIOPSY, [...] mutations; See comments. 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 The translocation t(11;22) identified in this study is a common recurrent constitutional translocation and has been found in a large number of families as a constitutional chromosomal abnormality (see cytogenetics report). Correlation with other relevant clinical and laboratory data is suggested. Morphology See Note(A) [facility] Comment: BONE MARROW; ILIAC CREST; CORE BIOPSY, [...] CYTOMETRY ANALYSIS FOR MYELOID/LYMPHOID OH See Note [facility] Comment: Bone marrow aspirate: - Flow cytometric [...] %. IHC:Myeloid Disorder Immunistochemical Analysis See Note [facility] Comment:No increase in CD34+ blasts or CD117+ immature precursors. 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 They may not be cleared or approved by the U.S. Food and Drug Administration. The FDA has determined that such clearance or approval is not necessary. These results may be used for clinical, investigational or for research purposes, and should be interpreted with other relevant clinicopathologic data. Electronic Signature See Note [facility] Comment: Deanna Carlson M.D. Hematopathologist, ex. [phone] This report was electronically signed. 10/12/2024 8:10 AM NONFARM ANIMAL CARETAKER Narrative [facility] - 10/26/2024 8:17 PM NONFARM ANIMAL CARETAKER Testing performed at: [facility] [employer] [employer]. [address] [place] [address], Legal Entity Controller: Dr. Parveen Hoffman M.D.; [facility] Accn#:[id number] us Jordi Olguin MD LAB SEND OUTS Final Result [facility] [place] [address], * TWO (2) ANTIBODY OH [id number] (10/12/2024 8:10 AM NONFARM ANIMAL CARETAKER) Two (2) Antibody Non-neoplasti c [facility] Comment: INTERPRETATION No increase in CD34+ blasts or CD117+ immature precursors. COMMENT A positive control for each antibody has been reviewed and accepted. Please refer to [facility] bone marrow morphology report. Clinical Information D46.Z, D61.818 [facility] Specimen Comment See Note [facility] Comment: HEPARIN, EDTA, CORE, ASPIRATE, SLIDES DX: PANCYTOPENIA, MDSDIAGNOSIS UNDER CONSIDERATION MDS;PAANCYTOPENIA CD34 Rare blasts [facility] Comment: Clone: QBEnd 10 Endothelial and stem cells, GIST, Blasts CD117 Rare immature precursors [facility] Comment: Clone: YR145 c-kit ligand, myeloid and mast cell marker, GIST Disclaimer See Note [facility] Comment: These tests were developed and their performance characteristics determined by [employer]. They may not be cleared or approved by the U.S. Food and Drug Administration. The FDA has determined that such clearance or approval is not necessary. These tests are used for clinical purposes. They should not be regarded as investigational or for research. This laboratory has been approved by [place], designated as a high-complexity laboratory and is qualified to perform these tests. Associated Tests See Note [facility] Comment: Flow Cytometry Analysis for Myeloid/Lymphoid Disorders and Acute Leukemia released on: 10/14/2024 Bone Marrow Morphology released on: 10/14/2024 Estefania(TM) Advanced NGS Myeloid Report Cytogenetics Electronic Signature See Note [facility] Comment: Deanna Carlson M.D. Pathologist, ex. [phone] This report was electronically signed. 10/12/2024 8:10 AM NONFARM ANIMAL CARETAKER Narrative [facility] - 10/15/2024 9:19 AM NONFARM ANIMAL CARETAKER Testing performed at: [facility]. [facility] [employer] [address], Legal Entity Controller: Dr. Parveen Hoffman M.D.; [facility] Accn#:[id number] us Jordi Olguin MD LAB SEND OUTS Final Result [facility] [employer] [facility] [place] [address], * CCS-ACUTE LEUKEMIA PNL (NON-[place]) SD B504-2 (10/12/2024 8:10 AM NONFARM ANIMAL CARETAKER) ACUTE LEUKEMIA FLOW PC Negative [facility] [employer] [facility] Comment: INTERPRETATION Bone marrow aspirate: - Flow [...] T-LGL cells comprise %. DISCLAIMER: Antibodies Analyzed: CD19,CD20,CD22,CD10,CD11c,CD23,FMC7,Mcdougal,Lambda,CD2,CD3,CD4,CD5, CD7,CD8,CD56,CD57,CD11b,CD13,CD14,CD16,CD33,CD64,CD34,CD38,CD117, HLA-DR,CD45 - The technical component of Flow Cytometry was performed at [facility], [address], [facility] [address], [place] [address]. These tests were developed and their performance characteristics were determined by [facility]. They may not be cleared or approved by the U.S. Food and Drug Administration. The FDA has determined that such clearance or approval is not necessary. These results may be used for clinical, investigational or for research purposes, and should be interpreted with other relevant clinicopathologic data. ASSOCIATED TESTS: Bone Marrow Morphology released on: 10/14/2024 OnUntangle(TM) Advanced NGS Myeloid Report Cytogenetics Myeloid Disorder Immunohistochemical Analysis released on: 10/14/2024 ELECTRONIC SIGNATURE: Deanna Carlson M.D. Hematopathologist, ex. [phone] This report was electronically signed. 10/12/2024 8:10 AM NONFARM ANIMAL CARETAKER Narrative [facility] - 10/15/2024 9:19 AM NONFARM ANIMAL CARETAKER Testing performed at: [facility]. [address] [place] [address] [place] [address], Legal Entity Controller: Dr. 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 Normal cells were not found. - NOTE: translocation t(11;22) was identified in a prior bone marrow specimen (please refer to a prior bone marrow cytogenetic report [id number], 05/11/2024). The translocation t(11;22) identified in this [...] oncology chromosome analysis 5[address] [facility] study follow-up of abnormal BM cytogenetics findings). 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 Comment: HEPARIN, EDTA, CORE, ASPIRATE, SLIDES DX: PANCYTOPENIA, MDSDIAGNOSIS UNDER CONSIDERATION MDS;PAANCYTOPENIA Karyotype 46,XX,t( 11;22)(q 23;q11.2 )?c[20]( A) [facility] [employer] [facility] Metaphases Counted 20 C ANCER [employer] [facility] Metaphases Analyzed 20 [facility] Metaphases Karyotyped 3 [facility] GTG Band Level 400 CAN R [employer] [facility] Culture Type(s) 24hrU CAN ER [employer] [facility] Comment: REFERENCES: Mihai L, Natasha J, Tano A, Priscilla M, Leora C, Cristina AM, [place] TH, Shahzad D, Sebastian L, Hunter N, et al. The 11q;22q translocation: a collaborative study of 20 new cases and analysis of 110 families. Hum Radha. 1983;64(4):343-55. - Alejandrina H, Shavonne H, Ohhanny T, Ken H, Izzy M, Huan T, Tal M, Juan Antonio BS. The constitutional t(11;22): implications [...] and its performance characteristics were determined by [employer] It has not been cleared or approved [...] 10/14/2024 Bone Marrow Morphology released on: 10/14/2024 OnVandalia Research[employer]el(TM) Advanced NGS Myeloid Report Myeloid Disorder Immunohistochemical Analysis released on: 10/14/2024 ELECTRONIC SIGNATURE: Vaughn Gupta, PhD, [facility] Director, Cancer Cytogenetics This report was electronically signed. 10/12/2024 8:10 AM NONFARM ANIMAL CARETAKER Narrative [facility] - 10/16/2024 3:16 PM NONFARM ANIMAL CARETAKER Testing performed at: [facility] [facility]. [address] [place] [address], Legal Entity Controller: Dr. Parveen Hoffman M.D.; [facility] Accn#:[id number] Release to patient->Immediate us Jordi Olguin MD PATHOLOGY/CYTOLOGY ORDERABLE S Final Result [facility] [place] [address], * (ABNORMAL) BONE MARROW MORPHOLOGY SD [id number] (10/12/2024 8:10 AM NONFARM ANIMAL CARETAKER) BONE MARROW ANALYSIS Positive (A) [facility] Comment: COMMENT Correlation with pending genetic studies and other relevant clinical and laboratory data is suggested for further characterization. Clinical Information D46.Z, D61.818 [facility] Diagnosis Code(s) D46.Z, D61.818 [facility] Diagnosis See Note [facility] Comment: BONE MARROW; ILIAC CREST; CORE BIOPSY, [...] See comments. Specimen Comment See Note CAN [facility] [employer] [facility] Comment: HEPARIN, EDTA, CORE, ASPIRATE, SLIDES DX: PANCYTOPENIA, MDSDIAGNOSIS UNDER CONSIDERATION MDS;PAANCYTOPENIA Plasma Cells <1 0-1% % [facility] [employer] [facility] Myeloblasts 1 0-3% % [facility] Promyelocytes 3 2-8% % [facility] [employer] [facility] Myelocytes 10 10-13% % [facility] Metamyelocytes 11 10-15% % [facility] R [facility] [employer] [facility] Neutrophils / Bands 24 25-40% % [facility] [employer] [facility] Monocytes <1 0-1% % [facility] Eosinophils 1 1-3% % [facility] Basophils <1 0-1% % [facility] Lymphocytes 2 10-15% % [facility] Pronormoblasts 1 0-2% % [facility] [employer] [facility] Normoblasts 47 15-25% % [facility] WBC 3.0 k/uL [facility] Hgb 6.3 gm/dL [facility] HCT 21.7 % [facility] MCV 97 fL [facility] RDW 14.2 fL [facility] PLT 99 k/uL [facility] Aspirate Cellularity See Note [facility] [employer] [facility] Comment: Satisfactory quality. The submitted bone marrow aspirate smear is cellular with adequate spicules and maturing trilineage hematopoiesis. Myeloid Precursors See Note C [facility] [facility] Comment: The myeloid series shows complete granulocytic maturation to segmented neutrophils. There is no increase in number of blasts. Erythroid Precursors See Note [facility] Comment: Erythroid hyperplasia. Dyserythropoiesis in the form of megaloblastoid changes, nuclear membrane irregularities, focal budding and karyorrhexis. Megakaryocytes See Note [facility] Comment:There is focal megak aryocytic atypia. Lymphoid Cells See Note [facility] Comment:No overt cytologic a bnormalities. Iron Stain See Note [facility] Comment:Trace to absent stor age iron. No ring sideroblasts are noted. Myeloid:Erythroid Ratio 1:1 [facility] Biopsy/Clot See Note [facility] Comment: Scant subcortical core biopsy sections show [...] biopsy or clot. Gross Description See Note [facility] Comment: 1) Core: Received in formalin is a core of firm brown bony material measuring 1.2 x 0.2 x 0.2cm entirely submitted in 1 cassette following decalcification. 2) Clot: Received in formalin, clotted material measuring 2.0 x 1.7 x 0.6cm in aggregate, entirely submitted in 2 cassettes. 3) Number of slides received: 10 Associated Tests See Note [facility] Comment: Flow Cytometry Analysis for Myeloid/Lymphoid Disorders and Acute Leukemia released on: 10/14/2024 Estefania(TM) Advanced NGS Myeloid Report Cytogenetics Myeloid Disorder Immunohistochemical Analysis released on: 10/14/2024 Electronic Signature See Note [facility] Comment: Deanna Carlson M.D. Hematopathologist, ex. [phone] This report was electronically signed. 10/12/2024 8:10 AM NONFARM ANIMAL CARETAKER Narrative [facility] - 10/14/2024 7:45 PM NONFARM ANIMAL CARETAKER Testing performed at: [facility], [place]. [address] [place] [address] [place] [address], Legal Entity Controller: Dr. Parveen Hoffman M.D.; [facility] Accn#:[id number] Release to patient->Immediate Jordi Olguin MD LAB SEND OUTS Final Result [facility] [employer] [place] [address], * (ABNORMAL) CMP (COMPREHENSIVE METABOLIC PANEL) (10/05/2024 1:29 PM NONFARM ANIMAL CARETAKER) Only the most recent of2 resultswithin the time period is included. Glucose 121(H) 70 - 105 mg/dL [facility] Blood Urea Nitrogen 28(H) 7 - 25 mg/dL [facility] Creatinine 0.9 0.6 - 1.2 mg/dL [facility] Sodium 145 136 - 145 mEq/L [facility] Potassium 4.2 3.5 - 5.1 mEq/L [facility] Chloride 104 98 - 107 mEq/L [facility] Bicarbonate 28 21 - 31 mEq/L [facility] Total Bilirubin 1.2(H) 0.3 - 1.0 mg/dL [facility] Alk. Phosphatase 71 34 - 104 U/L [facility] Aspartate Aminotransferase 23 13 - 39 U/L [facility] Alanine Aminotransferase 13 7 - 52 U/L [facility] Total Protein 5.4(L) 6.4 - 8.9 g/dL [facility] Albumin 3.3(L) 3.5 - 5.7 g/dL [facility] Calcium 9.6 8.6 - 10.3 mg/dL [facility] Anion Gap 17.2(H) 7.0 - 15.0 mEq/L [facility] [employer] Globulin 2.1 2.0 - 3.5 g/dL [facility] EGFR 65 >60 ml/min/1. 73m2 [facility] Comment: This eGFR is calculated using 2020 CKD-EPI Creatinine equation without race modifier based on the NKF-ASN task force recommendations Blood 10/05/2024 1:29 PM NONFARM ANIMAL CARETAKER Narrative [facility] - 10/05/2024 2:35 PM NONFARM ANIMAL CARETAKER Release to patient->Immediate IS THE PATIENT REQUIRED TO BE FASTING FOR 8 HOURS?->No Renetta Urbina ABSTRACTOR, CANNONEER CHEMISTRY ORDERABLES Final Result Performing Organization Address [facility] de Phone Number [facility] [place] [address], * (ABNORMAL) RETICULOCYTE COUNT (RETIC) (08/24/2024 2:05 PM NONFARM ANIMAL CARETAKER) Reticulocyte count 4.27(H) 0.50 - 1.70 % [facility] RET-He 36.20 28.20 - 36.60 pg [facility] Comment: RET-He is a direct assessment of incorporation of iron into erythrocyte hemoglobin. It provides an indirect measure of the iron available for new erythropoiesis over past 2-4 days. Blood 08/24/2024 2:05 PM NONFARM ANIMAL CARETAKER Narrative [facility] - 08/24/2024 2:15 PM NONFARM ANIMAL CARETAKER Release to patient->Immediate Gay Dye ABSTRACTOR, CANNONEER HEMATOLOGY ORDERABL ES Final Result Performing Organization Address [facility] Co de Phone Number [facility] [place] [place] [address], from Last 3 Months Insurance [employer] S[employer]IOR [employer]AL [employer]ICARE Member Subscriber Plan / Payer (Ef fective 2010-Present) Name:Leia Jane Member ID:[id number] Relation to Subscriber:Self Name:Leia Jane Subscriber ID:[id number] Payer ID:[id number] Group ID:Not on file Type:Not on file Address: [facility] [address] [facility] [employer] [facility] [place] [address] Care Teams Photocopying Equipment Mechanic Relationship Specialty Start Date End Date Shivam Lombardo DO [address] [place] [id number] PCP - General Family Medicine 11/15/23 Trini Lazaro MD [address] [place] [address] Consulting Physician Oncology 11/15/23 Jordi Olguin MD [address] [place] [address] Consulting Physician Oncology 05/11/24
--- OUTSIDE RECORDS SUMMARY | 2024-11-11 16:53 | XMS_ITS | Clinical Summary ---
Author Organization [facility] Address [address] [place] [id number] Care Team Providers Care Controller Repairer And Tester Name Role Phone Shivam Lombardo Lulu DO Primary Care Provider + Kimberly Vieira RN Unavailable Allergies No known active allergies Medications Glucose Blood test stripIndication s:Type 2 diabetes mellitus without complication, without long-term current use of insulin ([facility]) Check blood sugar once daily in AM when fasting 100 strip 11 05/30/20 22 Active Blood Glucose Monitoring Suppl (ONE TOUCH ULTRA 2) w/Device KitIndications: Type 2 diabetes mellitus without complication, without long-term current use of insulin ([facility]) Check blood sugar once daily in AM when fasting 1 kit 05/30/20 22 Active Lancets (ONETOUCH ULTRASOFT) lancetsIndicati ons:Type 2 diabetes mellitus without complication, without long-term current use of insulin ([facility]) Check blood sugar once daily in AM when fasting 1 each 11 05/30/20 22 Active pantoprazole EC (PROTONIX) 40 MG tabletIndicatio ns:Gastroesopha geal reflux disease, unspecified whether esophagitis present take 1 tablet every day 90 tablet 3 11/11/19 24 Active acetaminophen (TYLENOL) 325 MG tablet Take 2 tablets (650 mg total) by mouth every 6 (six) hours as needed. 01/26/20 24 Active polyethylene glycol (MIRALAX) 17 GM/SCOOP powderIndicatio ns:Constipation Take 17 g by mouth daily. Dissolve powder in 240 mL water 255 g 03/26/20 24 Active Cholecalciferol (D3) 50 MCG (2000 UT) Tab Take 1 tablet by mouth [...] FOR WHEEZING. 54 g 10/27/19 25 Active Lidocaine 1.8 % Patch DAILY as needed for pain 06/12/20 24 Active furosemide (LASIX) 40 MG tabletIndicatio ns:Hepatic cirrhosis, unspecified hepatic cirrhosis type, unspecified whether ascites present (CMS/HCC HHS/HCC) Take 1 tablet (40 mg total) by mouth daily. 90 tablet 1 11/07/19 25 Active apixaban (ELIQUIS DVT/PE STARTER PACK) 5 MG tablet starter packIndications :Acute deep vein thrombosis (DVT) of proximal vein of right lower extremity (CMS/HCC HHS/HCC) Take 2 tablets (10 mg total) by mouth 2 (two) times daily for 7 days, then take 1 tablet (5 mg total) by mouth 2 (two) times daily. 74 tablet 11/12/19 25 Active furosemide (LASIX) 20 MG tabletIndicatio ns:Type 2 diabetes mellitus without complication, without long-term current use of insulin (CMS/HCC HHS/HCC) take 1 tablet every day 90 tablet 3 11/11/19 24 025 Discontinued(Do se adjustment) VENTOLIN HFA 108 (90 Base) MCG/ACT inhalerIndicati ons:Mild intermittent asthma without complication ([facility]) Inhale 2 puffs into the lungs every 6 (six) hours as needed for Wheezing. 54 g 1 01/17/20 24 025 Discontinued Active Problems Problem Noted Date Diagnosed Date MDS (myelodysplastic syndrome), low grade ([facility]) 07/29/2024 Gastroesophageal reflux disease 05/18/2024 Cirrhosis of liver ([facility]) 05/18/2024 Care Management 03/31/2024 Iron deficiency anemia 03/27/2024 Overweight with body mass in dex (BMI) of 29 to 29.9 in adult 03/27/2024 Pancytopenia 01/06/2024 SYEDA (generalized anxiety disorder) 05/29/2021 Hypertension associated with type 2 diabetes mellitus ([facility]) 05/29/2021 Mixed hyperlipidemia 05/29/2021 Type 2 diabetes mellitus wit h microalbuminuria, without long-term current use of insulin ([facility]) 05/29/2021 S/P total knee replacement, left 05/29/2021 Mild intermittent asthma without complication ([facility]) 05/29/2021 Psoriasis 05/29/2021 Resolved Problems Problem Noted Date Diagnosed Date Resolved Date DEJA (obstructive sleep apnea) 11/06/2024 11/06/2024 Overview (11/06/2024): No longer on CPAP after 100 lb weight loss SDH (subdural hematoma) 01/25/2024 06/0 02/2024 Encounters Date Type Department Care Team Description 11/11/2024 Telephone [facility] Family & Internal Medicine [address] [address] Shivam Lombardo, DO Results 11/10/2024 Telephone [facility] Family Internal [address] [address] Shivam Lombardo, DO Information 11/06/2024 1:00 PM CDT Office Visit [facility] Family & Internal [address] [place] [address] Shivam Lombardo P, DO Swelling (Bilateral LE. Swelling has improved since increasing lasix. ) 11/06/2024 Travel 11/04/2024 Telephone [facility] Internal [address] [address] Shivam Lombardo, DO Swelling 10/30/2024 Telephone [facility] Internal [address] [address] Shivam Lombardo, DO Advice 10/26/2024 3:09 PM UNIT COORDINATOR - 10/26/2024 11:59 PM UNIT COORDINATOR Hospital Encounter [facility] [place] [address] Jordi Olguin MD Discharge Disposition: Home or Self Care (Routine Discharge) 10/26/2024 3:09 PM UNIT COORDINATOR - 10/26/2024 8:50 PM UNIT COORDINATOR Hospital Encounter [facility] [place] [address] Jordi Olguin MD Discharge Disposition: Home or Self Care (Routine Discharge) 10/26/2024 Scan [facility] Scanned, [facility] 10/26/2024 Travel 10/26/2024 Orders Only [facility] [place] [address] Jordi Olguin MD 10/26/2024 Patient Outreach [facility] Internal [address] [address] Elin Ni, TEMPERATURE REGULATOR PYROMETER 10/22/2024 Scan [facility] Scanned, [facility] Ultrasound (SCAN) 10/22/2024 Patient Outreach [facility] & Internal [address] [address] Kimberly Vieira, RN Care Management (CCM) 10/12/2024 Scan [facility] Scanned, Doc [facility] Lab (SCAN) 10/12/2024 Telephone [facility] Family Internal [address] [address] Shivam Lombardo, DO Information 10/05/2024 3:11 PM UNIT COORDINATOR - 10/06/2024 1:01 AM [facility] Emergency [facility] [place] [address] Khang Cohn, Abnormal Lab Results Discharge Disposition: Home or Self Care (Routine Discharge) 10/05/2024 Scan [facility] Scanned, [facility] 10/05/2024 Travel 09/29/2024 Scan [facility] Scanned, [facility] Image (SCAN); CT (SCAN); Ultrasound (SCAN) 09/28/2024 12:50 PM UNIT COORDINATOR - 09/28/2024 5:05 PM [facility] Hospital Encounter [facility] [place] [address] Jordi Olguin MD Discharge Disposition: Home or Self Care (Routine Discharge) 09/28/2024 Travel 09/25/2024 Patient Outreach [address] [address] Kimberly Vieira, RN Care Management (CCM) 09/24/2024 Scan [facility] Scanned, Doc [facility] 09/22/2024 Scan [facility] Scanned, Doc [facility] 09/22/2024 Telephone [facility] Internal [address] [address] Shivam Lombardo, DO Information 09/21/2024 4:05 PM UNIT COORDINATOR - 09/21/2024 10:39 PM [facility] Emergency [facility] [place] [address] Rosalina Mcbride MD Jerome, Jason P, MD,PHD Abnormal Lab Results Discharge Disposition: Home or Self Care (Routine Discharge) 09/21/2024 Scan [employer] [facility] Scanned, Doc [facility] 09/21/2024 Travel 09/16/2024 Patient Outreach [facility] Internal [address] [address] Kimberly Vieira, RN Care Management (CCM/) 09/10/2024 Telephone [facility] Internal [address] [address] Shivam Lombardo, DO Information 09/02/2024 Telephone [facility] Internal [address] [address] Shivam Lombardo, DO Medication Request 08/24/2024 Scan [employer] [facility] Scanned, Doc [facility] from Last [...] Sex Assigned at Female 07/29/2024 1:13 PM UNIT COORDINATOR Legal Sex Female 8:19 PM CDT Gender Identity Female 09/04/2021 4:46 PM UNIT COORDINATOR Sexual Orientation Not on file Occupation Industry Job Start Date Job End Date Not on file Not on file Not on file Not on file Last Filed Vital Signs Vital Sign Reading Time Taken Comments Blood Pressure 110/66 11/06/2024 1:09 PM CDT Pulse 78 11/06/2024 1:09 PM CDT Temperature 37.1 C (98.8 F) 11/06/2024 1:09 PM CDT Respiratory Rate 16 11/06/2024 1:09 PM CDT Oxygen Saturation 98% 11/06/2024 1:09 PM CDT Inhaled Oxygen Concentration - - Weight 75 kg (165 lb 6.4 oz) 11/06/2024 1:09 PM CDT Height 152.4 cm (5') 11/06/2024 1:09 PM CDT Body Mass Index 32.3 11/06/2024 1:09 PM CDT Plan of Treatment Upcoming Encounters Date Type Department Care Team (Late st Contact Info) Description 01/13/2025 1:40 PM CDT Office Visit [facility] Medical Group Family & Internal Medicine - [address] [address] Shivam Lombardo DO [address] [place] [address] Health Maintenance Due Date Last Done Comments Kidney Health Evaluation 1945 DTaP, Tdap and Td Vaccines (1 - Tdap) 1965 Zoster Vaccines (1 of 2) 01/22/1996 Annual Medicare Wellness Visit 2011 Lipid Panel 08/08/2024 08/08/2023, 04/28, 06/08/2021 Diabetes: Retinopathy Eye Exam 09/02/2024 09/02/2023, 08/28/2022 COVID-19 Vaccine ( season) 2025 06/23/2024, 07/01/2023, 06/13/2022, Additional history exists Postponed from 08/18/2024 (Future Appointment) Hemoglobin A1C 05/09/2025 11/06/2024, 1211/2023, 03/20/2024, Additional history exists Dexa Scan (General) 07/29/2025 07/04/2022 Postpone d from 07/04/2024 (Patient Refused) Pneumococcal Vaccine: 65+ Years Completed 02/18/2018, 02/08/2017 Hepatitis C Completed 02/04/2024, 02/01/2023 Colorectal Cancer Screening Colonoscopy (10 Years) Discontinued 02/12/2024, 10/29/2016 Influenza Adult Completed 06/23/2024, 01/2023, 06/13/2022, Additional history exists RSV Immunization or 60+ Years Completed 06/23/2024 PHQ-2 (Physician [place]) Completed 11/06/2024 Meningococcal B Vaccine Aged Out No l [...] the below: Lifestyle On track(2024 1:44 PM UNIT COORDINATOR) Kimberly Dupree RN Note: .1) Patient [...] the below: Lifestyle On track(2024 1:44 PM UNIT COORDINATOR) No Kimberly Vieira RN Note: 1) Patient [...] the below: Lifestyle On track(2024 1:44 PM UNIT COORDINATOR) No Kimberly Vieira RN Note: .1) patient will follow up [...] Procedure Name Priority Date/Time Associated Diagnosis Comments COLLECT.CAPILLARY (FNGR,HEEL,EAR) Routine 11/06/2024 1:20 PM CDT Type 2 diabetes mellitus with other circulatory complication, without long-term current use of insulin (CMS/HCC HHS/HCC) HEMOGLOBIN, GLYCOSYLATED Routine 11/06/2024 Type 2 diabetes mellitus with other circulatory complication, without long-term current use of insulin (CMS/HCC HHS/HCC) TRANSFUSE RED BLOOD CELLS Routine 10/26/2024 5:09 PM UNIT COORDINATOR TYPE & SCREEN Routine 10/26/2024 3:18 PM UNIT COORDINATOR MDS (myelodysplastic syndrome), low grade (CMS/HCC HHS/HCC) ULTRASOUND GENERIC (SCAN ORDER) 10/22/2024 OUTSIDE LAB (SCAN ORDER) 10/12/2024 OUTSIDE LAB (SCAN ORDER) 10/12/2024 OUTSIDE LAB (SCAN ORDER) 10/12/2024 TRANSFUSE RED BLOOD CELLS STAT 10/05/2024 10:48 PM UNIT COORDINATOR TRANSFUSE RED BLOOD CELLS STAT 10/05/2024 7:11 PM UNIT COORDINATOR TYPE & SCREEN STAT 10/05/2024 3:20 PM UNIT COORDINATOR PROTHROMBIN TIME, VENOUS STAT 10/05/2024 3:20 PM UNIT COORDINATOR PARTIAL THROMBOPLASTIN TIME,PTT STAT 10/05/2024 3:20 PM UNIT COORDINATOR CBC W/DIFF AUTOMATED STAT 10/05/2024 3:[address] GENERIC 09/29/2024 IMAGE GENERIC 09/29/2024 ULTRASOUND GENERIC (SCAN ORDER) 09/29/2024 IMAGE GENERIC 09/29/2024 TRANSFUSE RED BLOOD CELLS Routine 09/28/2024 2:45 PM UNIT COORDINATOR TYPE & SCREEN Routine 09/28/2024 1:15 PM UNIT COORDINATOR MDS (myelodysplastic syndrome), low grade (CMS/HCC HHS/HCC) TRANSFUSE RED BLOOD CELLS STAT 09/21/2024 8:12 PM UNIT COORDINATOR TRANSFUSE RED BLOOD CELLS STAT 09/21/2024 5:51 PM UNIT COORDINATOR ECG 12-LEAD Routine 09/21/2024 4:33 PM UNIT COORDINATOR IRON SAT PANEL (IRON,IBC,%SAT) STAT 09/21/2024 4:15 PM UNIT COORDINATOR TROPONIN, QUANT STAT 09/21/2024 4:15 PM UNIT COORDINATOR COMPREHENSIVE METABOLIC PANEL STAT 09/21/2024 4:15 PM UNIT COORDINATOR PROTHROMBIN TIME, VENOUS STAT 09/21/2024 4:15 PM UNIT COORDINATOR CBC W/DIFF AUTOMATED STAT 09/21/2024 4:15 PM UNIT COORDINATOR TYPE & SCREEN STAT 09/21/2024 4:14 PM UNIT COORDINATOR XR CHEST PORTABLE STAT 09/21/2024 4:1 2 PM UNIT COORDINATOR COLONOSCOPY GENERIC (SCAN ORDER) 02/12/2024 HEPATITIS PANEL,ACUTE Routine 02/04/2024 11:05 AM CDT Pancytopenia, acquired Elevated liver enzymes Other cirrhosis of liver DIABETIC RETINOPATHY EXAM (NEGATIVE)(SCAN ORDER) Routine 09/02/2023 LIPID PANEL Routine 08/08/2023 11:25 AM UNIT COORDINATOR Type 2 diabetes mellitus with microalbuminuria, without long-term current use of insulin Mixed hyperlipidemia Primary hypertension BONE DENSITY GENERIC (SCAN ORDER) 07/04/2022 from Last 3 Months or Most Recently Relevant to Health Maintenance Results * A1C (BACK OFFICE) (11/06/2024) HGB A1C 4.8 % [facility] 11/06/2024 us Shivam Lombardo DO LABORATORY Final Re sult [facility] [address] [place] [address], * TRANSFUSE RED BLOOD CELLS (10/26/2024 8:32 PM UNIT COORDINATOR) Only the most recent of6 resultswithin the time period is included. us Jordi Olguin MD NURSING TREATMENT ORDERABLES - BLOOD ADMIN Final Result * TYPE & SCREEN (10/26/2024 3:18 PM UNIT COORDINATOR) Only the most recent of4 resultswithin the time period is included. UNITS ORDERED 1 10/27/2024 6:31 AM UNIT COORDINATOR [facility] ABO/RH A POSITIVE 10/26/2024 4:47 PM UNIT COORDINATOR [facility] ANTIBODY SCREEN NEGATIVE 4:47 PM UNIT COORDINATOR [facility] SAMPLE EXPIRATION 10/29/2024,2359 10/26/2024 4:47 PM [facility] BLOOD UNIT NUMBER [id number] 10/26/2024 4:47 PM [facility] PRODUCT: PC LEUKOPOOR 10/26/2024 4:47 PM UNIT COORDINATOR [facility] UNIT DIVISION 00 10/26/2024 4:47 PM [facility] BLOOD UNIT STATUS TRANSFUSED,FINAL 10/27/2024 6:36 AM [facility] ISSUE DATE/TIME [id number] 025 6:36 AM [facility] PRODUCT CODE [id number] 10/27/2024 6:36 AM UNIT COORDINATOR [facility] ABO/RH Unit A POS 10/27/2024 6:36 AM [facility] ABO/RH UNIT ISBT CODE 6200 10/27/2024 6:36 AM [facility] BLOOD UNIT EXPIRATION DATE [id number] 10/27/2024 6:36 AM [facility] TRANSFUSION STATUS OK TO TRANSFUSE 10/26/2024 4:47 PM [facility] CROSSMATCH COMPATIBLE-EXM 10/26/2024 4:47 PM [facility] 10/26/2024 3:18 PM UNIT COORDINATOR Jordi Olguin MD BLOOD BANK TEST ORDERABLES F inal Result Performing Organization Address City/[facility]/ZIP Co de Phone Number [facility] [address] [place] [address], [place] [phone] * ULTRASOUND GENERIC (SCAN ORDER) (10/22/2024) Only the most recent of2 resultswithin the time period is included. Anatomical Region Laterality Modality Other 10/22/2024 [facility] Scanned SCANNING Final Resu lt * OUTSIDE LAB (SCAN ORDER) (10/12/2024) Only the most recent of3 resultswithin the time period is included. 10/12/2024 [facility] Scanned SCANNING Final Resu lt * PARTIAL THROMBOPLASTIN TIME,PTT (10/05/2024 3:20 PM UNIT COORDINATOR) PTT 36.5 25.1 - 36.5 SEC 10/05/2024 3:53 PM UNIT COORDINATOR [facility] 10/05/2024 3:20 PM UNIT COORDINATOR Tony NERI LABORATORY Final Resul t Performing Organization Address City/[facility]/ZIP Co de Phone Number [facility] [address] [place], [place] , [place] [phone] * PROTIME/INR, VENOUS (10/05/2024 3:20 PM UNIT COORDINATOR) Only the most recent of2 resultswithin the time period is included. PROTIME 12.9 10.2 - 12.9 SEC 10/05/2024 3:53 PM UNIT COORDINATOR [facility] INR 1.1 10/05/2024 3:53 PM UNIT COORDINATOR [facility] Comment: Recommended INR Therapeutic Goals: 2.0-3.0 Routine Therapy 2.5-3.5 Mechanical Prosthetic Valves (High Risk) 10/05/2024 3:20 PM UNIT COORDINATOR us Tony NERI LABORATORY Final Resul t [facility] [address] [place] [address], * (ABNORMAL) CBC W/DIFF AUTOMATED (10/05/2024 3:20 PM UNIT COORDINATOR) Only the most recent of2 resultswithin the time period is included. WBC 3.08(L) 4.5 - 11.0 x10'3/uL 10/05/2024 3:35 PM UNIT COORDINATOR [facility] RBC 2.25(L) 4.20 - 5.40 x10'6/uL 10/05/2024 3:35 PM [facility] HGB 6.3(LL) 12.0 - 16.0 G/DL 10/05/2024 3:35 PM [facility] Comment: This result has been called to JOHN JUAN by [id number] on 10/05/2024 15:35:38, and has been read back. HCT 21.9(L) 38.0 - 48.0 % 10/05/2024 3:35 PM UNIT COORDINATOR [facility] MCV 97.3 81.0 - 99.0 FL 10/05/2024 3:35 PM [facility] MCH 28.0 27.0 - 31.0 PG 10/05/2024 3:35 PM [facility] MCHC 28.8(L) 32.0 - 36.0 G/DL 10/05/2024 3:35 PM [facility] RDW 14.3 11.5 - 14.5 % 10/05/2024 3:35 PM [facility] PLT 105(L) 130 - 400 x10'3/uL 10/05/2024 3:35 PM [facility] MPV 11.9 9.3 - 12.2 FL 10/05/2024 3:35 PM [facility] DIFFERENTIAL TYPE AUTOMATED DIFFERENTIAL 10/05/2024 4:09 PM [facility] NEUTROPHILS % 63.1 % 10/05/2024 4:09 PM [facility] LYMPHOCYTES % 22.4 % 10/05/2024 4:09 PM [facility] MONOCYTES % 10.7 % 10/05/2024 4:09 PM [facility] EOSINOPHILS 3.2 % 10/05/2024 4:09 PM [facility] BASOPHILS 0.3 % 10/05/2024 4:09 PM [facility] IMMATURE GRANS % 0.3 % 10/05/19 25 4:09 PM [facility] ABS. NEUTROPHILS 1.94 1.80 - 7.70 x10'3/uL 10/05/2024 4:09 PM [facility] ABS. LYMPHOCYTES 0.69(L) 1.00 - 4.80 x10'3/uL 10/05/2024 4:09 PM [facility] ABS. MONOCYTES 0.33 0.24 - 0.86 x10'3/uL 10/05/2024 4:09 PM [facility] ABS. EOSINOPHILS 0.10 0.04 - 0.36 x10'3/uL 10/05/2024 4:09 PM UNIT COORDINATOR [facility] ABS. BASOPHILS 0.01 0.01 - 0.08 x10'3/uL 10/05/2024 4:09 PM [facility] ABS. IMMATURE GRANULOCYTES 0.01 0.00 - 0.49 x10'3/uL 10/05/2024 4:09 PM [facility] RBC MORPHOLOGY RBC MORPHOLOGY APPEARS NORMAL. SLIDE REVIEWED. 10/05/2024 4:09 PM UNIT COORDINATOR [facility] PLT EST. ADEQUATE 10/05/2024 4:09 PM UNIT COORDINATOR [facility] 10/05/2024 3:20 PM UNIT COORDINATOR Tony NERI LABORATORY Final Resul t [facility] [address] [place] [address], * CT GENERIC (09/29/2024) Anatomical Region Laterality Modality Other 09/29/2024 [employer] [facility] Scanned SCANNING Final Resu lt * IMAGE GENERIC (09/29/2024) Only the most recent of2 resultswithin the time period is included. Anatomical Region Laterality Modality Other 09/29/2024 [employer] [facility] Scanned SCANNING Final Resu lt * ECG 12 lead (09/21/2024 4:33 PM UNIT COORDINATOR) 09/21/2024 4:33 PM UNIT COORDINATOR Narrative [facility] ([place] - 09/21/2024 9:50 PM UNIT COORDINATOR [address] Test Date: 2024-09-21 Pat Name: LEIA DILLON Department: 41 Room: Gender: Female Neonatal Intensive Care Nurse: : 1945 Requested By: BONNIE ROSE Order Number: [id number] Reading JONES Tanner Measurements Intervals Moro Rate: 80 P: 89 DE: 165 QRS: -11 QRSD: 134 T: -2 QT: 419 QTc: 486 Interpretive Statements SINUS RHYTHM RIGHT BUNDLE BRANCH BLOCK [120+ ms QRS DURATION, UPRIGHT V1, 40+ ms S IN I/aVL/V4/V5/V6] MINIMAL VOLTAGE CRITERIA FOR LVH, CONSIDER NORMAL VARIANT [MEETS CRITERIA IN ONE OF: R(aVL), S(V1), R(V5), R(V5/V6)+S(V1)] No previous ECG available for comparison Other ischemic changes, not STEMI COORDINATOR Procedure Note Tony Tanner MD - 09/21/[address] [place] Test Date: 2024-09-21 Pat Name: LEIA DILLON Department: 41 Room: Gender: Female Neonatal Intensive Care Nurse: : 1945 Requested By: BONNIE ROSE Order Number: [id number] Reading JONES Tanner Measurements Intervals Moro Rate: 80 P: 89 DE: 165 QRS: -11 QRSD: 134 T: -2 QT: 419 QTc: 486 Interpretive Statements SINUS RHYTHM RIGHT BUNDLE BRANCH BLOCK [120+ ms QRS DURATION, UPRIGHT V1, 40+ ms S IN I/aVL/V4/V5/V6] MINIMAL VOLTAGE CRITERIA FOR LVH, CONSIDER NORMAL VARIANT [MEETS CRITERIAIN ONE OF: R(aVL), S(V1), R(V5), R(V5/V6)+S(V1)] No previous ECG available for comparison Other ischemic changes, not STEMI COORDINATOR us Bonnie Rose COMPUTER SYSTEM VALIDATION SPECIALIST ECG ORDERABLES Final Result [facility] * IRON SAT PANEL (IRON,IBC,%SAT) (09/21/2024 4:15 PM UNIT COORDINATOR) IRON 144 50.0 - 170.0 MCG/DL 09/21/2024 4:54 PM UNIT COORDINATOR [facility] IRON BINDING CAPACITY 329 250 - 450 MCG/DL 09/21/2024 4:54 PM UNIT COORDINATOR [facility] IRON SATURATION 44 20 - 55 % 4:54 PM UNIT COORDINATOR [facility] 09/21/2024 4:15 PM UNIT COORDINATOR Bonnie Rose NP LABORATORY Final Result [facility] [address] [place] [address], * (ABNORMAL) COMPREHENSIVE METABOLIC PANEL (09/21/2024 4:15 PM UNIT COORDINATOR) GLUCOSE 101(H) 70 - 99 MG/DL 09/21/2024 4:54 PM UNIT COORDINATOR [facility] BUN 29(H) 7 - 18 MG/DL 09/21/2024 4:54 PM [facility] CREATININE S/P/B 0.91 0.55 - 1.02 MG/DL 09/21/2024 4:54 PM UNIT COORDINATOR [facility] SODIUM S/P/B 140 136 - 145 MMOL/L 09/21/2024 4:54 PM UNIT COORDINATOR [facility] POTASSIUM S/P/B 3.8 3.5 - 5.1 MMOL/L 09/21/2024 4:54 PM [facility] CHLORIDE S/P/B 104 97 - 115 MMOL/L 09/21/2024 4:54 PM UNIT COORDINATOR [facility] CO2 30.5 21 - 32 MMOL/L 09/21/2024 4:54 PM [facility] CALCIUM S/P/B 9.6 8.5 - 10.1 MG/DL 09/21/2024 4:54 PM [facility] BILIRUBIN TOTAL S/P/B 0.7 0.2 - 1.2 MG/DL 09/21/2024 4:54 PM [facility] Comment: THIS ASSAY IS NOT RECOMMENDED FOR PATIENTS UNDERGOING TREATMENT WITH ELTROMBOPAG DUE TO THE POTENTIAL FOR FALSELY ELEVATED RESULTS. TOTAL PROTEIN S/P/B 5.8(L) 6.4 - 8.2 G/DL 09/21/2024 4:54 PM [facility] ALBUMIN S/P/B 2.9(L) 3.4 - 5.0 G/DL 09/21/2024 4:54 PM [facility] AST 39(H) 15 - 37 U/L 09/21/2024 4:54 PM [facility] ALT 23 14 - 55 U/L 09/21/2024 4:54 PM [facility] ALKALINE PHOSPHATASE S/P/B 79 50 - 136 U/L 09/21/2024 4:54 PM [facility] ANION GAP 5.5 2 - 10 MMOL/L 09/21/2024 4:54 PM [facility] BUN CREATININE RATIO 31.9(H) 6 - 26 09/21/2024 4:54 PM [facility] A/G RATIO 1.0 1.0 - 2.0 RATIO 09/21/2024 4:54 PM [facility] GFR ESTIMATE 65(L) >90 ML/MIN/1.7 3 M2 09/21/2024 4:54 PM [facility] Comment: NOTE: eGFR is not calculated for patients <18 years of age or gender unknown. This is an estimated GFR calculation using the new CKD EPI creatinine equation without race and so does not require a correction factor for race. This estimated GFR should not be used for calculating drug doses. 09/21/2024 4:15 PM [facility] Bonnie Rose COMPUTER SYSTEM VALIDATION SPECIALIST LABORATORY Final Result Performing Organization Address [facility] [place] Co de Phone Number [facility] [address] [place] [address], [place] [phone] * TROPONIN, QUANT (09/21/2024 4:15 PM UNIT COORDINATOR) Pathologist [facility] TROPONIN I HIGH SENSITIVITY 8 <54 ng/L 09/21/2024 4:54 PM UNIT COORDINATOR [facility] Comment: HIGH DOSES OF BIOTIN, TROPONIN-SPECIFIC AUTOANTIBODIES, AND ANTIBODY THERAPY CONTAINING HAMA MAY INTERFERE WITH THIS TEST RESULT. CORRELATION TO CLINICAL HISTORY AND PRESENTATION RECOMMENDED. 09/21/2024 4:15 PM UNIT COORDINATOR Bonnie Rose COMPUTER SYSTEM VALIDATION SPECIALIST LABORATORY Final Result Performing Organization Address [facility] de Phone Number [facility] [address] [place] [address], [place] [phone] * XR CHEST PORTABLE (09/21/2024 4:12 PM UNIT COORDINATOR) Anatomical Region Laterality Modality Chest Radiographic Nae ging 09/21/2024 4:14 PM UNIT COORDINATOR Impressions 09/21/2024 4:15 PM UNIT COORDINATOR =====IMPRESSION:===== No radiographic evidence of active chest disease. Ordered By: BONINE ROSE Interpreted By: Benji Izquierdo MD, 09/21/2024 4:14 PM Narrative 09/21/2024 4:15 PM UNIT COORDINATOR [place] [id number] Examination: Chest x-ray 1 view Exam date/time: [...] Procedure Note Benji Izquierdo MD - 09/21/2024 [place] [id number] Examination: Chest x-ray 1 view Exam date/time: [...] MD, 09/21/2024 4:14 PM us Bonnie Rose COMPUTER SYSTEM VALIDATION SPECIALIST GENERAL IMAGING Final Result * COLONOSCOPY GENERIC (SCAN ORDER) (02/12/2024) 02/12/2024 [facility] Scanned SCANNING Final Resu lt * HEPATITIS PANEL,ACUTE (02/04/2024 11:05 AM CDT) HEPATITIS B SURFACE AG NON-REACT SANTIAGO NON-REACT SANTIAGO 02/04/2024 7:22 PM CDT [facility] Comment:HBsAg NOT DETECTED. HEP B CORE IGM NON-REACT SANTIAGO NON-REACT SANTIAGO 02/04/2024 7:22 PM CDT [facility] Comment: IgM ANTI HBc NOT DETECTED. DOES NOT EXCLUDE THE POSSIBILITY OF EXPOSURE TO OR INFECTION WITH HBV. NO RETEST REQUIRED. HIGH DOSES OF BIOTIN MAY INTERFERE WITH THIS TEST RESULT. CORRELATION TO CLINICAL HISTORY AND PRESENTATION RECOMMENDED. HAV IGM NON-REACT SANTIAGO NON-REACT SANTIAGO 02/04/2024 7:22 PM CDT [facility] Comment: IgM ANTI HAV NOT DETECTED. DOES NOT EXCLUDE THE POSSIBILITY OF EXPOSURE TO OR INFECTION WITH HAV. LEVELS OF IgM ANTI HAV MAY BE BELOW THE CUTOFF IN EARLY INFECTION. HEPATITIS C AB NON-REACT SANTIAGO NON-REACT SANTIAGO 02/04/2024 7:22 PM CDT [facility] Comment: ANTIBODIES TO HCV NOT DETECTED. DOES NOT EXCLUDE THE POSSIBILITY OF EXPOSURE TO HCV. 02/04/2024 11:0 5 AM CDT Shivam Lombardo DO LABORATORY Final Re sult Performing Organization Address [facility]/ZIP Co de Phone Number [facility] [address] [place] [address], [phone] * DIABETIC RETINOPATHY EXAM (NEGATIVE) (09/02/2023) [facility] Scanned SCANNING Final Resu lt Performing Organization Address City/[facility]/ZIP Co de Phone Number [facility] ONBASE * (ABNORMAL) LIPID PANEL (08/08/2023 11:25 AM UNIT COORDINATOR) CHOLESTEROL 123 100 - 199 mg/dL [facility] TRIGLYCERIDES 123 0 - 149 mg/dL [facility] HDL 32(L) >39 mg/dL [facility] VLDL CALCULATION 22 5 - 40 mg/dL [facility] LDL (CALCULATED) 69 0 - 99 mg/dL [facility] 1 08/08/2023 11:2 5 AM UNIT COORDINATOR 08/08/2023 Narrative [facility] - 08/09/2023 9:11 AM UNIT COORDINATOR Performed at: 01 - [facility] [address] [id number] Senior Quality Manager: Luciano Lawrence PhD, Phone: [phone] us Shivam Lombardo DO LABORATORY Final Re sult [facility] [address] [place] [address] [facility] * BONE DENSITY GENERIC (07/04/2022) Anatomical Region Laterality Modality Other 07/04/2022 [facility] Scanned SCANNING Final Resu lt from Last 3 Months or Most Recently Relevant to Health Maintenance Insurance MEDICARE AET Care Teams Controller Repairer And Tester Relationship Specialty Start Date End Date Shivam Lombardo DO [address] [place] [phone] PCP - General FAMILY PRACTICE 05/29/21 Kimberly Vieira, RN [address] [facility] [address] [place] [address] Registered Nurse CARE MANAGEMENT 03/23/24
--- OUTSIDE RECORDS SUMMARY | 2024-11-11 16:53 | XMS_ITS | CONTINUITY OF CARE DOCUMENT ---
Author Name sami gallardo Address Unknown Organization [facility] Address [address] [facility] [address] [place] [address] Phone [phone] Care Team Providers Care Title I Paraprofessional Name Role Phone Dawood PEREZ, Pee Unavailable DEON PEREZ, KODI Unavailable REESE NERI, SUDHA Bolden Unavailable INSURANCE PROVIDERS Payer name Policy type / Coverage type [employer] party ID [id number] PAY [id number]
--- OUTSIDE RECORDS SUMMARY | 2024-11-11 16:53 | XMS_ITS | Encounter Summary ---
Author Organization [facility] Address [address] [place] [address] Phone Care Team Providers Care Honey Extractor Name Role Phone Shivam Lombardo DO Primary Care Provider + Trini Lazaro MD Unavailable Jordi Olguin MD Unavailable [phone] Reason for Visit * Reason Onset Date Comments Canopy Call / questions 11/10/2024 Encounter Details Date Type Department Care Team (Late st Contact Info) Description 11/10/2024 Telephone [facility] [address] [phone] Jordi Olguin MD [address] [facility] [place] [address] [address] Canopy Call / questions Social History Tobacco Use Types Packs/Day Years [...] Telephone Encounter - Corrie Thornton RN - 11/10/2024 1:08 PM CDT Pt is calling to confirm that Dr Chanda really wants her to have a colonoscopy. She just had one done and was only expecting anEGD. NotesReturned call to patient, no report of colonoscopy in records. Unable to LVM. Please find out where patient has recent Colonoscopy. Referral does state EGD and colonoscopy documented in this encounter Plan of Treatment Upcoming Encounters Date Type Department Care Team (Late st Contact Info) Description 11/16/2024 1:30 PM CDT Office Visit [facility] [address] [phone] Jordi Olguin MD [address] [facility] [address] [phone] 11/16/2024 1:45 PM CDT Clinical Support [facility] [address] [phone] Nurse, Cc [facility] documented as of this encounter Visit Diagnoses Not on filedocumented in this encounter Care Teams Honey Extractor Relationship Specialty Start Date End Date Shivam Lombardo DO [address] [place] [phone] PCP - General Family Medicine 11/15/23 rTini Lazaro MD [address] [place] [phone] Consulting Physician Oncology 11/15/23 Jordi Olguin MD [address] [place] [phone] Consulting Physician Oncology 05/11/24 documented as of this encounter
--- OUTSIDE RECORDS SUMMARY | 2024-11-11 16:53 | XMS_ITS ---
Author Organization [facility] Address [address], [facility] [address] [place] [address] Phone Care Team Providers Care Welding Systems And Equipment Repairer Name Role Phone Shivam Lombardo DO Primary Care Provider + Trini Lazaro MD Unavailable Jordi Olguin MD Unavailable [phone] Active Problems Problem Noted Date Diagnosed Date [...] Plan Start Date:10/12/2024 Plan Provider:Renetta Urbina APRN, FINANCIAL SUPERVISOR Linked Problems Iron deficiency Treatment Medications No medications scheduled. Past Treatment and Therapy Plans No past plan information found.
--- OUTSIDE RECORDS SUMMARY | 2024-11-11 16:53 | XMS_ITS | Clinical Summary ---
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
== END 2024-11-11 15:20 | disposition home or self-care (01) ==
PROVIDERS: PCP Student in an Organized Health Care Education/Training Program; Visit Provider Student in an Organized Health Care Education/Training Program
DX: M79.89 Other specified soft tissue disorders (principal); I82.441 Acute embolism and thrombosis of right tibial vein
CPT/HCPCS: 93971

== ENCOUNTER 2024-11-20 01:48 | Inpatient (IN) | payer MEDICARE, SELFPAY ==
[2024-11-20] VITALS (32 sets, daily range): BP systolic 92–125; BP diastolic 40–63; PULSE 9–93; RESP 14–24; TEMP 36–37; O2SAT 95–100; BMI 31.5
--- NOTE | ~2024-11-20 | US_ITS ---
RIGHT LOWER EXTREMITY VENOUS ULTRASOUND Ordering provider: Deborah Dior APRN History: . DVT . Comparison: None. FINDINGS: --COMMON FEMORAL: Patent and free of thrombus. Normal compressibility, phasic flow and augmentation. --PROXIMAL SUPERFICIAL FEMORAL: Patent and free of thrombus. Normal compressibility, phasic flow and augmentation. --DISTAL SUPERFICIAL FEMORAL: Patent and free of thrombus. Normal compressibility, phasic flow and au gmentation. --POPLITEAL: Patent and free of thrombus. Normal compressibility, phasic flow and augmentation. --POSTERIOR TIBIAL: Noncompressible suggestive of thrombosis. IMPRESSION: Noncompressible posterior tibial vein suggestive of deep vein thrombosis. Reviewed, dictated and finalized at location A.
--- NOTE | ~2024-11-20 | US_ITS ---
EXAMINATION:US venous doppler LE RT INDICATION:Follow-up right posterior tibial artery DVT TECHNIQUE: Multiple grayscale, color flow and Doppler images of the right lower extremity deep venous systems were obtained and reviewed. COMPARISON:Ultrasound dated 11/20/2024 FINDINGS: The common femoral, superficial femoral and popliteal veins demonstrate normal respiratory variation, augmentation and compressibility. Color flow is also seen within the posterior tibial, pe roneal, greater saphenous and profunda veins. IMPRESSION: 1: No lower extremity deep venous thrombosis. Reviewed, dictated and finalized at location A.
--- NOTE | ~2024-11-20 | CT_ITS ---
EXAMINATION: CTA chest PE abdomen pel DATE: 11/20/2024 03:40 INDICATION: Dyspnea. TECHNIQUE: Computed tomography angiography (CTA) of the chest was performed with 100 mL Omnipaque-350 intravenous contrast timed to evaluate the pulmonary arteries. Coronal maximum intensity projection 3D-reconstructions were created by the technologist. Computed tomography (CT) of the abdomen and pelv is was performed with intravenous contrast. Automated exposure control and iterative reconstruction t echnique were employed. The dose-length product was 1151.06 mGy-cm. COMPARISON: CT 06/12/2024 FINDINGS: CTA chest: There is mild scarring at the lung apices. There is mild atelectasis bilaterally. There is a small right pleural effusion. The heart size is normal. There are coronary artery calcifications. No pericardial effusion. There is no pulmonary embolus. There are bridging endplate osteophytes at mu ltiple levels in the spine, consistent with diffuse idiopathic skeletal hyperostosis (DISH). CT abdomen and pelvis: The liver demonstrates surface nodularity, consistent with cirrhosis. There ar e changes of cholecystectomy. There is mild splenomegaly. There is a 9 mm cyst in the spleen. The frye creas and adrenal glands are normal. There is cortical thinning of the kidneys. There are cysts in ri ght kidney measuring up to 10 mm . There are no dilated loops of bowel. The appendix is normal. There is a portacaval shunt from the gastric veins to the left renal vein. There is a small volume of asci scottie. There is edema of the intra-abdominal fat and body wall. There are no pathologically enlarged ly mph nodes. There is mild lumbar spondylosis. IMPRESSION: 1. No pulmonary embolus. 2. Small right pleural effusion. 3. Cirrhosis of the liver portal venous hypertension. 4. Small volume of ascites. Reviewed, dictated and finalized at location A.
--- OUTSIDE RECORDS SUMMARY | 2024-11-20 01:51 | XMS_ITS | Encounter Summary ---
Author Organization [facility] Address [address] [place] [address] Care Team Providers Care Court Collections Officer Name Role Phone Shivam Lombardo DO Primary Care Provider + Kimberly Vieira RN Unavailable [phone] Reason for Visit * Reason Onset Date Comments Other 11/19/2024 Encounter Details Date Type Department Care Team (Late st Contact Info) Description 11/19/2024 Telephone [facility] Family & Internal Medicine [place] [phone] [place] [address] Shivam Lombardo DO [facility] [place] [address] Other Social History Tobacco Use Types Packs/Day Years [...] Sex Assigned at Female 07/29/2024 1:13 PM 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 She said she is going to call Dr. Olguin's office as well to see if he has any other recommendations. Will call this office back to let us know if she is going to go get her labs done today or tomorrow. Opportunity given for all questions to be answered, no further needs voiced at this time. LL-11/19/24 * Shivam Lombardo DO - 11/19/2024 12:56 PM CDT Hematology did not recommend transfusion on most recent set of labs. To avoid complications with her appointment for Saturday, we could order a repeat CBC for her to do today or tomorrow. Would need palmira at one of our hospitals since we do not have lab today. * Halie Rice MA - 11/19/2024 12:34 PM CDT Patient's hemoglobin was low on las check. Please advise on send into ED or defer to hematology. * Liyah Archuleta - 11/19/2024 12:16 PM CDT Pt called and said she thinks her hemoglobin is low, she is asking if she can get into the office [facility] and be seen. She says she can get a ride here now. documented in this encounter Plan of Treatment Upcoming Encounters Date Type Department Care Team (Late st Contact Info) Description 01/13/2025 1:40 PM CDT Office Visit [facility] Family & Internal Medicine - [place] [phone] [place] [address] Shivam Lombardo DO [address] [place] [address] Scheduled Orders Name Type Priority Associated Diagnoses Orde r Schedule CBC W/DIFF AUTOMATED Lab Routine Iron deficiency anemia due to chronic blood loss Expected: 11/19/2024, Expires: 11/19/2025 documented as of this encounter Goals Goal Patient Goal Type Associated Problems Recent Progress Patient-Stated? Author Establish Plan for Symptom Monitoring for anemia aeb the below: Lifestyle On track(2024 3:55 PM CDT) Kimberly Dupree RN Note: .1) Patient will [...] cirrhosis aeb the below: Lifestyle On track(2024 3:55 PM CDT) Kimberly Dupree RN Note: 1) Patient will [...] MDS aeb the below: Lifestyle On track(2024 3:55 PM CDT) No Kimberly Vieira, RN Note: .1) patient will follow up [...] as of this encounter Visit Diagnoses Diagnosis Iron deficiency anemia due to chronic blood loss- Primary Iron deficiency anemia secondary to blood loss (chronic) documented in this encounter Care Teams Court Collections Officer Relationship Specialty Start Date End Date Shivam Lombardo DO [address] [place] [phone] PCP - General FAMILY PRACTICE 05/29/21 Kimberly Vieira, RN [address] [address] Registered Nurse CARE MANAGEMENT 03/23/24 documented as of this encounter
--- OUTSIDE RECORDS SUMMARY | 2024-11-20 01:51 | XMS_ITS | Clinical Summary ---
Author Organization [facility] Address [address] [place] [address] Care Team Providers Care Cartography Technician Name Role Phone Shivam Lombardo Lulu DO Primary Care Provider + Kimberly Vieira RN Unavailable [phone] Allergies No known active allergies Medications Glucose Blood test stripIndication s:Type 2 diabetes mellitus without complication, without long-term current use of insulin ([facility] HHS/[facility]) Check blood sugar once daily in AM when fasting 100 strip 11 05/30/20 22 Active Blood Glucose Monitoring Suppl (ONE TOUCH ULTRA 2) w/Device KitIndications: Type 2 diabetes mellitus without complication, without long-term current use of insulin ([facility] HHS/[facility]) Check blood sugar once daily in AM when fasting 1 kit 05/30/20 22 Active Lancets (ONETOUCH ULTRASOFT) lancetsIndicati ons:Type 2 diabetes mellitus without complication, without long-term current use of insulin ([facility] HHS/[facility]) Check blood sugar once daily [...] mouth 2 (two) times daily. 74 tablet 11/13/19 25 Active furosemide (LASIX) 20 MG tabletIndicatio [...] 54 g 1 01/17/20 24 025 Discontinued apixaban (ELIQUIS DVT/PE STARTER PACK) 5 MG tablet starter packIndications :Acute deep vein thrombosis (DVT) of proximal vein of right lower extremity ([facility] HHS/[facility]) Take 2 tablets (10 mg total) by mouth 2 (two) times daily for 7 days, then take 1 tablet (5 mg total) by mouth 2 (two) times daily. 74 tablet 11/12/19 25 025 Discontinued(Re order) Active Problems Problem Noted Date Diagnosed Date MDS (myelodysplastic syndrome), low grade ([facility]/ [facility] HHS/[facility]) 07/29/2024 Gastroesophageal reflux disease 05/18/2024 Cirrhosis of liver ([facility]) 05/18/2024 Care Management 03/31/2024 Iron deficiency anemia 03/27/2024 Overweight with body mass in dex (BMI) of 29 to 29.9 in adult 03/27/2024 Pancytopenia 01/06/2024 SYEDA (generalized anxiety disorder) 05/29/2021 Hypertension associated with type 2 diabetes mellitus ([facility]) 05/29/2021 Mixed hyperlipidemia 05/29/2021 Type 2 diabetes mellitus wit h microalbuminuria, without long-term current use of insulin ([facility]) 05/29/2021 S/P total knee replacement, left 05/29/2021 Mild intermittent asthma without complication (H HS/HCC) 05/29/2021 Psoriasis 05/29/2021 Resolved Problems Problem Noted Date Diagnosed Date Resolved Date DEJA (obstructive sleep apnea) 11/06/2024 11/06/2024 Overview (11/06/2024): No longer on CPAP after 100 lb weight loss SDH (subdural hematoma) 01/25/2024 06/0 02/2024 Encounters Date Type Department Care Team Description 11/19/2024 2:54 PM CDT - 11/19/2024 10:32 PM CDT Hospital Encounter [facility] [place] [address] Jordi Olguin MD Discharge Disposition: Home or Self Care (Routine Discharge) 11/19/2024 Travel 11/19/2024 Telephone [facility] [address] [phone] Shivam Lombardo, DO Other 11/17/2024 Patient Outreach [facility] [address] [phone] Kimberly Vieira, JON Care Management (CCM) 11/11/2024 Scan [employer] INFO SRVCS Scanned, [facility] Ultrasound (SCAN) 11/11/2024 Telephone [facility] [address] [phone] Shivam Lombardo, DO Results 11/10/[address] [phone] Shivam Lombardo, DO Information 11/06/2024 1:00 PM CDT Office Visit [address] [phone] Shivam Lombardo, DO Swelling (Bilateral LE. Swelling has improved since increasing lasix. ) 11/06/2024 Travel 11/05/2024 Scan [employer] INFO SRVCS Scanned, [facility] Lab (SCAN) 11/04/[address] [phone] Shivam Lombardo, DO Swelling 10/30/2024 Telephone [facility] [address] [phone] Shivam Lombardo, DO Advice 10/26/2024 3:09 PM COMMUNICATIONS PROGRAM MANAGER - 10/26/2024 11:59 PM COMMUNICATIONS PROGRAM MANAGER Hospital Encounter [facility] [place] [address] Jordi Olguin MD Discharge Disposition: Home or Self Care (Routine Discharge) 10/26/2024 3:09 PM COMMUNICATIONS PROGRAM MANAGER - 10/26/2024 8:50 PM COMMUNICATIONS PROGRAM MANAGER Hospital Encounter [facility] [place] [address] Jordi Olguin MD Discharge Disposition: Home or Self Care (Routine Discharge) 10/26/2024 Scan [facility] SRVCS Scanned, [facility] 10/26/2024 Travel 10/26/2024 Orders Only [facility] [place] [address] Jordi Olguin MD 10/26/2024 Patient Outreach [facility] [address] [phone] Elin Ni, TOOL AND FIXTURE REPAIRER 10/22/2024 Scan [facility] SRVCS Scanned, [facility] Ultrasound (SCAN) 10/22/2024 Patient Outreach [address] [phone] Kimberly Vieira, RN Care Management (CCM) 10/12/2024 Scan [facility] SRVCS Scanned, [facility] Lab (SCAN) 10/12/[address] [phone] Shivam Lombardo, Information 10/05/2024 3:11 PM COMMUNICATIONS PROGRAM MANAGER - 10/06/2024 1:01 AM [facility] Emergency [facility] [place] [address] Khang Cohn, Abnormal Lab Results Discharge Disposition: Home or Self Care (Routine Discharge) 10/05/2024 Scan [facility] SRVCS Scanned, [facility] 10/05/2024 Travel 09/29/2024 Scan [facility] SRVCS Scanned, [facility] Image (SCAN); CT (SCAN); Ultrasound (SCAN) 09/28/2024 12:50 PM COMMUNICATIONS PROGRAM MANAGER - 09/28/2024 5:05 PM [facility] Hospital Encounter [facility] [place] [address] Jordi Olguin MD Discharge Disposition: Home or Self Care (Routine Discharge) 09/28/2024 Travel 09/25/2024 Patient Outreach [facility] [address] [phone] Kimberly Vieira RN Care Management (CCM) 09/24/2024 Scan [facility] SRVCS Scanned, [facility] 09/22/2024 Scan [facility]VCS Scanned, [facility] 09/22/2024 Telephone [facility] Internal [place] [address] [place] [address] Shivam Lombardo, DO Information 09/21/2024 4:05 PM COMMUNICATIONS PROGRAM MANAGER - 09/21/2024 10:39 PM [facility] Emergency [facility] [place] [address] Rosalina Mcbride MD Jerome, Jason P, MD,PHD Abnormal Lab Results Discharge Disposition: Home or Self Care (Routine Discharge) 09/21/2024 Scan [facility] SRVCS Scanned, [facility] 09/21/2024 Travel 09/16/2024 Patient Outreach [facility] [place] [address] [place] [phone] Kimberly Vieira RN Care Management (CCM/) 09/10/2024 Telephone [facility] [address] [phone] Shivam Lombardo, Information 09/02/2024 Telephone [facility] Family & Internal Medicine [address] [phone] Shivam Lombardo DO Medication Request 08/24/2024 Scan [facility] [...] Assigned at Female 07/29/2024 1:13 PM COMMUNICATIONS PROGRAM MANAGER Legal Sex Female 8:19 PM CDT Gender Identity Female 09/04/2021 4:46 PM COMMUNICATIONS PROGRAM MANAGER Sexual Orientation Not on file Occupation Industry Job Start Date Job End Date Not on file Not on file Not on file Not on file Last Filed Vital Signs Vital Sign Reading Time Taken Comments Blood Pressure 95/47 11/19/2024 9:30 PM CDT Pulse 73 11/19/2024 9:30 PM CDT Temperature 36.8 C (98.2 F) 11/19/2024 9:30 PM CDT Respiratory Rate 16 11/19/2024 9:30 PM CDT Oxygen Saturation 99% 11/19/2024 9:30 PM CDT Inhaled Oxygen Concentration - - Weight 75 kg (165 lb 6.4 oz) 11/06/2024 1:09 PM CDT Height 152.4 cm (5') 11/06/2024 1:09 PM CDT Body Mass Index 32.3 11/06/2024 1:09 PM CDT Plan of Treatment Upcoming Encounters Date Type Department Care Team (Late st Contact Info) Description 01/13/2025 1:40 PM CDT Office Visit [facility] Family & Internal Medicine [facility] [address] [place] [phone] Shivam Lombardo, [address] [place], [place] [phone] Health Maintenance Due Date Last Done Comments Kidney Health Evaluation 1945 DTaP, Tdap and Td Vaccines (1 - Tdap) 1965 Zoster Vaccines (1 of 2) 01/22/1996 Annual Medicare Wellness Visit 2011 Lipid Panel 08/08/2024 08/08/2023, 04/28, 06/08/2021 Diabetes: Retinopathy Eye Exam 09/02/2024 09/02/2023, 08/28/2022 COVID-19 Vaccine (7 - Pfizer risk season) 2025 06/23/2024, 07/01/2023, 06/13/2022, Additional history exists Postponed from 12/22/2024 (Future Appointment) Hemoglobin A1C 05/09/2025 11/06/2024, 1211/2023, 03/20/2024, Additional history exists Dexa Scan (General) 07/29/2025 07/04/2022 Postpone d from 07/04/2024 (Patient Refused) Pneumococcal Vaccine: 65+ Years Completed 02/18/2018, 02/08/2017 Hepatitis C Completed 02/04/2024, 02/01/2023 Colorectal Cancer Screening Colonoscopy (10 Years) Discontinued 02/12/2024, 10/29/2016 Influenza Adult Completed 06/23/2024, 01/2023, 06/13/2022, Additional history exists RSV Immunization or 60+ Years Completed 06/23/2024 PHQ-2 (Physician [place]) Completed 11/06/2024 Meningococcal B Vaccine Aged Out [...] Lifestyle On track(2024 3:55 PM CDT) Kimberly Dupree, RN Note: .1) Patient will [...] PM CDT) Kimberly Dupree RN Note: .1) patient will [...] Procedure Name Priority Date/Time Associated Diagnosis Comments TYPE & SCREEN Routine 11/19/2024 5:50 PM CDT Iron deficiency anemia Pancytopenia ([facility]/HCC) ULTRASOUND GENERIC (SCAN ORDER) 11/11/2024 COLLECT.CAPILLARY (FNGR,HEEL,EAR) Routine 11/06/2024 1:20 PM CDT Type 2 diabetes mellitus with other circulatory complication, without long-term current use of insulin ([facility]/HCC HHS/HCC) HEMOGLOBIN, GLYCOSYLATED Routine 11/06/2024 Type 2 diabetes mellitus with other circulatory complication, without long-term current use of insulin ([facility]/HCC HHS/HCC) OUTSIDE PT/INR (SCAN ORDER) 11/05/2024 OUTSIDE LAB (SCAN ORDER) 11/05/2024 TRANSFUSE RED BLOOD CELLS Routine 10/26/2024 5:09 PM COMMUNICATIONS PROGRAM MANAGER TYPE & SCREEN Routine 10/26/2024 3:18 PM COMMUNICATIONS PROGRAM MANAGER MDS (myelodysplastic syndrome), low grade (CMS/HCC HHS/HCC) ULTRASOUND GENERIC (SCAN ORDER) 10/22/2024 OUTSIDE LAB (SCAN ORDER) 10/12/2024 OUTSIDE LAB (SCAN ORDER) 10/12/2024 OUTSIDE LAB (SCAN ORDER) 10/12/2024 TRANSFUSE RED BLOOD CELLS STAT 10/05/2024 10:48 PM COMMUNICATIONS PROGRAM MANAGER TRANSFUSE RED BLOOD CELLS STAT 10/05/2024 7:11 PM COMMUNICATIONS PROGRAM MANAGER TYPE & SCREEN STAT 10/05/2024 3:20 PM COMMUNICATIONS PROGRAM MANAGER PROTHROMBIN TIME, VENOUS STAT 10/05/2024 3:20 PM COMMUNICATIONS PROGRAM MANAGER PARTIAL THROMBOPLASTIN TIME,PTT STAT 10/05/2024 3:20 PM COMMUNICATIONS PROGRAM MANAGER CBC W/DIFF AUTOMATED STAT 10/05/2024 3:20 PM COMMUNICATIONS PROGRAM MANAGER CT GENERIC 09/29/2024 IMAGE GENERIC 09/29/2024 ULTRASOUND GENERIC (SCAN ORDER) 09/29/2024 IMAGE GENERIC 09/29/2024 TRANSFUSE RED BLOOD CELLS Routine 09/28/2024 2:45 PM COMMUNICATIONS PROGRAM MANAGER TYPE & SCREEN Routine 09/28/2024 1:15 PM COMMUNICATIONS PROGRAM MANAGER MDS (myelodysplastic syndrome), low grade (CMS/HCC HHS/HCC) TRANSFUSE RED BLOOD CELLS STAT 09/21/2024 8:12 PM COMMUNICATIONS PROGRAM MANAGER TRANSFUSE RED BLOOD CELLS STAT 09/21/2024 5:51 PM COMMUNICATIONS PROGRAM MANAGER ECG 12-LEAD Routine 09/21/2024 4:33 PM COMMUNICATIONS PROGRAM MANAGER IRON SAT PANEL (IRON,IBC,%SAT) STAT 09/21/2024 4:15 PM COMMUNICATIONS PROGRAM MANAGER TROPONIN, QUANT STAT 09/21/2024 4:15 PM COMMUNICATIONS PROGRAM MANAGER COMPREHENSIVE METABOLIC PANEL STAT 09/21/2024 4:15 PM COMMUNICATIONS PROGRAM MANAGER PROTHROMBIN TIME, VENOUS STAT 09/21/2024 4:15 PM COMMUNICATIONS PROGRAM MANAGER CBC W/DIFF AUTOMATED STAT 09/21/2024 4:15 PM COMMUNICATIONS PROGRAM MANAGER TYPE & SCREEN STAT 09/21/2024 4:14 PM COMMUNICATIONS PROGRAM MANAGER XR CHEST PORTABLE STAT 09/21/2024 4:1 2 PM COMMUNICATIONS PROGRAM MANAGER COLONOSCOPY GENERIC (SCAN ORDER) 02/12/2024 HEPATITIS PANEL,ACUTE Routine 02/04/2024 11:05 AM CDT Pancytopenia, acquired Elevated liver enzymes Other cirrhosis of liver DIABETIC RETINOPATHY EXAM (NEGATIVE)(SCAN ORDER) Routine 09/02/2023 LIPID PANEL Routine 08/08/2023 11:25 AM COMMUNICATIONS PROGRAM MANAGER Type 2 diabetes mellitus with microalbuminuria, without long-term current use of insulin Mixed hyperlipidemia Primary hypertension BONE DENSITY GENERIC (SCAN ORDER) 07/04/2022 from Last 3 Months or Most Recently Relevant to Health Maintenance Results * TRANSFUSE RED BLOOD CELLS (11/19/2024 9:34 PM CDT) Only the most recent of7 resultswithin the time period is included. us Jordi Olguin MD NURSING TREATMENT ORDERABLES - BLOOD ADMIN Final Result * ULTRASOUND GENERIC (SCAN ORDER) (11/11/2024) Only the most recent of3 resultswithin the time period is included. Anatomical Region Laterality Modality Other 11/11/2024 us [facility] Scanned SCANNING Final Resu lt * A1C (BACK OFFICE) (11/06/2024) HGB A1C 4.8 % [facility] 11/06/2024 us Shivam Lombardo DO LABORATORY Final Re sult [facility] [address] [place] [address], [place] * OUTSIDE PT/INR (SCAN ORDER) (11/05/2024) 11/05/2024 us [facility] Scanned SCANNING Final Resu lt * OUTSIDE LAB (SCAN ORDER) (11/05/2024) Only the most recent of4 resultswithin the time period is included. 11/05/2024 us [facility] Scanned SCANNING Final Resu lt * TYPE & SCREEN (10/26/2024 3:18 PM COMMUNICATIONS PROGRAM MANAGER) Only the most recent of4 resultswithin the time period is included. UNITS ORDERED 1 10/27/2024 6:31 AM COMMUNICATIONS PROGRAM MANAGER [facility] ABO/RH A POSITIVE 10/26/2024 4:47 PM COMMUNICATIONS PROGRAM MANAGER [facility] ANTIBODY SCREEN NEGATIVE 4:47 PM COMMUNICATIONS PROGRAM MANAGER [facility] SAMPLE EXPIRATION 10/29/2024,2359 10/26/2024 4:47 PM COMMUNICATIONS PROGRAM MANAGER [facility] BLOOD UNIT NUMBER [id number] 10/26/2024 4:47 PM COMMUNICATIONS PROGRAM MANAGER [facility] PRODUCT: PC LEUKOPOOR 10/26/2024 4:47 PM COMMUNICATIONS PROGRAM MANAGER [facility] UNIT DIVISION 00 10/26/2024 4:47 PM COMMUNICATIONS PROGRAM MANAGER [facility] BLOOD UNIT STATUS TRANSFUSED,FINAL 10/27/2024 6:36 AM COMMUNICATIONS PROGRAM MANAGER [facility] ISSUE DATE/TIME [id number] 025 6:36 AM COMMUNICATIONS PROGRAM MANAGER [facility] PRODUCT CODE [id number] 10/27/2024 6:36 AM COMMUNICATIONS PROGRAM MANAGER [facility] ABO/RH Unit A POS 10/27/2024 6:36 AM COMMUNICATIONS PROGRAM MANAGER [facility] ABO/RH UNIT ISBT CODE 6200 10/27/2024 6:36 AM COMMUNICATIONS PROGRAM MANAGER [facility] BLOOD UNIT EXPIRATION DATE [id number] 10/27/2024 6:36 AM COMMUNICATIONS PROGRAM MANAGER [facility] TRANSFUSION STATUS OK TO TRANSFUSE 10/26/2024 4:47 PM COMMUNICATIONS PROGRAM MANAGER [facility] CROSSMATCH COMPATIBLE-EXM 10/26/2024 4:47 PM COMMUNICATIONS PROGRAM MANAGER [facility] 10/26/2024 3:18 PM COMMUNICATIONS PROGRAM MANAGER Jordi Olguin MD BLOOD BANK TEST ORDERABLES F inal Result Performing Organization Address [facility]/ZIP Co de Phone Number [facility] [address] [place] [address], [place] [phone] * PARTIAL THROMBOPLASTIN TIME,PTT (10/05/2024 3:20 PM COMMUNICATIONS PROGRAM MANAGER) PTT 36.5 25.1 - 36.5 SEC 10/05/2024 3:53 PM COMMUNICATIONS PROGRAM MANAGER [facility] 10/05/2024 3:20 PM COMMUNICATIONS PROGRAM MANAGER Tony NERI LABORATORY Final Resul t Performing Organization Address City/[facility]/ZIP Co de Phone Number [facility] [address] [place] [address], [place] [phone] * PROTIME/INR, VENOUS (10/05/2024 3:20 PM COMMUNICATIONS PROGRAM MANAGER) Only the most recent of2 resultswithin the time period is included. PROTIME 12.9 10.2 - 12.9 SEC 10/05/2024 3:53 PM COMMUNICATIONS PROGRAM MANAGER [facility] INR 1.1 10/05/2024 3:53 PM COMMUNICATIONS PROGRAM MANAGER [facility] Comment: Recommended INR Therapeutic Goals: 2.0-3.0 Routine Therapy 2.5-3.5 Mechanical Prosthetic Valves (High Risk) 10/05/2024 3:20 PM COMMUNICATIONS PROGRAM MANAGER Tony NERI LABORATORY Final Resul t [facility] [address] [place] [address], [place] [phone] * (ABNORMAL) CBC W/DIFF AUTOMATED (10/05/2024 3:20 PM COMMUNICATIONS PROGRAM MANAGER) Only the most recent of2 resultswithin the time period is included. WBC 3.08(L) 4.5 - 11.0 x10'3/uL 10/05/2024 3:35 PM COMMUNICATIONS PROGRAM MANAGER [facility] RBC 2.25(L) 4.20 - 5.40 x10'6/uL 10/05/2024 3:35 PM COMMUNICATIONS PROGRAM MANAGER [facility] HGB 6.3(LL) 12.0 - 16.0 G/DL 10/05/2024 3:35 PM [facility] Comment: This result has been called to JOHN JUAN by [id number] on 10/05/2024 15:35:38, and has been read back. HCT 21.9(L) 38.0 - 48.0 % 10/05/2024 3:35 PM COMMUNICATIONS PROGRAM MANAGER [facility] MCV 97.3 81.0 - 99.0 FL 10/05/2024 3:35 PM COMMUNICATIONS PROGRAM MANAGER [facility] MCH 28.0 27.0 - 31.0 PG 10/05/2024 3:35 PM COMMUNICATIONS PROGRAM MANAGER [facility] MCHC 28.8(L) 32.0 - 36.0 G/DL 10/05/2024 3:35 PM [facility] RDW 14.3 11.5 - 14.5 % 10/05/2024 3:35 PM [facility] PLT 105(L) 130 - 400 x10'3/uL 10/05/2024 3:35 PM [facility] MPV 11.9 9.3 - 12.2 FL 10/05/2024 3:35 PM [facility] DIFFERENTIAL TYPE AUTOMATED DIFFERENTIAL 10/05/2024 4:09 PM [facility] NEUTROPHILS % 63.1 % 10/05/2024 4:09 PM [facility] LYMPHOCYTES % 22.4 % 10/05/2024 4:09 PM [facility] MONOCYTES % 10.7 % 10/05/2024 4:09 PM [facility] EOSINOPHILS 3.2 % 10/05/2024 4:09 PM [facility] BASOPHILS 0.3 % 10/05/2024 4:09 PM [facility] IMMATURE GRANS % 0.3 % 10/05/19 25 4:09 PM [facility] ABS. NEUTROPHILS 1.94 1.80 - 7.70 x10'3/uL 10/05/2024 4:09 PM [facility] ABS. LYMPHOCYTES 0.69(L) 1.00 - 4.80 x10'3/uL 10/05/2024 4:09 PM [facility] ABS. MONOCYTES 0.33 0.24 - 0.86 x10'3/uL 10/05/2024 4:09 PM [facility] ABS. EOSINOPHILS 0.10 0.04 - 0.36 x10'3/uL 10/05/2024 4:09 PM [facility] ABS. BASOPHILS 0.01 0.01 - 0.08 x10'3/uL 10/05/2024 4:09 PM COMMUNICATIONS PROGRAM MANAGER [facility] ABS. IMMATURE GRANULOCYTES 0.01 0.00 - 0.49 x10'3/uL 10/05/2024 4:09 PM [facility] RBC MORPHOLOGY RBC MORPHOLOGY APPEARS NORMAL. SLIDE REVIEWED. 10/05/2024 4:09 PM COMMUNICATIONS PROGRAM MANAGER [facility] PLT EST. ADEQUATE 10/05/2024 4:09 PM COMMUNICATIONS PROGRAM MANAGER [facility] 10/05/2024 3:20 PM COMMUNICATIONS PROGRAM MANAGER Tony NERI LABORATORY Final Resul t [facility] [address] [place] [address], * CT GENERIC (09/29/2024) Anatomical Region Laterality Modality Other 09/29/2024 [employer] [facility] Scanned SCANNING Final Resu lt * IMAGE GENERIC (09/29/2024) Only the most recent of2 resultswithin the time period is included. Anatomical Region Laterality Modality Other 09/29/2024 [employer] [facility] Scanned SCANNING Final Resu lt * ECG 12 lead (09/21/2024 4:33 PM COMMUNICATIONS PROGRAM MANAGER) 09/21/2024 4:33 PM COMMUNICATIONS PROGRAM MANAGER Narrative [facility] ([place] RAD - 09/21/2024 9:50 PM COMMUNICATIONS PROGRAM MANAGER [address] Test Date: 2024-09-21 Pat Name: LEIA DILLON Department: 41 Room: Gender: Female Certified Nursing Assistant: : 1945 Requested By: BONNIE ROSE Order Number: [id number] Reading JONES Tanner Measurements Intervals [place] Rate: 80 P: 89 [place]: 165 QRS: -11 QRSD: 134 T: -2 QT: 419 QTc: 486 Interpretive Statements SINUS RHYTHM RIGHT BUNDLE BRANCH BLOCK [120+ ms QRS DURATION, UPRIGHT V1, 40+ ms S IN I/aVL/V4/V5/V6] MINIMAL VOLTAGE CRITERIA FOR LVH, CONSIDER NORMAL VARIANT [MEETS CRITERIA IN ONE OF: R(aVL), S(V1), R(V5), R(V5/V6)+S(V1)] No previous ECG available for comparison Other ischemic changes, not STEMI UNICATIONS PROGRAM MANAGER Procedure Note Tony Tanner MD - 09/21/[address] [place] Test Date: 2024-09-21 Pat Name: LEIA DILLON Department: 41 Room: Gender: Female Certified Nursing Assistant: : [id number] Requested By: BONNIE ROSE Order Number: [id number] Reading : Tony Tanner Measurements Intervals [place] Rate: 80 P: 89 [place]: 165 QRS: -11 QRSD: 134 T: -2 QT: 419 QTc: 486 Interpretive Statements SINUS RHYTHM RIGHT BUNDLE BRANCH BLOCK [120+ ms QRS DURATION, UPRIGHT V1, 40+ ms S IN I/aVL/V4/V5/V6] MINIMAL VOLTAGE CRITERIA FOR LVH, CONSIDER NORMAL VARIANT [MEETS CRITERIAIN ONE OF: R(aVL), S(V1), R(V5), R(V5/V6)+S(V1)] No previous ECG available for comparison Other ischemic changes, not STEMI UNICATIONS PROGRAM MANAGER us Bonnie Rose GRAPHIC DESIGN PROFESSOR ECG ORDERABLES Final Result [facility] RAD * IRON SAT PANEL (IRON,IBC,%SAT) (09/21/2024 4:15 PM COMMUNICATIONS PROGRAM MANAGER) IRON 144 50.0 - 170.0 MCG/DL 09/21/2024 4:54 PM COMMUNICATIONS PROGRAM MANAGER [facility] IRON BINDING CAPACITY 329 250 - 450 MCG/DL 09/21/2024 4:54 PM COMMUNICATIONS PROGRAM MANAGER [facility] IRON SATURATION 44 20 - 55 % 4:54 PM [facility] 09/21/2024 4:15 PM COMMUNICATIONS PROGRAM MANAGER Bonnie Rose NP LABORATORY Final Result [facility] [address] [place] [address], [place] [phone] * (ABNORMAL) COMPREHENSIVE METABOLIC PANEL (09/21/2024 4:15 PM COMMUNICATIONS PROGRAM MANAGER) GLUCOSE 101(H) 70 - 99 MG/DL 09/21/2024 4:54 PM COMMUNICATIONS PROGRAM MANAGER [facility] BUN 29(H) 7 - 18 MG/DL 09/21/2024 4:54 PM [facility] CREATININE S/P/B 0.91 0.55 - 1.02 MG/DL 09/21/2024 4:54 PM COMMUNICATIONS PROGRAM MANAGER [facility] SODIUM S/P/B 140 136 - 145 MMOL/L 09/21/2024 4:54 PM [facility] POTASSIUM S/P/B 3.8 3.5 - 5.1 MMOL/L 09/21/2024 4:54 PM [facility] CHLORIDE S/P/B 104 97 - 115 MMOL/L 09/21/2024 4:54 PM [facility] CO2 30.5 21 - 32 MMOL/L 09/21/2024 4:54 PM [facility] CALCIUM S/P/B 9.6 8.5 - 10.1 MG/DL 09/21/2024 4:54 PM [facility] BILIRUBIN TOTAL S/P/B 0.7 0.2 - 1.2 MG/DL 09/21/2024 4:54 PM [facility] Comment: THIS ASSAY IS NOT RECOMMENDED FOR PATIENTS UNDERGOING TREATMENT WITH ELTROMBOPAG DUE TO THE POTENTIAL FOR FALSELY ELEVATED RESULTS. TOTAL PROTEIN S/P/B 5.8(L) 6.4 - 8.2 G/DL 09/21/2024 4:54 PM [facility] ALBUMIN S/P/B 2.9(L) 3.4 - 5.0 G/DL 09/21/2024 4:54 PM [facility] AST 39(H) 15 - 37 U/L 09/21/2024 4:54 PM [facility] [facility] ALT 23 14 - 55 U/L 09/21/2024 4:54 PM [facility] ALKALINE PHOSPHATASE S/P/B 79 50 - 136 U/L 09/21/2024 4:54 PM [facility] ANION GAP 5.5 2 - 10 MMOL/L 09/21/2024 4:54 PM [facility] BUN CREATININE RATIO 31.9(H) 6 - 26 09/21/2024 4:54 PM [facility] A/G RATIO 1.0 1.0 - 2.0 RATIO 09/21/2024 4:54 PM [facility] GFR ESTIMATE 65(L) >90 ML/MIN/1.7 3 M2 09/21/2024 4:54 PM [facility] Comment: NOTE: eGFR is not calculated for patients <18 years of age or gender unknown. This is an estimated GFR calculation using the new CKD EPI creatinine equation without race and so does not require a correction factor for race. This estimated GFR should not be used for calculating drug doses. 09/21/2024 4:15 PM COMMUNICATIONS PROGRAM MANAGER Bonnie Rose GRAPHIC DESIGN PROFESSOR LABORATORY Final Result Performing Organization Address [facility] Co de Phone Number [facility] [address] [place] [address], [place] [phone] * TROPONIN, QUANT (09/21/2024 4:15 PM COMMUNICATIONS PROGRAM MANAGER) TROPONIN I HIGH SENSITIVITY 8 <54 ng/L 09/21/2024 4:54 PM COMMUNICATIONS PROGRAM MANAGER [facility] Comment: HIGH DOSES OF BIOTIN, TROPONIN-SPECIFIC AUTOANTIBODIES, AND ANTIBODY THERAPY CONTAINING HAMA MAY INTERFERE WITH THIS TEST RESULT. CORRELATION TO CLINICAL HISTORY AND PRESENTATION RECOMMENDED. 09/21/2024 4:15 PM COMMUNICATIONS PROGRAM MANAGER Bonnie Rose GRAPHIC DESIGN PROFESSOR LABORATORY Final Result Performing Organization Address [facility] de Phone Number [facility] [address] [place] [address], [place] [phone] * XR CHEST PORTABLE (09/21/2024 4:12 PM COMMUNICATIONS PROGRAM MANAGER) Anatomical Region Laterality Modality Chest Radiographic Nae ging 09/21/2024 4:14 PM COMMUNICATIONS PROGRAM MANAGER Impressions 09/21/2024 4:15 PM COMMUNICATIONS PROGRAM MANAGER =====IMPRESSION:===== No radiographic evidence of active chest disease. Ordered By: BONNIE ROSE Interpreted By: Benji Izquierdo MD, 09/21/2024 4:14 PM Narrative 09/21/2024 4:15 PM COMMUNICATIONS PROGRAM MANAGER [facility] [address] [place], [place] [address] Examination: Chest x-ray 1 view Exam date/time: [...] Procedure Note Benji Izquierdo MD - 09/21/[address] [address] Examination: Chest x-ray 1 view Exam date/time: [...] MD, 09/21/2024 4:14 PM us Bonnie Rose GRAPHIC DESIGN PROFESSOR GENERAL IMAGING Final Result * COLONOSCOPY GENERIC (SCAN ORDER) (02/12/2024) 02/12/2024 [facility] Scanned SCANNING Final Resu lt * HEPATITIS PANEL,ACUTE (02/04/2024 11:05 AM CDT) Pathologist [facility] HEPATITIS B SURFACE AG NON-REACT SANTIAGO NON-REACT SANTIAGO 02/04/2024 7:22 PM CDT [facility] Comment:HBsAg NOT DETECTED. HEP B CORE IGM NON-REACT SANTIAGO NON-REACT SANTIAGO 02/04/2024 7:22 PM CDT [facility] Comment: IgM ANTI HBc NOT DETECTED. DOES NOT EXCLUDE THE POSSIBILITY OF EXPOSURE TO OR INFECTION WITH HBV. NO RETEST REQUIRED. HIGH DOSES OF BIOTIN MAY INTERFERE WITH THIS TEST RESULT. CORRELATION TO CLINICAL HISTORY AND PRESENTATION RECOMMENDED. HAV IGM NON-REACT SANTIAGO NON-REACT SANTIAGO 02/04/2024 7:22 PM CDT [facility] Comment: IgM ANTI HAV NOT DETECTED. DOES NOT EXCLUDE THE POSSIBILITY OF EXPOSURE TO OR INFECTION WITH HAV. LEVELS OF IgM ANTI HAV MAY BE BELOW THE CUTOFF IN EARLY INFECTION. HEPATITIS C AB NON-REACT SANTIAGO NON-REACT SANTIAGO 02/04/2024 7:22 PM CDT [facility] Comment: ANTIBODIES TO HCV NOT DETECTED. DOES NOT EXCLUDE THE POSSIBILITY OF EXPOSURE TO HCV. 02/04/2024 11:0 5 AM CDT Shivam Lombardo DO LABORATORY Final Re sult Performing Organization Address [facility]/ZIP Co de Phone Number [facility] [address] [place] [address], [phone] * DIABETIC RETINOPATHY EXAM (NEGATIVE) (09/02/2023) [facility] Scanned SCANNING Final Resu lt Performing Organization Address City/[facility]/ZIP Co de Phone Number [facility] * (ABNORMAL) LIPID PANEL (08/08/2023 11:25 AM COMMUNICATIONS PROGRAM MANAGER) Pathologist [facility] CHOLESTEROL 123 100 - 199 mg/dL [facility] TRIGLYCERIDES 123 0 - 149 mg/dL [facility] HDL 32(L) >39 mg/dL [facility] VLDL CALCULATION 22 5 - 40 mg/dL [facility] LDL (CALCULATED) 69 0 - 99 mg/dL [facility] 1 08/08/2023 11:2 5 AM COMMUNICATIONS PROGRAM MANAGER 08/08/2023 Narrative [facility] - 08/09/2023 9:11 AM COMMUNICATIONS PROGRAM MANAGER Performed at: 01 - [facility] [address] [id number] Production Line Manager: Luciano Lawrence PhD, Phone: [phone] us Shivam Lombardo DO LABORATORY Final Re sult [facility] [address] [place] [address] [facility] * BONE DENSITY GENERIC (07/04/2022) Anatomical Region Laterality Modality Other 07/04/2022 [facility] Scanned SCANNING Final Resu lt from Last 3 Months or Most Recently Relevant to Health Maintenance Insurance MEDICARE [employer] Care Teams 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
--- OUTSIDE RECORDS SUMMARY | 2024-11-20 01:51 | XMS_ITS | Clinical Summary ---
Author Organization [facility] Address [address], [facility] [address] [place] [address] Phone Care Team Providers Care Marketing Traffic Manager Name Role Phone Shivam Lombardo DO Primary Care Provider + Trini Lazaro MD Unavailable Jordi Olguin MD Unavailable [phone] Allergies No known active allergies Medications citalopram [...] by mouth daily. 4 05/20/20 25 Active furosemide (LASIX) 40 MG Tablet Take 40 mg by mouth daily. 5 Active Eliquis DVT/PE Starter Pack 5 MG Tablet Therapy Pack Take 2 tablets (10 mg total) by mouth 2 (two) times daily for 7 days, then take 1 tablet (5 mg total) by mouth 2 (two) times daily. 5 Active Ventolin HFA 108 (90 Base) MCG/ACT Aerosol Solution take 2 Puffs by inhalation. Active furosemide (LASIX) 20 MG Tablet Take 1 Tablet by mouth daily. 4 11/17/19 Discontinu ed(Med List Clean Up) FeroSul 325 (65 Fe) MG Tablet Take 325 mg by mouth. 10/27/19 Discontinu ed(Med List Clean Up) Active Problems Problem Noted Date Diagnosed Date Anemia, unspecified 11/05/2024 Iron deficiency 10/05/2024 Low grade myelodysplastic syndrome lesions 06/08 Pancytopenia 01/06/2024 Hypertension Encounters Date Type Department Care Team Description 11/19/2024 Telephone [facility] [address] [phone] Jordi Olguin MD 11/16/2024 1:45 PM CDT Clinical Support [facility] [address] [phone] Nurse, Cc Lynette 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); Pancytopenia (HCC); MDS (myelodysplastic syndrome), low grade (HCC) 11/16/2024 1:30 PM CDT Office Visit [facility] [address] [phone] Cristina Maldonado, MANIFEST CLERK, BOTTOM IRONER Pancytopenia (HCC) (Primary Dx); MDS (myelodysplastic syndrome), low grade (HCC) 11/16/2024 Travel 11/12/2024 Telephone [facility] [address] [phone] Jordi Olguin MD 11/10/2024 Telephone [facility] [address] [phone] Jordi Olguin MD Canopy Call / questions 11/09/2024 1:30 PM CDT Clinical Support [facility] [address] [phone] Nurse, Cc Ofizaiahon 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); Pancytopenia (HCC); MDS (myelodysplastic syndrome), low grade (HCC) 11/09/2024 Travel 11/02/2024 1:30 PM CDT Clinical Support [facility] [address] [address] Nurse, Cc Ofallon MDS (myelodysplastic syndrome), low grade (HCC) (Primary Dx); Pancytopenia (HCC) 11/02/2024 Travel 11/02/2024 Telephone [facility] [address] [phone] Jordi Olguin MD Canopy Call / CBC and EPO 10/27/2024 Telephone [facility] [address] [phone] Jordi Olguin MD Canopy Call / GI referral 10/26/2024 1:15 PM [employer]ANT OPERATOR Clinical Support [facility] [address] [phone] Nurse, Cc Ofizaiahon MDS (myelodysplastic syndrome), low grade (HCC) (Primary Dx) 10/26/2024 1:00 PM [employer] PLANT OPERATOR Office Visit [facility] [address] [phone] Jordi Olguin MD MDS (myelodysplastic syndrome), low grade (HCC) (Primary Dx) 10/26/2024 12:45 PM S[employer] G[employer] PLANT OPERATOR Lab [facility] [address] [phone] Lab, Cc Ofizaiahon MDS (myelodysplastic syndrome), low grade (HCC) 10/26/2024 Telephone [facility] [address] [phone] Jordi Olguin MD 10/26/2024 Travel 10/19/2024 11:15 AM S[employer] OPERATOR Clinical Support [facility] [address] [phone] Nurse, Cc Ofallon MDS (myelodysplastic syndrome), low grade (HCC) (Primary Dx); Pancytopenia (HCC) 10/19/2024 11:00 AM S[employer] PLANT OPERATOR Lab [facility] [address] [phone] Lab, Cc Ofallon 10/19/2024 Travel 10/12/2024 9:00 AM S[employer] PL[employer] OPERATOR Clinical Support [facility] [address] [phone] Nurse, Cc Ofallon Iron deficiency (Primary Dx); Pancytopenia (HCC) 10/12/2024 8:00 AM S[employer] PLANT OPERATOR Procedure Visit [facility] [address] [phone] Jordi Olguin MD MDS (myelodysplastic syndrome), low grade (HCC) (Primary Dx) 10/12/2024 7:45 AM S[employer] PL[employer] OPERATOR Clinical Support [facility] [address] [phone] Nurse, Cc Ofallon MDS (myelodysplastic syndrome), low grade (HCC) (Primary Dx) 10/12/2024 Travel 10/05/2024 2:15 PM [employer] OPERATOR Clinical Support [facility] [address] [phone] Nurse, Cc Ofallon Pancytopenia (HCC) (Primary Dx); MDS (myelodysplastic syndrome), low grade (HCC) 10/05/2024 1:45 PM S[employer] OPERATOR Office Visit [facility] [address] [phone] Cristina Maldonado APRN, CNP Pancytopenia (HCC) (Primary Dx); MDS (myelodysplastic syndrome), low grade (HCC) 10/05/2024 1:35 PM S[employer] PL[employer] OPERATOR Lab [facility] [address] [phone] Lab, Cc Ofallon Pancytopenia (HCC); MDS (myelodysplastic syndrome), low grade (HCC) 10/05/2024 Results Follow-Up [facility] [address] [phone] Renetta Urbina APRN, BOTTOM IRONER 10/05/2024 Telephone [facility] [address] [phone] Jordi Olguin MD 10/05/2024 Travel 09/29/2024 Telephone [facility] [address] [phone] Jordi Olguin MD Canopy Call / Er visit 09/28/2024 11:00 AM S[employer] PL[employer] OPERATOR Lab [facility] [address] [phone] Nurse, Cc Ofallon MDS (myelodysplastic syndrome), low grade (HCC) (Primary Dx); Pancytopenia (HCC) 09/28/2024 Telephone [facility] [address] [phone] Jordi Olguin MD 09/28/2024 Travel 09/28/2024 Telephone [facility] [address] [phone] Jordi Olguin MD Canopy Call / Weekly CBC and EPO 09/24/2024 1:00 PM S[employer] OPERATOR Office Visit [facility] [address] [phone] Jordi Olguin MD MDS (myelodysplastic syndrome), low grade (HCC) (Primary Dx) 09/21/2024 2:15 PM [employer] OPERATOR Clinical Support [facility] [address] [phone] Nurse, Cc Ofallon MDS (myelodysplastic syndrome), low grade (HCC) (Primary Dx) 09/21/2024 2:00 PM S[employer] OPERATOR Office Visit [facility] [address] [phone] Renetta Urbina APRN, BOTTOM IRONER MDS (myelodysplastic syndrome), low grade (HCC) (Primary Dx); Pancytopenia (HCC) 09/21/2024 1:45 PM S[employer] PL[employer] OPERATOR Lab [facility] [address] [phone] Lab, Cc Ofallon Pancytopenia (HCC); MDS (myelodysplastic syndrome), low grade (HCC) 09/21/2024 Telephone [facility] [address] [phone] Jordi Olguin MD 09/21/2024 Travel 09/07/2024 1:30 PM S[employer] OPERATOR Clinical Support [facility] [address] [phone] Nurse, Cc Ofallon MDS (myelodysplastic syndrome), low grade (HCC) (Primary Dx); Pancytopenia (HCC) 09/07/2024 Travel 08/24/2024 2:15 PM S[employer]ANT OPERATOR Clinical Support [facility] [address] [phone] Nurse, Cc Ofallon MDS (myelodysplastic syndrome), low grade (HCC) (Primary Dx) 08/24/2024 2:00 PM S[employer] G[employer] PL[employer] OPERATOR Office Visit [facility] [address] [phone] Renetta Urbina APRN, BOTTOM IRONER Pancytopenia (HCC) (Primary Dx); MDS (myelodysplastic syndrome), low grade (HCC) 08/24/2024 1:45 PM S[employer] PL[employer] OPERATOR Lab [facility] [address] [phone] Lab, Cc Ofallon Pancytopenia (HCC); MDS (myelodysplastic [...] Sign Reading Time Taken Comments Blood Pressure 100/60 11/16/2024 1:37 PM CDT Pulse 99 11/16/2024 1:37 PM CDT Temperature 36.7 C (98 F) 11/16/2024 1:37 PM CDT Respiratory Rate 18 11/16/2024 1:37 PM CDT Oxygen Saturation 94% 11/16/2024 1:37 PM CDT Inhaled Oxygen Concentration - - Weight 70.9 kg (156 lb 6.4 oz) 11/16/2024 1:37 P M CDT Height 152.4 cm (5') 11/16/2024 1:37 PM CDT Body Mass Index 30.54 11/16/2024 1:37 PM CDT Plan of Treatment Upcoming Encounters Date Type Department Care Team (Late st Contact Info) Description 11/24/2024 1:00 PM CDT Clinical Support [facility] [address] [phone] Nurse, Мария Ojeda [place] 11/30/2024 1:00 PM CDT Clinical Support [facility] [address] [phone] [facility] 12/07/2024 1:15 PM CDT Clinical Support [facility] [address] [phone] Nurse, Мария [facility] 12/07/2024 1:30 PM CDT Office Visit [facility] [address] [phone] Jordi Olguin MD [address] [place] [address] Health Maintenance Due Date Last Done Comments DEXA Bone Density 1945 TdaP Immunization 1945 Zoster Immunization (1 of 2) 1965 SARS-COV-2 Immunization (7 - Pfizer risk ) 12/22/2024 06/23/2024, 07/01/2023, 06/13/2022, Additional history exists Pneumococcal [...] Comments CBC WITH AUTO DIFF OH Routine 11/16/2024 1:21 PM CDT Pancytopenia (HCC) MDS (myelodysplastic syndrome), low grade (HCC) CBC WITH AUTO DIFF OH Routine 11/09/2024 1:23 PM CDT Pancytopenia (HCC) MDS (myelodysplastic syndrome), low grade (HCC) Low grade myelodysplastic syndrome lesions (HCC) CBC WITH AUTO DIFF OH Routine 11/02/2024 1:05 PM CDT Pancytopenia (HCC) MDS (myelodysplastic syndrome), low grade (HCC) IRON W/ IRON BINDING CAPACITY OH Routine 10/26/2024 1:16 PM S[employer] PLANT OPERATOR MDS (myelodysplastic syndrome), low grade (HCC) FERRITIN Routine 10/26/2024 1:16 PM S[employer] G[employer]EL PLANT OPERATOR MDS (myelodysplastic syndrome), low grade (HCC) COMPLETE BLOOD COUNT (CBC) WITH DIFF Routine 10/26/2024 1:16 PM SAND [employer]VEL PLANT OPERATOR MDS (myelodysplastic syndrome), low grade (HCC) CBC WITH AUTO DIFF OH Routine 10/19/2024 11:11 AM SAND AND GRAVEL PLANT OPERATOR MDS (myelodysplastic syndrome), low grade (HCC) CBC WITH AUTO DIFF OH Routine 10/12/2024 8:44 AM SAND AND GRAVEL PLANT OPERATOR Iron deficiency CCS-ACUTE LEUKEMIA PNL (NON-NY) OH B504-2 Routine 10/12/2024 8:10 AM SAND [employer] G[employer]EL PLANT OPERATOR CHROMOSOME ANALYSIS OH 5250-6 Routine 10/12/2024 8:10 AM SAND AND GRAVEL PLANT OPERATOR MDS (myelodysplastic syndrome), low grade (HCC) INTEGRATED HEMATOPATHOLOGY SUMMARY REPORT HL7 OH A023-4 Routine 10/12/2024 8:10 AM S[employer] G[employer]VEL PLANT OPERATOR ONKOS[employer] ADVANCED NGS MYELOID PANEL Routine 10/12/2024 8:10 AM S[employer]EL PLANT OPERATOR TWO (2) ANTIBODY OH 5137-5 Routine 10/12/2024 8:10 AM S[employer]EL PLANT OPERATOR BONE MARROW MORPHOLOGY OH 5199-5 Routine 10/12/2024 8:10 AM S[employer] PL[employer] OPERATOR MDS (myelodysplastic syndrome), low grade (HCC) COMPLETE BLOOD COUNT (CBC) WITH DIFF Routine 10/05/2024 1:29 PM SAND AND G[employer]EL PLANT OPERATOR Pancytopenia (HCC) MDS (myelodysplastic syndrome), low grade (HCC) CMP (COMPREHENSIVE METABOLIC PANEL) Routine 10/05/2024 1:29 PM S[employer] PL[employer] OPERATOR Pancytopenia (HCC) MDS (myelodysplastic syndrome), low grade (HCC) IRON W/ IRON BINDING CAPACITY OH Routine 10/05/2024 1:29 PM SAND AND GRAVEL PLANT OPERATOR Pancytopenia (HCC) MDS (myelodysplastic syndrome), low grade (HCC) FERRITIN Routine 10/05/2024 1:29 PM SAND AND GRAVEL PLANT OPERATOR Pancytopenia (HCC) MDS (myelodysplastic syndrome), low grade (HCC) COMPLETE BLOOD COUNT (CBC) WITH DIFF Routine 09/28/2024 11:02 AM SAND AND GRAVEL PLANT OPERATOR Pancytopenia (HCC) MDS (myelodysplastic syndrome), low grade (HCC) CMP (COMPREHENSIVE METABOLIC PANEL) Routine 09/21/2024 1:55 PM SAND AND GRAVEL PLANT OPERATOR Pancytopenia (HCC) MDS (myelodysplastic syndrome), low grade (HCC) COMPLETE BLOOD COUNT (CBC) WITH DIFF Routine 09/21/2024 1:55 PM SAND AND GRAVEL PLANT OPERATOR Pancytopenia (HCC) MDS (myelodysplastic syndrome), low grade (HCC) IRON W/ IRON BINDING CAPACITY OH Routine 09/21/2024 1:55 PM SAND AND GRAVEL PLANT OPERATOR Pancytopenia (HCC) MDS (myelodysplastic syndrome), low grade (HCC) FERRITIN Routine 09/21/2024 1:55 PM SAND AND GRAVEL PLANT OPERATOR Pancytopenia (HCC) MDS (myelodysplastic syndrome), low grade (HCC) CBC WITH AUTO DIFF OH Routine 09/07/2024 1:30 PM SAND AND GRA[employer]EL PLANT OPERATOR MDS (myelodysplastic syndrome), low grade (HCC) COMPLETE BLOOD COUNT (CBC) WITH DIFF Routine 08/24/2024 2:05 PM SAND AND GRA[employer]EL PLANT OPERATOR Pancytopenia (HCC) MDS (myelodysplastic syndrome), low grade (HCC) IRON W/ IRON BINDING CAPACITY OH Routine 08/24/2024 2:05 PM S[employer] AND G[employer]VEL PLANT OPERATOR Pancytopenia (HCC) MDS (myelodysplastic syndrome), low grade (HCC) RETICULOCYTE COUNT (RETIC) Routine 08/24/2024 2:05 PM SAND AND G[employer]EL PL[employer] OPERATOR Pancytopenia (HCC) MDS (myelodysplastic syndrome), low grade (HCC) FERRITIN Routine 08/24/2024 2:05 PM S[employer] OPERATOR Pancytopenia (HCC) MDS (myelodysplastic syndrome), low grade (HCC) from Last 3 Months Results * (ABNORMAL) CBC WITH AUTO DIFF OH (11/16/2024 1:21 PM CDT) Only the most recent of6 resultswithin the time period is included. WBC 5.5 4.0 - 10.0 10*3/uL [facility]ER[facility] DEPARTMENT CHAIR [facility] HGB 7.3(L) 11.2 - 15.7 g/dL [facility] OCCUPATIONAL THERAPY DEPARTMENT CHAIR [facility] HCT 24.3(L) 34.1 - 44.9 % [facility]UPATIONAL THERAPY DEPARTMENT CHAIR [facility] PLT 156(L) 163 - 369 10*3/uL [facility]UPATIONAL THERAPY DEPARTMENT CHAIR [facility] MPV 11.3 9.4 - 12.4 fL [facility]UP[facility]ERAP[facility] DEPARTMENT CHAIR [facility] RBC 2.54(L) 3.93 - 5.22 10*6/uL [facility]UPATIONAL THERAPY DEPARTMENT CHAIR [facility] MCV 96(H) 79 - 95 fL [facility]UP[facility]ERAP[facility] DEPARTMENT CHAIR [facility] MCH 28.7 25.6 - 32.2 pg [facility]UPATIONAL THERAPY DEPARTMENT CHAIR [facility] MCHC 30.0(L) 32.2 - 36.5 g/dL [facility]UPATIONAL THERAPY DEPARTMENT CHAIR [facility] RDW 16.5(H) 11.6 - 14.4 % [facility]UPATIONAL THERAPY DEPARTMENT CHAIR [facility] Neutrophils % 58.8 36.0 - 66.0 % [facility]UPATIONAL THERAPY DEPARTMENT CHAIR [facility] Lymphocytes % 28.3 19.0 - 40.0 % [facility] OCCUPATIONAL THERAPY DEPARTMENT CHAIR [facility] Monocytes % 8.4 4.1 - 12.1 % [facility]UPATIONAL THERAPY DEPARTMENT CHAIR [facility] Eosinophils % 3.9(H) 0.0 - 3.5 % [facility]CCUPATIONAL THERAPY DEPARTMENT CHAIR [facility] Basophils % 0.2 0.0 - 1.0 % [facility]UPATIONAL [facility]ERAPY DEPARTMENT CHAIR [facility] Absolute Neutrophils 3.2 1.4 - 6.6 10*3/uL [facility]UPATIONAL THERAPY DEPARTMENT CHAIR [facility] Absolute Lymphocytes 1.5 0.8 - 4.0 10*3/uL [facility]UPATIONAL THERAPY DEPARTMENT CHAIR [facility] Absolute Monocytes 0.5 0.2 - 1.2 10*3/uL [facility]UPATIONAL THERAPY DEPARTMENT CHAIR [facility] Absolute Eosinophils 0.2 0.0 - 0.4 10*3/uL [facility]UPATIONAL THERAPY DEPARTMENT CHAIR [facility] Absolute Basophils 0.0 0.0 - 0.1 10*3/uL [facility]UPATIONAL THERAPY DEPARTMENT CHAIR [facility] 11/16/2024 1:21 PM CDT Renetta Urbina MANIFEST CLERK, BOTTOM IRONER LAB SEND OUTS Final Result [facility]UPATIONAL THERAPY DEPARTMENT CHAIR [facility] [address] [place] [address], * IRON W/ IRON BINDING CAPACITY OH (10/26/2024 1:16 PM S[employer] PL[employer] OPERATOR) Only the most recent of4 resultswithin the time period is included. IRON 54 50 - 212 ug/dL [facility]ER[facility] DEPARTMENT CHAIR [facility] UIBC 208 155 - 355 ug/dL [facility]UPATIONAL THERAPY DEPARTMENT CHAIR [facility] TIBC 262 261 - 478 ug/dl [facility] % Saturation 21 20 - 50 % [facility]UPATIONAL [facility]ERAPY DEPARTMENT CHAIR [facility] 10/26/2024 1:16 PM SAND AND GRAVEL PLANT OPERATOR Narrative [facility] - 10/26/2024 1:54 PM S[employer] G[employer] PLANT OPERATOR Release to patient->Immediate Jordi Olguin MD LAB SEND OUTS Final Result [facility] [address] [place] [address], [place] [phone] * FERRITIN (10/26/2024 1:16 PM S[employer]EL PL[employer] OPERATOR) Only the most recent of4 resultswithin the time period is included. Ferritin 118 11 - 307 ng/mL [facility] DEPARTMENT CHAIR [facility] Blood 10/26/2024 1:16 PM S[employer] AND G[employer]EL PLANT OPERATOR Narrative [facility]UP[facility] THERAP[facility] DEPARTMENT CHAIR [facility] - 10/27/2024 2:09 PM SAND [employer] G[employer] PL[employer] OPERATOR Release to patient->Immediate us Jordi Olguin MD CHEMISTRY ORDERABLES Final R esult [facility] DEPARTMENT CHAIR [facility] [place] [address], [place] [phone] * (ABNORMAL) COMPLETE BLOOD COUNT (CBC) WITH DIFF (10/26/2024 1:16 PM S[employer] PL[employer] OPERATOR) Only the most recent of5 resultswithin the time period is included. WBC 2.3(L) 4.0 - 10.0 10*3/uL [facility]UP[facility] THERAPY DEPARTMENT CHAIR [facility] HGB 6.6(LL) 11.2 - 15.7 g/dL [facility]UPATIONAL [facility]ERAP[facility] DEPARTMENT CHAIR [facility] Comment: Critical Result reported to Ghazal King on 10/26/2024 13:28 by Nathanael Hansen. Results were read back to caller. HCT 22.3(L) 34.1 - 44.9 % [facility]UPATIONAL [facility]ERAP[facility] DEPARTMENT CHAIR [facility] PLT 109(L) 163 - 369 10*3/uL [facility]CCUPATIONAL THERAPY DEPARTMENT CHAIR [facility] MPV 11.3 9.4 - 12.4 fL [facility] O[facility]UPATIONAL THERAPY DEPARTMENT CHAIR [facility] RBC 2.16(L) 3.93 - 5.22 10*6/uL [facility]CCUPATIONAL THERAPY DEPARTMENT CHAIR [facility] MCV 103(H) 79 - 95 fL [facility]UPATIONAL THERAPY DEPARTMENT CHAIR [facility] MCH 30.6 25.6 - 32.2 pg [facility] OCCUPATIONAL THERAPY DEPARTMENT CHAIR [facility] MCHC 29.6(L) 32.2 - 36.5 g/dL [facility]CCUPATIONAL THERAPY DEPARTMENT CHAIR [facility] RDW 20.7(H) 11.6 - 14.4 % [facility]UPATIONAL THERAPY DEPARTMENT CHAIR [facility] Absolute Neutrophil Count 1,548 cells/uL [facility] Absolute Seg Count 1,548 1,440 - 6,600 cells/uL [facility] Absolute Lymph Count 624(L) 760 - 4,000 cells/uL [facility] OCCUPATIONAL THERAPY DEPARTMENT CHAIR [facility] Absolute Patrick Count 69(L) 160 - 1,200 cells/uL [facility] Absolute Eos Count 69 0 - 300 cells/uL [facility] Segmented Neutrophils 67(H) 36 - 66 % [facility] OCCUPATIONAL THERAPY DEPARTMENT CHAIR [facility] Lymphocytes 27 19 - 40 % [facility] C ENTER [facility] Monocytes 3(L) 4 - 12 % [facility] CODY TER [facility] Eosinophils 3 0 - 3 % [facility] C ENTER [facility] WBC Estimate Low [facility]UPATIONAL THERAPY DEPARTMENT CHAIR [facility] Platelet Estimate Low [facility] OCCUPATIONAL THERAPY DEPARTMENT CHAIR [facility] RBC Morphology Abnormal CANCE R OCCUPATIONAL THERAPY DEPARTMENT CHAIR [facility] Macrocytosis 1+ [facility] OCCUPATIONAL THERAPY DEPARTMENT CHAIR [facility] Anisocytosis 2+ [facility] OCCUPATIONAL THERAPY DEPARTMENT CHAIR [facility] Blood 10/26/2024 1:16 PM SAND AND G[employer]VEL PL[employer] OPERATOR Narrative [facility] OCCUPATIONAL THERAPY DEPARTMENT CHAIR [facility] - 10/27/2024 11:46 AM SAND AND G[employer]VEL PL[employer] OPERATOR Release to patient->Immediate us Jordi Olguin MD HEMATOLOGY ORDERABLES Final Result [facility]UPATIONAL THERAPY DEPARTMENT CHAIR [facility] [address] [address], * (ABNORMAL) [employer] ADVANCED NGS MYELOID PANEL (10/12/2024 8:10 AM SAND AND GRAVEL PLANT OPERATOR) Pathologist [facility] [place] [facility] NGS MYELOID PANEL, OH TL95-4 ABNORMAL (A) [facility]UPATIONAL THERAPY DEPARTMENT CHAIR [facility] Comment: [email or web address] Advanced NGS Myeloid Panel Final Report - RESULT SUMMARY: ABNORMAL - DETECTED GENOMIC ALTERATIONS: - Tier II: Variants of Potential Clinical Significance TET2 p.[id number] DNMT3A p.? Tier III: Variants of Unknown Clinical Significance DNMT3A p.[id number] - TUMOR TYPE: Myelodysplastic Neoplasm - CLINICAL [...] of myelodysplastic neoplasm with low blasts (MDS-LB, #[id number]). - PERTINENT NEGATIVE RESULTS: The following genes [...] AND PROGNOSTIC ASSOCIATIONS, O SEE BELOW [facility]MENT [facility] Comment: PROGNOSTIC ASSOCIATIONS: Gene: DNMT3A Alteration: p.? - Associated with Increased Risk of Leukemic Transformation and Decreased Overall Survival Disease Association: Myelodysplastic Syndromes INTERPRETATION SUMMARY, [place] 362369-4 SEE BELOW(A) [facility] Comment: INTERPRETATION SUMMARY: - It should be noted that this patient has had one or more additional NGS studies. The most recent study showed the following mutation(s): TET2 p.[id number] (33%) and DNMT3A p.? (36%). Please see the previous [employer] NGS Myeloid Report, Collection Date: May 11, 2024, Specimen ID: [id number]. Presence of 2 pathogenic mutations each exhibiting >10% variant allele frequency has been shown in some studies to be positively predictive for involvement by myelodysplasia (NCCN Guidelines, Myelodysplastic Syndromes, Version 2.2024; 62896785). In the absence of overt morphologic dysplasia or other disease-defining ancillary data, clonal cytopenias of undetermined significance (CCUS) or clonal hematopoiesis of indeterminate potential (CHIP) may also be considered. Correlation with morphologic features and other clinical and laboratory parameters will be required to further assess the significance of the present study results.ar. 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 Mutations [...] myelodysplasia (NCCN Guidelines, Myelodysplastic Syndromes, Version 2.2025; 59534561; [id number]; [id number]). TET2 mutations may be predictive of improved responses to hypomethylating agents (e.g. Azacytidine), according to some studies ([id number]; [id number]; (NCCN Guidelines, Myelodysplastic Syndromes, Version 2.2025)). A mutation in DNMT3A (p.?) was detected in this patients sample. DNMT3A mutations are frequently seen in myelodysplastic syndromes (MDS) and are also seen in other myeloid disorders. Of note, DNMT3A mutations may also be seen in the setting of age related clonal hematopoiesis of indeterminate potential (CHIP) (NCCN Guidelines, Myelodysplastic Syndromes, Version 2.2025; 40219903; [id number]; [id number]). In cases of confirmed MDS, DNMT3A mutations may be associated with inferior clinical outcomes including risk of transformation to acute myeloid leukemia (AML) and inferior overall prognosis ([id number]; NCCN Guidelines, Myelodysplastic Syndromes, Version 2.2025). An unclear variant in DNMT3A (p.Bvl307Gxi) was detected in this patients sample. This variant has been reported in a limited number of tumor samples (COSMIC) and has not been reported as a population variant in publicly available databases (gnomAD). Therefore, due to the paucity of functional and clinical evidence, its significance is currently unclear. Clinical and pathologic correlation is required to interpret these findings. 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 The introduction of a stop codon at this position results in a truncated form of the protein. This mutation occurs N-terminal to the catalytic core of the protein ([id number]). TET2 nonsense mutations in the N-terminal region leading to a truncated protein with a loss of a TET2 catalytic domain have been described across a range of hematological malignancies (61733974; 83459039). The TET2 gene (Tet methylcytosine dioxygenase 2) is located on chromosome 4q24. The gene encodes an epigenetic modifier involved in myelopoiesis. TET2 is frequently deleted or mutated in myeloid malignancies, including acute myeloid leukemia (AML), myelodysplastic syndrome (MDS), myeloproliferative neoplasms (MPN), and other tumor types (40163481; 61557739). Most TET2 variants are heterozygous nonsense, frameshift and missense variants that occur throughout the gene and result in loss of function, with homozygous and hemizygous variants also reported (30505081; 11766460). The prognostic impact of somatic TET2 variants remains under investigation, with some studies showing association with worse prognosis in some AML subgroups (e.g. intermediate-risk or karyotypically normal AML cases), while other studies showing no impact on survival in AML and other myeloid neoplasms (24355232; 76445008; 72488295; 97022266). - Genomic Alteration: DNMT3A p.? c.1667+1G>A Allele [...] and frameshift variations occurring throughout the gene (79359841; 42966105). 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 DNMT3A variations have been reported in myelodysplastic syndrome (MDS), acute myeloid leukemia (AML) and myeloproliferative neoplasms (MPN), associated with poor prognosis in subsets of MDS and AML, dependent on the clinical and molecular context (11059224; 96915502; 83234153). TECHNICAL SUMMARY, [place] 423381-5 SEE BELOW CANCER OCCUPATIONAL THERAPY DEPARTMENT CHAIR [facility] Comment: TECHNICAL SUMMARY: Specimen Source: Bone Marrow - Gene: TET2 Alteration: p.Pvb602Qgz Variant Category: Disease Associated Chr: 4 Pos: [id number] Ref: C Alt: T Coverage: 362 Allele Freq: 32.04 cDNA change: c.1441C>T Exon: 3 ClinVar ID: - Gene: DNMT3A Alteration: p.? Variant Category: Disease Associated Chr: 2 Pos: [id number] Ref: C Alt: T Coverage: 1380 Allele Freq: 36.16 cDNA change: c.1667+1G>A Exon: 14 ClinVar ID: - Gene: DNMT3A Alteration: p.Dhx323Mav Variant Category: Unclear Variant Chr: 2 Pos: [id number] Ref: A Alt: G Coverage: 465 Allele Freq: 3.01 cDNA change: c.929T>C Exon: 8 ClinVar ID: [place], [place] 288099-8 SEE BELOW CANCER OCCUPATIONAL THERAPY DEPARTMENT CHAIR OF [facility] Comment: METHODS: Tissue macrodissection and [...] (YENNI), used after sequencing on an Illumina L-3 GCS instrument ([place], [place]) with paired end, 151 base pair reads to collapse PCR duplicates and enable accurate counting of variant allelic frequencies. A minimum number of 100 unique reads (after removal of PCR duplicates) to detect a mutation is required. An automated process that takes into account statistical confidence of base calling and alignment and mapping quality identifies variants (Adzuna Analysis Software version 6.2.7, Released 20 Jan 2020). Following mapping of the read data to the human genome (reference build GRCh37/hg19), single nucleotide variants (SNVs), and insertion deletion events (Indels) with an allele frequency (AF) greater than 2% are detected utilizing 2 Minutes Analysis bioinformatic analytical pipeline with the exception [...] capillary electrophoresis using an LISA Genetic Analyzer ([employer], [place], [place]) and data was analyzed with Matcha. The FLT3-ITD mutation status is determined by [...] Recommendation of the Association for Molecular Pathology, [place] Society of Clinical Oncology, and College of [place] Pathologists. The Journal of molecular diagnostics: JMD. 2017 Aug;19(1):4-23. doi: 10.1016/j.jmoldx.2016.10.002. PubMed Central PMCID: UJJ0717580. PubMed PMID: (50954920)). OnkoSightAdvanced was developed and its performance characteristics were determined by [employer], a division of [employer]. This test has not been cleared or [...] comes from numerous sources, is subject to recovery operator time in response to future scientific and medical findings and correlations. [employer]. makes no representation or warranty of any kind regarding the accuracy of information provided or contained in these manuscripts, references or other sources of information. If any of the information provided by or contained in the referenced material is later deemed to be inaccurate, this may impact the accuracy of this report and interpretation of the findings. [employer]. is not obligated to notify you of [...] This assay has been approved by the [facility] based on initial validation; orthogonal testing for full validation is currently ongoing. Please contact the laboratory for more information if update is requested. [place], [place] 865851-0 SEE BELOW CANCER OCCUPATIONAL THERAPY DEPARTMENT CHAIR OF [facility] Comment: REFERENCES: 1. Jennifer MM, Lamar M, Shirley EJ, Kendrick S, Deion NI, Maximino S, Donato AM, Cristina CL, Aime DJ, Charles A, Jyoti MCGOWAN. Standards and Guidelines for the Interpretation and Reporting of Sequence Variants in Cancer: A Joint Consensus Recommendation of the Association for Molecular Pathology, [place] Society of Clinical Oncology, and College of [place] Pathologists. The Journal of molecular diagnostics : JMD. 2017 Aug;19(1):4-23. doi: 10.1016/j.jmoldx.2016.10.002. PubMed PMID: 74231340. PubMed Central PMCID: ZIZ5663981. 2. Genome Aggregation Database (gnomAD), [place], [place] (URL: https://gnomad.[employer].org) [September,] 3. Catalogue of Somatic Mutations in Cancer (COSMIC), (URL: http://cancer.bindu.ac.uk/cosmic) [September,] 4. Cara CRAIG, Nemesio P, Angel D, Luis Alfredo Armas, Jhon CH, Juan U, von Med Armas, Mahesh G, Paxton LUA, Julianne D, Sharri Armas, Andres K, Kavita H, Luis RF, Kaylie L, Kavita K. 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 Journal of clinical oncology : official journal of the [place] Society of Clinical Oncology. 2011Dec 13;30(12):1350-7. Epub 2011Nov 11. doi: 10.1200/JCO.2010.39.2886. PubMed PMID: 75521693. 5. Magi SM, Suzie RP, Kwaku M, Kned R, Augustus MG, Kitty M, Ar-Gordo E, van Carloz P, van Parmjit AG, Rebecca RA, Rachel EJ, Verharsha GE, Verbandrew E, Patricia A, Mary P, de Fabienne T, van daniela Stephenie BA, Ky BAKER. Acquired mutations in TET2 are common in myelodysplastic syndromes. Nature genetics. 2009 Feb;41(7):838-42. Epub 2008January 23. doi: 10.1038/ng.391. PubMed PMID: 04162314. 6. Kimberlyn Robles, Etta KH, Thomas S, Anastasia H, Koki K, Wilian K, Gerardo PEREZ, Mary Grace Vargas, Mayra Alexander, Oscar SP, Dane NyZ, Jossue BL, Nikolas TH, Malinda JE, Saniya Armas, Larry SILVA, Anthony MR, Jimenez YVETTE, Adrian MA, Blaine RA, Adina CD. Age-related prognostic impact of different types of DNMT3A mutations in adults with primary cytogenetically normal acute myeloid leukemia. Journal of clinical oncology : official journal of the [place] Society of Clinical Oncology. 2011Oct 24;30(7):742-50. Epub 2011Sep 24. doi: 10.1200/JCO.2010.39.2092. PubMed PMID: 94548224. PubMed Central PMCID: QPC9952124. 7. Humphrey ROOPA, Leeann M, Sam ME, Willi H, Sun Z, Santiago J, Van Fausto P, Keron I, Anupam S, Aminova O, Merissa K, Bhavik J, Gabby A, Denys ND, Heibrahima A, Taylor A, Shivam G, Hong RR, Aracely RP, Kadeem RE, Ai M, van den Hallieink MR, David HM, Vishnu JM, Karson S, Reuben A, Alexis E, Ruslan MS, Betsy A, Jayleen-Teressa O, Luz RL. Prognostic relevance of integrated genetic profiling in acute myeloid leukemia. The [place] journal of medicine. 2011Nov 14;366(12):1079-89. Epub 2011Nov 06. doi: 10.1056/TVLNcf3075620. PubMed PMID: 52384625. PubMed Central PMCID: CBJ4999264. 8. Salima F, Krystina S, Jenise Alyce V, Parveen C, Willow S, Michelle, Cl O, Collette Santiago ROOPA, Corky F, Sharmila Green, Addie Y, Plo I, Dar FJ, Feliberto C, Perez N, Mary C, Zamzam SP, Dessen P, Mayelin J, GeronimoF, Mahnaz M, Faith W, Doug OA. Mutation in TET2 in myeloid cancers. The [place] journal of medicine. 2008January 20;360(22):2289-301. doi: 10.1056/JRFWbh2511309. PubMed PMID: 18398504. 9. Isrrael Muniz, Nabil KE, Yuan DOBSON, Doni Gunderson, Ren DP, Kim N, Gianni A, Nelda H, Luz LIGHT, Ayan D, Ayush-Iwona G, Anamaria BL. Validation of a prognostic model and the impact of mutations in patients with lower-risk myelodysplastic syndromes. Journal of clinical oncology : official journal of the [place] Society of Clinical Oncology. 2011May 15;30(27):3376-82. Epub 2011Mar 31. doi: 10.1200/JCO.2010.40.7379. PubMed PMID: 40876111. PubMed Central PMCID: HWX9067379. 10. Naksmith H, Kunimoto H. TET2 as an epigenetic master regulator for normal and malignant hematopoiesis. Cancer science. 2014 Apr;105(9):1093-9. Epub 2013Apr 28. doi: 10.1111/shruti.60601. PubMed PMID: 63095118. PubMed Central PMCID: WVX3292049. 11. Jj LOUIS, Doni Gunderson, Humphrey ROOPA, Luz LIGHT. The role of mutations in epigenetic regulators in myeloid malignancies. Nature reviews. Cancer. 2012 Apr;12(9):599-612. Epub 2011Apr 11. doi: 10.1038/pcg4512. PubMed PMID: 50977258. 12. Doni Reyna Levine RL, Valentine I. TET family proteins and their role in stem cell differentiation and transformation. Cell stem cell. 2011 Apr 27;9(3):193-204. doi: 10.1016/j.stem.2011.08.007. PubMed PMID: 96351257. PubMed Central PMCID: YNP5105859. 13. Lesley Iglesias, Austen Rm, Lilli F, Allen M, Tita G, Rio B, Brad J, Esther M, Doug LAWRENCE, Stephen A. TET2 mutations in cytogenetically normal acute myeloid leukemia: clinical implications and evolutionary patterns. Genes, chromosomes & cancer. 2014 May;53(10):824-32. Epub 2013Jan 28. doi: 10.1002/gcc.18103. PubMed PMID: 32195534. 14. Jennifer KK, Bijan LF, Tyler Y, Alonso J, Garibay Z, Lani SJ. DNA methyltransferases in hematologic malignancies. Seminars in hematology. 2013 Aug;50(1):48-60. doi: 10.1053/j.seminhematol.005. PubMed PMID: 76289415. 15. Mecca GIBBONS, River Nobles, Mahesh ADAMS, [...] Perico ROOPA, Kelly PA, Jose David T, Walker J, Evelia J, Soriano MA, Justo S, Suellen WD, Ronny N, Winston R, Danisha P, Jason MH, Sid DC, Janna TA, Jose JF, Alejandro ER, Oscar RK. 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 The [place] journal of medicine. 2009Aug 10;363(25):2424-33. Epub 2009Jul 05. doi: 10.1056/YHRRnb3737417. PubMed PMID: 14338263. PubMed Central PMCID: XGH8147376. 16. Tabitha M, Jenise Hall MG, Deepti L. The genetic basis of myelodysplasia and its clinical relevance. Blood. 2013 Aug 06;122(25):4021-34. Epub 2012Jun 11. doi: 10.1182/onplj-4845-22-866656. PubMed PMID: 18410079. PubMed Central PMCID: EWT1374672. 17. Raul Nobles, Jennifer Alatorre, Bhavik J, Mattehw Q, Katina W, Ramu M, Loreto NyG, Becca J, Crabtree P, Gupta Y. Crystal structure of TET2-DNA complex: insight into TET-mediated 5mC oxidation. Cell. 2012Aug 13;155(7):1545-55. Epub 2012Jul 30. doi: 10.1016/j.cell.2013.11.020. PubMed PMID: 90941050. 18. Etta PATRICIO, Koki Catherine, Gerardo PEREZ, [...] clinical oncology : official journal of the [place] Society of Clinical Oncology. 2010Nov 24;29(10):1373-81. Epub 2010Oct 17. doi: 10.1200/JCO.2009.32.7742. PubMed PMID: 12317587. PubMed Central PMCID: VRS1776504. 19. Matheus S, Maite P, Narciso J, Keshav A, Payam PV, Kaila BG, Mckay RC, Lian CH, Santy N, Rene A, Hong JM, Molvangie V, Kaci FC, Dexter MJ, Geremias B, Segun L, Geraldine LUA, Martha C, Unique G, Condon A, Banahan BF, Nikos S, Katamanuelsan S, Hector HM, Elsie MD, Reinier M, Yoly J, Richard C, Jihan L, Noemí G, Oscar VargasG, Ayan D, Rosa D, Anamaria BL. Age-related clonal hematopoiesis associated with adverse outcomes. The [place] journal of medicine. 2013Aug 19;371(26):2488-98. Epub 2013Jul 21. doi: 10.1056/CKTDiu4250185. PubMed PMID: 26557205. PubMed Central PMCID: YXU9855504. 20. Norberto G, Jessy AK, Salvatoreaker RE, Georgi J, Allyson SA, Svetlana SF, Emelinat K, Damon E, Sarahi BM, Fromrosa M, Lincoln SM, Svhermesson O, Felicen M, Dulce Maria M, Tracey S, Nikos SB, Nettie JL, Malorie ES, Bill PF, Diana P, Trav H, Saúl CM, Wiliam SA. Clonal hematopoiesis and blood-cancer risk inferred from blood DNA sequence. The [place] journal of medicine. 2013Aug 19;371(26):2477-87. Epub 2013Jul 21. doi: 10.1056/ESNXzd1188336. PubMed PMID: 40916670. PubMed Central PMCID: LNM4555251. 21. Rufino Catherine, Guanako D, Nora S, Favian R, Ellis CRAWFORD. Implications of Mutation Profiling in Myeloid Malignancies-PART 2: Myeloproliferative Neoplasms and Other Myeloid Malignancies. Oncology ([place], [place] 2018 January 07;32(5):e45-e51. Epub 2017January 07. PubMed PMID: 95135183. 22. NCCN Guidelines, Myelodysplastic Syndromes, Version 2.202 23. Mahesh ADAMS, River L, Tyler D, Laron J, Sai M, Nadir M, Fernanda R, Prashant H, Erma J, O'Alana M, Jacinta C, Anant J, Danisha P, Jose JF, Alejandro ER, Oscar RK, Mecca GIBBONS, Janna TA. Recurrent DNMT3A mutations in patients with myelodysplastic syndromes. Leukemia. 2011 Feb;25(7):1153-8. Epub 2010Nov 10. doi: 10.1038/ross.2010.44. PubMed PMID: 34025644. PubMed Central PMCID: BYI7789891. REPORT GARCIA MARA [id number] SEE BELOW CANCER OCCUPATIONAL THERAPY DEPARTMENT CHAIR [facility] Comment: Hanna Hall M.D., Public Services Assistant Electronically signed by Brice Barber is a division of [employer] [facility] [place] [address] Created SatOct 22 16:34:03 2024 10/12/2024 8:10 AM [employer] OPERATOR Narrative CANCER OCCUPATIONAL THERAPY DEPARTMENT CHAIR [facility] - 10/22/2024 4:45 PM [employer] OPERATOR Testing performed at: [employer]. [facility] [address], Public Services Assistant: Dr. Parveen Hoffman M.D.; [facility] Accn#:[id number] Jordi Olguni MD LAB SEND OUTS Final Result Performing Organization Address City/State/[facility] Co de Phone Number CANCER OCCUPATIONAL THERAPY DEPARTMENT CHAIR [facility] [place] [address], * (ABNORMAL) INTEGRATED HEMATOPATHOLOGY SUMMARY REPORT HL7 [place] A023-4 (10/12/2024 8:10 AM [employer] OPERATOR) COMP. BONE MARROW REPORT Positive (A) CANCER OCCUPATIONAL THERAPY DEPARTMENT CHAIR [facility] Clinical Information D46.Z, D61.818 CANCER OCCUPATIONAL THERAPY DEPARTMENT CHAIR [facility] Specimen Comment See Note CAN CER OCCUPATIONAL THERAPY DEPARTMENT CHAIR [facility] Comment: HEPARIN, EDTA, CORE, ASPIRATE, SLIDES DX: PANCYTOPENIA, MDSDIAGNOSIS UNDER CONSIDERATION MDS;PAANCYTOPENIA Diagnosis See Note CANCER CODY TER SPECIALISTS [facility] Comment: BONE MARROW; ILIAC CREST; CORE [...] mutations; See comments. 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 The translocation t(11;22) identified in this study is a common recurrent constitutional translocation and has been found in a large number of families as a constitutional chromosomal abnormality (see cytogenetics report). Correlation with other relevant clinical and laboratory data is suggested. Morphology See Note(A) [facility] Comment: BONE MARROW; ILIAC CREST; CORE [...] CYTOMETRY ANALYSIS FOR MYELOID/LYMPHOID OH See Note [facility] Comment: Bone marrow aspirate: - Flow cytometric [...] %. IHC:Myeloid Disorder Immunistochemical Analysis See Note [facility] Comment:No increase in CD34+ blasts or CD117+ immature precursors. 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 They may not be cleared or approved by the U.S. Food and Drug Administration. The FDA has determined that such clearance or approval is not necessary. These results may be used for clinical, investigational or for research purposes, and should be interpreted with other relevant clinicopathologic data. Electronic Signature See Note [facility] Comment: Deanna Carlson M.D. Hematopathologist, ex. [phone] This report was electronically signed. 10/12/2024 8:10 AM [employer] OPERATOR Narrative [facility] - 10/26/2024 8:17 PM [employer] OPERATOR Testing performed at: [employer]. [address] [place] [address] [place] [address], Public Services Assistant: Dr. Parveen Hoffman M.D.; [facility] Accn#:[id number] us Jordi Olguin MD LAB SEND OUTS Final Result [facility]ER [facility]UPATIONAL [facility]APY [facility]PARTMENT [facility] [address] [place] [address], * TWO (2) ANTIBODY OH 5137-5 (10/12/2024 8:10 AM [employer] OPERATOR) Two (2) Antibody Non-neoplasti c [facility] Comment: INTERPRETATION No increase in CD34+ blasts or CD117+ immature precursors. COMMENT A positive control for each antibody has been reviewed and accepted. Please refer to [facility] bone marrow morphology report. Clinical Information D46.Z, D61.818 [facility] Specimen Comment See Note [facility] Comment: HEPARIN, EDTA, CORE, ASPIRATE, SLIDES DX: PANCYTOPENIA, MDSDIAGNOSIS UNDER CONSIDERATION MDS;PAANCYTOPENIA CD34 Rare blasts CANCER C ENTER [facility] Comment: Clone: QBEnd 10 Endothelial and stem cells, GIST, Blasts CD117 Rare immature precursors [facility] Comment: Clone: YR145 c-kit ligand, myeloid and mast cell marker, GIST Disclaimer See Note CANCER CE NTER [facility] Comment: These tests were developed and their performance characteristics determined by [employer]. They may not be cleared or approved [...] perform these tests. Associated Tests See Note [facility] Comment: Flow Cytometry Analysis for Myeloid/Lymphoid Disorders and Acute Leukemia released on: 10/14/2024 Bone Marrow Morphology released on: 10/14/2024 Estefania(KUNAL) Advanced NGS Myeloid Report Cytogenetics Electronic Signature See Note [facility] Comment: Deanna Carlson M.D. Pathologist, ex. [phone] This report was electronically signed. 10/12/2024 8:10 AM [employer] OPERATOR Narrative [facility] - 10/15/2024 9:19 AM [employer] OPERATOR Testing performed at: [employer]. [address] [place] [address] [place] [address], Public Services Assistant: Dr. Parveen Hoffman M.D.; [facility] Accn#:[id number] Jordi Olguin MD LAB SEND OUTS Final Result CANCER OCCUPATIONAL THERAPY DEPARTMENT CHAIR [facility] [place] [address], * CCS-ACUTE LEUKEMIA PNL (NON-NY) CT B504-2 (10/12/2024 8:10 AM [employer] OPERATOR) ACUTE LEUKEMIA FLOW PC Negative CANCER OCCUPATIONAL THERAPY DEPARTMENT CHAIR [facility] Comment: INTERPRETATION Bone marrow aspirate: - Flow [...] T-LGL cells comprise %. DISCLAIMER: Antibodies Analyzed: CD19,CD20,CD22,CD10,CD11c,CD23,FMC7,Larimore,Lambda,CD2,CD3,CD4,CD5, CD7,CD8,CD56,CD57,CD11b,CD13,CD14,CD16,CD33,CD64,CD34,CD38,CD117, HLA-DR,CD45 - The technical component of Flow Cytometry was performed at [facility] [place] [address]. These tests were developed and their performance characteristics were determined by [facility], [facility]. They may not be cleared or approved by the U.S. Food and Drug Administration. The FDA has determined that such clearance or approval is not necessary. These results may be used for clinical, investigational or for research purposes, and should be interpreted with other relevant clinicopathologic data. ASSOCIATED TESTS: Bone Marrow Morphology released on: 10/14/2024 [employer] Advanced NGS Myeloid Report Cytogenetics Myeloid Disorder Immunohistochemical Analysis released on: 10/14/2024 ELECTRONIC SIGNATURE: Deanna Carlson M.D. Hematopathologist, ex. [phone] This report was electronically signed. 10/12/2024 8:10 AM [employer] OPERATOR Narrative [facility] - 10/15/2024 9:19 AM [employer] OPERATOR Testing performed at: [employer]. [address] [place] [address], Public Services Assistant: Dr. 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 Normal cells were not found. - NOTE: translocation t(11;22) was identified in a prior bone marrow specimen (please refer to a prior bone marrow cytogenetic report [id number], 05/11/2024). The translocation t(11;22) identified in this [...] as clinical indication oncology chromosome analysis [facility] study follow-up of abnormal BM cytogenetics findings). 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] Clinical Information D46.Z, D61.818 CANCER OCCUPATIONAL THERAPY DEPARTMENT CHAIR [facility] Specimen Comment See Note [facility] Comment: HEPARIN, EDTA, CORE, ASPIRATE, SLIDES DX: PANCYTOPENIA, MDSDIAGNOSIS UNDER CONSIDERATION MDS;PAANCYTOPENIA Karyotype 46,XX,t( 11;22)(q 23;q11.2 )?c[20]( A) CANCER OCCUPATIONAL THERAPY DEPARTMENT CHAIR [facility] Metaphases Counted 20 [facility] Metaphases Analyzed 20 [facility] Metaphases Karyotyped 3 [employer] [facility] OCCUPATIONAL THERAPY DEPARTMENT CHAIR [facility] GTG Band Level 400 [facility] Culture Type(s) [facility]U [facility] THERAPY DEPARTMENT CHAIR [facility] Comment: REFERENCES: Mihai L, Natasha J, Tano A, Priscilla M, Leora C, Caseyelli AM, Hutchinson TH, Shahzad D, Sebastian L, Hunter N, et al. The 11q;22q translocation: a collaborative study of 20 new cases and analysis of 110 families. Hum Radha. 1983;64(4):343-55. - Alejandrina H, Shavonne H, Ministerio T, Ken H, Izzy M, Huan T, [...] and its performance characteristics were determined by avolution It has not been cleared or approved [...] on: 10/14/2024 ELECTRONIC SIGNATURE: Vaughn Gupta, PhD, [facility] Director, Cancer Cytogenetics This report was electronically signed. 10/12/2024 8:10 AM SAND AND GRAVEL PLANT OPERATOR Narrative [facility] - 10/16/2024 3:16 PM SAND AND GRAVEL PLANT OPERATOR Testing performed at: [employer]. [address] [place] [address], Public Services Assistant: Dr. Parveen Hoffman M.D.; [facility] Accn#:[id number] Release to patient->Immediate us Jordi Olguin MD PATHOLOGY/CYTOLOGY ORDERABLE S Final Result CANCER OCCUPATIONAL THERAPY DEPARTMENT CHAIR [facility] [address] [place] [address], * (ABNORMAL) BONE MARROW MORPHOLOGY CT 5199-5 (10/12/2024 8:10 AM SAND AND GRAVEL PLANT OPERATOR) BONE MARROW ANALYSIS Positive (A) CANCER OCCUPATIONAL THERAPY DEPARTMENT CHAIR [facility] Comment: COMMENT Correlation with pending genetic studies and other relevant clinical and laboratory data is suggested for further characterization. Clinical Information D46.Z, D61.818 CANCER OCCUPATIONAL THERAPY DEPARTMENT CHAIR [facility] Diagnosis Code(s) D46.Z, D61.818 CANCER OCCUPATIONAL THERAPY DEPARTMENT CHAIR [facility] Diagnosis See Note CANCER CODY TER [facility] Comment: BONE MARROW; ILIAC CREST; CORE [...] comments. Specimen Comment See Note CAN CER OCCUPATIONAL THERAPY DEPARTMENT CHAIR [facility] Comment: HEPARIN, EDTA, CORE, ASPIRATE, SLIDES DX: PANCYTOPENIA, MDSDIAGNOSIS UNDER CONSIDERATION MDS;PAANCYTOPENIA Plasma Cells <1 0-1% % CANCER OCCUPATIONAL THERAPY DEPARTMENT CHAIR [facility] Myeloblasts 1 0-3% % CANCER C ENTER [facility] Promyelocytes 3 2-8% % CANCER OCCUPATIONAL THERAPY DEPARTMENT CHAIR [facility] Myelocytes 10 10-13% % CANCER CE NTER [facility] Metamyelocytes 11 10-15% % CANCE R OCCUPATIONAL THERAPY DEPARTMENT CHAIR [facility] Neutrophils / Bands 24 25-40% % CANCER OCCUPATIONAL THERAPY DEPARTMENT CHAIR [facility] Monocytes <1 0-1% % CANCER CODY [facility] Eosinophils 1 1-3% % CANCER C EN[facility] Basophils <1 0-1% % CANCER C[facility] Lymphocytes 2 10-15% % CANCER C [facility] Pronormoblasts 1 0-2% % CANCE R OCCUPATIONAL THERAPY DEPARTMENT CHAIR [facility] Normoblasts 47 15-25% % CANCER C EN[facility] WBC 3.0 k/uL [facility] C[facility] Hgb 6.3 gm/dL [facility] HCT 21.7 % [facility]CER C[facility] MCV 97 fL [facility] RDW 14.2 fL [facility] PLT 99 k/uL [facility] Aspirate Cellularity See Note CANCER OCCUPATIONAL THERAPY DEPARTMENT CHAIR [facility] Comment: Satisfactory quality. The submitted bone marrow aspirate smear is cellular with adequate spicules and maturing trilineage hematopoiesis. Myeloid Precursors See Note C [facility] Comment: The myeloid series shows complete granulocytic maturation to segmented neutrophils. There is no increase in number of blasts. Erythroid Precursors See Note [facility] Comment: Erythroid hyperplasia. Dyserythropoiesis in the form of megaloblastoid changes, nuclear membrane irregularities, focal budding and karyorrhexis. Megakaryocytes See Note [facility] Comment:There is focal megak aryocytic atypia. Lymphoid Cells See Note [facility] Comment:No overt cytologic a bnormalities. Iron Stain See Note [facility] Comment:Trace to absent stor age iron. No ring sideroblasts are noted. Myeloid:Erythroid Ratio 1:1 [facility] Biopsy/Clot See Note [facility] Comment: Scant subcortical core biopsy sections [...] biopsy or clot. Gross Description See Note [facility] Comment: 1) Core: Received in formalin is a core of firm brown bony material measuring 1.2 x 0.2 x 0.2cm entirely submitted in 1 cassette following decalcification. 2) Clot: Received in formalin, clotted material measuring 2.0 x 1.7 x 0.6cm in aggregate, entirely submitted in 2 cassettes. 3) Number of slides received: 10 Associated Tests See Note [facility] Comment: Flow Cytometry Analysis for Myeloid/Lymphoid Disorders and Acute Leukemia released on: 10/14/2024 Esteafnia(KUNAL) Advanced NGS Myeloid Report Cytogenetics Myeloid Disorder Immunohistochemical Analysis released on: 10/14/2024 Electronic Signature See Note CANCER OCCUPATIONAL THERAPY DEPARTMENT CHAIR [facility] Comment: Deanna Carlson M.D. Hematopathologist, ex. [phone] This report was electronically signed. 10/12/2024 8:10 AM S[employer] PLANT OPERATOR Narrative [facility] - 10/14/2024 7:45 PM S[employer] PLANT OPERATOR Testing performed at: [employer]. [address] [place] [address] [place] [address], Public Services Assistant: Dr. Parveen Hoffman M.D.; [employer] Accn#:[id number] Release to patient->Immediate Jordi Olguin MD LAB SEND OUTS Final Result CANCER OCCUPATIONAL THERAPY DEPARTMENT CHAIR [facility] [place] [address], [place] [phone] * (ABNORMAL) CMP (COMPREHENSIVE METABOLIC PANEL) (10/05/2024 1:29 PM S[employer] PLANT OPERATOR) Only the most recent of2 resultswithin the time period is included. Glucose 121(H) 70 - 105 mg/dL [facility] Blood Urea Nitrogen 28(H) 7 - 25 mg/dL [facility] Creatinine 0.9 0.6 - 1.2 mg/dL [facility] Sodium 145 136 - 145 mEq/L [facility] Potassium 4.2 3.5 - 5.1 mEq/L [facility] Chloride 104 98 - 107 mEq/L [facility] Bicarbonate 28 21 - 31 mEq/L [facility] Total Bilirubin 1.2(H) 0.3 - 1.0 mg/dL [facility] Alk. Phosphatase 71 34 - 104 U/L [facility] Aspartate Aminotransferase 23 13 - 39 U/L [facility] Alanine Aminotransferase 13 7 - 52 U/L [facility] Total Protein 5.4(L) 6.4 - 8.9 g/dL [facility] Albumin 3.3(L) 3.5 - 5.7 g/dL [facility] Calcium 9.6 8.6 - 10.3 mg/dL CANCER OCCUPATIONAL THERAPY DEPARTMENT CHAIR [facility] Anion Gap 17.2(H) 7.0 - 15.0 mEq/L [facility]ATIONAL [facility]ERAPY [facility] Globulin 2.1 2.0 - 3.5 g/dL CANCER OCCUPATIONAL THERAPY DEPARTMENT [facility] EGFR 65 >60 ml/min/1. 73m2 CANCER OCCUPATIONAL THERAPY DEPARTMENT CHAIR [facility] Comment: This eGFR is calculated using 2020 CKD-EPI Creatinine equation without race modifier based on the NKF-ASN task force recommendations Blood 10/05/2024 1:29 PM SAND [employer] GRAVEL PLANT OPERATOR Narrative CANCER OCCUPATIONAL THERAPY DEPARTMENT CHAIR [facility] - 10/05/2024 2:35 PM S[employer] PLANT OPERATOR Release to patient->Immediate IS THE PATIENT REQUIRED TO BE FASTING FOR 8 HOURS?->No Renetta Urbina APRN, BOTTOM IRONER CHEMISTRY ORDERABLES Final Result Performing Organization Address [facility] de Phone Number CANCER OCCUPATIONAL THERAPY DEPARTMENT CHAIR [facility] [place] [address], * (ABNORMAL) RETICULOCYTE COUNT (RETIC) (08/24/2024 2:05 PM S[employer] G[employer] PLANT OPERATOR) Reticulocyte count 4.27(H) 0.50 - 1.70 % CANCER OCCUPATIONAL THERAPY DEPARTMENT [facility] RET-He 36.20 28.20 - 36.60 pg [employer] [facility] OCCUPATIONAL THERAPY DEPARTMENT CHAIR [facility] Comment: RET-He is a direct assessment of incorporation of iron into erythrocyte hemoglobin. It provides an indirect measure of the iron available for new erythropoiesis over past 2-4 days. Blood 08/24/2024 2:05 PM SAND AND GRAVEL PLANT OPERATOR Narrative CANCER OCCUPATIONAL THERAPY DEPARTMENT CHAIR [facility] - 08/24/2024 2:15 PM S[employer] G[employer] PLANT OPERATOR Release to patient->Immediate Gay Dye APRN, BOTTOM IRONER HEMATOLOGY ORDERABL ES Final Result Performing Organization Address [facility] Co de Phone Number CANCER OCCUPATIONAL THERAPY DEPARTMENT [facility] [place] [address], from Last 3 Months Insurance [employer] SENIOR SUPPLEMENTAL MEDICARE Care Teams Marketing Traffic Manager Relationship Specialty Start Date End Date Shivam Lombardo DO [address] [place] [address] PCP - General Family Medicine 11/15/23 Trini Lazaro MD [address] [place] [address] Consulting Physician Oncology 11/15/23 Jordi Olguin MD [address] [place] [phone] Consulting Physician Oncology 05/11/24
--- OUTSIDE RECORDS SUMMARY | 2024-11-20 01:51 | XMS_ITS ---
Author Organization [facility] Address [address], [facility] [address] [place] [address] Phone Care Team Providers Care Web Page Designer Name Role Phone Shivam Lombardo DO Primary Care Provider + Trini Lazaro MD Unavailable Jordi Olguin MD Unavailable [phone] Active Problems Problem Noted Date Diagnosed Date [...] Plan Start Date:10/12/2024 Plan Provider:Renetta Urbina APRN, WARM IN WORKER Linked Problems Iron deficiency Treatment Medications No medications scheduled. Past Treatment and Therapy Plans No past plan information found.
--- OUTSIDE RECORDS SUMMARY | 2024-11-20 01:51 | XMS_ITS | Encounter Summary ---
Author Organization [facility] Address [address] [place] [address] Care Team Providers Care Rugby Union Footballer Name Role Phone Shivam Lombardo DO Primary Care Provider + Kimberly Vieira RN Unavailable [phone] Reason for Visit * Reason Comments Ultrasound (SCAN) Encounter Details Date Type Department Care Team (Late Contact Info) Description 11/11/2024 Scan HEALTH INFO [facility] Scanned, Doc Med Group Ultrasound (SCAN) Social History Tobacco Use Types Packs/Day Years [...] Sex Assigned at Female 07/29/2024 1:13 PM GAME DESIGNER Legal Sex Female 8:19 PM CDT Gender Identity Female 09/04/2021 4:46 PM GAME DESIGNER Sexual Orientation Not on file Occupation Industry Job Start Date Job End Date Not on file Not on file Not on file Not on file documented as of this encounter Plan of Treatment Upcoming Encounters Date Type Department Care Team (Late Contact Info) Description 01/13/2025 1:40 PM CDT Office Visit [facility] Medical Group Family & Internal Medicine - [place] [address] [place] [address] Grupo Shivam LawsonDO [address] [place] [address] documented as of this encounter Goals Goal Patient Goal Type Associated Problems Recent Progress Patient-Stated? Author Establish Plan for Symptom Monitoring for anemia aeb the below: Lifestyle On track(2024 3:55 PM CDT) No Kimberly Vieira, RN Note: .1) Patient will be knowledge [...] Procedure Name Priority Date/Time Associated Diagnosis Comments ULTRASOUND GENERIC (SCAN ORDER) 11/11/2024 documented in this encounter Results * ULTRASOUND GENERIC (SCAN ORDER) (11/11/2024) Anatomical Region Laterality Modality Other 11/11/2024 us Doc Med Group Scanned SCANNING Final Resu lt documented in this encounter Visit Diagnoses Not on filedocumented in this encounter Care Teams Rugby Union Footballer Relationship Specialty Start Date End Date Shivam Lombardo DO [address] [place] [address] PCP - General FAMILY PRACTICE 05/29/21 Kimberly Vieira, RN [address] [facility] [address] [place] [address] Registered Nurse CARE MANAGEMENT 03/23/24 documented as of this encounter
--- OUTSIDE RECORDS SUMMARY | 2024-11-20 01:51 | XMS_ITS | Clinical Summary ---
Author Organization [facility] Nhi Padilladolores Address [address] [place] [address] Care Team Providers Care Olive Pitter Name Role Phone Grupo Shivam Lawson DO [...] 02/08/2017 OSTEOPOROSIS SCREENING Completed 07/04/2022, 2021 [place] [address] MEDICARE PART A AND B [employer] MEDICARE SUPP AESSI Care Teams Olive Pitter Relationship Specialty Start Date End Date Shivam Lombardo DO [address] [place] [phone] PCP - General Family Practice 05/13/24
--- OUTSIDE RECORDS SUMMARY | 2024-11-20 01:51 | XMS_ITS | CONTINUITY OF CARE DOCUMENT ---
Author Name sami gallardo Address Unknown Organization [facility] Address [address] [place] [address] [address] [place] [address] Phone [phone] Care Team Providers Care Call Out Operator Name Role Phone Dawood PEREZ, Pee Unavailable DEON PEREZ, KODI Unavailable REESE NERI, SUDHA Bolden Unavailable INSURANCE PROVIDERS Payer name Policy type / Coverage type Novi red green party ID [id number] PAY [id number]
--- OUTSIDE RECORDS SUMMARY | 2024-11-20 01:51 | XMS_ITS | Encounter Summary ---
Author Organization [facility] Address [address] [place] [address] Care Team Providers Care Bear Keeper Name Role Phone EricashannanShivam DO Primary Care Provider + Kimberly Vieira RN Unavailable [phone] Encounter Details Date Type Department Care Team (Latest Contact Info) Description 11/19/2024 2:54 PM CDT - 11/19/2024 10:32 PM T Hospital Encounter [facility] Clinical Decision Unit [facility] [place], [place] [id number] Jordi Olguin MD [address] [facility] [address] [place] [address] Discharge Disposition: Home or Self Care [...] Sex Assigned at Female 07/29/2024 1:13 PM CUSTOMS INSPECTOR Legal Sex Female 8:19 PM CDT Gender Identity Female 09/04/2021 4:46 PM CUSTOMS INSPECTOR Sexual Orientation Not on file Occupation Industry [...] CDT Inhaled Oxygen Concentration - - Weight - - Height - - Body Mass Index - - documented in this encounter Medications at Time of Discharge acetaminophen (TYLENOL) 325 MG tablet Take 2 tablets (650 mg total) by mouth every 6 (six) hours as needed. 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 74 tablet 11/12/2024 Blood Glucose Monitoring Suppl (ONE TOUCH ULTRA 2) w/Device KitIndications:Typ e 2 diabetes mellitus without complication, without long-term current use of insulin ([facility]) Check blood sugar once daily in AM [...] WITH BREAKFAST 90 tablet 07/29/2024 furosemide (LASIX) 40 MG tabletIndications: Hepatic cirrhosis, unspecified hepatic cirrhosis type, unspecified whether ascites present ([facility]/HCC) Take 1 tablet (40 mg total) by mouth daily. 90 tablet 1 11/06/2024 Glucose Blood test stripIndications:T ype 2 diabetes mellitus without complication, without long-term current use of insulin ([facility]/HCC) Check blood sugar once daily in AM when fasting 100 strip 11 05/30/2022 Lancets (ONETOUCH ULTRASOFT) lancetsIndications :Type 2 diabetes mellitus without complication, without long-term current use of insulin ([facility]) Check blood sugar once daily in AM when fasting 1 each 11 05/30/2022 Lidocaine 1.8 % Patch DAILY as needed for pain 06/12/2024 lisinopril (PRINIVIL) 20 MG tabletIndications: Primary hypertension [...] MCG/ACT inhalerIndications :Mild intermittent asthma without complication ([facility]/HCC) INHALE 2 PUFFS INTO THE LUNGS EVERY 6 (SIX) HOURS NEEDED FOR WHEEZING. 54 g 10/26/2024 documented as of this encounter Plan of Treatment Upcoming Encounters Date Type Department Care Team (Late st Contact Info) Description 01/13/2025 1:40 PM CDT Office Visit [facility] Medical Group Family & Internal Medicine [address] [phone] Shivam Lombardo DO [address] [place] [address] Pending Results Name Type Priority Associated Diagnoses Date /Time TYPE & SCREEN Blood Bank Routine Iron deficiency anemia Pancytopenia (CMS/HCC) 11/19/2024 5:50 PM CDT documented as of this encounter Goals Goal [...] 5:50 PM CDT Iron deficiency anemia Pancytopenia (CMS/HCC) documented in this encounter Results * TRANSFUSE RED BLOOD CELLS (11/19/2024 9:34 PM CDT) Jordi Olguin MD NURSING TREATMENT ORDERABLES - BLOOD ADMIN Final Result documented in this encounter Visit Diagnoses Diagnosis Iron deficiency anemia- Primary Iron deficiency anemia, unspecified Pancytopenia (CMS/HCC) Other pancytopenia documented in this encounter Administered Medications Inactive Administered Medications - up to 3 most recent administrations Medication Order MAR Action Action Date Dose Rate Site sodium chloride 0.9% infusion at 10 mL/hr, Intravenous, Continuous, Starting on Ayaka 11/19/24 at 1815, Until Sat11/20/24 at 0035, Infuse at TKO rate New Bag 11/19/2024 7:36 PM CDT 100 mLs 10 mL/hr documented in this encounter Active and Recently Administered Medications Times are shown in CDT. Continuous Medication Order 11/17/2024 11/18/2024 11/19/2024 sodium chloride 0.9% infusion at 10 mL/hr, Intravenous, Continuous, Starting on Ayaka 11/19/24 at 1815, Until Sat11/20/24 at 0035, Infuse at TKO rate 1936 (New Bag - Prov ider: Judith Salcdio RN) documented in this encounter Care Teams Bear Keeper Relationship Specialty Start Date End Date Shivam Lombardo DO [address] [place] [phone] PCP - General FAMILY PRACTICE 05/29/21 Kimberly Vieira, RN [address] [facility] [address] [place] [address] Registered Nurse CARE MANAGEMENT 03/23/24 documented as of this encounter
--- OUTSIDE RECORDS SUMMARY | 2024-11-20 01:51 | XMS_ITS | Encounter Summary ---
Author Organization [facility] Address [address] [place] [address] Care Team Providers Care Campus Receptionist Name Role Phone Shivam Lombardo DO Primary Care Provider + Kimberyl Vieira RN Unavailable [phone] Encounter Details Date Type Department Care Team (Late st Contact Info) Description 11/15/2022 MyChart Message Enc [facility] Medical Group Family & Internal Medicine [place] [address] [place] [address] Shivam Lombardo DO [address] [place] [address] Mammogram Results Social History Tobacco Use Types Packs/Day Years Used Date Smoking Tobacco: Never Smokeless Tobacco: Never Alcohol Use Standard Drinks/Week Comments Never 0 (1 standard drink = 0.6 oz pur e alcohol) PHQ-2 Answer Date Recorded Patient Health Questionnaire-2 Score 0 10/15/2022 Comments No Sex and Gender Information Value Date Recorded Sex Assigned at Female 07/29/2024 1:13 PM DRY CELL SEALER Legal Sex Female 8:19 PM CDT Gender Identity Female 09/04/2021 4:46 PM DRY CELL SEALER Sexual Orientation Not on file Occupation Industry Job Start Date Job End Date Not on file Not on file Not on file Not on file documented as of this encounter Plan of Treatment Upcoming Encounters Date Type Department Care Team (Late st Contact Info) Description 01/13/2025 1:40 PM CDT Office Visit [facility] Family & Internal Medicine - [place] [address] [place] [address] Shivam Lombardo DO [address] [place] [address] documented as of this encounter Visit Diagnoses Not on filedocumented in this encounter Care Teams Campus Receptionist Relationship Specialty [place] [address] [place] [address] PCP - General FAMILY PRACTICE 05/29/21 Kimberly Vieira, RN [address] [address] Registered Nurse CARE MANAGEMENT 03/23/24 documented as of this encounter
--- OUTSIDE RECORDS SUMMARY | 2024-11-20 01:51 | XMS_ITS | Clinical Summary ---
Author Organization [facility] Address [address] [place] [address] Care Team Providers Care Vacuum Cleaner Mechanic Name Role Phone Khang Greer MD Primary Care Provider Source Comments [facility],non-owned Affiliates and Associated Physician Practices is amultiple site organization consisting of ambulatory clinics and hospital sitesin [place], [place], [place] and [place]. This disclosure is being madepursuant to the Care Everywhere program and may not contain all information available regarding this patient. Last updated 18.[facility] Allergies No known active allergies Medications * [...] Visit [facility] [address] [facility], [place] [phone] Chad Reza MD [facility] [place] [address] Health Maintenance Due Date Last Done Comments [...] 2:29 AM 01/26/2024 4:42 PM Care Teams Vacuum Cleaner Mechanic Relationship Specialty Start Date End Date Khang Greer MD [address] [facility] [address] [place] [address] PCP - General 10/31/16
--- OUTSIDE RECORDS SUMMARY | 2024-11-20 01:51 | XMS_ITS | Encounter Summary ---
Author Organization [facility] Address [address] [place] [address] Care Team Providers Care Manager Resort Name Role Phone Shivam Lombardo DO Primary Care Provider + Kimberly Vieira RN Unavailable [phone] Encounter Details Date Type Department Care Team (Late Contact Info) Description 02/20/2023 MyChart Message Enc [facility] Medical Group [facility] [address] [place], [place] [phone] Reduce Data, [facility] Provider Air Quality Message Social [...] Description 01/13/2025 1:40 PM CDT Office Visit [facility] Medical Group Family & Internal Medicine [address] [phone] Shivam Lombardo DO [address] [place] [address] documented as of this encounter Visit Diagnoses Not on filedocumented in this encounter Care Teams Manager Resort Relationship Specialty Start Date End Date Shivam Lombardo DO [address] [place] [address] PCP - General FAMILY PRACTICE 05/29/21 Kimberly Vieira, RN [address] [facility] [address] [place] [address] Registered Nurse CARE MANAGEMENT 03/23/24 documented as of this encounter
--- OUTSIDE RECORDS SUMMARY | 2024-11-20 01:51 | XMS_ITS | Encounter Summary ---
Author Organization [facility] Address [address] [place] [address] Care Team Providers Care Abalone Fisherman Name Role Phone EricashannanShivam Lulu DO Primary Care Provider + Kimberly Vieira RN Unavailable [phone] Encounter Details Date Type Department Care Team (Latest Contact Info) Description 11/19/2024 Travel Social History Tobacco Use Types Packs/Day [...] Sex Assigned at Female 07/29/2024 1:13 PM SLEEP TECHNOLOGIST Legal Sex Female 8:19 PM CDT Gender Identity Female 09/04/2021 4:46 PM SLEEP TECHNOLOGIST Sexual Orientation Not on file Occupation Industry Job Start Date Job End Date Not on file Not on file Not on file Not on file documented as of this encounter Plan of Treatment Upcoming Encounters Date Type Department Care Team (Late st Contact Info) Description 01/13/2025 1:40 PM CDT Office Visit [facility] Medical Group Family & Internal Medicine [facility] [address] [place] [address] Shivam Lombardo, [address] [place] [address] documented as of this encounter Goals Goal [...] on filedocumented in this encounter Care Teams Abalone Fisherman Relationship Specialty Start Date End Date Shivam Lombardo DO [address] [place] [address] PCP - General FAMILY PRACTICE 05/29/21 Kimberly Vieira, RN [address] [address] Registered Nurse CARE MANAGEMENT 03/23/24 documented as of this encounter
--- OUTSIDE RECORDS SUMMARY | 2024-11-20 01:52 | XMS_ITS | Encounter Summary ---
Author Organization [facility] Address [address] [place] [address] Phone Care Team Providers Care Senior Research Consultant Name Role Phone GrupoShivam Lulu RICO Primary Care Provider + Trini Lazaro MD Unavailable Jordi Olguin MD Unavailable [phone] Encounter Details Date Type Department Care Team (Late st Contact Info) Description 11/19/2024 Telephone [facility] [address] [address] Jordi Olguin MD [address] [facility] [address] [address] Social History Tobacco Use Types [...] encounter Miscellaneous Notes * Telephone Encounter - Giancarlo AlyssaJON - 11/19/2024 2:34 PM CDT Received a call from patient stating, she felt shaky, out of breath, and she thinks she needs her blood checked. Patient advised to go to ER. Patient refuses ER, she states it will take too long. Patient asked if she could come in for labs, then get a blood transfusion at the hospital if needed. Patient states her next appointment is not until next Saturday, she did call her primary care provider and it was suggested she call Dr. Olguin. Spoke with Dr. Olguin while here in house, verbal orders given to put in order for Type and Cross and arrange for blood transfusion at the hospital. Notified [employer] [facility] at [facility] patient needing blood transfusion, verbalized understanding, patient may come in now to outpatient registration. Labs faxed to [facility] and [employer]. Patient notified to head over to [facility] outpatient registration now and let them know she is there for a blood transfusion and call the [employer]. Patient verbalized understanding and she does have transportation. documented in this encounter Plan of Treatment Upcoming Encounters Date Type Department Care Team (Late st Contact Info) Description 11/24/2024 1:00 PM CDT Clinical Support [facility] [address] [phone] Nurse, [facility] 11/30/2024 1:00 PM CDT Clinical Support [facility] [address] [phone] Nurse, [facility] 12/07/2024 1:15 PM CDT Clinical Support [facility] [address] [phone] Nurse, [facility] 12/07/2024 1:30 PM CDT Office Visit [facility] [address] [phone] Jordi Olguin MD [address] [facility] [address] [place] [address] Scheduled Orders Name Type Priority Associated Diagnoses Orde r Schedule TYPE & SCREEN (CROSSMATCH CONVERTIBLE) Blood Bank Routine Iron deficiency Pancytopenia (HCC) MDS (myelodysplastic syndrome), low grade (HCC) Anemia, unspecified type Expected: 11/19/2024, Expires: 12/20/2024 ONC BLOOD ADMIN COMMUNICATION - [facility] Blood Bank Routine Iron deficiency Pancytopenia (HCC) MDS (myelodysplastic syndrome), low grade (HCC) Anemia, unspecified type Expected: 11/19/2024, Expires: 12/20/2024 documented as of this encounter Visit Diagnoses Diagnosis Iron deficiency- Primary Other disorders of iron metabolism Pancytopenia (HCC) Other pancytopenia MDS (myelodysplastic syndrome), low grade (HCC) Low grade myelodysplastic syndrome lesions Anemia, unspecified type documented in this encounter Care Teams Senior Research Consultant Relationship Specialty Start Date End Date Shivam Lombardo DO [address] [place] [address] PCP - General Family Medicine 11/15/23 Trini Lazaro MD [address] [place] [address] Consulting Physician Oncology 11/15/23 Jordi Olguin MD [address] [place] [address] Consulting Physician Oncology 05/11/24 documented as of this encounter
--- NOTE | 2024-11-20 02:00 | ECG_ITS ---
Test Date: 2024-11-20 02:05:11 Measurements Intervals [place] Rate: 74 P: 16 MO: 161 QRS: -6 QRSD: 134 T: 21 QT: 433 QTc: 482 Interpretive Statements SINUS RHYTHM RIGHT BUNDLE BRANCH BLOCK [120+ ms QRS DURATION, UPRIGHT V1, 40+ ms S IN I/aVL/V4/V5/V6] POSSIBLE ANTERIOR MYOCARDIAL INFARCTION , OF INDETERMINATE AGE [30 ms Q WAVE IN V3/V4, OR R < 0.2 mV IN V4] Compared to ECG 05/01/2024 20:32:43 NO SIGNIFICANT CHANGE Electronically Signed On 11-20-2024 10:45:50 CDT by Jayshree Yin M.D.
--- NOTE | 2024-11-20 02:05 | ED_ITS ---
HPI - General Adult General Chief complaint: GI Bleed Stated complaint: my blood pressure keeps dropping Time Seen by Provider: 11/20/24 02:02 Source: patient and family (daughter in law) Mode of arrival: ambulatory Limitations: no limitations History of Present Illness HPI narrative: Patient presents with concern for weakness and hypotension. Also shortness of breath. She usually gets near-weekly blood transfusions for anemia due to history of leukemia (oncologist Dr Salazar located across street from [facility] but unknown affiliation, receives the rest of her care through [facility]). Usually on Saturday but performed yesterday, instead. Overnight, felt weak so checked BP which was 88/45 and then 81/42 on home cuff. Had previously been on iron supplementation orally but this was discontinued and she now receives iron infusions instead. No recent pepto bismol. No history of GI bleed. Experiencing pain with inspiration. At first she states she is on anticoagulation, thinks it might end in 'pril. When asked if she thinks its clopidogrel/Plavix 75mg she states that doesn't sound correct so uncertain. No steroids or NSAIDs. She has felt shaky. No abdominal pain. No rash, chest pain, cough, nauesa, vomiting. She has chronic diarrhea but states lately black like tar. She is chronically cold. No fevers or chills though. Related Data Home Medications ?Medication ?Instructions ?Recorded ?Confirmed ?Last Taken ?Type cyanocobalamin (vitamin B-12) 1,000 mcg PO DAILY 10/08/19 11/20/24 11/19/24 History 1,000 mcg capsule furosemide 20 mg tablet 20 mg PO DAILY 10/08/19 11/20/24 10/26/19 History fenofibrate 160 mg tablet 145 mg PO DAILY 05/18/20 11/20/24 11/19/24 History citalopram 10 mg tablet 10 mg PO DAILY 03/13/21 11/20/24 11/19/24 History lisinopril 20 mg tablet 40 mg PO QHS 03/13/21 11/20/24 11/18/24 History pantoprazole 40 mg tablet,delayed 40 mg PO QAM 03/13/21 11/20/24 11/19/24 History release apixaban 5 mg (74 tabs) tablets in See Rx Instructions .Route .COMPLEX 11/20/24 11/20/24 11/19/24 History a dose pack (Eliquis DVT-PE Treat 30D Start) atorvastatin 80 mg tablet 80 mg PO DAILY 11/20/24 11/20/24 11/19/24 History fluticasone propionate 50 2 spray intranasal QAM PRN 11/20/24 11/20/24 Unknown History mcg/actuation nasal Allergies spray,suspension furosemide 40 mg tablet 40 mg PO DAILY 11/20/24 11/20/24 11/19/24 History Allergies Allergy/AdvReac Type Severity Reaction Status Date / Time No Known Allergies Allergy Verified 11/20/24 13:48 [facility] Past Medical History Medical History (Updated 11/20/24 @ 21:39 by Sole Dumont MD) Leukemia Falls Adenomatous colon polyp Thrombocytopenia Colon cancer screening Pancytopenia Cirrhosis Abnormal laboratory test Diverticulosis Pancreatitis gallstone Anxiety Gastroesophageal reflux disease DEJA (obstructive sleep apnea) No longer on CPAP after 100 lb weight loss Asthma Hypercholesterolemia Diabetes Hemoglobin A1c 5.26 February 2020 Essential hypertension Psoriasis Surgical History Surgical History History of colonoscopy with polypectomy History of total left knee replacement (10/2019) Hx of hysterectomy Due to uterine cancer History of cholecystectomy Family History Family History Father Asthma Mother Hypertension Diabetes mellitus Acute myocardial infarction Sibling End-stage renal disease on hemodialysis sister COPD (chronic obstructive pulmonary disease) brother and sister Acute myocardial infarction 2 brothers Renal cancer sister Social History Social History Social History: She has 2 sons. 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 patient is a lifelong nonsmoker. She does not use any alcohol marijuana illicit drugs. The patient desires to be a full code. Her oldest son is the durable power trademark attorney for healthcare. Code status: Full code Surrogate decision maker: Oldest son Smoking status: Never smoker Second hand tobacco smoke exposure: No Alcohol intake: never Substance use: never Substance use type: does not use Do You Feel Safe in your Home?: Yes Lack of Transportation: No Lack of Food: Never True Current Housing: I Have Housing Concerned About Future Housing: No Difficulty Paying Gas/Electric Bills: No Difficulty Paying for Meds: No Currently Unemployed: No Education: Bachelor's Degree Difficulty w/ Childcare or Family Care: No Living arrangements: alone Additional living arrangements comments: She lives in her own home. She has been since 1989 Occupation/Education: retired Spiritual care concerns: No Agree to blood products: Yes Exam 2 Narrative: GENERAL: well-nourished, and in no acute distress. Mildly jaundiced HEAD: Normocephalic, atraumatic. EYES: Non injected. ENT: Nares clear, no rhinorrhea or epistaxis. NECK: Supple. CHEST: Speaking in full sentences. No respiratory distress. HEART: Regular rate and rhythm. . ABDOMEN: Soft, nondistended. EMMA exam performed with dark black stool; normal rectal tone; firm stool in vault, does not seem impacted. FOBT/guiaic positive. EXTREMITIES: Normal range of motion. No lower extremity edema. SKIN: Warm, dry, no rash. NEURO: No focal deficits. Alert and oriented x3. PSYCH: Normal mood and affect. Course Vital Signs Vital signs: Vital Signs Temperature 97.9 F 11/20/24 01:54 Pulse Rate 81 11/20/24 01:54 Respiratory Rate 14 11/20/24 01:54 Blood Pressure 99/40 L 11/20/24 01:54 Pulse Oximetry 99 11/20/24 01:54 Oxygen Delivery Room Air 11/20/24 01:54 Temperature 98.6 F 11/20/24 20:08 Pulse Rate 82 11/20/24 20:08 Respiratory Rate 15 11/20/24 20:08 Blood Pressure 110/45 L 11/20/24 20:08 Pulse Oximetry 98 11/20/24 20:08 Oxygen Delivery Room Air 11/20/24 20:00 Medical Decision Making [facility] Narrative Medical decision making narrative: Patient presents with weakness and hypotension. Also short of breath. History of leukemia with anemia requiring weekly blood transfusions, last done within the past 24 hours. In the emergency department she is afebrile vital signs notable for hypotension. 1 L IV fluids ordered. Normocytic anemia less than 7 and a 3.5 g drop from 2 weeks previous.. Also thrombocytopenia. Blood product transfusion I have discussed the proposed blood product transfusion with the patient and [id number]. I have informed the patient regarding potential risks of blood product transfusion which, though rare, include transfusion reaction, hepatitis, and HIV. The patient has been given the opportunity to ask questions about the need to be transfused and possible outcomes of not receiving this treatment. Patient has verbally agreed to undergo transfusion. Obtained signed consent and place it in the patient's chart. Order was placed for transfusion of 1 unit of packed red blood cells. FOBT positive and she reports melena. She states she had a colonoscopy with Dr. Alessio houston in the past year. Patient's hypotension is improving although her blood pressure is now 112/40 with a mean arterial pressure of 60. Another 1 L fluid is ordered. She also has an NED. Urinalysis unremarkable. Viral swab negative. Given concern for upper GI bleed with the varices and cirrhosis present on CT imaging, protonix ordered and 1g ceftriaxone as well as 50mcg octreotide. Getting nauseated at 5:10am; Zofran ordered. Discussed with Dr Suresh, gastroenterology. Patient NPO. Patient discussed with ip litigation paralegal hospitalist RENETTA Ahuja; will be IMU admission. Repeat H/H improving but still <7; another 1U ordered. Differential Diagnosis Differential Diagnosis: symptomatic anemia, electrolyte abnomalities, infection (PNA, etc); GI bleed; sequelae of malignancy; pulmonary embolism Vital Signs Vital Signs: Vital Signs Temperature 97.9 F 11/20/24 01:54 Pulse Rate 81 11/20/24 01:54 Respiratory Rate 14 11/20/24 01:54 Blood Pressure 99/40 L 11/20/24 01:54 Pulse Oximetry 99 11/20/24 01:54 Oxygen Delivery Room Air 11/20/24 01:54 Temperature 98.6 F 11/20/24 20:08 Pulse Rate 82 11/20/24 20:08 Respiratory Rate 15 11/20/24 20:08 Blood Pressure 110/45 L 11/20/24 20:08 Pulse Oximetry 98 11/20/24 20:08 Oxygen Delivery Room Air 11/20/24 20:00 Lab Data Lab results reviewed: Yes I reviewed the patient's lab results. 11/20/24 13:15 11/20/24 02:17 Labs: Lab Results 11/20/24 11/20/24 11/20/24 Range/Units 02:17 02:56 06:12 WBC 5.5 (4.5-10.0) K/mm3 RBC 2.07 L (4.2-5.4) M/mm3 Hgb 6.1 L* D 6.9 L* (12.0-15.0) g/dL Hct 19.6 L* 21.3 L (37.0-47.0) % MCV 94.7 (80-100) fl MCH 29.5 (26-34) pg MCHC 31.1 L (32-36) g/dl RDW 16.3 H (11.5-14.5) % Plt Count 132 L (150-375) k/mm3 MPV 11.8 H (7.4-10.4) fl Immature Gran % (Auto) 0.4 (0-0.5) % Neut % (Auto) 64.0 (45.5-73.1) % Lymph % (Auto) 23.9 (18.3-44.2) % [place] % (Auto) 8.6 H (2.6-8.5) % Eos % (Auto) 2.7 (0-4.4) % Baso % (Auto) 0.4 (0.2-1.2) % Lymph # (Auto) 1.31 (0.9-3.2) K/mm3 [place] # (Auto) 0.5 (0.1-0.6) K/mm3 Eos # (Auto) 0.2 (0-0.3) K/mm3 Baso # (Auto) 0.0 (0.0-0.1) K/mm3 Abs Immat Gran (auto) 0.02 (0.00-0.031) K/mm3 Absolute Neuts (auto) 3.5 (1.3-6.7) K/mm3 Absolute Nucleated RBC 0.020 H (0.0-0.012) K/mm3 Nucleated RBC % 0.4 H (0.0-0.2) % Sodium 138 (137-145) mmol/L Potassium 4.2 (3.4-5.0) mmol/L Chloride 104 (98-107) mmol/L Carbon Dioxide 26 (22-30) mmol/L Anion Gap 8 (4-12) mmol/L BUN 58 H D (7-17) mg/dL Creatinine 1.30 H (0.7-1.0) mg/dL Estim Creat Clear Calc 31 ml/min Estimated GFR 40 L (59 - ) Glucose 118 H (65-110) mg/dL Calcium 10.0 (8.4-10.2) mg/dL Magnesium 2.5 H (1.6-2.3) mg/dL Total Bilirubin 1.3 (0.2-1.3) mg/dL AST 30 (14-36) U/L ALT 21 (6-35) U/L Alkaline Phosphatase 91 (38-126) U/L Total Creatine Kinase 36 (30-135) U/L Total Protein 6.0 L (6.3-8.2) g/dL Albumin 3.1 L (3.5-5.1) g/dL Urine Color Yellow (Yellow) Urine Appearance Clear (Clear) Urine pH 5.0 (5.0-9.0) Ur Specific [place] 1.014 (1.001-1.035) Urine Protein Negative (Negative) mg/dL Urine Glucose (UA) Negative (Negative) mg/dL Urine Ketones Negative (Negative) mg/dL Ur Blood (Man) Negative (Negative) Urine Nitrate Negative (Negative) Urine Bilirubin Negative (Negative) Urine Urobilinogen 0.2 (<2.0) mg/dL Leukocyte Esterase Rfl Negative (Negative) SWATHI/UL Influenza A (RT-PCR) Negative (Negative) Influenza B (RT-PCR) Negative (Negative) RSV (RT-PCR) Negative (Negative) SARS-CoV-2 RNA (RT-PCR) Negative (Negative) Blood Type A Positive Antibody Screen Negative Crossmatch See Detail Imaging Data My impression: Impressions Chest/Abdomen/Pelvis CTA 11/20/24 05:54 IMPRESSION: 1. No pulmonary embolus. 2. Small right pleural effusion. 3. Cirrhosis of the liver portal venous hypertension. 4. Small volume of ascites. Radiologist's impression: CTA Chest Stat Rad: No evidence of pulmonary emboli. Small right pleural effusion. No pneumothorax. Mild posterior dependent atelectasis in the right lower lobe adjacent to the effusion. Coronary artery calcification. Cardiomegaly CT abdomen pelvis with contrast: Cirrhosis. No focal hepatic lesion identified. 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 Small amount of ascites. Diverticulosis without diverticulitis. Bowel is otherwise unremarkable. No obstruction. ECG Data EKG #1: Attestation: I personally reviewed and interpreted this ECG as follows: ECG completion date: 03/28/25 ECG completion time: 02:05 Prior ECG tracings: available for review (EKG from 05/01/2024.) Interpretation: Normal sinus rhythm at a rate of 74 beats per minute. MD interval 161. QRS 134. QT/QTC 433/461. RBBB given QRS greater [id number]; RSR' M-shaped pattern in V1-V3; wide, slurred S wave in lateral leads (I, aVL , not as appreciable in V5-6). T-wave inversions in lead 3; upright in contiguous inferior leads 2 and AVF. T-wave inversion in V3 and biphasic in V4. Discharge Plan Discharge Clinical Impression: Melena, Fecal occult blood test positive, Anemia, Blood transfusion during current hospitalisation, Normocytic anemia, Thrombocytopenia, NED (acute kidney injury), Weakness, Pleural effusion on right, Cirrhosis, Portal venous hypertension, Ascites Patient Disposition: Still a Patient Condition: Stable
[2024-11-20] MEDS: SODIUM CHLORIDE 0.9% IV 1,000 ML 999 ML IV CONT ×2 (02:15→03:00)
[2024-11-20 02:22] LABS: Basophils Percent Auto 0.4 % (0.2-1.2); Eosinophils Absolute Auto 0.2 K/mm3 (0-0.3); Eosinophils Percent Auto 2.7 % (0-4.4); Immature Granulocyte Absolute 0.02 K/mm3 (0.00-0.031); Immature Granulocyte Percent A 0.4 % (0-0.5); Lymphocytes Absolute Auto 1.31 K/mm3 (0.9-3.2); Lymphocytes Percent Auto 23.9 % (18.3-44.2); Mean Corpuscular HGB Conc 31.1 g/dl (32-36); Mean Corpuscular Hemoglobin 29.5 pg (26-34); Mean Corpuscular Volume 94.7 fl (80-100); Mean Platelet Volume 11.8 fl (7.4-10.4); Monocytes Absolute Auto 0.5 K/mm3 (0.1-0.6); Monocytes Percent Auto 8.6 % (2.6-8.5); Neutrophils Absolute Auto 3.5 K/mm3 (1.3-6.7); Nucleated Red Blood Cells Perc 0.4 % (0.0-0.2); Platelet Count Result 132 k/mm3 (150-375); Red Blood Count 2.07 M/mm3 (4.2-5.4); Red Cell Distribution Width 16.3 % (11.5-14.5); White Blood Count 5.5 K/mm3 (4.5-10.0)
--- OUTSIDE RECORDS SUMMARY | 2024-11-20 02:23 | XMS_ITS | Encounter Summary ---
Author Organization [facility] Address [address] [place] [address] Care Team Providers Care Boiler Control Room Operator Name Role Phone Shivam Lombardo DO Primary Care Provider + Kimberly Vieira RN Unavailable [phone] Encounter Details Date Type Department Care Team (Late st Contact Info) Description 11/15/2022 MyChart Message Enc [facility] Medical Group Family & Internal Medicine [place] [address] [place] [address] Shivam Lombardo DO [address] [place] [address] Mammogram Results Social History Tobacco Use Types Packs/Day Years Used Date Smoking Tobacco: Never Smokeless Tobacco: Never Alcohol Use Standard Drinks/Week Comments Never 0 (1 standard drink = 0.6 oz pur e alcohol) PHQ-2 Answer Date Recorded Patient Health Questionnaire-2 Score 0 10/15/2022 Comments No Sex and Gender Information Value Date Recorded Sex Assigned at Female 07/29/2024 1:13 PM CITY MARSHAL Legal Sex Female 8:19 PM CDT Gender Identity Female 09/04/2021 4:46 PM CITY MARSHAL Sexual Orientation Not on file Occupation Industry Job Start Date Job End Date Not on file Not on file Not on file Not on file documented as of this encounter Plan of Treatment Upcoming Encounters Date Type Department Care Team (Late st Contact Info) Description 01/13/2025 1:40 PM CDT Office Visit [facility] Family & Internal Medicine - [place] [address] [place] [address] Shivam Lombardo DO [address] [place] [address] documented as of this encounter Visit Diagnoses Not on filedocumented in this encounter Care Teams Boiler Control Room Operator Relationship Specialty [place] [address] [place] [address] PCP - General FAMILY PRACTICE 05/29/21 Kimberly Vieira, RN [address] [address] Registered Nurse CARE MANAGEMENT 03/23/24 documented as of this encounter
--- OUTSIDE RECORDS SUMMARY | 2024-11-20 02:23 | XMS_ITS | Encounter Summary ---
Author Organization [facility] Address [address] [place] [address] Care Team Providers Care Multineedle Shirrer Name Role Phone Shivam Lombardo DO Primary Care Provider + Kimberly Vieira RN Unavailable [phone] Encounter Details Date Type Department Care Team (Late Contact Info) Description 02/20/2023 MyChart Message Enc [facility] Medical Group [facility] [address] [place], [place] [phone] [employer], [facility] Provider Air Quality Message Social History Tobacco Use Types Packs/Day Years Used Date Smoking Tobacco: Never Smokeless Tobacco: Never Alcohol Use Standard Drinks/Week Comments Never 0 (1 standard drink = 0.6 oz pur e alcohol) PHQ-2 Answer Date Recorded Patient Health Questionnaire-2 Score 0 10/15/2022 Comments No Sex and Gender Information Value Date Recorded Sex Assigned at Female 07/29/2024 1:13 PM SLICING MACHINE OPERATOR Legal Sex Female 8:19 PM CDT Gender Identity Female 09/04/2021 4:46 PM SLICING MACHINE OPERATOR Sexual Orientation Not on file Occupation Industry Job Start Date Job End Date Not on file Not on file Not on file Not on file documented as of this encounter Plan of Treatment Upcoming Encounters Date Type Department Care Team (Late Contact Info) Description 01/13/2025 1:40 PM CDT Office Visit [facility] Medical Group Family & Internal Medicine [address] [phone] Shivam Lombardo DO [address] [place] [address] documented as of this encounter Visit Diagnoses Not on filedocumented in this encounter Care Teams Multineedle Shirrer Relationship Specialty Start Date End Date Shivma Lombardo DO [address] [place] [address] PCP - General FAMILY PRACTICE 05/29/21 Kimberly Vieira, RN [address] [facility] [address] [place] [address] Registered Nurse CARE MANAGEMENT 03/23/24 documented as of this encounter
[2024-11-20 02:24] LABS: Hematocrit 19.6 % (37.0-47.0); Hemoglobin 6.1 g/dL (12.0-15.0)
--- OUTSIDE RECORDS SUMMARY | 2024-11-20 02:24 | XMS_ITS | Encounter Summary ---
Author Organization [facility] Address [address] [place] [address] Phone Care Team Providers Care Risk Officer Name Role Phone GrupoShivam Lulu RICO Primary Care Provider + Trini Lazaro MD Unavailable Jordi Olguin MD Unavailable [phone] Encounter Details Date Type Department Care Team (Late st Contact Info) Description 11/19/2024 Telephone [facility] [address] [address] Jordi Olguin MD [address] [facility] [address] [address] Social History Tobacco Use Types [...] Miscellaneous Notes * Telephone Encounter - Giancarlo LayssaJON - 11/19/2024 2:34 PM CDT Received a [...] for blood transfusion at the hospital. Notified Assistant Basketball Coach Hannah at [facility] patient needing blood transfusion, verbalized understanding, patient may come in now to outpatient registration. Labs faxed to [facility] and Assistant Basketball Coach. Patient notified to head over to [facility] outpatient registration now and let them know she is there for a blood transfusion and call the Assistant Basketball Coach. Patient verbalized understanding and she does have transportation. documented in this encounter Plan of Treatment Upcoming Encounters Date Type Department Care Team (Late st Contact Info) Description 11/24/2024 1:00 PM CDT Clinical Support [facility] [address] [phone] Nurse, [facility] 11/30/2024 1:00 PM CDT Clinical Support [facility] [address] [phone] Nurse, [facility] 12/07/2024 1:15 PM CDT Clinical Support [facility] [address] [phone] Nurse, [facility] 12/07/2024 1:30 PM CDT Office Visit [facility] [address] [phone] Jordi Olguin MD [address] [place] [address] [place] [address] Scheduled Orders Name Type Priority Associated [...] type documented in this encounter Care Teams Risk Officer Relationship Specialty Start Date End Date Shivam Lombardo DO [address] [place] [address] PCP - General Family Medicine 11/15/23 Trini Lazaro MD [address] [place] [address] Consulting Physician Oncology 11/15/23 Jordi Olguin MD [address] [place] [address] Consulting Physician Oncology 05/11/24 documented as of this encounter
--- OUTSIDE RECORDS SUMMARY | 2024-11-20 02:24 | XMS_ITS | Encounter Summary ---
Author Organization [facility] Address [address] [place] [address] Care Team Providers Care Fuel Quality Tech Name Role Phone EricashannanShivam DO Primary Care Provider + Kimberly Vieira RN Unavailable [phone] Encounter Details Date Type Department Care Team (Latest Contact Info) Description 11/19/2024 2:54 PM CDT - 11/19/2024 10:32 PM T Hospital Encounter [facility] Clinical Decision Unit [facility] [place], [place] [phone] Jordi Olguin MD [address] [facility] [address] [place] [address] [place] [address] Discharge Disposition: Home or Self Care [...] Sex Assigned at Female 07/29/2024 1:13 PM ANIMAL HUSBANDMAN Legal Sex Female 8:19 PM CDT Gender Identity Female 09/04/2021 4:46 PM ANIMAL HUSBANDMAN Sexual Orientation Not on file Occupation Industry [...] STARTER PACK) 5 MG tablet starter packIndications:Ac [place] deep vein thrombosis (DVT) of proximal vein of right lower extremity ([facility]) Take 2 tablets (10 mg total) by mouth 2 (two) times daily for 7 days, then take 1 tablet (5 mg total) by mouth 2 (two) times daily. 74 tablet 11/12/2024 Blood Glucose Monitoring Suppl (ONE TOUCH ULTRA 2) w/Device KitIndications:Typ e 2 diabetes mellitus without complication, without long-term current use of insulin ([facility]) Check blood sugar once [...] hepatic cirrhosis type, unspecified whether ascites present ([facility]/HCC) Take 1 tablet (40 mg total) by mouth daily. 90 tablet 1 11/06/2024 Glucose Blood test stripIndications:T ype 2 diabetes mellitus without complication, without long-term current use of insulin ([facility]/HCC) Check blood sugar once daily in AM when fasting 100 strip 11 05/30/2022 Lancets (ONETOUCH ULTRASOFT) lancetsIndications :Type 2 diabetes mellitus without complication, without long-term current use of insulin ([facility]) [...] MCG/ACT inhalerIndications :Mild intermittent asthma without complication ([facility]/HCC) INHALE 2 PUFFS INTO THE LUNGS EVERY 6 (SIX) HOURS NEEDED FOR WHEEZING. 54 g 10/26/2024 documented as of this encounter Plan of Treatment Upcoming Encounters Date Type Department Care Team (Late st Contact Info) Description 01/13/2025 1:40 PM CDT Office Visit [facility] Family & Internal Medicine [address] [phone] Shivam Lombardo DO [address] [place] [address] Pending Results Name Type Priority Associated Diagnoses [...] 1935 (New Bag - Prov ider: Judith Salcido RN) documented in this encounter Care Teams Fuel Quality Tech Relationship Specialty Start Date End Date Shivam Lombardo DO [address] [place] [address] PCP - General FAMILY PRACTICE 05/29/21 Kimberly Vieira, RN [address] [facility] [address] [place] [address] Registered Nurse CARE MANAGEMENT 03/23/24 documented as of this encounter
--- OUTSIDE RECORDS SUMMARY | 2024-11-20 02:24 | XMS_ITS | CONTINUITY OF CARE DOCUMENT ---
Author Name sami gallardo Address Unknown Organization [facility] Address [address] [place] [address] [address] [place] [address] Phone [phone] Care Team Providers Care Mud Plant Operator Name Role Phone Dawood PEREZ, Pee Unavailable DEON PEREZ, KODI Unavailable [phone] REESE NERI, SUDHA Bolden Unavailable INSURANCE PROVIDERS Payer name Policy type / Coverage type [place] [employer] party ID [id number] PAY [id number]
--- OUTSIDE RECORDS SUMMARY | 2024-11-20 02:24 | XMS_ITS ---
Author Organization [facility] Address [address] [facility] [address] [place] [address] Phone Care Team Providers Care Storage Battery Charger Name Role Phone Shivam Lombardo DO Primary Care Provider + Trini Lazaro MD Unavailable Jordi Olguin MD Unavailable [phone] Active Problems Problem Noted Date Diagnosed Date [...] Plan Start Date:10/12/2024 Plan Provider:Renetta Urbina APRN, FORMULA CHECKER Linked Problems Iron deficiency Treatment Medications No medications scheduled. Past Treatment and Therapy Plans No past plan information found.
--- OUTSIDE RECORDS SUMMARY | 2024-11-20 02:24 | XMS_ITS | Encounter Summary ---
Author Organization [facility] Address [address] [place] [address] Care Team Providers Care Infection Prevention Coordinator Name Role Phone EricashannanShivam Lulu DO Primary Care Provider + Kimberly Vieira RN Unavailable [phone] Encounter Details Date Type Department Care Team [...] Sex Assigned at Female 07/29/2024 1:13 PM BLOW MOLDING MACHINE OPERATOR Legal Sex Female 8:19 PM CDT Gender Identity Female 09/04/2021 4:46 PM BLOW MOLDING MACHINE OPERATOR Sexual Orientation Not on file Occupation Industry Job Start Date Job End Date Not on file Not on file Not on file Not on file documented as of this encounter Plan of Treatment Upcoming Encounters Date Type Department Care Team (Late st Contact Info) Description 01/13/2025 1:40 PM CDT Office Visit [facility] Family [facility] Internal Medicine [facility] [address] [place] [address] Shivam Lombardo, [address] [place] [address] documented as of this encounter Goals Goal [...] on filedocumented in this encounter Care Teams Infection Prevention Coordinator Relationship Specialty Start Date End Date Shivam Lombardo DO [address] [place] [address] PCP - General FAMILY PRACTICE 05/29/21 Kimberly Vieira, RN [address] [address] Registered Nurse CARE MANAGEMENT 03/23/24 documented as of this encounter
--- OUTSIDE RECORDS SUMMARY | 2024-11-20 02:24 | XMS_ITS | Clinical Summary ---
Author Organization [facility] Nhi Padilladolores Address [address] [place] [address] Care Team Providers Care Integration Engineer Name Role Phone Grupo Shivam Lawson DO [...] 02/08/2017 OSTEOPOROSIS SCREENING Completed 07/04/2022, 2021 [place] [address] MEDICARE PART A AND B [employer] MEDICARE SUPP AESSI Care Teams Integration Engineer Relationship Specialty Start Date End Date Shivam Lombardo DO [address] [place] [phone] PCP - General Family Practice 05/13/24
--- OUTSIDE RECORDS SUMMARY | 2024-11-20 02:24 | XMS_ITS | Clinical Summary ---
Author Organization [facility] Address [address], [facility] [address] [place] [address] Phone Care Team Providers Care Mobility Developer Name Role Phone Shivam Lombardo DO Primary Care Provider + Trini Lazaro MD Unavailable Jordi Olguin MD Unavailable [phone] Allergies No known active allergies Medications citalopram [...] Description 11/19/2024 Telephone [facility] [address] [phone] Jordi Olguin MD 11/16/2024 1:45 PM CDT Clinical Support [facility] [address] [phone] Nurse, Cc Lynette 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); Pancytopenia (HCC); MDS (myelodysplastic syndrome), low grade (HCC) 11/16/2024 1:30 PM CDT Office Visit [facility] [address] [phone] Cristina Maldonado, HUMAN RESOURCES COORDINATOR, BOILER WATER TESTER Pancytopenia (HCC) (Primary Dx); MDS (myelodysplastic syndrome), low grade (HCC) 11/16/2024 Travel 11/12/2024 Telephone [facility] [address] [phone] Jordi Olguin MD 11/10/2024 Telephone [facility] [address] [phone] Jordi Olguin MD Canopy Call / questions 11/09/2024 1:30 PM CDT Clinical Support [facility] [address] [address] Nurse, Cc Ofizaiahon 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); Pancytopenia (HCC); MDS (myelodysplastic syndrome), low grade (HCC) 11/09/2024 Travel 11/02/2024 1:30 PM CDT Clinical Support [facility] [address] [phone] Nurse, Cc Ofallon MDS (myelodysplastic syndrome), low grade (HCC) (Primary Dx); Pancytopenia (HCC) 11/02/2024 Travel 11/02/2024 Telephone [facility] [address] [phone] Jordi Olguin MD Canopy Call / CBC and EPO 10/27/2024 Telephone [facility] [address] [phone] Jordi Olguin MD Canopy Call / GI referral 10/26/2024 1:15 PM LINE PAINTING MACHINE OPERATOR Clinical Support [facility] [address] [phone] Nurse, Cc Ofizaiahon MDS (myelodysplastic syndrome), low grade (HCC) (Primary Dx) 10/26/2024 1:00 PM LINE PAINTING MACHINE OPERATOR Office Visit [facility] [address] [phone] Jordi Olguin MD MDS (myelodysplastic syndrome), low grade (HCC) (Primary Dx) 10/26/2024 12:45 PM LINE PAINTING MACHINE OPERATOR Lab [facility] [address] [phone] Lab, Cc Ofizaiahon MDS (myelodysplastic syndrome), low grade (HCC) 10/26/2024 Telephone [facility] [address] [phone] Jordi Olguin MD 10/26/2024 Travel 10/19/2024 11:15 AM LINE PAINTING MACHINE OPERATOR Clinical Support [facility] [address] [phone] Nurse, Cc Ofallon MDS (myelodysplastic syndrome), low grade (HCC) (Primary Dx); Pancytopenia (HCC) 10/19/2024 11:00 AM LINE PAINTING MACHINE OPERATOR Lab [facility] [address] [phone] Lab, Cc Ofallon 10/19/2024 Travel 10/12/2024 9:00 AM LINE PAINTING MACHINE OPERATOR Clinical Support [facility] [address] [phone] Nurse, Cc Ofallon Iron deficiency (Primary Dx); Pancytopenia (HCC) 10/12/2024 8:00 AM LINE PAINTING MACHINE OPERATOR Procedure Visit [facility] [address] [phone] Jordi Olguin MD MDS (myelodysplastic syndrome), low grade (HCC) (Primary Dx) 10/12/2024 7:45 AM LINE PAINTING MACHINE OPERATOR Clinical Support [facility] [address] [phone] Nurse, Cc Ofallon MDS (myelodysplastic syndrome), low grade (HCC) (Primary Dx) 10/12/2024 Travel 10/05/2024 2:15 PM LINE PAINTING MACHINE OPERATOR Clinical Support [facility] [address] [phone] Nurse, Cc Ofallon Pancytopenia (HCC) (Primary Dx); MDS (myelodysplastic syndrome), low grade (HCC) 10/05/2024 1:45 PM LINE PAINTING MACHINE OPERATOR Office Visit [facility] [address] [phone] Cristina Maldonado APRN, CNP Pancytopenia (HCC) (Primary Dx); MDS (myelodysplastic syndrome), low grade (HCC) 10/05/2024 1:35 PM LINE PAINTING MACHINE OPERATOR Lab [facility] [address] [phone] Lab, Cc Ofallon Pancytopenia (HCC); MDS (myelodysplastic syndrome), low grade (HCC) 10/05/2024 Results Follow-Up [facility] [address] [phone] Renetta Urbina APRN, BOILER WATER TESTER 10/05/2024 Telephone [facility] [address] [phone] Jordi Olguin MD 10/05/2024 Travel 09/29/2024 Telephone [facility] [address] [phone] Jordi Olguni MD Canopy Call / Er visit 09/28/2024 11:00 AM LINE PAINTING MACHINE OPERATOR Lab [facility] [address] [address] Nurse, Cc Ofallon MDS (myelodysplastic syndrome), low grade (HCC) (Primary Dx); Pancytopenia (HCC) 09/28/2024 Telephone [facility] [address] [phone] Jordi Olguin MD 09/28/2024 Travel 09/28/2024 Telephone [facility] [address] [phone] Jordi Olguin MD Canopy Call / Weekly CBC and EPO 09/24/2024 1:00 PM LINE PAINTING MACHINE OPERATOR Office Visit [facility] [address] [address] Jordi Olguin MD MDS (myelodysplastic syndrome), low grade (HCC) (Primary Dx) 09/21/2024 2:15 PM LINE PAINTING MACHINE OPERATOR Clinical Support [facility] [address] [address] Nurse, Cc Ofallon MDS (myelodysplastic syndrome), low grade (HCC) (Primary Dx) 09/21/2024 2:00 PM LINE PAINTING MACHINE OPERATOR Office Visit [facility] [address] [phone] Renetta Urbina APRN, BOILER WATER TESTER MDS (myelodysplastic syndrome), low grade (HCC) (Primary Dx); Pancytopenia (HCC) 09/21/2024 1:45 PM LINE PAINTING MACHINE OPERATOR Lab [facility] [address] [phone] Lab, Cc Ofallon Pancytopenia (HCC); MDS (myelodysplastic syndrome), low grade (HCC) 09/21/2024 Telephone [facility] [address] [phone] Jordi Olguin MD 09/21/2024 Travel 09/07/2024 1:30 PM LINE PAINTING MACHINE OPERATOR Clinical Support [facility] [address] [phone] Nurse, Cc Ofallon MDS (myelodysplastic syndrome), low grade (HCC) (Primary Dx); Pancytopenia (HCC) 09/07/2024 Travel 08/24/2024 2:15 PM LINE PAINTING MACHINE OPERATOR Clinical Support [facility] [address] [phone] Nurse, Cc Ofallon MDS (myelodysplastic syndrome), low grade (HCC) (Primary Dx) 08/24/2024 2:00 PM LINE PAINTING MACHINE OPERATOR Office Visit [facility] [address] [phone] Renetta Urbina APRN, BOILER WATER TESTER Pancytopenia (HCC) (Primary Dx); MDS (myelodysplastic syndrome), low grade (HCC) 08/24/2024 1:45 PM LINE PAINTING MACHINE OPERATOR Lab [facility] [address] [phone] Lab, Cc Ofallon Pancytopenia (HCC); MDS (myelodysplastic [...] CDT Clinical Support [facility] [address] [phone] Nurse, Мария Ojeda [place] 11/30/2024 1:00 PM CDT Clinical Support [facility] [address] [phone] [facility] 12/07/2024 1:15 PM CDT Clinical Support [facility] [address] [phone] Nurse, Мария [facility] 12/07/2024 1:30 PM CDT Office Visit [facility] [address] [phone] Jordi Olguin MD [address] [place] [address] Health Maintenance Due Date Last [...] BINDING CAPACITY [place] Routine 10/26/2024 1:16 PM LINE PAINTING MACHINE OPERATOR MDS (myelodysplastic syndrome), low grade (HCC) FERRITIN Routine 10/26/2024 1:16 PM LINE PAINTING MACHINE OPERATOR MDS (myelodysplastic syndrome), low grade (HCC) COMPLETE BLOOD COUNT (CBC) WITH DIFF Routine 10/26/2024 1:16 PM LINE PAINTING MACHINE OPERATOR MDS (myelodysplastic syndrome), low grade (HCC) CBC WITH AUTO DIFF OH Routine 10/19/2024 11:11 AM LINE PAINTING MACHINE OPERATOR MDS (myelodysplastic syndrome), low grade (HCC) CBC WITH AUTO DIFF OH Routine 10/12/2024 8:44 AM LINE PAINTING MACHINE OPERATOR Iron deficiency CCS-ACUTE LEUKEMIA PNL (NON-NY) OH B504-2 Routine 10/12/2024 8:10 AM LINE PAINTING MACHINE OPERATOR CHROMOSOME ANALYSIS OH 5250-6 Routine 10/12/2024 8:10 AM LINE PAINTING MACHINE OPERATOR MDS (myelodysplastic syndrome), low grade (HCC) INTEGRATED HEMATOPATHOLOGY SUMMARY REPORT HL7 OH A023-4 Routine 10/12/2024 8:10 AM LINE PAINTING MACHINE OPERATOR ONKOSIGHT ADVANCED NGS MYELOID PANEL Routine 10/12/2024 8:10 AM LINE PAINTING MACHINE OPERATOR TWO (2) ANTIBODY OH 5137-5 Routine 10/12/2024 8:10 AM LINE PAINTING MACHINE OPERATOR BONE MARROW MORPHOLOGY OH 5199-5 Routine 10/12/2024 8:10 AM LINE PAINTING MACHINE OPERATOR MDS (myelodysplastic syndrome), low grade (HCC) COMPLETE BLOOD COUNT (CBC) WITH DIFF Routine 10/05/2024 1:29 PM LINE PAINTING MACHINE OPERATOR Pancytopenia (HCC) MDS (myelodysplastic syndrome), low grade (HCC) CMP (COMPREHENSIVE METABOLIC PANEL) Routine 10/05/2024 1:29 PM LINE PAINTING MACHINE OPERATOR Pancytopenia (HCC) MDS (myelodysplastic syndrome), low grade (HCC) IRON W/ IRON BINDING CAPACITY OH Routine 10/05/2024 1:29 PM LINE PAINTING MACHINE OPERATOR Pancytopenia (HCC) MDS (myelodysplastic syndrome), low grade (HCC) FERRITIN Routine 10/05/2024 1:29 PM LINE PAINTING MACHINE OPERATOR Pancytopenia (HCC) MDS (myelodysplastic syndrome), low grade (HCC) COMPLETE BLOOD COUNT (CBC) WITH DIFF Routine 09/28/2024 11:02 AM LINE PAINTING MACHINE OPERATOR Pancytopenia (HCC) MDS (myelodysplastic syndrome), low grade (HCC) CMP (COMPREHENSIVE METABOLIC PANEL) Routine 09/21/2024 1:55 PM LINE PAINTING MACHINE OPERATOR Pancytopenia (HCC) MDS (myelodysplastic syndrome), low grade (HCC) COMPLETE BLOOD COUNT (CBC) WITH DIFF Routine 09/21/2024 1:55 PM LINE PAINTING MACHINE OPERATOR Pancytopenia (HCC) MDS (myelodysplastic syndrome), low grade (HCC) IRON W/ IRON BINDING CAPACITY OH Routine 09/21/2024 1:55 PM LINE PAINTING MACHINE OPERATOR Pancytopenia (HCC) MDS (myelodysplastic syndrome), low grade (HCC) FERRITIN Routine 09/21/2024 1:55 PM LINE PAINTING MACHINE OPERATOR Pancytopenia (HCC) MDS (myelodysplastic syndrome), low grade (HCC) CBC WITH AUTO DIFF OH Routine 09/07/2024 1:30 PM LINE PAINTING MACHINE OPERATOR MDS (myelodysplastic syndrome), low grade (HCC) COMPLETE BLOOD COUNT (CBC) WITH DIFF Routine 08/24/2024 2:05 PM LINE PAINTING MACHINE OPERATOR Pancytopenia (HCC) MDS (myelodysplastic syndrome), low grade (HCC) IRON W/ IRON BINDING CAPACITY OH Routine 08/24/2024 2:05 PM LINE PAINTING MACHINE OPERATOR Pancytopenia (HCC) MDS (myelodysplastic syndrome), low grade (HCC) RETICULOCYTE COUNT (RETIC) Routine 08/24/2024 2:05 PM LINE PAINTING MACHINE OPERATOR Pancytopenia (HCC) MDS (myelodysplastic syndrome), low grade (HCC) FERRITIN Routine 08/24/2024 2:05 PM LINE PAINTING MACHINE OPERATOR Pancytopenia (HCC) MDS (myelodysplastic syndrome), low grade (HCC) from Last 3 Months Results * (ABNORMAL) CBC WITH AUTO DIFF OH (11/16/2024 1:21 PM CDT) Only the most recent of6 resultswithin the time period is included. WBC 5.5 4.0 - 10.0 10*3/uL CANCER SOLID WASTE COLLECTION WORKER [facility] HGB 7.3(L) 11.2 - 15.7 g/dL CANCER SOLID W[employer]E COLLECTION WORKER [facility] HCT 24.3(L) 34.1 - 44.9 % CANCER SOLID WASTE COLLECTION WORKER [facility] PLT 156(L) 163 - 369 10*3/uL CANCER [employer]ID W[employer]E COLLECTION WORKER [facility] MPV 11.3 9.4 - 12.4 fL CANCER SOLID WASTE COLLECTION WORKER [facility] RBC 2.54(L) 3.93 - 5.22 10*6/uL CANCER SOLID WASTE COLLECTION WORKER [facility] MCV 96(H) 79 - 95 fL CANCER SOLID WASTE COLLECTION WORKER [facility] MCH 28.7 25.6 - 32.2 pg CANCER SOLID WASTE COLLECTION WORKER [facility] MCHC 30.0(L) 32.2 - 36.5 g/dL CANCER SOLID WASTE COLLECTION WORKER [facility] RDW 16.5(H) 11.6 - 14.4 % CANCER SOLID WASTE COLLECTION WORKER [facility] Neutrophils % 58.8 36.0 - 66.0 % CANCER SOLID WASTE COLLECTION WORKER [facility] Lymphocytes % 28.3 19.0 - 40.0 % CANCER SOLID WASTE COLLECTION WORKER [facility] Monocytes % 8.4 4.1 - 12.1 % CANCER SOLID WASTE COLLECTION WORKER [facility] Eosinophils % 3.9(H) 0.0 - 3.5 % CANCER SOLID WASTE COLLECTION WORKER [facility] Basophils % 0.2 0.0 - 1.0 % CANCER SOLID WASTE COLLECTION WORKER [facility] Absolute Neutrophils 3.2 1.4 - 6.6 10*3/uL CANCER SOLID WASTE COLLECTION WORKER [facility] Absolute Lymphocytes 1.5 0.8 - 4.0 10*3/uL CANCER SOLID WASTE COLLECTION WORKER [facility] Absolute Monocytes 0.5 0.2 - 1.2 10*3/uL CANCER SOLID WASTE COLLECTION WORKER [facility] Absolute Eosinophils 0.2 0.0 - 0.4 10*3/uL CANCER SOLID WASTE COLLECTION WORKER [facility] Absolute Basophils 0.0 0.0 - 0.1 10*3/uL CANCER SOLID WASTE COLLECTION WORKER [facility] 11/16/2024 1:21 PM CDT Renetta Urbina HUMAN RESOURCES COORDINATOR, BOILER WATER TESTER LAB SEND OUTS Final Result [facility] [employer]E COLLECTION WORKER [facility] [address] [place] [place] [address], * IRON W/ IRON BINDING CAPACITY [place] (10/26/2024 1:16 PM LINE PAINTING MACHINE OPERATOR) Only the most recent of4 resultswithin the time period is included. IRON 54 50 - 212 ug/dL CANCER SOLID WASTE COLLECTION WORKER [facility] UIBC 208 155 - 355 ug/dL CANCER SOLID WASTE COLLECTION WORKER [facility] TIBC 262 261 - 478 ug/dl [facility] % Saturation 21 20 - 50 % CANCER SOLID WASTE COLLECTION WORKER [facility] 10/26/2024 1:16 PM LINE PAINTING MACHINE OPERATOR Narrative [facility] - 10/26/2024 1:54 PM LINE PAINTING MACHINE OPERATOR Release to patient->Immediate Jordi Olguin MD LAB SEND OUTS Final Result [facility] [address] [place] [address], [place] [phone] * FERRITIN (10/26/2024 1:16 PM LINE PAINTING MACHINE OPERATOR) Only the most recent of4 resultswithin the time period is included. Ferritin 118 11 - 307 ng/mL CANCER [employer]ID W[employer]E COLLECTION WORKER [facility] Blood 10/26/2024 1:16 PM LINE PAINTING MACHINE OPERATOR Narrative [facility] [employer] COLLECTION WORK[employer] [facility] - 10/27/2024 2:09 PM LINE PAINTING MACHINE OPERATOR Release to patient->Immediate us Jordi Olguin MD CHEMISTRY ORDERABLES Final R esult CAN[employer]ER [employer]E COLLECTION WORKER [facility] [place] [address], [place] [phone] * (ABNORMAL) COMPLETE BLOOD COUNT (CBC) WITH DIFF (10/26/2024 1:16 PM LINE PAINTING MACHINE OPERATOR) Only the most recent of5 resultswithin the time period is included. WBC 2.3(L) 4.0 - 10.0 10*3/uL CANCER [employer] COLLECTION WORKER [facility] HGB 6.6(LL) 11.2 - 15.7 g/dL CANC[employer] W[employer]E COLLECTION WORKER [facility] Comment: Critical Result reported to Ghazal King on 10/26/2024 13:28 by Nathanael Hansen. Results were read back to caller. HCT 22.3(L) 34.1 - 44.9 % CANC[employer]E COLLECTION WORKER [facility] PLT 109(L) 163 - 369 10*3/uL CANC[employer] SOL[employer] W[employer]E COLLECTION WORKER [facility] MPV 11.3 9.4 - 12.4 fL CANCER [employer]E COLLECTION WORKER [facility] RBC 2.16(L) 3.93 - 5.22 10*6/uL CANCER [employer] W[employer] COLLECTION WORKER [facility] MCV 103(H) 79 - 95 fL CAN[facility] SOL[employer] W[employer]E COLLECTION WORKER [facility] MCH 30.6 25.6 - 32.2 pg CAN[facility] [employer]E COLLECTION WORKER [facility] MCHC 29.6(L) 32.2 - 36.5 g/dL CAN[facility] SOL[employer] W[employer]E COLLECTION WORKER [facility] RDW 20.7(H) 11.6 - 14.4 % CANCER SOLID W[employer]E COLLECTION WORKER [facility] Absolute Neutrophil Count 1,548 cells/uL [facility] Absolute Seg Count 1,548 1,440 - 6,600 cells/uL [facility] Absolute Lymph Count 624(L) 760 - 4,000 cells/uL CANCER SOLID WASTE COLLECTION WORKER [facility] Absolute Uinta Count 69(L) 160 - 1,200 cells/uL [facility] Absolute Eos Count 69 0 - 300 cells/uL [facility] Segmented Neutrophils 67(H) 36 - 66 % CANCER SOLID WASTE COLLECTION WORKER [facility] Lymphocytes 27 19 - 40 % [facility] C ENTER [facility] Monocytes 3(L) 4 - 12 % [facility] CODY TER [facility] Eosinophils 3 0 - 3 % [facility] WBC Estimate Low CANCER SOLID WASTE COLLECTION WORKER [facility] Platelet Estimate Low CANCER SOLID WASTE COLLECTION WORKER [facility] RBC Morphology Abnormal CANCE R SOLID WASTE COLLECTION WORKER [facility] Macrocytosis 1+ CANCER SOLID WASTE COLLECTION WORKER [facility] Anisocytosis 2+ CANCER SOLID WASTE COLLECTION WORKER [facility] Blood 10/26/2024 1:16 PM LINE PAINTING MACHINE OPERATOR Narrative CANC[employer] W[employer]E COLLECTION WORKER [facility] - 10/27/2024 11:46 AM LINE PAINTING MACHINE OPERATOR Release to patient->Immediate us Jordi Olguin MD HEMATOLOGY ORDERABLES Final Result CAN[employer] COLLECTION WORKER [facility] [place] [address], * (ABNORMAL) Polybiotics ADVANCED NGS MYELOID PANEL (10/12/2024 8:10 AM LINE PAINTING MACHINE OPERATOR) Pathologist [facility] MYELOID PAN[facility], [place] TL95-4 ABNORMAL (A) CANCER SOLID WASTE COLLECTION WORKER [facility] Comment: [employer] Advanced NGS Myeloid Panel Final Report - RESULT SUMMARY: ABNORMAL - DETECTED GENOMIC ALTERATIONS: - Tier II: Variants of Potential Clinical Significance TET2 p.Sst790Sdg DNMT3A p.? Tier III: Variants of Unknown Clinical Significance DNMT3A p.Upu178Xth - TUMOR TYPE: Myelodysplastic Neoplasm - CLINICAL [...] of myelodysplastic neoplasm with low blasts (MDS-LB, #[id number]). - PERTINENT NEGATIVE RESULTS: The following genes [...] AND PROGNOSTIC ASSOCIATIONS, O SEE BELOW [facility] Comment: PROGNOSTIC ASSOCIATIONS: Gene: DNMT3A Alteration: p.? - Associated with Increased Risk of Leukemic Transformation and Decreased Overall Survival Disease Association: Myelodysplastic Syndromes INTERPRETATION SUMMARY, [place] 644871-4 SEE BELOW(A) [facility] Comment: INTERPRETATION SUMMARY: - It should be noted that this patient has had one or more additional NGS studies. The most recent study showed the following mutation(s): TET2 p.Mjw256Gyw (33%) and DNMT3A p.? (36%). Please see the previous [employer] N[employer] Myeloid Report, Collection Date: May 11, 2024, Specimen ID: [id number]. Presence of 2 pathogenic mutations each exhibiting >10% variant allele frequency has been shown in some studies to be positively predictive for involvement by myelodysplasia (NCCN Guidelines, Myelodysplastic Syndromes, Version 2.2024; 57992725). In the absence of overt morphologic dysplasia or other disease-defining ancillary data, clonal cytopenias of undetermined significance (CCUS) or clonal hematopoiesis of indeterminate potential (CHIP) may also be considered. Correlation with morphologic features and other clinical and laboratory parameters will be required to further assess the significance of the present study results.ar. A mutation in TET2 (p.Spn534Pse) was detected in this patients sample. Mutations [...] myelodysplasia (NCCN Guidelines, Myelodysplastic Syndromes, Version 2.2025; 02289516; 31580590; 21190003). TET2 mutations may be predictive of improved responses to hypomethylating agents (e.g. Azacytidine), according to some studies (27651056; 59824995; (NCCN Guidelines, Myelodysplastic Syndromes, Version 2.2025)). A mutation in DNMT3A (p.?) was detected in this patients sample. DNMT3A mutations are frequently seen in myelodysplastic syndromes (MDS) and are also seen in other myeloid disorders. Of note, DNMT3A mutations may also be seen in the setting of age related clonal hematopoiesis of indeterminate potential (CHIP) (NCCN Guidelines, Myelodysplastic Syndromes, Version 2.2025; 51456274; 25611215; 87353939). In cases of confirmed MDS, DNMT3A mutations may be associated with inferior clinical outcomes including risk of transformation to acute myeloid leukemia (AML) and inferior overall prognosis (84394504; NCCN Guidelines, Myelodysplastic Syndromes, Version 2.2025). An unclear variant in DNMT3A (p.Jpb346Yec) was detected in this patients sample. This variant has been reported in a limited number of tumor samples (COSMIC) and has not been reported as a population variant in publicly available databases (gnomAD). Therefore, due to the paucity of functional and clinical evidence, its significance is currently unclear. Clinical and pathologic correlation is required to interpret these findings. 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 The introduction of a stop codon at this position results in a truncated form of the protein. This mutation occurs N-terminal to the catalytic core of the protein ([id number]). TET2 nonsense mutations in the N-terminal region leading to a truncated protein with a loss of a TET2 catalytic domain have been described across a range of hematological malignancies (22712316; 38591355). The TET2 gene (Tet methylcytosine dioxygenase 2) is located on chromosome 4q24. The gene encodes an epigenetic modifier involved in myelopoiesis. TET2 is frequently deleted or mutated in myeloid malignancies, including acute myeloid leukemia (AML), myelodysplastic syndrome (MDS), myeloproliferative neoplasms (MPN), and other tumor types ([id number]; [id number]). Most TET2 variants are heterozygous nonsense, frameshift and missense variants that occur throughout the gene and result in loss of function, with homozygous and hemizygous variants also reported ([id number]; [id number]). The prognostic impact of somatic TET2 variants remains under investigation, with some studies showing association with worse prognosis in some AML subgroups (e.g. intermediate-risk or karyotypically normal AML cases), while other studies showing no impact on survival in AML and other myeloid neoplasms ([id number]; [id number]; 89044946; [id number]). - Genomic Alteration: DNMT3A p.? c.1667+1G>A Allele [...] and frameshift variations occurring throughout the gene ([id number]; 21052545). DNMT3A variations have been reported in myelodysplastic syndrome (MDS), acute myeloid leukemia (AML) and myeloproliferative neoplasms (MPN), associated with poor prognosis in subsets of MDS and AML, dependent on the clinical and molecular context ([id number]; 18614789; 05443217). - Genomic Alteration: DNMT3A p.Nek941Etl c.929T>C Allele frequency: 3% allele frequency Exon: 8 Transcript : [id number] Interpretation: p.Gaw295Lwe represents a missense variant in exon 8 [...] and frameshift variations occurring throughout the gene (89927530; 63823592). DNMT3A variations have been reported in myelodysplastic syndrome (MDS), acute myeloid leukemia (AML) and myeloproliferative neoplasms (MPN), associated with poor prognosis in subsets of MDS and AML, dependent on the clinical and molecular context ([id number]; 42557729; 62389250). TECHNICAL SUMMARY, [place] 176289-6 SEE BELOW CANCER SOLID WASTE COLLECTION WORKER [facility] Comment: TECHNICAL SUMMARY: Specimen Source: Bone Marrow - Gene: TET2 Alteration: p.Ahs213Hbm Variant Category: Disease Associated Chr: 4 Pos: [id number] Ref: C Alt: T Coverage: 362 Allele Freq: 32.04 cDNA change: c.1441C>T Exon: 3 ClinVar ID: - Gene: DNMT3A Alteration: p.? Variant Category: Disease Associated Chr: 2 Pos: [id number] Ref: C Alt: T Coverage: 1380 Allele Freq: 36.16 cDNA change: c.1667+1G>A Exon: 14 ClinVar ID: - Gene: DNMT3A Alteration: p.Mco601Tyx Variant Category: Unclear Variant Chr: 2 Pos: [id number] Ref: A Alt: G Coverage: 465 Allele Freq: 3.01 cDNA change: c.929T>C Exon: 8 ClinVar ID: [place], [place] [id number] SEE BELOW CANCER SOLID WASTE COLLECTION WORKER OF [facility] Comment: METHODS: Tissue macrodissection and DNA isolation [...] (YENNI), used after sequencing on an Illumina Deehubs instrument ([place], [place]) with paired end, 151 base pair reads to collapse PCR duplicates and enable accurate counting of variant allelic frequencies. A minimum number of 100 unique reads (after removal of PCR duplicates) to detect a mutation is required. An automated process that takes into account statistical confidence of base calling and alignment and mapping quality identifies variants ([employer] Analysis Software version 6.2.7, Released 20 Jan 2020). Following mapping of the read data to the human genome (reference build GRCh37/hg19), single nucleotide variants (SNVs), and insertion deletion events (Indels) with an allele frequency (AF) greater than 2% are detected utilizing GOGETMi / ?.?? Analysis bioinformatic analytical pipeline with the exception [...] capillary electrophoresis using an LISA Genetic Analyzer ([place], [place], [place]) and data was analyzed with Motiga. The FLT3-ITD mutation status is determined by [...] Recommendation of the Association for Molecular Pathology, [place] Society of Clinical Oncology, and College of [place] Pathologists. The Journal of molecular diagnostics: JMD. 2017 Aug;19(1):4-23. doi: 10.1016/j.jmoldx.2016.10.002. PubMed Central PMCID: UEA9399575. PubMed PMID: (82244621)). OnkoSightAdvanced was developed and its performance characteristics were determined by [employer] a division of [employer]. This test has not been cleared or [...] future scientific and medical findings and correlations. [employer]. makes no representation or warranty of any kind regarding the accuracy of information provided or contained in these manuscripts, references or other sources of information. If any of the information provided by or contained in the referenced material is later deemed to be inaccurate, this may impact the accuracy of this report and interpretation of the findings. [employer]. is not obligated to notify you of [...] This assay has been approved by the [facility] based on initial validation; orthogonal testing for full validation is currently ongoing. Please contact the laboratory for more information if update is requested. [place], [place] 727736-3 SEE BELOW CANCER SOLID WASTE COLLECTION WORKER OF [facility] Comment: REFERENCES: 1. Jennifer MM, Lamar M, Shirley EJ, Kendrick S, Deion NI, Maximino S, Donato AM, Cristina CL, Aime DJ, Charles A, Jyoti MCGOWAN. Standards and Guidelines for the Interpretation and Reporting of Sequence Variants in Cancer: A Joint Consensus Recommendation of the Association for Molecular Pathology, [place] Society of Clinical Oncology, and College of [place] Pathologists. The Journal of molecular diagnostics : JMD. 2017 Aug;19(1):4-23. doi: 10.1016/j.jmoldx.2016.10.002. PubMed PMID: 11840790. PubMed Central PMCID: FDO6189823. 2. Genome Aggregation Database (gnomAD), [place], [place] (URL: [email or web address]://gnomad.[employer]).org) [September,] 3. Catalogue of Somatic Mutations in [...] clinical oncology : official journal of the [place] Society of Clinical Oncology. 2011Dec 13;30(12):1350-7. Epub 2011Nov 11. doi: 10.1200/JCO.2010.39.2886. PubMed PMID: 69275275. 5. Magi SM, Suzie RP, Kwaku M, Kned R, Augustus MG, Kitty M, Ar-Gordo E, van Carloz P, van Parmjit AG, Rebecca RA, Rachel EJ, Verharsha GE, Verbandrew E, Patricia A, Mary P, de Fabienne T, van daniela Stephenie BA, Ky BAKER. Acquired mutations in TET2 are common in myelodysplastic syndromes. Nature genetics. 2009 Feb;41(7):838-42. Epub 2008January 23. doi: 10.1038/ng.391. PubMed PMID: 10569028. 6. Kimberlyn Robles, Etta KH, Thomas S, [...] clinical oncology : official journal of the [place] Society of Clinical Oncology. 2011Oct 24;30(7):742-50. Epub 2011Sep 24. doi: 10.1200/JCO.2010.39.2092. PubMed PMID: 44773670. PubMed Central PMCID: QKK8751796. 7. Humphrey ROOPA, Leeann M, Sam ME, [...] genetic profiling in acute myeloid leukemia. The [place] journal of medicine. 2011Nov 14;366(12):1079-89. Epub 2011Nov 06. doi: 10.1056/XRZDqf8578968. PubMed PMID: 65340524. PubMed Central PMCID: ROD0689147. 8. Salima F, Krystina S, Jenise Alyce V, Parveen C, Willow S, Michelle, Cl O, Collette Santiago ROOPA, Corky F, Sharmila Green, Addie Y, Plo I, Dar FJ, Feliberto C, Perez N, Mary C, Zamzam SP, Dessen P, Mayelin J, GeronimoF, Mahnaz M, Faith W, Doug OA. Mutation in TET2 in myeloid cancers. The [place] journal of medicine. 2008January 20;360(22):2289-301. doi: 10.1056/VBZRmq3128404. PubMed PMID: 67611065. 9. Isrrael Muniz, Nabil KE, Yuan DOBSON, Doni Gunderson, Ren DP, Kim N, Gianni A, Nelda H, Luz LIGHT, Ayan D, Ayush-Iwona G, Anamaria BL. Validation of a prognostic model and the impact of mutations in patients with lower-risk myelodysplastic syndromes. Journal of clinical oncology : official journal of the [place] Society of Clinical Oncology. 2011May 15;30(27):3376-82. Epub 2011Mar 31. doi: 10.1200/JCO.2010.40.7379. PubMed PMID: 03897131. PubMed Central PMCID: BUA6392627. 10. Naksmith H, Kunimoto H. TET2 as an epigenetic master regulator for normal and malignant hematopoiesis. Cancer science. 2014 Apr;105(9):1093-9. Epub 2013Apr 28. doi: 10.1111/shruti.92529. PubMed PMID: 42421043. PubMed Central PMCID: GSD8682600. 11. Jj LOUIS, Doni Gunderson, Humphrey ROOPA, Luz LIGHT. The role of mutations in epigenetic regulators in myeloid malignancies. Nature reviews. Cancer. 2012 Apr;12(9):599-612. Epub 2011Apr 11. doi: 10.1038/wdt1255. PubMed PMID: 85799151. 12. Doni Reyna Levine RL, Valentine I. TET family proteins and their role in stem cell differentiation and transformation. Cell stem cell. 2011 Apr 27;9(3):193-204. doi: 10.1016/j.stem.2011.08.007. PubMed PMID: 41519314. PubMed Central PMCID: KED9555341. 13. Lesley Iglesias, Austen Rm, Lilli F, Allen M, Tita G, Rio B, Brad J, Esther M, Doug LAWRENCE, Stephen A. TET2 mutations in cytogenetically normal acute myeloid leukemia: clinical implications and evolutionary patterns. Genes, chromosomes & cancer. 2014 May;53(10):824-32. Epub 2013Jan 28. doi: 10.1002/gcc.75486. PubMed PMID: 16492699. 14. Jennifer KK, Bijan LF, Tyler Y, Alonso J, Garibay Z, Lani SJ. DNA methyltransferases in hematologic malignancies. Seminars in hematology. 2013 Aug;50(1):48-60. doi: 10.1053/j.seminhematol.005. PubMed PMID: 64111609. 15. Mecca GIBBONS, River Nobles, Mahesh AADMS, Nadir PEREZ, Rory T, Blaine DE, Jacinta [...] DNMT3A mutations in acute myeloid leukemia. The [place] journal of medicine. 2009Aug 10;363(25):2424-33. Epub 2009Jul 05. doi: 10.1056/FCGQbz8390466. PubMed PMID: 40647349. PubMed Central PMCID: VSC0445807. 16. Tabitha M, Jenise Hall MG, Deepti L. The genetic basis of myelodysplasia and its clinical relevance. Blood. 2013 Aug 06;122(25):4021-34. Epub 2012Jun 11. doi: 10.1182/dxjtu-1473-19-169486. PubMed PMID: 44362221. PubMed Central PMCID: KOS3602062. 17. Raul Nobles, Jennifer Alatorre, Bhavik J, Matthew Q, Katina W, Ramu M, Loreto NyG, Becca J, Crabtree P, Gupta Y. Crystal structure of TET2-DNA complex: insight into TET-mediated 5mC oxidation. Cell. 2012Aug 13;155(7):1545-55. Epub 2012Jul 30. doi: 10.1016/j.cell.2013.11.020. PubMed PMID: 12368739. 18. Etta PATRICIO, Koki Catherine, Gerardo PEREZ, [...] clinical oncology : official journal of the [place] Society of Clinical Oncology. 2010Nov 24;29(10):1373-81. Epub 2010Oct 17. doi: 10.1200/JCO.2009.32.7742. PubMed PMID: 55822739. PubMed Central PMCID: ZNI1119696. 19. Matheus S, Maite P, Narciso J, Keshav A, Payam PV, Kaila BG, Mckay RC, Lian CH, Santy N, Rene A, Hong JM, Molvangie V, Kaci FC, Dexter MJ, Geremias B, Segun L, Geraldine LUA, Martha C, Unique G, Condon A, Banahan BF, Nikos S, Katamanuelsan S, Hector HM, Elsie FL, Reinier M, Yoly J, Richard C, Jihan L, Noemí G, Oscar VargasG, Ayan D, Rosa D, Anamaria BL. Age-related clonal hematopoiesis associated with adverse outcomes. The [place] journal of medicine. 2013Aug 19;371(26):2488-98. Epub 2013Jul 21. doi: 10.1056/HONIot5394265. PubMed PMID: 89552318. PubMed Central PMCID: JFV3053499. 20. Norberto G, Jessy AK, Salvatoreaker RE, Georgi J, Allyson SA, Svetlana SF, Emelinat K, Damon E, Sarahi BM, Fromrosa M, Carrollton SM, Svhermesson O, Felicen M, Dulce Maria M, Tracey S, Nikos SB, Nettie JL, Malorie ES, Bill PF, Diana P, Trav H, Saúl CM, Wiliam SA. Clonal hematopoiesis and blood-cancer risk inferred from blood DNA sequence. The [place] journal of medicine. 2013Aug 19;371(26):2477-87. Epub 2013Jul 21. doi: 10.1056/HMEIps8028448. PubMed PMID: 06512579. PubMed Central PMCID: QTS7023713. 21. Rufino Catherine, Guanako D, Nora S, Favian R, Ellis CRAWFORD. Implications of Mutation Profiling in Myeloid Malignancies-PART 2: Myeloproliferative Neoplasms and Other Myeloid Malignancies. Oncology ([place], [place] 2018 January 07;32(5):e45-e51. Epub 2017January 07. PubMed PMID: 03503205. 22. NCCN Guidelines, Myelodysplastic Syndromes, Version 2.202 23. Mahesh ADAMS, River L, Tyler D, Laron J, Sai M, Nadir M, Fernanda R, Prashant H, Erma J, O'Alana M, Jacinta C, Anant J, Danisha P, Jose JF, Alejandro ER, Oscar RK, Mecca GIBBONS, Janna TA. Recurrent DNMT3A mutations in patients with myelodysplastic syndromes. Leukemia. 2011 Feb;25(7):1153-8. Epub 2010Nov 10. doi: 10.1038/ross.2010.44. PubMed PMID: 32020528. PubMed Central PMCID: FQB5661270. REPORT GARCIA MARA [id number] SEE BELOW CANCER SOLID WASTE COLLECTION WORKER [facility] Comment: Hanna Hall M.D., Nutrition Teacher Electronically signed by Brice Barber is a division of [employer] [facility] [place] [address] Created SatOct 22 16:34:03 2024 10/12/2024 8:10 AM LINE PAINTING MACHINE OPERATOR Narrative CANCER SOLID WASTE COLLECTION WORKER [facility] - 10/22/2024 4:45 PM LINE PAINTING MACHINE OPERATOR Testing performed at: [facility]. [facility] [place] [address], Nutrition Teacher: Dr. Parveen Hoffman M.D.; [facility] Accn#:[id number] Jordi Olguin MD LAB SEND OUTS Final Result Performing Organization Address City/State/[facility] Co de Phone Number CANCER SOLID WASTE COLLECTION WORKER [facility] [place] [address], * (ABNORMAL) INTEGRATED HEMATOPATHOLOGY SUMMARY REPORT HL7 [place] A023-4 (10/12/2024 8:10 AM LINE PAINTING MACHINE OPERATOR) COMP. BONE MARROW REPORT Positive (A) CANCER SOLID WASTE COLLECTION WORKER [facility] Clinical Information D46.Z, D61.818 CANCER SOLID WASTE COLLECTION WORKER [facility] Specimen Comment See Note CAN CER SOLID WASTE COLLECTION WORKER [facility] Comment: HEPARIN, EDTA, CORE, ASPIRATE, SLIDES DX: PANCYTOPENIA, MDSDIAGNOSIS UNDER CONSIDERATION MDS;PAANCYTOPENIA Diagnosis See Note CANCER CODY TER SPECIALISTS [facility] Comment: BONE MARROW; ILIAC CREST; [...] mutations; See comments. Diagnostic Comments See Note 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 The translocation t(11;22) identified in this study is a common recurrent constitutional translocation and has been found in a large number of families as a constitutional chromosomal abnormality (see cytogenetics report). Correlation with other relevant clinical and laboratory data is suggested. Morphology See Note(A) [facility] Comment: BONE MARROW; ILIAC CREST; CORE BIOPSY, [...] CYTOMETRY ANALYSIS FOR MYELOID/LYMPHOID OH See Note [facility] Comment: Bone marrow aspirate: - Flow cytometric [...] %. IHC:Myeloid Disorder Immunistochemical Analysis See Note [facility] SOLID WASTE [facility] Comment:No increase in CD34+ blasts or CD117+ immature precursors. Cytogenetics See Note(A) 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 They may not be cleared or approved by the U.S. Food and Drug Administration. The FDA has determined that such clearance or approval is not necessary. These results may be used for clinical, investigational or for research purposes, and should be interpreted with other relevant clinicopathologic data. Electronic Signature See Note [facility] Comment: Deanna Carlson M.D. Hematopathologist, ex. [phone] This report was electronically signed. 10/12/2024 8:10 AM LINE PAINTING MACHINE OPERATOR Narrative [facility] - 10/26/2024 8:17 PM LINE PAINTING MACHINE OPERATOR Testing performed at: [facility]. [address] [place] [address] [place] [address], Nutrition Teacher: Dr. Parveen Hoffman M.D.; [facility] Accn#:[id number] us Jodri Olguin MD LAB SEND OUTS Final Result CANCER SOLID WASTE [facility]LECTION [facility] [address] [place] [address], * TWO (2) ANTIBODY [place] 5137-5 (10/12/2024 8:10 AM LINE PAINTING MACHINE OPERATOR) Two (2) Antibody Non-neoplasti c [facility] Comment: INTERPRETATION No increase in CD34+ blasts or CD117+ immature precursors. COMMENT A positive control for each antibody has been reviewed and accepted. Please refer to [facility] bone marrow morphology report. Clinical Information D46.Z, D61.818 [facility] Specimen Comment See Note [facility] Comment: HEPARIN, EDTA, CORE, ASPIRATE, SLIDES DX: PANCYTOPENIA, MDSDIAGNOSIS UNDER CONSIDERATION MDS;PAANCYTOPENIA CD34 Rare blasts CANCER C ENTER [facility] Comment: Clone: QBEnd 10 Endothelial and stem cells, GIST, Blasts CD117 Rare immature precursors [facility] Comment: Clone: YR145 c-kit ligand, myeloid and mast cell marker, GIST Disclaimer See Note CANCER CE NTER [facility] Comment: These tests were developed and their performance characteristics determined by [employer]. They may not be cleared or approved [...] perform these tests. Associated Tests See Note [facility] Comment: Flow Cytometry Analysis for Myeloid/Lymphoid Disorders and Acute Leukemia released on: 10/14/2024 Bone Marrow Morphology released on: 10/14/2024 Estefania(KUNAL) Advanced NGS Myeloid Report Cytogenetics Electronic Signature See Note [facility] Comment: Deanna Carlson M.D. Pathologist, ex. [phone] This report was electronically signed. 10/12/2024 8:10 AM LINE PAINTING MACHINE OPERATOR Narrative [facility] - 10/15/2024 9:19 AM LINE PAINTING MACHINE OPERATOR Testing performed at: [facility]. [address] [place] [address] [place] [address], Nutrition Teacher: Dr. Parveen Hoffman M.D.; [facility] Accn#:[id number] Jordi Olguin MD LAB SEND OUTS Final Result CANCER SOLID WASTE COLLECTION WORKER [facility] [place] [address], * CCS-ACUTE LEUKEMIA PNL (NON[place]) [place] B504-2 (10/12/2024 8:10 AM LINE PAINTING MACHINE OPERATOR) ACUTE LEUKEMIA FLOW PC Negative CANCER SOLID WASTE COLLECTION WORKER [facility] Comment: INTERPRETATION Bone marrow aspirate: [...] T-LGL cells comprise %. DISCLAIMER: Antibodies Analyzed: CD19,CD20,CD22,CD10,CD11c,CD23,FMC7,[place],Lambda,CD2,CD3,CD4,CD5, CD7,CD8,CD56,CD57,CD11b,CD13,CD14,CD16,CD33,CD64,CD34,CD38,CD117, HLA-DR,CD45 - The technical component of Flow Cytometry was performed at [facility] [place] [address]. These tests were developed and their performance characteristics were determined by [facility]. They may not be cleared or approved by the U.S. Food and Drug Administration. The FDA has determined that such clearance or approval is not necessary. These results may be used for clinical, investigational or for research purposes, and should be interpreted with other relevant clinicopathologic data. ASSOCIATED TESTS: Bone Marrow Morphology released on: 10/14/2024 [employer]ards(TM) Advanced NGS Myeloid Report Cytogenetics Myeloid Disorder Immunohistochemical Analysis released on: 10/14/2024 ELECTRONIC SIGNATURE: Deanna Carlson M.D. Hematopathologist, ex. [phone] This report was electronically signed. 10/12/2024 8:10 AM LINE PAINTING MACHINE OPERATOR Narrative [facility] SOLID WASTE [facility] - 10/15/2024 9:19 AM LINE PAINTING MACHINE OPERATOR Testing performed at: [facility]. [address] [place] [address], Nutrition Teacher: Dr. 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 Normal cells were not found. - NOTE: translocation t(11;22) was identified in a prior bone marrow specimen (please refer to a prior bone marrow cytogenetic report [id number], 05/11/2024). The translocation t(11;22) identified in this [...] as clinical indication oncology chromosome analysis [address] [facility] study follow-up of abnormal BM cytogenetics findings). 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] Clinical Information D46.Z, D61.818 CANCER SOLID WASTE COLLECTION WORKER [facility] Specimen Comment See Note [facility] COLLE[facility] WORK[facility] Comment: HEPARIN, EDTA, CORE, ASPIRATE, SLIDES DX: PANCYTOPENIA, MDSDIAGNOSIS UNDER CONSIDERATION MDS;PAANCYTOPENIA Karyotype 46,XX,t( 11;22)(q 23;q11.2 )?c[20]( A) CANCER SOLID WASTE COLLECTION WORKER [facility] Metaphases Counted 20 [facility] Metaphases Analyzed 20 [facility] COLLE[facility] WORKER [facility] Metaphases Karyotyped 3 [facility] SOLID WASTE COLLECTION WORKER [facility] GTG Band Level 400 [facility]LE[facility] WORK[facility] Culture Type(s) 24hrU [facility] SOLID WASTE COLLECTION WORKER [facility] Comment: REFERENCES: Mihai L, Natasha [...] and its performance characteristics were determined by [employer] It has not been cleared or approved [...] on: 10/14/2024 ELECTRONIC SIGNATURE: Vaughn Gupta, PhD, [facility] Director, Cancer Cytogenetics This report was electronically signed. 10/12/2024 8:10 AM LINE PAINTING MACHINE OPERATOR Narrative CANCER SOLID WASTE [facility] - 10/16/2024 3:16 PM LINE PAINTING MACHINE OPERATOR Testing performed at: [facility]. [address] [place] [address], Nutrition Teacher: Dr. Parveen Hoffman M.D.; [facility] Accn#:[id number] Release to patient->Immediate us Jordi Olguin MD PATHOLOGY/CYTOLOGY ORDERABLE S Final Result CANCER SOLID WASTE COLLECTION WORKER [facility] [address] [place] [address], * (ABNORMAL) BONE MARROW MORPHOLOGY [place] 5199-5 (10/12/2024 8:10 AM LINE PAINTING MACHINE OPERATOR) BONE MARROW ANALYSIS Positive (A) CANCER SOLID WASTE COLLECTION WORKER [facility] Comment: COMMENT Correlation with pending genetic studies and other relevant clinical and laboratory data is suggested for further characterization. Clinical Information D46.Z, D61.818 CANCER SOLID WASTE COLLECTION WORKER [facility] Diagnosis Code(s) D46.Z, D61.818 CANCER SOLID WASTE COLLECTION WORKER [facility] Diagnosis See Note CANCER CODY TER SPECIALISTS [facility] Comment: BONE MARROW; ILIAC CREST; [...] comments. Specimen Comment See Note CAN CER SOLID WASTE COLLECTION WORKER [facility] Comment: HEPARIN, EDTA, CORE, ASPIRATE, SLIDES DX: PANCYTOPENIA, MDSDIAGNOSIS UNDER CONSIDERATION MDS;PAANCYTOPENIA Plasma Cells <1 0-1% % CANCER SOLID WASTE COLLECTION WORKER [facility] Myeloblasts 1 0-3% % CANCER C ENTER SPECIALISTS [facility] Promyelocytes 3 2-8% % CANCER SOLID WASTE COLLECTION WORKER [facility] Myelocytes 10 10-13% % CANCER CE NTER SPECIALISTS [facility] Metamyelocytes 11 10-15% % CANCE R SOLID WASTE COLLECTION WORKER [facility] Neutrophils / Bands 24 25-40% % CANCER SOLID WASTE COLLECTION WORKER [facility] Monocytes <1 0-1% % CANCER C[facility] Eosinophils 1 1-3% % CANCER C EN[facility] SPECIAL[facility] Basophils <1 0-1% % CANCER C[facility] Lymphocytes 2 10-15% % CANCER C [facility] Pronormoblasts 1 0-2% % CANCE R SOLID WASTE COLLECTION WORKER [facility] Normoblasts 47 15-25% % CANCER C ENTER SPECIAL[facility] WBC 3.0 k/uL CANCER CODY TER SPECIALISTS [facility] [facility] Hgb 6.3 gm/dL [facility] HCT 21.7 % [facility] MCV 97 fL [facility] RDW 14.2 fL [facility] PLT 99 k/uL [facility] Aspirate Cellularity See Note [facility] [employer] [facility] Comment: Satisfactory quality. The submitted bone marrow aspirate smear is cellular with adequate spicules and maturing trilineage hematopoiesis. Myeloid Precursors See Note [facility] Comment: The myeloid series shows complete granulocytic maturation to segmented neutrophils. There is no increase in number of blasts. Erythroid Precursors See Note [facility] Comment: Erythroid hyperplasia. Dyserythropoiesis in the form of megaloblastoid changes, nuclear membrane irregularities, focal budding and karyorrhexis. Megakaryocytes See Note [facility] Comment:There is focal megak aryocytic atypia. Lymphoid Cells See Note [facility] Comment:No overt cytologic a bnormalities. Iron Stain See Note [facility] Comment:Trace to absent stor age iron. No ring sideroblasts are noted. Myeloid:Erythroid Ratio 1:[address] [facility] Biopsy/Clot See Note [facility] Comment: Scant subcortical core biopsy sections [...] or clot. Gross Description See Note [facility] Comment: 1) Core: Received in formalin is a core of firm brown bony material measuring 1.2 x 0.2 x 0.2cm entirely submitted in 1 cassette following decalcification. 2) Clot: Received in formalin, clotted material measuring 2.0 x 1.7 x 0.6cm in aggregate, entirely submitted in 2 cassettes. 3) Number of slides received: 10 Associated Tests See Note [facility] Comment: Flow Cytometry Analysis for Myeloid/Lymphoid Disorders and Acute Leukemia released on: 10/14/2024 Estefania(KUNAL) Advanced NGS Myeloid Report Cytogenetics Myeloid Disorder Immunohistochemical Analysis released on: 10/14/2024 Electronic Signature See Note [facility] [employer] [facility] Comment: Deanna Carlson M.D. Hematopathologist, ex. [phone] This report was electronically signed. 10/12/2024 8:10 AM LINE PAINTING MACHINE OPERATOR Narrative [facility] - 10/14/2024 7:45 PM LINE PAINTING MACHINE OPERATOR Testing performed at: [facility]. [address] [place] [address] [place] [address], Nutrition Teacher: Dr. Parveen Hoffman M.D.; [employer] Accn#:[id number] Release to patient->Immediate Jordi Olguin MD LAB SEND OUTS Final Result [facility] [employer] [facility] [place] [address], [place] [phone] * (ABNORMAL) CMP (COMPREHENSIVE METABOLIC PANEL) (10/05/2024 1:29 PM LINE PAINTING MACHINE OPERATOR) Only the most recent of2 resultswithin the time period is included. Glucose 121(H) 70 - 105 mg/dL [facility] Blood Urea Nitrogen 28(H) 7 - 25 mg/dL [facility] Creatinine 0.9 0.6 - 1.2 mg/dL [facility] Sodium 145 136 - 145 mEq/L [facility] Potassium 4.2 3.5 - 5.1 mEq/L [facility] Chloride 104 98 - 107 mEq/L [facility] Bicarbonate 28 21 - 31 mEq/L [facility] Total Bilirubin 1.2(H) 0.3 - 1.0 mg/dL [facility] Alk. Phosphatase 71 34 - 104 U/L [facility] Aspartate Aminotransferase 23 13 - 39 U/L [facility] Alanine Aminotransferase 13 7 - 52 U/L [facility] Total Protein 5.4(L) 6.4 - 8.9 g/dL [facility] Albumin 3.3(L) 3.5 - 5.7 g/dL [facility] Calcium 9.6 8.6 - 10.3 mg/dL [employer] [employer] [facility] Anion Gap 17.2(H) 7.0 - 15.0 mEq/L [facility] Globulin 2.1 2.0 - 3.5 g/dL [facility] EGFR 65 >60 ml/min/1. 73m2 [employer] [employer] [facility] Comment: This eGFR is calculated using 2020 CKD-EPI Creatinine equation without race modifier based on the NKF-ASN task force recommendations Blood 10/05/2024 1:29 PM LINE PAINTING MACHINE OPERATOR Narrative [facility] [employer] [facility] - 10/05/2024 2:35 PM LINE PAINTING MACHINE OPERATOR Release to patient->Immediate IS THE PATIENT REQUIRED TO BE FASTING FOR 8 HOURS?->No Renetta Urbina APRN, BOILER WATER TESTER CHEMISTRY ORDERABLES Final Result Performing Organization Address [facility] de Phone Number [facility] [employer] [facility] [place] [address], * (ABNORMAL) RETICULOCYTE COUNT (RETIC) (08/24/2024 2:05 PM LINE PAINTING MACHINE OPERATOR) Reticulocyte count 4.27(H) 0.50 - 1.70 % [facility] RET-He 36.20 28.20 - 36.60 pg [facility] SOLID WASTE COLLECTION WORKER [facility] Comment: RET-He is a direct assessment of incorporation of iron into erythrocyte hemoglobin. It provides an indirect measure of the iron available for new erythropoiesis over past 2-4 days. Blood 08/24/2024 2:05 PM LINE PAINTING MACHINE OPERATOR Narrative [facility] [employer] [facility] - 08/24/2024 2:15 PM LINE PAINTING MACHINE OPERATOR Release to patient->Immediate Gay Dye APRN, BOILER WATER TESTER HEMATOLOGY ORDERABL ES Final Result Performing Organization Address [facility] Co de Phone Number [facility] [place] [address], from Last 3 Months Insurance [employer] S[employer]AL [employer]ICARE Care Teams Mobility Developer Relationship Specialty Start Date End Date Shivam Lombardo DO [address] [place] [id number] PCP - General Family Medicine 11/15/23 Trini Lazaro MD [address] [place] [address] Consulting Physician Oncology 11/15/23 Jordi Olguin MD [address] [place] [id number] Consulting Physician Oncology 05/11/24
--- OUTSIDE RECORDS SUMMARY | 2024-11-20 02:24 | XMS_ITS | Encounter Summary ---
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 Legal Sex Female 8:19 PM CDT Gender Identity Female 09/04/2021 4:46 PM SHELLFISH FARMING SUPERVISOR Sexual Orientation Not on file Occupation Industry Job Start Date Job End Date Not on file Not on file Not on file Not on file documented as of this encounter Plan of Treatment Upcoming Encounters Date Type Department Care Team (Late Contact Info) Description 01/13/2025 1:40 PM CDT Office Visit [facility] Family & Internal Medicine - [place] [address] [place] [address] [employer] Shivam LawsonDO [address] [place] [address] documented as of this encounter Goals Goal [...] on filedocumented in this encounter Care Teams Meter And Regulator Shop Supervisor Relationship Specialty Start Date End Date Shivam Lombardo DO [address] [place] [address] PCP - General FAMILY PRACTICE 05/29/21 Kimberly Vieira, RN [address] [facility] [address] [place] [id number] Registered Nurse CARE MANAGEMENT 03/23/24 documented as of this encounter
--- OUTSIDE RECORDS SUMMARY | 2024-11-20 02:24 | XMS_ITS | Clinical Summary ---
Author Organization [facility] Address [address] [place] [id number] Care Team Providers Care Group Activities Aide Name Role Phone Shivam Lombardo Lulu DO Primary Care Provider + Kimberly Vieira RN Unavailable [phone] Allergies No known active allergies Medications Glucose Blood test stripIndication s:Type 2 diabetes mellitus without complication, without long-term current use of insulin ([facility] HHS/[facility]) Check blood sugar once daily in AM when fasting 100 strip 11 05/30/20 22 Active Blood Glucose Monitoring Suppl (ONE TOUCH ULTRA 2) w/Device KitIndications: Type 2 diabetes mellitus without complication, without long-term current use of insulin ([facility] H[facility]) Check blood sugar once daily in AM when fasting 1 kit 05/30/20 22 Active Lancets (ONETOUCH ULTRASOFT) lancetsIndicati ons:Type 2 diabetes mellitus without complication, without long-term current use of insulin ([facility] H[facility]) Check blood sugar once daily [...] proximal vein of right lower extremity ([facility] HHS/[facility]) Take 2 tablets (10 mg total) by mouth 2 (two) times daily for 7 days, then take 1 tablet (5 mg total) by mouth 2 (two) times daily. 74 tablet 11/12/19 25 025 Discontinued(Re order) Active Problems Problem Noted Date Diagnosed Date MDS (myelodysplastic syndrome), low grade ([facility]) 07/29/2024 Gastroesophageal reflux disease 05/18/2024 Cirrhosis of liver ([facility]) 05/18/2024 Care Management 03/31/2024 Iron deficiency anemia 03/27/2024 Overweight with body mass in dex (BMI) of 29 to 29.9 in adult 03/27/2024 Pancytopenia 01/06/2024 SYEDA (generalized anxiety disorder) 05/29/2021 Hypertension associated with type 2 diabetes mellitus ([facility]) 05/29/2021 Mixed hyperlipidemia 05/29/2021 Type 2 diabetes mellitus wit h microalbuminuria, without long-term current use of insulin ([facility]) 05/29/2021 S/P total knee replacement, [...] - 11/19/2024 10:32 PM CDT Hospital Encounter [facility] [place] [address] Jordi Olguin MD Discharge Disposition: Home or Self Care (Routine Discharge) 11/19/2024 Travel 11/19/2024 Telephone [facility] Internal [address] [phone] Shivam Lombardo, DO Other 11/17/2024 Patient Outreach [facility] Internal [address] [phone] Kimberly Vieira, JON Care Management (CCM) 11/11/2024 [facility] INFO SRVCS Scanned, [facility] Ultrasound (SCAN) 11/11/2024 Telephone [facility] Internal [address] [phone] Shivam Lombardo, DO Results 11/10/[address] [phone] Shivam Lombardo, DO Information 11/06/2024 1:00 PM CDT Office Visit [address] [phone] Shivam Lombardo, DO Swelling (Bilateral LE. Swelling has improved since increasing lasix. ) 11/06/2024 Travel 11/05/2024 [facility] INFO SRVCS Scanned, [facility] Lab (SCAN) 11/04/[address] [phone] Shivam Lombardo, DO Swelling 10/30/2024 Telephone [facility] Internal [address] [phone] Shivam Lombardo, DO Advice 10/26/2024 3:09 PM CURRICULUM ASSISTANT PRINCIPAL - 10/26/2024 11:59 PM CURRICULUM ASSISTANT PRINCIPAL Hospital Encounter [facility] [place] [address] Jordi Olguin MD Discharge Disposition: Home or Self Care (Routine Discharge) 10/26/2024 3:09 PM CURRICULUM ASSISTANT PRINCIPAL - 10/26/2024 8:50 PM CURRICULUM ASSISTANT PRINCIPAL Hospital Encounter [facility] [place] [address] Jordi Olguin MD Discharge Disposition: Home or Self Care (Routine Discharge) 10/26/2024 Scan [facility] INFO SRVCS Scanned, [facility] 10/26/2024 Travel 10/26/2024 Orders Only [facility] [place] [address] Jordi Olguin MD 10/26/2024 Patient Outreach [facility] Internal [address] [phone] Elin Ni, TAVERN KEEPER 10/22/2024 Scan [facility] INFO SRVCS Scanned, [facility] Ultrasound (SCAN) 10/22/2024 Patient Outreach [address] [phone] Kimberly Vieira, RN Care Management (CCM) 10/12/2024 Scan [facility] INFO SRVCS Scanned, [facility] Lab (SCAN) 10/12/[address] [phone] Shivam Lombardo, Information 10/05/2024 3:11 PM CURRICULUM ASSISTANT PRINCIPAL - 10/06/2024 1:01 AM [facility] Emergency [facility] [place] [address] Khang Cohn, Abnormal Lab Results Discharge Disposition: Home or Self Care (Routine Discharge) 10/05/2024 Scan [facility] INFO SRVCS Scanned, [facility] 10/05/2024 Travel 09/29/2024 Scan [facility] INFO SRVCS Scanned, [facility] Image (SCAN); CT (SCAN); Ultrasound (SCAN) 09/28/2024 12:50 PM CURRICULUM ASSISTANT PRINCIPAL - 09/28/2024 5:05 PM [facility] Hospital Encounter [facility] [place] [address] Jordi Olguin MD Discharge Disposition: Home or Self Care (Routine Discharge) 09/28/2024 Travel 09/25/2024 Patient Outreach [facility] Internal [address] [phone] Kimberly Vieira RN Care Management (CCM) 09/24/2024 Scan [facility] INFO SRVCS Scanned, [facility] 09/22/2024 Scan [facility] INFO SRVCS Scanned, Doc [facility] 09/22/2024 Telephone [facility] Internal [place] [address] [place] [phone] Shivam Lombardo, DO Information 09/21/2024 4:05 PM CURRICULUM ASSISTANT PRINCIPAL - 09/21/2024 10:39 PM [facility] Emergency [facility] [place] [address] Rosalina Mcbride MD Jerome, Jason P, MD,PHD Abnormal Lab Results Discharge Disposition: Home or Self Care (Routine Discharge) 09/21/2024 Scan [facility] INFO SRVCS Scanned, [facility] 09/21/2024 Travel 09/16/2024 Patient Outreach [facility] Internal [place] [address] [place] [phone] Kimberly Vieira RN Care Management (CCM/) 09/10/2024 Telephone [facility] Internal [address] [phone] Shivam Lombardo, Information 09/02/2024 Telephone [facility] Medical Group Family & Internal Medicine [address] [phone] Shivam Lombardo DO Medication Request [...] Sex Assigned at Female 07/29/2024 1:13 PM CURRICULUM ASSISTANT PRINCIPAL Legal Sex Female 8:19 PM CDT Gender Identity Female 09/04/2021 4:46 PM CURRICULUM ASSISTANT PRINCIPAL Sexual Orientation Not on file Occupation Industry [...] Description 01/13/2025 1:40 PM CDT Office Visit [facility] Medical Group Family & Internal Medicine [facility] [address] [place] [phone] Shivam Lombardo, [address], [place] [phone] Health Maintenance Due Date Last Done Comments [...] or 60+ Years Completed 06/23/2024 PHQ-2 (Physician [place]) Completed 11/06/2024 Meningococcal B Vaccine Aged Out [...] 5:50 PM CDT Iron deficiency anemia Pancytopenia ([facility]/HCC) ULTRASOUND GENERIC (SCAN ORDER) 11/11/2024 COLLECT.CAPILLARY (FNGR,HEEL,EAR) Routine 11/06/2024 1:20 PM CDT Type 2 diabetes mellitus with other circulatory complication, without long-term current use of insulin ([facility] HHS/HCC) HEMOGLOBIN, GLYCOSYLATED Routine 11/06/2024 Type 2 diabetes mellitus with other circulatory complication, without long-term current use of insulin ([facility] HHS/HCC) OUTSIDE PT/INR (SCAN ORDER) 11/05/2024 OUTSIDE LAB (SCAN ORDER) 11/05/2024 TRANSFUSE RED BLOOD CELLS Routine 10/26/2024 5:09 PM CURRICULUM ASSISTANT PRINCIPAL TYPE & SCREEN Routine 10/26/2024 3:18 PM CURRICULUM ASSISTANT PRINCIPAL MDS (myelodysplastic syndrome), low grade (CMS/HCC HHS/HCC) ULTRASOUND GENERIC (SCAN ORDER) 10/22/2024 OUTSIDE LAB (SCAN ORDER) 10/12/2024 OUTSIDE LAB (SCAN ORDER) 10/12/2024 OUTSIDE LAB (SCAN ORDER) 10/12/2024 TRANSFUSE RED BLOOD CELLS STAT 10/05/2024 10:48 PM CURRICULUM ASSISTANT PRINCIPAL TRANSFUSE RED BLOOD CELLS STAT 10/05/2024 7:11 PM CURRICULUM ASSISTANT PRINCIPAL TYPE & SCREEN STAT 10/05/2024 3:20 PM CURRICULUM ASSISTANT PRINCIPAL PROTHROMBIN TIME, VENOUS STAT 10/05/2024 3:20 PM CURRICULUM ASSISTANT PRINCIPAL PARTIAL THROMBOPLASTIN TIME,PTT STAT 10/05/2024 3:20 PM CURRICULUM ASSISTANT PRINCIPAL CBC W/DIFF AUTOMATED STAT 10/05/2024 3:20 PM CURRICULUM ASSISTANT PRINCIPAL CT GENERIC 09/29/2024 IMAGE GENERIC 09/29/2024 ULTRASOUND GENERIC (SCAN ORDER) 09/29/2024 IMAGE GENERIC 09/29/2024 TRANSFUSE RED BLOOD CELLS Routine 09/28/2024 2:45 PM CURRICULUM ASSISTANT PRINCIPAL TYPE & SCREEN Routine 09/28/2024 1:15 PM CURRICULUM ASSISTANT PRINCIPAL MDS (myelodysplastic syndrome), low grade (CMS/HCC HHS/HCC) TRANSFUSE RED BLOOD CELLS STAT 09/21/2024 8:12 PM CURRICULUM ASSISTANT PRINCIPAL TRANSFUSE RED BLOOD CELLS STAT 09/21/2024 5:51 PM CURRICULUM ASSISTANT PRINCIPAL ECG 12-LEAD Routine 09/21/2024 4:33 PM CURRICULUM ASSISTANT PRINCIPAL IRON SAT PANEL (IRON,IBC,%SAT) STAT 09/21/2024 4:15 PM CURRICULUM ASSISTANT PRINCIPAL TROPONIN, QUANT STAT 09/21/2024 4:15 PM CURRICULUM ASSISTANT PRINCIPAL COMPREHENSIVE METABOLIC PANEL STAT 09/21/2024 4:15 PM CURRICULUM ASSISTANT PRINCIPAL PROTHROMBIN TIME, VENOUS STAT 09/21/2024 4:15 PM CURRICULUM ASSISTANT PRINCIPAL CBC W/DIFF AUTOMATED STAT 09/21/2024 4:15 PM CURRICULUM ASSISTANT PRINCIPAL TYPE & SCREEN STAT 09/21/2024 4:14 PM CURRICULUM ASSISTANT PRINCIPAL XR CHEST PORTABLE STAT 09/21/2024 4:1 2 PM CURRICULUM ASSISTANT PRINCIPAL COLONOSCOPY GENERIC (SCAN ORDER) 02/12/2024 HEPATITIS PANEL,ACUTE Routine 02/04/2024 11:05 AM CDT Pancytopenia, acquired Elevated liver enzymes Other cirrhosis of liver DIABETIC RETINOPATHY EXAM (NEGATIVE)(SCAN ORDER) Routine 09/02/2023 LIPID PANEL Routine 08/08/2023 11:25 AM CURRICULUM ASSISTANT PRINCIPAL Type 2 diabetes mellitus with microalbuminuria, without [...] (BACK OFFICE) (11/06/2024) HGB A1C 4.8 % [place] 11/06/2024 us Shivam Lombardo DO LABORATORY Final Re sult [facility] [address] [place] [address], [place] * OUTSIDE PT/INR (SCAN ORDER) (11/05/2024) 11/05/2024 us [facility] Scanned SCANNING Final Resu lt * OUTSIDE LAB (SCAN ORDER) (11/05/2024) Only the most recent of4 resultswithin the time period is included. 11/05/2024 us [facility] Scanned SCANNING Final Resu lt * TYPE & SCREEN (10/26/2024 3:18 PM CURRICULUM ASSISTANT PRINCIPAL) Only the most recent of4 resultswithin the time period is included. UNITS ORDERED 1 10/27/2024 6:31 AM CURRICULUM ASSISTANT PRINCIPAL [facility] ABO/RH A POSITIVE 10/26/2024 4:47 PM CURRICULUM ASSISTANT PRINCIPAL [facility] ANTIBODY SCREEN NEGATIVE 4:47 PM CURRICULUM ASSISTANT PRINCIPAL [facility] SAMPLE EXPIRATION 10/29/2024,2359 10/26/2024 4:47 PM CURRICULUM ASSISTANT PRINCIPAL [facility] BLOOD UNIT NUMBER [id number] 10/26/2024 4:47 PM CURRICULUM ASSISTANT PRINCIPAL [facility] PRODUCT: PC LEUKOPOOR 10/26/2024 4:47 PM CURRICULUM ASSISTANT PRINCIPAL [facility] UNIT DIVISION 00 10/26/2024 4:47 PM CURRICULUM ASSISTANT PRINCIPAL [facility] BLOOD UNIT STATUS TRANSFUSED,FINAL 10/27/2024 6:36 AM CURRICULUM ASSISTANT PRINCIPAL [facility] ISSUE DATE/TIME [id number] 6:36 AM CURRICULUM ASSISTANT PRINCIPAL [facility] PRODUCT CODE [id number] 10/27/2024 6:36 AM CURRICULUM ASSISTANT PRINCIPAL [facility] ABO/RH Unit A POS 10/27/2024 6:36 AM CURRICULUM ASSISTANT PRINCIPAL [facility] ABO/RH UNIT ISBT CODE 6200 10/27/2024 6:36 AM CURRICULUM ASSISTANT PRINCIPAL [facility] BLOOD UNIT EXPIRATION DATE [id number] 10/27/2024 6:36 AM CURRICULUM ASSISTANT PRINCIPAL [facility] TRANSFUSION STATUS OK TO TRANSFUSE 10/26/2024 4:47 PM CURRICULUM ASSISTANT PRINCIPAL [facility] CROSSMATCH COMPATIBLE-EXM 10/26/2024 4:47 PM CURRICULUM ASSISTANT PRINCIPAL [facility] 10/26/2024 3:18 PM CURRICULUM ASSISTANT PRINCIPAL Jordi Olguin MD BLOOD BANK TEST ORDERABLES F inal Result Performing Organization Address [facility]/ZIP Co de Phone Number [facility] [address] [place] [address], [place] [phone] * PARTIAL THROMBOPLASTIN TIME,PTT (10/05/2024 3:20 PM CURRICULUM ASSISTANT PRINCIPAL) PTT 36.5 25.1 - 36.5 SEC 10/05/2024 3:53 PM CURRICULUM ASSISTANT PRINCIPAL [facility] 10/05/2024 3:20 PM CURRICULUM ASSISTANT PRINCIPAL Tony NERI LABORATORY Final Resul t Performing Organization Address City/[facility]/ZIP Co de Phone Number [facility] [address] [place] [address], [place] [phone] * PROTIME/INR, VENOUS (10/05/2024 3:20 PM CURRICULUM ASSISTANT PRINCIPAL) Only the most recent of2 resultswithin the time period is included. PROTIME 12.9 10.2 - 12.9 SEC 10/05/2024 3:53 PM CURRICULUM ASSISTANT PRINCIPAL [facility] INR 1.1 10/05/2024 3:53 PM CURRICULUM ASSISTANT PRINCIPAL [facility] Comment: Recommended INR Therapeutic Goals: 2.0-3.0 Routine Therapy 2.5-3.5 Mechanical Prosthetic Valves (High Risk) 10/05/2024 3:20 PM CURRICULUM ASSISTANT PRINCIPAL Tony NERI LABORATORY Final Resul t [facility] [address] [place] [address], [place] [phone] * (ABNORMAL) CBC W/DIFF AUTOMATED (10/05/2024 3:20 PM CURRICULUM ASSISTANT PRINCIPAL) Only the most recent of2 resultswithin the time period is included. WBC 3.08(L) 4.5 - 11.0 x10'3/uL 10/05/2024 3:35 PM CURRICULUM ASSISTANT PRINCIPAL [facility] RBC 2.25(L) 4.20 - 5.40 x10'6/uL 10/05/2024 3:35 PM CURRICULUM ASSISTANT PRINCIPAL [facility] HGB 6.3(LL) 12.0 - 16.0 G/DL 10/05/2024 3:35 PM [facility] Comment: This result has been called to JOHN JUAN by [id number] on 10/05/2024 15:35:38, and has been read back. HCT 21.9(L) 38.0 - 48.0 % 10/05/2024 3:35 PM CURRICULUM ASSISTANT PRINCIPAL [facility] MCV 97.3 81.0 - 99.0 FL 10/05/2024 3:35 PM CURRICULUM ASSISTANT PRINCIPAL [facility] MCH 28.0 27.0 - 31.0 PG 10/05/2024 3:35 PM CURRICULUM ASSISTANT PRINCIPAL [facility] MCHC 28.8(L) 32.0 - 36.0 G/DL 10/05/2024 3:35 PM [facility] RDW 14.3 11.5 - 14.5 % 10/05/2024 3:35 PM [facility] PLT 105(L) 130 - 400 x10'3/uL 10/05/2024 3:35 PM [facility] MPV 11.9 9.3 - 12.2 FL 10/05/2024 3:35 PM [facility] DIFFERENTIAL TYPE AUTOMATED DIFFERENTIAL 10/05/2024 4:09 PM [facility] NEUTROPHILS % 63.1 % 10/05/2024 4:09 PM [facility] LYMPHOCYTES % 22.4 % 10/05/2024 4:09 PM [facility] MONOCYTES % 10.7 % 10/05/2024 4:09 PM [facility] EOSINOPHILS 3.2 % 10/05/2024 4:09 PM [facility] BASOPHILS 0.3 % 10/05/2024 4:09 PM [facility] IMMATURE GRANS % 0.3 % 10/05/19 25 4:09 PM [facility] ABS. NEUTROPHILS 1.94 1.80 - 7.70 x10'3/uL 10/05/2024 4:09 PM [facility] ABS. LYMPHOCYTES 0.69(L) 1.00 - 4.80 x10'3/uL 10/05/2024 4:09 PM [facility] ABS. MONOCYTES 0.33 0.24 - 0.86 x10'3/uL 10/05/2024 4:09 PM [facility] ABS. EOSINOPHILS 0.10 0.04 - 0.36 x10'3/uL 10/05/2024 4:09 PM [facility] ABS. BASOPHILS 0.01 0.01 - 0.08 x10'3/uL 10/05/2024 4:09 PM CURRICULUM ASSISTANT PRINCIPAL [facility] ABS. IMMATURE GRANULOCYTES 0.01 0.00 - 0.49 x10'3/uL 10/05/2024 4:09 PM [facility] RBC MORPHOLOGY RBC MORPHOLOGY APPEARS NORMAL. SLIDE REVIEWED. 10/05/2024 4:09 PM CURRICULUM ASSISTANT PRINCIPAL [facility] PLT EST. ADEQUATE 10/05/2024 4:09 PM CURRICULUM ASSISTANT PRINCIPAL [facility] 10/05/2024 3:20 PM CURRICULUM ASSISTANT PRINCIPAL Tony NERI LABORATORY Final Resul t [facility] [address] [place] [address], * CT GENERIC (09/29/2024) Anatomical Region Laterality Modality Other 09/29/2024 [employer] [facility] Scanned SCANNING Final Resu lt * IMAGE GENERIC (09/29/2024) Only the most recent of2 resultswithin the time period is included. 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: : 1945 Requested By: BONNIE ROSE Order Number: [id number] Reading JONES Tanner Measurements Intervals [place] Rate: 80 P: 89 WV: 165 QRS: -11 QRSD: 134 T: -2 QT: 419 QTc: 486 Interpretive Statements SINUS RHYTHM RIGHT BUNDLE BRANCH BLOCK [120+ ms QRS DURATION, UPRIGHT V1, 40+ ms S IN I/aVL/V4/V5/V6] MINIMAL VOLTAGE CRITERIA FOR LVH, CONSIDER NORMAL VARIANT [MEETS CRITERIA IN ONE OF: R(aVL), S(V1), R(V5), R(V5/V6)+S(V1)] No previous ECG available for comparison Other ischemic changes, not STEMI ICULUM ASSISTANT PRINCIPAL Procedure Note Tony Tanner MD - 09/21/[address] [place] Test Date: 2024-09-21 Pat Name: LEIA DILLON Department: 41 Room: Gender: Female 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: : 1945 Requested By: BONNIE ROSE Order Number: [id number] Reading : Tony Tanner Measurements Intervals [place] Rate: 80 P: 89 WV: 165 QRS: -11 QRSD: 134 T: -2 QT: 419 QTc: 486 Interpretive Statements SINUS RHYTHM RIGHT BUNDLE BRANCH BLOCK [120+ ms QRS DURATION, UPRIGHT V1, 40+ ms S IN I/aVL/V4/V5/V6] MINIMAL VOLTAGE CRITERIA FOR LVH, CONSIDER NORMAL VARIANT [MEETS CRITERIAIN ONE OF: R(aVL), S(V1), R(V5), R(V5/V6)+S(V1)] No previous ECG available for comparison Other ischemic changes, not STEMI ICULUM ASSISTANT PRINCIPAL us Bonnie Rose ASSEMBLER METAL FURNITURE ECG ORDERABLES Final Result [facility] RAD * IRON SAT PANEL (IRON,IBC,%SAT) (09/21/2024 4:15 PM CURRICULUM ASSISTANT PRINCIPAL) IRON 144 50.0 - 170.0 MCG/DL 09/21/2024 4:54 PM CURRICULUM ASSISTANT PRINCIPAL [facility] IRON BINDING CAPACITY 329 250 - 450 MCG/DL 09/21/2024 4:54 PM CURRICULUM ASSISTANT PRINCIPAL [facility] IRON SATURATION 44 20 - 55 % 4:54 PM [facility] 09/21/2024 4:15 PM CURRICULUM ASSISTANT PRINCIPAL Bonnie Rose NP LABORATORY Final Result [facility] [address] [place] [address], [place] [phone] * (ABNORMAL) COMPREHENSIVE METABOLIC PANEL (09/21/2024 4:15 PM CURRICULUM ASSISTANT PRINCIPAL) GLUCOSE 101(H) 70 - 99 MG/DL 09/21/2024 4:54 PM CURRICULUM ASSISTANT PRINCIPAL [facility] BUN 29(H) 7 - 18 MG/DL 09/21/2024 4:54 PM [facility] CREATININE S/P/B 0.91 0.55 - 1.02 MG/DL 09/21/2024 4:54 PM CURRICULUM ASSISTANT PRINCIPAL [facility] SODIUM S/P/B 140 136 - 145 MMOL/L 09/21/2024 4:54 PM [facility] POTASSIUM S/P/B 3.8 3.5 - 5.1 MMOL/L 09/21/2024 4:54 PM [facility] CHLORIDE S/P/B 104 97 - 115 MMOL/L 09/21/2024 4:54 PM [facility] CO2 30.5 21 - 32 MMOL/L 09/21/2024 4:54 PM [facility] CALCIUM S/P/B 9.6 8.5 - 10.1 MG/DL 09/21/2024 4:54 PM [facility] BILIRUBIN TOTAL S/P/B 0.7 0.2 - 1.2 MG/DL 09/21/2024 4:54 PM [facility] Comment: THIS ASSAY IS NOT RECOMMENDED FOR PATIENTS UNDERGOING TREATMENT WITH ELTROMBOPAG DUE TO THE POTENTIAL FOR FALSELY ELEVATED RESULTS. TOTAL PROTEIN S/P/B 5.8(L) 6.4 - 8.2 G/DL 09/21/2024 4:54 PM [facility] ALBUMIN S/P/B 2.9(L) 3.4 - 5.0 G/DL 09/21/2024 4:54 PM [facility] AST 39(H) 15 - 37 U/L 09/21/2024 4:54 PM [facility] ALT 23 14 - 55 U/L 09/21/2024 4:54 PM [facility] ALKALINE PHOSPHATASE S/P/B 79 50 - 136 U/L 09/21/2024 4:54 PM [facility] ANION GAP 5.5 2 - 10 MMOL/L 09/21/2024 4:54 PM [facility] BUN CREATININE RATIO 31.9(H) 6 - 26 09/21/2024 4:54 PM [facility] A/G RATIO 1.0 1.0 - 2.0 RATIO 09/21/2024 4:54 PM [facility] GFR ESTIMATE 65(L) >90 ML/MIN/1.7 3 M2 09/21/2024 4:54 PM [facility] Comment: NOTE: eGFR is not calculated for patients <18 years of age or gender unknown. This is an estimated GFR calculation using the new CKD EPI creatinine equation without race and so does not require a correction factor for race. This estimated GFR should not be used for calculating drug doses. 09/21/2024 4:15 PM CURRICULUM ASSISTANT PRINCIPAL Bonnie Rose ASSEMBLER METAL FURNITURE LABORATORY Final Result Performing Organization Address [facility] Co de Phone Number [facility] [address] [place] [address], [place] [phone] * TROPONIN, QUANT (09/21/2024 4:15 PM CURRICULUM ASSISTANT PRINCIPAL) TROPONIN I HIGH SENSITIVITY 8 <54 ng/L 09/21/2024 4:54 PM CURRICULUM ASSISTANT PRINCIPAL [facility] Comment: HIGH DOSES OF BIOTIN, TROPONIN-SPECIFIC AUTOANTIBODIES, AND ANTIBODY THERAPY CONTAINING HAMA MAY INTERFERE WITH THIS TEST RESULT. CORRELATION TO CLINICAL HISTORY AND PRESENTATION RECOMMENDED. 09/21/2024 4:15 PM CURRICULUM ASSISTANT PRINCIPAL Bonnie Rose ASSEMBLER METAL FURNITURE LABORATORY Final Result Performing Organization Address [facility] de Phone Number [facility] [address] [place] [address], [place] [phone] * XR CHEST PORTABLE (09/21/2024 4:12 PM CURRICULUM ASSISTANT PRINCIPAL) Anatomical Region Laterality Modality Chest Radiographic Nae ging 09/21/2024 4:14 PM CURRICULUM ASSISTANT PRINCIPAL Impressions 09/21/2024 4:15 PM CURRICULUM ASSISTANT PRINCIPAL =====IMPRESSION:===== No radiographic evidence of active chest disease. Ordered By: BONNIE ROSE Interpreted By: Benji Izquierdo MD, 09/21/2024 4:14 PM Narrative 09/21/2024 4:15 PM CURRICULUM ASSISTANT PRINCIPAL [facility] [address] [place], [place] [address] Examination: Chest x-ray 1 view Exam date/time: [...] Procedure Note Benji Izquierdo MD - 09/21/[address] [address] Examination: Chest x-ray 1 view Exam date/time: [...] MD, 09/21/2024 4:14 PM us Bonnie Rose ASSEMBLER METAL FURNITURE GENERAL IMAGING Final Result * COLONOSCOPY GENERIC (SCAN ORDER) (02/12/2024) 02/12/2024 [facility] Scanned SCANNING Final Resu lt * HEPATITIS PANEL,ACUTE (02/04/2024 11:05 AM CDT) Pathologist [facility] HEPATITIS B SURFACE AG NON-REACT SANTIAGO NON-REACT SANTIAGO 02/04/2024 7:22 PM CDT [facility] Comment:HBsAg NOT DETECTED. HEP B CORE IGM NON-REACT SANTIAGO NON-REACT SANTIAGO 02/04/2024 7:22 PM CDT [facility] Comment: IgM ANTI HBc NOT DETECTED. DOES NOT EXCLUDE THE POSSIBILITY OF EXPOSURE TO OR INFECTION WITH HBV. NO RETEST REQUIRED. HIGH DOSES OF BIOTIN MAY INTERFERE WITH THIS TEST RESULT. CORRELATION TO CLINICAL HISTORY AND PRESENTATION RECOMMENDED. [facility] I[facility] NON-REACT ASNTIAGO NON-REACT SANTIAGO 02/04/2024 7:22 PM CDT [facility] Comment: IgM ANTI HAV NOT DETECTED. DOES NOT EXCLUDE THE POSSIBILITY OF EXPOSURE TO OR INFECTION WITH HAV. LEVELS OF IgM ANTI HAV MAY BE BELOW THE CUTOFF IN EARLY INFECTION. HEPATITIS C AB NON-REACT SANTIAGO NON-REACT SANTIAGO 02/04/2024 7:22 PM CDT [facility] Comment: ANTIBODIES TO HCV NOT DETECTED. DOES NOT EXCLUDE THE POSSIBILITY OF EXPOSURE TO HCV. 02/04/2024 11:0 5 AM CDT Shivam Lombardo DO LABORATORY Final Re sult Performing Organization Address [facility]/ZIP Co de Phone Number [facility] [address] [place] [address], [id number] * DIABETIC RETINOPATHY EXAM (NEGATIVE) (09/02/2023) [facility] Scanned SCANNING Final Resu lt Performing Organization Address City/[facility]/ZIP Co de Phone Number [facility] ON[facility] * (ABNORMAL) LIPID PANEL (08/08/2023 11:25 AM CURRICULUM ASSISTANT PRINCIPAL) Pathologist [facility] CHOLESTEROL 123 100 - 199 mg/dL [facility] TRIGLYCERIDES 123 0 - 149 mg/dL [facility] HDL 32(L) >39 mg/dL [facility] VLDL CALCULATION 22 5 - 40 mg/dL [facility] LDL (CALCULATED) 69 0 - 99 mg/dL [facility] 1 08/08/2023 11:2 5 AM CURRICULUM ASSISTANT PRINCIPAL 08/08/2023 Narrative [facility] - 08/09/2023 9:11 AM CURRICULUM ASSISTANT PRINCIPAL Performed at: 01 - [facility] [address] [id number] Fur Buyer: Luciano Lawrence PhD, Phone: [phone] us Shivam Lombardo DO LABORATORY Final Re sult [facility] [address] [place] [address] [facility] * BONE DENSITY GENERIC (07/04/2022) Anatomical Region Laterality Modality Other 07/04/2022 [facility] Scanned SCANNING Final Resu lt from Last 3 Months or Most Recently Relevant to Health Maintenance Insurance MEDICARE [employer] Care Teams Group Activities Aide Relationship Specialty Start Date End Date Shivam Lombardo DO [address] [place] [id number] PCP - General FAMILY PRACTICE 05/29/21 Kimberly Vieira, RN [address] [place] [address] Registered Nurse CARE MANAGEMENT 03/23/24
--- OUTSIDE RECORDS SUMMARY | 2024-11-20 02:24 | XMS_ITS | Clinical Summary ---
Author Organization [facility] [employer] Address [address] [place] [address] Care Team Providers Care Roping Tender Name Role Phone Khang Gerer MD Primary Care Provider [phone] Source Comments [facility],non-owned Affiliates and Associated Physician Practices is amultiple site organization consisting of ambulatory clinics and hospital sitesin [place], [place] and [place]. This disclosure is being madepursuant to the Care Everywhere program and may not contain all information available regarding this patient. Last updated 18.[facility] [employer] Allergies No known active allergies Medications * [...] Visit [facility] [address] [facility], [place] [id number] Chad Reza MD [facility] [place] [address] Health Maintenance Due Date Last Done Comments [...] 2:29 AM 01/26/2024 4:42 PM Care Teams Roping Tender Relationship Specialty Start Date End Date Khang Greer MD [address] [facility] [address] [place] [address] PCP - General 10/31/16
--- OUTSIDE RECORDS SUMMARY | 2024-11-20 02:24 | XMS_ITS | Encounter Summary ---
Author Organization [facility] Address [address] [place] [address] Care Team Providers Care Laboratory Machinist Name Role Phone Shivam Lombardo DO Primary Care Provider + Kimberly Vieira RN Unavailable [phone] Reason for Visit * Reason Onset Date Comments Other 11/19/2024 Encounter Details Date Type Department Care Team (Late st Contact Info) Description 11/19/2024 Telephone [facility] Family & Internal Medicine [id number] [place] [address] Shivam Lombardo DO [facility] [place] [address] Other Social History Tobacco Use [...] Sex Assigned at Female 07/29/2024 1:13 PM COPPER ETCHER Legal Sex Female 8:19 PM CDT Gender Identity Female 09/04/2021 4:46 PM COPPER ETCHER Sexual Orientation Not on file Occupation Industry [...] Description 01/13/2025 1:40 PM CDT Office Visit [facility] Family & Internal Medicine - [id number] [place] [address] Shivam Lombardo DO [address] [place] [address] Scheduled Orders Name Type Priority Associated Diagnoses [...] (chronic) documented in this encounter Care Teams Laboratory Machinist Relationship Specialty Start Date End Date Shivam Lombardo DO [address] [place] [address] PCP - General FAMILY PRACTICE 05/29/21 Kimberly Vieira, RN [address] [address] Registered Nurse CARE MANAGEMENT 03/23/24 documented as of this encounter
[2024-11-20 02:36] LABS: Alanine Aminotransferase 21 U/L (6-35); Albumin Level 3.1 g/dL (3.5-5.1); Alkaline Phosphatase 91 U/L (38-126); Anion Gap 8 mmol/L (4-12); Aspartate Amino Transferase 30 U/L (14-36); Bilirubin,Total 1.3 mg/dL (0.2-1.3); Blood Urea Nitrogen 58 mg/dL (7-17); Carbon Dioxide 26 mmol/L (22-30); Chloride 104 mmol/L (98-107); Creatine Kinase 36 U/L (30-135); Estimated CRCL calculation 31 ml/min; Estimated Glomerular Filt Rate 40; Glucose 118 mg/dL (65-110); Potassium 4.2 mmol/L (3.4-5.0); Sodium 138 mmol/L (137-145)
[2024-11-20 02:59] LABS: Influenza A QL RT-PCR Negative (Negative); Influenza B QL RT-PCR Negative (Negative); RSV RNA, RT-PCR Negative (Negative); SARS-CoV-2 RNA PCR Negative (Negative)
[2024-11-20] MEDS: ACETAMINOPHEN 500 MG TABLET 1000 MG PO (03:01)
[2024-11-20 03:02] LABS: Add Urine Microscopic? NO; Appearance Urine Clear (Clear); Bilirubin Urine Negative (Negative); Blood Urine Negative (Negative); Color Urine Yellow (Yellow); Glucose Urine UA Negative (Negative); Ketones Urine Negative (Negative); Leukocyte Esterase Ur Negative LEU/UL (Negative); Nitrate Urine Negative (Negative); Protein Urine Negative (Negative); Specific Grav Ur 1.014 (1.001-1.035); Urobilinogen Urine 0.2 mg/dL (<2.0)
[2024-11-20] MEDS: SODIUM CHLORIDE 0.9% IV 250 ML 30 ML IV CONT (03:49)
[2024-11-20] MEDS: PANTOPRAZOLE SODIUM IV 40 MG VIAL 80 MG IV PUSH (04:57)
[2024-11-20] MEDS: OCTREOTIDE ACETATE 50 MCG/ML VIAL IV PUSH (05:03)
[2024-11-20] MEDS: ONDANSETRON INJ 4 MG/2 ML VIAL IV PUSH (05:15)
--- NOTE | 2024-11-20 06:02 | PC.NURSE ---
Pt receives CA tx at [facility].
[2024-11-20 06:19] LABS: Hematocrit 21.3 % (37.0-47.0)
[2024-11-20 06:29] LABS: Hemoglobin 6.9 g/dL (12.0-15.0)
--- NOTE | 2024-11-20 08:59 | ADMGEN ---
This patient, Leia Jane, was admitted to IMU Room 211-01 at 0855. Patient/family oriented to hospital policies and general routines including ID bracelet, bed and alarms, visiting hours, pain management, procedures, bathroom and other care routines, personal items, smoking policy, room service/diet, and visiting hours. Information on how to activate the Rapid Response Team has been discussed. Patient/Family are encouraged to report perceived risks to care and to ask questions if they do not understand what they are told or what they should do.
[2024-11-20] MEDS: TUBING, BLOOD PLUM PUMP TUBING 1 EACH XX (09:12)
--- NOTE | 2024-11-20 09:34 | P.HP_ITS ---
H&P: HPI History of Present Illness Date/Time: 11/20/24 09:34 Chief Complaint: Low Blood Pressure Narrative: Patient is a 79-year-old female who presented to the emergency department with complaints generalized weakness and low blood pressure readings at home. Patient has a history of diverticulitis, diabetes, hypertension GERD, cirrhosis, leukemia which she is undergoing current treatment for. Patient reports she was at her oncologist when day prior after she called to report her symptoms at which time she did receive 1 unit of PRBCs. Patient states she continued to have weakness and had her daughter take her blood pressure at which time was extremely low as well as experiencing dark tarry stool for the last 4 days. Patient reports she does commonly gets blood transfusions while undergoing her t herapy for cancer however patient was diagnosed with a new DVT to the right lower extremity and was started on Eliquis 7 days prior. Findings in the emergency department showed a hemoglobin 6.1 and a BP 99/40. Other labs reviewed and unremarkable other vital stable, CT showed no pulmonary embolism, small right pleural effusions, cirrhosis of the liver with portal venous hypertension, and small ascites. In the emergency department patient received octreotide, IVP protonix, and 3 units of PRBCs. Patient was admitted to the medical unit with consult to GI plans for EGD later on that day. Patient at time of assessment denied any chest pain, shortness a breath, dizziness but did endorse some nausea without vomiting. Review of Systems Review of Systems: All systems reviewed & are unremarkable except as noted in HPI and below PMFSH Past Medical History Medical History Falls Adenomatous colon polyp Thrombocytopenia Colon cancer screening Pancytopenia Cirrhosis Abnormal laboratory test Diverticulosis Pancreatitis gallstone Anxiety Gastroesophageal reflux disease DEJA (obstructive sleep apnea) No longer on CPAP after 100 lb weight loss Asthma Hypercholesterolemia Diabetes Hemoglobin A1c 5.26 February 2020 Essential hypertension Psoriasis Surgical History Surgical History History of colonoscopy with polypectomy History of total left knee replacement (10/2019) Hx of hysterectomy Due to uterine cancer History of cholecystectomy Family History Family History Father Asthma Mother Hypertension Diabetes mellitus Acute myocardial infarction Sibling End-stage renal disease on hemodialysis sister COPD (chronic obstructive pulmonary disease) brother and sister Acute myocardial infarction 2 brothers Renal cancer sister Social History Social History Social History: She has 2 sons. 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 patient is a lifelong nonsmoker. She does not use any alcohol marijuana illicit drugs. The patient desires to be a full code. Her oldest son is the durable power deep fryer assembler for healthcare. Code status: Full code Surrogate decision maker: Oldest son Smoking status: Never smoker Second hand tobacco smoke exposure: No Alcohol intake: never Substance use: never Substance use type: does not use Do You Feel Safe in your Home?: Yes Lack of Transportation: No Lack of Food: Never True Current Housing: I Have Housing Concerned About Future Housing: No Difficulty Paying Gas/Electric Bills: No Difficulty Paying for Meds: No Currently Unemployed: No Education: Bachelor's Degree Difficulty w/ Childcare or Family Care: No Living arrangements: alone Additional living arrangements comments: She lives in her own home. She has been since 1989 Occupation/Education: retired Spiritual care concerns: No Agree to blood products: Yes Meds Home Medications and Allergies Home Medications ?Medication ?Instructions ?Recorded ?Confirmed ?Type cyanocobalamin (vitamin B-12) 1,000 mcg PO DAILY 10/08/19 11/20/24 History 1,000 mcg capsule furosemide 20 mg tablet 20 mg PO DAILY 10/08/19 11/20/24 History fenofibrate 160 mg tablet 145 mg PO DAILY 05/18/20 11/20/24 History citalopram 10 mg tablet 10 mg PO DAILY 03/13/21 11/20/24 History lisinopril 20 mg tablet 40 mg PO QHS 03/13/21 11/20/24 History pantoprazole 40 mg tablet,delayed 40 mg PO QAM 03/13/21 11/20/24 History release albuterol sulfate 90 mcg/actuation 2 puff inhalation PRN PRN 06/22/21 11/20/24 Rx aerosol inhaler (Ventolin HFA) Shortness Of Breath #8.5 grams lidocaine 5 % topical patch 1 patch topical DAILY PRN pain #15 06/12/24 11/20/24 Rx ea apixaban 5 mg (74 tabs) tablets in See Rx Instructions .Route .COMPLEX 11/20/24 11/20/24 History a dose pack (EliContestomatik DVT-PE Treat 30D Start) atorvastatin 80 mg tablet 80 mg PO DAILY 11/20/24 11/20/24 History fluticasone propionate 50 2 spray intranasal QAM PRN 11/20/24 11/20/24 History mcg/actuation nasal Allergies spray,suspension furosemide 40 mg tablet 40 mg PO DAILY 11/20/24 11/20/24 History Allergies Allergy/AdvReac Type Severity Reaction Status Date / Time No Known Allergies Allergy Verified 11/20/24 13:48 Vital Signs Vital Signs - 24 hr 11/20/24 01:54 11/20/24 02:13 11/20/24 02:21 Temperature 97.9 F Pulse Rate 81 77 Respiratory Rate 14 14 16 Blood Pressure 99/40 L 99/40 L Pulse Oximetry 99 99 97 Oxygen Delivery Room Air 11/20/24 03:36 11/20/24 04:01 11/20/24 04:19 Temperature 97.8 F 97.8 F Pulse Rate 87 82 89 Respiratory Rate 16 19 14 Blood Pressure 112/40 L 108/53 L 101/56 L Pulse Oximetry 99 97 99 Oxygen Delivery 11/20/24 04:42 11/20/24 05:11 11/20/24 06:13 Temperature 97.9 F Pulse Rate 87 72 87 Respiratory Rate 15 17 Blood Pressure 113/53 L 104/50 L Pulse Oximetry 98 96 Oxygen Delivery 11/20/24 06:42 11/20/24 07:00 11/20/24 07:30 Temperature Pulse Rate 77 80 76 Respiratory Rate 16 16 14 Blood Pressure 111/46 L 108/46 L 106/50 L Pulse Oximetry 100 97 96 Oxygen Delivery 11/20/24 08:00 11/20/24 09:08 11/20/24 09:16 Temperature 98.1 F Pulse Rate 80 75 Respiratory Rate 16 20 Blood Pressure 109/51 L 106/42 L Pulse Oximetry 97 100 98 Oxygen Delivery Room Air Exam Narrative: Pleasant female Const: General: comfortable and no acute distress HENMT: Mouth: Yes moist mucous membranes Eyes: General: appearance normal, both eyes and all related structures Pupils: Equal, round and reactive pupils present Neck: Neck: supple Resp: Effort & Inspection: normal respiratory effort Auscultation: clear to auscultation bilaterally Cardio: Rate: regular rate Rhythm: regular rhythm GI: GI Palp: Yes Soft to palpation Auscultation: normal bowel sounds Other: Obese Skin: General skin exam: normal color Wounds: no wounds Neuro: Speech: normal speech Sensory Exam: normal sensation Extrem: General: normal to inspection Psych: Mental Status: mental status grossly normal Affect: normal affect H&P: Results Labs Labs: Short CBC 11/20/24 11/20/24 Range/Units 02:17 06:12 WBC 5.5 (4.5-10.0) K/mm3 Hgb 6.1 L* D 6.9 L* (12.0-15.0) g/dL Hct 19.6 L* 21.3 L (37.0-47.0) % Plt Count 132 L (150-375) k/mm3 BMP 11/20/24 02:17 Sodium 138 Potassium 4.2 Chloride 104 Carbon Dioxide 26 BUN 58 H D Creatinine 1.30 H Glucose 118 H Calcium 10.0 Cardiac Enzymes 11/20/24 Range/Units 02:17 Total Creatine Kinase 36 (30-135) U/L Liver Function 11/20/24 Range/Units 02:17 Total Bilirubin 1.3 (0.2-1.3) mg/dL AST 30 (14-36) U/L ALT 21 (6-35) U/L Alkaline Phosphatase 91 (38-126) U/L Albumin 3.1 L (3.5-5.1) g/dL Urine 11/20/24 Range/Units 02:56 Urine Color Yellow (Yellow) Urine Appearance Clear (Clear) Urine pH 5.0 (5.0-9.0) Ur Specific [place] 1.014 (1.001-1.035) Urine Protein Negative (Negative) mg/dL Urine Glucose (UA) Negative (Negative) mg/dL ECG Interpretation: EKG #1: Attestation: I personally reviewed and interpreted this ECG as follows: ECG completion date: 11/20/24 ECG completion time: 02:05 Prior ECG tracings: available for review (EKG from 05/01/2024.) Interpretation: Normal sinus rhythm at a rate of 74 beats per minute. OR interval 161. QRS 134. QT/QTC 433/461. RBBB given QRS greater [id number]; RSR' M-shaped pattern in V1-V3; wide, slurred S wave in lateral leads (I, aVL , not as appreciable in V5-6). T-wave inversions in lead 3; upright in contiguous inferior leads 2 and AVF. T-wave inversion in V3 and biphasic in V4. Imaging CT scan - abdomen: Radiologist's impression: Chest/Abdomen/Pelvis CTA 11/20/24 05:54 IMPRESSION: 1. No pulmonary embolus. 2. Small right pleural effusion. 3. Cirrhosis of the liver portal venous hypertension. 4. Small volume of ascites. Radiologist's impression: CTA Chest Stat Rad: No evidence of pulmonary emboli. Small right pleural effusion. No pneumothorax. Mild posterior dependent atelectasis in the right lower lobe adjacent to the effusion. Coronary artery calcification. Cardiomegaly CT abdomen pelvis with contrast: Cirrhosis. No focal hepatic lesion identified. 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 Small amount of ascites. Diverticulosis without diverticulitis. Bowel is otherwise unremarkable. No obstruction. ECG Data Assessment and Plan Assessment and plan (1) Anemia: Code(s): D64.9 - Anemia, unspecified Status: Acute Assessment and Plan: Patient with history of Cirrhosis HGb appears around mid 7's on previous admission. Patient gets transfusions O/P with Oncology last transfusion 11/18. Recently started on eliquis for DVT 7 days prior * CTA: cirrhosis of the liver with portal venous hypertension/ no ascites/ small right pleural effusion * HGB 6.1 POA * Occult positive * f/U after 1 unit PRBC 6.9 * Transfused 2 unit from ED and 3rd given on floor * H&H Q6HR * GI consulted follows with Dr. 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 fine grade bulldozer operator in [place] for Leukemia treatment * 132 POA * Trend * Transfuse FFP <20 * Likely related to Cirrhosis (3) Cirrhosis: Code(s): K74.60 - Unspecified cirrhosis of liver Status: Acute Assessment and Plan: * SHEA * Previously no HX of ascites but current CT showing small ascites * had referral to [facility] hepatology * liver enzyme within normal limits (4) Ascites: Code(s): R18.8 - Other ascites Status: Acute Assessment and Plan: * SEE Above #3 (5) Gastroesophageal reflux disease: Qualifiers: Esophagitis presence: without esophagitis Qualified Code(s): K21.9 - Gastro-esophageal reflux disease without esophagitis Code(s): K21.9 - Gastro-esophageal reflux disease without esophagitis Status: Acute Assessment and Plan: * Protonix BID IVP (6) Essential hypertension: Code(s): I10 - Essential (primary) hypertension Status: Acute Assessment and Plan: * Hypotensive on admission hold lisinopril until BP tolerates * BP per unit protocol (7) NED (acute kidney injury): Code(s): N17.9 - Acute kidney failure, unspecified Status: Acute Assessment and Plan: * Likely secondary to Anemia and dehydration * IV fluids * 2 units PRBC * Cr 1.30/BUN 58 POA Plan Code status: Full code per patient DVT prophylaxis: SCD's Stress ulcer prophylaxis: Protonix 40 BID PT/OT notes: Pending Disposition: patient was admitted for further evaluation treatment of hypotension likely secondary to anemia and possible GI bleed vs varices, patient will have consult with GI continue with q.6 H and H and NPO status pending GI recommendations likely will need possible EGD or colonoscopy. patient plans to return home when medically stable at discharge. Quality VTE Prophylaxis VTE prophylaxis: mechanical ordered -Patient's previous records reviewed on admission -ER notes reviewed in detail on admission -discussed all findings and current treatment plan with patient/Family/POA -Consultations reviewed for recommendations -Patient's disposition for safe discharge discussed with bottle caser Dictation performed by [employer] direct speech recognition software, therefore technical manager variants and typographical errors may occur. Hospitalist NAJMA Advance Care Plan I have confirmed that the patient's Advanced Care Plan is present, code status is documented, or surrogate decision maker is listed in patient medical record.: Yes Medication Reconciliation I have utilized all available resources to obtain, update and review the patients current medications (includes all prescriptions, OTC, herbals, cannabis, and nutritional supplements).: Yes The patient is not eligible for med reconciliation; the patient is in a emergent medical situation where delaying treatment would jeopardize the patients health.: No
[2024-11-20 10:09] LABS: Magnesium 2.5 mg/dL (1.6-2.3)
[2024-11-20 13:21] LABS: Hematocrit 25.7 % (37.0-47.0); Hemoglobin 8.2 g/dL (12.0-15.0)
--- NOTE | 2024-11-20 13:21 | PC.NURSE ---
To GI Lab per [ wheelchair]. Report given to [ Aileen].
[2024-11-20 13:57] LABS: Glucose Point of Care 112 mg/dl (65-105)
[2024-11-20] MEDS: LACTATED RINGERS 1,000 ML 150 ML IV CONT (13:58)
--- NOTE | 2024-11-20 14:22 | P.PNAN_ITS ---
Anes - Initial Pre Proc Eval Procedure: Operation Date: 11/20/24 15:30 Proposed Procedures p Esophagogastroduodenoscopy - Kemar Suresh MD Date/Time: 11/20/24 14:22 Surgeon: Geronimo Padilla MD Pre Op Diagnosis: gib,anemia requiring transfusion,hx cirrhosis and Patient Data Age: 79 Gender: F Height: 1.52 m Weight: 73.3 kg Last Vital Signs Temp 36.0 C L 11/20/24 13:49 Pulse 71 11/20/24 13:49 Resp 20 11/20/24 13:49 BP 117/47 L 11/20/24 13:49 Pulse Ox 100 11/20/24 13:49 O2 Del Method Room Air 11/20/24 13:49 Allergies Allergy/AdvReac Type Severity Reaction Status Date / Time No Known Allergies Allergy Verified 11/20/24 13:48 Home Medications ?Medication ?Instructions ?Recorded ?Confirmed ?Type cyanocobalamin (vitamin B-12) 1,000 mcg PO DAILY 10/08/19 11/20/24 History 1,000 mcg capsule furosemide 20 mg tablet 20 mg PO DAILY 10/08/19 11/20/24 History fenofibrate 160 mg tablet 145 mg PO DAILY 05/18/20 11/20/24 History citalopram 10 mg tablet 10 mg PO DAILY 03/13/21 11/20/24 History lisinopril 20 mg tablet 40 mg PO QHS 03/13/21 11/20/24 History pantoprazole 40 mg tablet,delayed 40 mg PO QAM 03/13/21 11/20/24 History release albuterol sulfate 90 mcg/actuation 2 puff inhalation PRN PRN 06/22/21 11/20/24 Rx aerosol inhaler (Ventolin HFA) Shortness Of Breath #8.5 grams lidocaine 5 % topical patch 1 patch topical DAILY PRN pain #15 06/12/24 11/20/24 Rx ea apixaban 5 mg (74 tabs) tablets in See Rx Instructions .Route .COMPLEX 11/20/24 11/20/24 History a dose pack (Eliquis DVT-PE Treat 30D Start) atorvastatin 80 mg tablet 80 mg PO DAILY 11/20/24 11/20/24 History fluticasone propionate 50 2 spray intranasal QAM PRN 11/20/24 11/20/24 History mcg/actuation nasal Allergies spray,suspension furosemide 40 mg tablet 40 mg PO DAILY 11/20/24 11/20/24 History Laboratory Tests 11/20/24 11/20/24 11/20/24 02:17 02:56 06:12 WBC 5.5 K/mm3 (4.5-10.0) RBC 2.07 L M/mm3 (4.2-5.4) Hgb 6.1 L* D g/dL 6.9 L* g/dL (12.0-15.0) (12.0-15.0) Hct 19.6 L* % 21.3 L % (37.0-47.0) (37.0-47.0) MCV 94.7 fl (80-100) MCH 29.5 pg (26-34) MCHC 31.1 L g/dl (32-36) RDW 16.3 H % (11.5-14.5) Plt Count 132 L k/mm3 (150-375) MPV 11.8 H fl (7.4-10.4) Immature Gran % (Auto) 0.4 % (0-0.5) Neut % (Auto) 64.0 % (45.5-73.1) Lymph % (Auto) 23.9 % (18.3-44.2) [place] % (Auto) 8.6 H % (2.6-8.5) Eos % (Auto) 2.7 % (0-4.4) Baso % (Auto) 0.4 % (0.2-1.2) Lymph # (Auto) 1.31 K/mm3 (0.9-3.2) [place] # (Auto) 0.5 K/mm3 (0.1-0.6) Eos # (Auto) 0.2 K/mm3 (0-0.3) Baso # (Auto) 0.0 K/mm3 (0.0-0.1) Abs Immat Gran (auto) 0.02 K/mm3 (0.00-0.031) Absolute Neuts (auto) 3.5 K/mm3 (1.3-6.7) Absolute Nucleated RBC 0.020 H K/mm3 (0.0-0.012) Nucleated RBC % 0.4 H % (0.0-0.2) Sodium 138 mmol/L (137-145) Potassium 4.2 mmol/L (3.4-5.0) Chloride 104 mmol/L (98-107) Carbon Dioxide 26 mmol/L (22-30) Anion Gap 8 mmol/L (4-12) BUN 58 H D mg/dL (7-17) Creatinine 1.30 H mg/dL (0.7-1.0) Estim Creat Clear Calc 31 ml/min Estimated GFR 40 L (59 - ) Glucose 118 H mg/dL (65-110) POC Capillary Glucose Calcium 10.0 mg/dL (8.4-10.2) Magnesium 2.5 H mg/dL (1.6-2.3) Total Bilirubin 1.3 mg/dL (0.2-1.3) AST 30 U/L (14-36) ALT 21 U/L (6-35) Alkaline Phosphatase 91 U/L (38-126) Total Creatine Kinase 36 U/L (30-135) Total Protein 6.0 L g/dL (6.3-8.2) Albumin 3.1 L g/dL (3.5-5.1) Urine Color Yellow (Yellow) Urine Appearance Clear (Clear) Urine pH 5.0 (5.0-9.0) Ur Specific [place] 1.014 (1.001-1.035) Urine Protein Negative mg/dL (Negative) Urine Glucose (UA) Negative mg/dL (Negative) Urine Ketones Negative mg/dL (Negative) Ur Blood (Man) Negative (Negative) Urine Nitrate Negative (Negative) Urine Bilirubin Negative (Negative) Urine Urobilinogen 0.2 mg/dL (<2.0) Leukocyte Esterase Rfl Negative SWATHI/UL (Negative) Influenza A (RT-PCR) Negative (Negative) Influenza B (RT-PCR) Negative (Negative) RSV (RT-PCR) Negative (Negative) SARS-CoV-2 RNA (RT-PCR) Negative (Negative) Blood Type A Positive Antibody Screen Negative Crossmatch See Detail 11/20/24 11/20/24 13:15 13:54 WBC RBC Hgb 8.2 L g/dL (12.0-15.0) Hct 25.7 L % (37.0-47.0) MCV MCH MCHC RDW Plt Count MPV Immature Gran % (Auto) Neut % (Auto) Lymph % (Auto) [place] % (Auto) Eos % (Auto) Baso % (Auto) Lymph # (Auto) [place] # (Auto) Eos # (Auto) Baso # (Auto) Abs Immat Gran (auto) Absolute Neuts (auto) Absolute Nucleated RBC Nucleated RBC % Sodium Potassium Chloride Carbon Dioxide Anion Gap BUN Creatinine Estim Creat Clear Calc Estimated GFR Glucose POC Capillary Glucose 112 H mg/dl (65-105) Calcium Magnesium Total Bilirubin AST ALT Alkaline Phosphatase Total Creatine Kinase Total Protein Albumin Urine Color Urine Appearance Urine pH Ur Specific [place] Urine Protein Urine Glucose (UA) Urine Ketones Ur Blood (Man) Urine Nitrate Urine Bilirubin Urine Urobilinogen Leukocyte Esterase Rfl Influenza A (RT-PCR) Influenza B (RT-PCR) RSV (RT-PCR) SARS-CoV-2 RNA (RT-PCR) Blood Type Antibody Screen Crossmatch Patient hx anesthesia problems: none Family hx anesthesia problems: none Results Review: All pre-operative results and documents have been reviewed as part of the pre- operative evaluation. [facility] Past Medical History Medical History Falls Adenomatous colon polyp Thrombocytopenia Colon cancer screening Pancytopenia Cirrhosis Abnormal laboratory test Diverticulosis Pancreatitis gallstone Anxiety Gastroesophageal reflux disease DEJA (obstructive sleep apnea) No longer on CPAP after 100 lb weight loss Asthma Hypercholesterolemia Diabetes Hemoglobin A1c 5.26 February 2020 Essential hypertension Psoriasis Surgical History Surgical History History of colonoscopy with polypectomy History of total left knee replacement (10/2019) Hx of hysterectomy Due to uterine cancer History of cholecystectomy Family History Family History Father Asthma Mother Hypertension Diabetes mellitus Acute myocardial infarction Sibling End-stage renal disease on hemodialysis sister COPD (chronic obstructive pulmonary disease) brother and sister Acute myocardial infarction 2 brothers Renal cancer sister Social History Social History Social History: She has 2 sons. 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 patient is a lifelong nonsmoker. She does not use any alcohol marijuana illicit drugs. The patient desires to be a full code. Her oldest son is the durable power real estate attorney for healthcare. Code status: Full code Surrogate decision maker: Oldest son Smoking status: Never smoker Second hand tobacco smoke exposure: No Alcohol intake: never Substance use: never Substance use type: does not use Do You Feel Safe in your Home?: Yes Lack of Transportation: No Lack of Food: Never True Current Housing: I Have Housing Concerned About Future Housing: No Difficulty Paying Gas/Electric Bills: No Difficulty Paying for Meds: No Currently Unemployed: No Education: Bachelor's Degree Difficulty w/ Childcare or Family Care: No Living arrangements: alone Additional living arrangements comments: She lives in her own home. She has been since 1989 Occupation/Education: retired Spiritual care concerns: No Agree to blood products: Yes Anes - Eval Final PreProcedure Day of Procedure 11/20/24 14:22 Patient weight: obese Heart: regular rate and rhythm Lungs: clear to auscultation Airway: Mallampati scale class II Neurological: alert and oriented Last oral intake: >/= 8 hours ASA classification: III Emergent: no Anesthetic plan: proceed Anesthesia type and monitoring: general GIVS and standard monitoring Results Review: All pre-operative results and documents have been reviewed as part of the pre- operative evaluation. Informed Consent: The patient's anesthetic plan and its attendant risks and benefits were discussed with the patient/family/POA. Questions were solicited and answers provided to the satisfaction of the patient/family/POA.
--- NOTE | 2024-11-20 14:59 | WPDGICN ---
Assessment and Plan Assessment and plan (1) Cirrhosis: Code(s): K74.60 - Unspecified cirrhosis of liver Status: Acute Assessment and Plan: Severe portal hypertensive gastropathy is the most probable cause of the patient's current bleeding, exacerbating her baseline anemia associated with her pre-leukemic state. The presence of Eliquis for DVT adds to the clinical problem. Treatment options for portal hypertensive gastropathy are limited. Although TIPS placement may offer some benefit, the increased risk of hepatic encephalopathy and mortality in patients over 70 necessitates careful consideration. A multidisciplinary discussion with hematology is warranted to evaluate the risk-benefit profile of continued anticoagulation, considering the patient's chronic and progressive portal hypertensive gastropathy secondary to cirrhosis. (2) Portal hypertensive gastropathy: Code(s): K76.6 - Portal hypertension; K31.89 - Other diseases of stomach and duodenum Status: Acute Plan - Suggest consulting hematology regarding : risk vs. 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 She came to emergency room this morning and found to be hypotensive and with black tarry stools that have been passing for 4 days. she received fluids and a total of 3 units of packed red blood cells during this morning. She has been followed in our practice for cirrhosis by Dr. Mccallum , and the conclusion is that her etiology is probably secondary to diabetes/ metabolic associated liver disease. He does not have a history of alcohol abuse and other etiologies such as autoimmune and viral hepatitis has been ruled out. The patient did not have esophageal varices in her last endoscopy in January 2024, but she did have changes of portal hypertensive gastropathy and petechiae. She also had a recent colonoscopy showing small polyp but no neoplasia. Review of Systems Review of Systems: All systems reviewed & are unremarkable except as noted in HPI and below PMFSH Past Medical History Medical History [place] Adenomatous colon polyp Thrombocytopenia Colon cancer screening Pancytopenia Cirrhosis Abnormal laboratory test Diverticulosis Pancreatitis gallstone Anxiety Gastroesophageal reflux disease DEJA (obstructive sleep apnea) No longer on CPAP after 100 lb weight loss Asthma Hypercholesterolemia Diabetes Hemoglobin A1c 5.26 February 2020 Essential hypertension Psoriasis Surgical History Surgical History History of colonoscopy with polypectomy History of total left knee replacement (10/2019) Hx of hysterectomy Due to uterine cancer History of cholecystectomy Family History Family History Father Asthma Mother Hypertension Diabetes mellitus Acute myocardial infarction Sibling End-stage renal disease on hemodialysis sister COPD (chronic obstructive pulmonary disease) brother and sister Acute myocardial infarction 2 brothers Renal cancer sister Social History Social History Social History: She has 2 sons. 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 patient is a lifelong nonsmoker. She does not use any alcohol marijuana illicit drugs. The patient desires to be a full code. Her oldest son is the durable power employee benefits attorney for healthcare. Code status: Full code Surrogate decision maker: Oldest son Smoking status: Never smoker Second hand tobacco smoke exposure: No Alcohol intake: never Substance use: never Substance use type: does not use Do You Feel Safe in your Home?: Yes Lack of Transportation: No Lack of Food: Never True Current Housing: I Have Housing Concerned About Future Housing: No Difficulty Paying Gas/Electric Bills: No Difficulty Paying for Meds: No Currently Unemployed: No Education: Bachelor's Degree Difficulty w/ Childcare or Family Care: No Living arrangements: alone Additional living arrangements comments: She lives in her own home. She has been since 1989 Occupation/Education: retired Spiritual care concerns: No Agree to blood products: Yes Meds Home Medications and Allergies Home Medications ?Medication ?Instructions ?Recorded ?Confirmed ?Type cyanocobalamin (vitamin B-12) 1,000 mcg PO DAILY 10/08/19 11/20/24 History 1,000 mcg capsule furosemide 20 mg tablet 20 mg PO DAILY 10/08/19 11/20/24 History fenofibrate 160 mg tablet 145 mg PO DAILY 05/18/20 11/20/24 History citalopram 10 mg tablet 10 mg PO DAILY 03/13/21 11/20/24 History lisinopril 20 mg tablet 40 mg PO QHS 03/13/21 11/20/24 History pantoprazole 40 mg tablet,delayed 40 mg PO QAM 03/13/21 11/20/24 History release albuterol sulfate 90 mcg/actuation 2 puff inhalation PRN PRN 06/22/21 11/20/24 Rx aerosol inhaler (Ventolin HFA) Shortness Of Breath #8.5 grams lidocaine 5 % topical patch 1 patch topical DAILY PRN pain #15 06/12/24 11/20/24 Rx ea apixaban 5 mg (74 tabs) tablets in See Rx Instructions .Route .COMPLEX 11/20/24 11/20/24 History a dose pack ([employer] DVT-PE Treat 30D Start) atorvastatin 80 mg tablet 80 mg PO DAILY 11/20/24 11/20/24 History fluticasone propionate 50 2 spray intranasal QAM PRN 11/20/24 11/20/24 History mcg/actuation nasal Allergies spray,suspension furosemide 40 mg tablet 40 mg PO DAILY 11/20/24 11/20/24 History Allergies Allergy/AdvReac Type Severity Reaction Status Date / Time No Known Allergies Allergy Verified 11/20/24 13:48 Vital Signs Vital Signs - 24 hr 11/20/24 01:54 11/20/24 02:13 11/20/24 02:21 Temperature 97.9 F Pulse Rate 81 77 Respiratory Rate 14 14 16 Blood Pressure 99/40 L 99/40 L Pulse Oximetry 99 99 97 Oxygen Delivery Room Air 11/20/24 03:36 11/20/24 04:01 11/20/24 04:19 Temperature 97.8 F 97.8 F Pulse Rate 87 82 89 Respiratory Rate 16 19 14 Blood Pressure 112/40 L 108/53 L 101/56 L Pulse Oximetry 99 97 99 Oxygen Delivery 11/20/24 04:42 11/20/24 05:11 11/20/24 06:13 Temperature 97.9 F Pulse Rate 87 72 87 Respiratory Rate 15 17 Blood Pressure 113/53 L 104/50 L Pulse Oximetry 98 96 Oxygen Delivery 11/20/24 06:42 11/20/24 07:00 11/20/24 07:30 Temperature Pulse Rate 77 80 76 Respiratory Rate 16 16 14 Blood Pressure 111/46 L 108/46 L 106/50 L Pulse Oximetry 100 97 96 Oxygen Delivery 11/20/24 08:00 11/20/24 09:00 11/20/24 09:08 Temperature 98 F Pulse Rate 80 76 Respiratory Rate 16 16 Blood Pressure 109/51 L 105/57 L Pulse Oximetry 97 99 100 Oxygen Delivery Room Air 11/20/24 09:16 11/20/24 09:32 11/20/24 10:00 Temperature 98.1 F 98 F Pulse Rate 75 73 88 Respiratory Rate 20 18 Blood Pressure 106/42 L 107/42 L Pulse Oximetry 98 100 Oxygen Delivery 11/20/24 10:32 11/20/24 11:32 11/20/24 11:52 Temperature 98.4 F 97.7 F 97.8 F Pulse Rate 78 80 76 Respiratory Rate 18 18 18 Blood Pressure 116/52 L 116/60 125/50 L Pulse Oximetry 95 98 99 Oxygen Delivery 11/20/24 13:49 Temperature 96.8 F L Pulse Rate 71 Respiratory Rate 20 Blood Pressure 117/47 L Pulse Oximetry 100 Oxygen Delivery Room Air Exam Narrative: Alert and oriented x3, cooperative. Lungs and chest: Clear to auscultation. Abdomen: Soft, nontender, no masses, no hepatosplenomegaly. Extremities: 1+ pitting edema. Neurologically intact. Results Labs 11/20/24 13:15 11/20/24 02:17 Labs: Short CBC 11/20/24 11/20/24 11/20/24 Range/Units 02:17 06:12 13:15 WBC 5.5 (4.5-10.0) K/mm3 Hgb 6.1 L* D 6.9 L* 8.2 L (12.0-15.0) g/dL Hct 19.6 L* 21.3 L 25.7 L (37.0-47.0) % Plt Count 132 L (150-375) k/mm3 [facility] [place] 11/20/24 02:17 Sodium 138 Potassium 4.2 Chloride 104 Carbon Dioxide 26 BUN 58 H D Creatinine 1.30 H Glucose 118 H Calcium 10.0 Cardiac Enzymes 11/20/24 Range/Units 02:17 Total Creatine Kinase 36 (30-135) U/L Liver Function 11/20/24 Range/Units 02:17 Total Bilirubin 1.3 (0.2-1.3) mg/dL AST 30 (14-36) U/L ALT 21 (6-35) U/L Alkaline Phosphatase 91 (38-126) U/L Albumin 3.1 L (3.5-5.1) g/dL Urine 11/20/24 Range/Units 02:56 Urine Color Yellow (Yellow) Urine Appearance Clear (Clear) Urine pH 5.0 (5.0-9.0) Ur Specific [place] 1.014 (1.001-1.035) Urine Protein Negative (Negative) mg/dL Urine Glucose (UA) Negative (Negative) mg/dL
--- NOTE | 2024-11-20 16:50 | PC.NURSE ---
Returned to room after GI Lab and Ultrasound. Report received from
[2024-11-20 22:27] LABS: Hematocrit 26.4 % (37.0-47.0); Hemoglobin 8.5 g/dL (12.0-15.0)
[2024-11-21] VITALS (15 sets, daily range): BP systolic 100–119; BP diastolic 37–70; PULSE 70–89; RESP 16–20; TEMP 36.4–37.8; O2SAT 94–99
[2024-11-21 04:25] LABS: Basophils Percent Auto 0.2 % (0.2-1.2); Eosinophils Absolute Auto 0.2 K/mm3 (0-0.3); Hematocrit 25.1 % (37.0-47.0); Immature Granulocyte Absolute 0.03 K/mm3 (0.00-0.031); Immature Granulocyte Percent A 0.6 % (0-0.5); Lymphocytes Absolute Auto 1.08 K/mm3 (0.9-3.2); Lymphocytes Percent Auto 20.5 % (18.3-44.2); Mean Corpuscular HGB Conc 31.9 g/dl (32-36); Mean Corpuscular Hemoglobin 29.4 pg (26-34); Mean Corpuscular Volume 92.3 fl (80-100); Mean Platelet Volume 11.4 fl (7.4-10.4); Monocytes Absolute Auto 0.4 K/mm3 (0.1-0.6); Monocytes Percent Auto 7.4 % (2.6-8.5); Neutrophils Absolute Auto 3.6 K/mm3 (1.3-6.7); Neutrophils Percent Auto 68.3 % (45.5-73.1); Nucleated Red Blood Cells Perc 0.4 % (0.0-0.2); Platelet Count Result 103 k/mm3 (150-375); Red Blood Count 2.72 M/mm3 (4.2-5.4); White Blood Count 5.3 K/mm3 (4.5-10.0)
[2024-11-21 04:38] LABS: Alanine Aminotransferase 19 U/L (6-35); Albumin Level 2.6 g/dL (3.5-5.1); Alkaline Phosphatase 72 U/L (38-126); Anion Gap 3 mmol/L (4-12); Aspartate Amino Transferase 31 U/L (14-36); Bilirubin,Total 1.2 mg/dL (0.2-1.3); Blood Urea Nitrogen 31 mg/dL (7-17); Carbon Dioxide 26 mmol/L (22-30); Chloride 109 mmol/L (98-107); Estimated CRCL calculation 37 ml/min; Estimated Glomerular Filt Rate 54; Glucose 87 mg/dL (65-110); Potassium 4.3 mmol/L (3.4-5.0); Sodium 138 mmol/L (137-145)
[2024-11-21] MEDS: ACETAMINOPHEN 325 MG TABLET 650 MG PO (09:14)
--- NOTE | 2024-11-21 10:25 | PM.IMPN ---
Subjective Date/time seen: 11/21/24 10:25 Objective Data Vital Signs Vital Signs: Vital Signs - 24 hr 11/20/24 10:32 11/20/24 11:32 11/20/24 11:52 Temperature 98.4 F 97.7 F 97.8 F Pulse Rate 78 80 76 Respiratory Rate 18 18 18 Blood Pressure 116/52 L 116/60 125/50 L Pulse Oximetry 95 98 99 Oxygen Delivery 11/20/24 12:00 11/20/24 12:00 11/20/24 13:49 Temperature 98.4 F 96.8 F L Pulse Rate 73 78 71 Respiratory Rate 18 20 Blood Pressure 116/52 L 117/47 L Pulse Oximetry 95 100 Oxygen Delivery Room Air 11/20/24 15:32 11/20/24 15:40 11/20/24 15:50 Temperature Pulse Rate 9 L 93 89 Respiratory Rate 14 18 24 H Blood Pressure 123/61 120/63 116/63 Pulse Oximetry 100 100 100 Oxygen Delivery Room Air Room Air Room Air 11/20/24 16:30 11/20/24 18:00 11/20/24 20:00 Temperature 98.1 F Pulse Rate 78 82 Respiratory Rate 16 Blood Pressure 114/52 L Pulse Oximetry 97 Oxygen Delivery Room Air 11/20/24 20:00 11/20/24 20:08 11/20/24 21:48 Temperature 98.6 F Pulse Rate 82 82 83 Respiratory Rate 15 Blood Pressure 110/45 L Pulse Oximetry 98 Oxygen Delivery 11/20/24 23:35 11/21/24 00:00 11/21/24 00:00 Temperature 98.5 F Pulse Rate 87 87 Respiratory Rate Blood Pressure 92/45 L Pulse Oximetry 95 Oxygen Delivery Room Air 11/21/24 02:00 11/21/24 03:47 11/21/24 04:00 Temperature 100.0 F H Pulse Rate 83 88 Respiratory Rate 20 Blood Pressure 100/59 L Pulse Oximetry 94 Oxygen Delivery Room Air 11/21/24 04:00 11/21/24 05:47 11/21/24 08:00 Temperature 97.6 F Pulse Rate 80 77 89 Respiratory Rate 20 Blood Pressure 119/70 Pulse Oximetry 97 Oxygen Delivery 11/21/24 08:00 11/21/24 08:00 11/21/24 10:00 Temperature Pulse Rate 83 74 Respiratory Rate Blood Pressure Pulse Oximetry Oxygen Delivery Room Air Intake/Output Intake/Output: Intake & Output 11/18/24 11/19/24 11/20/24 11/21/24 23:59 23:59 23:59 23:59 Intake Total 4010 300 Output Total 1600 1200 Balance 2410 -900 Meds/Results Medications: Active Medications Generic Name Dose Route Start Last Admin Trade Name Freq PRN Reason Stop Dose Admin Acetaminophen 650 mg 11/20/24 09:26 11/21/24 09:14 Acetaminophen 325 Mg Tablet PO 650 mg Q4H PRN Administration Mild Pain (1-3) or Fever Hydrocodone Bitart/Acetaminophen 1 tab 11/20/24 09:26 Hydrocodone/Acetaminophen (*Crx) 5-325 Mg Tablet PO Q4H PRN Moderate Pain (4-6) Morphine Sulfate 2 mg 11/20/24 06:22 Morphine Sulfate (*Crx) 2 Mg/Ml Inj IV PUSH Q2H PRN Pain Rated 7-10 Naloxone HCl 0.1 mg 11/20/24 09:26 Naloxone Hcl 0.4 Mg/Ml Vial IV PUSH Q2M PRN Opiate Reversal Ondansetron HCl 4 mg 11/20/24 09:26 Ondansetron Inj 4 Mg/2 Ml Vial IV PUSH Q6H PRN Nausea And Vomiting Radiology Results: ITS Impressions Chest/Abdomen/Pelvis CTA 11/20/24 05:54 IMPRESSION: 1. No pulmonary embolus. 2. Small right pleural effusion. 3. Cirrhosis of the liver portal venous hypertension. 4. Small volume of ascites. Venous Doppler Study 11/20/24 16:25 IMPRESSION: Noncompressible posterior tibial vein suggestive of deep vein thrombosis. Labs Labs: Laboratory Results - last 24 hr 11/20/24 11/20/24 11/20/24 02:17 13:15 13:54 WBC RBC Hgb 8.2 L Hct 25.7 L MCV MCH MCHC RDW Plt Count MPV Immature Gran % (Auto) Neut % (Auto) Lymph % (Auto) [place] % (Auto) Eos % (Auto) Baso % (Auto) Lymph # (Auto) [place] # (Auto) Eos # (Auto) Baso # (Auto) Abs Immat Gran (auto) Absolute Neuts (auto) Absolute Nucleated RBC Nucleated RBC % Sodium Potassium Chloride Carbon Dioxide Anion Gap BUN Creatinine Estim Creat Clear Calc Estimated GFR Glucose POC Capillary Glucose 112 H Calcium Total Bilirubin AST ALT Alkaline Phosphatase Total Protein Albumin Crossmatch See Detail 11/20/24 11/21/24 22:22 04:07 WBC 5.3 RBC 2.72 L Hgb 8.5 L 8.0 L Hct 26.4 L 25.1 L MCV 92.3 MCH 29.4 MCHC 31.9 L RDW 17.0 H Plt Count 103 L MPV 11.4 H Immature Gran % (Auto) 0.6 H Neut % (Auto) 68.3 Lymph % (Auto) 20.5 [place] % (Auto) 7.4 Eos % (Auto) 3.0 Baso % (Auto) 0.2 Lymph # (Auto) 1.08 [place] # (Auto) 0.4 Eos # (Auto) 0.2 Baso # (Auto) 0.0 Abs Immat Gran (auto) 0.03 Absolute Neuts (auto) 3.6 Absolute Nucleated RBC 0.020 H Nucleated RBC % 0.4 H Sodium 138 Potassium 4.3 Chloride 109 H Carbon Dioxide 26 Anion Gap 3 L BUN 31 H D Creatinine 0.99 Estim Creat Clear Calc 37 Estimated GFR 54 L Glucose 87 POC Capillary Glucose Calcium 9.0 Total Bilirubin 1.2 AST 31 ALT 19 Alkaline Phosphatase 72 Total Protein 5.0 L Albumin 2.6 L Crossmatch
[2024-11-21 12:07] LABS: Hematocrit 25.5 % (37.0-47.0)
--- NOTE | 2024-11-21 14:34 | P.PNGI_ITS ---
Progress Note: A&P Assessment and Plan (1) Cirrhosis: Code(s): K74.60 - Unspecified cirrhosis of liver Status: Acute (2) Portal hypertensive gastropathy: Code(s): K76.6 - Portal hypertension; K31.89 - Other diseases of stomach and duodenum Status: Acute Assessment and Plan: The patient's GI bleeding is attributed to cirrhosis-related severe portal hypertensive gastropathy, exacerbated by her concurrent need for anticoagulation due to deep venous thrombosis . In consultation with the hospitalist, placement of an IVC filter should be strongly considered. This would eliminate the need for anticoagulation, mitigating the risk of chronic bleeding from the portal gastropathy, for which there is no specific medical therapy. As previously discussed, TIPS is not a viable option given the patient's age and advanced liver disease. Subjective Date/time seen: 11/21/24 14:34 Interval history: The patient is stable, her hemoglobin has Remained unchanged for the last 48 hours. No melena or hematochezia. Exam Narrative: Unchanged from previous. Objective Data Vital Signs Vital Signs: Vital Signs - 24 hr 11/20/24 15:32 11/20/24 15:40 11/20/24 15:50 Temperature Pulse Rate 9 L 93 89 Respiratory Rate 14 18 24 H Blood Pressure 123/61 120/63 116/63 Pulse Oximetry 100 100 100 Oxygen Delivery Room Air Room Air Room Air 11/20/24 16:30 11/20/24 18:00 11/20/24 20:00 Temperature 98.1 F Pulse Rate 78 82 Respiratory Rate 16 Blood Pressure 114/52 L Pulse Oximetry 97 Oxygen Delivery Room Air 11/20/24 20:00 11/20/24 20:08 11/20/24 21:48 Temperature 98.6 F Pulse Rate 82 82 83 Respiratory Rate 15 Blood Pressure 110/45 L Pulse Oximetry 98 Oxygen Delivery 11/20/24 23:35 11/21/24 00:00 11/21/24 00:00 Temperature 98.5 F Pulse Rate 87 87 Respiratory Rate Blood Pressure 92/45 L Pulse Oximetry 95 Oxygen Delivery Room Air 11/21/24 02:00 11/21/24 03:47 11/21/24 04:00 Temperature 100.0 F H Pulse Rate 83 88 Respiratory Rate 20 Blood Pressure 100/59 L Pulse Oximetry 94 Oxygen Delivery Room Air 11/21/24 04:00 11/21/24 05:47 11/21/24 08:00 Temperature 97.6 F Pulse Rate 80 77 89 Respiratory Rate 20 Blood Pressure 119/70 Pulse Oximetry 97 Oxygen Delivery 11/21/24 08:00 11/21/24 08:00 11/21/24 10:00 Temperature Pulse Rate 83 74 Respiratory Rate Blood Pressure Pulse Oximetry Oxygen Delivery Room Air 11/21/24 11:47 11/21/24 12:00 11/21/24 14:00 Temperature 97.7 F Pulse Rate 77 80 82 Respiratory Rate 20 Blood Pressure 106/44 L Pulse Oximetry 96 Oxygen Delivery Intake/Output Intake/Output: Intake & Output 11/18/24 11/19/24 11/20/24 11/21/24 23:59 23:59 23:59 23:59 Intake Total 4010 400 Output Total 1600 1200 Balance 2410 -800 Meds/Results Medications: Active Medications Generic Name Dose Route Start Last Admin Trade Name Freq PRN Reason Stop Dose Admin Acetaminophen 650 mg 11/20/24 09:26 11/21/24 09:14 Acetaminophen 325 Mg Tablet PO 650 mg Q4H PRN Administration Mild Pain (1-3) or Fever Hydrocodone Bitart/Acetaminophen 1 tab 11/20/24 09:26 Hydrocodone/Acetaminophen (*Crx) 5-325 Mg Tablet PO Q4H PRN Moderate Pain (4-6) Morphine Sulfate 2 mg 11/20/24 06:22 Morphine Sulfate (*Crx) 2 Mg/Ml Inj IV PUSH Q2H PRN Pain Rated 7-10 Naloxone HCl 0.1 mg 11/20/24 09:26 Naloxone Hcl 0.4 Mg/Ml Vial IV PUSH Q2M PRN Opiate Reversal Ondansetron HCl 4 mg 11/20/24 09:26 Ondansetron Inj 4 Mg/2 Ml Vial IV PUSH Q6H PRN Nausea And Vomiting Radiology Results: ITS Impressions Chest/Abdomen/Pelvis CTA 11/20/24 05:54 IMPRESSION: 1. No pulmonary embolus. 2. Small right pleural effusion. 3. Cirrhosis of the liver portal venous hypertension. 4. Small volume of ascites. Venous Doppler Study 11/20/24 16:25 IMPRESSION: Noncompressible posterior tibial vein suggestive of deep vein thrombosis. Labs Labs: Laboratory Results - last 24 hr 03/28/25 03/29/25 03/29/25 22:22 04:07 11:35 WBC 5.3 RBC 2.72 L Hgb 8.5 L 8.0 L 8.0 L Hct 26.4 L 25.1 L 25.5 L MCV 92.3 MCH 29.4 MCHC 31.9 L RDW 17.0 H Plt Count 103 L MPV 11.4 H Immature Gran % (Auto) 0.6 H Neut % (Auto) 68.3 Lymph % (Auto) 20.5 [place] % (Auto) 7.4 Eos % (Auto) 3.0 Baso % (Auto) 0.2 Lymph # (Auto) 1.08 [place] # (Auto) 0.4 Eos # (Auto) 0.2 Baso # (Auto) 0.0 Abs Immat Gran (auto) 0.03 Absolute Neuts (auto) 3.6 Absolute Nucleated RBC 0.020 H Nucleated RBC % 0.4 H Sodium 138 Potassium 4.3 Chloride 109 H Carbon Dioxide 26 Anion Gap 3 L BUN 31 H D Creatinine 0.99 Estim Creat Clear Calc 37 Estimated GFR 54 L Glucose 87 Calcium 9.0 Total Bilirubin 1.2 AST 31 ALT 19 Alkaline Phosphatase 72 Total Protein 5.0 L Albumin 2.6 L
--- NOTE | 2024-11-21 16:29 | P.PNIM_ITS ---
Progress Note: A&P Assessment and Plan (1) Anemia: Code(s): D64.9 - Anemia, unspecified Status: Acute Assessment and Plan: Patient with history of Cirrhosis HGb appears around mid 7's on previous admission. Patient gets transfusions O/P with Oncology last transfusion 11/18. Recently started on eliquis for DVT 7 days prior * CTA: cirrhosis of the liver with portal venous hypertension/ no ascites/ small right pleural effusion * HGB 6.1 POA * Occult positive * f/U after 1 unit PRBC 6.9 * Transfused 2 unit from ED and 3rd given on floor * H&H Q6HR * GI consulted and follows with Dr. Mccallum 05/2024 * In ED octreotide administered * Protonix 80 mg IV push in the ED * Resumed IVP protonix BID * Last EGD 01/2024: with gastritis, no varices, colonoscopy with small polyps removed * 11/20/2024 underwent EGD which shows no esophageal varices. Severe diffuse gastritis was seen in the fundus, in the body of the stomach, and in the antrum. Evidence of portal hypertensive changes with most like pattern diffusely and marked friability. (2) Thrombocytopenia: Code(s): D69.6 - Thrombocytopenia, unspecified Status: Acute Assessment and Plan: HX of thrombocytopenia follows with change control specialist in [place] for Leukemia treatment * 132 POA * Trend * Transfuse FFP <20 * Likely related to Cirrhosis (3) Cirrhosis: Code(s): K74.60 - Unspecified cirrhosis of liver Status: Acute Assessment and Plan: * SHEA * Previously no HX of ascites but current CT showing small ascites * had referral to [facility] hepatology * liver enzyme within normal limits (4) Ascites: Code(s): R18.8 - Other ascites Status: Acute Assessment and Plan: * SEE Above #3 (5) Gastroesophageal reflux disease: Qualifiers: Esophagitis presence: without esophagitis Qualified Code(s): K21.9 - Gastro-esophageal reflux disease without esophagitis Code(s): K21.9 - Gastro-esophageal reflux disease without esophagitis Status: Acute Assessment and Plan: * Protonix BID IVP (6) Essential hypertension: Code(s): I10 - Essential (primary) hypertension Status: Acute Assessment and Plan: * Hypotensive on admission hold lisinopril until BP tolerates * BP per unit protocol (7) NED (acute kidney injury): Code(s): N17.9 - Acute kidney failure, unspecified Status: Acute Assessment and Plan: * Likely secondary to Anemia and dehydration * IV fluids * 2 units PRBC * Cr 1.30/BUN 58 POA Plan Code status: Full code per patient DVT prophylaxis: SCD's Stress ulcer prophylaxis: Protonix 40 BID PT/OT notes: Pending Disposition: patient was admitted for further evaluation treatment of hypotension likely secondary to anemia and possible GI bleed vs varices, patient will have consult with GI continue with q.6 H and H and NPO status pending GI recommendations likely will need possible EGD or colonoscopy. patient plans to return home when medically stable at discharge. Subjective Date/time seen: 11/21/24 16:29 Interval history: Interval Hx: The Patient lives alone and uses a walker at home for ambulation. PMHX of asthma, diverticulitis, diabetes, hypertension, GERD, cirrhosis, and leukemia. The Patient reports she was found to have low HgB about 8-9 months ago and underwent a biopsy with .She reports every weak on Saturday, she gets shots (not sure if it is either IV iron infusion or PRBC). Last Saturday, she did not receive the shot due to her HgB was 7. Unfortunately, in the subsequent days , she felt very weak. She went to the Heme/Onc clinic and received 1 U PRBC ? but still felt too tired, and her [id number] visited her home on Saturday and took her BP, which was very low. The Patient then came to [place] [facility]. Of note, the Patient follows up with for cirrhosis of the liver with portal venous hypertension. During this admission, patient GI was consulted due to low hemoglobin and, on 11/20/2024, underwent EGD, which shows no esophageal varices. Severe diffuse gastritis was seen in the fundus, in the body of the stomach, and the antrum. Evidence of portal hypertensive changes with most like pattern diffusely and marked friability. No active bleeding, no ulcers or erosions. The Patient had an endoscopy on 05/05/2024, which shows the same finding of portal hypertensive gastropathy and gastritis. I discussed this with the load checker, who reported the only difference between the recent one and the endoscopy performed on 05/05 2024 was the portal hypertensive changes with marked friability, possibly due to Eliquis. Today patient received 2 units of PRBC, and her hemoglobin is 8. The Patient reports she was diagnosed with DVT on Rt leg on Oct 14 and on Eliquis. Will consult Hematology/Oncology and surgery for IVC placement. Even though IVC placement can only prevent the clotted traveling from the extremities to the lungs, the patient still has a risk of pulmonary embolism. If IVC placement is performed, the patient will need her IVC removed in 2 to 3 months. The Patient probably has MDS. Review of Systems Review of Systems: All systems reviewed & are unremarkable except as noted in HPI and below Exam Narrative: Pleasant female Const: General: comfortable and no acute distress HENMT: Mouth: Yes moist mucous membranes Eyes: General: appearance normal, both eyes and all related structures Pupils: Equal, round and reactive pupils present Neck: Neck: supple Resp: Effort & Inspection: normal respiratory effort Auscultation: clear to auscultation bilaterally Cardio: Rate: regular rate Rhythm: regular rhythm GI: Auscultation: normal bowel sounds Other: Obese Skin: General skin exam: normal color Wounds: no wounds Neuro: Cranial nerves: Yes Equal, round and reactive pupils present Speech: normal speech Sensory Exam: normal sensation Extrem: General: normal to inspection Psych: Mental Status: mental status grossly normal Affect: normal affect Objective Data Vital Signs Vital Signs: Vital Signs - 24 hr 11/20/24 16:30 11/20/24 18:00 11/20/24 20:00 Temperature 98.1 F Pulse Rate 78 82 Respiratory Rate 16 Blood Pressure 114/52 L Pulse Oximetry 97 Oxygen Delivery Room Air 11/20/24 20:00 11/20/24 20:08 11/20/24 21:48 Temperature 98.6 F Pulse Rate 82 82 83 Respiratory Rate 15 Blood Pressure 110/45 L Pulse Oximetry 98 Oxygen Delivery 11/20/24 23:35 11/21/24 00:00 11/21/24 00:00 Temperature 98.5 F Pulse Rate 87 87 Respiratory Rate Blood Pressure 92/45 L Pulse Oximetry 95 Oxygen Delivery Room Air 11/21/24 02:00 11/21/24 03:47 11/21/24 04:00 Temperature 100.0 F H Pulse Rate 83 88 Respiratory Rate 20 Blood Pressure 100/59 L Pulse Oximetry 94 Oxygen Delivery Room Air 11/21/24 04:00 11/21/24 05:47 11/21/24 08:00 Temperature 97.6 F Pulse Rate 80 77 89 Respiratory Rate 20 Blood Pressure 119/70 Pulse Oximetry 97 Oxygen Delivery 11/21/24 08:00 11/21/24 08:00 11/21/24 10:00 Temperature Pulse Rate 83 74 Respiratory Rate Blood Pressure Pulse Oximetry Oxygen Delivery Room Air 11/21/24 11:47 11/21/24 12:00 11/21/24 14:00 Temperature 97.7 F Pulse Rate 77 80 82 Respiratory Rate 20 Blood Pressure 106/44 L Pulse Oximetry 96 Oxygen Delivery 11/21/24 16:00 11/21/24 16:24 Temperature 97.7 F Pulse Rate 73 75 Respiratory Rate 20 16 Blood Pressure 100/37 L 102/53 L Pulse Oximetry 99 Oxygen Delivery Intake/Output Intake/Output: Intake & Output 11/18/24 11/19/24 11/20/24 11/21/24 23:59 23:59 23:59 23:59 Intake Total 4010 400 Output Total 1600 1200 Balance 2410 -800 Meds/Results Medications: Active Medications Generic Name Dose Route Start Last Admin Trade Name Freq PRN Reason Stop Dose Admin Acetaminophen 650 mg 11/20/24 09:26 11/21/24 09:14 Acetaminophen 325 Mg Tablet PO 650 mg Q4H PRN Administration Mild Pain (1-3) or Fever Hydrocodone Bitart/Acetaminophen 1 tab 11/20/24 09:26 Hydrocodone/Acetaminophen (*Crx) 5-325 Mg Tablet PO Q4H PRN Moderate Pain (4-6) Morphine Sulfate 2 mg 11/20/24 06:22 Morphine Sulfate (*Crx) 2 Mg/Ml Inj IV PUSH Q2H PRN Pain Rated 7-10 Naloxone HCl 0.1 mg 11/20/24 09:26 Naloxone Hcl 0.4 Mg/Ml Vial IV PUSH Q2M PRN Opiate Reversal Ondansetron HCl 4 mg 11/20/24 09:26 Ondansetron Inj 4 Mg/2 Ml Vial IV PUSH Q6H PRN Nausea And Vomiting Radiology Results: ITS Impressions Chest/Abdomen/Pelvis CTA 11/20/24 05:54 IMPRESSION: 1. No pulmonary embolus. 2. Small right pleural effusion. 3. Cirrhosis of the liver portal venous hypertension. 4. Small volume of ascites. Venous Doppler Study 11/20/24 16:25 IMPRESSION: Noncompressible posterior tibial vein suggestive of deep vein thrombosis. Labs Labs: Laboratory Results - last 24 hr 11/20/24 11/21/24 11/21/24 22:22 04:07 11:35 WBC 5.3 RBC 2.72 L Hgb 8.5 L 8.0 L 8.0 L Hct 26.4 L 25.1 L 25.5 L MCV 92.3 MCH 29.4 MCHC 31.9 L RDW 17.0 H Plt Count 103 L MPV 11.4 H Immature Gran % (Auto) 0.6 H Neut % (Auto) 68.3 Lymph % (Auto) 20.5 [place] % (Auto) 7.4 Eos % (Auto) 3.0 Baso % (Auto) 0.2 Lymph # (Auto) 1.08 [place] # (Auto) 0.4 Eos # (Auto) 0.2 Baso # (Auto) 0.0 Abs Immat Gran (auto) 0.03 Absolute Neuts (auto) 3.6 Absolute Nucleated RBC 0.020 H Nucleated RBC % 0.4 H Sodium 138 Potassium 4.3 Chloride 109 H Carbon Dioxide 26 Anion Gap 3 L BUN 31 H D Creatinine 0.99 Estim Creat Clear Calc 37 Estimated GFR 54 L Glucose 87 Calcium 9.0 Total Bilirubin 1.2 AST 31 ALT 19 Alkaline Phosphatase 72 Total Protein 5.0 L Albumin 2.6 L Quality VTE Prophylaxis VTE prophylaxis: mechanical ordered Hospitalist MIPS Advance Care Plan I have confirmed that the patient's Advanced Care Plan is present, code status is documented, or surrogate decision maker is listed in patient medical record.: Yes Medication Reconciliation I have utilized all available resources to obtain, update and review the patients current medications (includes all prescriptions, OTC, herbals, cannabis, and nutritional supplements).: Yes
--- NOTE | 2024-11-21 16:33 | P.PNAN_ITS ---
Anes - Prog Note Post-Op Date/Time: 11/21/24 16:33 Cardiovascular status: normal Respiratory status: normal Airway patency: baseline Mental status: baseline Post-Op hydration status: normal Vital Signs: Last Vital Signs Temp 36.5 C 11/21/24 16:00 Pulse 75 11/21/24 16:24 Resp 16 11/21/24 16:24 BP 102/53 L 11/21/24 16:24 Pulse Ox 99 11/21/24 16:00 O2 Del Method Room Air 11/21/24 08:00 Pain Score (VAS): 1 I/O: Intake & Output 11/21/24 11/21/24 11/21/24 07:59 15:59 23:59 Intake Total 200 200 Output Total 900 300 Balance -700 -100 Laboratory Tests 11/21/24 11:35 11/21/24 04:07 11/20/24 11/21/24 11/21/24 22:22 04:07 11:35 WBC 5.3 RBC 2.72 L Hgb 8.5 L 8.0 L 8.0 L Hct 26.4 L 25.1 L 25.5 L MCV 92.3 MCH 29.4 MCHC 31.9 L RDW 17.0 H Plt Count 103 L MPV 11.4 H Immature Gran % (Auto) 0.6 H Neut % (Auto) 68.3 Lymph % (Auto) 20.5 [place] % (Auto) 7.4 Eos % (Auto) 3.0 Baso % (Auto) 0.2 Lymph # (Auto) 1.08 [place] # (Auto) 0.4 Eos # (Auto) 0.2 Baso # (Auto) 0.0 Abs Immat Gran (auto) 0.03 Absolute Neuts (auto) 3.6 Absolute Nucleated RBC 0.020 H Nucleated RBC % 0.4 H Sodium 138 Potassium 4.3 Chloride 109 H Carbon Dioxide 26 Anion Gap 3 L BUN 31 H D Creatinine 0.99 Estim Creat Clear Calc 37 Estimated GFR 54 L Glucose 87 Calcium 9.0 Total Bilirubin 1.2 AST 31 ALT 19 Alkaline Phosphatase 72 Total Protein 5.0 L Albumin 2.6 L Post-procedural complaints: none Patient Feedback: Patient satisfied with anesthetic care.
--- NOTE | 2024-11-21 17:35 | PC.NURSE ---
This patient, Leia Jane, was transferred to [facility] on 11/21/24 at 1700. Personal belongings sent with patient. Report given to Sherri. Appropriate documentation sent with patient.
[2024-11-21] MEDS: HYDROcodone/acetaminophen (*CRX) 5-325 MG TABLET 1 TAB PO (20:59)
[2024-11-22] VITALS (9 sets, daily range): BP systolic 114–128; BP diastolic 50–59; PULSE 63–88; RESP 18–20; TEMP 36.1–36.8; O2SAT 92–99
[2024-11-22] MEDS: HYDROcodone/acetaminophen (*CRX) 5-325 MG TABLET 1 TAB PO ×2 (02:46→20:42)
[2024-11-22 05:45] LABS: Basophils Percent Auto 0.3 % (0.2-1.2); Eosinophils Absolute Auto 0.1 K/mm3 (0-0.3); Eosinophils Percent Auto 3.5 % (0-4.4); Hematocrit 25.3 % (37.0-47.0); Hemoglobin 7.9 g/dL (12.0-15.0); Immature Granulocyte Absolute 0.02 K/mm3 (0.00-0.031); Immature Granulocyte Percent A 0.6 % (0-0.5); Lymphocytes Absolute Auto 0.88 K/mm3 (0.9-3.2); Lymphocytes Percent Auto 25.8 % (18.3-44.2); Mean Corpuscular HGB Conc 31.2 g/dl (32-36); Mean Corpuscular Hemoglobin 29.7 pg (26-34); Mean Corpuscular Volume 95.1 fl (80-100); Mean Platelet Volume 11.9 fl (7.4-10.4); Monocytes Absolute Auto 0.3 K/mm3 (0.1-0.6); Monocytes Percent Auto 8.8 % (2.6-8.5); Neutrophils Absolute Auto 2.1 K/mm3 (1.3-6.7); Platelet Count Result 86 k/mm3 (150-375); Red Blood Count 2.66 M/mm3 (4.2-5.4); Red Cell Distribution Width 16.5 % (11.5-14.5); White Blood Count 3.4 K/mm3 (4.5-10.0)
[2024-11-22 05:59] LABS: Alanine Aminotransferase 20 U/L (6-35); Albumin Level 2.5 g/dL (3.5-5.1); Alkaline Phosphatase 72 U/L (38-126); Anion Gap 3 mmol/L (4-12); Aspartate Amino Transferase 31 U/L (14-36); Bilirubin,Total 0.8 mg/dL (0.2-1.3); Blood Urea Nitrogen 25 mg/dL (7-17); Calcium 8.9 mg/dL (8.4-10.2); Carbon Dioxide 27 mmol/L (22-30); Chloride 106 mmol/L (98-107); Estimated CRCL calculation 48 ml/min; Estimated Glomerular Filt Rate > 60; Glucose 99 mg/dL (65-110); Potassium 4.4 mmol/L (3.4-5.0); Sodium 136 mmol/L (137-145)
--- NOTE | 2024-11-22 06:57 | P.PNIM_ITS ---
Progress Note: A&P Assessment and Plan (1) Anemia: Code(s): D64.9 - Anemia, unspecified Status: Acute Assessment and Plan: Patient with history of Cirrhosis HGb appears around mid 7's on previous admission. Patient gets transfusions O/P with Oncology last transfusion 11/18. Recently started on eliquis for DVT 7 days prior * CTA: cirrhosis of the liver with portal venous hypertension/ no ascites/ small right pleural effusion * HGB 6.1 POA * Occult positive * f/U after 1 unit PRBC 6.9 * Transfused 2 unit from ED and 3rd given on floor * H&H Q6HR * GI consulted and follows with Dr. Mccallum 05/2024 * In ED octreotide administered * Protonix 80 mg IV push in the ED * Resumed IVP protonix BID * Last EGD 01/2024: with gastritis, no varices, colonoscopy with small polyps removed * 11/20/2024 underwent EGD which shows no esophageal varices. Severe diffuse gastritis was seen in the fundus, in the body of the stomach, and in the antrum. Evidence of portal hypertensive changes with most like pattern diffusely and marked friability. (2) Thrombocytopenia: Code(s): D69.6 - Thrombocytopenia, unspecified Status: Acute Assessment and Plan: HX of thrombocytopenia follows with ethologist in [place] for Leukemia treatment * 132 POA * Trend * Transfuse FFP <20 * Likely related to Cirrhosis (3) Cirrhosis: Code(s): K74.60 - Unspecified cirrhosis of liver Status: Acute Assessment and Plan: * SHEA * Previously no HX of ascites but current CT showing small ascites * had referral to [facility] hepatology * liver enzyme within normal limits (4) Ascites: Code(s): R18.8 - Other ascites Status: Acute Assessment and Plan: * SEE Above #3 (5) Gastroesophageal reflux disease: Qualifiers: Esophagitis presence: without esophagitis Qualified Code(s): K21.9 - Gastro-esophageal reflux disease without esophagitis Code(s): K21.9 - Gastro-esophageal reflux disease without esophagitis Status: Acute Assessment and Plan: * Protonix BID IVP (6) Essential hypertension: Code(s): I10 - Essential (primary) hypertension Status: Acute Assessment and Plan: * Hypotensive on admission hold lisinopril until BP tolerates * BP per unit protocol (7) NED (acute kidney injury): Code(s): N17.9 - Acute kidney failure, unspecified Status: Acute Assessment and Plan: * Likely secondary to Anemia and dehydration * IV fluids * 2 units PRBC * Cr 1.30/BUN 58 POA Plan Code status: Full code per patient DVT prophylaxis: SCD's Stress ulcer prophylaxis: Protonix 40 BID PT/OT notes: Pending Disposition: patient was admitted for further evaluation treatment of hypotension likely secondary to anemia and possible GI bleed vs varices, patient will have consult with GI continue with q.6 H and H and NPO status pending GI recommendations likely will need possible EGD or colonoscopy. patient plans to return home when medically stable at discharge. Subjective Date/time seen: 11/22/24 06:57 Interval history: Patient is a 79-year-old female who presented to the emergency department with complaints generalized weakness and low blood pressure readings at home. Patient has a history of diverticulitis, diabetes, hypertension GERD, cirrhosis, leukemia which she is undergoing current treatment for. Patient reports she was at her oncologist when day prior after she called to report her symptoms at which time she did receive 1 unit of PRBCs. Patient states she continued to have weakness and had her daughter take her blood pressure at which time was extremely low as well as experiencing dark tarry stool for the last 4 days. 11/22/2024 Will consult Hematology/Oncology and surgery for IVC placement. Even though IVC placement can only prevent the clotted traveling from the extremities to the lungs, the patient still has a risk of pulmonary embolism. If IVC placement is performed, the patient will need her IVC removed in 2 to 3 months. The Patient probably has MDS. Review of Systems Review of Systems: All systems reviewed & are unremarkable except as noted in HPI and below Exam Narrative: Pleasant female Const: General: comfortable and no acute distress HENMT: Mouth: Yes moist mucous membranes Eyes: General: appearance normal, both eyes and all related structures Pupils: Equal, round and reactive pupils present Neck: Neck: supple Resp: Effort & Inspection: normal respiratory effort Auscultation: clear to auscultation bilaterally Cardio: Rate: regular rate Rhythm: regular rhythm GI: Auscultation: normal bowel sounds Other: Obese Skin: General skin exam: normal color Wounds: no wounds Neuro: Cranial nerves: Yes Equal, round and reactive pupils present Speech: normal speech Sensory Exam: normal sensation Extrem: General: normal to inspection Psych: Mental Status: mental status grossly normal Affect: normal affect Objective Data Vital Signs Vital Signs: Vital Signs - 24 hr 11/21/24 08:00 11/21/24 08:00 11/21/24 08:00 Temperature 97.6 F Pulse Rate 89 83 Respiratory Rate 20 Blood Pressure 119/70 Pulse Oximetry 97 Oxygen Delivery Room Air 11/21/24 10:00 11/21/24 11:47 11/21/24 12:00 Temperature 97.7 F Pulse Rate 74 77 80 Respiratory Rate 20 Blood Pressure 106/44 L Pulse Oximetry 96 Oxygen Delivery 11/21/24 14:00 11/21/24 16:00 11/21/24 16:00 Temperature 97.7 F Pulse Rate 82 73 77 Respiratory Rate 20 Blood Pressure 100/37 L Pulse Oximetry 99 Oxygen Delivery 11/21/24 16:24 11/21/24 20:00 11/21/24 20:00 Temperature Pulse Rate 75 70 73 Respiratory Rate 16 16 Blood Pressure 102/53 L Pulse Oximetry 97 Oxygen Delivery Room Air 11/21/24 20:20 11/21/24 22:00 11/22/24 00:00 Temperature 98.6 F 99.3 F Pulse Rate 70 71 83 Respiratory Rate 16 16 Blood Pressure 114/50 L 107/51 L Pulse Oximetry 97 96 Oxygen Delivery 11/22/24 04:00 11/22/24 05:09 Temperature 97.5 F L Pulse Rate 69 63 Respiratory Rate 20 Blood Pressure 114/57 L Pulse Oximetry 97 Oxygen Delivery Intake/Output Intake/Output: Intake & Output 11/19/24 11/20/24 11/21/24 11/22/24 23:59 23:59 23:59 23:59 Intake Total 4010 1090 500 Output Total 1600 1200 Balance 2410 -110 500 Meds/Results Medications: Active Medications Generic Name Dose Route Start Last Admin Trade Name Freq PRN Reason Stop Dose Admin Acetaminophen 650 mg 11/20/24 09:26 11/21/24 09:14 Acetaminophen 325 Mg Tablet PO 650 mg Q4H PRN Administration Mild Pain (1-3) or Fever Hydrocodone Bitart/Acetaminophen 1 tab 11/20/24 09:26 11/22/24 02:46 Hydrocodone/Acetaminophen (*Crx) 5-325 Mg Tablet PO 1 tab Q4H PRN Administration Moderate Pain (4-6) Morphine Sulfate 2 mg 11/20/24 06:22 Morphine Sulfate (*Crx) 2 Mg/Ml Inj IV PUSH Q2H PRN Pain Rated 7-10 Naloxone HCl 0.1 mg 11/20/24 09:26 Naloxone Hcl 0.4 Mg/Ml Vial IV PUSH Q2M PRN Opiate Reversal Ondansetron HCl 4 mg 11/20/24 09:26 Ondansetron Inj 4 Mg/2 Ml Vial IV PUSH Q6H PRN Nausea And Vomiting Radiology Results: ITS Impressions Chest/Abdomen/Pelvis CTA 11/20/24 05:54 IMPRESSION: 1. No pulmonary embolus. 2. Small right pleural effusion. 3. Cirrhosis of the liver portal venous hypertension. 4. Small volume of ascites. Venous Doppler Study 11/20/24 16:25 IMPRESSION: Noncompressible posterior tibial vein suggestive of deep vein thrombosis. Labs Labs: Laboratory Results - last 24 hr 11/21/24 11/22/24 11:35 05:18 WBC 3.4 L RBC 2.66 L Hgb 8.0 L 7.9 L Hct 25.5 L 25.3 L MCV 95.1 MCH 29.7 MCHC 31.2 L RDW 16.5 H Plt Count 86 L MPV 11.9 H Immature Gran % (Auto) 0.6 H Neut % (Auto) 61.0 Lymph % (Auto) 25.8 [place] % (Auto) 8.8 H Eos % (Auto) 3.5 Baso % (Auto) 0.3 Lymph # (Auto) 0.88 L [facility] # (Auto) 0.3 Eos # (Auto) 0.1 Baso # (Auto) 0.0 Abs Immat Gran (auto) 0.02 Absolute Neuts (auto) 2.1 Absolute Nucleated RBC 0.000 Nucleated RBC % 0.0 % Immature Plt Fraction 6.0 Sodium 136 L Potassium 4.4 Chloride 106 Carbon Dioxide 27 Anion Gap 3 L BUN 25 H Creatinine 0.77 Estim Creat Clear Calc 48 Estimated GFR > 60 Glucose 99 Calcium 8.9 Total Bilirubin 0.8 AST 31 ALT 20 Alkaline Phosphatase 72 Total Protein 5.0 L Albumin 2.5 L Quality VTE Prophylaxis VTE prophylaxis: mechanical ordered
--- NOTE | 2024-11-22 08:33 | P.PNIM_ITS ---
Progress Note: A&P Assessment and Plan (1) Anemia: Code(s): D64.9 - Anemia, unspecified Status: Acute Assessment and Plan: The Patient lives alone and uses a walker at home for ambulation. PMHX of asthma, diverticulitis, diabetes, hypertension, GERD, cirrhosis, and leukemia. The Patient reports she was found to have low HgB about 8-9 months ago and underwent a biopsy with .She reports every weak on Saturday, she gets shots (not sure if it is either IV iron infusion or PRBC). Last Saturday, she did not receive the shot due to her HgB was 7. Unfortunately, in the subsequent days, she felt very weak. She went to the Heme/Onc clinic and received 1 U PRBC ? but still felt too tired, and her peykiqel-mz-jnc visited her home on Saturday and took her BP, which was very low. The Patient then came to [place] ED. Of note, the Patient follows up with for cirrhosis of the liver with portal venous hypertension. During this admission, patient GI was consulted due to low hemoglobin and, on 11/20/2024, underwent EGD, which shows no esophageal varices. Severe diffuse gastritis was seen in the fundus, in the body of the stomach, and the antrum. Evidence of portal hypertensive changes with mo st like pattern diffusely and marked friability. No active bleeding, no ulcers or erosions. The Patient had an endoscopy on 05/05/2024, which shows the same finding of portal hypertensive gastropathy and gastritis. I discussed this with the meal grinder tender, who reported the only difference between the recent one and the endoscopy performed on 05/05 2024 was the portal hypertensive changes with marked friability, possibly due to Eliquis. Patient last colonoscopy was performed on 02/12/2024 which shows diverticulosis without perforation or abscess without bleeding, colonic polyp, internal hemorrhoids. Today patient received 2 units of PRBC, and her hemoglobin is 8. The Patient reports she was diagnosed with DVT on Rt leg on Oct 14 and on Eliquis. Will consult Hematology/Oncology and surgery for IVC placement. Even though IVC placement can only prevent the clotted traveling from the extremities to the lungs, the patient still has a risk of pulmonary embolism. If IVC placement is performed, the patient will need her IVC removed in 2 to 3 months. The Patient probably has MDS. Patient with history of Cirrhosis HGb appears around mid 7's on previous admission. Patient gets transfusions O/P with Oncology last transfusion 11/18. Recently started on eliquis for DVT 7 days prior * CTA: cirrhosis of the liver with portal venous hypertension/ no ascites/ small right pleural effusion * HGB 6.1 POA * Occult positive * f/U after 1 unit PRBC 6.9 * Transfused 2 unit from ED and 3rd given on floor * H&H Q6HR * GI consulted and follows with Dr. Mccallum 05/2024 * In ED octreotide administered * Protonix 80 mg IV push in the ED * Resumed IVP protonix BID * Last EGD 01/2024: with gastritis, no varices, colonoscopy with small polyps removed * 11/20/2024 underwent EGD which shows no esophageal varices. Severe diffuse gastritis was seen in the fundus, in the body of the stomach, and in the antrum. Evidence of portal hypertensive changes with most like pattern diffusely and marked friability. (2) Thrombocytopenia: Code(s): D69.6 - Thrombocytopenia, unspecified Status: Acute Assessment and Plan: HX of thrombocytopenia follows with website developer in [place] for Leukemia treatment * 132 POA * Trend * Transfuse FFP <20 * Likely related to Cirrhosis (3) Cirrhosis: Code(s): K74.60 - Unspecified cirrhosis of liver Status: Chronic Assessment and Plan: * SHEA * Previously no HX of ascites but current CT showing small ascites * had referral to [facility] hepatology * liver enzyme within normal limits (4) Ascites: Code(s): R18.8 - Other ascites Status: Acute Assessment and Plan: * SEE Above #3 (5) Gastroesophageal reflux disease: Qualifiers: Esophagitis presence: without esophagitis Qualified Code(s): K21.9 - Gastro-esophageal reflux disease without esophagitis Code(s): K21.9 - Gastro-esophageal reflux disease without esophagitis Status: Acute Assessment and Plan: * Protonix BID IVP (6) Essential hypertension: Code(s): I10 - Essential (primary) hypertension Status: Acute Assessment and Plan: * Hypotensive on admission hold lisinopril until BP tolerates * BP per unit protocol (7) NED (acute kidney injury): Code(s): N17.9 - Acute kidney failure, unspecified Status: Acute Assessment and Plan: * Likely secondary to Anemia and dehydration * IV fluids * 2 units PRBC * Cr 1.30/BUN 58 POA Subjective Date/time seen: 11/22/24 08:33 Interval history: Interval Hx: The Patient lives alone and uses a walker at home for ambulation. PMHX of asthma, diverticulitis, diabetes, hypertension, GERD, cirrhosis, and leukemia. The Patient reports she was found to have low HgB about 8-9 months ago and underwent a biopsy with .She reports every weak on Saturday, she gets shots (not sure if it is either IV iron infusion or PRBC). Last Saturday, she did not receive the shot due to her HgB was 7. Unfortunately, in the subsequent days, she felt very weak. She went to the Heme/Onc clinic and received 1 U PRBC ? but still felt too tired, and her cbuueuly-aa-mtk visited her home on Saturday and took her BP, which was very low. The Patient then came to [place] ED. Of note, the Patient follows up with for cirrhosis of the liver with portal venous hypertension. During this admission, patient GI was consulted due to low hemoglobin and, on 11/20/2024, underwent EGD, which shows no esophageal varices. Severe diffuse gastritis was seen in the fundus, in the body of the stomach, and the antrum. Evidence of portal hypertensive changes with most like pattern diffusely and marked friability. No active bleeding, no ulcers or erosions. The Patient had an endoscopy on 05/05/2024, which shows the same finding of portal hypertensive gastropathy and gastritis. I discussed this with the meal grinder tender, who reported the only difference between the recent one and the endoscopy performed on 05/05 2024 was the portal hypertensive changes with marked friability, possibly due to Eliquis. Patient last colonoscopy was performed on 02/12/2024 which shows diverticulosis without perforation or abscess without bleeding, colonic polyp, internal hemorrhoids.Today patient received 2 units of PRBC, and her hemoglobin is 8. The Patient reports she was diagnosed with DVT on Rt leg on Oct 14 and on Eliquis. Will consult Hematology/Oncology and surgery for IVC placement. Even though IVC placement can only prevent the clotted traveling from the extremities to the lungs, the patient still has a risk of pulmonary embolism. If IVC placement is performed, the patient will need her IVC removed in 2 to 3 months. The Patient probably has MDS. 11/22: Pending surgery consult for IVC placement. Consulted Heme-Onc as well for possible MDS. Review of Systems Review of Systems: All systems reviewed & are unremarkable except as noted in HPI and below Exam Narrative: Pleasant female GI: Other: Obese Objective Data Vital Signs Vital Signs: Vital Signs - 24 hr 11/21/24 10:00 11/21/24 11:47 11/21/24 12:00 Temperature 97.7 F Pulse Rate 74 77 80 Respiratory Rate 20 Blood Pressure 106/44 L Pulse Oximetry 96 Oxygen Delivery 11/21/24 14:00 11/21/24 16:00 11/21/24 16:00 Temperature 97.7 F Pulse Rate 82 73 77 Respiratory Rate 20 Blood Pressure 100/37 L Pulse Oximetry 99 Oxygen Delivery 11/21/24 16:24 11/21/24 20:00 11/21/24 20:00 Temperature Pulse Rate 75 70 73 Respiratory Rate 16 16 Blood Pressure 102/53 L Pulse Oximetry 97 Oxygen Delivery Room Air 11/21/24 20:20 11/21/24 22:00 11/22/24 00:00 Temperature 98.6 F 99.3 F Pulse Rate 70 71 83 Respiratory Rate 16 16 Blood Pressure 114/50 L 107/51 L Pulse Oximetry 97 96 Oxygen Delivery 11/22/24 04:00 11/22/24 05:09 Temperature 97.5 F L Pulse Rate 69 63 Respiratory Rate 20 Blood Pressure 114/57 L Pulse Oximetry 97 Oxygen Delivery Intake/Output Intake/Output: Intake & Output 11/19/24 11/20/24 11/21/24 11/22/24 23:59 23:59 23:59 23:59 Intake Total 4010 1090 500 Output Total 1600 1200 Balance 2410 -110 500 Meds/Results Medications: Active Medications Generic Name Dose Route Start Last Admin Trade Name Freq PRN Reason Stop Dose Admin Acetaminophen 650 mg 11/20/24 09:26 11/21/24 09:14 Acetaminophen 325 Mg Tablet PO 650 mg Q4H PRN Administration Mild Pain (1-3) or Fever Hydrocodone Bitart/Acetaminophen 1 tab 11/20/24 09:26 11/22/24 02:46 Hydrocodone/Acetaminophen (*Crx) 5-325 Mg Tablet PO 1 tab Q4H PRN Administration Moderate Pain (4-6) Morphine Sulfate 2 mg 11/20/24 06:22 Morphine Sulfate (*Crx) 2 Mg/Ml Inj IV PUSH Q2H PRN Pain Rated 7-10 Naloxone HCl 0.1 mg 11/20/24 09:26 Naloxone Hcl 0.4 Mg/Ml Vial IV PUSH Q2M PRN Opiate Reversal Ondansetron HCl 4 mg 11/20/24 09:26 Ondansetron Inj 4 Mg/2 Ml Vial IV PUSH Q6H PRN Nausea And Vomiting Radiology Results: ITS Impressions Chest/Abdomen/Pelvis CTA 11/20/24 05:54 IMPRESSION: 1. No pulmonary embolus. 2. Small right pleural effusion. 3. Cirrhosis of the liver portal venous hypertension. 4. Small volume of ascites. Venous Doppler Study 11/20/24 16:25 IMPRESSION: Noncompressible posterior tibial vein suggestive of deep vein thrombosis. Labs Labs: Laboratory Results - last 24 hr 11/21/24 11/22/24 11:35 05:18 WBC 3.4 L RBC 2.66 L Hgb 8.0 L 7.9 L Hct 25.5 L 25.3 L MCV 95.1 MCH 29.7 MCHC 31.2 L RDW 16.5 H Plt Count 86 L MPV 11.9 H Immature Gran % (Auto) 0.6 H Neut % (Auto) 61.0 Lymph % (Auto) 25.8 [place] % (Auto) 8.8 H Eos % (Auto) 3.5 Baso % (Auto) 0.3 Lymph # (Auto) 0.88 L [place] # (Auto) 0.3 Eos # (Auto) 0.1 Baso # (Auto) 0.0 Abs Immat Gran (auto) 0.02 Absolute Neuts (auto) 2.1 Absolute Nucleated RBC 0.000 Nucleated RBC % 0.0 % Immature Plt Fraction 6.0 Sodium 136 L Potassium 4.4 Chloride 106 Carbon Dioxide 27 Anion Gap 3 L BUN 25 H Creatinine 0.77 Estim Creat Clear Calc 48 Estimated GFR > 60 Glucose 99 Calcium 8.9 Total Bilirubin 0.8 AST 31 ALT 20 Alkaline Phosphatase 72 Total Protein 5.0 L Albumin 2.5 L Quality VTE Prophylaxis VTE prophylaxis: mechanical ordered Hospitalist MIPS Advance Care Plan I have confirmed that the patient's Advanced Care Plan is present, code status is documented, or surrogate decision maker is listed in patient medical record.: Yes Medication Reconciliation I have utilized all available resources to obtain, update and review the patients current medications (includes all prescriptions, OTC, herbals, cannabis, and nutritional supplements).: Yes
--- NOTE | 2024-11-22 13:54 | PM.CNGS ---
Assessment and Plan Assessment and plan (1) Deep vein thrombosis of calf: Qualifiers: Chronicity: acute Laterality: right Qualified Code(s): I82.4Z1 - Acute embolism and thrombosis of unspecified deep veins of right distal lower extremity Code(s): I82.4Z9 - Acute embolism and thrombosis of unspecified deep veins of unspecified distal lower extremity Status: Acute Assessment and Plan: Patient has an isolated right posterior tibial calf pain DVT. Anticoagulation has been stopped for concerns of bleeding from portal hypertension and gastropathy listed below. Calf vein DVT is a different entity than popliteal or more proximal DVT in that the risk of pulmonary embolism is very low, often cited as 1-5%. Vena cava filters have a failure rate in nearly the same range. I will go ahead and order a D-dimer and coagulation studies on the patient. She may have underlying coagulopathy the simply based on her cirrhosis. Reviewing [facility]'s most recent management recognizes this dilemma of whether to place vena cava filters for isolated calf vein DVT. It is based on the propensity of the calf vein DVT to propagate. They recommend surveillance venous Doppler studies once a week for 2 weeks. If there is no evidence of the calf pain reaching the popliteal vein, recommendations are to leave the isolated calf vein DVT on treated in patients that have contraindications to anticoagulation. She has already had 2 venous Dopplers, one on 11/11/2024 and the 2nd on 11/20/2024. Neither of these tests showed any sign of propagation of the posterior tibial DVT. They also showed no other signs of DVT. I would repeat a 3rd venous Doppler on 11/25/2024, again looking for evidence of propagation. If none is seen, the calf vein DVT can be safely left untreated. No vena cava filter would be needed nor would at a coagulation. Most calf vein DVTs due resolve on their own. Thank you for asking me to see this interesting patient in consultation. I did explain the need for another venous Doppler and the likelihood that the calf vein would not need treatment to the patient. (2) Portal hypertensive gastropathy: Code(s): K76.6 - Portal hypertension; K31.89 - Other diseases of stomach and duodenum Status: Chronic (3) Melena: Code(s): K92.1 - Melena Status: Acute (4) Anemia: Qualifiers: Anemia type: iron deficiency Iron deficiency anemia type: chronic blood loss Qualified Code(s): D50.0 - Iron deficiency anemia secondary to blood loss (chronic) Code(s): D64.9 - Anemia, unspecified Status: Acute (5) Pancytopenia: Code(s): D61.818 - Other pancytopenia Status: Chronic (6) Cirrhosis: Qualifiers: Hepatic cirrhosis type: unspecified hepatic cirrhosis Ascites presence: without ascites Qualified Code(s): K74.60 - Unspecified cirrhosis of liver Code(s): K74.60 - Unspecified cirrhosis of liver Status: Chronic History of Present Illness Consult details Consult date: 11/22/24 Reason for consult: other (Possible IVC filter) Requesting physician: Geronimo Padilla MD Narrative: Was asked to evaluate this patient for a possible retrievable inferior vena cava filter. Her history and current admission have been reviewed. Basically she came to the emergency room and was evaluated at 2:00 a.m. on 11/20/2024. She complained of weakness shortness of breath and low blood pressure. She has an unknown type of leukemia which is treated by an oncologist at another facility. She apparently has been getting regular transfusions on a near weekly basis. Her last transfusion was , 11/19/2024. Patient also noted black tar E diarrheal stools. She had an EGD 2 days ago which showed evidence of severe portal hypertensive gastropathy throughout her stomach. There was no evidence of bleeding at the time of EGD but this was felt most likely to be the cause of her tarry, guaiac-positive stools. Patient has been given 2 units of packed cells on 11/20/2024 and her H&H have been pretty stable at 8 and 25. The patient has also had 3 venous Doppler studies of her right lower extremity, 1 was in September, the other to have been within the last week. The 1st venous Doppler study was for right calf pain and was ordered by her primary care provider. This was done on 09/29/2024 and showed no evidence of DVT at all. A 2nd venous Doppler was done on 11/11/2024. This was also ordered by her primary care physician and was for right leg swelling. This showed an isolated posterior tibial DVT. Third venous Doppler was performed on 11/20/2024 and also suggested an isolated posterior tibial or calf vein DVT. No evidence of extension of the calf vein DVT was noted. Patient was started on apixaban after her initial positive study of 11/11/2024. Patient reports that her right calf was hurting but after just a few days of the apixaban, her right leg has stopped being painful. It is not painful at the present time either. Now that she has been admitted with anemia and potential for persistent bleeding from portal gastropathy, her apixaban has been stopped. I have been consulted to evaluate for the need for vena cava filter, preferably a retrievable filter, verses no treatment for the isolated calf vein DVT. Review of Systems Review of Systems: All systems reviewed & are unremarkable except as noted in HPI and below (HPI) [facility] Past Medical History Medical History Leukemia [place] Adenomatous colon polyp Thrombocytopenia Colon cancer screening Pancytopenia Cirrhosis Abnormal laboratory test Diverticulosis Pancreatitis gallstone Anxiety Gastroesophageal reflux disease DEJA (obstructive sleep apnea) No longer on CPAP after 100 lb weight loss Asthma Hypercholesterolemia Diabetes Hemoglobin A1c 5.26 February 2020 Essential hypertension Psoriasis Surgical History Surgical History History of colonoscopy with polypectomy History of total left knee replacement (10/2019) Hx of hysterectomy Due to uterine cancer History of cholecystectomy Family History Family History Father Asthma Mother Hypertension Diabetes mellitus Acute myocardial infarction Sibling End-stage renal disease on hemodialysis sister COPD (chronic obstructive pulmonary disease) brother and sister Acute myocardial infarction 2 brothers Renal cancer sister Social History Social History Social History: She has 2 sons. 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 patient is a lifelong nonsmoker. She does not use any alcohol marijuana illicit drugs. The patient desires to be a full code. Her oldest son is the durable power claim attorney for healthcare. Code status: Full code Surrogate decision maker: Oldest son Smoking status: Never smoker Second hand tobacco smoke exposure: No Alcohol intake: never Substance use: never Substance use type: does not use Do You Feel Safe in your Home?: Yes Lack of Transportation: No Lack of Food: Never True Current Housing: I Have Housing Concerned About Future Housing: No Difficulty Paying Gas/Electric Bills: No Difficulty Paying for Meds: No Currently Unemployed: No Education: Bachelor's Degree Difficulty w/ Childcare or Family Care: No Living arrangements: alone Additional living arrangements comments: She lives in her own home. She has been since 1989 Occupation/Education: retired Spiritual care concerns: No Agree to blood products: Yes Meds Home Medications and Allergies Home Medications ?Medication ?Instructions ?Recorded ?Confirmed ?Type cyanocobalamin (vitamin B-12) 1,000 mcg PO DAILY 10/08/19 11/20/24 History 1,000 mcg capsule furosemide 20 mg tablet 20 mg PO DAILY 10/08/19 11/20/24 History fenofibrate 160 mg tablet 145 mg PO DAILY 05/18/20 11/20/24 History citalopram 10 mg tablet 10 mg PO DAILY 03/13/21 11/20/24 History lisinopril 20 mg tablet 40 mg PO QHS 03/13/21 11/20/24 History pantoprazole 40 mg tablet,delayed 40 mg PO QAM 03/13/21 11/20/24 History release albuterol sulfate 90 mcg/actuation 2 puff inhalation PRN PRN 06/22/21 11/20/24 Rx aerosol inhaler (Ventolin HFA) Shortness Of Breath #8.5 grams lidocaine 5 % topical patch 1 patch topical DAILY PRN pain #15 06/12/24 11/20/24 Rx ea apixaban 5 mg (74 tabs) tablets in See Rx Instructions .Route .COMPLEX 11/20/24 11/20/24 History a dose pack (Gradible (formerly gradsavers) DVT-PE Treat 30D Start) atorvastatin 80 mg tablet 80 mg PO DAILY 11/20/24 11/20/24 History fluticasone propionate 50 2 spray intranasal QAM PRN 11/20/24 11/20/24 History mcg/actuation nasal Allergies spray,suspension furosemide 40 mg tablet 40 mg PO DAILY 11/20/24 11/20/24 History Allergies Allergy/AdvReac Type Severity Reaction Status Date / Time No Known Allergies Allergy Verified 11/20/24 13:48 Vital Signs Vital Signs - 24 hr 11/21/24 14:00 11/21/24 16:00 11/21/24 16:00 Temperature 36.5 C Pulse Rate 82 73 77 Respiratory Rate 20 Blood Pressure 100/37 L Pulse Oximetry 99 Oxygen Delivery 11/21/24 16:24 11/21/24 20:00 11/21/24 20:00 Temperature Pulse Rate 75 70 73 Respiratory Rate 16 16 Blood Pressure 102/53 L Pulse Oximetry 97 Oxygen Delivery Room Air 11/21/24 20:20 11/21/24 22:00 11/22/24 00:00 Temperature 37.0 C 37.4 C Pulse Rate 70 71 83 Respiratory Rate 16 16 Blood Pressure 114/50 L 107/51 L Pulse Oximetry 97 96 Oxygen Delivery 11/22/24 04:00 11/22/24 05:09 Temperature 36.4 C L Pulse Rate 69 63 Respiratory Rate 20 Blood Pressure 114/57 L Pulse Oximetry 97 Oxygen Delivery Exam Const: General: comfortable, no acute distress, alert and awake Orientation/consciousness: patient oriented x3 and No confusion HENMT: Head: normocephalic and atraumatic Mouth: Yes Normal oral and palatal mucosa present Eyes: Conjunctivae: conjunctivae normal Pupils: Equal, round and reactive pupils present EOM: EOMs intact bilaterally Neck: Neck: normal visual inspection, no lymphadenopathy and nontender GI: Inspection: non-distended and no visible herniation GI Palp: Yes Soft to palpation and No Tenderness to palpation present (GI) Skin: Lesions: no lesions Rashes: no rashes Neuro: General: no focal motor deficits and CN's II-XI intact bilaterally Cranial nerves: Yes Equal, round and reactive pupils present, Yes Bilaterally intact EOM present, Yes facial symmetry and Yes Midline tongue present Speech: normal speech Motor exam (neuro): 5/5 motor strength present throughout and Motor abnormalities not present Extrem: General: no clubbing, cyanosis or edema and edema Right lower extremity: lower leg Details: normal to inspection and no edema; no tenderness and no localized swelling Left lower extremity: lower leg Details: normal to inspection and no edema; no tenderness and no localized swelling Psych: Affect: normal affect Thought process: Normal thought process present Insight: Good insight present (Psych) Results Labs 11/22/24 05:18 11/22/24 05:18 Labs: Abnormal lab results 11/22/24 Range/Units 05:18 WBC 3.4 L (4.5-10.0) K/mm3 RBC 2.66 L (4.2-5.4) M/mm3 Hgb 7.9 L (12.0-15.0) g/dL Hct 25.3 L (37.0-47.0) % MCHC 31.2 L (32-36) g/dl RDW 16.5 H (11.5-14.5) % Plt Count 86 L (150-375) k/mm3 MPV 11.9 H (7.4-10.4) fl Immature Gran % (Auto) 0.6 H (0-0.5) % [place] % (Auto) 8.8 H (2.6-8.5) % Lymph # (Auto) 0.88 L (0.9-3.2) K/mm3 Sodium 136 L (137-145) mmol/L Anion Gap 3 L (4-12) mmol/L BUN 25 H (7-17) mg/dL Total Protein 5.0 L (6.3-8.2) g/dL Albumin 2.5 L (3.5-5.1) g/dL Diabetes panel 11/22/24 Range/Units 05:18 Sodium 136 L (137-145) mmol/L Potassium 4.4 (3.4-5.0) mmol/L Chloride 106 (98-107) mmol/L Carbon Dioxide 27 (22-30) mmol/L BUN 25 H (7-17) mg/dL Creatinine 0.77 (0.7-1.0) mg/dL Glucose 99 (65-110) mg/dL Calcium 8.9 (8.4-10.2) mg/dL AST 31 (14-36) U/L ALT 20 (6-35) U/L Alkaline Phosphatase 72 (38-126) U/L Total Protein 5.0 L (6.3-8.2) g/dL Albumin 2.5 L (3.5-5.1) g/dL Calcium panel 11/22/24 Range/Units 05:18 Calcium 8.9 (8.4-10.2) mg/dL Albumin 2.5 L (3.5-5.1) g/dL Pituitary panel 11/22/24 Range/Units 05:18 Sodium 136 L (137-145) mmol/L Potassium 4.4 (3.4-5.0) mmol/L Chloride 106 (98-107) mmol/L Carbon Dioxide 27 (22-30) mmol/L BUN 25 H (7-17) mg/dL Creatinine 0.77 (0.7-1.0) mg/dL Glucose 99 (65-110) mg/dL Calcium 8.9 (8.4-10.2) mg/dL Adrenal panel 11/22/24 Range/Units 05:18 Sodium 136 L (137-145) mmol/L Potassium 4.4 (3.4-5.0) mmol/L Chloride 106 (98-107) mmol/L Carbon Dioxide 27 (22-30) mmol/L BUN 25 H (7-17) mg/dL Creatinine 0.77 (0.7-1.0) mg/dL Glucose 99 (65-110) mg/dL Calcium 8.9 (8.4-10.2) mg/dL Total Bilirubin 0.8 (0.2-1.3) mg/dL AST 31 (14-36) U/L ALT 20 (6-35) U/L Alkaline Phosphatase 72 (38-126) U/L Total Protein 5.0 L (6.3-8.2) g/dL Albumin 2.5 L (3.5-5.1) g/dL All other labs normal.
[2024-11-22 17:25] LABS: Hematocrit 25.1 % (37.0-47.0); Hemoglobin 7.8 g/dL (12.0-15.0)
[2024-11-22] MEDS: FUROSEMIDE 40 MG TABLET PO (17:41)
[2024-11-22] MEDS: CYANOCOBALAMIN 1,000 MCG TABLET 1000 MCG PO (17:41)
[2024-11-22] MEDS: CITALOPRAM HYDROBROMIDE 10 MG TABLET PO (17:41)
[2024-11-22] MEDS: PANTOPRAZOLE 40 MG TABLET PO (17:41)
[2024-11-22] MEDS: lisinopriL 20 MG TABLET 40 MG PO (20:42)
[2024-11-23] VITALS (10 sets, daily range): BP systolic 102–118; BP diastolic 51–54; PULSE 67–97; RESP 14–18; TEMP 36.6–37.2; O2SAT 97–98
[2024-11-23 05:40] LABS: Basophils Percent Auto 0.3 % (0.2-1.2); Eosinophils Absolute Auto 0.1 K/mm3 (0-0.3); Hematocrit 26.7 % (37.0-47.0); Hemoglobin 8.2 g/dL (12.0-15.0); Immature Granulocyte Absolute 0.01 K/mm3 (0.00-0.031); Immature Granulocyte Percent A 0.3 % (0-0.5); Immature Platelet Fraction Pct 7.1 % (0.9-11.2); Lymphocytes Absolute Auto 0.73 K/mm3 (0.9-3.2); Lymphocytes Percent Auto 21.9 % (18.3-44.2); Mean Corpuscular HGB Conc 30.7 g/dl (32-36); Mean Corpuscular Volume 94.3 fl (80-100); Mean Platelet Volume 11.9 fl (7.4-10.4); Monocytes Absolute Auto 0.3 K/mm3 (0.1-0.6); Monocytes Percent Auto 8.7 % (2.6-8.5); Neutrophils Absolute Auto 2.2 K/mm3 (1.3-6.7); Neutrophils Percent Auto 65.8 % (45.5-73.1); Platelet Count Result 99 k/mm3 (150-375); Red Blood Count 2.83 M/mm3 (4.2-5.4); White Blood Count 3.3 K/mm3 (4.5-10.0)
[2024-11-23 05:50] LABS: INR 1.2; Prothrombin Time 15.9 Seconds (11.1-14.7)
[2024-11-23 05:51] LABS: Partial Thromboplastin Time 34.9 Seconds (22.3-36.8)
[2024-11-23 06:00] LABS: Alanine Aminotransferase 22 U/L (6-35); Albumin Level 2.6 g/dL (3.5-5.1); Alkaline Phosphatase 75 U/L (38-126); Anion Gap 0 mmol/L (4-12); Aspartate Amino Transferase 37 U/L (14-36); Bilirubin,Total 1.2 mg/dL (0.2-1.3); Blood Urea Nitrogen 22 mg/dL (7-17); Carbon Dioxide 30 mmol/L (22-30); Chloride 103 mmol/L (98-107); Estimated CRCL calculation 45 ml/min; Estimated Glomerular Filt Rate > 60; Glucose 83 mg/dL (65-110); Potassium 4.2 mmol/L (3.4-5.0); Sodium 133 mmol/L (137-145)
[2024-11-23 07:38] LABS: D Dimer 1.52 ug/mL (<0.48)
--- NOTE | 2024-11-23 08:05 | P.PNIM_ITS ---
Progress Note: A&P Assessment and Plan (1) Anemia: Qualifiers: Anemia type: iron deficiency Iron deficiency anemia type: chronic blood loss Qualified Code(s): D50.0 - Iron deficiency anemia secondary to blood loss (chronic) Code(s): D64.9 - Anemia, unspecified Status: Acute Assessment and Plan: The Patient lives alone and uses a walker at home for ambulation. PMHX of asthma, diverticulitis, diabetes, hypertension, GERD, cirrhosis, and leukemia. The Patient reports she was found to have low HgB about 8-9 months ago and underwent a biopsy with .She reports every weak on Saturday, she gets shots (not sure if it is either IV iron infusion or PRBC). Last Saturday, she did not receive the shot due to her HgB was 7. Unfortunately, in the subsequent days, she felt very weak. She went to the Heme/Onc clinic and received 1 U PRBC ? but still felt too tired, and her wywqoefr-or-pzf visited her home on Saturday and took her BP, which was very low. The Patient then came to [place] [facility]. Of note, the Patient follows up with for cirrhosis of the liver w ith portal venous hypertension. During this admission, patient GI was consulted due to low hemoglobin and, on 11/20/2024, underwent EGD, which shows no esophageal varices. Severe diffuse gastritis was seen in the fundus, in the body of the stomach, and the antrum. Evidence of portal hypertensive changes with most like pattern diffusely and marked friability. No active bleeding, no ulcers or erosions. The Patient had an endoscopy on 05/05/2024, which shows the same finding of portal hypertensive gastropathy and gastritis. I discussed this with the hadoop infrastructure architect, who reported the only difference between the recent one and the endoscopy performed on 05/05 2024 was the portal hypertensive changes with marked friability, possibly due to Eliquis. Patient last colonoscopy was performed on 02/12/2024 which shows diverticulosis without perforation or abscess without bleeding, colonic polyp, internal hemorrhoids. Today patient received 2 units of PRBC, and her hemoglobin is 8. The Patient reports she was diagnosed with DVT on Rt leg on Oct 14 and on Eliquis. Will consult Hematology/Oncology and surgery for IVC placement. Even though IVC placement can only prevent the clotted traveling from the extremities to the lungs, the patient still has a risk of pulmonary embolism. If IVC placement is performed, the patient will need her IVC removed in 2 to 3 months. 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 Agrees with the plan not needing anticoagulation for posterior tibial vein thrombosis even though it is a deep vein. Once heme oncologist give the recommendation for anticoagulation and for possible MDS will discuss with patient her options Patient with history of Cirrhosis HGb appears around mid 7's on previous admission. Patient gets transfusions O/P with Oncology last transfusion 11/18. Recently started on eliquis for DVT 7 days prior * CTA: cirrhosis of the liver with portal venous hypertension/ no ascites/ small right pleural effusion * HGB 6.1 POA * Occult positive * f/U after 1 unit PRBC 6.9 * Transfused 2 unit from ED and 3rd given on floor * H&H Q6HR * GI consulted and follows with Dr. Mccallum 05/2024 * In ED octreotide administered * Protonix 80 mg IV push in the ED * Resumed IVP protonix BID * Last EGD 01/2024: with gastritis, no varices, colonoscopy with small polyps removed * 11/20/2024 underwent EGD which shows no esophageal varices. Severe diffuse gastritis was seen in the fundus, in the body of the stomach, and in the antrum. Evidence of portal hypertensive changes with most like pattern diffusely and marked friability. (2) Thrombocytopenia: Code(s): D69.6 - Thrombocytopenia, unspecified Status: Acute Assessment and Plan: HX of thrombocytopenia follows with dental associate in [place] for Leukemia treatment * 132 POA * Trend * Transfuse FFP <20 * Likely related to Cirrhosis (3) Cirrhosis: Qualifiers: Ascites presence: without ascites Hepatic cirrhosis type: unspecified hepatic cirrhosis Qualified Code(s): K74.60 - Unspecified cirrhosis of liver Code(s): K74.60 - Unspecified cirrhosis of liver Status: Chronic Assessment and Plan: * SHEA * Previously no HX of ascites but current CT showing small ascites * had referral to [facility] hepatology * liver enzyme within normal limits (4) Ascites: Code(s): R18.8 - Other ascites Status: Acute Assessment and Plan: * SEE Above #3 (5) Gastroesophageal reflux disease: Qualifiers: Esophagitis presence: without esophagitis Qualified Code(s): K21.9 - Gastro-esophageal reflux disease without esophagitis Code(s): K21.9 - Gastro-esophageal reflux disease without esophagitis Status: Acute Assessment and Plan: * Protonix BID IVP (6) Essential hypertension: Code(s): I10 - Essential (primary) hypertension Status: Acute Assessment and Plan: * Hypotensive on admission hold lisinopril until BP tolerates * BP per unit protocol (7) NED (acute kidney injury): Code(s): N17.9 - Acute kidney failure, unspecified Status: Acute Assessment and Plan: * Likely secondary to Anemia and dehydration * IV fluids * 2 units PRBC * Cr 1.30/BUN 58 POA Subjective Date/time seen: 11/23/24 08:05 Interval history: Interval Hx: The Patient lives alone and uses a walker at home for ambulation. PMHX of asthma, diverticulitis, diabetes, hypertension, GERD, cirrhosis, and leukemia. The Patient reports she was found to have low HgB about 8-9 months ago and underwent a biopsy with .She reports every weak on Saturday, she gets shots (not sure if it is either IV iron infusion or PRBC). Last Saturday, she did not receive the shot due to her HgB was 7. Unfortunately, in the subsequent days, she felt very weak. She went to the Heme/Onc clinic and received 1 U PRBC ? but still felt too tired, and her ehooagih-op-fxc visited her home on Saturday and took her BP, which was very low. The Patient then came to [place] ED. Of note, the Patient follows up with for cirrhosis of the liver with portal venous hypertension. During this admission, patient GI was consulted due to low hemoglobin and, on 11/20/2024, underwent EGD, which shows no esophageal varices. Severe diffuse gastritis was seen in the fundus, in the body of the stomach, and the antrum. Evidence of portal hypertensive changes with most like pattern diffusely and marked friability. No active bleeding, no ulcers or erosions. The Patient had an endoscopy on 05/05/2024, which shows the same finding of portal hypertensive gastropathy and gastritis. I discussed this with the hadoop infrastructure architect, who reported the only difference between the recent one and the endoscopy performed on 05/05 2024 was the portal hypertensive changes with marked friability, possibly due to Eliquis. Patient last colonoscopy was performed on 02/12/2024 which shows diverticulosis without perforation or abscess without bleeding, colonic polyp, internal hemorrhoids.Today patient received 2 units of PRBC, and her hemoglobin is 8. The Patient reports she was diagnosed with DVT on Rt leg on Oct 14 and on Eliquis. Will consult Hematology/Oncology and surgery for IVC placement. Even though IVC placement can only prevent the clotted traveling from the extremities to the lungs, the patient still has a risk of pulmonary embolism. If IVC placement is performed, the patient will need her IVC removed in 2 to 3 months. The Patient probably has MDS. 11/23: Discussed with surgery. Agrees with the plan not needing anticoagulation or IVC for posterior tibial vein thrombosis even though it is a deep vein. Once heme oncologist give the recommendation for anticoagulation and for possible MDS will discuss with patient her options Review of Systems Review of Systems: All systems reviewed & are unremarkable except as noted in HPI and below Exam Narrative: Pleasant female GI: Other: Obese Objective Data Vital Signs Vital Signs: Vital Signs - 24 hr 11/22/24 12:00 11/22/24 14:00 11/22/24 16:00 Temperature 97.0 F L Pulse Rate 88 78 72 Respiratory Rate 18 Blood Pressure 128/50 L Pulse Oximetry 99 Oxygen Delivery 11/22/24 19:31 11/22/24 20:00 11/22/24 20:00 Temperature 98.2 F Pulse Rate 79 79 79 Respiratory Rate 18 18 Blood Pressure 121/59 L Pulse Oximetry 92 92 Oxygen Delivery Room Air 11/23/24 00:00 11/23/24 04:00 11/23/24 04:46 Temperature 98.3 F Pulse Rate 67 70 68 Respiratory Rate 18 Blood Pressure 110/53 L Pulse Oximetry 98 Oxygen Delivery Intake/Output Intake/Output: Intake & Output 11/20/24 11/21/24 11/22/24 11/23/24 23:59 23:59 23:59 23:59 Intake Total 4010 1090 1580 350 Output Total 1600 1200 Balance 2410 -110 1580 350 Meds/Results Medications: Active Medications Generic Name Dose Route Start Last Admin Trade Name Freq PRN Reason Stop Dose Admin Acetaminophen 650 mg 11/20/24 09:26 11/21/24 09:14 Acetaminophen 325 Mg Tablet PO 650 mg Q4H PRN Administration Mild Pain (1-3) or Fever Hydrocodone Bitart/Acetaminophen 1 tab 11/20/24 09:26 11/22/24 20:42 Hydrocodone/Acetaminophen (*Crx) 5-325 Mg Tablet PO 1 tab Q4H PRN Administration Moderate Pain (4-6) Albuterol 2 puff 11/22/24 09:04 Albuterol Sulfate (*Sp) Aerosol 1 Puff INHALATION PRN PRN Shortness Of Breath Atorvastatin Calcium 80 mg 11/22/24 09:00 11/22/24 17:32 Atorvastatin 40 Mg Tablet PO Not Given DAILY [facility] Citalopram Hydrobromide 10 mg 11/22/24 09:00 11/22/24 17:41 Citalopram Hydrobromide 10 Mg Tablet PO 10 mg DAILY [facility] Administration Cyanocobalamin 1,000 mcg 11/22/24 09:00 11/22/24 17:41 Cyanocobalamin 1,000 Mcg Tablet PO 1,000 mcg DAILY [facility] Administration Fenofibrate 145 mg 11/22/24 09:00 11/22/24 17:32 Fenofibrate Nanocrystallized 145 Mg Tablet PO Not Given DAILY [facility] Fluticasone Propionate 2 spray 11/22/24 09:04 Fluticasone Propionate 0.05% Na Spr 16 Gm Btl (*Bkc) NASAL QAM PRN Allergies Furosemide 40 mg 11/22/24 09:00 11/22/24 17:41 Furosemide 40 Mg Tablet PO 40 mg DAILY [facility] Administration Lidocaine 1 patch 11/22/24 09:04 Lidocaine 5% Patch TOPICAL DAILY PRN pain Lisinopril 40 mg 11/22/24 21:00 11/22/24 20:42 Lisinopril 20 Mg Tablet PO 40 mg QHS [facility] Administration Morphine Sulfate 2 mg 11/20/24 06:22 Morphine Sulfate (*Crx) 2 Mg/Ml Inj IV PUSH Q2H PRN Pain Rated 7-10 Naloxone HCl 0.1 mg 11/20/24 09:26 Naloxone Hcl 0.4 Mg/Ml Vial IV PUSH Q2M PRN Opiate Reversal Ondansetron HCl 4 mg 11/20/24 09:26 Ondansetron Inj 4 Mg/2 Ml Vial IV PUSH Q6H PRN Nausea And Vomiting Pantoprazole Sodium 40 mg 11/22/24 09:00 11/22/24 17:41 Pantoprazole 40 Mg Tablet PO 40 mg QAM MARK Administration Radiology Results: ITS Impressions Chest/Abdomen/Pelvis CTA 11/20/24 05:54 IMPRESSION: 1. No pulmonary embolus. 2. Small right pleural effusion. 3. Cirrhosis of the liver portal venous hypertension. 4. Small volume of ascites. Venous Doppler Study 11/20/24 16:25 IMPRESSION: Noncompressible posterior tibial vein suggestive of deep vein thrombosis. Labs Labs: Laboratory Results - last 24 hr 11/22/24 11/23/24 16:53 04:41 WBC 3.3 L RBC 2.83 L Hgb 7.8 L 8.2 L Hct 25.1 L 26.7 L MCV 94.3 MCH 29.0 MCHC 30.7 L RDW 16.0 H Plt Count 99 L MPV 11.9 H Immature Gran % (Auto) 0.3 Neut % (Auto) 65.8 Lymph % (Auto) 21.9 [place] % (Auto) 8.7 H Eos % (Auto) 3.0 Baso % (Auto) 0.3 Lymph # (Auto) 0.73 L [place] # (Auto) 0.3 Eos # (Auto) 0.1 Baso # (Auto) 0.0 Abs Immat Gran (auto) 0.01 Absolute Neuts (auto) 2.2 Absolute Nucleated RBC 0.000 Nucleated RBC % 0.0 % Immature Plt Fraction 7.1 PT 15.9 H INR 1.2 APTT 34.9 D-Dimer 1.52 H Sodium 133 L Potassium 4.2 Chloride 103 Carbon Dioxide 30 Anion Gap 0 L BUN 22 H Creatinine 0.83 Estim Creat Clear Calc 45 Estimated GFR > 60 Glucose 83 Calcium 9.0 Total Bilirubin 1.2 AST 37 H ALT 22 Alkaline Phosphatase 75 Total Protein 5.0 L Albumin 2.6 L Quality VTE Prophylaxis VTE prophylaxis: mechanical ordered Hospitalist MIPS Advance Care Plan I have confirmed that the patient's Advanced Care Plan is present, code status is documented, or surrogate decision maker is listed in patient medical record.: Yes Medication Reconciliation I have utilized all available resources to obtain, update and review the patients current medications (includes all prescriptions, OTC, herbals, cannabis, and nutritional supplements).: Yes
[2024-11-23] MEDS: FUROSEMIDE 40 MG TABLET PO (08:49)
[2024-11-23] MEDS: ATORVASTATIN 40 MG TABLET 80 MG PO (08:49)
[2024-11-23] MEDS: FENOFIBRATE NANOCRYSTALLIZED 145 MG TABLET PO (08:49)
[2024-11-23] MEDS: PANTOPRAZOLE 40 MG TABLET PO (08:49)
[2024-11-23] MEDS: CITALOPRAM HYDROBROMIDE 10 MG TABLET PO (08:49)
[2024-11-23] MEDS: CYANOCOBALAMIN 1,000 MCG TABLET 1000 MCG PO (08:49)
--- NOTE | 2024-11-23 18:13 | P.CONONC_ITS ---
Assessment and Plan Assessment and plan (1) Deep vein thrombosis of calf: Qualifiers: Chronicity: acute Laterality: right Qualified Code(s): I82.4Z1 - Acute embolism and thrombosis of unspecified deep veins of right distal lower extremity Code(s): I82.4Z9 - Acute embolism and thrombosis of unspecified deep veins of unspecified distal lower extremity Status: Acute Assessment and Plan: DVT posterior tibial vein. Patient is the 79-year-old female with history of liver cirrhosis and low-grade myelodysplastic syndrome with been getting Aranesp injection with Dr. Cary on a weekly basis.. Patient has been getting blood transfusion quite frequently as well. Her anemia is most likely not secondary to bleeding but instead secondary to myelodysplastic syndrome. I will check iron studies. There is a small risk of pulmonary embolism with a proximal DVT. I would recommend starting low-dose anticoagulation with Xarelto 10 mg daily as long as platelet counts are more than 50,000 and she has normal iron studies with no further decline in hemoglobin. I also recommended her to follow up with Dr. Cayr for close monitoring. Regarding her MDS she will follow-up with her oncologist as well. I recommended trying other options besides growth factor support as it seems like Aranesp is not controlling her myelodysplastic syndrome related anemia. I have discussed my plan with Dr. De Jesus as well. (2) Normocytic anemia: Code(s): D64.9 - Anemia, unspecified Status: Acute (3) Thrombocytopenia: Code(s): D69.6 - Thrombocytopenia, unspecified Status: Acute HPI Data of Consult Date/Time: 11/23/24 18:13 Requesting Physician: Ton Saeed PA-C Primary Care Provider: Shivam Lombardo, DO Consult Narrative Narrative: Leia Jane is a 79 year old female with history of low-grade myelodysplastic syndrome and liver cirrhosis has been followed by Dr. Cary presented to the ER with generalized weakness low blood pressure and significant anemia. She has been getting Aranesp on a weekly basis and almost getting blood transfusion quite frequently. She has been complaining of tiredness and fatigue but denies any bleeding including melena hematochezia. EGD was performed on November 20 showed gastritis with portal hypertensive gastropathy. Doppler studies revealed thrombosis of the posterior tibial vein. CTA chest showed no evidence [place] [address] with hemoglobin of 8.2 and WBC of 3.3. INR was 1.2 with D-dimer of 1.5 and PTT was normal at 34.9. Review of Systems 2 Review of Systems: Review of system as per HPI otherwise negative FOR[facility]LY [facility], [facility] Past Medical History Medical History Leukemia [place] Adenomatous colon polyp Thrombocytopenia Colon cancer screening Pancytopenia Cirrhosis Abnormal laboratory test Diverticulosis Pancreatitis gallstone Anxiety Gastroesophageal reflux disease DEJA (obstructive sleep apnea) No longer on CPAP after 100 lb weight loss Asthma Hypercholesterolemia Diabetes Hemoglobin A1c 5.26 February 2020 Essential hypertension Psoriasis Surgical History Surgical History History of colonoscopy with polypectomy History of total left knee replacement (10/2019) Hx of hysterectomy Due to uterine cancer History of cholecystectomy Family History Family History Father Asthma Mother Hypertension Diabetes mellitus Acute myocardial infarction Sibling End-stage renal disease on hemodialysis sister COPD (chronic obstructive pulmonary disease) brother and sister Acute myocardial infarction 2 brothers Renal cancer sister Social History Social History Social History: She has 2 sons. 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 patient is a lifelong nonsmoker. She does not use any alcohol marijuana illicit drugs. The patient desires to be a full code. Her oldest son is the durable power real estate attorney for healthcare. Code status: Full code Surrogate decision maker: Oldest son Smoking status: Never smoker Second hand tobacco smoke exposure: No Alcohol intake: never Substance use: never Substance use type: does not use Do You Feel Safe in your Home?: Yes Lack of Transportation: No Lack of Food: Never True Current Housing: I Have Housing Concerned About Future Housing: No Difficulty Paying Gas/Electric Bills: No Difficulty Paying for Meds: No Currently Unemployed: No Education: Bachelor's Degree Difficulty w/ Childcare or Family Care: No Living arrangements: alone Additional living arrangements comments: She lives in her own home. She has been since 1989 Occupation/Education: retired Spiritual care concerns: No Agree to blood products: Yes Meds Home Medications and Allergies Home Medications ?Medication ?Instructions ?Recorded ?Confirmed ?Type cyanocobalamin (vitamin B-12) 1,000 mcg PO DAILY 10/08/19 11/20/24 History 1,000 mcg capsule furosemide 20 mg tablet 20 mg PO DAILY 10/08/19 11/20/24 History citalopram 10 mg tablet 10 mg PO DAILY 03/13/21 11/20/24 History lisinopril 20 mg tablet 20 mg PO QHS 03/13/21 11/22/24 History pantoprazole 40 mg tablet,delayed 40 mg PO QAM 03/13/21 11/20/24 History release albuterol sulfate 90 mcg/actuation 2 puff inhalation PRN PRN 06/22/21 11/20/24 Rx aerosol inhaler (Ventolin HFA) Shortness Of Breath #8.5 grams lidocaine 5 % topical patch 1 patch topical DAILY PRN pain #15 06/12/24 11/20/24 Rx ea apixaban 5 mg (74 tabs) tablets in See Rx Instructions .Route .COMPLEX 11/20/24 11/20/24 History a dose pack ([employer] DVT-PE Treat 30D Start) atorvastatin 80 mg tablet 80 mg PO DAILY 11/20/24 11/20/24 History fluticasone propionate 50 2 spray intranasal QAM PRN 11/20/24 11/20/24 History mcg/actuation nasal Allergies spray,suspension furosemide 40 mg tablet 40 mg PO DAILY 11/20/24 11/20/24 History cholecalciferol (vitamin D3) 25 1,000 unit PO DAILY 11/22/24 11/22/24 History mcg (1,000 unit) capsule docusate sodium 100 mg capsule 100 mg PO DAILY 11/22/24 11/22/24 History (Colace) ferrous sulfate 325 mg (65 mg 325 mg PO DAILY 11/22/24 11/22/24 History iron) tablet (FeroSul) magnesium oxide 400 mg PO DAILY 11/22/24 11/22/24 History Allergies Allergy/AdvReac Type Severity Reaction Status Date / Time No Known Allergies Allergy Verified 11/20/24 13:48 Vital Signs Vital Signs - 24 hr 11/22/24 19:31 11/22/24 20:00 11/22/24 20:00 Temperature 36.8 C Pulse Rate 79 79 79 Respiratory Rate 18 18 Blood Pressure 121/59 L Pulse Oximetry 92 92 Oxygen Delivery Room Air 11/23/24 00:00 11/23/24 04:00 11/23/24 04:46 Temperature 36.8 C Pulse Rate 67 70 68 Respiratory Rate 18 Blood Pressure 110/53 L Pulse Oximetry 98 Oxygen Delivery 11/23/24 08:00 11/23/24 08:50 11/23/24 12:00 Temperature Pulse Rate 97 89 Respiratory Rate Blood Pressure Pulse Oximetry Oxygen Delivery Room Air 11/23/24 14:00 11/23/24 14:36 11/23/24 16:00 Temperature 36.6 C Pulse Rate 80 80 Respiratory Rate 14 Blood Pressure 102/54 L Pulse Oximetry 97 Oxygen Delivery Exam 2 Narrative: Lungs are clear to auscultation bilaterally Cardiovascular regular rate rhythm no murmurs Abdomen soft nontender nondistended Extremities no edema Results Labs 11/23/24 04:41 11/23/24 04:41 Labs: Short CBC 11/23/24 Range/Units 04:41 WBC 3.3 L (4.5-10.0) K/mm3 Hgb 8.2 L (12.0-15.0) g/dL Hct 26.7 L (37.0-47.0) % Plt Count 99 L (150-375) k/mm3 BMP 11/23/24 04:41 Sodium 133 L Potassium 4.2 Chloride 103 Carbon Dioxide 30 BUN 22 H Creatinine 0.83 Glucose 83 Calcium 9.0 Liver Function 11/23/24 Range/Units 04:41 Total Bilirubin 1.2 (0.2-1.3) mg/dL AST 37 H (14-36) U/L ALT 22 (6-35) U/L Alkaline Phosphatase 75 (38-126) U/L Albumin 2.6 L (3.5-5.1) g/dL
[2024-11-23] MEDS: ACETAMINOPHEN 325 MG TABLET 650 MG PO (19:47)
[2024-11-23] MEDS: lisinopriL 20 MG TABLET 40 MG PO (19:47)
[2024-11-23 21:17] LABS: Iron 34 ug/dL (37-170)
[2024-11-23 21:27] LABS: Percent Iron Saturation 11 % (20-50)
[2024-11-24] VITALS (10 sets, daily range): BP systolic 103–120; BP diastolic 41–54; PULSE 71–92; RESP 14–18; TEMP 36.2–36.8; O2SAT 91–97
[2024-11-24 05:23] LABS: Eosinophils Absolute Auto 0.1 K/mm3 (0-0.3); Eosinophils Percent Auto 2.4 % (0-4.4); Hematocrit 26.6 % (37.0-47.0); Hemoglobin 8.1 g/dL (12.0-15.0); Immature Granulocyte Absolute 0.02 K/mm3 (0.00-0.031); Immature Granulocyte Percent A 0.8 % (0-0.5); Immature Platelet Fraction Pct 5.2 % (0.9-11.2); Lymphocytes Absolute Auto 0.54 K/mm3 (0.9-3.2); Lymphocytes Percent Auto 21.2 % (18.3-44.2); Mean Corpuscular HGB Conc 30.5 g/dl (32-36); Mean Corpuscular Hemoglobin 28.7 pg (26-34); Mean Corpuscular Volume 94.3 fl (80-100); Mean Platelet Volume 11.4 fl (7.4-10.4); Monocytes Absolute Auto 0.3 K/mm3 (0.1-0.6); Monocytes Percent Auto 10.2 % (2.6-8.5); Neutrophils Absolute Auto 1.7 K/mm3 (1.3-6.7); Neutrophils Percent Auto 65.4 % (45.5-73.1); Platelet Count Result 94 k/mm3 (150-375); Red Blood Count 2.82 M/mm3 (4.2-5.4); Red Cell Distribution Width 16.2 % (11.5-14.5); White Blood Count 2.6 K/mm3 (4.5-10.0)
[2024-11-24 05:32] LABS: Alanine Aminotransferase 24 U/L (6-35); Albumin Level 2.5 g/dL (3.5-5.1); Alkaline Phosphatase 84 U/L (38-126); Anion Gap 2 mmol/L (4-12); Aspartate Amino Transferase 38 U/L (14-36); Blood Urea Nitrogen 24 mg/dL (7-17); Calcium 9.3 mg/dL (8.4-10.2); Carbon Dioxide 31 mmol/L (22-30); Chloride 101 mmol/L (98-107); Estimated CRCL calculation 42 ml/min; Estimated Glomerular Filt Rate > 60; Glucose 94 mg/dL (65-110); Potassium 4.1 mmol/L (3.4-5.0); Sodium 134 mmol/L (137-145)
[2024-11-24] MEDS: FENOFIBRATE NANOCRYSTALLIZED 145 MG TABLET PO (08:48)
[2024-11-24] MEDS: ATORVASTATIN 40 MG TABLET 80 MG PO (08:48)
[2024-11-24] MEDS: CYANOCOBALAMIN 1,000 MCG TABLET 1000 MCG PO (08:48)
[2024-11-24] MEDS: CITALOPRAM HYDROBROMIDE 10 MG TABLET PO (08:48)
[2024-11-24] MEDS: ACETAMINOPHEN 325 MG TABLET 650 MG PO ×2 (08:49→20:11)
[2024-11-24] MEDS: PANTOPRAZOLE 40 MG TABLET PO (08:49)
[2024-11-24] MEDS: RIVAROXABAN 10 MG TABLET PO (08:49)
[2024-11-24] MEDS: FUROSEMIDE 40 MG TABLET PO (08:49)
[2024-11-24] MEDS: IRON SUCROSE COMPLEX 400 MG, IRON SUCROSE COMPLEX 100 MG in SODIUM CHLORIDE 0.9% IV 250 ML 78.57 MG IVPB (09:34)
--- NOTE | 2024-11-24 12:36 | P.PNIM_ITS ---
Progress Note: A&P Assessment and Plan (1) Anemia: Qualifiers: Anemia type: iron deficiency Iron deficiency anemia type: chronic blood loss Qualified Code(s): D50.0 - Iron deficiency anemia secondary to blood loss (chronic) Code(s): D64.9 - Anemia, unspecified Status: Acute Assessment and Plan: The Patient lives alone and uses a walker at home for ambulation. PMHX of asthma, diverticulitis, diabetes, hypertension, GERD, cirrhosis, and leukemia. The Patient reports she was found to have low HgB about 8-9 months ago and underwent a biopsy with .She reports every weak on Saturday, she gets shots (not sure if it is either IV iron infusion or PRBC). Last Saturday, she did not receive the shot due to her HgB was 7. Unfortunately, in the subsequent days, she felt very weak. She went to the Heme/Onc clinic and received 1 U PRBC ? but still felt too tired, and her [id number] visited her home on Saturday and took her BP, which was very low. The Patient then came to [place] ED. Of note, the Patient follows up with for cirrhosis of the liver w ith portal venous hypertension. During this admission, patient GI was consulted due to low hemoglobin and, on 11/20/2024, underwent EGD, which shows no esophageal varices. Severe diffuse gastritis was seen in the fundus, in the body of the stomach, and the antrum. Evidence of portal hypertensive changes with most like pattern diffusely and marked friability. No active bleeding, no ulcers or erosions. The Patient had an endoscopy on 05/05/2024, which shows the same finding of portal hypertensive gastropathy and gastritis. I discussed this with the senior writer, who reported the only difference between the recent one and the endoscopy performed on 05/05 2024 was the portal hypertensive changes with marked friability, possibly due to Eliquis. Patient last colonoscopy was performed on 02/12/2024 which shows diverticulosis without perforation or abscess without bleeding, colonic polyp, internal hemorrhoids. Today patient received 2 units of PRBC, and her hemoglobin is 8. The Patient reports she was diagnosed with DVT on Rt leg on Oct 14 and on Eliquis. Will consult Hematology/Oncology and surgery for IVC placement. Even though IVC placement can only prevent the clotted traveling from the extremities to the lungs, the patient still has a risk of pulmonary embolism. If IVC placement is performed, the patient will need her IVC removed in 2 to 3 months. 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 Agrees with the plan not needing anticoagulation for posterior tibial vein thrombosis even though it is a deep vein. Once heme oncologist give the recommendation for anticoagulation and for possible MDS will discuss with patient her options Patient with history of Cirrhosis HGb appears around mid 7's on previous admission. Patient gets transfusions O/P with Oncology last transfusion 11/18. Recently started on Eliquis for DVT 7 days prior * CTA: cirrhosis of the liver with portal venous hypertension/ no ascites/ small right pleural effusion * HGB 6.1 POA * Occult positive * f/U after 1 unit PRBC 6.9 * Transfused 2 unit from ED and 3rd given on floor * H&H Q6HR * GI consulted and follows with Dr. Mccallum 05/2024 * In ED octreotide administered * Protonix 80 mg IV push in the ED * Resumed IVP Protonix BID * Last EGD 01/2024: with gastritis, no varices, colonoscopy with small polyps removed * 11/20/2024 underwent EGD which shows no esophageal varices. Severe diffuse gastritis was seen in the fundus, in the body of the stomach, and in the antrum. Evidence of portal hypertensive changes with most like pattern diffusely and marked friability. * Hb 8.1 stable, Isat 11 and ferritin 16.6, started 400/1000 (2) Thrombocytopenia: Code(s): D69.6 - Thrombocytopenia, unspecified Status: Acute Assessment and Plan: HX of thrombocytopenia follows with entertainment production professional in [place] for Leukemia treatment * 132 POA, plts 9.4 * Trend * Transfuse FFP <20 * Likely related to Cirrhosis (3) Cirrhosis: Qualifiers: Ascites presence: without ascites Hepatic cirrhosis type: unspecified hepatic cirrhosis Qualified Code(s): K74.60 - Unspecified cirrhosis of liver Code(s): K74.60 - Unspecified cirrhosis of liver Status: Chronic Assessment and Plan: * SHEA * Previously no HX of ascites but current CT showing small ascites * had referral to [facility] hepatology * liver enzyme within normal limits (4) Ascites: Code(s): R18.8 - Other ascites Status: Acute Assessment and Plan: * SEE Above #3 (5) Gastroesophageal reflux disease: Qualifiers: Esophagitis presence: without esophagitis Qualified Code(s): K21.9 - Gastro-esophageal reflux disease without esophagitis Code(s): K21.9 - Gastro-esophageal reflux disease without esophagitis Status: Acute Assessment and Plan: * Continue Protonix 40mg daily (6) Essential hypertension: Code(s): I10 - Essential (primary) hypertension Status: Acute Assessment and Plan: * Hypotensive on admission hold lisinopril until BP tolerates * BP per unit protocol (7) NED (acute kidney injury): Code(s): N17.9 - Acute kidney failure, unspecified Status: Acute Assessment and Plan: * Likely secondary to Anemia and dehydration * IV fluids * 2 units PRBC * resolved, Cr 0.88 Plan DVT prophylaxis on Xarelto PT/OT eval pending for discharge disposition Subjective Date/time seen: 11/24/24 12:36 Interval history: Comfortable at bedside PT/OT eval awaited Review of Systems Review of Systems: All systems reviewed & are unremarkable except as noted in HPI and below Exam Narrative: Pleasant female GI: Other: Obese Objective Data Vital Signs Vital Signs: Vital Signs - 24 hr 11/23/24 14:00 11/23/24 14:36 11/23/24 16:00 Temperature 97.9 F Pulse Rate 80 80 Respiratory Rate 14 Blood Pressure 102/54 L Pulse Oximetry 97 Oxygen Delivery 11/23/24 19:46 11/23/24 20:00 11/23/24 20:00 Temperature 98.9 F Pulse Rate 85 83 Respiratory Rate 17 Blood Pressure 118/51 L Pulse Oximetry 98 Oxygen Delivery Room Air 11/24/24 00:00 11/24/24 04:00 11/24/24 04:50 Temperature 98.0 F Pulse Rate 84 71 76 Respiratory Rate 18 Blood Pressure 117/54 L Pulse Oximetry 97 Oxygen Delivery 11/24/24 08:00 11/24/24 08:00 Temperature Pulse Rate 92 Respiratory Rate Blood Pressure Pulse Oximetry Oxygen Delivery Room Air Intake/Output Intake/Output: Intake & Output 11/21/24 11/22/24 11/23/24 11/24/24 23:59 23:59 23:59 23:59 Intake Total 1090 1580 1386 790 Output Total 1200 Balance -110 1580 1386 790 Meds/Results Medications: Active Medications Generic Name Dose Route Start Last Admin Trade Name Freq PRN Reason Stop Dose Admin Acetaminophen 650 mg 11/20/24 09:26 11/24/24 08:49 Acetaminophen 325 Mg Tablet PO 650 mg Q4H PRN Administration Mild Pain (1-3) or Fever Hydrocodone Bitart/Acetaminophen 1 tab 11/20/24 09:26 11/22/24 20:42 Hydrocodone/Acetaminophen (*Crx) 5-325 Mg Tablet PO 1 tab Q4H PRN Administration Moderate Pain (4-6) Albuterol 2 puff 11/22/24 09:04 Albuterol Sulfate (*Sp) Aerosol 1 Puff INHALATION PRN PRN Shortness Of Breath Atorvastatin Calcium 80 mg 11/22/24 09:00 11/24/24 08:48 Atorvastatin 40 Mg Tablet PO 80 mg DAILY MARK Administration Citalopram Hydrobromide 10 mg 11/22/24 09:00 11/24/24 08:48 Citalopram Hydrobromide 10 Mg Tablet PO 10 mg DAILY MARK Administration Cyanocobalamin 1,000 mcg 11/22/24 09:00 11/24/24 08:48 Cyanocobalamin 1,000 Mcg Tablet PO 1,000 mcg DAILY MARK Administration Fenofibrate 145 mg 11/22/24 09:00 11/24/24 08:48 Fenofibrate Nanocrystallized 145 Mg Tablet PO 145 mg DAILY MARK Administration Fluticasone Propionate 2 spray 11/22/24 09:04 Fluticasone Propionate 0.05% Na Spr 16 Gm Btl (*Bkc) NASAL QAM PRN Allergies Furosemide 40 mg 11/22/24 09:00 11/24/24 08:49 Furosemide 40 Mg Tablet PO 40 mg DAILY MARK Administration Iron Sucrose 400 mg/ Iron 275 mls @ 78.571 mls/hr 11/24/24 09:15 11/24/24 09:34 Sucrose 100 mg/ Sodium IVPB 11/24/24 12:44 78.57 mls/hr Chloride ONCE ONE Administration Lidocaine 1 patch 11/22/24 09:04 Lidocaine 5% Patch TOPICAL DAILY PRN pain Lisinopril 40 mg 11/22/24 21:00 11/23/24 19:47 Lisinopril 20 Mg Tablet PO 40 mg QHS MARK Administration Morphine Sulfate 2 mg 11/20/24 06:22 Morphine Sulfate (*Crx) 2 Mg/Ml Inj IV PUSH Q2H PRN Pain Rated 7-10 Naloxone HCl 0.1 mg 11/20/24 09:26 Naloxone Hcl 0.4 Mg/Ml Vial IV PUSH Q2M PRN Opiate Reversal Ondansetron HCl 4 mg 11/20/24 09:26 Ondansetron Inj 4 Mg/2 Ml Vial IV PUSH Q6H PRN Nausea And Vomiting Pantoprazole Sodium 40 mg 11/22/24 09:00 11/24/24 08:49 Pantoprazole 40 Mg Tablet PO 40 mg QAM MARK Administration Rivaroxaban 10 mg 11/24/24 09:00 11/24/24 08:49 Rivaroxaban 10 Mg Tablet PO 10 mg QAM MARK Administration Radiology Results: ITS Impressions Chest/Abdomen/Pelvis CTA 11/20/24 05:54 IMPRESSION: 1. No pulmonary embolus. 2. Small right pleural effusion. 3. Cirrhosis of the liver portal venous hypertension. 4. Small volume of ascites. Venous Doppler Study 11/20/24 16:25 IMPRESSION: Noncompressible posterior tibial vein suggestive of deep vein thrombosis. Labs Labs: Laboratory Results - last 24 hr 11/23/24 11/24/24 04:41 04:35 WBC 2.6 L RBC 2.82 L Hgb 8.1 L Hct 26.6 L MCV 94.3 MCH 28.7 MCHC 30.5 L RDW 16.2 H Plt Count 94 L MPV 11.4 H Immature Gran % (Auto) 0.8 H Neut % (Auto) 65.4 Lymph % (Auto) 21.2 Crisp % (Auto) 10.2 H Eos % (Auto) 2.4 Baso % (Auto) 0.0 L Lymph # (Auto) 0.54 L Crisp # (Auto) 0.3 Eos # (Auto) 0.1 Baso # (Auto) 0.0 Abs Immat Gran (auto) 0.02 Absolute Neuts (auto) 1.7 Absolute Nucleated RBC 0.000 Nucleated RBC % 0.0 % Immature Plt Fraction 5.2 Sodium 134 L Potassium 4.1 Chloride 101 Carbon Dioxide 31 H Anion Gap 2 L BUN 24 H Creatinine 0.88 Estim Creat Clear Calc 42 Estimated GFR > 60 Glucose 94 Calcium 9.3 Iron 34 L TIBC 306 % Saturation 11 L Ferritin 16.60 Total Bilirubin 1.0 AST 38 H ALT 24 Alkaline Phosphatase 84 Total Protein 5.0 L Albumin 2.5 L Quality VTE Prophylaxis VTE prophylaxis: mechanical ordered
[2024-11-25] VITALS: PULSE 88
[2024-11-25 04:00] VITALS: PULSE 88
[2024-11-25 05:29] LABS: Eosinophils Absolute Auto 0.1 K/mm3 (0-0.3); Eosinophils Percent Auto 3.2 % (0-4.4); Hematocrit 24.7 % (37.0-47.0); Hemoglobin 7.5 g/dL (12.0-15.0); Immature Platelet Fraction Pct 4.8 % (0.9-11.2); Lymphocytes Absolute Auto 0.57 K/mm3 (0.9-3.2); Lymphocytes Percent Auto 22.9 % (18.3-44.2); Mean Corpuscular HGB Conc 30.4 g/dl (32-36); Mean Corpuscular Hemoglobin 28.3 pg (26-34); Mean Corpuscular Volume 93.2 fl (80-100); Mean Platelet Volume 11.6 fl (7.4-10.4); Monocytes Absolute Auto 0.3 K/mm3 (0.1-0.6); Monocytes Percent Auto 11.2 % (2.6-8.5); Neutrophils Absolute Auto 1.6 K/mm3 (1.3-6.7); Neutrophils Percent Auto 62.7 % (45.5-73.1); Platelet Count Result 94 k/mm3 (150-375); Red Blood Count 2.65 M/mm3 (4.2-5.4); Red Cell Distribution Width 16.2 % (11.5-14.5); White Blood Count 2.5 K/mm3 (4.5-10.0)
[2024-11-25 05:43] LABS: Alanine Aminotransferase 27 U/L (6-35); Albumin Level 2.6 g/dL (3.5-5.1); Alkaline Phosphatase 82 U/L (38-126); Anion Gap 2 mmol/L (4-12); Aspartate Amino Transferase 42 U/L (14-36); Blood Urea Nitrogen 27 mg/dL (7-17); Calcium 9.3 mg/dL (8.4-10.2); Carbon Dioxide 31 mmol/L (22-30); Chloride 101 mmol/L (98-107); Estimated CRCL calculation 38 ml/min; Estimated Glomerular Filt Rate 55; Glucose 86 mg/dL (65-110); Potassium 4.3 mmol/L (3.4-5.0); Sodium 134 mmol/L (137-145)
[2024-11-25 05:50] VITALS: BP 114/51; PULSE 93; RESP 16; TEMP 36.9; O2SAT 95
[2024-11-25 05:55] LABS: Anisocytosis 1+; Band Neutrophils Percent 0 % (0-6); Ovalocytes 1+; Platelet Estimate Decreased (Adequate); Schistocytes None Seen
[2024-11-25] MEDS: CYANOCOBALAMIN 1,000 MCG TABLET 1000 MCG PO (08:04)
[2024-11-25] MEDS: FENOFIBRATE NANOCRYSTALLIZED 145 MG TABLET PO (08:04)
[2024-11-25] MEDS: ACETAMINOPHEN 325 MG TABLET 650 MG PO (08:04)
[2024-11-25] MEDS: ATORVASTATIN 40 MG TABLET 80 MG PO (08:04)
[2024-11-25] MEDS: FUROSEMIDE 40 MG TABLET PO (08:04)
[2024-11-25] MEDS: RIVAROXABAN 10 MG TABLET PO (08:04)
[2024-11-25] MEDS: CITALOPRAM HYDROBROMIDE 10 MG TABLET PO (08:04)
[2024-11-25] MEDS: PANTOPRAZOLE 40 MG TABLET PO (08:04)
[2024-11-25] MEDS: IRON SUCROSE COMPLEX 400 MG, IRON SUCROSE COMPLEX 100 MG in SODIUM CHLORIDE 0.9% IV 250 ML 78.57 MG IVPB (10:08)
--- NOTE | 2024-11-25 12:33 | P.DS_ITS ---
DS: Admitting Diagnosis Discharge Date 11/24/24 Admitting Diagnosis Low Blood Pressure DS: Discharge Diagnosis Discharge Diagnosis (1) Pancytopenia: Code(s): D61.818 - Other pancytopenia Status: Chronic (2) NED (acute kidney injury): Code(s): N17.9 - Acute kidney failure, unspecified Status: Acute DS: Summary Hospital Course Hospital Course: Patient is a 79-year-old female who presented to the emergency department with complaints generalized weakness and low blood pressure readings at home. Patient has a history of diverticulitis, diabetes, hypertension GERD, cirrhosis, leukemia which she is undergoing current treatment for. Patient reports she was at her oncologist when day prior after she called to report her symptoms at which time she did receive 1 unit of PRBCs. Patient states she continued to have weakness and had her daughter take her blood pressure at which time was extremely low as well as experiencing dark tarry stool for the last 4 days. Zhane walsh reports she does commonly gets blood transfusions while undergoing her therapy for cancer however patient was diagnosed with a new DVT to the right lower extremity and was started on Eliquis 7 days prior. Findings in the emergency department showed a hemoglobin 6.1 and a BP 99/40. Other labs reviewed and unremarkable other vital stable, CT showed no pulmonary embolism, small right pleural effusions, cirrhosis of the liver with portal venous hypertension, and small ascites. In the emergency department patient received octreotide, IVP protonix, and 3 units of PRBCs. Patient was admitted to the medical unit with consult to GI plans for EGD later on that day. Patient at time of assessment denied any chest pain, shortness a breath, dizziness but did endorse some nausea without vomiting. Patient was managed for anemia, received 2 units of PRBC, iron studies showed iron deficiency and patient received 1 g IV iron. GI was consulted and evaluated patient and recommended Oncology eval. Bianca noted patient is not a TIPS candidate. Oncology evaluated and recommended low dose Anticoagulation while noting that patient anemia is likely from MDS and patietn should follow up with primary oncology. NED resolved. patient will continue other home meds. F/u with PCP in 3-5 days F/u with GI and oncology as instructed Time Spent with Patient Time attestation: Total time spent providing and/or coordinating discharge services: DS: Data Data Completed and Pending Labs on day of discharge: Labs from last 24 hours 11/25/24 04:46 WBC 2.5 L RBC 2.65 L Hgb 7.5 L Hct 24.7 L MCV 93.2 MCH 28.3 MCHC 30.4 L RDW 16.2 H Plt Count 94 L MPV 11.6 H Immature Gran % (Auto) 0.0 Neut % (Auto) 62.7 Lymph % (Auto) 22.9 [place] % (Auto) 11.2 H Eos % (Auto) 3.2 Baso % (Auto) 0.0 L Lymph # (Auto) 0.57 L [place] # (Auto) 0.3 Eos # (Auto) 0.1 Baso # (Auto) 0.0 Abs Immat Gran (auto) 0.00 Absolute Neuts (auto) 1.6 Absolute Nucleated RBC 0.000 Band Neutrophils % 0 Nucleated RBC % 0.0 Platelet Estimate Decreased % Immature Plt Fraction 4.8 Anisocytosis 1+ Ovalocytes 1+ Schistocytes None seen Sodium 134 L Potassium 4.3 Chloride 101 Carbon Dioxide 31 H Anion Gap 2 L BUN 27 H Creatinine 0.98 Estim Creat Clear Calc 38 Estimated GFR 55 L Glucose 86 Calcium 9.3 Magnesium 2.0 Total Bilirubin 1.0 AST 42 H ALT 27 Alkaline Phosphatase 82 Total Protein 5.0 L Albumin 2.6 L Discharge Plan Discharge Attending physician on discharge: Mike Florez Consulting providers: Deborah Dior; Bunny Maravilla Discharging Clinician: Mike Florez Anticipated Discharge Date/Time: 11/25/24 10:59 Patient Disposition: Home, Self-Care Activity: as tolerated Diet: as tolerated and diabetic Patient Instructions: Antibiotic Form Patient Language: [place] Stand Alone Forms: General Discharge Information Follow-up/Referrals: Bunny Maravilla MD [Physician] - (F/w oncology as scheduled) Grupo,DO Shivam [Primary Care Provider] - (F/u with PCP in 3-5 days) Discharge Medications: New fenofibrate nanocrystallized 145 mg Tablet 145 mg PO DAILY 30 Days Qty: 30 1RF Xarelto 10 mg Tablet 10 mg PO QAM 30 Days Qty: 30 1RF Continued albuterol sulfate [Ventolin HFA] 90 mcg/actuation HFA aerosol inhaler 2 puff INHALATION PRN PRN (Reason: Shortness Of Breath) Qty: 8.5 2RF furosemide 20 mg Tablet 20 mg PO DAILY cyanocobalamin (vitamin B-12) 1,000 mcg Capsule 1,000 mcg PO DAILY citalopram 10 mg Tablet 10 mg PO DAILY lisinopril 20 mg Tablet 20 mg PO QHS pantoprazole 40 mg Tablet,Delayed Release (Dr/Ec) 40 mg PO QAM lidocaine 5 % adhesive patch,medicated 1 patch topical DAILY PRN (Reason: pain) Qty: 15 0RF Patient Comments: Applies to R leg Rx Instructions: leave on most painful area for up to 12 hrs atorvastatin 80 mg tablet 80 mg PO DAILY Patient Comments: Pt family said she had not started taking this new med yet. furosemide 40 mg tablet 40 mg PO DAILY fluticasone propionate 50 mcg/actuation Marshall,Suspension 2 spray intranasal QAM PRN (Reason: Allergies) ferrous sulfate [FeroSul] 325 mg (65 mg iron) tablet 325 mg PO DAILY cholecalciferol (vitamin D3) 25 mcg (1,000 unit) capsule 1,000 unit PO DAILY magnesium oxide 400 mg magnesium tablet 400 mg PO DAILY docusate sodium [Colace] 100 mg capsule 100 mg PO DAILY Discontinued Eliquis DVT-PE Treat 30D Start 5 mg (74 tabs) tablets,dose pack See Rx Instructions .ROUTE .COMPLEX Rx Instructions: DVT- PE treat 30D started on 11/12/24 Other Ambulatory Orders: Complete Blood Count no Diff (Routine) Timeframe: 2 Days Location: Determined by Patient Ordered By: Mike Florez Date of admission: 11/20/24 10:23 Primary Care Provider: GrupoShivam Admitting Provider: Geronimo Padilla Attending physician on admission: Mike Florez Condition: Stable
== END 2024-11-25 16:15 | disposition home or self-care (01) | DRG 809 ==
LOC: ANHED 02:22 → ANHIMU 07:08 → ANH2MED 11-21 17:14
PROVIDERS: Internal Medicine; Internal Medicine Gastroenterology; Internal Medicine Hematology & Oncology; Nurse Practitioner Family; Surgery; Admitting Provider General Practice; Emergency Provider Student in an Organized Health Care Education/Training Program; PCP Student in an Organized Health Care Education/Training Program; Visit Provider Internal Medicine
PROC: 0DJ08ZZ Inspection of Upper Intestinal Tract, Via Natural or Artificial Opening Endoscopic (ICD-10-PCS; principal; 2024-11-20 15:30)
DX: D61.818 Other pancytopenia (principal); C95.90 Leukemia, unspecified not having achieved remission; N17.9 Acute kidney failure, unspecified; K76.6 Portal hypertension; R18.8 Other ascites; I82.441 Acute embolism and thrombosis of right tibial vein; D46.9 Myelodysplastic syndrome, unspecified; D50.0 Iron deficiency anemia secondary to blood loss (chronic); R19.5 Other fecal abnormalities; I10 Essential (primary) hypertension; K74.60 Unspecified cirrhosis of liver; K31.89 Other diseases of stomach and duodenum; K75.81 Nonalcoholic steatohepatitis (NASH); K57.30 Diverticulosis of large intestine without perforation or abscess without bleeding; K21.9 Gastro-esophageal reflux disease without esophagitis; J45.909 Unspecified asthma, uncomplicated; E11.9 Type 2 diabetes mellitus without complications; E78.00 Pure hypercholesterolemia, unspecified; G47.33 Obstructive sleep apnea (adult) (pediatric); F41.9 Anxiety disorder, unspecified; Z96.652 Presence of left artificial knee joint; Z20.822 Contact with and (suspected) exposure to COVID-19; Z79.01 Long term (current) use of anticoagulants; Z86.0101 Personal history of adenomatous and serrated colon polyps; Z85.42 Personal history of malignant neoplasm of other parts of uterus
CPT/HCPCS: 36415; 36430; 71275; 74177; 80053; 81003; 82550; 82728; 82948; 83540; 83550; 83735; 84238; 85014; 85018; 85025; 85055; 85380; 85610; 85730; 86850; 86900; 86901; 86923; 87637; 93005; 93971; 96361; 96365; 96375; 99285; A9270; G0378; J0696; J1756; J2003; J2354; J2405; J2470; J2704; J7030; J7050; J7120; P9016; Q9967